=== PATIENT | male | born 1955 | race Caucasian/White ===

== ENCOUNTER → 2019-10-06 10:58 | Outpatient (BNVA) | payer MEDICARE, SELFPAY | PROVIDERS: Family Provider Nurse Practitioner Family; PCP Nurse Practitioner Family; Visit Provider Internal Medicine Cardiovascular Disease | DX: I73.9 Peripheral vascular disease, unspecified (principal); I10 Essential (primary) hypertension; Z98.890 Other specified postprocedural states; E78.5 Hyperlipidemia, unspecified; J44.9 Chronic obstructive pulmonary disease, unspecified; Z72.0 Tobacco use | CPT/HCPCS: 80048; 85025 ==

== ENCOUNTER 2020-04-07 09:22 | Emergency (ER) | payer MEDICARE, SELFPAY ==
[2020-04-07] VITALS (8 sets, daily range): BP systolic 101–136; BP diastolic 64–95; PULSE 67–90; RESP 15–20; TEMP 36.4; O2SAT 94–95; BMI 22.3
--- NOTE | 2020-04-07 09:37 | XRR_ITS ---
PROCEDURE INFORMATION: Exam: XR Chest, 1 View Exam date and time: 04/07/2020 9:38 AM Age: 64 years old Clinical indication: Chest pain; Type not specified TECHNIQUE: Imaging protocol: XR of the chest Views: 1 view. COMPARISON: CR Chest 1 [place] [address] 09/29/2018 1:11 PM FINDINGS: Lungs: COPD and interstitial prominence. Pleural space: Mild costophrenic angle blunting. Heart/Mediastinum: No cardiomegaly. Vasculature: Ectasia of the thoracic aorta. Bones/joints: Degenerative change. Soft tissues: Bilateral nipple shadows. XR/XR chest 1V portable [id number] IMPRESSION: COPD and interstitial prominence.
--- NOTE | 2020-04-07 09:37 | ECG_ITS ---
[facility] Test Date: 2020-04-07 Pat Name: Karthik Gordon Department: Room: Gender: Male Director Search Marketing Strategies: : 1955 Requested By: Garrett Vergara Order Number: [id number] Patti MD: Sarah Meza M.D. Measurements Intervals [place] Rate: 63 P: 71 [place]: 175 QRS: 71 QRSD: 105 T: 76 QT: 405 QTc: 417 Interpretive Statements SINUS RHYTHM Compared to ECG 04/07/2020 11:26:33 Sinus bradycardia no longer present Electronically Signed On 04-08-2020 8:37:28 CDT by Sarah Meza M.D. [id number]
--- NOTE | 2020-04-07 09:45 | W.ED.CHESTPA ---
HPI - Chest Pain General: Chief Complaint: Chest Pain Stated Complaint: CP Time Seen by Provider: 04/07/20 09:24 History of Present Illness: HPI narrative: 64-year-old male comes in complaining of chest pain. Chest pain began yesterday morning and lasted throughout the day he works throughout the day as well. He went to sleep last night woke up he still had the chest pain so he took a single nitro and low back sleep and woke up this morning he was still having the pain. He notes the pain is worse when he takes a deep breath is also worse when he palpates across the left upper anterior chest wall pain does not radiate into his neck or jaw or back. He is not had any syncopal episodes he does state this morning he was diaphoretic little bit due to the pain and it was difficult to take a deep breath. 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) Associated symptoms: Reports no associated symptoms; Deny abdominal pain, dyspnea, fever(s), nausea or vomiting Treatment prior to arrival: nitroglycerin (Did not resolve) Review of Systems Const: Denies: fever(s), chills, body aches, change in appetite, fatigue or malaise ENMT: Denies: throat pain, ear or mastoid pain, nasal discharge or nasal congestion Card: Denies: chest pain, edema, dyspnea on exertion or orthopnea Resp: Denies: dyspnea, productive cough or non-productive cough GI: Denies: abdominal pain, nausea, vomiting, hematemesis, coffee ground emesis, diarrhea, constipation, bloating, hematochezia or melena : Denies: flank pain, dysuria, urinary frequency or urinary urgency Skin/Breast: Denies: rash or pruritus PFS ED PFSH: Medical History COPD (chronic obstructive pulmonary disease) Erectile 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 HTN (hypertension) Hyperlipidemia PAD (peripheral artery disease) S/P angiogram of extremity Tobacco abuse Family History Father Diabetes Brother , AGE 60 CAD (coronary artery disease) Myocardial infarction Mother Diabetes Grandfather Diabetes MATERNAL Grandmother Diabetes MATERNAL Social History Smoking and tobacco status: current every day smoker cigarettes Alcohol intake: current Alcohol intake frequency: holidays/special occasions only Marital status: service: No 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 occupational status: 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 Physical Exam Const: COMMON NORMALS: no acute distress GENERAL APPEARANCE: cooperative and comfortable ORIENTATION/CONSCIOUSNESS: Yes awake, Yes oriented to person, Yes oriented to place and Yes oriented to time HENMT: COMMON NORMALS: normocephalic and atraumatic HEAD & SCALP: normocephalic and atraumatic Eye: COMMON NORMALS: Equal, round and reactive pupils present, EOMs intact bilaterally, conjunctivae normal and no scleral icterus CONJUNCTIVA: Yes conjunctivae normal PUPIL: Yes Equal, round and reactive pupils present Neck/C-Spine: COMMON NORMALS: full ROM, no lymphadenopathy, supple and no JVD Lymph: LYMPHATIC: no lymphadenopathy noted and no lymphedema noted Chest: OTHER: Chest pain reproducible with palpation across the left side of the anterior chest wall as well as with deep inspiration and movement of the arm. Patient endorses that the same pain that brought him in. Resp: COMMON NORMALS: normal respiratory effort, No retractions, No use of accessory muscles and clear to auscultation bilaterally AUSCULTATION: clear to auscultation bilaterally Cardio: COMMON NORMALS: no JVD, regular rate, regular rhythm and No murmurs present (Cardio) RATE: regular rate RHYTHM: regular rhythm GI: COMMON NORMALS: Soft to palpation and No hepatosplenomegaly present AUSCULTATION: Yes normoactive bowel sounds PALPATION: Yes Soft to palpation, No Tenderness to palpation present (GI), No Guarding due to palpation present (GI) and Yes No hepatosplenomegaly present Extremity: COMMON NORMALS: normal to inspection, capillary refill normal, no clubbing, cyanosis or edema, no calf tenderness and no pedal edema Neuro: SENSORIUM/ORIENTATION: Yes oriented to person, Yes oriented to place and Yes oriented to time Skin: COMMON NORMALS: no rashes or lesions noted GENERAL SKIN EXAM: no rashes or lesions noted Course Vital Signs: Vital signs: Vital Signs Temperature 97.6 F 04/07/20 09:24 Pulse Rate 67 04/07/20 15:55 Respiratory Rate 18 04/07/20 15:55 Blood Pressure 136/95 04/07/20 15:55 Pulse Oximetry 95 04/07/20 09:33 MDM - Chest Pain MDM Narrative: Medical decision making narrative: Troponin negative EKG unremarkable. History not suggestive of cardiac pain at this time. Concerning prior as he does have a history of coronary disease he is not having anything related to an aerobic exertion and is completely reproducible with palpation and position and movement of the arm. We will go ahead and discharge her for today continue same medications return if has any problems and we will set him up for an outpatient stress test Lab Data: Labs: Lab Results 04/07/20 04/07/20 04/07/20 Range/Units 14:10 14:10 14:10 WBC 4.8 (4.0-10.0) 10^3/ uL RBC 4.26 (4.1-5.3) 10^6/u L Hgb 12.8 (11.7-16.6) g/dL Hct 39.8 L (42.0-52.0) % MCV 93.4 (80-94) fL MCH 30.0 (28.0-34.0) pg MCHC 32.2 (30.0-36.0) g/dL RDW 12.6 (12.1-15.1) % Plt Count 241 (130-400) 10^3/c mm MPV 9.1 (7.4-10.4) fL Neut % (Auto) 71.8 % Lymph % (Auto) 19.7 % [place] % (Auto) 5.8 % Eos % (Auto) 1.7 % Baso % (Auto) 0.8 % Neut # (Auto) 3.47 (1.8-7.7) 10^3/u L Lymph # (Auto) 1.0 (0.8-4.8) 10^3/u L [place] # (Auto) 0.3 (0.2-0.9) 10^3/u L Eos # (Auto) 0.1 (0.0-0.8) 10^3/u L Baso # (Auto) 0.0 (0.0-0.1) 10^3/u L Nucleated RBC % (a uto) 0 % Nucleated RBCs # 0.0 /100WBC Sodium 138 (136-145) mmol/L Potassium 4.3 (3.5-5.1) mmol/L Chloride 106 (98-107) mmol/L Carbon Dioxide 23 (22-29) mmol/L Anion Gap 13.3 (5-19) BUN 18 (8-23) mg/dL Creatinine 0.9 (0.7-1.2) mg/dL GFR Calculation 84.7 L (90-130) mL/min Glucose 128 H (65-115) mg/dL Calculated Osmolal ity 284 L (285-295) mOsm/k g Calcium 9.3 (8.5-10.5) mg/dL Total Bilirubin 1.0 (0.15-1.2) mg/dL AST 16 (0-40) U/L ALT 14 (0-41) U/L Alkaline Phosphata se 92 (40-130) IU/L Troponin T Baselin e 14 (0-15) ng/L Total Protein 6.2 L (6.6-8.7) g/dL Albumin 4.2 (3.5-5.2) g/dL Globulin 2.0 (1.3-4.6) g/dL Discharge Plan Discharge Patient Disposition: Home Clinical Impression: Anterior chest wall pain Condition: Stable Prescriptions: No Action aspirin [Adult Low Dose Aspirin] 81 mg tablet,delayed release (DR/EC) 81 mg PO DAILY RF: 0 atorvastatin 20 mg tablet 20 mg PO DAILY Qty: 90 RF: 5 cilostazol 100 mg tablet 100 mg PO BID Qty: 180 RF: 5 albuterol sulfate 90 mcg/actuation HFA aerosol inhaler 2 puff INHALATION Q6H PRN (Reason: shortness of breath or wheezing) Qty: 6.7 RF: 2 Symbicort 160-4.5 mcg/actuation HFA aerosol inhaler 2 puff INHALATION BID Qty: 6 RF: 2 clopidogrel 75 mg tablet 75 mg PO DAILY Qty: 90 RF: 3 Referrals: Navjot Barragan MD [Physician] - (Referred for graded exercise stress test) Discharge Diet: Usual diet Discharge Activity: Limit activity as instructed Activity Restrictions/Additional Instructions: Case management will call to set you up with a graded exercise stress test Discharge Date/Time: 04/07/20 15:55 Coding Level of Care Code ED Finisher Polisher for Kvng Fwd Exam Comprehensive
--- NOTE | 2020-04-07 11:37 | ECG_ITS ---
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 Measurements Intervals [place] Rate: 58 P: 71 [place]: 184 QRS: 71 QRSD: 88 T: 79 QT: 441 QTc: 435 Interpretive Statements SINUS BRADYCARDIA Compared to ECG 04/07/2020 09:30:02 Sinus rhythm no longer present Electronically Signed On 04-07-2020 12:44:00 CDT by Sarah Meza M.D. [id number]
[2020-04-07 14:22] LABS: Basophils % 0.8 %; Eosinophils # 0.1 10^3/uL (0.0-0.8); Eosinophils % 1.7 %; Hematocrit 39.8 % (42.0-52.0); Hemoglobin 12.8 g/dL (11.7-16.6); Lymphocytes % 19.7 %; Mean Corpuscular HGB Conc 32.2 g/dL (30.0-36.0); Mean Corpuscular Volume 93.4 fL (80-94); Mean Platelet Volume 9.1 fL (7.4-10.4); Monocytes # 0.3 10^3/uL (0.2-0.9); Monocytes % 5.8 %; Neutrophils # 3.47 10^3/uL (1.8-7.7); Neutrophils % 71.8 %; Nucleated Red Blood Cells % 0 %; Platelet Count 241 10^3/cmm (130-400); Red Blood Count 4.26 10^6/uL (4.1-5.3); Red Cell Distribution Width 12.6 % (12.1-15.1); White Blood Count 4.8 10^3/uL (4.0-10.0)
[2020-04-07 15:03] LABS: Alanine Aminotransferase 14 U/L (0-41); Albumin Level 4.2 g/dL (3.5-5.2); Alkaline Phosphatase 92 IU/L (40-130); Anion Gap 13.3 (5-19); Aspartate Amino Transferase 16 U/L (0-40); Blood Urea Nitrogen 18 mg/dL (8-23); Calcium 9.3 mg/dL (8.5-10.5); Carbon Dioxide 23 mmol/L (22-29); Chloride 106 mmol/L (98-107); Glomerular Filtration Rate 84.7 mL/min (90-130); Glucose 128 mg/dL (65-115); Osmolality Calculated 284 mOsm/kg (285-295); Potassium 4.3 mmol/L (3.5-5.1); Sodium 138 mmol/L (136-145); Total Protein 6.2 g/dL (6.6-8.7)
[2020-04-07 15:05] LABS: Troponin(5th) Baseline 14 ng/L (0-15)
--- NOTE | 2020-04-07 15:37 | ECG_ITS ---
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 Measurements Intervals [place] Rate: 84 P: 75 [place]: 181 QRS: 76 QRSD: 93 T: 75 QT: 390 QTc: 462 Interpretive Statements SINUS RHYTHM POSSIBLE LEFT ATRIAL ENLARGEMENT [-0.1mV P WAVE IN V1/V2] Compared to ECG 09/29/2018 12:30:26 No significant changes Electronically Signed On 04-07-2020 12:44:05 CDT by Sarah Meza M.D. [email or web address] [email or web address].MJH/store/[id number]
--- NOTE | 2020-04-09 14:53 | DCPLANNER ---
architectural manager had message to schedule an outpatient stress test for patient. architectural manager got order signed, faxed order to centralized scheduling. architectural manager got conformation that fax was received by centralized scheduling. architectural manager will call for appointment information.
--- NOTE | 2020-04-13 11:10 | DCPLANNER ---
Patient has an out patient stress test scheduled for Friday, April 24, 2020 at 1:00. Centralized scheduling will call patient with appointment information.
--- NOTE | 2020-05-24 07:50 | DCPLANNER ---
Patient had an outpatient stress test scheduled for 04.24.20 - patient did attend the stress test.
== END 2020-04-07 15:55 | disposition home or self-care (01) ==
PROVIDERS: Emergency Provider Family Medicine; PCP Nurse Practitioner Family
DX: R07.89 Other chest pain (principal); Z79.02 Long term (current) use of antithrombotics/antiplatelets; Z79.82 Long term (current) use of aspirin; J44.9 Chronic obstructive pulmonary disease, unspecified; I10 Essential (primary) hypertension; E78.5 Hyperlipidemia, unspecified; F17.210 Nicotine dependence, cigarettes, uncomplicated
CPT/HCPCS: 12345; 71045; 80053; 84484; 85025; 93005; 99282; 99284

== ENCOUNTER 2020-04-24 12:11 | Outpatient (CLI) | payer MEDICARE, SELFPAY ==
[2020-04-24 13:00] VITALS: BMI 23.0
--- NOTE | 2020-04-24 13:00 | ECG_ITS ---
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 Interpretive Statements NAME OF STUDY: TREADMILL STRESS TEST INDICATION: Chest Pain EXERCISE DATA: The patient was exercised by Travon protocol. Baseline heart rate was 63 beats per minute. Baseline blood pressure was 127/66 millimeters of mercury. Target heart rate was 155 beats per minute. Maximum heart rate achieved was 132, which was 85 % of the target heart rate. Maximum blood pressure was 186/85 millimeters of mercury. Total exercise time was 8 minutes 22. Maximum METs achieved was 10.2, maximum VO2 was 35.7. The reason for ending the test was maximum effort achieved. The patient complained of during the stress test, which then resolved at the end of the test. ELECTROCARDIOGRAM: BASELINE: Sinus rhythm, normal axis, no significant ST-T changes at the baseline noted. EXERCISE: At the peak exercise level, no significant ST-T changes suggestive of ischemia noted. RECOVERY: During the recovery period, heart rate dropped appropriately. No significant ST-T changes in the recovery suggestive of ischemia noted. CONCLUSION: 1. Exercise capacity. 2. Heart rate response was appropriate. 3. Blood pressure response was appropriate. 4. Symptoms not suggestive of ischemia. 5. Electrocardiogram portion of the stress test was not suggestive of ischemia. 6. Nuclear scan will be documented separately. Electronically Signed On 05-02-2020 19:14:47 CDT by Navjot Barragan M.D. [id number]
[2020-04-24 13:14] VITALS: BP 182/78; PULSE 90
== END 2020-04-24 12:12 | disposition home or self-care (01) ==
PROVIDERS: PCP Nurse Practitioner Family; Visit Provider Internal Medicine Cardiovascular Disease
DX: R07.89 Other chest pain (principal); I10 Essential (primary) hypertension; I73.9 Peripheral vascular disease, unspecified
CPT/HCPCS: 93017

== ENCOUNTER 2021-01-03 07:31 | Emergency (ER) | payer MEDICARE, SELFPAY ==
[2021-01-03 07:36] VITALS: BP 134/82; PULSE 100; RESP 18; TEMP 36.4; O2SAT 96; BMI 22.9
--- NOTE | 2021-01-03 07:45 | XR_ITS ---
WS: [id number] Portable AP upright chest, 01/03/2021 Clinical Data: dyspnea/cough Comparison: Portable chest, 04/07/2020. Findings: No nodules, masses or effusions are seen. The heart is normal. The pulmonary vascularity is not increased. No pneumonia or pneumothorax is seen. The diaphragms are flattened. Monitor leads are on the chest wall. XR/XR chest 1V portable [id number] Impression: Hyperinflation.
--- NOTE | 2021-01-03 07:46 | CT_ITS ---
WS: [id number] CT scan of the head, 01/03/2021 Clinical Data: headache x 2 wks Comparison: CT head, 02/18/2016. DLP: 958.[address] scans at [facility] use at least one of these dose optimization techniques: automat ed exposure control; mA and/or kV adjustment per patient size (includes targeted exams where dose is matched to clinical indication); or iterative reconstruction. Findings: The ventricular system is modestly dilated without shift. No recent infarct or hemorrhage is seen. Th ere are no abnormal intracerebral masses. The cerebellum and brainstem are not remarkable. Bony windows of the skull and skull base show no fractures or erosions. The mastoid air cells, international project engineer al auditory canals, sella turcica, intraorbital contents, and paranasal sinuses are unremarkable. CT/CT head wo con* [id number] Impression: Negative CT scan of the head
--- NOTE | 2021-01-03 07:46 | ECG_ITS ---
[facility] Test Date: 2021-01-03 Pat Name: Karthik Gordon Department: Room: Gender: Male Back Tender: : 1955 Requested By: Garrett Vergara Order Number: [id number] Patti MD: Coco Yarbrough M.D. Measurements Intervals [place] Rate: 82 P: 73 WI: 177 QRS: 84 QRSD: 91 T: 77 QT: 389 QTc: 457 Interpretive Statements SINUS RHYTHM Compared to ECG 04/07/2020 15:27:20 No significant changes Electronically Signed On 01-03-2021 20:48:04 CDT by Coco Yarbrough M.D. [email or web address] [facility] hospitalAlien Technologyohio[facility] hospitalShang[facility] e[employer]store/[id number]
--- NOTE | 2021-01-03 07:55 | W.ED.WEAKNES ---
HPI - Weakness General: Chief complaint: Weakness Stated complaint: Consistent Head Pain/Weakness Time Seen by Provider: 01/03/21 07:37 History of Present Illness: HPI Narrative: 65-year-old male presents to the emergency room complaining of just not feeling well. He states he feels weak a shaking and he has headaches that come and go. He has not previously had significant headaches in the past. Headaches are predominantly on the left frontal area. They do not affect his vision has not had any dizziness no photophobia or photophobia has tried some [id number] medications for them. He denies any difficulty with vision speech or swallowing that does not affect his gait or balance. MD Complaint: generalized weakness Onset (ago): week(s) (2) Duration: intermittent Location: generalized Severity: moderate Quality: aching Relieving factors: none Exacerbating factors: none Associated symptoms: Reports headache(s); Denies chest pain, chills, confusion, melena, decreased appetite, diaphoresis, dysuria, easy bruising, fever(s), myalgias, nausea, rash, short of breath, syncope or vomiting Review of Systems Const: Denies: fever(s), chills or diaphoresis ENMT: Denies: throat pain, ear or mastoid pain, nasal discharge or nasal congestion Card: Denies: chest pain or syncope Resp: Denies: dyspnea, productive cough or non-productive cough GI: Denies: nausea, vomiting or melena : Denies: dysuria Skin/Breast: Denies: rash or pruritus Neuro: Reports: headache(s); Denies: confusion Regis/Lymph: Denies: easy bruising PFSH ED PFSH: Medical History CAD (coronary artery disease) COPD (chronic obstructive pulmonary disease) Erectile 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 HTN (hypertension) Hyperlipidemia PAD (peripheral artery disease) S/P angiogram of extremity Tobacco abuse Family History Father Diabetes Brother , AGE 60 CAD (coronary artery disease) Myocardial infarction Mother Diabetes Grandfather Diabetes MATERNAL Grandmother Diabetes MATERNAL Social History Smoking and tobacco status: current every day smoker cigarettes Alcohol intake: current Alcohol intake frequency: holidays/special occasions only Marital status: service: No 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 occupational status: 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 Physical Exam Const: COMMON NORMALS: no acute distress GENERAL APPEARANCE: cooperative and comfortable ORIENTATION/CONSCIOUSNESS: Yes awake, Yes oriented to person, Yes oriented to place and Yes oriented to time HENMT: COMMON NORMALS: normocephalic, atraumatic, hearing grossly normal bilaterally, external ears normal, EAC's normal, TM's normal bilaterally, Normal nasal mucous membranes and turbinates present, moist oral mucous membranes and oropharynx normal HEAD & SCALP: normocephalic and atraumatic NOSE: Normal nasal mucous membranes and turbinates present EXTERNAL EAR: Yes external ears normal EXTERNAL AUDITORY CANAL: EAC's normal TYMPANIC MEMBRANE: TM's normal bilaterally Eye: COMMON NORMALS: Equal, round and reactive pupils present, EOMs intact bilaterally, conjunctivae normal and no scleral icterus CONJUNCTIVA: Yes conjunctivae normal PUPIL: Yes Equal, round and reactive pupils present Neck/C-Spine: COMMON NORMALS: full ROM, no lymphadenopathy, supple and no JVD Lymph: LYMPHATIC: no lymphadenopathy noted and no lymphedema noted Resp: COMMON NORMALS: normal respiratory effort, No retractions, No use of accessory muscles and clear to auscultation bilaterally AUSCULTATION: clear to auscultation bilaterally Cardio: COMMON NORMALS: no JVD, regular rate, regular rhythm and No murmurs present (Cardio) RATE: regular rate RHYTHM: regular rhythm GI: COMMON NORMALS: Soft to palpation and No hepatosplenomegaly present AUSCULTATION: Yes normoactive bowel sounds PALPATION: Yes Soft to palpation, No Tenderness to palpation present (GI), No Guarding due to palpation present (GI) and Yes No hepatosplenomegaly present Extremity: COMMON NORMALS: normal to inspection, capillary refill normal, no clubbing, cyanosis or edema, no calf tenderness and no pedal edema Neuro: SENSORIUM/ORIENTATION: Yes oriented to person, Yes oriented to place and Yes oriented to time Skin: COMMON NORMALS: no rashes or lesions noted GENERAL SKIN EXAM: no rashes or lesions noted Course Vital Signs: Vital signs: Vital Signs Temperature 97.6 F 01/03/21 07:36 Pulse Rate 68 01/03/21 10:10 Respiratory Rate 18 01/03/21 10:10 Blood Pressure 122/74 01/03/21 10:10 Pulse Oximetry 98 01/03/21 10:10 MDM - Weakness MDM Narrative: Medical decision making narrative: We will discharge patient home reviewed findings and recommended that he establish with a primary care physician for further evaluation. His troponins were negative. He is denying any chest pain his biggest problem is headache the rest of his work-up left fine at this time return if he has further problems Case management will help him get set up with a PCP. Lab Data: Labs: Lab Results 01/03/21 01/03/21 01/03/21 Range/Units 07:50 07:50 07:50 WBC 8.2 (4.0-10.0) 10^3/ uL RBC 4.76 (4.1-5.3) 10^6/u L Hgb 14.3 (11.7-16.6) g/dL Hct 44.3 (42.0-52.0) % MCV 93.1 (80-94) fL MCH 30.0 (28.0-34.0) pg MCHC 32.3 (30.0-36.0) g/dL RDW 13.0 (12.1-15.1) % Plt Count 371 (130-400) 10^3/c mm MPV 9.0 (7.4-10.4) fL Neut % (Auto) 71.5 % Lymph % (Auto) 20.7 % [place] % (Auto) 4.9 % Eos % (Auto) 2.0 % Baso % (Auto) 0.7 % Neut # (Auto) 5.83 (1.8-7.7) 10^3/u L Lymph # (Auto) 1.7 (0.8-4.8) 10^3/u L [place] # (Auto) 0.4 (0.2-0.9) 10^3/u L Eos # (Auto) 0.2 (0.0-0.8) 10^3/u L Baso # (Auto) 0.1 (0.0-0.1) 10^3/u L Nucleated RBC % (a uto) 0 % Nucleated RBCs # 0.0 /100WBC Specimen Type Sample Site ABG pH (7.35-7.45) ABG pCO2 (35-45) mmHg ABG pO2 (80.0-100.0) mmH g ABG HCO3 (22-26) mmol/L ABG O2 Saturation ABG Base Excess (-2.0-2.0) mmol/ L Michael Test A-a O2 Gradient (5-10) mmHg Hematocrit (42-52) % Hgb O2 Saturation (95-100) % Carboxyhemoglobin (0.4-20.1) %THgb Methemoglobin (0.4-1.5) % Total Hemoglobin (14-18) g/dL Ionized Calcium (1.1-1.4) mmol/L O2 Delivery Device Transportation Maintenance Supervisor ID Sodium 137 (136-145) mmol/L Potassium 4.2 (3.5-5.1) mmol/L Chloride 100 (98-107) mmol/L Carbon Dioxide 26 (22-29) mmol/L Anion Gap 15.2 (5-19) BUN 23 (8-23) mg/dL Creatinine 1.1 (0.7-1.2) mg/dL GFR Calculation 67.0 L (90-130) mL/min Glucose 128 H (65-115) mg/dL Calculated Osmolal ity 289 (285-295) mOsm/k g Calcium 9.0 (8.5-10.5) mg/dL Magnesium 2.0 (1.7-2.3) mg/dL Total Bilirubin 1.1 (0.15-1.2) mg/dL AST 14 (0-40) U/L ALT 15 (0-41) U/L Alkaline Phosphata se 127 (40-130) IU/L Creatine Kinase 63 (39-308) U/L Troponin T Baselin e 32 H (0-15) ng/L Troponin T 120 Min stella (0-15) ng/L Delta Troponin T (0-10) ABS# Total Protein 6.9 (6.6-8.7) g/dL Albumin 4.4 (3.5-5.2) g/dL Globulin 2.5 (1.3-4.6) g/dL Lipase 20 (13-60) U/L 01/03/21 01/03/21 Range/Units 08:55 09:46 WBC (4.0-10.0) 10^3/ uL RBC (4.1-5.3) 10^6/u L Hgb (11.7-16.6) g/dL Hct (42.0-52.0) % MCV (80-94) fL MCH (28.0-34.0) pg MCHC (30.0-36.0) g/dL RDW (12.1-15.1) % Plt Count (130-400) 10^3/c mm MPV (7.4-10.4) fL Neut % (Auto) % Lymph % (Auto) % [place] % (Auto) % Eos % (Auto) % Baso % (Auto) % Neut # (Auto) (1.8-7.7) 10^3/u L Lymph # (Auto) (0.8-4.8) 10^3/u L [place] # (Auto) (0.2-0.9) 10^3/u L Eos # (Auto) (0.0-0.8) 10^3/u L Baso # (Auto) (0.0-0.1) 10^3/u L Nucleated RBC % (a uto) % Nucleated RBCs # /100WBC Specimen Type Arterial Sample Site Brachial, right ABG pH 7.44 (7.35-7.45) ABG pCO2 37.0 (35-45) mmHg ABG pO2 75.5 L (80.0-100.0) mmH g ABG HCO3 24.9 (22-26) mmol/L ABG O2 Saturation 96.2 ABG Base Excess 0.9 (-2.0-2.0) mmol/ L Michael Test N/a A-a O2 Gradient 3.7 L (5-10) mmHg Hematocrit 41.1 L (42-52) % Hgb O2 Saturation 93.0 L (95-100) % Carboxyhemoglobin 2.4 (0.4-20.1) %THgb Methemoglobin 0.9 (0.4-1.5) % Total Hemoglobin 13.4 L (14-18) g/dL Ionized Calcium 1.2 (1.1-1.4) mmol/L O2 Delivery Device Room air Transportation Maintenance Supervisor ID Gd Sodium 138.0 (136-145) mmol/L Potassium 4.1 (3.5-5.1) mmol/L Chloride (98-107) mmol/L Carbon Dioxide (22-29) mmol/L Anion Gap (5-19) BUN (8-23) mg/dL Creatinine (0.7-1.2) mg/dL GFR Calculation (90-130) mL/min Glucose 100.0 (65-115) mg/dL Calculated Osmolal ity (285-295) mOsm/k g Calcium (8.5-10.5) mg/dL Magnesium (1.7-2.3) mg/dL Total Bilirubin (0.15-1.2) mg/dL AST (0-40) U/L ALT (0-41) U/L Alkaline Phosphata se (40-130) IU/L Creatine Kinase (39-308) U/L Troponin T Baselin e (0-15) ng/L Troponin T 120 Min stella 25.45 H (0-15) ng/L Delta Troponin T -6.55 L (0-10) ABS# Total Protein (6.6-8.7) g/dL Albumin (3.5-5.2) g/dL Globulin (1.3-4.6) g/dL Lipase (13-60) U/L EKG Data^: EKG 1: Attestation: I personally reviewed and interpreted this EKG as follows: EKG interpretation date: 01/03/21 EKG interpretation time: 08:04 Interpretation: Normal sinus rhythm rate of 82 with a normal MT interval no ST segment changes. Nonpathologic Q waves in 2 3 and aVF. EKG is unchanged from EKG 04/07/2020 Discharge Plan Discharge Patient Disposition: Home Clinical Impression: Weakness Condition: Stable Prescriptions: No Action aspirin [Adult Low Dose Aspirin] 81 mg tablet,delayed release (DR/EC) 81 mg PO DAILY RF: 0 isosorbide mononitrate 30 mg tablet extended release 24 hr 15 mg PO BID Qty: 30 RF: 3 atorvastatin 20 mg tablet 20 mg PO DAILY Qty: 90 RF: 5 cilostazol 100 mg tablet 100 mg PO BID Qty: 180 RF: 5 albuterol sulfate 90 mcg/actuation HFA aerosol inhaler 2 puff INHALATION Q6H PRN (Reason: shortness of breath or wheezing) Qty: 6.7 RF: 2 Symbicort 160-4.5 mcg/actuation HFA aerosol inhaler 2 puff INHALATION BID Qty: 6 RF: 2 clopidogrel 75 mg tablet 75 mg PO DAILY Qty: 90 RF: 3 Discharge Orders: Discharge ED (Routine); Ordered 01/03/21 Ordered By: Garrett Warner Discharge Diet: Usual diet Discharge Activity: Increase activity as tolerated Patient Instructions: Opioid Safety Activity Restrictions/Additional Instructions: Case management will contact you to assist in establishing with a primary care doctor for further evaluation Coding Level of Care Code ED Continuous Process Machine Operator for Vinnieg Fwd Exam Comprehensive
[2021-01-03 08:06] LABS: Basophils # 0.1 10^3/uL (0.0-0.1); Basophils % 0.7 %; Eosinophils # 0.2 10^3/uL (0.0-0.8); Hematocrit 44.3 % (42.0-52.0); Hemoglobin 14.3 g/dL (11.7-16.6); Lymphocytes # 1.7 10^3/uL (0.8-4.8); Lymphocytes % 20.7 %; Mean Corpuscular HGB Conc 32.3 g/dL (30.0-36.0); Mean Corpuscular Volume 93.1 fL (80-94); Monocytes # 0.4 10^3/uL (0.2-0.9); Monocytes % 4.9 %; Neutrophils # 5.83 10^3/uL (1.8-7.7); Neutrophils % 71.5 %; Nucleated Red Blood Cells % 0 %; Platelet Count 371 10^3/cmm (130-400); Red Blood Count 4.76 10^6/uL (4.1-5.3); White Blood Count 8.2 10^3/uL (4.0-10.0)
[2021-01-03 08:10] VITALS: BP 118/64; PULSE 99; RESP 18; O2SAT 98
[2021-01-03 08:11] VITALS: PULSE 98
[2021-01-03 08:26] LABS: Alanine Aminotransferase 15 U/L (0-41); Albumin Level 4.4 g/dL (3.5-5.2); Alkaline Phosphatase 127 IU/L (40-130); Anion Gap 15.2 (5-19); Aspartate Amino Transferase 14 U/L (0-40); Blood Urea Nitrogen 23 mg/dL (8-23); Carbon Dioxide 26 mmol/L (22-29); Chloride 100 mmol/L (98-107); Creatine Phosphokinase 63 U/L (39-308); Creatinine Clr Calc Pharmacy 72.1526; Globulin 2.5 g/dL (1.3-4.6); Glucose 128 mg/dL (65-115); Lipase 20 U/L (13-60); Osmolality Calculated 289 mOsm/kg (285-295); Potassium 4.2 mmol/L (3.5-5.1); Sodium 137 mmol/L (136-145); Total Bilirubin 1.1 mg/dL (0.15-1.2); Total Protein 6.9 g/dL (6.6-8.7)
[2021-01-03 08:28] LABS: Troponin(5th) Baseline 32 ng/L (0-15)
--- NOTE | 2021-01-03 08:38 | PC.NURSE ---
Patient refused cath at this time, Dr Warner notified.
[2021-01-03 09:13] LABS: ABG PH Result 7.44 (7.35-7.45); Alveolar-Arterial Oxygen Gradi 3.7 mmHg (5-10); Arterial Blood Gas Hematocrit 41.1 % (42-52); Base Excess ABG 0.9 mmol/L (-2.0-2.0); Blood Gas Operator Identificat GD; Blood Gas Sample Site Brachial, right; Blood Gas Sample Type Arterial; Carboxyhemoglobin 2.4 %THgb (0.4-20.1); HCO3 ABG 24.9 mmol/L (22-26); Ionized Calcium Level - ABG 1.2 mmol/L (1.1-1.4); Methemoglobin 0.9 % (0.4-1.5); Oxygen Device ROOM AIR; Oxygen Saturation ABG 96.2; PO2 ABG 75.5 mmHg (80.0-100.0); Potassium Level - ABG 4.1 mmol/L (3.5-5.0); Total Hemoglobin 13.4 g/dL (14-18)
--- NOTE | 2021-01-03 09:46 | ECG_ITS ---
[facility] Test Date: 2021-01-03 Pat Name: Karthik Gordon Department: Room: Gender: Male Raw Scales Operator: : 1955 Requested By: Garrett Vergara Order Number: [id number] Patti MD: Coco Yarbrough M.D. Measurements Intervals [place] Rate: 76 P: 73 OR: 176 QRS: 83 QRSD: 92 T: 78 QT: 402 QTc: 452 Interpretive Statements SINUS RHYTHM Compared to ECG 01/03/2021 08:04:31 No significant changes Electronically Signed On 01-03-2021 20:52:04 CDT by Coco Yarbrough M.D. [id number]
[2021-01-03 10:10] VITALS: BP 122/74; PULSE 68; RESP 18; O2SAT 98
[2021-01-03 10:13] LABS: Troponin 5 2HR 25.45 ng/L (0-15)
[2021-01-03 10:59] VITALS: BP 122/74; PULSE 68; RESP 18; O2SAT 98
--- NOTE | 2021-01-06 09:27 | PC.NURSE ---
Pt left prescription medications, called regarding his leaving medications, message left to call back.
--- NOTE | 2021-01-09 12:50 | DCPLANNER ---
manager supply chain had message to schedule a follow up appointment for patient with Dr. Rodriguez to establish with for primary care. manager supply chain called the office of Dr. Rodriguez, spoke with Suyapa, gave clinic patients information. A follow up appointment was scheduled for Thursday, January 23, 2021 at 1:[address] Rodriguez. Clinic will call patient with appointment information.
--- NOTE | 2021-03-20 07:41 | DCPLANNER ---
Patient had a follow up appointment scheduled for 01.23.[address] Rodriguez - patient did attend appointment.
== END 2021-01-03 10:59 | disposition home or self-care (01) ==
PROVIDERS: Emergency Provider Family Medicine
DX: R53.1 Weakness (principal); Z79.02 Long term (current) use of antithrombotics/antiplatelets; Z79.82 Long term (current) use of aspirin; I25.10 Atherosclerotic heart disease of native coronary artery without angina pectoris; J44.9 Chronic obstructive pulmonary disease, unspecified; I10 Essential (primary) hypertension; E78.5 Hyperlipidemia, unspecified; F17.210 Nicotine dependence, cigarettes, uncomplicated
CPT/HCPCS: 36415; 36600; 70450; 71045; 80051; 80053; 82330; 82550; 82805; 83690; 83735; 84484; 85025; 93005; 99284

== ENCOUNTER 2021-06-25 07:48 | Outpatient (CLI) | payer MEDICARE, SELFPAY ==
--- NOTE | 2021-06-25 08:00 | MR_ITS ---
WS: [id number] MRI RIGHT SHOULDER HISTORY: Failed conservative management of right shoulder pain COMPARISON: None available. TECHNIQUE: Multiplanar sequences of the shoulder joint are submitted. Moderate to severe AC joint arthritis. Osteophytes and thickening of the joint capsule extends 5 mm t owards the supraspinatus tendon and muscle. Humeral head is also high riding causing significant narr owing of the subacromial space. No os acromion. Biceps tendon is partially subluxed from the bicipita l groove. There is significant atrophy involving the muscles of the rotator cuff. Most significant atrophy invo lves the supraspinatus and infraspinatus muscles with edema. There is fluid along the tendon sheaths. There is a large amount of fluid in the subacromial recess. Complete tear with retraction of the supraspinatus tendon. Tendon is retracted to the medial humeral head. Infraspinatus tendon is also torn and retracted. Subscapularis tendon is intact. No definite la bral tears are identified. There is intrasubstance degeneration within the labrum. MR/MR shoulder RT wo con* [id number] IMPRESSION: 1. Complete tears with retraction to the medial humeral head of the supraspina tus and infraspinatus tendons. 2. Marked atrophy and edema within the supraspinatus and infraspinatus muscles . 3. High riding humeral head with narrowing of the subacromial space. 4. Moderate to severe AC joint arthritis with osteophyte encroachment upon the supraspinatus. 5. Partial subluxation biceps tendon.
== END 2021-06-25 07:49 | disposition home or self-care (01) ==
PROVIDERS: PCP Internal Medicine; Visit Provider Internal Medicine
DX: M75.91 Shoulder lesion, unspecified, right shoulder (principal); M19.011 Primary osteoarthritis, right shoulder; S46.811A Strain of other muscles, fascia and tendons at shoulder and upper arm level, right arm, initial encounter; X58.XXXA Exposure to other specified factors, initial encounter
CPT/HCPCS: 73221

== ENCOUNTER → 2021-07-01 09:04 | Outpatient (BNVA) | payer MEDICARE, SELFPAY | PROVIDERS: PCP Internal Medicine; Visit Provider Internal Medicine | DX: I25.10 Atherosclerotic heart disease of native coronary artery without angina pectoris (principal) | CPT/HCPCS: 80053; 80061; 84443 ==

== ENCOUNTER 2021-08-27 05:13 | Emergency (ER) | payer MEDICARE, SELFPAY ==
[2021-08-27 05:18] VITALS: BP 157/88; PULSE 91; RESP 18; TEMP 36.9; O2SAT 96; BMI 22.3
--- NOTE | 2021-08-27 05:23 | XRR_ITS ---
PROCEDURE INFORMATION: Exam: XR Right Hand Exam date and time: 08/27/2021 5:23 AM Age: 66 years old Clinical indication: Pain; Swelling; Fingers; Right; Finger(s); Additional info: Thumb pain TECHNIQUE: Imaging protocol: XR Right hand. Views: 3 or more views. COMPARISON: No relevant prior studies available. FINDINGS: Bones/joints: No fracture or dislocation. There is mild degenerative changes, involving mainly the DIP joints, manifested by joint space narrowing and periarticular osteophytes. No fracture or dislocation identified. No evidence of focal osteopenia, cortical destruction or periosteal reaction to suggest osteomyelitis. Soft tissues: Swelling of the thumb soft tissues is evident. XR/XR hand RT min 3V* [id number] IMPRESSION: No acute osseous injury.
--- NOTE | 2021-08-27 05:27 | ED_ITS ---
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 He does have swelling to his right thumb that is quite extensive he states it is painful sharp in nature no drainage denies any fevers denies any worsening proving factors. Associated symptoms: Deny chest pain, fever(s) or rash Review of Systems Const: Denies: fever(s), chills, body aches or change in appetite Eyes: Denies: blurry vision or eye discomfort ENMT: Denies: throat pain or dental pain Card: Denies: chest pain Resp: Denies: dyspnea GI: Denies: abdominal pain, nausea, vomiting or diarrhea : Denies: dysuria Musc: Reports: extremity pain and extremity swelling Skin/Breast: Denies: rash Neuro: Denies: headache(s) Psych: Denies: depression Regis/Lymph: Denies: easy bruising All/Imm: Denies: urticaria PFSH ED PFSH: Medical History CAD (coronary artery disease) COPD (chronic obstructive pulmonary disease) Erectile 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 HTN (hypertension) Hyperlipidemia PAD (peripheral artery disease) S/P angiogram of extremity Tobacco abuse Family History Father Diabetes Brother , AGE 60 CAD (coronary artery disease) Myocardial infarction Mother Diabetes Grandfather Diabetes MATERNAL Grandmother Diabetes MATERNAL Social History Alcohol intake: current Alcohol intake frequency: holidays/special occasions on ly Marital status: service: No 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 occupational status: 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 Physical Exam Const: COMMON NORMALS: no acute distress, patient oriented x3 and healthy appearing HENMT: COMMON NORMALS: normocephalic and atraumatic HEAD & SCALP: normocephalic and atraumatic Eye: COMMON NORMALS: Equal, round and reactive pupils present and EOMs intact bilaterally PUPIL: Yes Equal, round and reactive pupils present Neck/C-Spine: COMMON NORMALS: full ROM and supple Chest: COMMONS NORMALS: normal inspection of the chest and normal palpation of entire chest wall Resp: COMMON NORMALS: normal respiratory effort, No retractions, No use of accessory muscles and clear to auscultation bilaterally AUSCULTATION: clear to auscultation bilaterally Cardio: COMMON NORMALS: regular rate, regular rhythm and No murmurs present (Cardio) RATE: regular rate RHYTHM: regular rhythm GI: COMMON NORMALS: Normal to inspection, nondistended, normoactive bowel sounds present, Soft to palpation, non-tender and no masses PALPATION: Yes Soft to palpation Extremity: COMMON NORMALS: full ROM NARRATIVE EXTREMITY EXAM: extensive swelling to the right thumb mainly over the dorsum no tenderness over the flexor Neuro: COMMON NORMALS: patient oriented x3, moves all extremities and no focal motor deficits Psych: COMMON NORMALS: mental status grossly normal, Normal thought process present and cooperative THOUGHT PROCESS: Normal thought process present Skin: COMMON NORMALS: no rashes or lesions noted and no wounds GENERAL SKIN EXAM: no rashes or lesions noted Course Vital Signs: Vital signs: Vital Signs Temperature 98.5 F 08/27/21 05:18 Pulse Rate 93 08/27/21 08:57 Respiratory Rate 16 08/27/21 08:57 Blood Pressure 139/74 08/27/21 08:57 Pulse Oximetry 94 08/27/21 08:57 MDM - Extremity (Nontraumatic) Lab Data: Labs: Lab Results 08/27/21 08/27/21 08/27/21 05:31 05:31 05:31 WBC 4.6 10^3/uL 10^3/ uL (4.0-10.0) RBC 4.35 10^6/uL 10^6 /uL (4.1-5.3) Hgb 12.7 g/dL g/dL (11.7-16.6) Hct 38.8 % L % (42.0-52.0) MCV 89.2 fl fl (80-94) MCH 29.2 pg pg (28.0-34.0) MCHC 32.7 g/dL g/dL (30.0-36.0) RDW 13.1 % % (12.1-15.1) Plt Count 317 10^3/cmm 10^3 /cmm (130-400) MPV 9.4 fL fL (7.4-10.4) Neut % (Auto) 59.8 % % Lymph % (Auto) 27.8 % % [place] % (Auto) 8.8 % % Eos % (Auto) 2.8 % % Baso % (Auto) 0.6 % % Neut # (Auto) 2.77 10^3/uL 10^3 /uL (1.8-7.7) Lymph # (Auto) 1.3 10^3/uL 10^3/ uL (0.8-4.8) [place] # (Auto) 0.4 10^3/uL 10^3/ uL (0.2-0.9) Eos # (Auto) 0.1 10^3/uL 10^3/ uL (0.0-0.8) Baso # (Auto) 0.0 10^3/uL 10^3/ uL (0.0-0.1) Nucleated RBC % (a uto) 0 % % Nucleated RBCs # 0.0 /100WBC /100W BC ESR 30 mm/hr H mm/hr (0-10) Sodium 140 mmol/L mmol/L (136-145) Potassium 4.2 mmol/L mmol/L (3.5-5.1) Chloride 106 mmol/L mmol/L (98-107) Carbon Dioxide 21 mmol/L L mmol/ L (22-29) Anion Gap 17.2 (5-19) BUN 12 mg/dL mg/dL (8-23) Creatinine 0.7 mg/dL mg/dL (0.7-1.2) GFR Calculation 112.5 mL/min mL/m in (90-130) Glucose 113 mg/dL mg/dL (65-115) Calculated Osmolal ity 291 mOsm/kg mOsm/ kg (285-295) Calcium 8.3 mg/dL L mg/dL (8.5-10.5) C-Reactive Protein 08/27/21 05:31 WBC RBC Hgb Hct MCV MCH MCHC RDW Plt Count MPV Neut % (Auto) Lymph % (Auto) [place] % (Auto) Eos % (Auto) Baso % (Auto) Neut # (Auto) Lymph # (Auto) [place] # (Auto) Eos # (Auto) Baso # (Auto) Nucleated RBC % (a uto) Nucleated RBCs # ESR Sodium Potassium Chloride Carbon Dioxide Anion Gap BUN Creatinine GFR Calculation Glucose Calculated Osmolal ity Calcium C-Reactive Protein 47.6 mg/L H mg/L (0.0-4.9) Discharge Plan Discharge Patient Disposition: Home Clinical Impression: Abscess of thumb, right Condition: Stable Prescriptions: New hydrocodone-acetaminophen 5-325 mg tablet 1 tab PO Q6H PRN (Reason: pain) Qty: 15 RF: 0 No Action aspirin [Adult Low Dose Aspirin] 81 mg tablet,delayed release (DR/EC) 81 mg PO DAILY RF: 0 clopidogrel 75 mg tablet 75 mg PO DAILY Qty: 90 RF: 3 Symbicort 160-4.5 mcg/actuation HFA aerosol inhaler 2 puff INHALATION BID Qty: 18 RF: 3 albuterol sulfate 90 mcg/actuation HFA aerosol inhaler 2 puff INHALATION Q6H PRN (Reason: shortness of breath or wheezing) Qty: 6.7 RF: 2 Discharge Orders: Discharge ED (Routine); Ordered 08/27/21 Ordered By: Garrett Warner Referrals: José Rodriguez MD [Primary Care Provider] - Patient Instructions: Opioid Safety Activity Restrictions/Additional Instructions: You be discharged from the ER. We have given you directions and address for Dr. Rodri Yepez. Proceed directly to his office do not eat or drink until you are seen there. They will will do the incision and drainage at his office. Sign Out Sign Out Data: Patient Sign Out occurred on 08/27/21 at 06:19. Patient's care was discussed, and care was transferred from to Garrett Warner DO. Coding Level of Care Code ED Photoengraving Retoucher for Chg Fwd Exam Comprehensive Documented by User: Garrett Warner DO 08/27/21 09:22 HPI - Extremity Problem General: Chief complaint: Extremity Problem,Nontraumatic Stated complaint: R thumb swelling Time Seen by Provider: 08/27/21 05:23 [facility] ED PFSH: Medical History CAD (coronary artery disease) COPD (chronic obstructive pulmonary disease) Erectile 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 HTN (hypertension) Hyperlipidemia PAD (peripheral artery disease) S/P angiogram of extremity Tobacco abuse Family History Father Diabetes Brother , AGE 60 CAD (coronary artery disease) Myocardial infarction Mother Diabetes Grandfather Diabetes MATERNAL Grandmother Diabetes MATERNAL Social History Alcohol intake: current Alcohol intake frequency: holidays/special occasions only Marital status: service: No 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 He has significant sized abscess on his right thumb which is his dominant hand. We will make arrangements for him to be discharged from here and proceed directly to Dr. Liu's office in [facility]. He will do incision and drainage in the office and arrange for care from there. Lab Data: Labs: Lab Results 08/27/21 08/27/21 08/27/21 05:31 05:31 05:31 WBC 4.6 10^3/uL 10^3/ uL (4.0-10.0) RBC 4.35 10^6/uL 10^6 /uL (4.1-5.3) Hgb 12.7 g/dL g/dL (11.7-16.6) Hct 38.8 % L % (42.0-52.0) MCV 89.2 fl fl (80-94) MCH 29.2 pg pg (28.0-34.0) MCHC 32.7 g/dL g/dL (30.0-36.0) RDW 13.1 % % (12.1-15.1) Plt Count 317 10^3/cmm 10^3 /cmm (130-400) MPV 9.4 fL fL (7.4-10.4) Neut % (Auto) 59.8 % % Lymph % (Auto) 27.8 % % [place] % (Auto) 8.8 % % Eos % (Auto) 2.8 % % Baso % (Auto) 0.6 % % Neut # (Auto) 2.77 10^3/uL 10^3 /uL (1.8-7.7) Lymph # (Auto) 1.3 10^3/uL 10^3/ uL (0.8-4.8) [place] # (Auto) 0.4 10^3/uL 10^3/ uL (0.2-0.9) Eos # (Auto) 0.1 10^3/uL 10^3/ uL (0.0-0.8) Baso # (Auto) 0.0 10^3/uL 10^3/ uL (0.0-0.1) Nucleated RBC % (a uto) 0 % % Nucleated RBCs # 0.0 /100WBC /100W BC ESR 30 mm/hr H mm/hr (0-10) Sodium 140 mmol/L mmol/L (136-145) Potassium 4.2 mmol/L mmol/L (3.5-5.1) Chloride 106 mmol/L mmol/L (98-107) Carbon Dioxide 21 mmol/L L mmol/ L (22-29) Anion Gap 17.2 (5-19) BUN 12 mg/dL mg/dL (8-23) Creatinine 0.7 mg/dL mg/dL (0.7-1.2) GFR Calculation 112.5 mL/min mL/m in (90-130) Glucose 113 mg/dL mg/dL (65-115) Calculated Osmolal ity 291 mOsm/kg mOsm/ kg (285-295) Calcium 8.3 mg/dL L mg/dL (8.5-10.5) C-Reactive Protein 08/27/21 05:31 WBC RBC Hgb Hct MCV MCH MCHC RDW Plt Count MPV Neut % (Auto) Lymph % (Auto) [place] % (Auto) Eos % (Auto) Baso % (Auto) Neut # (Auto) Lymph # (Auto) [place] # (Auto) Eos # (Auto) Baso # (Auto) Nucleated RBC % (a uto) Nucleated RBCs # ESR Sodium Potassium Chloride Carbon Dioxide Anion Gap BUN Creatinine GFR Calculation Glucose Calculated Osmolal ity Calcium C-Reactive Protein 47.6 mg/L H mg/L (0.0-4.9) Discharge Plan Discharge Patient Disposition: Home Clinical Impression: Abscess of thumb, right Condition: Stable Prescriptions: New hydrocodone-acetaminophen 5-325 mg tablet 1 tab PO Q6H PRN (Reason: pain) Qty: 15 RF: 0 No Action aspirin [Adult Low Dose Aspirin] 81 mg tablet,delayed release (DR/EC) 81 mg PO DAILY RF: 0 clopidogrel 75 mg tablet 75 mg PO DAILY Qty: 90 RF: 3 Symbicort 160-4.5 mcg/actuation HFA aerosol inhaler 2 puff INHALATION BID Qty: 18 RF: 3 albuterol sulfate 90 mcg/actuation HFA aerosol inhaler 2 puff INHALATION Q6H PRN (Reason: shortness of breath or wheezing) Qty: 6.7 RF: 2 Discharge Orders: Discharge ED (Routine); Ordered 08/27/21 Ordered By: Garrett Warner Referrals: José Rodriguez MD [Primary Care Provider] - Patient Instructions: Opioid Safety Activity Restrictions/Additional Instructions: You be discharged from the ER. We have given you directions and address for Dr. Rodri Yepez. Proceed directly to his office do not eat or drink until you are seen there. They will will do the incision and drainage at his office. Sign Out Sign Out Data: Patient Sign Out occurred on 08/27/21 at 06:19. Patient's care was discussed, and care was transferred from to Garrett Warner DO. Coding Level of Care Code ED Photoengraving Retoucher for Kvng Fwnir Exam Comprehensive
--- NOTE | 2021-08-27 05:41 | CTR_ITS ---
PROCEDURE INFORMATION: Exam: CT Right Upper Extremity With Contrast, Hand Exam date and time: 08/27/2021 5:41 AM Age: 66 years old Clinical indication: Pain; Swelling; Fingers; Right; Finger(s); Additional info: Thumb swelling TECHNIQUE: Imaging protocol: CT of the Right upper extremity with intravenous contrast was performed. Exam focused on the hand. Radiation optimization: All CT scans at this facility use at least one of these dose optimization techniques: automated exposure control; mA and/or kV adjustment per patient size (includes targeted exams where dose is matched to clinical indication); or iterative reconstruction. Contrast material: OMNI 300; Contrast volume: 95 ml; Contrast route: INTRAVENOUS (IV); COMPARISON: CR ([facility], ) 08/27/2021 5:27 AM RADIATION DOSE METRICS: Total DLP (mGy-cm): 194.96 FINDINGS: Bones/joints: No evidence of periosteal reaction, cortical destruction or focal osteopenia to suggest osteomyelitis. No fracture or dislocation. Soft tissues: In the soft tissues along the inner dorsal aspect of the thumb, at the level of the proximal phalanx diaphysis, there is a rim enhancing fluid collection measuring approximately 1.3 x 0.9 x 1.0 cm, in association with diffuse swelling of the surrounding soft tissues. CT/CT hand RT w con [id number] IMPRESSION: 1. Small subcutaneous abscess along the medial dorsal aspect of the thumb at the level of the proximal phalanx diaphysis, in association with swelling of the surrounding soft tissues. 2. No CT evidence of osteomyelitis.
[2021-08-27] MEDS: vancomycin 1,000 MG in sodium chloride 0.9% 250 ML 250 MG IV (05:42)
[2021-08-27 05:59] LABS: Basophils % 0.6 %; Eosinophils # 0.1 10^3/uL (0.0-0.8); Eosinophils % 2.8 %; Hematocrit 38.8 % (42.0-52.0); Hemoglobin 12.7 g/dL (11.7-16.6); Lymphocytes # 1.3 10^3/uL (0.8-4.8); Lymphocytes % 27.8 %; Mean Corpuscular HGB Conc 32.7 g/dL (30.0-36.0); Mean Corpuscular Hemoglobin 29.2 pg (28.0-34.0); Mean Corpuscular Volume 89.2 fl (80-94); Mean Platelet Volume 9.4 fL (7.4-10.4); Monocytes # 0.4 10^3/uL (0.2-0.9); Monocytes % 8.8 %; Neutrophils # 2.77 10^3/uL (1.8-7.7); Neutrophils % 59.8 %; Nucleated Red Blood Cells % 0 %; Platelet Count 317 10^3/cmm (130-400); Red Blood Count 4.35 10^6/uL (4.1-5.3); Red Cell Distribution Width 13.1 % (12.1-15.1); White Blood Count 4.6 10^3/uL (4.0-10.0)
[2021-08-27 06:19] LABS: Anion Gap 17.2 (5-19); Blood Urea Nitrogen 12 mg/dL (8-23); Calcium 8.3 mg/dL (8.5-10.5); Carbon Dioxide 21 mmol/L (22-29); Chloride 106 mmol/L (98-107); Glomerular Filtration Rate 112.5 mL/min (90-130); Glucose 113 mg/dL (65-115); Osmolality Calculated 291 mOsm/kg (285-295); Potassium 4.2 mmol/L (3.5-5.1); Sodium 140 mmol/L (136-145)
[2021-08-27] MEDS: iohexol 300 mg/mL 100 mL Btl IV (06:41)
[2021-08-27 07:00] VITALS: BP 145/81; PULSE 69; RESP 16; O2SAT 95
[2021-08-27 08:13] VITALS: BP 121/84; PULSE 78; RESP 16; O2SAT 94
[2021-08-27 08:57] VITALS: BP 139/74; PULSE 93; RESP 16; O2SAT 94
[2021-08-27 09:15] LABS: C Reactive Protein 47.6 mg/L (0.0-4.9); Erythrocyte Sedimentation Rate 30 mm/hr (0-10)
[2021-08-27 10:25] VITALS: RESP 16
[2021-08-27] MEDS: morphine 4 mg/mL SDV 1 mL 2 MG IVP (10:25)
--- NOTE | 2021-08-27 10:26 | PC.NURSE ---
2mg morphine admin by IVP Vitaly CALDERA
== END 2021-08-27 10:34 | disposition home or self-care (01) ==
PROVIDERS: Emergency Medicine; Emergency Provider Family Medicine; PCP Internal Medicine
DX: L02.512 Cutaneous abscess of left hand (principal); Z79.02 Long term (current) use of antithrombotics/antiplatelets; Z79.82 Long term (current) use of aspirin; I25.10 Atherosclerotic heart disease of native coronary artery without angina pectoris; J44.9 Chronic obstructive pulmonary disease, unspecified; I10 Essential (primary) hypertension; E78.5 Hyperlipidemia, unspecified
CPT/HCPCS: 73130; 73201; 80048; 85025; 85651; 86140; 96365; 96375; 99284; J2270; J3370; J7050; Q9967

== ENCOUNTER → 2021-09-10 00:01 | Outpatient (BNVA) | payer MEDICARE, SELFPAY | PROVIDERS: PCP Internal Medicine; Visit Provider Orthopaedic Surgery | DX: Z20.822 Contact with and (suspected) exposure to COVID-19 (principal); Z01.812 Encounter for preprocedural laboratory examination | CPT/HCPCS: 87635 ==

== ENCOUNTER 2021-09-13 08:43 | Outpatient (CLI) | payer MEDICARE, SELFPAY ==
--- NOTE | 2021-09-13 08:48 | CT_ITS ---
WS: [id number] INDICATION: Right shoulder pain. Rotator cuff. TECHNIQUE: Noncontrast CT right shoulder FINDINGS: Noncontrast CT right shoulder. Moderate degenerative arthritis AC joint with narrowing of t he subacromial space. Distal clavicle is normal. Moderate to advanced degenerative arthritis glenohum eral joint with hypertrophic spurring about the humeral head and glenoid rim. No acute fractures. Again seen is high-grade complete tears of the supraspinatus and infraspinatus with tendon retraction . Atrophy involving the supraspinatus and infraspinatus. Medial subluxation of the biceps tendon. Aor tic calcification. A few tiny noncalcified nodules in the partially visualized right lung. This can b e followed up with chest CT. Largest measures approximately [address]/CT shoulder RT wo con* [id number] IMPRESSION: 1. Moderate degenerative arthritis AC joint with mild downsloping of the acrom ion. High riding humeral head with complete loss of the subacromial space. 2. Again seen is marked atrophy with high-grade complete tears of the supraspi natus and infraspinatus with tendon retraction. 3. Moderate to advanced degenerative arthritis glenohumeral joint with hypertr ophic spurring. 4. A few tiny 2 to 3 mm noncalcified nodules in the right lung partially visua lized. This can be followed up with chest CT.
== END 2021-09-13 08:44 | disposition home or self-care (01) ==
LOC: RAD 08:45
PROVIDERS: PCP Internal Medicine; Visit Provider Orthopaedic Surgery
DX: M75.101 Unspecified rotator cuff tear or rupture of right shoulder, not specified as traumatic (principal); M19.011 Primary osteoarthritis, right shoulder; R91.8 Other nonspecific abnormal finding of lung field
CPT/HCPCS: 73200

== ENCOUNTER 2021-09-16 15:45 | Observation (INO) | payer MEDICARE, SELFPAY ==
[2021-09-13 10:48] VITALS: BMI 23.0
--- NOTE | 2021-09-13 10:54 | ECG_ITS ---
[facility] Test Date: 2021-09-13 Pat Name: Karthik Gordon Department: Room: Gender: Male [employer]: : 1955 Requested By: Leticia Plummer Order Number: [id number] Reading MD: PABLO MADRIGAL Measurements Intervals [place] Rate: 97 P: 74 MI: 179 QRS: 71 QRSD: 96 T: 73 QT: 351 QTc: 446 Interpretive Statements SINUS RHYTHM POSSIBLE LEFT ATRIAL ENLARGEMENT [-0.1mV P-WAVE IN V1/V2] MODERATE T-WAVE ABNORMALITY, CONSIDER ANTERIOR ISCHEMIA [-0.1+ mV T-WAVE IN V3/V4] Compared to ECG 01/03/2021 10:06:21 T-wave abnormality now present Possible ischemia now present Electronically Signed On 09-13-2021 18:18:29 DESIGN TECHNOLOGY PROFESSOR by PABLO MADRIGAL [id number]
--- NOTE | 2021-09-13 11:11 | ANES.PREANE2 ---
Pre-Anesthetic Assessment Pre-Anesthetic Assessment: Height/Weight: Height 1.8 m Weight 74.843 kg Preop Diagnosis: shoulder pain Proposed Procedure: Operation Date: 09/16/21 12:10 Proposed Procedures p Total Reverse Shoulder Arthroplasty 73578/M75.101(Right) - Ramos Llanes MD Familial anesthetic complications: none Social: Social History: Tobacco and No alcohol Comment: former etoh Exam: Pre-Anes Outpt Exam: alert, oriented x 3, clear to auscultation bilaterally and regular rate & rhythm Airway: MP: 2 Dentition: False Pulmonary: Pulmonary: COPD CV/HEM: CV/HEM: Angina (Stable) (no longer has chest pains), HTN and PVD Comments: Able to walk over a mile 2019 CONCLUSION: 1. Exercise capacity. 2. Heart rate response was appropriate. 3. Blood pressure response was appropriate. 4. Symptoms not suggestive of ischemia. 5. Electrocardiogram portion of the stress test was not suggestive of ischemia. 6. Nuclear scan will be documented separately Metabolic: Metabolic: Hyperlipidemia Anesthetic Plan: ASA status: 2 Anesthesia: General and Regional (specify below) (Interscalene) Risk of > 500 ml blood loss (7ml/kg in children): No PFSH Anesthesia PFSH: Medical History CAD (coronary artery disease) COPD (chronic obstructive pulmonary disease) Erectile 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 HTN (hypertension) Hyperlipidemia PAD (peripheral artery disease) S/P angiogram of extremity Tobacco abuse Family History Father Diabetes Brother , AGE 60 CAD (coronary artery disease) Myocardial infarction Mother Diabetes Grandfather Diabetes MATERNAL Grandmother Diabetes MATERNAL Social History Alcohol intake: current Alcohol intake frequency: holidays/special occasions only Marital status: service: No 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
[2021-09-16] VITALS (18 sets, daily range): BP systolic 112–134; BP diastolic 60–86; PULSE 68–101; RESP 12–18; TEMP 36.2–36.9; O2SAT 90–98; BMI 23.0
[2021-09-16] MEDS: oxyCODONE 20 mg ER (12 HR) Tablet PO (11:13)
[2021-09-16] MEDS: acetaminophen 500 mg Tablet 1000 MG PO ×2 (11:13→18:14)
[2021-09-16] MEDS: gabapentin 300 mg Capsule PO ×2 (11:13→21:00)
[2021-09-16] MEDS: CELEcoxib 200 mg Capsule 400 MG PO (11:13)
[2021-09-16] MEDS: enoxaparin 40 mg/0.4 mL Syringe SUBCUT (11:18)
[2021-09-16] MEDS: sodium chloride 0.9% 1,000 ML 30 ML IV (11:20)
[2021-09-16] MEDS: HYDROmorphone 1 mg/mL INJ 1 mL 0.5 MG IVP (11:55)
--- NOTE | 2021-09-16 12:20 | SUR.PREOP ---
11:55 PATIENT ON MONITOR FOR SAT ,HR,AND PULSE. TIME OUT PERFORMED. IV PAIN MED GIVEN. 12:05 PATIENT TOLERATED NERVE BLOCK PROCEDURE WELL.
[2021-09-16] MEDS: tranexamic acid 1,000 mg/10mL SDV 1000 MG IV (13:00)
[2021-09-16] MEDS: tranexamic acid 1,000 mg/10mL SDV 2000 MG IRRIGATION (13:15)
--- NOTE | 2021-09-16 14:04 | ANES.PREANE2 ---
Pre-Anesthetic Assessment Pre-Anesthetic Assessment: Height/Weight: Height 1.8 m Weight 74.843 kg Temp Pulse Resp BP Pulse Ox 97.4 F L 68 16 134/72 96 09/16/21 10:55 09/16/21 12:09 09/16/21 12:09 09/16/21 12:09 09/16/21 12:09 Preop Diagnosis: Right chronic rotator cuff tear Proposed Procedure: Operation Date: 09/16/21 12:05 Proposed Procedures p Total Reverse Shoulder Arthroplasty 22788/M75.101(Right) - Ramos Llanes MD Was Beta Nichelle taken within 24 hours: N/A Was Clonidine taken within 24 hours: N/A Last intake: Intake Last Liquid Date 09/16/21 Last Liquid Time 08:00 Last Solid Date 09/15/21 Last Solid Time 23:45 Social: Social History: Tobacco and No alcohol Exam: Pre-Anes Outpt Exam: alert, oriented x 3 and regular rate & rhythm Airway: Submandibular: WNL Cervical ROM: WNL MP: 2 Dentition: False Pulmonary: Pulmonary: COPD CV/HEM: CV/HEM: HTN and PVD Comments: anticoagulation Metabolic: Metabolic: Hyperlipidemia Anesthetic Plan: ASA status: 3 Anesthesia: General and Regional (specify below) (right interscalene nerve blk) Risk of > 500 ml blood loss (7ml/kg in children): No Medications/Allergies Current Medications: Current Medications Generic Name Dose Route Start Last Admin Trade Name Freq PRN Reason Stop Dose Admin Hydromorphone HCl 0.5 mg 09/16/21 07:12 09/16/21 11:55 Hydromorphone 1 Mg/Ml Inj 1 Ml IVP 09/17/21 07:12 0.5 mg Q10M PRN Administration Pain level 7-10 P ACU Phase I Sodium Chloride 1,000 mls @ 30 ml s/hr 09/16/21 11:00 09/16/21 11:20 Sodium Chloride 0.9% IV 09/17/21 10:59 30 mls/hr .Q24H HOLLIE Administration PFSH Anesthesia PFSH: Medical History CAD (coronary artery disease) COPD (chronic obstructive pulmonary disease) Erectile 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 HTN (hypertension) Hyperlipidemia PAD (peripheral artery disease) S/P angiogram of extremity Tobacco abuse Family History Father Diabetes Brother , AGE 60 CAD (coronary artery disease) Myocardial infarction Mother Diabetes Grandfather Diabetes MATERNAL Grandmother Diabetes MATERNAL Social History Alcohol intake: current Alcohol intake frequency: holidays/special occasions only Marital status: service: No 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
--- NOTE | 2021-09-16 14:05 | ANES.PROC ---
Anesthesia Procedures Procedure/Date: 09/16/21 Nerve Block ^: Nerve Block 1: Main Anesthesia: general anesthesia Time Out Performed: Yes Consent: requested by attending/covering physician, from patient, risks and benefits reviewed and patient agrees to proceed Nerve block location: interscalene (right) Anesthesia monitors applied: pulse oximetry, EKG, BP cuff and oxygen Nerve block position: semi sitting Anesthetic Used: ropivicaine 0.5% Amount of anesthesia used (mL): 30 Ultrasound used to: recognize landmarks Nerve Stimulator Used?: No Interscalene/Femoral BLK: 2 stimuplex 22 g needle used for position and inplane approach and visualize local anesthetic spread Injection: neg aspiration of heme Patient Tolerated Procedure: well Complications: none
--- NOTE | 2021-09-16 14:53 | PM.OP ---
Operative Report Date of procedure: September 16, 2021 Pre-op Diagnosis: Right chronic rotator cuff tear Post-op diagnosis: same Post-op Findings: Same Procedure Done: Right reverse total shoulder Implants: ) Tornier Aequalis Ascend Flex 7B stem 2) Flex Shoulder System reversed tray +0mm 3) Flex Shoulder System 42 mmreversed insert 4) Aequalis PerFORM Reversed 29 standard baseplate 5) Aequalis perForm Reversed 42 mm standard glenosphere 6) Glenoid screws: central 50 mm, superior 38 mm inferior 38 mm, anterior 22 mm, posterior 18 mm Pathology: none sent Surgeon: Ramos Llanes Anesthesia: General and Nerve Block (Interscalene block) Estimated blood loss (mL): 100 Complications: None Findings: The patient had tearing of his supraspinatus and external rotator musculature. Condition: stable Disposition: PACU Procedure: An intrascalene blocks provided the holding area. The patient was taken to the operating room and given a general anesthesia. They were given 2 g of Ancef. A Reyes stand was covered and use to support support the arm A timeout was performed. A 10 cm long incision was made over the deltopectoral groove and dissection carried out with a scalpel blade to the deltopectoral interval. The cephalic vein was identified and retracted laterally. The biceps was secured with 2 Ethibond sutures to the pectoralis muscle and then divided just proximal with electrocautery. Digital dissection was accomplished to free lesions beneath the deltoid and beneath the coracobrachialis musculature. An Bassem medium tissue protector was used to retract the pectoralis major and the deltoid. Utilizing cautery the subscapularis was released using the remaining biceps stump as a guide anteriorly in full-thickness with the capsule and freed distally at the level of the anterior humeral circumflex vessels. The glenohumeral joint include bending externally rotated and dislocated anteriorly. A freehand cut was made with the saw at the level of the articular cartilage with approximately 30 degrees of retroversion. The proximal humerus was then broached and prepared for a 7B Aequalis Ascend Flex humal stem and covered with a protective plate.. Utilizing electrocautery the glenoid was exposed circumferentially. The centering guide was used to place the central guidepin and the glenoid ream down to sclerotic bone. The bit more bone was taken from the anterior glenoid in accordance with our plan. A 29 mm Tornier Aequalis PerFORM REversed glenoid baseplate was then secured in place with a central 50 mm screw, a superior locking 38 mm screw, an inferior locking 38 mm screw, an anterior 22 mm screw and a posterior 18mm screw. A standard 42 mm Aequalis perFORM ReversedGlenosphere was then placed. A trial reduction with the 42 mmreversed insert provided adequate stability. The final size 7B Aequalis Awscend Flex humal stem was press-fit into place with a 0mm reversed tray. The Flex Shoulder system 42 mm insert was placed and the shoulder reduced with a stable reduction. The subscapularis was secured with the 3 locking ultratape sutures through the tendon that were passed through 4 drill holes from the bicipital groove exiting the greater tuberosity. The sutures were then brought through a 4-hole mini frag plate on the tuberosity and secured which tightly viktor the subscapularis over the lesser tuberosity with the arm held in 30 degrees of external rotation. The sutures were then doubled over in a free needle back through the tendon. The wound was irrigated with a solution of 100 cc of saline with 80 mg of gentamicin. The deltopectoral interval was closed with 0 Vicryl. The subcutaneous tissues were closed with 2-0 Stratafix. The skin was closed with a running 4-0 Stratafix. Sterile dressings were applied. The patient was placed in a sling extubated and taken to recovery room in stable condition. 1
--- NOTE | 2021-09-16 15:09 | XR_ITS ---
WS: [id number] Comparison 08/20/2017. A reverse right shoulder prosthesis is noted. Alignment appears to be satisfactory. Postoperative robbin nges in the adjacent soft tissues. XR/XR shoulder RT min 2V* [id number] IMPRESSION: 1. Reverse right shoulder prosthesis in satisfactory position.
--- NOTE | 2021-09-16 15:30 | ANE.PACU2 ---
Inpatient post-anesthesia follow up: Airway intact: Yes Vital signs: Temperature 97.5 F Pulse Rate 76 Respiratory Rate 18 Blood Pressure 114/71 Pulse Oximetry 98 Oxygen Delivery Me thod Room Air Oxygen Flow Rate Fraction of Inspir ed Oxygen Hydration adequate: Yes Nausea and vomiting: No Pain level: 1 Mental status: Baseline
[2021-09-16] MEDS: sodium chloride 0.9% 1,000 ML 100 ML IV (18:18)
[2021-09-16] MEDS: oxyCODONE 5 mg IR Tab/Cap PO (20:59)
[2021-09-16] MEDS: CELEcoxib 200 mg Capsule PO (21:00)
[2021-09-17] VITALS (8 sets, daily range): BP systolic 109–110; BP diastolic 64–72; PULSE 69–97; RESP 16–19; TEMP 36.7; O2SAT 92–96
[2021-09-17] MEDS: oxyCODONE 5 mg IR Tab/Cap PO ×2 (00:56→05:27)
[2021-09-17] MEDS: acetaminophen 500 mg Tablet 1000 MG PO ×2 (03:40→11:40)
[2021-09-17] MEDS: sodium chloride 0.9% 1,000 ML 100 ML IV (05:29)
[2021-09-17 06:02] LABS: Hemoglobin 10.8 g/dL (11.7-16.6)
--- NOTE | 2021-09-17 07:46 | P.DS_ITS ---
Discharge Providers Date of Admission: 09/16/21 15:45 Date of Discharge: September 17, 2021 Attending Provider at Admission: Ramos Llanes MD Attending Provider at Discharge: Ramos Llanes MD Primary Care Provider: José Rodriguez MD Diagnoses at Discharge Discharge Diagnosis (1) Status post replacement of right shoulder joint: Status: Acute (2) Complete tear of right rotator cuff: Status: Acute Reason for Visit Reason for Visit: N75.101 unsp rotator cuff tear or rupture of right Hospital Course Hospital Course The patient tolerated surgery well. They remained hemodynamically stable. They was begun on aspirin and [] for DVT prophylaxis. As the pain was adequately controlled and they were fully mobile they were discharged home. Physical Exam Narrative: EXAM NARRATIVE: On the day of discharge there is minimal swelling in the dressing was clean and dry. He had trace deltoid and biceps firing due to pain but no distal neurovascular deficits were noted. Discharge Data Data Completed and Pending: Completed Studies During Hospitalization Category Date Time Status XR shoulder RT mi n 2V* [id number] Routin e Exams 09/16/21 15:09 Completed Labs from last 24 hours 09/17/21 05:15 Hgb 10.8 L Vitals: Last Vital Signs Temp 98.5 F 09/16/21 20:51 Pulse 87 09/16/21 20:51 Resp 17 09/17/21 05:27 BP 113/68 09/16/21 20:51 Pulse Ox 92 09/17/21 00:56 Discharge Plan Discharge Patient Disposition: Home Condition: Stable Prescriptions: New oxycodone 5 mg Tablet 5 mg PO Q4H PRN (Reason: Moderate Pain) 7 Days Qty: 40 RF: 0 acetaminophen 500 mg Tablet 1,000 mg PO Q8H 14 Days Qty: 84 RF: 0 celecoxib 200 mg Capsule 200 mg PO Q12H 14 Days Qty: 28 RF: 0 gabapentin 300 mg Capsule 300 mg PO BID@0900,2100 7 Days RF: 0 Continued aspirin [Adult Low Dose Aspirin] 81 mg tablet,delayed release (DR/EC) 81 mg PO DAILY RF: 0 clopidogrel 75 mg tablet 75 mg PO DAILY Qty: 90 RF: 3 Symbicort 160-4.5 mcg/actuation HFA aerosol inhaler 2 puff INHALATION BID Qty: 18 RF: 3 albuterol sulfate 90 mcg/actuation HFA aerosol inhaler 2 puff INHALATION Q6H PRN (Reason: shortness of breath or wheezing) Qty: 6.7 RF: 2 Discharge Orders: Discharge Order (Routine); Ordered 09/17/21 Ordered By: Ramos Llanes Referrals: Ramos Llanes MD [Physician] - 09/20/21 9:10 am Discharge Diet: Advance as tolerated Discharge Activity: Limit activity as instructed Patient Instructions: Opioid Safety Activity Restrictions/Additional Instructions: Okay to shower Leave dressing in place Apply FirstIce up to 20 min/hr for pain and swelling Take Celebrex twice a day for the next 15 days for pain , discontinue other anti-inflammatories Take Neurontin twice a day for 7 days. Take Tylenol 500mg (1-2 tabs) as needed 3 times a day for mild pain take oxycodone for breakthrough pain. Exercises per physical therapy. Leave arm in immobilizer. May move elbow wrist and hand Discharge Attestations Time Spent in Discharge Care*: other Quality Metrics Clinical Quality Measures During this hospital stay, did patient experience: None Coding Level of Care Code Acute [facility] note Diagnoses Status post replacement of right shoulder joint Z96.611 Complete tear of right rotator cuff M75.121
[2021-09-17] MEDS: clopidogrel 75 mg Tablet PO (09:49)
[2021-09-17] MEDS: aspirin 81 mg EC Tablet PO (09:49)
[2021-09-17] MEDS: CELEcoxib 200 mg Capsule PO (09:50)
[2021-09-17] MEDS: oxyCODONE 5 mg IR Tab/Cap 10 MG PO ×2 (09:50→14:05)
[2021-09-17] MEDS: gabapentin 300 mg Capsule PO (09:50)
--- NOTE | 2021-09-18 18:06 | W.PM.OPSUD ---
Surgery/Procedure H&P Update DATE OF PROCEDURE: September 16, 2021 DATE H&P PERFORMED: 08/21/21 H&P UPDATE INFORMATION: I have reviewed H&P completed within last 30 days PREOP DIAGNOSIS: Right chronic rotator cuff tear PLANNED PROCEDURE: Operation Date: 09/16/21 12:05 Proposed Procedures p Total Reverse Shoulder Arthroplasty 04195/M75.101(Right) - Ramos Llanes MD
== END 2021-09-17 14:45 | disposition home or self-care (01) ==
LOC: MEDSURG 15:45
PROVIDERS: Admitting Provider Orthopaedic Surgery; PCP Internal Medicine; Visit Provider Orthopaedic Surgery
PROC: (CPT 23472; principal; 2021-09-16 11:45)
DX: M75.121 Complete rotator cuff tear or rupture of right shoulder, not specified as traumatic (principal); J44.9 Chronic obstructive pulmonary disease, unspecified; I10 Essential (primary) hypertension; E78.5 Hyperlipidemia, unspecified; I25.10 Atherosclerotic heart disease of native coronary artery without angina pectoris; F17.210 Nicotine dependence, cigarettes, uncomplicated; Z82.49 Family history of ischemic heart disease and other diseases of the circulatory system; Z83.3 Family history of diabetes mellitus
CPT/HCPCS: 23472; 36415; 64415; 73030; 76942; 85018; 93005; 94640; 96372; 96374; 97166; C1713; C1776; G0378; J0690; J1100; J1170; J1580; J1650; J2405; J2704; J2710; J2795; J3010; J3490; J7030

== ENCOUNTER 2021-09-19 06:00 | Outpatient (RCR) | payer MEDICARE, SELFPAY | END 2021-09-30 23:59 | disposition home or self-care (01) | LOC: SPT 06:00 | PROVIDERS: PCP Internal Medicine; Referring Provider Orthopaedic Surgery; Visit Provider Orthopaedic Surgery | DX: Z47.89 Encounter for other orthopedic aftercare (principal) | CPT/HCPCS: 97161; 97530 ==

== ENCOUNTER 2021-10-01 06:00 | Outpatient (RCR) | payer MEDICARE, SELFPAY | END 2021-10-28 23:59 | disposition home or self-care (01) | LOC: SPT 06:00 | PROVIDERS: PCP Internal Medicine; Referring Provider Orthopaedic Surgery; Visit Provider Orthopaedic Surgery | DX: Z47.89 Encounter for other orthopedic aftercare (principal) | CPT/HCPCS: 97110; 97140 ==

== ENCOUNTER 2021-10-29 06:00 | Outpatient (RCR) | payer MEDICARE, SELFPAY | END 2021-11-28 23:59 | disposition home or self-care (01) | LOC: SPT 06:00 | PROVIDERS: PCP Internal Medicine; Referring Provider Orthopaedic Surgery; Visit Provider Orthopaedic Surgery | DX: Z47.89 Encounter for other orthopedic aftercare (principal) | CPT/HCPCS: 97110 ==

== ENCOUNTER → 2021-11-05 08:57 | Outpatient (BNVA) | payer MEDICARE, SELFPAY | PROVIDERS: PCP Internal Medicine; Visit Provider Orthopaedic Surgery | DX: Z96.611 Presence of right artificial shoulder joint (principal); M75.121 Complete rotator cuff tear or rupture of right shoulder, not specified as traumatic; M75.91 Shoulder lesion, unspecified, right shoulder | CPT/HCPCS: 73030 ==

== ENCOUNTER 2021-11-29 06:00 | Outpatient (RCR) | payer MEDICARE, SELFPAY | END 2021-12-28 23:59 | disposition home or self-care (01) | LOC: SPT 06:00 | PROVIDERS: PCP Internal Medicine; Referring Provider Orthopaedic Surgery; Visit Provider Orthopaedic Surgery | DX: Z47.89 Encounter for other orthopedic aftercare (principal) | CPT/HCPCS: 97110 ==

== ENCOUNTER 2021-12-29 06:00 | Outpatient (RCR) | payer MEDICARE, SELFPAY | END 2022-01-15 23:59 | disposition home or self-care (01) | LOC: SPT 06:00 | PROVIDERS: PCP Internal Medicine; Referring Provider Orthopaedic Surgery; Visit Provider Orthopaedic Surgery | DX: Z47.89 Encounter for other orthopedic aftercare (principal) | CPT/HCPCS: 97110; 97140 ==

== ENCOUNTER → 2022-01-07 08:50 | Outpatient (BNVA) | payer MEDICARE, SELFPAY | PROVIDERS: PCP Internal Medicine; Visit Provider Orthopaedic Surgery | DX: Z96.611 Presence of right artificial shoulder joint (principal); F17.210 Nicotine dependence, cigarettes, uncomplicated | CPT/HCPCS: 99212 ==

== ENCOUNTER 2022-02-06 02:30 | Emergency (ER) | payer MEDICARE, SELFPAY ==
[2022-02-06 02:35] VITALS: BP 153/83; PULSE 96; RESP 18; TEMP 36.6; O2SAT 97; BMI 20.2
--- NOTE | 2022-02-06 02:43 | W.ED.NECK ---
HPI - Neck Pain/Injury General: Chief Complaint: Neck Pain/Injury Stated Complaint: neck pain Time Seen by Provider: 02/06/22 02:43 History of Present Illness: Mr. Angeles is a 66-year-old gentleman with history of CAD, peripheral disease, hypertension, hyperlipidemia, COPD with continued tobacco use, right shoulder rotator cuff tear with history of right shoulder joint replacement who presents to the emergency room due to back pain. Symptom onset gradual approximately 1 week ago without known specific injury. Denies any particular activity or sleeping different than normal. He has aching which radiates from the neck on the right lateral side to his jaw and down to his shoulder. Intensity symptoms is moderate. Quality is end needles. Course has persisted. He has tried home home medications without significant relief. No other specific changes in health, exacerbating, or alleviating factors identified. Onset (ago): week(s) Severity: moderate Quality: other Duration: constant Relieving factors: none Exacerbating factors: movement of neck Review of Systems General: Reports: 10 or more systems reviewed and unremarkable except in HPI and below PFSH ED PFSH: Medical History CAD (coronary artery disease) COPD (chronic obstructive pulmonary disease) Erectile 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 HTN (hypertension) Hyperlipidemia PAD (peripheral artery disease) S/P angiogram of extremity Tobacco abuse Family History Father Diabetes Brother , AGE 60 CAD (coronary artery disease) Myocardial infarction Mother Diabetes Grandfather Diabetes MATERNAL Grandmother Diabetes MATERNAL Social History Smoking and tobacco status: former smoker Quit status (tobacco): has quit using tobacco Year quit tobacco: 01/07/2022 Alcohol intake: current Alcohol intake frequency: holidays/special occasions only Marital status: service: No 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 Resp: COMMON NORMALS: normal respiratory effort and clear to auscultation bilaterally EFFORT & INSPECTION: Yes able to speak in complete sentences AUSCULTATION: clear to auscultation bilaterally Cardio: COMMON NORMALS: regular rate and regular rhythm RATE: regular rate RHYTHM: regular rhythm GI: COMMON NORMALS: Soft to palpation PALPATION: Yes Soft to palpation and No Tenderness to palpation present (GI) PERCUSSION: normal to percussion Extremity: NARRATIVE EXTREMITY EXAM: TTP at right shoulder joint however no limitation of range motion other than baseline. Distal CMS intact. GENERAL: Yes normal exam except as noted and No edema Neuro: COMMON NORMALS: moves all extremities SENSORIUM/ORIENTATION: Yes alert and No Orientation impaired Psych: COMMON NORMALS: mental status grossly normal and Normal thought process present THOUGHT PROCESS: Normal thought process present Course ED course: - Patient was seen and evaluated by me at bedside -Vital signs obtained - Initial evaluation notable for exam as above. No evidence of meningismus. Airway unremarkable. Appears more musculoskeletal in nature on clinical exam. -Symptom treatment ordered - Imaging notable for no bony abnormality to explain symptoms. Initially read was pending at time of discharge however I did speak to the patient as they came back shortly after proceeding with end notified him of incidental finding with need for CT scan. Patient certainly at risk given smoking history. - Upon serial reexamination after treatment the patient was improved - Based on patient history, evaluation, and testing as interpreted the most likely cause of the patient's condition is musculoskeletal neck pain - The results of ED evaluation were discussed with the patient including prescriptions and/or symptomatic cares (if applicable) including appropriate and responsible use, followup plan, and return precautions. The patient verbalized understanding and felt safe for discharge. - Patient discharged in satisfactory condition. Note: Click bubbles or prepopulated fowler in note writing are used for assistance with data collection and billing and are inherently more limited than narrative and other text portions of this note. Please use narrative for additional clinical history and defer to narrative/free test for any case of contradictory information. If information appears in only free text or click bubble it should be considered present or absent as reported. Please contact note telegraphic typewriter installer for clarifications of clinical information or contradictory information. FUENTES is a brief summary, contradictory or erroneous seeming information should be clarified and full note should be reviewed. Vital Signs: Vital signs: Vital Signs Temperature 97.8 F 02/06/22 04:35 Pulse Rate 86 02/06/22 04:35 Respiratory Rate 18 02/06/22 04:35 Blood Pressure 135/72 02/06/22 04:35 Pulse Oximetry 98 02/06/22 04:35 MDM - Neck Pain/Injury Medical Decision Making 66-year-old gentleman presenting due to 1 week history of neck pain. Physical exam and history consistent with musculoskeletal pain. X-rays with degenerative changes. Incidental finding of lung abnormality discussed with patient including need for CT scan. Satisfactory for outpatient management. Medical Records I reviewed the patient's medical records. Lab Data I reviewed the patient's lab results. Radiology Impressions Cervical Spine X-Ray 02/06/22 02:54 IMPRESSION: 1. No acute fracture or malalignment. 2. Moderate degenerative disc disease at C4-C5, C5-C6 and C6-C7. Chest X-Ray 02/06/22 02:54 IMPRESSION: A 2 cm nodular opacity projects over the mid right lung. Recommend nonemergent chest CT for further evaluation. Discharge Plan Discharge Patient Disposition: Home Clinical Impression: Neck pain Condition: Stable Prescriptions: New oxycodone 5 mg tablet 5 mg PO Q4H PRN (Reason: pain) Qty: 10 0RF methocarbamol 750 mg tablet 750 mg PO TID Qty: 12 0RF No Action aspirin [Adult Low Dose Aspirin] 81 mg tablet,delayed release (DR/EC) 81 mg PO DAILY 0RF Symbicort 160-4.5 mcg/actuation HFA aerosol inhaler 2 puff INHALATION BID Qty: 18 3RF albuterol sulfate 90 mcg/actuation HFA aerosol inhaler 2 puff INHALATION Q6H PRN (Reason: shortness of breath or wheezing) Qty: 6.7 2RF clopidogrel 75 mg tablet 75 mg PO DAILY Qty: 90 3RF Discharge Orders: Discharge ED (Routine); Ordered 02/06/22 Ordered By: Sid Hull Referrals: José Rodriguez MD [Primary Care Provider] - Discharge Diet: Usual diet Discharge Activity: Increase activity as tolerated Patient Instructions: Neck Pain (ED), Opioid Safety Activity Restrictions/Additional Instructions: Thank you for visiting the emergency department. You were seen and evaluated for neck pain. The exact cause of your symptoms is unclear though based on description I believe that this is related to muscle strain and spasm. I will prescribe a muscle relaxer, steroids, and opioid pain control. You may continue to use NSAIDs and Tylenol however please do not exceed the daily recommended dosage and please take a [id number] H2 sirisha or PPI while taking daily NSAIDs. Please follow-up with your primary care provider. Please return to the emergency department for worsening symptoms, any new neurologic deficit, fevers, difficulty with breathing or talking, or anything else that you are concerned about and feel needs emergency department evaluation. Coding Level of Care Code ED Extension Agent for Kvng Smith
--- NOTE | 2022-02-06 02:54 | XRR_ITS ---
PROCEDURE INFORMATION: Exam: XR Cervical Spine Exam date and time: 02/06/2022 2:59 AM Age: 66 years old Clinical indication: Prior surgery; Surgery type: RT shoulder; Patient HX: C/O RT sided neck pain that radiates into occipital causing headache. ; Additional info: R lateral neck pain radiating up TECHNIQUE: Imaging protocol: XR of the cervical spine. Views: 2 or 3 views. COMPARISON: CT Cervical Spine wo* [id number] 02/18/2016 4:09 PM FINDINGS: Bones/joints: No acute fracture or malalignment. Moderate degenerative disc disease at C4-C5, C5-C6 and C6-C7. Soft tissues: Unremarkable. XR/XR cervical spine 3V* [id number] IMPRESSION: 1. No acute fracture or malalignment. 2. Moderate degenerative disc disease at C4-C5, C5-C6 and C6-C7.
--- NOTE | 2022-02-06 02:54 | XRR_ITS ---
PROCEDURE INFORMATION: Exam: XR Chest Exam date and time: 02/06/2022 3:10 AM Age: 66 years old Clinical indication: Cough; Prior surgery; Surgery type: RT shoulder TECHNIQUE: Imaging protocol: XR of the chest. Views: 2 views. COMPARISON: CR XR chest 1V portable [id number] 01/03/2021 8:08 AM FINDINGS: Lungs: A 2 cm nodular opacity projects over the mid right lung. Otherwise, no focal airspace consolidation. Pleural spaces: Unremarkable. No pleural effusion. No pneumothorax. Heart/Mediastinum: Unremarkable. No cardiomegaly. Bones/joints: Right shoulder arthroplasty. XR/XR chest 2V* [id number] IMPRESSION: A 2 cm nodular opacity projects over the mid right lung. Recommend nonemergent chest CT for further evaluation.
[2022-02-06] MEDS: acetaminophen 500 mg Tablet 1000 MG PO (03:18)
[2022-02-06 03:19] VITALS: BP 147/79; PULSE 90; RESP 18; TEMP 36.6; O2SAT 97
[2022-02-06] MEDS: ketorolac 30 mg/mL INJ IM (03:19)
[2022-02-06] MEDS: methocarbamol 750 mg Tablet PO (03:19)
[2022-02-06 04:35] VITALS: BP 135/72; PULSE 86; RESP 18; TEMP 36.6; O2SAT 98
== END 2022-02-06 04:37 | disposition home or self-care (01) ==
PROVIDERS: Emergency Provider Emergency Medicine; PCP Internal Medicine
DX: M50.321 Other cervical disc degeneration at C4-C5 level (principal); R91.1 Solitary pulmonary nodule; Z79.82 Long term (current) use of aspirin; Z79.02 Long term (current) use of antithrombotics/antiplatelets; Z87.891 Personal history of nicotine dependence
CPT/HCPCS: 71046; 72040; 99283; J1885

== ENCOUNTER → 2022-02-19 08:42 | Outpatient (BNVA) | payer MEDICARE, SELFPAY | PROVIDERS: PCP Internal Medicine; Visit Provider Orthopaedic Surgery | DX: Z96.611 Presence of right artificial shoulder joint (principal); M47.812 Spondylosis without myelopathy or radiculopathy, cervical region | CPT/HCPCS: 99213; 99214 ==

== ENCOUNTER 2022-03-04 06:00 | Outpatient (RCR) | payer MEDICARE, SELFPAY | END 2022-03-30 23:59 | disposition home or self-care (01) | LOC: SPT 06:00 | PROVIDERS: PCP Internal Medicine; Referring Provider Orthopaedic Surgery; Visit Provider Orthopaedic Surgery | DX: Z47.1 Aftercare following joint replacement surgery (principal); M54.2 Cervicalgia; Z96.611 Presence of right artificial shoulder joint | CPT/HCPCS: 97161 ==

== ENCOUNTER 2022-06-02 07:20 | Outpatient (CLI) | payer MEDICARE, SELFPAY ==
[2022-06-02 08:08] VITALS: BMI 20.9
--- NOTE | 2022-06-02 08:11 | ECG_ITS ---
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 Interpretive Statements NAME OF STUDY: LEXISCAN SESTAMIBI STRESS TEST INDICATION: [htn, ] Procedure: At the baseline, the blood pressure was 162/89 mmHg with a heart rate of 72 bpm. The electrocardiogram showed normal sinus rhythm, normal axis with normal ST and T's. The Lexiscan was infused over a period of 20 seconds. A total of 0.4 mg of Lexiscan was infused. The stress phase was continued for a total of 5 minutes. Heart rate was at the end of stress phase was 72 bpm and a blood pressure of 148/83 mmHg. The EKG at the peak infusion revealed normal sinus rhythm with no significant ST-T wave changes. Sestamibi was injected 20 seconds after the Lexiscan infusion. Blood pressure at the end of recovery phase was 147/87 mmHg with a heart rate of 71 bpm. Conclusion: 1. Normal EKG response to Lexiscan infusion 2. No Lexiscan induced chest pain or cardiac arrhythmia. 3. Normal blood pressure and heart rate response. 4. Sestamibi/sestamibi perfusion scan pending; see separate report. Electronically Signed On 06-07-2022 21:13:59 CDT by Jd Justice M.D. [id number]
--- NOTE | 2022-06-02 08:12 | NMCV_ITS ---
NM dana perf SPECT r/s* [id number] Karthik Gordon Age: 66 Gender: M : 1955 Exam Date: 06/02/2022 09:12 Ordering Phys: José Rodriguez MD Technologist: SERJIO Hughes Exam Location: [facility] Indications: CHRONIC ISCHEMIC HEART DISEASE STRESS TEST [facility] IMAGE PROTOCOL Rest/Stress 1 Lexiscan Day Radiopharmaceutical Dose (mCi) Administration Site Administered by Rest: Tc-99m 11.0 IV SERJIO Vasquez Sestamibi Stress:Tc-99m 32.7 IV SERJIO Vasquez Sestamibi Rest: 02-Jun-2022 60 Discovery 630 Stress: 02-Jun-2022 30 Discovery 630 0.4mg Lexiscan. Images obtained in supine and prone position. SPECT RESULTS Technical Quality: Excellent Raw Data Analysis: Normal Image Corrections: No attenuation or motion correction applied Summed Stress Score: 0 Summed Rest Score: 6 Summed Difference Score: 0 PERFUSION FINDINGS There is reduced radiotracer uptake in apical, apical septal and apical inferior ramos at the rest images that improves with stress. This is consistent with attenuation artifact. No evidence of ischemia. FUNCTIONAL RESULTS (calculated via Gated SPECT) Stress Image LV EF (%): 53 Stress EDV (mL):128 TID: 1.17 Stress ESV (mL):60 FUNCTIONAL FINDINGS: There is normal left ventricular systolic function. IMPRESSIONS 1. Normal myocardial perfusion imaging with no evidence of ischemia. Attenuation artifact is noted. 2. LV systolic function is normal Jd Justice MD (Electronically Signed) Final Date: 03 June 2022 12:39 S
[2022-06-02] MEDS: regadenoson 0.4 Mg/5 ml Syringe IVP (09:48)
[2022-06-02 09:56] VITALS: BP 147/87; PULSE 72
== END 2022-06-02 07:21 | disposition home or self-care (01) ==
LOC: CDL 07:24
PROVIDERS: PCP Internal Medicine; Visit Provider Internal Medicine
DX: I10 Essential (primary) hypertension (principal); R07.2 Precordial pain; I25.10 Atherosclerotic heart disease of native coronary artery without angina pectoris; I25.9 Chronic ischemic heart disease, unspecified; R06.02 Shortness of breath
CPT/HCPCS: 78452; 93017; A9500; J2785

== ENCOUNTER 2022-08-26 04:05 | Emergency (ER) | payer MEDICARE, SELFPAY ==
[2022-08-26] VITALS (7 sets, daily range): BP systolic 139–170; BP diastolic 62–110; PULSE 68–84; RESP 13–21; TEMP 36.3; O2SAT 92–99; BMI 20.9
--- NOTE | 2022-08-26 04:07 | ECG_ITS ---
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 Measurements Intervals [place] Rate: 84 P: 77 WA: 190 QRS: 73 QRSD: 98 T: 75 QT: 364 QTc: 431 Interpretive Statements SINUS RHYTHM VOLTAGE CRITERIA FOR LVH [MEETS CRITERIA IN ONE OF: R(aVL), S(V1), R(V5), R(V5/V6)+S(V1)] Compared to ECG 09/13/2021 11:01:30 Left ventricular hypertrophy now present T-wave abnormality no longer present Possible ischemia no longer present Electronically Signed On 08-26-2022 14:11:52 SAP ANALYST by Jd Justice M.D. [id number]
--- NOTE | 2022-08-26 04:16 | USR_ITS ---
PROCEDURE INFORMATION: Exam: US Abdomen, Limited; Right Upper Quadrant Exam date and time: 08/26/2022 4:33 AM Age: 67 years old Clinical indication: Abdominal pain; Other: Ruq pain x 2 weeks TECHNIQUE: Imaging protocol: Real time ultrasound of the abdomen with image documentation. Limited exam focused on the right upper quadrant. COMPARISON: CT chest abd pel w con* 02/18/2016 4:23 PM FINDINGS: Liver: Normal. No masses. Gallbladder: There is a non mobile 8.5 mm isoechoic gallstone versus gallbladder wall polyp present. There is no evidence for gallbladder wall thickening or pericholecystic fluid to suggest cholecystitis. A negative sonographic Ibanez sign is elicited. Biliary ducts: Normal. No stones. No dilation. Pancreas: Visualized pancreas is unremarkable. Right kidney: Anechoic cystic masses are seen within the right kidney. The largest measures approximately 2 cm in diameter. Portal venous: Normal hepatopetal blood flow is documented within the main portal vein. US/US gall bladder [id number] IMPRESSION: 1. Non mobile 8.5 mm isoechoic gallstone versus gallbladder wall polyp. There are no findings to suggest cholecystitis. 2. Right renal cysts, the largest measuring 2 cm. No further workup needed.
--- NOTE | 2022-08-26 04:16 | W.ED.CHESTPA ---
Documented by User: Micki Redman MD 08/26/22 04:18 HPI - Chest Pain General: Chief Complaint: Chest Pain Stated Complaint: cp Time Seen by Provider: 08/26/22 04:06 Source: patient Mode of arrival: ambulatory Limitations: no limitations History of Present Illness: 67-year-old male states he been having right upper quadrant abdominal pain along with chest pain over the last 2 weeks. He states has been a constant pain he rates a 5 out of 10 he denies any shortness of breath he denies any fever denies any vomiting or diarrhea denies any worsening improving factors. Rates his pain a 5 out of 10 currently. Associated symptoms: Reports abdominal pain; Deny dyspnea or fever(s) Review of Systems Const: Denies: fever(s), chills, body aches or change in appetite Eyes: Denies: blurry vision or eye discomfort ENMT: Denies: throat pain or dental pain Card: Reports: chest pain Resp: Denies: dyspnea GI: Reports: abdominal pain : Denies: dysuria Musc: Denies: neck pain or back pain Skin/Breast: Denies: rash Neuro: Denies: headache(s) Psych: Denies: depression Regis/Lymph: Denies: easy bruising All/Imm: Denies: urticaria PFSH ED PFSH: Medical History CAD (coronary artery disease) COPD (chronic obstructive pulmonary disease) Erectile 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 HTN (hypertension) Hyperlipidemia PAD (peripheral artery disease) S/P angiogram of extremity Tobacco abuse Family History Father Diabetes Brother , AGE 60 CAD (coronary artery disease) Myocardial infarction Mother Diabetes Grandfather Diabetes MATERNAL Grandmother Diabetes MATERNAL Social History Smoking and tobacco status: current every day smoker Quit status (tobacco): has quit using tobacco Year quit tobacco: 01/07/2022 Alcohol intake: current Alcohol intake frequency: holidays/special occasions only Marital status: service: No 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 occupational 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: 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 Physical Exam Const: COMMON NORMALS: no acute distress, patient oriented x3 and healthy appearing HENMT: COMMON NORMALS: normocephalic and atraumatic HEAD & SCALP: normocephalic and atraumatic Eye: COMMON NORMALS: Equal, round and reactive pupils present and EOMs intact bilaterally PUPIL: Yes Equal, round and reactive pupils present Neck/C-Spine: COMMON NORMALS: full ROM and supple Chest: COMMONS NORMALS: normal inspection of the chest and normal palpation of entire chest wall Resp: COMMON NORMALS: normal respiratory effort, No retractions, No use of accessory muscles and clear to auscultation bilaterally AUSCULTATION: clear to auscultation bilaterally Cardio: COMMON NORMALS: regular rate, regular rhythm and No murmurs present (Cardio) RATE: regular rate RHYTHM: regular rhythm GI: COMMON NORMALS: Normal to inspection, nondistended, normoactive bowel sounds present, Soft to palpation and no masses PALPATION: Yes Soft to palpation and Yes Tenderness to palpation present (GI) Details: RUQ Extremity: COMMON NORMALS: normal to inspection and full ROM Neuro: COMMON NORMALS: patient oriented x3, moves all extremities and no focal motor deficits Psych: COMMON NORMALS: mental status grossly normal, Normal thought process present and cooperative THOUGHT PROCESS: Normal thought process present Skin: COMMON NORMALS: no rashes or lesions noted and no wounds GENERAL SKIN EXAM: no rashes or lesions noted Course Vital Signs: Vital signs: Vital Signs Temperature 97.4 F L 08/26/22 04:15 Pulse Rate 74 08/26/22 07:00 Respiratory Rate 16 08/26/22 07:00 Blood Pressure 159/85 08/26/22 07:00 Pulse Oximetry 94 08/26/22 07:00 Oxygen Delivery Me thod 08/26/22 07:00 MDM - Chest Pain Lab Data 08/26/22 04:17 08/26/22 04:17 Radiology Impressions Gallbladder Ultrasound 08/26/22 04:16 IMPRESSION: 1. Non mobile 8.5 mm isoechoic gallstone versus gallbladder wall polyp. There are no findings to suggest cholecystitis. 2. Right renal cysts, the largest measuring 2 cm. No further workup needed. Chest X-Ray 08/26/22 04:50 IMPRESSION: 1. There is subtle increased attenuation seen in the right mid hemithorax that could represent atelectasis or pneumonia. An underlying enlarging pulmonary nodularity cannot be excluded compared with 02/06/2022. As such, follow-up nonemergent CT examination of the chest is suggested. 2. Mild pleural thickening versus pleural fluid seen in the major fissure on the right. 3. Nodular density seen in the left lower hemithorax measuring approximately 13 mm in diameter likely representing a nipple shadow. 4. Blunting of the left costophrenic recess likely secondary to a tiny left pleural effusion. Laboratory Results WBC 3.7 10^3/uL (4.0-10.0) L 08/26/22 04:17 RBC 4.63 10^6/uL (4.1-5.3) 08/26/22 04:17 Hgb 13.6 g/dL (11.7-16.6) 08/26/22 04:17 Hct 42.1 % (42.0-52.0) 08/26/22 04:17 MCV 90.9 fl (80-94) 08/26/22 04:17 MCH 29.4 pg (28.0-34.0) 08/26/22 04:17 MCHC 32.3 g/dL (30.0-36.0) 08/26/22 04:17 RDW 13.1 % (12.1-15.1) 08/26/22 04:17 Plt Count 257 10^3/cmm (130-400) 08/26/22 04:17 MPV 9.2 fL (7.4-10.4) 08/26/22 04:17 Neut % (Auto) 61.4 % 08/26/22 04:17 Lymph % (Auto) 26.5 % 08/26/22 04:17 [place] % (Auto) 7.8 % 08/26/22 04:17 Eos % (Auto) 3.2 % 08/26/22 04:17 Baso % (Auto) 0.8 % 08/26/22 04:17 Neut # (Auto) 2.29 10^3/uL (1.8-7.7) 08/26/22 04:17 Lymph # (Auto) 1.0 10^3/uL (0.8-4.8) 08/26/22 04:17 [place] # (Auto) 0.3 10^3/uL (0.2-0.9) 08/26/22 04:17 Eos # (Auto) 0.1 10^3/uL (0.0-0.8) 08/26/22 04:17 Baso # (Auto) 0.0 10^3/uL (0.0-0.1) 08/26/22 04:17 Nucleated RBC % (auto) 0 % 08/26/22 04:17 Nucleated RBCs # 0.0 /100WBC 08/26/22 04:17 PT 13.30 SECONDS (12.1-14.9) 08/26/22 04:17 INR 0.98 (0.8-1.2) 08/26/22 04:17 Sodium 137 mmol/L (136-145) 08/26/22 04:17 Potassium 4.0 mmol/L (3.5-5.1) 08/26/22 04:17 Chloride 100 mmol/L (98-107) 08/26/22 04:17 Carbon Dioxide 28 mmol/L (22-29) 08/26/22 04:17 Anion Gap 13.0 (5-19) 08/26/22 04:17 BUN 15 mg/dL (8-23) 08/26/22 04:17 Creatinine 1.0 mg/dL (0.7-1.2) 08/26/22 04:17 GFR Calculation 74.3 mL/min (90-130) L 08/26/22 04:17 Glucose 102 mg/dL (65-115) 08/26/22 04:17 Calculated Osmolality 285 mOsm/kg (285-295) 08/26/22 04:17 Calcium 8.9 mg/dL (8.5-10.5) 08/26/22 04:17 Total Bilirubin 0.7 mg/dL (0.15-1.2) 08/26/22 04:17 AST 14 U/L (0-40) 08/26/22 04:17 ALT 11 U/L (0-41) 08/26/22 04:17 Alkaline Phosphatase 120 U/L (40-130) 08/26/22 04:17 Troponin T Baseline 16 ng/L (0-15) H 08/26/22 04:17 Troponin T 120 Minute 16.38 ng/L (0-15) H 08/26/22 06:06 Delta Troponin T 0.38 ABS# (0-10) 08/26/22 06:06 Total Protein 6.6 g/dL (6.6-8.7) 08/26/22 04:17 Albumin 4.1 g/dL (3.5-5.2) 08/26/22 04:17 Globulin 2.5 g/dL (1.3-4.6) 08/26/22 04:17 Lipase 38 U/L (13-60) 08/26/22 04:17 EKG Data EKG 1: I personally reviewed and interpreted this EKG as follows: EKG interpretation date: 08/26/22 EKG interpretation time: 04:10 Interpretation: nsr hr [address] or t wave abnormalities qrs 98 qtc 405 Discharge Plan Discharge Patient Disposition: Home Clinical Impression: Pneumonia, Biliary colic, Cholelithiasis Condition: Stable Prescriptions: New levofloxacin 750 mg tablet 750 mg PO DAILY 7 Days Qty: 7 0RF albuterol sulfate 90 mcg/actuation HFA aerosol inhaler 2 inh INHALATION Q4H PRN (Reason: shortness of breath or wheezing) Qty: 18 0RF No Action aspirin [Adult Low Dose Aspirin] 81 mg tablet,delayed release (DR/EC) 81 mg PO DAILY Symbicort 160-4.5 mcg/actuation HFA aerosol inhaler 2 puff INHALATION BID Qty: 18 3RF naproxen [Naprosyn] 500 mg tablet 500 mg PO BID Qty: 60 0RF clopidogrel 75 mg tablet 75 mg PO DAILY Qty: 90 3RF albuterol sulfate 90 mcg/actuation HFA aerosol inhaler 2 puff INHALATION Q6H PRN (Reason: shortness of breath or wheezing) Qty: 6.7 5RF oxycodone 5 mg tablet 5 mg PO Q4H PRN (Reason: pain) Qty: 10 0RF methocarbamol 750 mg tablet 750 mg PO TID Qty: 12 0RF Discharge Orders: Discharge ED (Routine); Ordered 08/26/22 Ordered By: Garrett Warner Referrals: José Rodriguez MD [Primary Care Provider] - Discharge Diet: Usual diet Discharge Activity: Resume usual activity Patient Instructions: Abdominal Pain (ED), Opioid Safety, Pain Management Activity Restrictions/Additional Instructions: You were seen today for right upper quadrant abdominal pain and cough. He had biliary colic likely related to a stone or polyp in the gallbladder. He does not require emergent take excision but does require follow-up case management make arrangements to follow-up with general surgery. There is a slight abnormality in your chest x-ray which we suspect is due to infection will begin a course of antibiotics which should have a follow-up chest CT 3 primary care provider. Sign Out Sign Out Data: Patient Sign Out occurred on 08/26/22 at 06:40. Patient's care was discussed, and care was transferred from to Garrett Warner DO. Coding Level of Care Code ED Machine Preservative Filler for Chg Fwd Exam Comprehensive Documented by User: Garrett Warner DO 08/26/22 07:43 HPI - Chest Pain General: Chief Complaint: Chest Pain Stated Complaint: cp Time Seen by Provider: 08/26/22 04:06 PFSH ED PFSH: Medical History CAD (coronary artery disease) COPD (chronic obstructive pulmonary disease) Erectile 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 HTN (hypertension) Hyperlipidemia PAD (peripheral artery disease) S/P angiogram of extremity Tobacco abuse Family History Father Diabetes Brother , AGE 60 CAD (coronary artery disease) Myocardial infarction Mother Diabetes Grandfather Diabetes MATERNAL Grandmother Diabetes MATERNAL Social History Smoking and tobacco status: current every day smoker Quit status (tobacco): has quit using tobacco Year quit tobacco: 01/07/2022 Alcohol intake: current Alcohol intake frequency: holidays/special occasions only Marital status: service: No 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 Redman. His several issues going on his troponin was slightly elevated but his negative troponin is a negative delta he recently had a cardiac stress test which was negative. He has a stone or polyp in the gallbladder but is nonobstructing there is no laboratory changes no sign of obstruction and may be contributing some biliary colic but is not emergent needing excision at this time. We will refer him to general surgery for that. Questionable area on the chest x-ray and he has a productive cough I think it is worthwhile to put him on a round of antibiotic and should follow-up with his primary care doctor for repeat imagingSuch as a follow-up nonemergent CT. Medical Records I reviewed the patient's medical records. Lab Data I reviewed the patient's lab results. 08/26/22 04:17 08/26/22 04:17 Radiology Impressions Gallbladder Ultrasound 08/26/22 04:16 IMPRESSION: 1. Non mobile 8.5 mm isoechoic gallstone versus gallbladder wall polyp. There are no findings to suggest cholecystitis. 2. Right renal cysts, the largest measuring 2 cm. No further workup needed. Chest X-Ray 08/26/22 04:50 IMPRESSION: 1. There is subtle increased attenuation seen in the right mid hemithorax that could represent atelectasis or pneumonia. An underlying enlarging pulmonary nodularity cannot be excluded compared with 02/06/2022. As such, follow-up nonemergent CT examination of the chest is suggested. 2. Mild pleural thickening versus pleural fluid seen in the major fissure on the right. 3. Nodular density seen in the left lower hemithorax measuring approximately 13 mm in diameter likely representing a nipple shadow. 4. Blunting of the left costophrenic recess likely secondary to a tiny left pleural effusion. Laboratory Results WBC 3.7 10^3/uL (4.0-10.0) L 08/26/22 04:17 RBC 4.63 10^6/uL (4.1-5.3) 08/26/22 04:17 Hgb 13.6 g/dL (11.7-16.6) 08/26/22 04:17 Hct 42.1 % (42.0-52.0) 08/26/22 04:17 MCV 90.9 fl (80-94) 08/26/22 04:17 MCH 29.4 pg (28.0-34.0) 08/26/22 04:17 MCHC 32.3 g/dL (30.0-36.0) 08/26/22 04:17 RDW 13.1 % (12.1-15.1) 08/26/22 04:17 Plt Count 257 10^3/cmm (130-400) 08/26/22 04:17 MPV 9.2 fL (7.4-10.4) 08/26/22 04:17 Neut % (Auto) 61.4 % 08/26/22 04:17 Lymph % (Auto) 26.5 % 08/26/22 04:17 [place] % (Auto) 7.8 % 08/26/22 04:17 Eos % (Auto) 3.2 % 08/26/22 04:17 Baso % (Auto) 0.8 % 08/26/22 04:17 Neut # (Auto) 2.29 10^3/uL (1.8-7.7) 08/26/22 04:17 Lymph # (Auto) 1.0 10^3/uL (0.8-4.8) 08/26/22 04:17 [place] # (Auto) 0.3 10^3/uL (0.2-0.9) 08/26/22 04:17 Eos # (Auto) 0.1 10^3/uL (0.0-0.8) 08/26/22 04:17 Baso # (Auto) 0.0 10^3/uL (0.0-0.1) 08/26/22 04:17 Nucleated RBC % (auto) 0 % 08/26/22 04:17 Nucleated RBCs # 0.0 /100WBC 08/26/22 04:17 PT 13.30 SECONDS (12.1-14.9) 08/26/22 04:17 INR 0.98 (0.8-1.2) 08/26/22 04:17 Sodium 137 mmol/L (136-145) 08/26/22 04:17 Potassium 4.0 mmol/L (3.5-5.1) 08/26/22 04:17 Chloride 100 mmol/L (98-107) 08/26/22 04:17 Carbon Dioxide 28 mmol/L (22-29) 08/26/22 04:17 Anion Gap 13.0 (5-19) 08/26/22 04:17 BUN 15 mg/dL (8-23) 08/26/22 04:17 Creatinine 1.0 mg/dL (0.7-1.2) 08/26/22 04:17 GFR Calculation 74.3 mL/min (90-130) L 08/26/22 04:17 Glucose 102 mg/dL (65-115) 08/26/22 04:17 Calculated Osmolality 285 mOsm/kg (285-295) 08/26/22 04:17 Calcium 8.9 mg/dL (8.5-10.5) 08/26/22 04:17 Total Bilirubin 0.7 mg/dL (0.15-1.2) 08/26/22 04:17 AST 14 U/L (0-40) 08/26/22 04:17 ALT 11 U/L (0-41) 08/26/22 04:17 Alkaline Phosphatase 120 U/L (40-130) 08/26/22 04:17 Troponin T Baseline 16 ng/L (0-15) H 08/26/22 04:17 Troponin T 120 Minute 16.38 ng/L (0-15) H 08/26/22 06:06 Delta Troponin T 0.38 ABS# (0-10) 08/26/22 06:06 Total Protein 6.6 g/dL (6.6-8.7) 08/26/22 04:17 Albumin 4.1 g/dL (3.5-5.2) 08/26/22 04:17 Globulin 2.5 g/dL (1.3-4.6) 08/26/22 04:17 Lipase 38 U/L (13-60) 08/26/22 04:17 Discharge Plan Discharge Patient Disposition: Home Clinical Impression: Pneumonia, Biliary colic, Cholelithiasis Condition: Stable Prescriptions: New levofloxacin 750 mg tablet 750 mg PO DAILY 7 Days Qty: 7 0RF albuterol sulfate 90 mcg/actuation HFA aerosol inhaler 2 inh INHALATION Q4H PRN (Reason: shortness of breath or wheezing) Qty: 18 0RF No Action aspirin [Adult Low Dose Aspirin] 81 mg tablet,delayed release (DR/EC) 81 mg PO DAILY Symbicort 160-4.5 mcg/actuation HFA aerosol inhaler 2 puff INHALATION BID Qty: 18 3RF naproxen [Naprosyn] 500 mg tablet 500 mg PO BID Qty: 60 0RF clopidogrel 75 mg tablet 75 mg PO DAILY Qty: 90 3RF albuterol sulfate 90 mcg/actuation HFA aerosol inhaler 2 puff INHALATION Q6H PRN (Reason: shortness of breath or wheezing) Qty: 6.7 5RF oxycodone 5 mg tablet 5 mg PO Q4H PRN (Reason: pain) Qty: 10 0RF methocarbamol 750 mg tablet 750 mg PO TID Qty: 12 0RF Discharge Orders: Discharge ED (Routine); Ordered 08/26/22 Ordered By: Garrett Warner Referrals: José Rodriguez MD [Primary Care Provider] - Discharge Diet: Usual diet Discharge Activity: Resume usual activity Patient Instructions: Abdominal Pain (ED), Opioid Safety, Pain Management Activity Restrictions/Additional Instructions: You were seen today for right upper quadrant abdominal pain and cough. He had biliary colic likely related to a stone or polyp in the gallbladder. He does not require emergent take excision but does require follow-up case management make arrangements to follow-up with general surgery. There is a slight abnormality in your chest x-ray which we suspect is due to infection will begin a course of antibiotics which should have a follow-up chest CT 3 primary care provider. Sign Out Sign Out Data: Patient Sign Out occurred on 08/26/22 at 06:40. Patient's care was discussed, and care was transferred from to Garrett Warner DO. Coding Level of Care Code ED Machine Preservative Filler for Chg Fwd Exam Comprehensive
[2022-08-26 04:36] LABS: Basophils % 0.8 %; Eosinophils # 0.1 10^3/uL (0.0-0.8); Eosinophils % 3.2 %; Hematocrit 42.1 % (42.0-52.0); Hemoglobin 13.6 g/dL (11.7-16.6); Lymphocytes % 26.5 %; Mean Corpuscular HGB Conc 32.3 g/dL (30.0-36.0); Mean Corpuscular Hemoglobin 29.4 pg (28.0-34.0); Mean Corpuscular Volume 90.9 fl (80-94); Mean Platelet Volume 9.2 fL (7.4-10.4); Monocytes # 0.3 10^3/uL (0.2-0.9); Monocytes % 7.8 %; Neutrophils # 2.29 10^3/uL (1.8-7.7); Neutrophils % 61.4 %; Nucleated Red Blood Cells % 0 %; Platelet Count 257 10^3/cmm (130-400); Red Blood Count 4.63 10^6/uL (4.1-5.3); Red Cell Distribution Width 13.1 % (12.1-15.1); White Blood Count 3.7 10^3/uL (4.0-10.0)
[2022-08-26 04:50] LABS: INR 0.98 (0.8-1.2)
--- NOTE | 2022-08-26 04:50 | XRR_ITS ---
PROCEDURE INFORMATION: Exam: XR Chest Exam date and time: 08/26/2022 4:52 AM Age: 67 years old Clinical indication: Chest pressure; Prior surgery; Surgery type: RT shoulder; Patient HX: C/O chest pain. History of copd. ; Additional info: Cp TECHNIQUE: Imaging protocol: Radiologic exam of the chest. Views: 1 view. COMPARISON: CR XR chest 2V* [id number] 02/06/2022 3:10 AM FINDINGS: Lungs: There are patchy opacity seen in the mid right hemithorax, findings that could represent infiltrates and pneumonia. Enlarging pulmonary mass cannot be entirely excluded compared with 02/06/2022. As such, follow-up nonemergent CT examination of the chest is suggested. Pleural spaces: There is mild pleural thickening versus pleural fluid seen in the major fissure on the right. There is blunting of the left costophrenic recess likely secondary to a tiny left pleural effusion. Heart/Mediastinum: Unremarkable. No cardiomegaly. Bones/joints: Status post right shoulder replacement. Soft tissues: The nodularity seen in the left lower hemithorax measuring approximately 13 mm in diameter possibly representing a nipple shadow. XR/XR chest 1V portable [id number] IMPRESSION: 1. There is subtle increased attenuation seen in the right mid hemithorax that could represent atelectasis or pneumonia. An underlying enlarging pulmonary nodularity cannot be excluded compared with 02/06/2022. As such, follow-up nonemergent CT examination of the chest is suggested. 2. Mild pleural thickening versus pleural fluid seen in the major fissure on the right. 3. Nodular density seen in the left lower hemithorax measuring approximately 13 mm in diameter likely representing a nipple shadow. 4. Blunting of the left costophrenic recess likely secondary to a tiny left pleural effusion.
[2022-08-26 05:01] LABS: Troponin(5th) Baseline 16 ng/L (0-15)
[2022-08-26] MEDS: ondansetron 2 mg/ML SDV 2 mL 4 MG IVP (05:01)
[2022-08-26 05:02] LABS: Alanine Aminotransferase 11 U/L (0-41); Albumin Level 4.1 g/dL (3.5-5.2); Alkaline Phosphatase 120 U/L (40-130); Aspartate Amino Transferase 14 U/L (0-40); Blood Urea Nitrogen 15 mg/dL (8-23); Calcium 8.9 mg/dL (8.5-10.5); Carbon Dioxide 28 mmol/L (22-29); Chloride 100 mmol/L (98-107); Globulin 2.5 g/dL (1.3-4.6); Glomerular Filtration Rate 74.3 mL/min (90-130); Glucose 102 mg/dL (65-115); Lipase 38 U/L (13-60); Osmolality Calculated 285 mOsm/kg (285-295); Sodium 137 mmol/L (136-145); Total Bilirubin 0.7 mg/dL (0.15-1.2); Total Protein 6.6 g/dL (6.6-8.7)
[2022-08-26] MEDS: morphine 4 mg/mL SDV 1 mL IVP (05:02)
[2022-08-26] MEDS: hyDRALAzine 20 mg/mL INJ 1 mL 10 MG IVP (05:02)
--- NOTE | 2022-08-26 06:07 | ECG_ITS ---
[facility] Test Date: 2022-08-26 Pat Name: Karthik Gordon Department: Room: Gender: Male Word Processing Operator: : 1955 Requested By: Micki Redman Order Number: [id number] Reading MD: Jd Justice M.D. Measurements Intervals [place] Rate: 76 P: 79 WV: 176 QRS: 74 QRSD: 97 T: 76 QT: 396 QTc: 446 Interpretive Statements SINUS RHYTHM Compared to ECG 09/13/2021 11:01:30 T-wave abnormality no longer present Possible ischemia no longer present Electronically Signed On 08-26-2022 14:13:18 ARMORED CAR GUARD AND DRIVER by Jd Justice M.D. [email or web address] [id number]
[2022-08-26 06:28] LABS: Troponin 5 2HR 16.38 ng/L (0-15); Troponin 5 2HR Delta 0.38 ABS# (0-10)
--- NOTE | 2022-08-26 09:20 | DCPLANNER ---
Addendum entered by Olamide Dodge 10/29/22 07:53: Patient had a follow up appointment scheduled with general surgery - patient did attend appointment Addendum entered by Olamide Dodge 09/03/22 15:22: Patient has a follow up appointment scheduled for Friday, September 16, 2022 at 8:[address] Colon at general surgery. Clinic will call patient with appointment information. Addendum entered by Olamide Dodge 08/27/22 12:34: project manager/design manager had message to speak with patient about scheduling an appointment with his primary care physician. project manager/design manager called phone number [phone], unable to speak with patient at this time. project manager/design manager left a voicemail for patient to return therapeutic case manager phone call. Original Note: project manager/design manager had message to schedule a follow up appointment for patient with general surgery. project manager/design manager sent patients information to the front office staff at general surgery. Patients information will be printed and reviewed. Clinic will call patient with appointment information.
== END 2022-08-26 07:55 | disposition home or self-care (01) ==
PROVIDERS: Emergency Medicine; Emergency Provider Family Medicine; PCP Internal Medicine
DX: K80.20 Calculus of gallbladder without cholecystitis without obstruction (principal); J44.0 Chronic obstructive pulmonary disease with (acute) lower respiratory infection; J18.9 Pneumonia, unspecified organism; Z79.82 Long term (current) use of aspirin; I25.10 Atherosclerotic heart disease of native coronary artery without angina pectoris; I10 Essential (primary) hypertension; E78.5 Hyperlipidemia, unspecified; F17.210 Nicotine dependence, cigarettes, uncomplicated
CPT/HCPCS: 71045; 76705; 80053; 83690; 84484; 85025; 85610; 93005; 96374; 96375; 99285; J0360; J2270; J2405

== ENCOUNTER → 2022-10-07 09:44 | Outpatient (BNVA) | payer MEDICARE, SELFPAY | PROVIDERS: PCP Internal Medicine; Visit Provider Surgery | DX: K40.20 Bilateral inguinal hernia, without obstruction or gangrene, not specified as recurrent (principal); K80.20 Calculus of gallbladder without cholecystitis without obstruction; R19.4 Change in bowel habit | CPT/HCPCS: 99204 ==

== ENCOUNTER 2022-10-21 09:48 | Day surgery (SDC) | payer MEDICARE, SELFPAY ==
[2022-10-20 10:51] VITALS: BMI 20.9
[2022-10-21] VITALS (13 sets, daily range): BP systolic 120–144; BP diastolic 67–81; PULSE 64–75; RESP 12–18; TEMP 36–37.1; O2SAT 92–99
--- NOTE | 2022-10-21 10:41 | ANES.PREANE2 ---
Pre-Anesthetic Assessment Height/Weight: Height 1.83 m Weight 70.307 kg Temp Pulse Resp BP Pulse Ox O2 Del Method 97.4 F L 73 16 144/80 96 10/21/22 10:25 10/21/22 10:25 10/21/22 10:25 10/21/22 10:25 10/21/22 10:25 10/21/22 10:25 Preop Diagnosis: Symptomatic cholelithiasis Operation Date: 10/21/22 12:00 Proposed Procedures p lap claudia [id number],K80.20(Not Applicable) - Dung Colon DO Familial anesthetic complications: None Was Beta Nichelle taken within 24 hours: N/A Was Clonidine taken within 24 hours: N/A Last intake: Intake Last Liquid Date 10/21/22 Last Liquid Time 07:00 Last Solid Date 10/20/22 Last Solid Time 21:00 Social Tobacco and No alcohol Exam alert, oriented x 3, clear to auscultation bilaterally and regular rate & rhythm Airway Mallampati: Class III Dentition: false Pulmonary Chronic Obstructive Pulmonary Disease CV/HEM Coronary Artery Disease and Hypertension Metabolic Hyperlipidemia Anesthetic Plan ASA status: 3 Anesthesia: General Risk of > 500 ml blood loss (7ml/kg in children): No Medications/Allergies Home Medications Medication Instructions Recorded Confirmed Last Taken Type aspirin 81 mg tablet,delayed 81 mg PO DAILY 10/04/19 10/20/22 10/20/22 History release (Adult Low Dose Aspirin) budesonide-formoterol HFA 160 2 puff inhalation BID #18 grams 06/04/21 10/20/22 10/20/22 Rx mcg-4.5 mcg/actuation aerosol inhaler (Symbicort) clopidogrel 75 mg tablet 75 mg PO DAILY #90 tabs 09/19/21 10/20/22 10/20/22 Rx albuterol sulfate 90 mcg/actuation 2 puff inhalation Q6H PRN 05/26/22 10/21/22 10/20/22 Rx aerosol inhaler shortness of breath or wheezing #6.7 grams albuterol sulfate 90 mcg/actuation 2 inh inhalation Q4H PRN shortness 08/26/22 10/21/22 10/20/22 22:00 Rx aerosol inhaler of breath or wheezing #18 grams Allergies Allergy/AdvReac Type Severity Reaction Status Date / Time Penicillins Allergy Unknown ALGY-Swell Verified 10/21/22 10:21 Lip/Tongue/Throat PFSH Anesthesia Medical History CAD (coronary artery disease) COPD (chronic obstructive pulmonary disease) Erectile 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 HTN (hypertension) Hyperlipidemia PAD (peripheral artery disease) S/P angiogram of extremity Tobacco abuse Family History Father Diabetes Brother , AGE 60 CAD (coronary artery disease) Myocardial infarction Mother Diabetes Grandfather Diabetes MATERNAL Grandmother Diabetes MATERNAL Social History Smoking and tobacco status: current every day smoker Quit status (tobacco): has quit using tobacco Year quit tobacco: 01/07/2022 Alcohol intake: current Alcohol intake frequency: holidays/special occasions only Marital status: service: No 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
[2022-10-21] MEDS: sodium chloride 0.9% 1,000 ML 30 ML IV (10:42)
[2022-10-21] MEDS: vancomycin 1,500 MG/300 ML PIGGYBACK 200 MG IV (11:49)
--- NOTE | 2022-10-21 12:23 | W.PM.OPSUD ---
Surgery/Procedure H&P Update DATE OF PROCEDURE: October 21, 2022 DATE H&P PERFORMED: 10/07/22 H&P UPDATE INFORMATION: I have reviewed H&P completed within last 30 days, I have examined patient prior to procedure and No changes to prior documentation PREOP DIAGNOSIS: Symptomatic cholelithiasis PLANNED PROCEDURE: Operation Date: 10/21/22 12:00 Proposed Procedures p lap claudia [id number],K80.20(Not Applicable) - Dung Colon DO
[2022-10-21] MEDS: lidocaine-epi 2% 20 mL INJ INJECTION (12:47)
--- NOTE | 2022-10-21 13:09 | P.OP_ITS ---
Operative Report Date of procedure: October 21, 2022 Pre-op diagnosis: Preop Diagnosis Symptomatic cholelithiasis Post-op diagnosis: same Procedure done: Laparoscopic cholecystectomy Specimens removed/disposition: Gallbladder Surgeon: Dr. Dugn Colon DO Anesthesia: General Estimated blood loss (mL): 5 Complications: None apparent Brief History: This very pleasant 67-year-old gentleman came my office with symptomatic cholelithiasis. Laparoscopic cholecystectomy was indicated. The risk and benefits were explained and documented. Procedure: jett was wheeled into the operative room and placed on the OR table in a supine position. Abdomen was inspected prepped and draped in usual sterile fashion. Time-out was performed and all present were in agreement. A 15 blade scalp was used to make a stab incision in the left upper quadrant and intra- abdominal insufflation was achieved using a Veress needle. After localizing the tissue incisions were made and a 5 millimeter trocar was placed into the umbilicus as well as 2 in the right upper quadrant. A 12 millimeter trocar was placed in the epigastrium. Gallbladder was grasped and elevated. The triangle of Calot was carefully dissected using blunt dissection and electrocautery until the triangle of [place] clearly identified. The cystic duct was clipped proximally and double clipped distally. The duct was then ligated proximally. The cystic artery was doubly clipped and ligated. The gallbladder was then removed from the liver bed using electrocautery. The gallbladder was removed from the abdomen using an Endo-Catch bag through the epigastric incision. The liver bed was inspected and no bleeding was seen. The abdomen was irrigated and suctioned. All ports removed. Skin was washed and dried. Incisions were clos ed with 4-0 Monocryl in a subcuticular interrupted fashion. Skin glue was applied. Patient tolerated the procedure well.
--- NOTE | 2022-10-21 13:43 | PC.NURSE ---
Awake. Oral airway removed approximately 1338
[2022-10-21] MEDS: HYDROcodone-acetaminophen 5-325 mg Tablet 1 TAB PO (14:42)
--- NOTE | 2022-10-21 15:26 | ANE.PACU2 ---
Inpatient post-anesthesia follow up: Airway intact: Yes Vital signs: Temperature 96.8 F Pulse Rate 68 Respiratory Rate 16 Blood Pressure 134/81 Pulse Oximetry 97 Oxygen Delivery Me thod Room Air Oxygen Flow Rate 8 Fraction of Inspir ed Oxygen Hydration adequate: Yes Nausea and vomiting: No Pain level: 1 Mental status: Baseline
== END 2022-10-21 15:10 | disposition home or self-care (01) ==
PROVIDERS: PCP Internal Medicine; Visit Provider Surgery
PROC: 0FT44ZZ Resection of Gallbladder, Percutaneous Endoscopic Approach (ICD-10-PCS; CPT 47562; principal; 2022-10-21 12:00)
DX: K80.10 Calculus of gallbladder with chronic cholecystitis without obstruction (principal); K40.20 Bilateral inguinal hernia, without obstruction or gangrene, not specified as recurrent; J44.9 Chronic obstructive pulmonary disease, unspecified; I25.10 Atherosclerotic heart disease of native coronary artery without angina pectoris; I10 Essential (primary) hypertension; E78.5 Hyperlipidemia, unspecified; Z79.82 Long term (current) use of aspirin; F17.200 Nicotine dependence, unspecified, uncomplicated
CPT/HCPCS: 47562; 88304; J1100; J1170; J2405; J2704; J2710; J3010; J3370; J3490; J7030

== ENCOUNTER → 2022-11-04 12:54 | Outpatient (BNVA) | payer MEDICARE, SELFPAY | PROVIDERS: PCP Internal Medicine; Visit Provider Surgery | DX: Z98.890 Other specified postprocedural states (principal); Z90.49 Acquired absence of other specified parts of digestive tract; R07.2 Precordial pain | CPT/HCPCS: 99024 ==

== ENCOUNTER 2022-11-18 08:10 | Outpatient (CLI) | payer MEDICARE, SELFPAY ==
--- NOTE | 2022-11-18 08:20 | CT_ITS ---
WS: [id number] EXAMINATION: CT chest w con* [id number] REASON FOR EXAM: abnormal chest xray COMPARISON: None available. ORDER DATE: 11/18/2022 8:24 AM TECHNIQUE: 1.25 mm post IV contrast utilizing 95 mL of Omnipaque [address] images of the ches t with sagittal and coronal reformations and MIP reformations. DLP: 234.89 mGy.cm FINDINGS: No thoracic aorta aneurysmal dilatation. Thoracic aorta and great vessel moderate right and left coronary artery calcifications noted. Lungs are hyperexpanded with diaphragm flattening. Bilateral posterior lung postural atelectatic changes. Bilateral scattered calcified pulmonary nodules. There is a new pleural-based somewhat irreg ular outline pulmonary mass with central hypodensity and small gas bubble probably due to necrosis me asuring 38.5 x 39 x 42 mm in diameter with pleural thickening. This is crossing the major fissure and is partly in each of the right upper and lower lobes. Medial middle lobe focal centrilobular groundg lass nodules. Medial left upper lobe subpleural 4.6 mm non calcified nodule unchanged from previous. No acute interstitial opacities. Mild biapical interstitial scarring. No pleural effusion or pneumoth orax. No central airway narrowing or intraluminal filling defect. Right tracheoesophageal groove, and left infrahilar calcified lymph nodes. No axillary, hilar, or mediastinal enlarged lymph node or mass. Heart size is unremarkable. No pericardial thickening or effusion. Esophagus and gastroesophageal junction unremarkable. Included thyroid gland not enlarged. Multilevel mid thoracic spine superior endplate compression deformities unchanged. No acute fracture seen. No osteolytic or osteoblastic change. Liver is unremarkable. Splenic calcified granulomas, otherwise the spleen is unremarkable. Previous c holecystectomy Bilateral renal cysts all of which have increased slightly in size compared with previ ous. Pancreas is unremarkable. CT/CT chest w con* [id number] IMPRESSION: 1. Necrotic appearing 38.5 x 39 x 42 mm pleural-based pulmonary mass in the rig ht upper and lower lower lobes is either primary or metastatic lesion 2. Bilateral non specific, non calcified subcentimeter pulmonary nodules in the right middle lobe stable. 3. Chronic emphysema.
[2022-11-18 08:58] LABS: Blood Urea Nitrogen 21 mg/dL (8-23); Glomerular Filtration Rate 66.6 mL/min (90-130)
[2022-11-18] MEDS: iohexol 350 mg/mL 500 mL Btl (per mL) IV (09:22)
== END 2022-11-18 08:11 | disposition home or self-care (01) ==
LOC: RAD 08:13
PROVIDERS: PCP Internal Medicine; Visit Provider Surgery
DX: R91.8 Other nonspecific abnormal finding of lung field (principal); J43.9 Emphysema, unspecified
CPT/HCPCS: 36415; 71260; 82565; 84520; Q9967

== ENCOUNTER → 2022-11-25 08:02 | Outpatient (BNVA) | payer MEDICARE, SELFPAY | PROVIDERS: PCP Internal Medicine; Visit Provider Surgery | DX: R91.8 Other nonspecific abnormal finding of lung field (principal) | CPT/HCPCS: 99213 ==

== ENCOUNTER → 2022-12-02 14:31 | Outpatient (BNVA) | payer MEDICARE, SELFPAY | PROVIDERS: PCP Family Medicine; Visit Provider Family Medicine | DX: R91.8 Other nonspecific abnormal finding of lung field (principal) | CPT/HCPCS: 80053 ==

== ENCOUNTER → 2022-12-09 15:24 | Outpatient (BNVA) | payer MEDICARE, SELFPAY | PROVIDERS: PCP Family Medicine; Visit Provider Internal Medicine Pulmonary Disease | DX: R91.8 Other nonspecific abnormal finding of lung field (principal); J44.9 Chronic obstructive pulmonary disease, unspecified; F17.210 Nicotine dependence, cigarettes, uncomplicated | CPT/HCPCS: 99204 ==

== ENCOUNTER 2022-12-13 11:39 | Inpatient (IN) | payer MEDICARE, SELFPAY ==
[2022-12-13] VITALS (7 sets, daily range): BP systolic 104–132; BP diastolic 72–81; PULSE 88–106; RESP 12–18; TEMP 36.3–36.4; O2SAT 92–97; BMI 20.5; BMI 19.7
--- NOTE | 2022-12-13 11:59 | XRR_ITS ---
PROCEDURE INFORMATION: Exam: XR Abdomen Exam date and time: 12/13/2022 12:14 PM Age: 67 years old Clinical indication: Constipation TECHNIQUE: Imaging protocol: Radiologic exam of the abdomen. Views: Frontal supine view of the abdomen. 1 View. COMPARISON: CT chest abdpel w/*[id number] 02/18/2016 4:23 PM FINDINGS: Gastrointestinal tract: There are air-filled nondilated small bowel loops. Colonic constipation is present. Organs: The gallbladder has been removed. Bones/joints: There are degenerative changes in the visualized spine. XR/XR KUB portable [id number] IMPRESSION: Colonic constipation is present.
--- NOTE | 2022-12-13 12:03 | XRR_ITS ---
PROCEDURE INFORMATION: Exam: XR Chest Exam date and time: 12/13/2022 12:18 PM Age: 67 years old Clinical indication: Shortness of breath; TECHNIQUE: Imaging protocol: Radiologic exam of the chest. Views: 2 views. COMPARISON: CT chest w con* [id number] 11/18/2022 9:12 AM FINDINGS: Lungs: There is ill-defined increased density at the posterior aspect of the right mid lung field. This is more optimally visualized on the prior CT scan. COPD morphology of the chest. Pleural spaces: Unremarkable. No pleural effusion. No pneumothorax. Heart/Mediastinum: Unremarkable. No cardiomegaly. Bones/joints: Right reverse shoulder replacement. There is ossification in the adjacent soft tissues similar to the prior CT scan. Chronic compression deformity of the T5 superior endplate was seen on the prior CT scan as well. XR/XR chest 2V* [id number] IMPRESSION: 1. Ill-defined increased density at the posterior aspect of the right mid lung field. A mass was seen in this location on the prior CT scan. Please see that report. 2. COPD morphology of the chest.
--- NOTE | 2022-12-13 12:05 | ED_ITS ---
HPI - GI Bleed General: Chief complaint: GI Bleed Stated complaint: BLOOD IN STOOL AND URINE Time Seen by Provider: 12/13/22 11:44 History of Present Illness: Patient comes in with right upper quadrant/right lower chest pain. States that he was diagnosed with cancer a week ago but does not know what kind it is. States he has been constipated for a week and last night had a lot of significant pain in his right upper quadrant. States he was pacing around the house all night long. States he finally had a large bowel movement which was dark tarry colored. Denies fever, new cough, or congestion. Denies any vomiting. Associated symptoms: Reports abdominal pain; Denies fever(s), headache(s), nausea, rash or vomiting Review of Systems Const: Denies: fever(s) or body aches Eyes: Denies: change in vision or blurry vision ENMT: Denies: throat pain or odynophagia Card: Reports: chest pain; Denies: palpitations Resp: Reports: dyspnea; Denies: productive cough GI: Reports: abdominal pain, diarrhea and melena; Denies: nausea or vomiting : Denies: flank pain or dysuria Musc: Denies: neck pain or back pain Skin/Breast: Denies: rash or pruritus Neuro: Denies: headache(s) or numbness in extremities Psych: Denies: anxiety or change in appetite Endo: Denies: polyuria or excessive sweating PFSH ED PFSH: Medical History CAD (coronary artery disease) COPD (chronic obstructive pulmonary disease) Erectile 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 HTN (hypertension) Hyperlipidemia PAD (peripheral artery disease) Tobacco abuse Surgical History History of angioplasty of peripheral vessel History of chest tube placement History of laparoscopic cholecystectomy History of right shoulder replacement Status post peripheral artery angioplasty with insertion of stent Family History Father Diabetes Brother , AGE 60 CAD (coronary artery disease) Myocardial infarction Mother Diabetes Grandfather Diabetes MATERNAL Grandmother Diabetes MATERNAL Social History Smoking and tobacco status: current every day smoker cigarettes Quit status (tobacco): quit date established Planned quit date: 12/02/22 Alcohol intake: former Household members: none Marital status: Number of children: 1 service: No 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 kings needs: No Physical Exam Const: COMMON NORMALS: patient oriented x3 and alert OTHER: Patient is cachectic and ill-appearing HENMT: COMMON NORMALS: normocephalic and atraumatic HEAD & SCALP: normocephalic and atraumatic OTHER: Dry mucous membranes Eye: COMMON NORMALS: Equal, round and reactive pupils present and EOMs intact bilaterally PUPIL: Yes Equal, round and reactive pupils present Neck/C-Spine: COMMON NORMALS: full ROM and supple Resp: COMMON NORMALS: normal respiratory effort, No retractions and No use of accessory muscles Cardio: COMMON NORMALS: regular rhythm RHYTHM: regular rhythm OTHER: Tachycardia GI: COMMON NORMALS: Soft to palpation PALPATION: Yes Soft to palpation : OTHER: Right upper quadrant tenderness to palpation Extremity: COMMON NORMALS: normal to inspection and full ROM Neuro: COMMON NORMALS: patient oriented x3 SENSORIUM/ORIENTATION: Yes alert Psych: COMMON NORMALS: mental status grossly normal and cooperative Skin: COMMON NORMALS: no rashes or lesions noted and no wounds GENERAL SKIN EXAM: no rashes or lesions noted Course Vital Signs: Vital signs: Vital Signs Temperature 97.6 F 12/13/22 11:40 Pulse Rate 106 H 12/13/22 11:40 Respiratory Rate 14 12/13/22 17:21 Blood Pressure 104/77 12/13/22 11:40 Pulse Oximetry 96 12/13/22 17:21 Oxygen Delivery Me thod Room Air 12/13/22 11:40 MDM - GI Bleed Medical Decision Making Patient comes in with right upper quadrant/right lower chest pain. States that he was diagnosed with cancer a week ago but does not know what kind it is. States he has been constipated for a week and last night had a lot of sig nificant pain in his right upper quadrant. States he was pacing around the house all night long. States he finally had a large bowel movement which was dark tarry colored. Denies fever, new cough, or congestion. Denies any vomiting. On physical exam he has mild right upper quadrant abdominal te nderness to palpation. Review of the patient's old chart shows he was diagnosed with a mass in his right lower and right upper lung a week ago via CT scan. This mass is concerning for cancer either primary or metastatic. He was referred to oncology and is being scheduled for a biopsy and PET scan. We will check labs, give IV fluids, check x-ray, treat pain with IV Dilaudid, and reassess. On reassessment I talked to the patient about the test results. He had a second bloody bowel movement here in the emergency department. His second hemoglobin was 8.6, where his first was 8.8. Will hold on platelets at this time as his hemoglobin is stable. I discussed the case with the hospitalist and we will check a CT of his abdomen and admit for further work-up and treatment of his GI bleed. Lab Data 12/13/22 17:28 12/13/22 14:33 Radiology Impressions KUB X-Ray 12/13/22 11:59 IMPRESSION: Colonic constipation is present. Chest X-Ray 12/13/22 12:03 IMPRESSION: 1. Ill-defined increased density at the posterior aspect of the right mid lung field. A mass was seen in this location on the prior CT scan. Please see that report. 2. COPD morphology of the chest. Laboratory Results WBC 6.6 10^3/uL (4.0-10.0) 12/13/22 17: RBC 2.97 10^6/uL (4.1-5.3) L 12/13/22: Hgb 8.6 g/dL (11.7-16.6) L 12/13/22: Hct 27.7 % (42.0-52.0) L 12/13/22: MCV 93.3 fl (80-94) 12/13/22 17: MCH 29.0 pg (28.0-34.0) 12/13/22: MCHC 31.0 g/dL (30.0-36.0) 12/13/22: RDW 13.7 % (12.1-15.1) 12/13/22: Plt Count 367 10^3/cmm (130-400) 12/13/22: MPV 9.3 fL (7.4-10.4) 12/13/22: Neut % (Auto) 77.3 % 12/13/22 17: Lymph % (Auto) 16.5 % 12/13/22 17: Swift % (Auto) 5.2 % 12/13/22 17: Eos % (Auto) 0.3 % 12/13/22 17: Baso % (Auto) 0.5 % 12/13/22 17: Neut # (Auto) 5.11 10^3/uL (1.8-7.7) 12/13/22 17: Lymph # (Auto) 1.1 10^3/uL (0.8-4.8) 12/13/22 17: Swift # (Auto) 0.3 10^3/uL (0.2-0.9) 12/13/22: Eos # (Auto) 0.0 10^3/uL (0.0-0.8) 12/13/22: Baso # (Auto) 0.0 10^3/uL (0.0-0.1) 12/13/22 17: Nucleated RBC % (auto) 0 % 12/13/22: Nucleated RBCs # 0.0 /100WBC 12/13/22 17: Sodium 136 mmol/L (136-145) 12/13/22 14:33 Potassium 4.4 mmol/L (3.5-5.1) 12/13/22 14:33 Chloride 108 mmol/L (98-107) H 12/13/22 14:33 Carbon Dioxide 19 mmol/L (22-29) L 12/13/22 14:33 Anion Gap 13.4 (5-19) 12/13/22 14:33 BUN 54 mg/dL (8-23) H 12/13/22 14:33 Creatinine 0.7 mg/dL (0.7-1.2) 12/13/22 14:33 GFR Calculation 112.1 mL/min (90-130) 12/13/22 14:33 Glucose 97 mg/dL (65-115) 12/13/22 14:33 Calculated Osmolality 297 mOsm/kg (285-295) H 12/13/22 14:33 Calcium 7.9 mg/dL (8.5-10.5) L 12/13/22 14:33 Total Bilirubin 0.6 mg/dL (0.15-1.2) 12/13/22 14:33 AST 10 U/L (0-40) 12/13/22 14:33 ALT 9 U/L (0-41) 12/13/22 14:33 Alkaline Phosphatase 80 U/L (40-130) 12/13/22 14:33 Total Protein 5.6 g/dL (6.6-8.7) L 12/13/22 14:33 Albumin 3.3 g/dL (3.5-5.2) L 12/13/22 14:33 Globulin 2.3 g/dL (1.3-4.6) 12/13/22 14:33 Discharge Plan Discharge Patient Disposition: Admitted As Inpatient Clinical Impression: GI (gastrointestinal bleed) Condition: Stable Coding Level of Care Code ED Telecommunication Operator for Kvng Smith
[2022-12-13] MEDS: HYDROmorphone 1 mg/mL INJ 1 mL 0.5 MG IVP ×2 (12:57→17:21)
[2022-12-13] MEDS: sodium chloride 0.9% 1,000 ML 999 ML IV (12:57)
[2022-12-13 14:42] LABS: Basophils % 0.4 %; Eosinophils % 0.1 %; Hematocrit 27.5 % (42.0-52.0); Hemoglobin 8.8 g/dL (11.7-16.6); Lymphocytes # 1.1 10^3/uL (0.8-4.8); Lymphocytes % 15.2 %; Mean Corpuscular Hemoglobin 28.8 pg (28.0-34.0); Mean Corpuscular Volume 89.9 fl (80-94); Mean Platelet Volume 9.1 fL (7.4-10.4); Monocytes # 0.3 10^3/uL (0.2-0.9); Monocytes % 4.8 %; Neutrophils # 5.47 10^3/uL (1.8-7.7); Neutrophils % 79.1 %; Nucleated Red Blood Cells % 0 %; Platelet Count 345 10^3/cmm (130-400); Red Blood Count 3.06 10^6/uL (4.1-5.3); Red Cell Distribution Width 13.5 % (12.1-15.1); White Blood Count 6.9 10^3/uL (4.0-10.0)
[2022-12-13 14:59] LABS: Alanine Aminotransferase 9 U/L (0-41); Albumin Level 3.3 g/dL (3.5-5.2); Alkaline Phosphatase 80 U/L (40-130); Anion Gap 13.4 (5-19); Aspartate Amino Transferase 10 U/L (0-40); Blood Urea Nitrogen 54 mg/dL (8-23); Calcium 7.9 mg/dL (8.5-10.5); Carbon Dioxide 19 mmol/L (22-29); Chloride 108 mmol/L (98-107); Globulin 2.3 g/dL (1.3-4.6); Glomerular Filtration Rate 112.1 mL/min (90-130); Glucose 97 mg/dL (65-115); Osmolality Calculated 297 mOsm/kg (285-295); Potassium 4.4 mmol/L (3.5-5.1); Sodium 136 mmol/L (136-145); Total Bilirubin 0.6 mg/dL (0.15-1.2); Total Protein 5.6 g/dL (6.6-8.7)
--- NOTE | 2022-12-13 16:55 | PC.NURSE ---
MIDLINE placed, ready for use. Primary nurse notified. Dr. Koroma gave order that line can be used for blood draws.
[2022-12-13 17:32] LABS: Basophils % 0.5 %; Eosinophils % 0.3 %; Hematocrit 27.7 % (42.0-52.0); Hemoglobin 8.6 g/dL (11.7-16.6); Lymphocytes # 1.1 10^3/uL (0.8-4.8); Lymphocytes % 16.5 %; Mean Corpuscular Volume 93.3 fl (80-94); Mean Platelet Volume 9.3 fL (7.4-10.4); Monocytes # 0.3 10^3/uL (0.2-0.9); Monocytes % 5.2 %; Neutrophils # 5.11 10^3/uL (1.8-7.7); Neutrophils % 77.3 %; Nucleated Red Blood Cells % 0 %; Platelet Count 367 10^3/cmm (130-400); Red Blood Count 2.97 10^6/uL (4.1-5.3); Red Cell Distribution Width 13.7 % (12.1-15.1); White Blood Count 6.6 10^3/uL (4.0-10.0)
--- NOTE | 2022-12-13 17:49 | CTR_ITS ---
PROCEDURE INFORMATION: Exam: CT Abdomen And Pelvis With Contrast Exam date and time: 12/13/2022 5:59 PM Age: 67 years old Clinical indication: Abdominal pain; Localized; Right upper quadrant (ruq); Additional info: Abd pain TECHNIQUE: Imaging protocol: Computed tomography of the abdomen and pelvis with contrast. Radiation optimization: All CT scans at this facility use at least one of these dose optimization techniques: automated exposure control; mA and/or kV adjustment per patient size (includes targeted exams where dose is matched to clinical indication); or iterative reconstruction. Contrast material: OMNI 350; Contrast volume: 100 ml; Contrast route: INTRAVENOUS (IV); REPORTING DATA: Count of CT and Cardiac NM exams in prior 12 months: This patient has received 2 known CTs and 0 known cardiac nuclear medicine studies in the 12 months prior to the current study. COMPARISON: CR (ABDOMEN, ) 12/13/2022 12:14 PM RADIATION DOSE METRICS: Total DLP (mGy-cm): 381.17 FINDINGS: Liver: Normal. No mass. Gallbladder and bile ducts: The gallbladder has been removed. Pancreas: Normal. No ductal dilation. Spleen: Normal. No splenomegaly. Adrenal glands: Normal. No mass. Kidneys and ureters: There are cysts with benign features in the kidneys larger of which measures 3.9 cm at the upper pole the left kidney. Follow-up is not necessary for these lesions. Stomach and bowel: There are air-fluid levels in multiple dilated mid to distal small bowel loops. Distal ileum is of normal caliber. Air and stool is scattered throughout the colon and present in the rectal vault. Appendix: No evidence of appendicitis. Intraperitoneal space: Unremarkable. No free air. No significant fluid collection. Vasculature: Multi-vessel atherosclerotic disease. Lymph nodes: Unremarkable. No enlarged lymph nodes. Urinary bladder: Unremarkable as visualized. Reproductive: Unremarkable as visualized. Bones/joints: Degenerative changes are present in the visualized spine. There are lower lumbar broad-based disc osteophyte complexes. Soft tissues: Unremarkable. CT/CT abdomen pelvis w con* [id number] IMPRESSION: Findings as stated above are consistent with an early or partial distal small-bowel obstruction.
--- NOTE | 2022-12-13 18:04 | P.HP_ITS ---
Providers/Chief Complaint Primary Care Provider: Liya Huerta MD Chief Complaint: BLOOD IN STOOL AND URINE History of Present Illness Karthik Gordon is a 67 year old male with past medical history of hypertension, PAD (right superficial femoral artery in-stent restenosis status post [employer]), recently diagnosed rising pleural-based lung mass highly suspicious for malignancy, being worked up as outpatient for tissue diagnosis, came in today with chief complaint of right upper quadrant/right lower chest pain, according to the patient he has been constipated for about a week time, last night, he was having significant abdominal discomfort, followed by large bowel movement which was, dark tarry, came to to the ER today for the evaluation of the same, the ER he had another large bowel movement which was, dark and tarry. So far he had 4 dark tarry bowel movements since last night. Has denied any nausea vomiting, fever cough. CT abdomen and pelvis has shown: X-ray chest:?Ill-defined increased density at the posterior aspect of the right mid lung field. Labs WBC 6.6, H&H 8.6 27.7,PLT: 367 , serum sodium 136 serum potassium 4.4, BUN 54, serum creatinine 0.7, Review of Systems General: Reports: 10 or more systems reviewed and unremarkable except in HPI and below Const: Denies: fever(s), chills, body aches, change in appetite or diaphoresis Card: Denies: palpitations, edema, swelling of feet/ankles, dyspnea on exertion, orthopnea or leg pain with exertion Resp: Denies: dyspnea, productive cough, wheezing or pain on inspiration GI: Reports: abdominal pain and constipation; Denies: nausea, vomiting or diarrhea : Denies: flank pain or difficulty urinating Musc: Denies: back pain, extremity pain or extremity swelling Neuro: Denies: headache(s), difficulty walking or confusion Medications/Allergies Home Medications Medication Instructions Recorded Confirmed Last Taken Type aspirin 81 mg tablet,delayed 81 mg PO DAILY 10/04/19 12/13/22 12/12/22 History release (Adult Low Dose Aspirin) budesonide-formoterol HFA 160 2 puff inhalation BID #18 grams 06/04/21 12/13/22 12/12/22 Rx mcg-4.5 mcg/actuation aerosol inhaler (Symbicort) clopidogrel 75 mg tablet 75 mg PO DAILY #90 tabs 09/19/21 12/13/22 12/12/22 Rx albuterol sulfate 90 mcg/actuation 2 puff inhalation Q6H PRN 05/26/22 12/13/22 10/20/22 Rx aerosol inhaler shortness of breath or wheezing #6.7 grams hydrocodone 5 mg-acetaminophen 325 1 tab PO Q6H PRN pain 2 weeks #60 12/02/22 12/13/22 12/12/22 Rx mg tablet tabs Allergies Allergy/AdvReac Type Severity Reaction Status Date / Time Penicillins Allergy Unknown ALGY-Swell Verified 12/09/22 15:42 Lip/Tongue/Throat PFSH Acute PFSH: Medical History CAD (coronary artery disease) COPD (chronic obstructive pulmonary disease) Erectile 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 HTN (hypertension) Hyperlipidemia PAD (peripheral artery disease) Tobacco abuse Surgical History History of angioplasty of peripheral vessel History of chest tube placement History of laparoscopic cholecystectomy History of right shoulder replacement Status post peripheral artery angioplasty with insertion of stent Family History Father Diabetes Brother , AGE 60 CAD (coronary artery disease) Myocardial infarction Mother Diabetes Grandfather Diabetes MATERNAL Grandmother Diabetes MATERNAL Social History Smoking and tobacco status: current every day smoker cigarettes Quit status (tobacco): quit date established Planned quit date: 12/02/22 Alcohol intake: former Household members: none Marital status: Number of children: 1 service: No 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 kings needs: No Vitals/I&O/Wt Last Vital Signs Temp 97.6 F 12/13/22 11:40 Pulse 106 H 12/13/22 11:40 Resp 14 12/13/22 17:21 BP 104/77 12/13/22 11:40 Pulse Ox 96 12/13/22 17:21 O2 Del Method Room Air 12/13/22 11:40 Weight last 48 hrs Weight 68.492 kg Physical Exam Const: COMMON NORMALS: patient oriented x3 HENMT: COMMON NORMALS: normocephalic and atraumatic HEAD & SCALP: normocephalic and atraumatic Resp: COMMON NORMALS: clear to auscultation bilaterally EFFORT & INSPECTI ON: Yes symmetric chest movement AUSCULTATION: clear to auscultation bilaterally Cardio: COMMON NORMALS: regular rate, regular rhythm, S1 normal heart sound present, S2 normal heart sound present, No gallops present (Cardio), No murmurs present (Cardio), No rub (Cardio) and Peripheral pulses 2+ throughout RATE: regular rate RHYTHM: regular rhythm HEART SOUNDS: S1 normal heart sound present and S2 normal heart sound present PERIPHERAL PULSES: Peripheral pulses 2+ throughout GI: COMMON NORMALS: Normal to inspection, nondistended, normoactive bowel sounds present AUSCULTATION: Yes normoactive bowel sounds PALPATION: Yes Soft to palpation and Yes No hepatosplenomegaly present RECTAL EXAM: Yes deferred OTHER: Right upper quadrant and epigastric abdominal tenderness present minimal guarding, No rebound tenderness Extremity: COMMON NORMALS: no clubbing, cyanosis or edema and no pedal edema Neuro: COMMON NORMALS: patient oriented x3 Data 12/13/22 17:28 12/13/22 14:33 A&P Assessment and plan (1) GI (gastrointestinal bleed): (2) Mass of right lung: (3) CAD (coronary artery disease): Qualifiers: Associated angina: without angina Coronary Disease-Associated Arter y/Lesion type: [place] artery [place] vs. transplanted heart: [place] heart Qualified Code(s): I25.10 - Atherosclerotic heart disease of [place] coronary artery without angina pectoris (4) PAD (peripheral artery disease): (5) HTN (hypertension): Qualifiers: Hypertension type: essential hypertension Qualified Code(s): I10 - Essential (primary) hypertension (6) COPD (chronic obstructive pulmonary disease): (7) Tobacco abuse: Plan 67 year old male with past medical history of hypertension, PAD (right superficial femoral artery in-stent restenosis status post [employer]),COPD, recently diagnosed rising pleural-based lung mass highly suspicious for malignancy, being worked up as outpatient for tissue diagnosis, came in today with chief complaint of right upper quadrant/right lower chest pain, according to the patient he has been constipated for about a week time, last night, he was having significant abdominal discomfort, followed by large bowel movement which was, dark tarry, came to to the ER today for the evaluation of the same, the ER he had another large bowel movement which was, dark and tarry. Has denied any nausea vomiting, fever cough. Assessment: GI bleed CT abdomen and pelvis : Monitor H&H Transfuse to maintain hemoglobin greater than 7 Protonix 40 IV twice daily IV hydration N.p.o. Possible surgery consult for endoscopy. History of recently diagnosed right lung mass: Pulmonary follow-up as outpatient History of peripheral artery disease: For now we will hold on aspirin and Plavix History of COPD Continue albuterol inhaler as well as budesonide inhaler Supplemental oxygen as CODE STATUS: Full code DVT prophylaxis on SCDs Attestations Medical Necessity Statement*: Patient is to be in hospital for management of GI bleed. Anticipated length of stay greater 2 midnights Coding Level of Care Code 30693 Diagnoses GI (gastrointestinal bleed) K92.2 Mass of right lung R91.8 CAD (coronary artery disease) I25.10 Associated angina: without angina Coronary Disease-Associated Artery/Lesion type: [place] artery [place] vs. transplanted heart: [place] heart PAD (peripheral artery disease) I73.9 HTN (hypertension) I10 Hypertension type: essential hypertension COPD (chronic obstructive pulmonary disease) J44.9 Tobacco abuse Z72.0
[2022-12-13] MEDS: sodium chloride 0.9% 1,000 ML 75 ML IV (18:45)
[2022-12-13] MEDS: pantoprazole 40 mg SDV IVP (18:45)
[2022-12-13] MEDS: ondansetron 2 mg/ML SDV 2 mL 4 MG IVP (20:33)
[2022-12-13] MEDS: HYDROcodone-acetaminophen 5-325 mg Tablet 1 TAB PO (22:42)
[2022-12-14 00:15] VITALS: RESP 16
[2022-12-14] MEDS: morphine 4 mg/mL SDV 1 mL 2 MG IVP (00:15)
[2022-12-14 01:26] LABS: Hematocrit 24.6 % (42.0-52.0); Hemoglobin 7.9 g/dL (11.7-16.6)
[2022-12-14 03:53] LABS: Add Urine Microscopic? NO; Charge for UA Resulting for Rev
[2022-12-14 03:59] LABS: Bilirubin Urine Neg (Negative); Blood Urine Neg (Negative); Glucose Urine UA Norm (Normal); Ketones Urine Negative (Negative); Leukocyte Esterase Urine Negative (Negative); Nitrate Urine Negative (Negative); Protein Urine Neg (Negative); Urine Appearance Clear (CLEAR); Urine Color Yellow (Yellow); Urobilinogen Urine Norm (Negative); pH Urine 5 (5-7)
[2022-12-14 04:00] VITALS: BP 114/70; PULSE 86; RESP 17; TEMP 36.7; O2SAT 94
[2022-12-14] MEDS: pantoprazole 40 mg SDV IVP (05:37)
[2022-12-14 05:38] LABS: Basophils % 0.7 %; Eosinophils # 0.2 10^3/uL (0.0-0.8); Eosinophils % 2.7 %; Hematocrit 24.9 % (42.0-52.0); Hemoglobin 7.8 g/dL (11.7-16.6); Lymphocytes % 18.3 %; Mean Corpuscular HGB Conc 31.3 g/dL (30.0-36.0); Mean Corpuscular Hemoglobin 29.1 pg (28.0-34.0); Mean Corpuscular Volume 92.9 fl (80-94); Mean Platelet Volume 9.3 fL (7.4-10.4); Monocytes # 0.3 10^3/uL (0.2-0.9); Monocytes % 4.8 %; Nucleated Red Blood Cells % 0 %; Platelet Count 311 10^3/cmm (130-400); Red Blood Count 2.68 10^6/uL (4.1-5.3); Red Cell Distribution Width 13.9 % (12.1-15.1); White Blood Count 5.6 10^3/uL (4.0-10.0)
[2022-12-14] MEDS: HYDROcodone-acetaminophen 5-325 mg Tablet 1 TAB PO ×2 (05:47→09:54)
[2022-12-14 05:55] LABS: INR 1.13 (0.8-1.2)
[2022-12-14 05:56] LABS: Partial Thromboplastin Time 27.8 SECONDS (23.9-36.7)
[2022-12-14 06:01] LABS: Anion Gap 9.9 (5-19); Blood Urea Nitrogen 35 mg/dL (8-23); Calcium 7.9 mg/dL (8.5-10.5); Carbon Dioxide 20 mmol/L (22-29); Chloride 104 mmol/L (98-107); Glomerular Filtration Rate 96.1 mL/min (90-130); Glucose 79 mg/dL (65-115); Osmolality Calculated 277 mOsm/kg (285-295); Potassium 3.9 mmol/L (3.5-5.1); Sodium 130 mmol/L (136-145)
[2022-12-14 08:00] VITALS: BP 112/67; PULSE 80; RESP 18; TEMP 36.3; O2SAT 92
[2022-12-14] MEDS: budesonide 0.5 mg/2 mL Neb INHALATION (08:19)
[2022-12-14] MEDS: albuterol 2.5 mg/3 mL Neb INHALATION (08:19)
[2022-12-14 08:21] VITALS: PULSE 80; RESP 16; O2SAT 96
[2022-12-14] MEDS: sodium chloride 0.9% 1,000 ML 75 ML IV (09:55)
[2022-12-14 11:08] VITALS: PULSE 86; RESP 16; O2SAT 96
[2022-12-14 11:33] VITALS: BP 115/68; PULSE 72; RESP 18; TEMP 36.4; O2SAT 97
--- NOTE | 2022-12-14 12:50 | PM.MISC ---
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 So far he had 4 dark tarry bowel movements since last night.Has denied any nausea vomiting, fever cough. CT abdomen and pelvis has shown:early or partial distal small-bowel obstruction. During the hospital stay patient was being managed for GI bleed as well as possible partial distal small bowel obstruction, H&H was being monitored patient was on Protonix IV, IV fluids, pain control, she is H&H was found downtrending parameters, patient was extremely insistent on getting discharged, told that he cannot be discharged, as his H&H is on downward trend, and he needs to stay in the hospital for monitoring as well as management, patient was educated on the Consequences of leaving the hospital AGAINST MEDICAL ADVICE. But unfortunately he signed himself out AGAINST MEDICAL ADVICE.
== END 2022-12-14 12:46 | disposition left against medical advice (07) | DRG 379 ==
LOC: ER 17:51 → MEDSURG 18:38
PROVIDERS: Admitting Provider Internal Medicine; Emergency Provider Emergency Medicine; PCP Family Medicine; Visit Provider Internal Medicine
DX: K92.1 Melena (principal); R07.89 Other chest pain; I10 Essential (primary) hypertension; I73.9 Peripheral vascular disease, unspecified; Z95.820 Peripheral vascular angioplasty status with implants and grafts; Z53.29 Procedure and treatment not carried out because of patient's decision for other reasons; J44.9 Chronic obstructive pulmonary disease, unspecified; E78.5 Hyperlipidemia, unspecified; Z96.611 Presence of right artificial shoulder joint; F17.210 Nicotine dependence, cigarettes, uncomplicated; R91.8 Other nonspecific abnormal finding of lung field
CPT/HCPCS: 36569; 36592; 71046; 74018; 74177; 80048; 80053; 81003; 85014; 85018; 85025; 85610; 85730; 86850; 86900; 94640; 96361; 96374; 96376; 99285; C1751; C9113; J1170; J2270; J2405; J7030; J7613; J7626; Q9967

== ENCOUNTER 2022-12-25 07:13 | Outpatient (CLI) | payer MEDICARE, SELFPAY ==
[2022-12-25 07:40] VITALS: PULSE 120; RESP 20; O2SAT 97
[2022-12-25] MEDS: albuterol 2.5 mg/3 mL Neb INHALATION (07:40)
[2022-12-25 07:45] VITALS: PULSE 119
== END 2022-12-25 07:14 | disposition home or self-care (01) ==
PROVIDERS: PCP Family Medicine; Visit Provider Internal Medicine Pulmonary Disease
DX: J44.9 Chronic obstructive pulmonary disease, unspecified (principal); R91.8 Other nonspecific abnormal finding of lung field
CPT/HCPCS: 94060; 94726; 94729; J7613

== ENCOUNTER 2022-12-27 05:35 | Outpatient (CLI) | payer MEDICARE, SELFPAY ==
--- NOTE | 2022-12-27 08:00 | PETR_ITS ---
PROCEDURE INFORMATION: Exam: PET/CT Skull Base to Mid-thigh Exam date and time: 12/27/2022 8:39 AM Age: 67 years old Clinical indication: Abnormal findings; RT lung mass noted on recent CT; Additional info: Mass on right lung, schedule Thursday12/06/[address] Mary LABS AND CLINICAL REPORTS: Glucose: 135 mg/dl Treatment strategy for malignancy (PET staging): Initial Staging (PI) TECHNIQUE: Imaging protocol: Following at least four-hour fasting and following the injection of radiopharmaceutical, low dose CT images were obtained. Then, PET images were obtained. Attenuation corrected images were constructed using the CT scan. Fused images of PET and CT were reviewed. The standardized uptake values (SUV) reported below are maximum values within a region of interest, expressed in gm/ml. Exam includes orbital meatal line to mid-thigh. Radiopharmaceutical: 13.55 mCi F-18 FDG (Fluorodeoxyglucose), IV. Time of imaging post radiopharmaceutical administration: 1 hour Injection site: Left antecubital COMPARISON: CT abdomen pelvis w con* [id number] 12/13/2022 5:59 PM FINDINGS: Brain: Visualized brain has normal physiologic uptake. Pharynx: No abnormal uptake. Larynx: No abnormal uptake. Lungs, pleura and trachea: A pleural based cavitary lesion involving portions of both the right upper lobe and right lower lobe is noted containing a fluid level measuring 3.3 x 5.4 cm in the axial plane on series 3, image 68 by approximately 4.2 cm superior to inferior, SUV max 9.5. The morphology and size of this lesion has changed since the prior CT of 11/18/2022 for contained more fluid and less gas and measured up to 4.7 x 4.9 cm in the axial plane by approximately 4.6 cm superior to inferior. A left lower lobe calcified granuloma is present. A right middle lobe calcified granuloma is present. No definite additional nodules with limitations of metallic artifact. Heart: Normal physiologic uptake. Mediastinal space: No abnormal uptake. Liver: No abnormal uptake. Gallbladder and bile ducts: No abnormal uptake. Cholecystectomy clips are present. Pancreas: No abnormal uptake. Spleen: There are calcified granulomas in the spleen. No abnormal uptake. Adrenal glands: No abnormal uptake. Kidneys and ureters: Normal physiologic uptake. There are bilateral non radiotracer avid low-density lesions in the kidneys, the largest of which arises from the left renal superior pole measuring 3.9 cm. Stomach and bowel: No abnormal uptake. Numerous rounded radiodense structures within small bowel loops in the pelvis are noted compatible with ingested material for example on series 3, image 141 which are relatively uniform in size measuring approximately 8 mm in diameter. Moderate stool throughout the colon is noted. Decreased evidence of small bowel distention, with borderline distention of small bowel in the pelvis. Vasculature: No abnormal uptake. There are diffuse atherosclerotic changes. A stent in the left common femoral artery is noted. There appears to be a short relatively collapsed stent in the proximal right superficial femoral artery. Lymph nodes: Mildly prominent, mildly radiotracer avid mediastinal lymph nodes are present. Examples: A pretracheal lymph node with a punctate central calcification measures 1.2 x 0.7 cm on series 3, image 57, SUV max 2.7. An aortopulmonary window lymph node measuring approximately 1 cm on series 3, image 59 demonstrates an SUV max 3.0. A lymph node along the left lateral aspect of the aortopulmonary window measuring approximately 1 cm present, SUV max 3.2. Mild uptake within the left hilar region is noted, SUV max 3.0 likely within a lymph node measuring approximately 7 mm. Uptake in the right hilar region is noted which appears to be within a lymph node measuring approximately 1.1 cm on series 3, image 71, SUV max 5.4. Non radiotracer avid calcified subcarinal and left hilar lymph nodes are noted. Bones/joints: A right glenohumeral joint prosthesis is present. A new mildly displaced fracture of the posterolateral right 7th rib on series 3, image 67 is noted with similar slightly more posteriorly located erosive changes of the cortex for example on series 3, image 68. Mild erosive changes involving the right 8th rib are also noted which appears similar. Evaluation of uptake in the right 7th and 8th ribs in these regions is difficult to determine secondary to the overlying radiotracer avid lung lesion. Healed fractures of the posterior right 8th through 10th ribs are noted. Degenerative changes throughout the spine are present. Soft tissues: No abnormal uptake in the visualized head, neck, chest, abdomen, pelvis, and extremities. METRICS: Mediastinal blood pool: SUV max 1.7 PET/PET skulltothi INITIAL [id number] IMPRESSION: 1. A previously noted pleural based lesion in the right lateral lung has changed in morphology, becoming more ovoid, with increased gas and decreased fluid within the lesion compared with 11/18/2022. This lesion is radiotracer avid (SUV max 9.5) and may represent a necrotic malignancy however an infectious etiology cannot be excluded. 2. New acute to subacute fracture of the lateral right 7th rib adjacent to the right lung lesion compared with 11/18/2022 with similar erosive changes of the right 7th and 8th ribs compared to the prior CT. These erosive changes are deep to the right lung lesion suggesting neoplastic or infectious invasion of the marrow in these locations. 3. Similar appearing small mediastinal and left hilar lymph nodes demonstrate mildly elevated uptake which may be infectious, inflammatory or neoplastic in etiology. 4. Old granulomatous changes. 5. Low-density lesions in both kidneys are similar in appearance and not fully characterized by PET-CT, statistically consistent with benign cysts.
== END 2022-12-27 05:36 | disposition home or self-care (01) ==
LOC: RAD 12-29 05:36
PROVIDERS: PCP Family Medicine; Visit Provider Internal Medicine Pulmonary Disease
DX: R91.8 Other nonspecific abnormal finding of lung field (principal); J44.9 Chronic obstructive pulmonary disease, unspecified; M84.48XA Pathological fracture, other site, initial encounter for fracture
CPT/HCPCS: 78815; A9552

== ENCOUNTER → 2023-01-08 09:11 | Outpatient (BNVA) | payer MEDICARE, SELFPAY | PROVIDERS: PCP Family Medicine; Visit Provider Internal Medicine Pulmonary Disease | DX: R91.8 Other nonspecific abnormal finding of lung field (principal); J44.9 Chronic obstructive pulmonary disease, unspecified; Z72.0 Tobacco use; F17.210 Nicotine dependence, cigarettes, uncomplicated; Z98.62 Peripheral vascular angioplasty status | CPT/HCPCS: 99204 ==

== ENCOUNTER 2023-01-23 10:15 | Outpatient (CLI) | payer MEDICARE, SELFPAY ==
[2023-01-22 09:21] VITALS: BMI 20.6
[2023-01-23] VITALS (17 sets, daily range): BP systolic 98–138; BP diastolic 60–85; PULSE 60–94; RESP 14–23; TEMP 36.3–36.5; O2SAT 94–100
--- NOTE | 2023-01-23 10:43 | US_ITS ---
WS: [id number] ULTRASOUND-GUIDED LUNG/chest wall BIOPSY HISTORY: Complex mass centered in the RIGHT lateral lung seen on prior imaging studies as PET/CT posi tive. Biopsy requested. Procedure, risks, and complications have been explained to the patient. Consent is obtained. The soft tissue mass with extension into the chest wall is localized in the RIGHT lateral chest wall. The central component is mass appears cystic. The margins will be targeted for biopsy. Skin is cleansed with ChloraPrep and then anesthetized with 1% buffered lidocaine. Conscious sedation is used including Fentanyl and Versed. Chest wall mass is localized. Access is achieved with 18-gauge spinal needle and also 20 and 18-gauge Temno needles. Specimen is placed in formalin. Attempted aspirate was also placed within a sterile c up. There is no liquid aspirated from the collection. I did attempt to aspirate some of the solid mat erial for culture and sensitivity. Chest radiograph to follow. Patient will be observed for one hour postprocedure. Will be discharged a fter 1 hour if no complications or concerns. US/US biopsy lung [id number] IMPRESSION: 1. Uncomplicated biopsy RIGHT lung/chest wall mass. The solid component of the mass was targeted for biopsy. Small cores were placed within formalin as reque sted. Additional sample was also sent for culture and sensitivity. 2. Patient tolerated the procedure well. No complications post procedure. No p neumothorax.
[2023-01-23] MEDS: sodium chloride 0.9% 1,000 ML 30 ML IV (11:32)
[2023-01-23 12:14] LABS: INR 0.94 (0.8-1.2)
[2023-01-23] MEDS: midazolam 1 mg/mL INJ 2 mL IVP (12:50)
[2023-01-23] MEDS: fentaNYL 50 mcg/mL INJ 2mL 25 MCG IVP ×3 (12:51→13:26)
--- NOTE | 2023-01-23 13:35 | XR_ITS ---
WS: [id number] PORTABLE CHEST HISTORY: post bx procedure COMPARISON: 12/13/2022 No complications status post RIGHT chest wall/lung biopsy. Hyperexpanded lungs with emphysema. No pleural effusion or pneumothorax. Cardiac size: Normal. Mediastinum/Aorta: Mild atherosclerosis aorta. RIGHT shoulder replacement. XR/XR chest 1V portable [id number] IMPRESSION: No pneumothorax status post RIGHT chest wall/lung biopsy.
[2023-03-02 11:16] LABS: PD-L1 (Clone 22C3) by IHC BBPL See Report
== END 2023-01-23 14:35 | disposition home or self-care (01) ==
PROVIDERS: Radiology Diagnostic Radiology; PCP Family Medicine; Visit Provider Internal Medicine Pulmonary Disease
DX: C34.91 Malignant neoplasm of unspecified part of right bronchus or lung (principal)
CPT/HCPCS: 32408; 36415; 71045; 85610; 87070; 87075; 87205; 88305; 88341; 88342; 96374; 96375; 96376; 99152; 99153; J2250; J3010; J7030

== ENCOUNTER 2023-02-24 10:57 | Oncology outpatient (recurring) (ONCR) | payer MEDICARE, SELFPAY | END 2023-02-27 23:59 | disposition home or self-care (01) | PROVIDERS: PCP Family Medicine; Visit Provider Internal Medicine Medical Oncology | DX: C34.81 Malignant neoplasm of overlapping sites of right bronchus and lung (principal); C79.51 Secondary malignant neoplasm of bone; C77.8 Secondary and unspecified malignant neoplasm of lymph nodes of multiple regions; D64.9 Anemia, unspecified; M79.2 Neuralgia and neuritis, unspecified; Z79.891 Long term (current) use of opiate analgesic; Z79.899 Other long term (current) drug therapy | CPT/HCPCS: 99205 ==

== ENCOUNTER 2023-03-30 15:27 | Oncology outpatient (recurring) (ONCR) | payer MEDICARE, SELFPAY ==
[2023-03-05 12:34] VITALS: BP 120/75; PULSE 102; RESP 18; TEMP 36.3; O2SAT 92
[2023-03-05 12:44] LABS: Basophils % 0.6 %; Eosinophils # 0.1 10^3/uL (0.0-0.8); Eosinophils % 1.7 %; Hematocrit 36.5 % (42.0-52.0); Hemoglobin 11.3 g/dL (11.7-16.6); Lymphocytes # 0.9 10^3/uL (0.8-4.8); Mean Corpuscular Hemoglobin 26.4 pg (28.0-34.0); Mean Corpuscular Volume 85.3 fl (80-94); Mean Platelet Volume 8.8 fL (7.4-10.4); Monocytes # 0.4 10^3/uL (0.2-0.9); Monocytes % 6.1 %; Neutrophils % 77.3 %; Nucleated Red Blood Cells % 0 %; Platelet Count 433 10^3/cmm (130-400); Red Blood Count 4.28 10^6/uL (4.1-5.3); Red Cell Distribution Width 13.5 % (12.1-15.1); White Blood Count 6.6 10^3/uL (4.0-10.0)
[2023-03-05 13:04] LABS: Alanine Aminotransferase 8 U/L (0-41); Albumin Level 3.6 g/dL (3.5-5.2); Alkaline Phosphatase 153 U/L (40-130); Anion Gap 14.1 (5-19); Aspartate Amino Transferase 10 U/L (0-40); Blood Urea Nitrogen 16 mg/dL (8-23); Calcium 9.3 mg/dL (8.5-10.5); Carbon Dioxide 29 mmol/L (22-29); Chloride 99 mmol/L (98-107); Globulin 3.1 g/dL (1.3-4.6); Glomerular Filtration Rate 83.9 mL/min (90-130); Glucose 99 mg/dL (65-115); Osmolality Calculated 287 mOsm/kg (285-295); Potassium 4.1 mmol/L (3.5-5.1); Sodium 138 mmol/L (136-145); Total Bilirubin 0.3 mg/dL (0.15-1.2); Total Protein 6.7 g/dL (6.6-8.7)
--- NOTE | 2023-03-10 10:11 | N.ONRAD NP_ITS ---
Radiation Oncology Consultation Patient Name: Karthik Gordon Date of : 1955 Date of Service: 03/10/2023 Attending Physician: Otto Yang M.D. Karthik Gordon was seen in consultation this morning at the request of Maynor Kirkpatrick M.D. for consideration of thoracic radiotherapy in the management of a recently diagnosed non-small cell lung cancer. He was evaluated at the [facility] Department in July 2022 for abdominal pain. A chest radiograph identified an opacity in the right hemithorax. A thoracic CT scan revealed a pleural-based pulmonary mass measuring 3.9 cm x 3.9 cm x 4.2 cm involving the major fissure, and bilateral scattered calcified pulmonary nodules. A PET scan ordered on December 27, 2022 demonstrated a cavitary lesion in the right-upper and right lower-lobes of the lung measuring 3.3 cm x 5.4 cm x 4.2 cm (SUV 9.5), bilateral hilar lymphadenopathy, mediastinal lymphadenopathy (SUV 2.7), a displaced fracture of the seventh rib, and erosive changes in the seventh and eighth ribs. An ultrasound-guided biopsy of the right lung mass performed on January 23, 2023 diagnosed an invasive moderate-differentiated, keratinizing squamous cell carcinoma. The patient was referred for definitive thoracic radiotherapy. I discussed with Mr. Gordon the [place] [employer] Commission on Cancer Staging for lung cancer and specifically, the patient???s clinical stage IIIC (T3N3) lung cancer corresponding to his disease. I also reviewed The National Comprehensive Cancer Network Guidelines recommending concurrent chemoradiotherapy for the management of locally advanced lung cancer established by the classic study, RTOG 9410, comparing sequential versus concurrent chemoradiotherapy that demonstrated an overall survival advantage for the concurrent chemoradiotherapy regimen. I would endorse a six week course of thoracic radiotherapy. Preceding radiotherapy, a computed tomographic radiotherapy planning scan with contrast in the treatment position will be acquired and co-registered to the patient's staging PET scan to identify the gross tumor volumes. The potential toxicities of thoracic radiotherapy were reviewed. The patient has verbalized understanding would like to proceed as recommended. The patient???s treatment plan was discussed with Maynor Kirkpatrick M.D. Signed by: Dr. Otto Yang 03/10/2023 10:09:47 AM
[2023-03-13 11:46] VITALS: BP 112/70; PULSE 89; RESP 18; TEMP 36.6; O2SAT 95
[2023-03-18] MEDS: iohexol 350 mg/mL 100 mL Btl IV (13:09)
[2023-03-24 07:33] VITALS: BMI 20.6
[2023-03-24 07:34] VITALS: BP 122/73; PULSE 80; RESP 18; TEMP 36.7; O2SAT 98
[2023-03-24 07:56] LABS: Basophils % 0.2 %; Eosinophils # 0.1 10^3/uL (0.0-0.8); Eosinophils % 1.4 %; Hematocrit 35.4 % (42.0-52.0); Lymphocytes # 1.3 10^3/uL (0.8-4.8); Mean Corpuscular HGB Conc 31.1 g/dL (30.0-36.0); Mean Corpuscular Hemoglobin 26.2 pg (28.0-34.0); Mean Corpuscular Volume 84.3 fl (80-94); Mean Platelet Volume 8.7 fL (7.4-10.4); Monocytes # 0.7 10^3/uL (0.2-0.9); Monocytes % 7.6 %; Neutrophils # 6.69 10^3/uL (1.8-7.7); Neutrophils % 75.5 %; Nucleated Red Blood Cells % 0 %; Platelet Count 408 10^3/cmm (130-400); Red Cell Distribution Width 14.6 % (12.1-15.1); White Blood Count 8.9 10^3/uL (4.0-10.0)
[2023-03-24 09:04] LABS: Alanine Aminotransferase 11 U/L (0-41); Albumin Level 3.6 g/dL (3.5-5.2); Alkaline Phosphatase 129 U/L (40-130); Aspartate Amino Transferase 11 U/L (0-40); Blood Urea Nitrogen 19 mg/dL (8-23); Carbon Dioxide 27 mmol/L (22-29); Chloride 99 mmol/L (98-107); Globulin 2.5 g/dL (1.3-4.6); Glomerular Filtration Rate 74.3 mL/min (90-130); Glucose 103 mg/dL (65-115); Osmolality Calculated 287 mOsm/kg (285-295); Sodium 137 mmol/L (136-145); Total Bilirubin 0.2 mg/dL (0.15-1.2); Total Protein 6.1 g/dL (6.6-8.7)
--- NOTE | 2023-03-24 10:27 | ONCRAD TMN_ITS ---
Radiation Oncology Weekly Treatment Management Patient: Heidi Hudson MR#: [id number] : 1955> Attending Physician: Tee Villagran Date of Service: 03/24/2023 Referring Physician(s) : Maynor Kirkpatrick M.D. Diagnosis: C34.10 - Malignant neoplasm of upper lobe, unspecified bronchus or lung, Diagnosed 01/23/2023 (Active) Stage IIIC, T3, N3, M0 Radiotherapy to date: Course: Lung 2022, Treatment Site: RT [id number], Ref. ID: [id number], Energy: 6X, Dose/Fx (cGy): 200, #Fx: , Dose Correction (cGy): 0, Total Dose (cGy): 200, Start Date: 03/24/2023, elapsed Days: 0 Reason for visit: The patient is being seen today as part of their regularly scheduled weekly on treatment visits to assess for acute toxicities from radiotherapy. Review of Systems: No complaints. No change in his breathing. No problems with cough, sputum production, or hemoptysis. He is eating well and is gained 2 pounds. He will be starting chemotherapy today. He has almost quit smoking, down to 2 cigarettes/day. Vital Signs: Per medical oncology. Physical Exam: Alert, oriented, no acute distress. Accompanied by his grandson. No cervical or supraclavicular lymphadenopathy. Lungs on auscultation have a few coarse inspiratory rhonchi. No rales or wheezes. Heart rhythm regular. Imaging: Radiation therapy imaging related to accurate target localization (i.e. KV, MV and CBCT) was reviewed. Appropriate changes, if any, were made to ensure treatment accuracy. Plan: Continue chemotherapy and radiation according to plan. No questions. Complimented on cutting down on his smoking and encouraged to completely quit. Signed by: Tee Villagran 03/24/2023 10:25:47 AM
[2023-03-24] MEDS: acetaminophen 325 mg Tablet 650 MG PO (11:29)
[2023-03-24] MEDS: sodium chloride 0.9% 250 ML 75 ML IV (11:30)
[2023-03-24] MEDS: diphenhydrAMINE 50 mg/mL SDV 1mL 25 MG IVP (11:34)
[2023-03-24] MEDS: famotidine 20 mg/2 mL INJ IVP (11:38)
[2023-03-24] MEDS: palonosetron 0.25 mg/5 mL SDV IVP (11:41)
[2023-03-24] MEDS: dexamethasone 20 MG in sodium chloride 0.9% 50 ML 188 MG IV (12:24)
[2023-03-24] MEDS: PACLitaxeL 90 MG in sodium chloride 0.9%(non-DEHP) 250 ML 265 MG IV (13:07)
[2023-03-24] MEDS: CARBOplatin 180 MG in sodium chloride 0.9% 500 ML 518 MG IV (14:26)
[2023-03-24 16:28] VITALS: BP 125/62; PULSE 77; RESP 18; TEMP 36.2; O2SAT 94
== END 2023-03-30 23:59 | disposition home or self-care (01) ==
PROVIDERS: Internal Medicine Medical Oncology; PCP Family Medicine; Visit Provider Internal Medicine Medical Oncology
DX: Z51.0 Encounter for antineoplastic radiation therapy (principal); C34.81 Malignant neoplasm of overlapping sites of right bronchus and lung; C77.8 Secondary and unspecified malignant neoplasm of lymph nodes of multiple regions; C79.51 Secondary malignant neoplasm of bone; F17.210 Nicotine dependence, cigarettes, uncomplicated
CPT/HCPCS: 36415; 36569; 71045; 77290; 77300; 77301; 77334; 77338; 77386; 80053; 85025; 96367; 96375; 96413; 96415; 96417; 99024; 99205; 99214; 99215; J1100; J1200; J1642; J2469; J3490; J7040; J7050; J9045; J9267; Q9967

== ENCOUNTER 2023-04-04 17:25 | Observation (INO) | payer MEDICARE, SELFPAY ==
[2023-04-04] VITALS (13 sets, daily range): BP systolic 103–126; BP diastolic 63–92; PULSE 87–104; RESP 15–18; TEMP 36.8–37; O2SAT 92–96; BMI 19.0
--- NOTE | 2023-04-04 17:39 | ED_ITS ---
HPI - Chest Pain General: Chief Complaint: Shortness of Breath/Dyspnea Stated Complaint: CHEST PAIN Time Seen by Provider: 04/04/23 17:39 History of Present Illness: Mr. Gordon is a 67-year-old gentleman with complex past medical history including lung cancer on chemotherapy presented to the emergency department for generalized illness. He notes worse pain that is in a different location on the right side of his chest and associated with shortness of breath and generalized malaise. He has had cough. Denies other focal source of infection. Moderate to severe in intensity. Course has persisted. No other specific changes in health, exacerbating, or alleviating factors identified. 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 HTN (hypertension) Hyperlipidemia Non-small cell lung cancer PAD (peripheral artery disease) Tobacco abuse Surgical History History of angioplasty of peripheral vessel History of chest tube placement History of laparoscopic cholecystectomy History of right shoulder replacement Status post peripheral artery angioplasty with insertion of stent Family History Father Diabetes Brother , AGE 60 CAD (coronary artery disease) Myocardial infarction Mother Diabetes Grandfather Diabetes MATERNAL Grandmother Diabetes MATERNAL Social History Smoking and tobacco status: current every day smoker cigarettes Packs smoked per day: 1 Years cigarettes smoked: 51 [ Other cigarette details: Started at age 16] Alcohol intake: former Substance/Drug Use: current Substance/Drug use frequency: few times a week Household members: none Marital status: Number of children: 1 service: No 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 kings needs: No Physical Exam Const: COMMON NORMALS: alert GENERAL APPEARANCE: cooperative and well developed HENMT: COMMON NORMALS: normocephalic and atraumatic HEAD & SCALP: normocephalic and atraumatic THROAT: posterior oropharynx normal Eye: COMMON NORMALS: conjunctivae normal CONJUNCTIVA: Yes conjunctivae normal SCLERA: sclerae normal Neck/C-Spine: COMMON NORMALS: supple GENERAL: Yes trachea midline Resp: COMMON NORMALS: normal respiratory effort EFFORT & INSPECTION: Yes able to speak in complete sentences Cardio: COMMON NORMALS: regular rate and regular rhythm RATE: regular rate RHYTHM: regular rhythm GI: COMMON NORMALS: Soft to palpation PALPATION: Yes Soft to palpation and No Tenderness to palpation present (GI) PERCUSSION: normal to percussion Extremity: GENERAL: Yes normal exam except as noted and No edema Neuro: COMMON NORMALS: moves all extremities SENSORIUM/ORIENTATION: Yes alert and No Orientation impaired Psych: COMMON NORMALS: mental status grossly normal and Normal thought process present THOUGHT PROCESS: Normal thought process present Course Vital Signs: Vital signs: Vital Signs Temperature 98.0 F 04/06/23 12:15 Pulse Rate 91 04/06/23 12:15 Respiratory Rate 16 04/06/23 12:15 Blood Pressure 121/69 04/06/23 12:15 Pulse Oximetry 97 04/06/23 12:15 Oxygen Delivery Me thod Room Air 04/06/23 11:37 MDM - Chest Pain Medical Decision Making 67-year-old gentleman presenting with generalized illness. Uncomfortable appearing with productive cough however nontoxic. EKG demonstrates sinus rhythm with nonspecific ST segment abnormalities, normal axis and intervals, no STEMI. Labs with leukopenia, anemia near baseline. Metabolic panel with likely mild dehydration. Negative range delta troponin. Negative viral panel. Chest x-ray with similar findings to prior however obscures ability to interpret. CTA with no PE, likely pneumonia as well as known cancer. Discussed incidental findings with patient. Patient has pneumonia with recent chemotherapy.. Treated with RT treatment, analgesia, broad-spectrum antibiotics. The results of ED evaluation were discussed with the patient including plan for admission due to requirement for level of care not available if discharged to prevent significant worsening/deterioration. Patient agreeable with plan. Discussed with hospitalist service who was agreeable to admit patient. Medical Records I reviewed the patient's medical records. Lab Data I reviewed the patient's lab results. 04/06/23 03:03 04/06/23 03:03 Radiology Impressions Chest X-Ray 04/04/23 17:51 IMPRESSION: 1. Stable right lower lobe mass with surrounding ground-glass opacity. Pneumonia is not excluded. 2. Possible new nodule in the peripheral right lung. A metastatic lesion is not excluded. Chest CTA 04/04/23 18:53 IMPRESSION: 1. No evidence for pulmonary embolus. 2. 7.8 cm malignant cavitary mass in the superior right lower lobe with direct invasion of the posterior right chest wall and partial destruction of the right 8th and 9th ribs. Highly suspicious nodule(s). Consider non-emergent PET/CT, or tissue sampling.(Reference: Monty) 3. Dependent opacities in the right lower lobe with mild bronchiectasis and fluid in multiple bronchi. Aspiration is not excluded. References: Monty Andrade, et al. Guidelines for Management of Incidental Pulmonary Nodules Detected on CT Images: From the Fleischner Society 2017. Radiology. 2017;284(1):228-243. COMMENTS: 1. Consistent with the [place] [employer]'s Incidental Findings Committee white paper (J Am Jose Antonio Radiol 2018): Any incidental renal lesion less than 1 cm or classified as too small to characterize, or any incidental cystic renal lesion characterized as simple-appearing, is likely benign. No follow-up imaging is recommended for these lesions per consensus recommendations based on imaging criteria. 2. In the absence of a history or active diagnosis of lung cancer, it is recommended that this patient with emphysema be evaluated for enrollment in a low dose CT lung cancer screening program. ADDENDUM: 04/04/232011 THIS REPORT CONTAINS FINDINGS THAT MAY BE CRITICAL TO PATIENT CARE. The findings were verbally communicated via telephone conference with Dr Hull at 8:07 PM CDT on 04/04/2023. The findings were acknowledged and understood. Compared to the report from the CT PET study on 12/27/2022, the right lower lobe mass has increased in size. Those prior images were not available for direct comparison. Laboratory Results WBC 3.0 10^3/uL (4.0-10.0) L 04/04/23 17:40 RBC 4.05 10^6/uL (4.1-5.3) L 04/04/23 17:40 Hgb 10.4 g/dL (11.7-16.6) L 04/04/23 17:40 Hct 33.6 % (42.0-52.0) L 04/04/23 17:40 MCV 83.0 fl (80-94) 04/04/23 17:40 MCH 25.7 pg (28.0-34.0) L 04/04/23 17:40 MCHC 31.0 g/dL (30.0-36.0) 04/04/23 17:40 RDW 15.5 % (12.1-15.1) H 04/04/23 17:40 Plt Count 307 10^3/cmm (130-400) 04/04/23 17:40 MPV 9.4 fL (7.4-10.4) 04/04/23 17:40 Neut % (Auto) 84.5 % 04/04/23 17:40 Lymph % (Auto) 8.4 % 04/04/23 17:40 [place] % (Auto) 3.4 % 04/04/23 17:40 Eos % (Auto) 2.7 % 04/04/23 17:40 Baso % (Auto) 0.3 % 04/04/23 17:40 Neut # (Auto) 2.51 10^3/uL (1.8-7.7) 04/04/23 17:40 Lymph # (Auto) 0.3 10^3/uL (0.8-4.8) L 04/04/23 17:40 [place] # (Auto) 0.1 10^3/uL (0.2-0.9) L 04/04/23 17:40 Eos # (Auto) 0.1 10^3/uL (0.0-0.8) 04/04/23 17:40 Baso # (Auto) 0.0 10^3/uL (0.0-0.1) 04/04/23 17:40 Nucleated RBC % (auto) 0 % 04/04/23 17:40 Nucleated RBCs # 0.0 /100WBC 04/04/23 17:40 Sodium 133 mmol/L (136-145) L 04/04/23 17:40 Potassium 4.3 mmol/L (3.5-5.1) 04/04/23 17:40 Chloride 96 mmol/L (98-107) L 04/04/23 17:40 Carbon Dioxide 24 mmol/L (22-29) 04/04/23 17:40 Anion Gap 17.3 (5-19) 04/04/23 17:40 BUN 25 mg/dL (8-23) H 04/04/23 17:40 Creatinine 0.6 mg/dL (0.7-1.2) L 04/04/23 17:40 GFR Calculation 134.0 mL/min (90-130) H 04/04/23 17:40 Glucose 108 mg/dL (65-115) 04/04/23 17:40 Calculated Osmolality 281 mOsm/kg (285-295) L 04/04/23 17:40 Lactic Acid 1.0 mmol/L (0.5-2.2) 04/04/23 17:40 Calcium 8.7 mg/dL (8.5-10.5) 04/04/23 17:40 Total Bilirubin 1.2 mg/dL (0.15-1.2) 04/04/23 17:40 AST 13 U/L (0-40) 04/04/23 17:40 ALT 12 U/L (0-41) 04/04/23 17:40 Alkaline Phosphatase 97 U/L (40-130) 04/04/23 17:40 Troponin T Baseline 20 ng/L (0-15) H 04/04/23 17:40 Troponin T 120 Minute 17.18 ng/L (0-15) H 04/04/23 20:04 Delta Troponin T -2.82 ABS# (0-10) L 04/04/23 20:04 C-Reactive Protein 24.2 mg/L (0.0-4.9) H 04/04/23 17:40 NT-Pro-B Natriuret Pep 220 pg/mL (0-125) H 04/04/23 17:40 Total Protein 5.7 g/dL (6.6-8.7) L 04/04/23 17:40 Albumin 3.8 g/dL (3.5-5.2) 04/04/23 17:40 Globulin 1.9 g/dL (1.3-4.6) 04/04/23 17:40 Lipase 14 U/L (13-60) 04/04/23 17:40 Procalcitonin 0.12 ng/mL (0-0.5) 04/04/23 17:40 Nasal Influ A H1 2008 PCR Not detected (NOT DETECT) 04/04/23 18:37 Adenovirus (PCR) Not detected (NOT DETECT) 04/04/23 18:37 C. pneumoniae DNA (PCR) Not detected (NOT DETECT) 04/04/23 18:37 Coronavirus 229E (PCR) Not detected (NOT DETECT) 04/04/23 18:37 Human Metapneumovir PCR Not detected (NOT DETECT) 04/04/23 18:37 Influenza A (H1) PCR Not detected (NOT DETECT) 04/04/23 18:37 Influenza A (H3) PCR Not detected (NOT DETECT) 04/04/23 18:37 Influenza Type A (PCR) Not detected (NOT DETECT) 04/04/23 18:37 Influenza Type B (PCR) Not detected (NOT DETECT) 04/04/23 18:37 M. pneumoniae (PCR) Not detected (NOT DETECT) 04/04/23 18:37 Parainfluenza 1 (PCR) Not detected (NOT DETECT) 04/04/23 18:37 Parainfluenza 2 (PCR) Not detected (NOT DETECT) 04/04/23 18:37 Parainfluenza 3 (PCR) Not detected (NOT DETECT) 04/04/23 18:37 Parainfluenza 4 (PCR) Not detected (NOT DETECT) 04/04/23 18:37 RSV Type A (PCR) Not detected (NOT DETECT) 04/04/23 18:37 RSV Type B (PCR) Not detected (NOT DETECT) 04/04/23 18:37 Entero/Rhino (PCR) Not detected (NOT DETECT) 04/04/23 18:37 SARS-CoV-2 (PCR) Not detected (NOT DETECT) 04/04/23 18:37 Discharge Plan Discharge Patient Disposition: Placed in Observation Admit Provider: Troy Santa Clinical Impression: Pneumonia, Immunosuppressed due to chemotherapy, Sepsis Discharge Diet: Regular Discharge Activity: Resume usual activity and Increase activity as tolerated Coding Level of Care Code 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
--- NOTE | 2023-04-04 17:51 | XRR_ITS ---
PROCEDURE INFORMATION: Exam: XR Chest Exam date and time: 04/04/2023 5:55 PM Age: 67 years old Clinical indication: Pain; Chest pressure; Additional info: KEEGAN Sethi TECHNIQUE: Imaging protocol: Radiologic exam of the chest. Views: 1 view. COMPARISON: 1. CR XR chest 1V portable [id number] 03/12/2023 12:[address] chest w con* [id number] 11/18/2022 9:12 AM FINDINGS: Tubes, catheters and devices: Right PICC line with tip in the proximal SVC. Lungs: Right lower lobe mass and surrounding ground-glass opacity is not significantly changed. Densities in the bilateral mid lung regions are most likely nipple shadows. New nodular density in the peripheral right mid lung. Pleural spaces: Unremarkable. No pleural effusion. No pneumothorax. Heart/Mediastinum: Unremarkable. No cardiomegaly. Bones/joints: Right shoulder arthroplasty. XR/XR chest 1V portable [id number] IMPRESSION: 1. Stable right lower lobe mass with surrounding ground-glass opacity. Pneumonia is not excluded. 2. Possible new nodule in the peripheral right lung. A metastatic lesion is not excluded.
--- NOTE | 2023-04-04 18:00 | ECG_ITS ---
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 Measurements Intervals [place] Rate: 92 P: 74 OK: 161 QRS: 74 QRSD: 94 T: 86 QT: 342 QTc: 424 Interpretive Statements SINUS RHYTHM MINIMAL ST DEPRESSION [0.025+ mV ST DEPRESSION] Compared to ECG 08/26/2022 06:05:08 ST (T wave) deviation now present Electronically Signed On 04-05-2023 19:42:33 CDT by Coco Yarbrough M.D. [id number]
[2023-04-04] MEDS: morphine 4 mg/mL SDV 1 mL IVP ×2 (18:04→20:53)
[2023-04-04] MEDS: ipratropium-albuterol 3 mL Neb INHALATION (18:13)
[2023-04-04 18:15] LABS: Basophils % 0.3 %; Eosinophils # 0.1 10^3/uL (0.0-0.8); Eosinophils % 2.7 %; Hematocrit 33.6 % (42.0-52.0); Hemoglobin 10.4 g/dL (11.7-16.6); Lymphocytes # 0.3 10^3/uL (0.8-4.8); Lymphocytes % 8.4 %; Mean Corpuscular Hemoglobin 25.7 pg (28.0-34.0); Mean Platelet Volume 9.4 fL (7.4-10.4); Monocytes # 0.1 10^3/uL (0.2-0.9); Monocytes % 3.4 %; Neutrophils # 2.51 10^3/uL (1.8-7.7); Neutrophils % 84.5 %; Nucleated Red Blood Cells % 0 %; Platelet Count 307 10^3/cmm (130-400); Red Blood Count 4.05 10^6/uL (4.1-5.3); Red Cell Distribution Width 15.5 % (12.1-15.1)
[2023-04-04 18:38] LABS: Troponin(5th) Baseline 20 ng/L (0-15)
[2023-04-04 18:44] LABS: NT Pro B Type Natriuretic Pept 220 pg/mL (0-125); Procalcitonin 0.12 ng/mL (0-0.5)
--- NOTE | 2023-04-04 18:53 | CTR_ITS ---
PROCEDURE INFORMATION: Exam: CTA Chest With Contrast Exam date and time: 04/04/2023 7:05 PM Age: 67 years old Clinical indication: Pain; Chest pressure; Prior surgery; Surgery date: 6+ months; Surgery type: Stent, gb; Additional info: Chest pain, SOB, cancer TECHNIQUE: Imaging protocol: Computed tomographic angiography of the chest with contrast. Exam focused on the arteries. 3D rendering (Not supervised by radiologist): MIP and/or 3D reconstructed images were created by the technologist. Radiation optimization: All CT scans at this facility use at least one of these dose optimization techniques: automated exposure control; mA and/or kV adjustment per patient size (includes targeted exams where dose is matched to clinical indication); or iterative reconstruction. Contrast material: OMNIPAQUE 350; Contrast volume: 67 ml; Contrast route: INTRAVENOUS (IV); REPORTING DATA: Count of CT and Cardiac NM exams in prior 12 months: This patient has received 5 known CTs and 0 known cardiac nuclear medicine studies in the 12 months prior to the current study. COMPARISON: CT angio chest PE protcl [id number] 01/18/2018 11:00 AM RADIATION DOSE METRICS: Total DLP (mGy-cm): 233.88 FINDINGS: Pulmonary arteries: Normal. No pulmonary emboli. Aorta: Unremarkable. No aortic aneurysm. No aortic dissection. Lungs: Emphysema. 4.6 x 7.8 x 6.3 cm cavitary mass in the superior segment of the right lower lobe with surrounding interstitial thickening. Dependent ground-glass opacities in the right lower lobe. Right lower lobe bronchiectasis with fluid in multiple bronchi. Pleural spaces: Posterior right pleural invasion by the right lower lobe mass. Heart: The heart size is normal. Coronary arteries: Coronary artery calcifications. Lymph nodes: Calcified mediastinal and left hilar lymph nodes. Prominent mediastinal and hilar lymph nodes are most likely reactive. Liver: Calcified granulomas in the liver. Gallbladder and bile ducts: Cholecystectomy. Prominence of the bile ducts is consistent with reservoir effect. Spleen: Calcified granulomas in the spleen. Kidneys and ureters: Bilateral renal cysts, Hounsfield units less than 20. No follow-up imaging is recommended. Bones/joints: Partial destruction of the posterior right 8th and 9th ribs due to direct invasion by the right lower lobe mass. Multiple old healed right rib fractures. Chronic T3 and T5 compression fractures. No acute fracture. Soft tissues: Unremarkable. CT/CT angio chest PE protcl [id number] IMPRESSION: 1. No evidence for pulmonary embolus. 2. 7.8 cm malignant cavitary mass in the superior right lower lobe with direct invasion of the posterior right chest wall and partial destruction of the right 8th and 9th ribs. Highly suspicious nodule(s). Consider non-emergent PET/CT, or tissue sampling.(Reference: Monty) 3. Dependent opacities in the right lower lobe with mild bronchiectasis and fluid in multiple bronchi. Aspiration is not excluded. References: Monty Andrade et al. Guidelines for Management of Incidental Pulmonary Nodules Detected on CT Images: From the Fleischner Society 2017. Radiology. 2017;284(1):228-243. COMMENTS: 1. Consistent with the [employer]'s Incidental Findings Committee white paper (J Am Jose Antonio Radiol 2018): Any incidental renal lesion less than 1 cm or classified as too small to characterize, or any incidental cystic renal lesion characterized as simple-appearing, is likely benign. No follow-up imaging is recommended for these lesions per consensus recommendations based on imaging criteria. 2. In the absence of a history or active diagnosis of lung cancer, it is recommended that this patient with emphysema be evaluated for enrollment in a low dose CT lung cancer screening program.
[2023-04-04 18:55] LABS: Alanine Aminotransferase 12 U/L (0-41); Albumin Level 3.8 g/dL (3.5-5.2); Alkaline Phosphatase 97 U/L (40-130); Anion Gap 17.3 (5-19); Aspartate Amino Transferase 13 U/L (0-40); Blood Urea Nitrogen 25 mg/dL (8-23); C Reactive Protein 24.2 mg/L (0.0-4.9); Calcium 8.7 mg/dL (8.5-10.5); Carbon Dioxide 24 mmol/L (22-29); Chloride 96 mmol/L (98-107); Globulin 1.9 g/dL (1.3-4.6); Glucose 108 mg/dL (65-115); Lipase 14 U/L (13-60); Osmolality Calculated 281 mOsm/kg (285-295); Potassium 4.3 mmol/L (3.5-5.1); Sodium 133 mmol/L (136-145); Total Bilirubin 1.2 mg/dL (0.15-1.2); Total Protein 5.7 g/dL (6.6-8.7)
[2023-04-04] MEDS: iohexol 350 mg/mL 500 mL Btl (per mL) IV (19:09)
[2023-04-04 20:24] LABS: Adenovirus Not Detected (NOT DETECT); Chlamydia Pneumoniae Not Detected (NOT DETECT); Coronavirus 229E,HKU1,NL63,OC4 Not Detected (NOT DETECT); Human Metapneumovirus Not Detected (NOT DETECT); Human Rhinovirus/Enterovirus Not Detected (NOT DETECT); Influenza A Not Detected (NOT DETECT); Influenza A H1 Not Detected (NOT DETECT); Influenza A H1-2009 Not Detected (NOT DETECT); Influenza A H3 Not Detected (NOT DETECT); Influenza B Not Detected (NOT DETECT); Mycoplasma Pneumoniae Not Detected (NOT DETECT); Parainfluenza Virus Type 1 Not Detected (NOT DETECT); Parainfluenza Virus Type 2 Not Detected (NOT DETECT); Parainfluenza Virus Type 3 Not Detected (NOT DETECT); Parainfluenza Virus Type 4 Not Detected (NOT DETECT); Respiratory Syncytial Virus A Not Detected (NOT DETECT); Respiratory Syncytial Virus B Not Detected (NOT DETECT); SARS-COV-2 Not Detected (NOT DETECT)
[2023-04-04 20:39] LABS: Troponin 5 2HR 17.18 ng/L (0-15)
[2023-04-04 20:43] LABS: Troponin 5 2HR Delta -2.82 ABS# (0-10)
[2023-04-04] MEDS: levofloxacin-dextrose 5 % 750 MG/150 ML PREMIX 100 MG IV (20:53)
--- NOTE | 2023-04-04 21:13 | P.HP_ITS ---
Providers/Chief Complaint Admitting Physician: Troy Santa MD Primary Care Provider: Liya Huerta MD Chief Complaint: CHEST PAIN History of Present Illness Karthik Gordon is a 67 year old male with past medical history significant for COPD, depression, lung cancer on chemotherapy with Dr. Kirkpatrick and chronic malignancy related pain who presents to the emergency department with right- sided chest pain. Reports symptoms for the past 3 days. Endorses associated shortness of breath, generalized malaise, fatigue, and cough. He reports he thinks he has pneumonia as he had pneumonia at least 3-4 times before and the symptoms were the same. He denies any sick contacts. Denies any recent travels. In the ED, CTA revealed increased size in the right lower lobe mass as well as evidence for pneumonia, suspicious for aspiration. Review of Systems Narrative: A complete review of systems was obtained and is negative except as stated in HPI. Medications/Allergies Home Medications Medication Instructions Recorded Confirmed Last Taken Type aspirin 81 mg tablet,delayed 81 mg PO DAILY 10/04/19 03/31/23 03/12/23 History release (Adult Low Dose Aspirin) budesonide-formoterol HFA 160 2 puff inhalation BID #18 grams 06/04/21 03/31/23 03/12/23 Rx mcg-4.5 mcg/actuation aerosol inhaler (Symbicort) clopidogrel 75 mg tablet 75 mg PO DAILY #90 tabs 09/19/21 03/31/23 03/12/23 Rx albuterol sulfate 90 mcg/actuation 2 puff inhalation Q6H PRN 05/26/22 03/31/23 03/12/23 Rx aerosol inhaler shortness of breath or wheezing #6.7 grams levofloxacin 750 mg tablet 750 mg PO DAILY #10 tabs 01/08/23 03/31/23 03/12/23 Rx gabapentin 300 mg capsule 300 mg PO TID #90 caps 02/24/23 03/31/23 03/12/23 Rx oxycodone 15 mg tablet 15 mg PO QID PRN pain 3 days #120 03/12/23 03/31/23 0 03/12/23 Rx tabs prednisone 10 mg tablet 10 mg PO BID #60 tabs 03/12/23 03/31/23 03/12/23 Rx oxycodone myristate 27 mg capsule 27 mg PO BID 30 days #60 ea 03/20/23 03/31/23 Unknown Rx sprinkle extended release 12hr(DON'T CRUSH) (Xtampza ER) prochlorperazine maleate 10 mg 10 mg PO Q4H PRN Mild Nausea #30 03/23/23 03/31/23 Unknown Rx tablet (Compazine) tabs lorazepam 1 mg tablet 0.5 - 1 mg PO Q6H PRN Severe 03/24/23 03/31/23 Unknown Rx Nausea #30 tabs escitalopram oxalate 10 mg tablet 10 mg PO DAILY #30 tabs 04/02/23 Unknown Rx Allergies Allergy/AdvReac Type Severity Reaction Status Date / Time Penicillins Allergy Unknown ALGY-Swell Verified 03/31/23 11:45 Lip/Tongue/Throat PFSH Acute PFSH: Medical History (Updated 04/04/23 @ 21:25 by Troy Santa MD) Bilateral direct inguinal hernia CAD (coronary artery disease) COPD (chronic obstructive pulmonary disease) Erectile 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 HTN (hypertension) Hyperlipidemia PAD (peripheral artery disease) Tobacco abuse Surgical History History of angioplasty of peripheral vessel History of chest tube placement History of laparoscopic cholecystectomy History of right shoulder replacement Status post peripheral artery angioplasty with insertion of stent Family History Father Diabetes Brother , AGE 60 CAD (coronary artery disease) Myocardial infarction Mother Diabetes Grandfather Diabetes MATERNAL Grandmother Diabetes MATERNAL Social History Smoking and tobacco status: current every day smoker cigarettes Packs smoked per day: 1 Years cigarettes smoked: 51 [ Other cigarette details: Started at age 16] Alcohol intake: former Substance/Drug Use: current Substance/Drug use frequency: few times a week Household members: none Marital status: Number of children: 1 service: No 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 Lying in bed. Appears fatigued. Head: Normocephalic. Atraumatic. EOM intact. Neck: No JVD. Cardiovascular: RRR. No gallops. No murmurs. No peripheral edema. Lungs: Right basilar rhonchi are present, no use of accessory muscles, no crackles or wheezes. Skin: No jaundice. No rashes. Abdomen: Normal bowel sounds, abdomen soft and nontender. Extremities: No cyanosis or clubbing. Musculoskeletal: No swollen or erythematous joints. Neurological: Moves all 4 extremities. No myoclonus. 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 Kirkpatrick (4) COPD (chronic obstructive pulmonary disease): Hold home prednisone Start IV steroids Continue breathing treatments (5) HTN (hypertension): Appears diet controlled Monitor for now Qualifiers: Hypertension type: essential hypertension Qualified Code(s): I10 - Essential (primary) hypertension (6) CAD (coronary artery disease): Continue aspirin Continue Plavix Qualifiers: Coronary Disease-Associated Artery/Lesion type: [place] artery [place] vs. transplanted heart: [place] heart Associated angina: without angina Qualified Code(s): I25.10 - Atherosclerotic heart disease of [place] coronary artery without angina pectoris Plan DVT prophylaxis: Lovenox Attestations Medical Necessity Statement*: Patient presents with symptoms of pneumonia in the setting of immunosuppression with expected hospitalization not to cross 2 midnights Coding Level of Care Code Acute Code for [facility] Diagnoses Pneumonia J18.9 Immunosuppressed due to chemotherapy D84.821; T45.1X5A; Z79.899 Malignant neoplasm of overlapping sites of right lung C34.81 COPD (chronic obstructive pulmonary disease) J44.9 HTN (hypertension) I10 Hypertension type: essential hypertension CAD (coronary artery disease) I25.10 Coronary Disease-Associated Artery/Lesion type: [place] artery [place] vs. transplanted heart: [place] heart Associated angina: without angina
[2023-04-04] MEDS: vancomycin 1,500 MG/300 ML PIGGYBACK 200 MG IV (22:31)
[2023-04-04] MEDS: enoxaparin 40 mg/0.4 mL Syringe SUBCUT (23:37)
[2023-04-04] MEDS: meropenem 1,000 MG in sodium chloride 0.9% (plus) 50 ML 100 MG IV (23:37)
[2023-04-04] MEDS: methylPREDNISolone sod succ 40 MG in water for injection-sterile 1 ML 12 MG IVP (23:37)
[2023-04-04] MEDS: HYDROcodone-acetaminophen 5-325 mg Tablet 1 TAB PO (23:38)
--- NOTE | 2023-04-04 23:52 | ECG_ITS ---
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 Measurements Intervals [place] Rate: 87 P: 75 SD: 171 QRS: 75 QRSD: 99 T: 79 QT: 371 QTc: 448 Interpretive Statements SINUS RHYTHM Compared to ECG 04/04/2023 18:00:41 ST (T wave) deviation no longer present Electronically Signed On 04-05-2023 20:03:27 CDT by Coco Yarbrough M.D. [email or web address] [id number]
[2023-04-05] VITALS (22 sets, daily range): BP systolic 101–141; BP diastolic 52–70; PULSE 76–94; RESP 15–18; TEMP 36.5–36.8; O2SAT 93–98
[2023-04-05] MEDS: ipratropium-albuterol 3 mL Neb INHALATION ×7 (00:07→23:56)
[2023-04-05 01:12] LABS: Troponin 5 6HR 22.42 ng/L (0-15)
[2023-04-05 01:16] LABS: Troponin 5 6HR Delta 2.42 ng/L (0-12)
[2023-04-05] MEDS: methylPREDNISolone sod succ 40 MG in water for injection-sterile 1 ML 12 MG IVP ×3 (06:14→23:26)
[2023-04-05] MEDS: oxyCODONE 5 mg IR Tab/Cap 15 MG PO ×2 (06:15→22:32)
[2023-04-05] MEDS: meropenem 1,000 MG in sodium chloride 0.9% (plus) 50 ML 100 MG IV ×3 (06:16→23:23)
[2023-04-05] MEDS: budesonide 0.5 mg/2 mL Neb INHALATION ×2 (07:15→20:29)
[2023-04-05] MEDS: escitalopram 10 mg Tablet PO (08:19)
[2023-04-05] MEDS: aspirin 81 mg EC Tablet PO (08:19)
[2023-04-05] MEDS: clopidogrel 75 mg Tablet PO (08:19)
[2023-04-05] MEDS: gabapentin 300 mg Capsule PO ×3 (08:19→22:32)
[2023-04-05] MEDS: HYDROcodone-acetaminophen 5-325 mg Tablet 1 TAB PO (08:20)
[2023-04-05] MEDS: vancomycin 1,250 MG/250 ML PIGGYBACK 250 MG IV ×2 (11:02→23:24)
[2023-04-05] MEDS: sodium chloride 3.5% neb 4 mL Neb INHALATION (12:16)
[2023-04-05] MEDS: oxyCODONE ER 10 MG, oxyCODONE ER 20 MG 30 MG PO ×2 (12:18→17:17)
[2023-04-05] MEDS: pantoprazole 40 mg SDV IVP (12:33)
--- NOTE | 2023-04-05 13:27 | PM.PN ---
Subjective Subjective: Admitted overnight. H&P and labs appreciated. Examination patient lying comfortably in bed. States he came to the hospital because he had a sharp pain on the left side of his chest after which he was not able to catch his breath. He was saturating in low 80s at home. Currently on room air saturating over 92%. Currently on chemo and radiation therapy with last dose of chemotherapy last week. Complains of nausea without any vomiting and multiple episodes of diarrhea at home. States pain is well controlled. Takes oxycodone 15 4 times daily as needed along with extended release oxycodone twice daily. States he tries his best not to get constipation. Blood work appreciated for lymphopenia, mild hyponatremia. Vitals/I&O/Wt Last Vital Signs Temp 98.3 F 04/05/23 11:24 Pulse 90 04/05/23 12:18 Resp 16 04/05/23 12:18 BP 110/55 04/05/23 11:24 Pulse Ox 95 04/05/23 12:52 O2 Del Method Room Air 04/05/23 12:52 04/04/23 04/05/23 04/05/23 22:59 06:59 14:59 Intake Total 150 / 150 402 / 552 730 / 730 Balance 150 / 150 402 / 552 730 / 730 Weight last 48 hrs Weight 63.503 kg Physical Exam Narrative: General: Patient is awake and alert. Lying in bed. Appears fatigued. Head: Normocephalic. Atraumatic. EOM intact. Neck: No JVD. Cardiovascular: RRR. No gallops. No murmurs. No peripheral edema. Lungs: Right basilar rhonchi are present, no use of accessory muscles, no crackles or wheezes. Skin: No jaundice. No rashes. Abdomen: Normal bowel sounds, abdomen soft and nontender. Extremities: No cyanosis or clubbing. Musculoskeletal: No swollen or erythematous joints. Neurological: Moves all 4 extremities. No myoclonus. Data 04/04/23 17:40 04/04/23 17:40 Micro: Microbiology 04/05/23 06:20 MRSA Culture - Final Nose 04/04/23 20:19 Blood Culture - Preliminary Blood SPECIMEN COLLECTED 04/04/23 20:10 Blood Culture - Preliminary Blood SPECIMEN COLLECTED A&P Assessment and plan (1) Pneumonia: Right upper lobe cavitary lesion along with possible pneumonia right lower lobe. Neck For now continue with empiric vancomycin and Zosyn. Neck Check MRSA swab. Check urine Legionella, bacterial antigen, galactomannan serum antigen, beta D glucan given cavitary lesion. Incentive spirometry. Keep oxygen saturation over 90%. Check sputum culture. If not able to produce sputum will ask for induction. (2) COPD (chronic obstructive pulmonary disease): On prednisone 10 mg at home. For now continue with DuoNeb every 4 hours, Pulmicort twice daily. Oral home steroids changed to Solu-Medrol 40 mg IV every 8 hourly on admission. For now we will continue. We will try to wean off slowly within next 24 hours. 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 Kirkpatrick (5) HTN (hypertension): Appears diet controlled Monitor for now Qualifiers: Hypertension type: essential hypertension Qualified Code(s): I10 - Essential (primary) hypertension (6) CAD (coronary artery disease): No active chest pain. Continue with home dose of aspirin, statin. Check A1c, lipid panel. Qualifiers: Coronary Disease-Associated Artery/Lesion type: [place] artery [place] vs. transplanted heart: [place] heart Associated angina: without angina Qualified Code(s): I25.10 - Atherosclerotic heart disease of [place] coronary artery without angina pectoris Plan DVT prophylaxis: Lovenox CODE STATUS: Discussed in detail. Full code. Regular diet. Protonix for PUD prophylaxis. Check CBC, CMP, vitamin B12, folate level, iron panel, stool studies. Attestations Medical Necessity Statement*: Switch to inpatient. Requires further hospitalization for management of hypoxia in setting of pneumonia in a patient who is immunocompromised secondary to chemoradiation therapy for lung cancer Diagnoses Pneumonia J18.9 COPD (chronic obstructive pulmonary disease) J44.9 Immunosuppressed due to chemotherapy D84.821; T45.1X5A; Z79.899 Malignant neoplasm of overlapping sites of right lung C34.81 HTN (hypertension) I10 Hypertension type: essential hypertension CAD (coronary artery disease) I25.10 Coronary Disease-Associated Artery/Lesion type: [place] artery [place] vs. transplanted heart: [place] heart Associated angina: without angina
[2023-04-05 13:43] LABS: Basophils % 0.3 %; Hematocrit 29.2 % (42.0-52.0); Hemoglobin 9.2 g/dL (11.7-16.6); Lymphocytes # 0.1 10^3/uL (0.8-4.8); Lymphocytes % 2.3 %; Mean Corpuscular HGB Conc 31.5 g/dL (30.0-36.0); Mean Corpuscular Hemoglobin 25.9 pg (28.0-34.0); Mean Corpuscular Volume 82.3 fl (80-94); Mean Platelet Volume 9.1 fL (7.4-10.4); Monocytes # 0.1 10^3/uL (0.2-0.9); Neutrophils % 94.4 %; Nucleated Red Blood Cells % 0 %; Platelet Count 269 10^3/cmm (130-400); Red Blood Count 3.55 10^6/uL (4.1-5.3); Red Cell Distribution Width 15.6 % (12.1-15.1); White Blood Count 3.1 10^3/uL (4.0-10.0)
[2023-04-05 14:46] LABS: Procalcitonin 0.07 ng/mL (0-0.5); Thyroid Stimulating Hormone 0.19 uIU/mL (0.27-4.20); Vitamin B12 225 pg/mL (232-1245)
[2023-04-05 14:58] LABS: Alanine Aminotransferase 9 U/L (0-41); Albumin Level 3.3 g/dL (3.5-5.2); Alkaline Phosphatase 81 U/L (40-130); Anion Gap 16.6 (5-19); Aspartate Amino Transferase 9 U/L (0-40); Blood Urea Nitrogen 23 mg/dL (8-23); C Reactive Protein 16.8 mg/L (0.0-4.9); Calcium 8.6 mg/dL (8.5-10.5); Carbon Dioxide 22 mmol/L (22-29); Chloride 99 mmol/L (98-107); Globulin 1.9 g/dL (1.3-4.6); Glomerular Filtration Rate 96.1 mL/min (90-130); Glucose 162 mg/dL (65-115); Iron 46 ug/dL (59-158); Osmolality Calculated 283 mOsm/kg (285-295); Percent Saturation 16.8 % (20-50); Potassium 4.6 mmol/L (3.5-5.1); Sodium 133 mmol/L (136-145); Total Bilirubin 0.5 mg/dL (0.15-1.2); Total Iron Binding Capacity 273 mcg/dl; Total Protein 5.2 g/dL (6.6-8.7); Unsaturated Iron Binding 227 ug/dL (112-347)
--- NOTE | 2023-04-05 15:36 | PC.NURSE ---
Patient requested that this nurse bring him the belongings of his that were locked in the Pyxis to be returned to him. This nurse returned patients belongings and patient gave the belongings to visitor at bedside.
[2023-04-05] MEDS: cyanocobalamin 1,000 mcg/mL SDV 1000 MCG IM (16:06)
[2023-04-05 16:08] LABS: T3 Free 1.8 PG/ML (2.0-4.4)
[2023-04-05] MEDS: enoxaparin 40 mg/0.4 mL Syringe SUBCUT (23:23)
[2023-04-06] VITALS (10 sets, daily range): BP systolic 112–122; BP diastolic 55–69; PULSE 74–93; RESP 16–18; TEMP 36.5–36.7; O2SAT 92–97
[2023-04-06] MEDS: ipratropium-albuterol 3 mL Neb INHALATION ×2 (04:08→07:52)
[2023-04-06 05:02] LABS: Basophils % 0.3 %; Hematocrit 28.7 % (42.0-52.0); Hemoglobin 8.9 g/dL (11.7-16.6); Lymphocytes # 0.1 10^3/uL (0.8-4.8); Lymphocytes % 3.4 %; Mean Corpuscular Hemoglobin 26.3 pg (28.0-34.0); Mean Corpuscular Volume 84.9 fl (80-94); Mean Platelet Volume 9.2 fL (7.4-10.4); Monocytes # 0.1 10^3/uL (0.2-0.9); Neutrophils # 2.74 10^3/uL (1.8-7.7); Neutrophils % 92.6 %; Nucleated Red Blood Cells % 0 %; Platelet Count 252 10^3/cmm (130-400); Red Blood Count 3.38 10^6/uL (4.1-5.3); Red Cell Distribution Width 15.9 % (12.1-15.1)
[2023-04-06] MEDS: oxyCODONE 5 mg IR Tab/Cap 15 MG PO (05:09)
[2023-04-06 05:17] LABS: Estmated Average Glucose 134; Hemoglobin A1C 6.3 % (4.0-6.0)
[2023-04-06 05:41] LABS: Alanine Aminotransferase 8 U/L (0-41); Albumin Level 3.4 g/dL (3.5-5.2); Alkaline Phosphatase 79 U/L (40-130); Anion Gap 15.7 (5-19); Aspartate Amino Transferase 8 U/L (0-40); Blood Urea Nitrogen 23 mg/dL (8-23); Calcium 8.7 mg/dL (8.5-10.5); Carbon Dioxide 23 mmol/L (22-29); Chloride 105 mmol/L (98-107); Chol HDL Ratio 2.77 mg/dL (1.0-5.00); Cholesterol 166 mg/dL (0-200); Globulin 1.9 g/dL (1.3-4.6); Glomerular Filtration Rate 96.1 mL/min (90-130); Glucose 153 mg/dL (65-115); HDL Cholesterol 60 mg/dL (60-100); LDL Cholesterol Calculated 94 mg/dL (50-129); LDL HDL Ratio 1.57 RATIO (0.00-3.22); Magnesium 1.9 mg/dL (1.7-2.3); Osmolality Calculated 295 mOsm/kg (285-295); Potassium 4.7 mmol/L (3.5-5.1); Sodium 139 mmol/L (136-145); Total Bilirubin 0.3 mg/dL (0.15-1.2); Total Protein 5.3 g/dL (6.6-8.7); Triglycerides 60 mg/dL (0-150); VLDL Cholestrol Calculation 12 mg/dL (0-30)
[2023-04-06 05:45] LABS: Folate Level 10.7 ng/mL (4.5-32.2)
[2023-04-06 05:58] LABS: Glucose Urine UA 1+ (Normal); Ketones Urine 1+ (Negative); Protein Urine Trace (Negative); Specific Gravity, Urine 1.025 (1.005-1.030); Urine Appearance Clear (CLEAR); Urine Color Yellow (Yellow); pH Urine 5 (5-7)
[2023-04-06 05:59] LABS: Add Urine Microscopic? YES; Bilirubin Urine Neg (Negative); Blood Urine Neg (Negative); Leukocyte Esterase Urine Negative (Negative); Nitrate Urine Negative (Negative); Urobilinogen Urine Norm (Negative)
[2023-04-06 06:00] LABS: Bacteria Urine 1+ /hpf; Mucus Urine 1+ /hpf; RBC Urine 0-4 /hpf (0-2); Squamous Epithelial Cell Urine 0-4 /hpf (0-5); WBC Urine 0-4 /hpf (0-5)
[2023-04-06 06:01] LABS: Add Urine Culture? No
[2023-04-06] MEDS: meropenem 1,000 MG in sodium chloride 0.9% (plus) 50 ML 100 MG IV (06:14)
[2023-04-06] MEDS: LORazepam 1 mg Tablet PO (06:18)
[2023-04-06] MEDS: methylPREDNISolone sod succ 40 MG in water for injection-sterile 1 ML 12 MG IVP (06:24)
--- NOTE | 2023-04-06 07:06 | PC.NURSE ---
removed pt vape and placed in pyxis with pt permission. requested nicotine patch for pt from dr dubon. order received.
[2023-04-06] MEDS: budesonide 0.5 mg/2 mL Neb INHALATION (07:52)
[2023-04-06] MEDS: oxyCODONE ER 10 MG, oxyCODONE ER 20 MG 30 MG PO (08:19)
[2023-04-06] MEDS: gabapentin 300 mg Capsule PO (08:20)
[2023-04-06] MEDS: clopidogrel 75 mg Tablet PO (08:20)
[2023-04-06] MEDS: cyanocobalamin 1,000 mcg/mL SDV 1000 MCG IM (08:20)
[2023-04-06] MEDS: nicotine 21 mg Patch 1 PATCH TRANSDERMA (08:20)
[2023-04-06] MEDS: aspirin 81 mg EC Tablet PO (08:20)
[2023-04-06] MEDS: escitalopram 10 mg Tablet PO (08:20)
--- NOTE | 2023-04-06 09:50 | P.DS_ITS ---
Discharge Providers Date of Admission: 04/04/23 21:24 Date of Discharge: April 06, 2023 Attending Provider at Admission: Troy Santa MD Attending Provider at Discharge: Idris Niño MD Primary Care Provider: Liya Huerta MD Diagnoses at Discharge Discharge Diagnosis (1) Pneumonia: Status: Acute (2) COPD (chronic obstructive pulmonary disease): Status: Chronic (3) Immunosuppressed due to chemotherapy: Status: Acute (4) Malignant neoplasm of overlapping sites of right lung: Status: Acute (5) HTN (hypertension): Status: Chronic Qualifiers: Hypertension type: essential hypertension Qualified Code(s): I10 - Essential (primary) hypertension (6) CAD (coronary artery disease): Status: Chronic Qualifiers: Associated angina: without angina Coronary Disease-Associated Artery/Lesion type: resighini artery [place] vs. transplanted heart: resighini heart Qualified Code(s): I25.10 - Atherosclerotic heart disease of resighini coronary artery without angina pectoris Reason for Visit Reason for Visit: CHEST PAIN Brief History: History as per HPI: Karthik Gordon is a 67 year old male with past medical history significant for COPD, depression, lung cancer on chemotherapy with Dr. Kirkpatrick and chronic malignancy related pain who presents to the emergency department with right- sided chest pain.? Reports symptoms for the past 3 days.? Endorses associated shortness of breath, generalized malaise, fatigue, and cough.? He reports he thinks he has pneumonia as he had pneumonia at least 3-4 times before and the symptoms were the same.? He denies any sick contacts.? Denies any recent travels. In the ED, CTA revealed increased size in the right lower lobe mass as well as evidence for pneumonia, suspicious for aspiration. Hospital Course Hospital Course Patient was admitted to the hospital for further evaluation of shortness of breath. On admission there was a concern for a possible pneumonia. CTA was done which ruled out PE. He was started on broad-spectrum antibiotics. During hospitalization patient did not have leukocytosis, fevers and remained on room air. On CT scan he was found to have a cavitary lesion on right upper lobe for which work-up with galactomannan and beta D glucan to rule out fungal infection was sent out. Patient remained hemodynamically stable and afebrile. He has been discharged in hemodynamically stable condition on oral Levaquin and vitamin B12 supplementation. He is to continue following up with chemoradiation therapy. Galactomannan and beta D glucan levels have to be followed up as an outpatient. Physical Exam Narrative: General: Patient is awake and alert. Lying in bed. Appears fatigued. Head: Normocephalic. Atraumatic. EOM intact. Neck: No JVD. Cardiovascular: RRR. No gallops. No murmurs. No peripheral edema. Lungs: Right basilar rhonchi are present, no use of accessory muscles, no crackles or wheezes. Skin: No jaundice. No rashes. Abdomen: Normal bowel sounds, abdomen soft and nontender. Extremities: No cyanosis or clubbing. Musculoskeletal: No swollen or erythematous joints. Neurological: Moves all 4 extremities. No myoclonus. Discharge Data Studies Completed and Pending Completed Studies During Hospitalization Category Date Time Status CTA chest [CT angio chest PE protcl [id number]] Stat Cat Scan 04/04/23 18:53 Completed XR chest 1V portable [id number] Stat Exams 04/04/23 17:51 Completed Pending at discharge Category Date Time Status 1-3 Beta D Glucan [Fungitell Glucan Assay (Blood)] Lab 04/05/23 13:25 Received Routine Blood Culture Stat Lab 04/04/23 20:19 Results Clostridioides Difficile PCR Routine Lab 04/05/23 11:20 Ordered Enteric Bacterial Panel by PCR Routine Lab 04/05/23 11:20 Ordered Enteric Parasite Panel by PCR Routine Lab 04/05/23 11:20 Ordered GALACTOMANAN [Aspergillus AG,EIA,Serum] Routine Lab 04/05/23 13:25 Received Lactoferrin Routine Lab 04/05/23 11:20 Ordered Sputum Culture and Gram Stain Stat Lab 04/05/23 12:25 Results Vancomycin Trough Timed Lab 04/06/23 10:30 Ordered Radiology Impressions Chest X-Ray 04/04/23 17:51 IMPRESSION: 1. Stable right lower lobe mass with surrounding ground-glass opacity. Pneumonia is not excluded. 2. Possible new nodule in the peripheral right lung. A metastatic lesion is not excluded. Chest CTA 04/04/23 18:53 IMPRESSION: 1. No evidence for pulmonary embolus. 2. 7.8 cm malignant cavitary mass in the superior right lower lobe with direct invasion of the posterior right chest wall and partial destruction of the right 8th and 9th ribs. Highly suspicious nodule(s). Consider non-emergent PET/CT, or tissue sampling.(Reference: Monty) 3. Dependent opacities in the right lower lobe with mild bronchiectasis and fluid in multiple bronchi. Aspiration is not excluded. References: Monty Andrade et al. Guidelines for Management of Incidental Pulmonary Nodules Detected on CT Images: From the Fleischner Society 2017. Radiology. 2017;284(1):228-243. COMMENTS: 1. Consistent with the [place] [employer]'s Incidental Findings Committee white paper (J Am Jose Antonio Radiol 2018): Any incidental renal lesion less than 1 cm or classified as too small to characterize, or any incidental cystic renal lesion characterized as simple-appearing, is likely benign. No follow-up imaging is recommended for these lesions per consensus recommendations based on imaging criteria. 2. In the absence of a history or active diagnosis of lung cancer, it is recommended that this patient with emphysema be evaluated for enrollment in a low dose CT lung cancer screening program. ADDENDUM: 04/04/232011 THIS REPORT CONTAINS FINDINGS THAT MAY BE CRITICAL TO PATIENT CARE. The findings were verbally communicated via telephone conference with Dr Hull at 8:07 PM CDT on 04/04/2023. The findings were acknowledged and understood. Compared to the report from the CT PET study on 12/27/2022, the right lower lobe mass has increased in size. Those prior images were not available for direct comparison. Microbiology 04/05/23 12:25 Sputum - Expectorated Sputum Gram Stain - Final 04/05/23 12:25 Sputum - Expectorated Sputum Sputum Culture - Preliminary 04/05/23 05:20 Urine Kidney Bacterial Antigens - Final 04/06/23 05:20 Unknown Source Legionella Urinary Antigen - Final 04/04/23 20:19 Blood Blood Culture - Preliminary NEGATIVE TO DATE 04/04/23 20:10 Blood Blood Culture - Preliminary NEGATIVE TO DATE 04/05/23 06:20 Nose MRSA Culture - Final Laboratory Results WBC 3.0 10^3/uL (4.0-10.0) L 04/06/23 03:03 RBC 3.38 10^6/uL (4.1-5.3) L 04/06/23 03:03 Hgb 8.9 g/dL (11.7-16.6) L 04/06/23 03:03 Hct 28.7 % (42.0-52.0) L 04/06/23 03:03 MCV 84.9 fl (80-94) 04/06/23 03:03 MCH 26.3 pg (28.0-34.0) L 04/06/23 03:03 MCHC 31.0 g/dL (30.0-36.0) 04/06/23 03:03 RDW 15.9 % (12.1-15.1) H 04/06/23 03:03 Plt Count 252 10^3/cmm (130-400) 04/06/23 03:03 MPV 9.2 fL (7.4-10.4) 04/06/23 03:03 Neut % (Auto) 92.6 % 04/06/23 03:03 Lymph % (Auto) 3.4 % 04/06/23 03:03 Hand % (Auto) 3.0 % 04/06/23 03:03 Eos % (Auto) 0.0 % 04/06/23 03:03 Baso % (Auto) 0.3 % 04/06/23 03:03 Neut # (Auto) 2.74 10^3/uL (1.8-7.7) 04/06/23 03:03 Lymph # (Auto) 0.1 10^3/uL (0.8-4.8) L 04/06/23 03:03 Hand # (Auto) 0.1 10^3/uL (0.2-0.9) L 04/06/23 03:03 Eos # (Auto) 0.0 10^3/uL (0.0-0.8) 04/06/23 03:03 Baso # (Auto) 0.0 10^3/uL (0.0-0.1) 04/06/23 03:03 Nucleated RBC % (auto) 0 % 04/06/23 03:03 Nucleated RBCs # 0.0 /100WBC 04/06/23 03:03 Sodium 139 mmol/L (136-145) 04/06/23 03:03 Potassium 4.7 mmol/L (3.5-5.1) 04/06/23 03:03 Chloride 105 mmol/L (98-107) 04/06/23 03:03 Carbon Dioxide 23 mmol/L (22-29) 04/06/23 03:03 Anion Gap 15.7 (5-19) 04/06/23 03:03 BUN 23 mg/dL (8-23) 04/06/23 03:03 Creatinine 0.8 mg/dL (0.7-1.2) 04/06/23 03:03 GFR Calculation 96.1 mL/min (90-130) 04/06/23 03:03 Glucose 153 mg/dL (65-115) H 04/06/23 03:03 Estimat Average Glucose 134 04/06/23 03:03 Hemoglobin A1c 6.3 % (4.0-6.0) H 04/06/23 03:03 Calculated Osmolality 295 mOsm/kg (285-295) 04/06/23 03:03 Lactic Acid 1.0 mmol/L (0.5-2.2) 04/04/23 17:40 Calcium 8.7 mg/dL (8.5-10.5) 04/06/23 03:03 Phosphorus 3.0 mg/dL (2.5-4.5) 04/06/23 03:03 Magnesium 1.9 mg/dL (1.7-2.3) 04/06/23 03:03 Iron 46 ug/dL (59-158) L 04/05/23 13:25 TIBC 273 mcg/dl 04/05/23 13:25 % Saturation 16.8 % (20-50) L 04/05/23 13:25 Unsat Iron Binding 227 ug/dL (112-347) 04/05/23 13:25 Total Bilirubin 0.3 mg/dL (0.15-1.2) 04/06/23 03:03 AST 8 U/L (0-40) 04/06/23 03:03 ALT 8 U/L (0-41) 04/06/23 03:03 Alkaline Phosphatase 79 U/L (40-130) 04/06/23 03:03 Troponin T Baseline 20 ng/L (0-15) H 04/04/23 17:40 Troponin T 120 Minute 17.18 ng/L (0-15) H 04/04/23 20:04 Delta Troponin T -2.82 ABS# (0-10) L 04/04/23 20:04 Troponin T Hi Sens 6Hr 22.42 ng/L (0-15) H 04/05/23 00:46 Troponin T Hi Sens 6Hr Delta 2.42 ng/L (0-12) 04/05/23 00:46 C-Reactive Protein 16.8 mg/L (0.0-4.9) H 04/05/23 13:25 NT-Pro-B Natriuret Pep 220 pg/mL (0-125) H 04/04/23 17:40 Total Protein 5.3 g/dL (6.6-8.7) L 04/06/23 03:03 Albumin 3.4 g/dL (3.5-5.2) L 04/06/23 03:03 Globulin 1.9 g/dL (1.3-4.6) 04/06/23 03:03 Triglycerides 60 mg/dL (0-150) 04/06/23 03:03 Cholesterol 166 mg/dL (0-200) 04/06/23 03:03 LDL Cholesterol, Calc 94 mg/dL (50-129) 04/06/23 03:03 Total VLDL Cholesterol 12 mg/dL (0-30) 04/06/23 03:03 HDL Cholesterol 60 mg/dL (60-100) 04/06/23 03:03 LDL/HDL Ratio 1.57 RATIO (0.00-3.22) 04/06/23 03:03 Cholesterol/HDL Ratio 2.77 mg/dL (1.0-5.00) 04/06/23 03:03 Lipase 14 U/L (13-60) 04/04/23 17:40 Vitamin B12 225 pg/mL (232-1245) L 04/05/23 13:25 Folate 10.7 ng/mL (4.5-32.2) 04/06/23 03:03 Procalcitonin 0.07 ng/mL (0-0.5) 04/05/23 13:25 TSH 0.19 uIU/mL (0.27-4.20) L 04/05/23 13:25 Free T4 1.40 ng/dL (0.82-1.77) 04/05/23 00:46 Free T3 1.8 PG/ML (2.0-4.4) L 04/05/23 00:46 Urine Color Yellow (Yellow) 04/06/23 05:20 Urine Appearance Clear (CLEAR) 04/06/23 05:20 Urine pH 5 (5-7) 04/06/23 05:20 Ur Specific [place] 1.025 (1.005-1.030) 04/06/23 05:20 Urine Protein Trace (Negative) 04/06/23 05:20 Urine Glucose (UA) 1+ (Normal) H 04/06/23 05:20 Urine Ketones 1+ (Negative) H 04/06/23 05:20 Urine Blood Neg (Negative) 04/06/23 05:20 Urine Nitrate Negative (Negative) 04/06/23 05:20 Urine Bilirubin Neg (Negative) 04/06/23 05:20 Urine Urobilinogen Norm mg/dL (Negative) 04/06/23 05:20 Ur Leukocyte Esterase Negative (Negative) 04/06/23 05:20 Urine RBC 0-4 /hpf (0-2) H 04/06/23 05:20 Urine WBC 0-4 /hpf (0-5) H 04/06/23 05:20 Ur Squamous Epith Cells 0-4 /hpf (0-5) H 04/06/23 05:20 Amorphous Sediment Not Reportable 04/06/23 05:20 Urine Bacteria 1+ /hpf (NONE) H 04/06/23 05:20 Hyaline Casts 5-10 /lpf H 04/06/23 05:20 Urine Mucus 1+ /hpf 04/06/23 05:20 Nasal Influ A H1 2008 PCR Not detected (NOT DETECT) 04/04/23 18:37 Adenovirus (PCR) Not detected (NOT DETECT) 04/04/23 18:37 C. pneumoniae DNA (PCR) Not detected (NOT DETECT) 04/04/23 18:37 Coronavirus 229E (PCR) Not detected (NOT DETECT) 04/04/23 18:37 Human Metapneumovir PCR Not detected (NOT DETECT) 04/04/23 18:37 Influenza A (H1) PCR Not detected (NOT DETECT) 04/04/23 18:37 Influenza A (H3) PCR Not detected (NOT DETECT) 04/04/23 18:37 Influenza Type A (PCR) Not detected (NOT DETECT) 04/04/23 18:37 Influenza Type B (PCR) Not detected (NOT DETECT) 04/04/23 18:37 M. pneumoniae (PCR) Not detected (NOT DETECT) 04/04/23 18:37 Parainfluenza 1 (PCR) Not detected (NOT DETECT) 04/04/23 18:37 Parainfluenza 2 (PCR) Not detected (NOT DETECT) 04/04/23 18:37 Parainfluenza 3 (PCR) Not detected (NOT DETECT) 04/04/23 18:37 Parainfluenza 4 (PCR) Not detected (NOT DETECT) 04/04/23 18:37 RSV Type A (PCR) Not detected (NOT DETECT) 04/04/23 18:37 RSV Type B (PCR) Not detected (NOT DETECT) 04/04/23 18:37 Entero/Rhino (PCR) Not detected (NOT DETECT) 04/04/23 18:37 SARS-CoV-2 (PCR) Not detected (NOT DETECT) 04/04/23 18:37 Vitals Last Vital Signs Temp 98.0 F 04/06/23 07:32 Pulse 84 04/06/23 07:52 Resp 16 04/06/23 07:52 BP 115/55 04/06/23 07:32 Pulse Ox 97 04/06/23 07:52 O2 Del Method Room Air 04/06/23 07:52 Discharge Plan Discharge Patient Disposition: Home Condition: Stable Prescriptions: New Celebrate B-12 Quick-Melt 1,000-200 mcg tablet,disintegrating 1 tab PO DAILY 90 Days Qty: 90 0RF ciprofloxacin HCl 100 mg tablet 500 mg PO Q12H Qty: 14 0RF Continued aspirin [Adult Low Dose Aspirin] 81 mg tablet,delayed release (DR/EC) 81 mg PO DAILY Symbicort 160-4.5 mcg/actuation HFA aerosol inhaler 2 puff INHALATION BID Qty: 18 3RF prednisone 10 mg tablet 10 mg PO BID Qty: 60 1RF oxycodone 15 mg tablet 15 mg PO QID PRN (Reason: pain) 3 Days Qty: 120 0RF gabapentin 300 mg capsule 300 mg PO TID Qty: 90 3RF lorazepam 1 mg tablet 0.5 - 1 mg PO Q6H PRN (Reason: Severe Nausea) Qty: 30 3RF clopidogrel 75 mg tablet 75 mg PO DAILY Qty: 90 3RF Hold Instructions: Resume on 10/24/22. albuterol sulfate 90 mcg/actuation HFA aerosol inhaler 2 puff INHALATION Q6H PRN (Reason: shortness of breath or wheezing) Qty: 6.7 5RF Xtampza ER 27 mg cap,sprinkl,ER12hr(DONT CRUSH) 27 mg PO BID 30 Days Qty: 60 0RF Rx Instructions: must administer with a meal/food escitalopram oxalate 10 mg tablet 10 mg PO DAILY Qty: 30 2RF prochlorperazine maleate [Compazine] 10 mg tablet 10 mg PO Q4H PRN (Reason: Mild Nausea) Qty: 30 3RF Discharge Orders: Discharge Order (Routine); Ordered 04/06/23 Ordered By: Idris Niño Referrals: Liya Huerta MD [Primary Care Provider] - 04/14/23 1:20 pm Discharge Diet: Regular Discharge Activity: Resume usual activity and Increase activity as tolerated Patient Instructions: Ciprofloxacin (By mouth), Viral Pneumonia (DC), Opioid Safety Activity Restrictions/Additional Instructions: Patient cannot read or write. Please print discharge instructions with pictures and explain instructions thoroughly. Discharge Attestations Time Spent in Discharge Care*: greater than 30 min Specific Discharge Activities: educating patient, discussing with pcp/other providers, discussing with disease case manager/social workers/dc planners, documenting/other paperwork and evaluating patient/reviewing data Status at Discharge: Cognitive status at discharge: cognitively intact , Behavioral status at discharge: cooperative , Functional status at discharge: independent ambulation , Overall status at discharge: patient is back to baseline Quality Metrics Clinical Quality Measures [ No reported AMI, CVA or VTE this stay] Coding Level of Care Code 97368 Total time (in minutes) for Discharge: 60 Diagnoses Pneumonia J18.9 COPD (chronic obstructive pulmonary disease) J44.9 Immunosuppressed due to chemotherapy D84.821; T45.1X5A; Z79.899 Malignant neoplasm of overlapping sites of right lung C34.81 HTN (hypertension) I10 Hypertension type: essential hypertension CAD (coronary artery disease) I25.10 Associated angina: without angina Coronary Disease-Associated Artery/Lesion type: resighini artery [place] vs. transplanted heart: resighini heart
[2023-04-10 18:39] LABS: Fungitell 1-3-B Glucan Assay 103 pg/mL; Interpretation POSITIVE
[2023-04-11 18:58] LABS: Aspergillus AG,EIA,Serum NOT DETECTED; Aspergillus Galactomannan Inde <0.50
== END 2023-04-06 13:25 | disposition home or self-care (01) ==
LOC: ER 20:41 → MEDSURG 21:24
PROVIDERS: Admitting Provider Internal Medicine; Emergency Provider Emergency Medicine; PCP Family Medicine; Visit Provider Student in an Organized Health Care Education/Training Program
DX: R07.9 Chest pain, unspecified (principal); I25.10 Atherosclerotic heart disease of native coronary artery without angina pectoris; J44.9 Chronic obstructive pulmonary disease, unspecified; D84.821 Immunodeficiency due to drugs; T45.1X5A Adverse effect of antineoplastic and immunosuppressive drugs, initial encounter; Z79.899 Other long term (current) drug therapy; C34.81 Malignant neoplasm of overlapping sites of right bronchus and lung; I10 Essential (primary) hypertension; E78.5 Hyperlipidemia, unspecified; Z95.820 Peripheral vascular angioplasty status with implants and grafts; F17.210 Nicotine dependence, cigarettes, uncomplicated; G89.4 Chronic pain syndrome; G89.3 Neoplasm related pain (acute) (chronic); Z79.891 Long term (current) use of opiate analgesic; Z79.02 Long term (current) use of antithrombotics/antiplatelets; I73.9 Peripheral vascular disease, unspecified; J98.4 Other disorders of lung
CPT/HCPCS: 36415; 71045; 71275; 80053; 80061; 81001; 82607; 82746; 83036; 83540; 83550; 83605; 83690; 83735; 83880; 84100; 84145; 84439; 84443; 84481; 84484; 85025; 86140; 86403; 87040; 87070; 87205; 87305; 87449; 87486; 87581; 87633; 87641; 93005; 94640; 94664; 96365; 96366; 96367; 96372; 96375; 99285; C9113; G0378; J1650; J1956; J2185; J2270; J2920; J3370; J3420; J7626; Q9967

== ENCOUNTER 2023-04-16 15:15 | Oncology outpatient (recurring) (ONCR) | payer MEDICARE, SELFPAY ==
[2023-03-31 09:33] VITALS: BMI 20.2
[2023-03-31 09:36] VITALS: BP 100/63; PULSE 79; RESP 17; TEMP 36.6; O2SAT 93
[2023-03-31 09:53] LABS: Basophils % 0.3 %; Eosinophils # 0.1 10^3/uL (0.0-0.8); Eosinophils % 0.8 %; Hematocrit 34.3 % (42.0-52.0); Hemoglobin 10.4 g/dL (11.7-16.6); Lymphocytes # 0.5 10^3/uL (0.8-4.8); Lymphocytes % 5.8 %; Mean Corpuscular HGB Conc 30.3 g/dL (30.0-36.0); Mean Corpuscular Hemoglobin 26.3 pg (28.0-34.0); Mean Corpuscular Volume 86.6 fl (80-94); Mean Platelet Volume 8.8 fL (7.4-10.4); Monocytes # 0.2 10^3/uL (0.2-0.9); Monocytes % 2.7 %; Neutrophils # 6.91 10^3/uL (1.8-7.7); Neutrophils % 89.6 %; Nucleated Red Blood Cells % 0 %; Platelet Count 368 10^3/cmm (130-400); Red Blood Count 3.96 10^6/uL (4.1-5.3); Red Cell Distribution Width 14.8 % (12.1-15.1); White Blood Count 7.7 10^3/uL (4.0-10.0)
[2023-03-31 10:23] LABS: Alanine Aminotransferase 10 U/L (0-41); Albumin Level 3.7 g/dL (3.5-5.2); Alkaline Phosphatase 96 U/L (40-130); Anion Gap 11.8 (5-19); Aspartate Amino Transferase 10 U/L (0-40); Blood Urea Nitrogen 18 mg/dL (8-23); Calcium 9.2 mg/dL (8.5-10.5); Carbon Dioxide 31 mmol/L (22-29); Chloride 99 mmol/L (98-107); Globulin 2.5 g/dL (1.3-4.6); Glomerular Filtration Rate 96.1 mL/min (90-130); Glucose 133 mg/dL (65-115); Osmolality Calculated 288 mOsm/kg (285-295); Potassium 4.8 mmol/L (3.5-5.1); Sodium 137 mmol/L (136-145); Total Bilirubin 0.4 mg/dL (0.15-1.2); Total Protein 6.2 g/dL (6.6-8.7)
[2023-03-31] MEDS: sodium chloride 0.9% 250 ML 100 ML IV (13:02)
[2023-03-31] MEDS: acetaminophen 325 mg Tablet 650 MG PO (13:02)
[2023-03-31] MEDS: diphenhydrAMINE 50 mg/mL SDV 1mL 25 MG IVP (13:06)
[2023-03-31] MEDS: palonosetron 0.25 mg/5 mL SDV IVP (13:09)
[2023-03-31] MEDS: famotidine 20 mg/2 mL INJ IVP (13:11)
[2023-03-31] MEDS: dexamethasone 20 MG in sodium chloride 0.9% 50 ML 188 MG IV (13:17)
[2023-03-31] MEDS: PACLitaxeL 90 MG in sodium chloride 0.9%(non-DEHP) 250 ML 265 MG IV (13:44)
[2023-03-31] MEDS: CARBOplatin 210 MG in sodium chloride 0.9% 500 ML 521 MG IV (15:00)
[2023-03-31 16:25] VITALS: BP 108/67; PULSE 77; RESP 16; TEMP 36.1
[2023-04-07 08:43] VITALS: BMI 20.2
[2023-04-07 08:44] VITALS: BP 125/81; PULSE 95; RESP 18; TEMP 35.8; O2SAT 98
[2023-04-07 08:59] LABS: Eosinophils # 0.1 10^3/uL (0.0-0.8); Eosinophils % 2.6 %; Hematocrit 32.1 % (42.0-52.0); Hemoglobin 9.9 g/dL (11.7-16.6); Lymphocytes # 0.5 10^3/uL (0.8-4.8); Lymphocytes % 14.7 %; Mean Corpuscular HGB Conc 30.8 g/dL (30.0-36.0); Mean Corpuscular Hemoglobin 26.5 pg (28.0-34.0); Mean Corpuscular Volume 86.1 fl (80-94); Mean Platelet Volume 8.8 fL (7.4-10.4); Monocytes # 0.2 10^3/uL (0.2-0.9); Monocytes % 5.2 %; Neutrophils # 2.36 10^3/uL (1.8-7.7); Neutrophils % 76.8 %; Nucleated Red Blood Cells % 0 %; Platelet Count 249 10^3/cmm (130-400); Red Blood Count 3.73 10^6/uL (4.1-5.3); Red Cell Distribution Width 15.8 % (12.1-15.1); White Blood Count 3.1 10^3/uL (4.0-10.0)
[2023-04-07 09:26] LABS: Alanine Aminotransferase 12 U/L (0-41); Albumin Level 3.6 g/dL (3.5-5.2); Alkaline Phosphatase 79 U/L (40-130); Aspartate Amino Transferase 14 U/L (0-40); Blood Urea Nitrogen 24 mg/dL (8-23); Calcium 8.8 mg/dL (8.5-10.5); Carbon Dioxide 25 mmol/L (22-29); Chloride 104 mmol/L (98-107); Creatinine Clr Calc Pharmacy 89.3605; Globulin 2.2 g/dL (1.3-4.6); Glomerular Filtration Rate 112.1 mL/min (90-130); Glucose 121 mg/dL (65-115); Osmolality Calculated 291 mOsm/kg (285-295); Sodium 138 mmol/L (136-145); Total Bilirubin 0.5 mg/dL (0.15-1.2); Total Protein 5.8 g/dL (6.6-8.7)
[2023-04-07 09:47] LABS: Anion Gap 12.9 (5-19); Potassium 3.9 mmol/L (3.5-5.1)
[2023-04-07] MEDS: sodium chloride 0.9% 500 ML IV (10:25)
[2023-04-07 10:26] VITALS: RESP 18
[2023-04-07] MEDS: morphine 4 mg/mL SDV 1 mL SUBCUT ×2 (10:26→12:07)
[2023-04-07] MEDS: acetaminophen 325 mg Tablet 650 MG PO (11:11)
[2023-04-07] MEDS: sodium chloride 0.9% 250 ML 75 ML IV (11:11)
[2023-04-07] MEDS: dexamethasone 20 MG in sodium chloride 0.9% 50 ML 188 MG IV (11:13)
[2023-04-07] MEDS: famotidine 20 mg/2 mL INJ IVP (11:14)
[2023-04-07] MEDS: palonosetron 0.25 mg/5 mL SDV IVP (11:15)
[2023-04-07] MEDS: diphenhydrAMINE 50 mg/mL SDV 1mL 25 MG IVP (11:16)
[2023-04-07] MEDS: PACLitaxeL 90 MG in sodium chloride 0.9%(non-DEHP) 250 ML 265 MG IV (11:37)
[2023-04-07 12:07] VITALS: RESP 16; O2SAT 98
[2023-04-07] MEDS: CARBOplatin 240 MG in sodium chloride 0.9% 500 ML 524 MG IV (12:55)
[2023-04-07 14:15] VITALS: BP 124/71; PULSE 72; RESP 17; TEMP 36.8; O2SAT 96
[2023-04-14 08:14] VITALS: BMI 19.9
[2023-04-14 08:15] VITALS: BP 94/57; PULSE 90; RESP 18; TEMP 36; O2SAT 88
[2023-04-14 08:29] LABS: Basophils % 0.8 %; Eosinophils # 0.1 10^3/uL (0.0-0.8); Eosinophils % 3.3 %; Hematocrit 32.1 % (42.0-52.0); Hemoglobin 9.8 g/dL (11.7-16.6); Lymphocytes # 0.4 10^3/uL (0.8-4.8); Lymphocytes % 17.9 %; Mean Corpuscular HGB Conc 30.5 g/dL (30.0-36.0); Mean Corpuscular Hemoglobin 26.3 pg (28.0-34.0); Mean Corpuscular Volume 86.3 fl (80-94); Monocytes # 0.2 10^3/uL (0.2-0.9); Monocytes % 7.1 %; Neutrophils # 1.69 10^3/uL (1.8-7.7); Neutrophils % 70.5 %; Nucleated Red Blood Cells % 0 %; Platelet Count 242 10^3/cmm (130-400); Red Blood Count 3.72 10^6/uL (4.1-5.3); Red Cell Distribution Width 15.9 % (12.1-15.1); White Blood Count 2.4 10^3/uL (4.0-10.0)
[2023-04-14 08:47] LABS: Alanine Aminotransferase 13 U/L (0-41); Albumin Level 3.4 g/dL (3.5-5.2); Alkaline Phosphatase 89 U/L (40-130); Blood Urea Nitrogen 19 mg/dL (8-23); Calcium 8.4 mg/dL (8.5-10.5); Carbon Dioxide 29 mmol/L (22-29); Chloride 102 mmol/L (98-107); Globulin 2.5 g/dL (1.3-4.6); Glucose 135 mg/dL (65-115); Osmolality Calculated 292 mOsm/kg (285-295); Sodium 139 mmol/L (136-145); Total Bilirubin 0.3 mg/dL (0.15-1.2); Total Protein 5.9 g/dL (6.6-8.7)
[2023-04-14 08:48] LABS: Anion Gap 13.5 (5-19); Aspartate Amino Transferase 17 U/L (0-40); Potassium 5.5 mmol/L (3.5-5.1)
[2023-04-14] MEDS: sodium chloride 0.9% 250 ML 75 ML IV (10:03)
[2023-04-14] MEDS: diphenhydrAMINE 50 mg/mL SDV 1mL 25 MG IVP (10:03)
[2023-04-14] MEDS: acetaminophen 325 mg Tablet 650 MG PO (10:04)
[2023-04-14] MEDS: famotidine 20 mg/2 mL INJ IVP (10:04)
[2023-04-14] MEDS: dexamethasone 20 MG in sodium chloride 0.9% 50 ML 188 MG IV (10:05)
[2023-04-14] MEDS: palonosetron 0.25 mg/5 mL SDV IVP (10:05)
[2023-04-14] MEDS: PACLitaxeL 90 MG in sodium chloride 0.9%(non-DEHP) 250 ML 265 MG IV (10:33)
[2023-04-14] MEDS: CARBOplatin 270 MG in sodium chloride 0.9% 500 ML 527 MG IV (11:38)
[2023-04-14 12:50] VITALS: BP 106/61; PULSE 69; RESP 18; TEMP 36.9; O2SAT 92
--- NOTE | 2023-04-14 13:39 | ONCRAD TMN_ITS ---
Radiation Oncology Weekly Treatment Management Patient: Heidi Hudson MR#: [id number] : 1955> Attending Physician: Alexandr Drake Date of Service: 04/14/2023 Referring Physician(s) : Maynor Kirkpatrick M.D. Diagnosis: C34.10 - Malignant neoplasm of upper lobe, unspecified bronchus or lung, Diagnosed 01/23/2023 (Active) Stage IIIC, T3, N3, M0 Radiotherapy to date: Course: Lung 2022, Treatment Site: RT [id number], Ref. ID: [id number], Energy: 6X, Dose/Fx (cGy): 200, #Fx: , Dose Correction (cGy): 0, Total Dose (cGy): 2,600, Start Date: 03/24/2023, Elapsed Days: Reason for visit: The patient is being seen today as part of their regularly scheduled weekly on treatment visits to assess for acute toxicities from radiotherapy. Review of Systems: Doing well. Nosxs. Still smoking 2/day. Lives alone. 37 year old grandson visits him when he gets off of work. Eating and swallowing ok. Vital Signs: Performed on 04/14/2023 1:07 PM BMI - 19.945 kg/m2, Height - 71 in, Weight - 143 lbs, Temperature - 98.4 f, Pulse - 69 /min, Respiration - 18 /min, O2 Sat - 92 % (low), Pain - 0, Fatigue - 0 and BP - 106/ 61 mm(hg)(/low). Physical Exam: Imaging: Radiation therapy imaging related to accurate target localization (i.e. KV, MV and CBCT) was reviewed. Appropriate changes, if any, were made to ensure treatment accuracy. Plan: Good tolerance of treatment. Continue as planned. Discussed need for complete smoking cessation. Signed by: Alexandr Drake 04/14/2023 1:37:12 PM
== END 2023-04-16 23:59 | disposition home or self-care (01) ==
PROVIDERS: Internal Medicine Medical Oncology; Nurse Practitioner Family; PCP Family Medicine; Visit Provider Internal Medicine Medical Oncology
DX: Z51.0 Encounter for antineoplastic radiation therapy (principal); C34.81 Malignant neoplasm of overlapping sites of right bronchus and lung; C78.1 Secondary malignant neoplasm of mediastinum; C77.8 Secondary and unspecified malignant neoplasm of lymph nodes of multiple regions; C79.51 Secondary malignant neoplasm of bone
CPT/HCPCS: 77336; 77386; 80053; 85025; 96361; 96365; 96366; 96367; 96372; 96375; 96413; 96417; 99024; 99214; 99215; J1100; J1200; J1642; J2270; J2469; J3490; J7040; J7050; J9045; J9267

== ENCOUNTER 2023-04-25 09:04 | Inpatient (IN) | payer MEDICARE, SELFPAY ==
[2023-04-25] VITALS (8 sets, daily range): BP systolic 117–134; BP diastolic 62–77; PULSE 79–106; RESP 12–21; TEMP 36.8–37.7; O2SAT 95–98; BMI 20.2
--- NOTE | 2023-04-25 09:06 | ECG_ITS ---
[facility] Test Date: 2023-04-25 Pat Name: Karthik Gordon Department: Room: Gender: Male Security Guard: : 1955 Requested By: Garrett Vergara Order Number: [id number] Patti MD: Jd Justice M.D. Measurements Intervals [place] Rate: 102 P: 57 WA: 152 QRS: 73 QRSD: 83 T: 78 QT: 326 QTc: 425 Interpretive Statements SINUS TACHYCARDIA MINIMAL ST DEPRESSION [0.025+ mV ST DEPRESSION] Compared to ECG 04/05/2023 00:02:09 ST (T wave) deviation now present Sinus rhythm no longer present Electronically Signed On 04-25-2023 14:41:42 CDT by Jd Justice M.D. [id number]
--- NOTE | 2023-04-25 09:11 | XRR_ITS ---
PROCEDURE INFORMATION: Exam: XR Chest Exam date and time: 04/25/2023 10:09 AM Age: 67 years old Clinical indication: Pain; Chest pressure; Additional info: Chest pain.No history of trauma or recent surgery is provided. TECHNIQUE: Imaging protocol: Radiologic exam of the chest. 1image(s) are provided. Views: 1 view. COMPARISON: 1. CR (CHEST, ) 04/04/2023 5:[address] angio chest PE protcl [id number] 04/04/2023 7:05 PM FINDINGS: Tubes, catheters and devices: The right PICC line remains. There is similar right shoulder prosthetic hardware positioning. Lungs: There are chronic granulomatous related changes present. There is some subsegmental atelectasis versus post inflammatory reticulonodular scarring demonstrated. There is history of a cavitary mass with similar overall opacification about the right midlung zone perihilar margin. The density may be subtly increased. No lobar consolidation is appreciated. Pleural spaces: There is skin fold, fissure averaging demonstrated. No significant pleural effusion or interval pneumothorax is appreciated. Heart/Mediastinum: The cardiomediastinal silhouette is upper normal in size.This can be seen with central averaging as well as marc enlargement.No cardiac decompensation is appreciated. Diaphragm: The hemidiaphragms are symmetric. Bones/joints: There are some chronic appearing rib deformities present. Soft tissues: No radiopaque foreign body or subcutaneous emphysema is appreciated. There appears to be some chest wall nipple shadow averaging bilaterally relatively symmetric. Other findings: There is some mild chronic air trapping appearance overall similar. No other significant interval changes are appreciated. XR/XR chest 1V portable [id number] IMPRESSION: There is some similar masslike appearance about the rib midlung zone. Overall no interval lobar type consolidation or cardiac decompensation is appreciated.
[2023-04-25] MEDS: aspirin 81 mg Chew Tablet 324 MG PO (09:25)
--- NOTE | 2023-04-25 09:35 | ED_ITS ---
HPI - Chest Pain General: Chief Complaint: Chest Pain Stated Complaint: chest pain Time Seen by Provider: 04/25/23 09:11 Source: patient Mode of arrival: ambulatory History of Present Illness: 59-year-old male presents emergency room complaining of chest pain and increasing cough. Patient was recently diagnosed with a pleural-based right upper lobe posterior lung cancer eroding into the eighth and ninth ribs she has had 3 rounds of chemotherapy. He denies any fever sweats or chills. No vomiting no diarrhea. Denies hemoptysis or productive cough. MD complaint: chest pain Onset (ago): hour(s) Onset: during rest Pain radiation: none Relieving factors: nothing Exacerbating factors: nothing Associated symptoms: Reports dyspnea; Deny abdominal pain, diaphoresis, fever(s), leg edema, nausea, palpitations, sense of impending doom, syncope or vomiting Review of Systems Const: Denies: fever(s) or diaphoresis Card: Reports: chest pain; Denies: palpitations, irregular heart rhythm, edema, swelling of feet/ankles or syncope Resp: Reports: dyspnea, non-productive cough and wheezing GI: Denies: abdominal pain, nausea or vomiting : Denies: flank pain, dysuria, urinary frequency or urinary urgency Skin/Breast: Denies: rash or pruritus PFSH ED PFSH: Medical History (Updated 04/26/23 @ 07:53 by Garrett Warner DO) Bilateral direct inguinal hernia CAD (coronary artery disease) Cavitary lesion of lung COPD (chronic obstructive pulmonary disease) Erectile 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 HTN (hypertension) Hyperlipidemia Non-small cell lung cancer PAD (peripheral artery disease) Tobacco abuse Surgical History History of angioplasty of peripheral vessel History of chest tube placement History of laparoscopic cholecystectomy History of right shoulder replacement Status post peripheral artery angioplasty with insertion of stent Family History Father Diabetes Brother , AGE 60 CAD (coronary artery disease) Myocardial infarction Mother Diabetes Grandfather Diabetes MATERNAL Grandmother Diabetes MATERNAL Social History Smoking and tobacco status: current every day smoker cigarettes Packs smoked per day: 1 Years cigarettes smoked: 51 [ Other cigarette details: Started at age 16] Alcohol intake: former Substance/Drug Use: current Substance/Drug use frequency: few times a week Household members: none Marital status: Number of children: 1 service: No 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 kings needs: No Physical Exam Const: GENERAL APPEARANCE: cooperative and comfortable ORIENTATION/CONSCIOUSNESS: Yes awake, Yes oriented to person, Yes oriented to place and Yes oriented to time HENMT: COMMON NORMALS: normocephalic, atraumatic and hearing grossly normal bilaterally HEAD & SCALP: normocephalic and atraumatic Resp: COMMON NORMALS: normal respiratory effort, No retractions and No use of accessory muscles AUSCULTATION: rhonchi Cardio: COMMON NORMALS: regular rate, regular rhythm and No murmurs present (Cardio) RATE: regular rate RHYTHM: regular rhythm GI: COMMON NORMALS: Soft to palpation and No hepatosplenomegaly present AUSCULTATION: Yes normoactive bowel sounds PALPATION: Yes Soft to palpation, No Tenderness to palpation present (GI), No Guarding due to palpation present (GI) and Yes No hepatosplenomegaly present Extremity: COMMON NORMALS: normal to inspection, capillary refill normal, no clubbing, cyanosis or edema, no calf tenderness and no pedal edema Neuro: SENSORIUM/ORIENTATION: Yes oriented to person, Yes oriented to place and Yes oriented to time Skin: COMMON NORMALS: no rashes or lesions noted GENERAL SKIN EXAM: no rashes or lesions noted Course Vital Signs: Vital signs: Vital Signs Temperature 99.4 F 04/26/23 03:38 Pulse Rate 77 04/26/23 06:00 Respiratory Rate 18 04/26/23 04:10 Blood Pressure 115/71 04/26/23 03:38 Pulse Oximetry 94 04/26/23 04:10 Oxygen Delivery Me thod Room Air 04/25/23 17:08 MDM - Chest Pain Medical Decision Making Patient presents with complaints of fever while in the course of chemotherapy w orsening pleuritic chest pain likely from the tumor and with spread to the bone. He is neutropenic as well. Was complaining of some abdominal pain CT shows significant amount of retained stool. Will admit cultures done patient has been started on Fortaz, discussed with hospitalist orders written. Medical Records I reviewed the patient's medical records. Lab Data I reviewed the patient's lab results. 04/26/23 05:24 04/26/23 05:24 Radiology Impressions Chest X-Ray 04/25/23 09:11 IMPRESSION: There is some similar masslike appearance about the rib midlung zone. Overall no interval lobar type consolidation or cardiac decompensation is appreciated. Abdomen/Pelvis CT 04/25/23 11:25 IMPRESSION: The bowel gas pattern appears nonobstructive overall as there is colonic gas present. There is however a significant amount of stool present indicative of constipation and possible impaction. There appears to be some corresponding distal small bowel dilatation for example of the distal ileal level with some small bowel feces suggestive of overall slow flow and decreased transit. Laboratory Results WBC 1.40 10^3/uL (3.29-11.43) L 04/25/23 09:36 RBC 3.15 10^6/uL (3.85-5.65) L 04/25/23 09:36 Hgb 8.50 g/dL (11.27-16.99) L 04/25/23 09:36 Hct 28.0 % (37-53) L 04/25/23 09:36 MCV 88.9 fl (82-101) 04/25/23 09:36 MCH 27.0 pg (27-33) 04/25/23 09:36 MCHC 30.4 g/dL (30-55) 04/25/23 09:36 RDW 19.6 % (12.1-15.1) H 04/25/23 09:36 Plt Count 188 10^3/cmm (157-399) 04/25/23 09:36 MPV 9.0 fL (7.4-10.4) 04/25/23 09:36 Neut % (Auto) 67.9 % 04/25/23 09:36 Lymph % (Auto) 12.9 % 04/25/23 09:36 [place] % (Auto) 16.4 % 04/25/23 09:36 Eos % (Auto) 1.4 % 04/25/23 09:36 Baso % (Auto) 0.7 % 04/25/23 09:36 Neut # (Auto) 0.95 10^3/uL (1.8-7.7) L* 04/25/23 09:36 Lymph # (Auto) 0.2 10^3/uL (0.8-4.8) L 04/25/23 09:36 [place] # (Auto) 0.2 10^3/uL (0.2-0.9) 04/25/23 09:36 Eos # (Auto) 0.0 10^3/uL (0.0-0.8) 04/25/23 09:36 Baso # (Auto) 0.0 10^3/uL (0.0-0.1) 04/25/23 09:36 Nucleated RBC % (auto) 0 % 04/25/23 09:36 Nucleated RBCs # 0.0 /100WBC 04/25/23 09:36 Sodium 136 mmol/L (136-145) 04/25/23 09:36 Potassium 4.1 mmol/L (3.5-5.1) 04/25/23 09:36 Chloride 101 mmol/L (98-107) 04/25/23 09:36 Carbon Dioxide 25 mmol/L (22-29) 04/25/23 09:36 Anion Gap 14.1 (5-19) 04/25/23 09:36 BUN 19 mg/dL (8-23) 04/25/23 09:36 Creatinine 0.6 mg/dL (0.7-1.2) L 04/25/23 09:36 GFR Calculation 134.0 mL/min (90-130) H 04/25/23 09:36 Glucose 93 mg/dL (65-115) 04/25/23 09:36 Calculated Osmolality 284 mOsm/kg (285-295) L 04/25/23 09:36 Lactic Acid 1.6 mmol/L (0.5-2.2) 04/25/23 09:36 Calcium 8.6 mg/dL (8.5-10.5) 04/25/23 09:36 Total Bilirubin 0.6 mg/dL (0.15-1.2) 04/25/23 09:36 AST 9 U/L (0-40) 04/25/23 09:36 ALT 9 U/L (0-41) 04/25/23 09:36 Alkaline Phosphatase 102 U/L (40-130) 04/25/23 09:36 Troponin T Baseline 17 ng/L (0-15) H 04/25/23 09:36 Troponin T 120 Minute 18.41 ng/L (0-15) H 04/25/23 11:43 Delta Troponin T 1.41 ABS# (0-10) 04/25/23 11:43 Total Protein 5.7 g/dL (6.6-8.7) L 04/25/23 09:36 Albumin 3.7 g/dL (3.5-5.2) 04/25/23 09:36 Globulin 2.0 g/dL (1.3-4.6) 04/25/23 09:36 Discharge Plan Discharge Patient Disposition: Admitted As Inpatient Admit Provider: Idris Niño Clinical Impression: Lung cancer metastatic to bone, Immunosuppressed due to chemotherapy, Cancer related pain, Neutropenia, Fever, Constipation Condition: Stable Coding Level of Care Code ED Insulation Power Unit Tender for Kvng Smith
[2023-04-25 09:44] LABS: Basophils % 0.7 %; Eosinophils % 1.4 %; Lymphocytes # 0.2 10^3/uL (0.8-4.8); Lymphocytes % 12.9 %; Mean Corpuscular HGB Conc 30.4 g/dL (30-55); Mean Corpuscular Volume 88.9 fl (82-101); Monocytes # 0.2 10^3/uL (0.2-0.9); Monocytes % 16.4 %; Neutrophils % 67.9 %; Nucleated Red Blood Cells % 0 %; Platelet Count 188 10^3/cmm (157-399); Red Blood Count 3.15 10^6/uL (3.85-5.65); Red Cell Distribution Width 19.6 % (12.1-15.1)
[2023-04-25 09:50] LABS: Neutrophils # 0.95 10^3/uL (1.8-7.7)
[2023-04-25] MEDS: ondansetron 2 mg/ML SDV 2 mL 4 MG IVP (09:52)
[2023-04-25] MEDS: morphine 4 mg/mL SDV 1 mL IVP ×2 (09:52→14:05)
[2023-04-25 10:02] LABS: Troponin(5th) Baseline 17 ng/L (0-15)
[2023-04-25 10:04] LABS: Alanine Aminotransferase 9 U/L (0-41); Albumin Level 3.7 g/dL (3.5-5.2); Alkaline Phosphatase 102 U/L (40-130); Anion Gap 14.1 (5-19); Aspartate Amino Transferase 9 U/L (0-40); Blood Urea Nitrogen 19 mg/dL (8-23); Calcium 8.6 mg/dL (8.5-10.5); Carbon Dioxide 25 mmol/L (22-29); Chloride 101 mmol/L (98-107); Creatinine Clr Calc Pharmacy 89.3605; Glucose 93 mg/dL (65-115); Lactic Sepsis W/Reflex 1.6 mmol/L (0.5-2.2); Osmolality Calculated 284 mOsm/kg (285-295); Potassium 4.1 mmol/L (3.5-5.1); Sodium 136 mmol/L (136-145); Total Bilirubin 0.6 mg/dL (0.15-1.2); Total Protein 5.7 g/dL (6.6-8.7)
--- NOTE | 2023-04-25 11:25 | CTR_ITS ---
PROCEDURE INFORMATION: Exam: CT Abdomen And Pelvis With Contrast Exam date and time: 04/25/2023 12:01 PM Age: 67 years old Clinical indication: Abdominal pain; Prior surgery; Surgery date: 6+ months; Surgery type: Chest tube gb stents RT shoulder; Additional info: Abd pain.No history of trauma or recent surgery is provided. TECHNIQUE: Imaging protocol: Computed tomography of the abdomen and pelvis with contrast. 214image(s) are provided. Radiation optimization: All CT scans at this facility use at least one of these dose optimization techniques: automated exposure control; mA and/or kV adjustment per patient size (includes targeted exams where dose is matched to clinical indication); or iterative reconstruction. Contrast material: OMNI 350; Contrast volume: 100 ml; Contrast route: INTRAVENOUS (IV); Other technique: Axial images are available with sagittal and coronal reconstruction views. Automated dose exposure control is utilized. The DLP is 392.76. REPORTING DATA: Count of CT and Cardiac NM exams in prior 12 months: This patient has received 6 known CTs and 0 known cardiac nuclear medicine studies in the 12 months prior to the current study. COMPARISON: 1. CT abdomen pelvis w con* [id number] 12/13/2022 5:[address] angio chest PE protcl [id number] 04/04/2023 7:05 PM. PET-CT report of 12/27/2022. RADIATION DOSE METRICS: Total DLP (mGy-cm): 392.76 FINDINGS: Tubes, catheters and devices: There is some vascular stent type material present of the legs similar. Lungs: No lobar consolidation is appreciated. There are chronic lung base granulomatous related changes including on the left similar overall. There is some subsegmental atelectasis versus post inflammatory scarring demonstrated. Liver: There appears to be some mild hepatic steatosis. There are some hepatic granulomatous calcifications present. Gallbladder and bile ducts: Cholecystectomy clips are present. Pancreas: No pancreatic ductal dilatation or calculus is currently appreciated. Spleen: There are multiple splenic granulomatous calcification similar overall. Adrenal glands: Unremarkable. Kidneys and ureters: There is homogeneous renal parenchymal enhancement with no interval radiopaque obstructive calculus or hydronephrosis appreciated. There are similar multifocal nephrogenic fluid dense cystic related changes similar overall in orientation and distribution. Stomach and bowel: Some aspects of the colon are undistended. This may also be peristaltic related.There is abundant stool present limiting mucosal detail evaluation.The bowel gas pattern appears nonobstructive. There is a small sliding-type hiatal hernia demonstrated with slight gastroesophageal fold thickening. There are some prominent small bowel loops overall including at the C-loop as well as the distal ileum. This latter area appears somewhat dilated for example at approximately 6 cm. No definite obstructive changes of the ileocecal junction are currently appreciated. There is some sigmoid redundancy demonstrated overall similar. Appendix: There is an unremarkable overall appearance of the appendix demonstrated. Intraperitoneal space: No free air or free fluid collections are appreciated. Vasculature: There are atherosclerotic aortic calcifications with no interval aortic saccular aneurysmal dilatation or intimal irregularity appreciated. Aortic branch vessel enhancement appears overall demonstrated. There are chronic atherosclerotic changes also with some narrowing of the external iliac arteries left more so than right albeit similar overall. Lymph nodes: There are subcentimeter predominant para-aortic and mesenteric lymph nodes overall present. Urinary bladder: The bladder contours appear unremarkable overall in the interval. Reproductive: There appears to be some slight prostate hypertrophy and calcification. Bones/joints: Osseous alignment is maintained.No interval displaced fracture or dislocation is appreciated. There is some chronic degeneration of the lumbar spine disc spaces similar overall. There are some chronic appearing rib deformities present. Soft tissues: No radiopaque foreign body or subcutaneous emphysema is appreciated. Other findings: There is some motion artifact present. CT/CT abdomen pelvis w con* [id number] IMPRESSION: The bowel gas pattern appears nonobstructive overall as there is colonic gas present. There is however a significant amount of stool present indicative of constipation and possible impaction. There appears to be some corresponding distal small bowel dilatation for example of the distal ileal level with some small bowel feces suggestive of overall slow flow and decreased transit.
[2023-04-25 12:05] LABS: Troponin 5 2HR 18.41 ng/L (0-15)
[2023-04-25] MEDS: iohexol 350 mg/mL 500 mL Btl (per mL) IV (12:05)
[2023-04-25 12:34] LABS: Troponin 5 2HR Delta 1.41 ABS# (0-10)
--- NOTE | 2023-04-25 12:40 | ECG_ITS ---
[facility] Test Date: 2023-04-25 Pat Name: Karthik Gordon Department: Room: Gender: Male Adjustment Examiner: : 1955 Requested By: Garrett Vergara Order Number: [id number] Patti MD: Jd Justice M.D. Measurements Intervals [place] Rate: 80 P: 75 TN: 174 QRS: 78 QRSD: 86 T: 79 QT: 362 QTc: 420 Interpretive Statements SINUS RHYTHM Compared to ECG 04/25/2023 09:06:59 Sinus tachycardia no longer present ST (T wave) deviation no longer present Electronically Signed On 04-25-2023 14:44:48 CDT by Jd Justice M.D. [id number]
[2023-04-25] MEDS: cefepime 1,000 MG in sodium chloride 0.9% (plus) 50 ML 100 MG IV ×2 (13:01→22:02)
[2023-04-25] MEDS: sodium chloride 0.9% 1,000 ML 999 ML IV (14:05)
[2023-04-25] MEDS: D5-NS 0.45% + KCL 20 mEq 20 MEQ/1,000 ML BAG 100 MEQ IV (16:09)
--- NOTE | 2023-04-25 17:11 | P.HP_ITS ---
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 Patient states he has been feeling weak and sick for last 1 week. Chemotherapy was not done last week because of pancytopenia. He denies getting any shocks to increase or improve his numbers. Denies any nausea, vomiting, headache. States last bowel movement was yesterday. Pain getting worse when taking a deep breath. Has subjective feeling of fever though has not checked himself. Denies any increased cough or expectoration. Denies any bleeding. In the ER he was found to be pancytopenic along with neutropenia hence blood cultures were taken and started on IV cefepime and hospitalist service was requested for further evaluation and management. Review of Systems General: Reports: 10 or more systems reviewed and unremarkable except in HPI and below Const: Denies: fever(s), chills, body aches, change in appetite, change in weight, malaise, night sweats, diaphoresis, change in sleep pattern, daytime sleepiness or snoring Eyes: Denies: change in vision, blurry vision, photophobia, eye discomfort or eye discharge ENMT: Denies: throat pain, enlarged tonsils, hoarseness, mouth pain, oral sores, dry mouth, tinnitus, nasal congestion or post nasal drip Card: Denies: chest pain, palpitations, irregular heart rhythm, edema, swelling of feet/ankles, lightheadedness, syncope, pre-syncope, dyspnea on exertion, orthopnea, leg pain with exertion or acrocyanosis Resp: Denies: dyspnea, productive cough, non-productive cough, wheezing, stridor, pain on inspiration, change in phlegm color, hemoptysis or chest congestion GI: Denies: abdominal pain, nausea, vomiting, hematemesis, coffee ground emesis, dysphagia, heartburn, diarrhea, constipation, bloating, GI cramping, change in bowel habits, pain on defecation, hematochezia or melena : Denies: flank pain, difficulty urinating, dysuria, urinary frequency, urinary urgency, urinary hesitancy, urinary dribbling, difficulty starting urina tion, change in urine stream, nocturia or hematuria Musc: Denies: neck pain, back pain, extremity pain, joint pain, joint swelling, joint redness, joint stiffness or limited range of motion Neuro: Denies: headache(s), numbness in extremities, weakness in extremities, sensory changes, lack of coordination, difficulty walking, frequent falls, dizziness, vertigo, confusion, Slurred speech present, difficulty communicating thoughts or seizure-like activity Psych: Denies: anxiety, depression, mood swings, panic attacks, hopelessness or irritability Endo: Denies: polyuria, polydipsia, tired all the time, cold intolerance, excessive sweating, flushing or heat intolerance Regis/Lymph: Denies: easy bruising or easy bleeding All/Imm: Denies: tongue swelling, facial swelling or acute wheezing Medications/Allergies Home Medications Medication Instructions Recorded Confirmed Last Taken Type aspirin 81 mg tablet,delayed 81 mg PO DAILY 10/04/19 04/25/23 04/04/23 08:00 History release (Adult Low Dose Aspirin) budesonide-formoterol HFA 160 2 puff inhalation BID #18 grams 06/04/21 04/25/23 03/12/23 Rx mcg-4.5 mcg/actuation aerosol inhaler (Symbicort) clopidogrel 75 mg tablet 75 mg PO DAILY #90 tabs 09/19/21 04/25/23 04/04/23 08:0 0 Rx albuterol sulfate 90 mcg/actuation 2 puff inhalation Q6H PRN 05/26/22 04/25/23 03/12/23 Rx aerosol inhaler shortness of breath or wheezing #6.7 grams lorazepam 1 mg tablet 0.5 - 1 mg PO Q6H PRN Severe 03/24/23 04/25/23 04/04/23 08:00 Rx Nausea #30 tabs escitalopram oxalate 10 mg tablet 10 mg PO DAILY #30 tabs 04/02/23 04/25/23 04/04/23 08:00 Rx morphine 30 mg tablet,extended 30 mg PO Q12H 30 days #60 tabs 04/07/23 04/25/23 Unknown Rx release pantoprazole 40 mg tablet,delayed 40 mg PO DAILY #90 tabs 04/14/23 04/25/23 Unknown Rx release morphine 15 mg immediate release 15 mg PO Q6H PRN pain 14 days #60 04/23/23 04/25/23 Unknown Rx tablet tabs Allergies Allergy/AdvReac Type Severity Reaction Status Date / Time Penicillins Allergy Unknown ALGY-Swell Verified 04/23/23 14:11 Lip/Tongue/Throat PFSH Acute PFSH: Medical History (Updated 04/25/23 @ 17:22 by Idris Niño MD) Bilateral direct inguinal hernia CAD (coronary artery disease) Cavitary lesion of lung COPD (chronic obstructive pulmonary disease) Erectile 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 HTN (hypertension) Hyperlipidemia Non-small cell lung cancer PAD (peripheral artery disease) Tobacco abuse Surgical History History of angioplasty of peripheral vessel History of chest tube placement History of laparoscopic cholecystectomy History of right shoulder replacement Status post peripheral artery angioplasty with insertion of stent Family History Father Diabetes Brother , AGE 60 CAD (coronary artery disease) Myocardial infarction Mother Diabetes Grandfather Diabetes MATERNAL Grandmother Diabetes MATERNAL Social History Smoking and tobacco status: current every day smoker cigarettes Packs smoked per day: 1 Years cigarettes smoked: 51 [ Other cigarette details: Started at age 16] Alcohol intake: former Substance/Drug Use: current Substance/Drug use frequency: few times a week Household members: none Marital status: Number of children: 1 service: No 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 kings needs: No Vitals/I&O/Wt Last Vital Signs Temp 98.4 F 04/25/23 09:07 Pulse 79 04/25/23 14:56 Resp 18 04/25/23 14:56 BP 117/69 04/25/23 14:56 Pulse Ox 97 04/25/23 14:56 O2 Del Method Room Air 04/25/23 15:26 Weight last 48 hrs Weight 65.771 kg Physical Exam Narrative: General: No acute distress, AO x3 dehydrated, chronically sick appearing HEENT: PERRLA, pupils bilaterally equal and reactive Chest: Bronchial breath sounds all over lung fowler, decreased air entry on the right side, tenderness on right chest wall CVS: S1-S2 regular, no murmurs, no tachycardia, no gallops, no rubs Abdomen: Soft, nontender, no organomegaly, bowel sounds present sluggish Neuro: No focal deficits, no facial deformity, AO x3, power 5/5 in all limbs Data 04/25/23 09:36 04/25/23 09:36 Micro: Microbiology 04/25/23 09:46 Blood Culture - Preliminary Blood SPECIMEN COLLECTED 04/25/23 09:45 Blood Culture - Preliminary Blood SPECIMEN COLLECTED A&P Assessment and plan (1) Malignant neoplasm of overlapping sites of right lung: (2) Immunosuppressed due to chemotherapy: (3) Cancer related pain: (4) Neutropenia: (5) Constipation: (6) Cavitary lesion of lung: Plan 67-year-old gentleman with past medical history of lung cancer on chemoradiation therapy presents to the ER because of right-sided chest pain getting worse overnight, generalized myalgias found to be neutropenic. Neutropenia: Has right-sided chest pain which is most likely cancer related. Ca nnot rule out underlying pneumonia. Appreciate chest x-ray. CT abdomen pelvis results appreciated for constipation. Blood cultures taken in the ER. On previous admission was found to have galactogram and serum antigen positive. He does have lung cavity. No concerns for fungal infection for now. Check procalcitonin, MRSA swab negative earlier this month, urinalysis, sputum culture, respiratory viral panel, Urine Legionella, bacterial antigen. For now empirically start patient on IV cefepime 1 g every 12 hourly, Levaquin 750 mg oral daily for double gram-negative. Neutropenic precautions. Cancer-related pain: For now continue with home dose of morphine extended release 30 mg every 12 hourly, immediate release 15 mg every 6 hours as needed. Lidocaine patch. Constipation: IV hydration with normal saline at 75 cc/h. Aggressive bowel regimen with milk of magnesia daily, senna Colace twice daily along with Fleet enema. If does not improve will most likely have to do manual disimpaction. Full code Regular diet Heparin 5000 every 12 hourly for DVT prophylaxis Protonix for PUD prophylaxis. Attestations Medical Necessity Statement*: Admission for more than 2 midnights for management of neutropenic fever in a patient on chemotherapy for lung cancer, cancer-related pain, constipation Diagnoses Malignant neoplasm of overlapping sites of right lung C34.81 Immunosuppressed due to chemotherapy D84.821; T45.1X5A; Z79.899 Cancer related pain G89.3 Neutropenia D70.9 Constipation K59.00 Cavitary lesion of lung J98.4
[2023-04-25] MEDS: morphine ER (12 HR) 30 mg tablet PO (17:18)
[2023-04-25 17:30] LABS: Troponin 5 6HR 15.42 ng/L (0-15)
[2023-04-25 17:32] LABS: Troponin 5 6HR Delta -1.58 ng/L (0-12)
[2023-04-25] MEDS: magnesium hydroxide 30 mL UDC PO (18:12)
[2023-04-25] MEDS: heparin 5,000 unit/mL INJ 1 mL 5000 UNIT SUBCUT (18:13)
[2023-04-25] MEDS: docusate sodium 100 mg Capsule PO (18:13)
[2023-04-25] MEDS: levoFLOXacin 750 mg Tablet PO (18:13)
[2023-04-25] MEDS: sodium chloride 0.9% 1,000 ML 75 ML IV (18:13)
[2023-04-25 18:24] LABS: Procalcitonin 0.06 ng/mL (0-0.5)
[2023-04-25] MEDS: morphine IR 15 mg Tablet PO (21:56)
[2023-04-26] VITALS (9 sets, daily range): BP systolic 100–115; BP diastolic 55–73; PULSE 70–89; RESP 16–18; TEMP 36.5–37.4; O2SAT 91–95
[2023-04-26] MEDS: morphine IR 15 mg Tablet PO ×4 (04:10→22:38)
[2023-04-26 05:46] LABS: Eosinophils % 1.5 %; Hematocrit 24.1 % (37-53); Lymphocytes # 0.2 10^3/uL (0.8-4.8); Lymphocytes % 14.2 %; Mean Corpuscular HGB Conc 31.5 g/dL (30-55); Mean Corpuscular Hemoglobin 27.2 pg (27-33); Mean Corpuscular Volume 86.4 fl (82-101); Mean Platelet Volume 8.8 fL (7.4-10.4); Monocytes # 0.2 10^3/uL (0.2-0.9); Monocytes % 14.2 %; Neutrophils % 70.1 %; Nucleated Red Blood Cells % 0 %; Platelet Count 192 10^3/cmm (157-399); Red Blood Count 2.79 10^6/uL (3.85-5.65); Red Cell Distribution Width 19.9 % (12.1-15.1); White Blood Count 1.34 10^3/uL (3.29-11.43)
[2023-04-26 06:07] LABS: Alanine Aminotransferase 9 U/L (0-41); Albumin Level 3.2 g/dL (3.5-5.2); Alkaline Phosphatase 86 U/L (40-130); Anion Gap 13.6 (5-19); Aspartate Amino Transferase 8 U/L (0-40); Blood Urea Nitrogen 15 mg/dL (8-23); Calcium 8.3 mg/dL (8.5-10.5); Carbon Dioxide 24 mmol/L (22-29); Chloride 105 mmol/L (98-107); Globulin 2.2 g/dL (1.3-4.6); Glomerular Filtration Rate 165.4 mL/min (90-130); Glucose 93 mg/dL (65-115); Magnesium 1.8 mg/dL (1.7-2.3); Osmolality Calculated 287 mOsm/kg (285-295); Phosphorus 2.7 mg/dL (2.5-4.5); Potassium 4.6 mmol/L (3.5-5.1); Sodium 138 mmol/L (136-145); Total Bilirubin 0.3 mg/dL (0.15-1.2); Total Protein 5.4 g/dL (6.6-8.7)
[2023-04-26 06:09] LABS: Creatinine Clr Calc Pharmacy 89.3605
[2023-04-26] MEDS: heparin 5,000 unit/mL INJ 1 mL 5000 UNIT SUBCUT ×2 (06:14→16:17)
[2023-04-26] MEDS: morphine ER (12 HR) 30 mg tablet PO ×2 (06:14→16:16)
[2023-04-26] MEDS: levoFLOXacin 750 mg Tablet PO (06:14)
[2023-04-26] MEDS: sodium chloride 0.9% 1,000 ML 75 ML IV ×2 (06:15→22:36)
[2023-04-26 06:17] LABS: Add RBC Morph Yes; Slide Review Slide Review Perform
[2023-04-26 06:18] LABS: Neutrophils # 0.94 10^3/uL (1.8-7.7)
[2023-04-26 06:19] LABS: Acanthocytes Trace; Anisocytosis 2+; Hypochromasia 2+; Ovalocytes 1+; Poikilocytosis 1+; RBC Morph Comp No
[2023-04-26] MEDS: pantoprazole DR 40 mg Tablet PO (10:45)
[2023-04-26] MEDS: docusate sodium 100 mg Capsule PO ×2 (10:45→16:16)
[2023-04-26] MEDS: aspirin 81 mg EC Tablet PO (10:45)
[2023-04-26] MEDS: escitalopram 10 mg Tablet PO (10:45)
[2023-04-26] MEDS: magnesium hydroxide 30 mL UDC PO (10:46)
[2023-04-26] MEDS: clopidogrel 75 mg Tablet PO (10:46)
[2023-04-26] MEDS: cefepime 1,000 MG in sodium chloride 0.9% (plus) 50 ML 100 MG IV ×2 (10:46→22:38)
[2023-04-26] MEDS: lidocaine 5% Patch 1 PATCH TOPICAL ×2 (10:49→22:37)
[2023-04-26] MEDS: filgrastim-sndz 480 mcg/0.8 mL Syringe SUBCUT (11:15)
[2023-04-26 14:27] LABS: Add Urine Microscopic? NO; Charge for UA Resulting for Rev
[2023-04-26 14:35] LABS: Specific Gravity, Urine 1.005 (1.005-1.030); Urine Appearance Clear (CLEAR); Urine Color Yellow (Yellow); pH Urine 7 (5-7)
--- NOTE | 2023-04-26 14:35 | P.PN_ITS ---
Subjective Subjective: No acute events overnight. Patient states he is feeling slightly better. Denies any nausea, vomiting, headache. Has remained hemodynamically stable and afebrile. On examination laying comfortably in bed. We did discuss that on admission patient was slightly dehydrated which is also making him feel worse. He verbalized understanding and states he will probably try to do better at home after discharge. Blood work today shows white count of 1.34, stable neutropenia of 0.94, stable platelet of 192 with anemia of 7.6, CMP showing stable creatinine. UA negative for UTI, respiratory viral panel pending. Vitals/I&O/Wt Last Vital Signs Temp 97.7 F 04/26/23 12:00 Pulse 70 04/26/23 12:00 Resp 16 04/26/23 12:00 BP 115/62 04/26/23 12:00 Pulse Ox 92 04/26/23 12:00 O2 Del Method Room Air 04/25/23 17:08 04/25/23 04/26/23 04/26/23 22:59 06:59 14:59 Intake Total 1984 952.5 / 2937.5 480 / 480 Balance 1984 952.5 / 2937.5 480 / 480 Weight last 48 hrs Weight 65.771 kg Physical Exam Narrative: General: No acute distress, AO x3, chronically sick appearing HEENT: PERRLA, pupils bilaterally equal and reactive Chest: Bronchial breath sounds all over lung fowler, decreased air entry on the right side, tenderness on right chest wall CVS: S1-S2 regular, no murmurs, no tachycardia, no gallops, no rubs Abdomen: Soft, nontender, no organomegaly, bowel sounds present sluggish Neuro: No focal deficits, no facial deformity, AO x3, power 5/5 in all limbs Data 04/26/23 05:24 04/26/23 05:24 Micro: Microbiology 04/25/23 09:46 Blood Culture - Preliminary Blood NEGATIVE TO DATE 04/25/23 09:45 Blood Culture - Preliminary Blood NEGATIVE TO DATE A&P Assessment and plan (1) Malignant neoplasm of overlapping sites of right lung: (2) Immunosuppressed due to chemotherapy: (3) Cancer related pain: (4) Neutropenia: (5) Constipation: (6) Cavitary lesion of lung: Plan 67-year-old gentleman with past medical history of lung cancer on chemoradiation therapy presents to the ER because of right-sided chest pain getting worse overnight, generalized myalgias found to be neutropenic. Neutropenia: Has right-sided chest pain which is most likely cancer related. Cannot rule out underlying pneumonia. Appreciate chest x-ray, negative urinalysis. CT abdomen pelvis results appreciated for constipation. Follow-up blood culture. On previous admission was found to have galactogram and serum antigen positive. He does have lung cavity. No concerns for fungal infection for now. Respiratory viral panel negative. For now empirically start patient on IV cefepime 1 g every 12 hourly, Levaquin 750 mg oral daily for double gram-negative. Can most likely DC antibiotics once blood cultures negative for 72 hours. Neutropenic precautions. Received 1 dose of filgrastim on 04/25 Cancer-related pain: For now continue with home dose of morphine extended release 30 mg every 12 hourly, immediate release 15 mg every 6 hours as needed. Lidocaine patch. Constipation: Continue with IV hydration with normal saline at 75 cc/h. Aggressive bowel regimen with milk of magnesia daily, senna Colace twice daily along with Fleet enema. Plan for repeat enema. If no bowel movement will go ahead with manual disimpaction. Full code Regular diet Heparin 5000 every 12 hourly for DVT prophylaxis Protonix for PUD prophylaxis. Attestations Medical Necessity Statement*: Requires further hospitalization for management of neutropenia with fever in setting of recent chemo and radiation therapy, cancer related pain and constipat ion Diagnoses Malignant neoplasm of overlapping sites of right lung C34.81 Immunosuppressed due to chemotherapy D84.821; T45.1X5A; Z79.899 Cancer related pain G89.3 Neutropenia D70.9 Constipation K59.00 Cavitary lesion of lung J98.4
[2023-04-26 14:36] LABS: Bilirubin Urine Neg (Negative); Blood Urine Neg (Negative); Glucose Urine UA Norm (Normal); Ketones Urine Negative (Negative); Leukocyte Esterase Urine Negative (Negative); Nitrate Urine Negative (Negative); Protein Urine Neg (Negative); Urobilinogen Urine Norm (Negative)
[2023-04-26 14:54] LABS: Adenovirus Not Detected (NOT DETECT); Chlamydia Pneumoniae Not Detected (NOT DETECT); Coronavirus 229E,HKU1,NL63,OC4 Not Detected (NOT DETECT); Human Metapneumovirus Not Detected (NOT DETECT); Human Rhinovirus/Enterovirus Not Detected (NOT DETECT); Influenza A Not Detected (NOT DETECT); Influenza A H1 Not Detected (NOT DETECT); Influenza A H1-2009 Not Detected (NOT DETECT); Influenza A H3 Not Detected (NOT DETECT); Influenza B Not Detected (NOT DETECT); Mycoplasma Pneumoniae Not Detected (NOT DETECT); Parainfluenza Virus Type 1 Not Detected (NOT DETECT); Parainfluenza Virus Type 2 Not Detected (NOT DETECT); Parainfluenza Virus Type 3 Not Detected (NOT DETECT); Parainfluenza Virus Type 4 Not Detected (NOT DETECT); Respiratory Syncytial Virus A Not Detected (NOT DETECT); Respiratory Syncytial Virus B Not Detected (NOT DETECT); SARS-COV-2 Not Detected (NOT DETECT)
[2023-04-26] MEDS: lactulose oral liq 20 gm/30 mL UDC 10 GM PO (15:00)
[2023-04-26] MEDS: bisacodyl 5 mg Tablet 10 MG PO (15:00)
[2023-04-26] MEDS: Fleet Enema 133 mL Enema PR (16:17)
[2023-04-27] VITALS (14 sets, daily range): BP systolic 89–119; BP diastolic 46–64; PULSE 68–76; RESP 15–20; TEMP 36.9–37.1; O2SAT 88–93; BMI 20.2
[2023-04-27] MEDS: levoFLOXacin 750 mg Tablet PO (05:14)
[2023-04-27] MEDS: morphine ER (12 HR) 30 mg tablet PO ×2 (05:14→17:57)
[2023-04-27] MEDS: heparin 5,000 unit/mL INJ 1 mL 5000 UNIT SUBCUT ×2 (05:15→17:57)
[2023-04-27] MEDS: docusate sodium 100 mg Capsule PO ×2 (08:46→17:57)
[2023-04-27] MEDS: pantoprazole DR 40 mg Tablet PO (08:46)
[2023-04-27] MEDS: clopidogrel 75 mg Tablet PO (08:46)
[2023-04-27] MEDS: morphine IR 15 mg Tablet PO ×3 (08:46→20:50)
[2023-04-27] MEDS: aspirin 81 mg EC Tablet PO (08:46)
[2023-04-27] MEDS: magnesium hydroxide 30 mL UDC PO (08:46)
[2023-04-27] MEDS: escitalopram 10 mg Tablet PO (08:46)
[2023-04-27] MEDS: lidocaine 5% Patch 1 PATCH TOPICAL ×2 (08:47→20:53)
--- NOTE | 2023-04-27 10:44 | PC.CHAP ---
Pastoral Care Encounter/Spiritual Assessment Type of Contact [] Declined launch check out visit [] Patient/Family/Request visit [] Outpatient visit [] Follow-up visit [] Physician referral [] Code/Alert [x] Routine visit [] Staff referral [] Actively dying [] Patient sleeping [] Family support [] [] Out of room [] Palliative care [] [] Receiving care in room [] Pre-surgical visit [] Trauma [] Long length of stay [] ICU visit [] Other: Relational/Emotional Strength [] Patient feels connected with others/family/visitors/staff [] Distress [] Loneliness/isolation [] Abandonment Spirituality of Patient [x] Person of Candace [] Attends Jehovah'S Witness of their Candace [x] Believes in Prayer [] Reads Bible or Jain materials [] There are Spiritual issues to be addressed 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 x[] Prayer x] Active listening [] Non-anxious presence [] Spiritual/emotional support [] Crisis/trauma care [] Spiritual counseling [] Bereavement support [] Provided bereavement packet [] Provided Bible/devotional materials [] Provided toy/stuffed animal, coloring book to patient or family member [] Provided Communion [] Anointing/[place]nebrog [] Salvation [x] Completed spiritual assessment [] Other: Impact on Illness or Injury [] Angry [] Fearful [] Anxious [] Often cries [] Exhaustion [] Unable to work [] Unable to attend restorationism [] Unable to walk/stand [] Unable to read [] Unable to drive [] Unable to eat/drink [] Unable to sleep [] Unable to be with family [] Patient intubated [] Other: Summary Time spent with patient 5 min
[2023-04-27] MEDS: filgrastim-sndz 480 mcg/0.8 mL Syringe SUBCUT (11:22)
[2023-04-27] MEDS: cefepime 1,000 MG in sodium chloride 0.9% (plus) 50 ML 100 MG IV ×2 (11:23→22:56)
[2023-04-27] MEDS: sodium chloride 0.9% 1,000 ML 75 ML IV (11:23)
[2023-04-27] MEDS: morphine 4 mg/mL SDV 1 mL IVP ×3 (14:23→19:12)
--- NOTE | 2023-04-27 15:23 | P.PN_ITS ---
Subjective Subjective: Patient reports he feels terrible. Endorses severe pleurisy. Reports pain is uncontrolled despite getting morphine. States he did not sleep well. Endorses cough, generalized malaise and fatigue. Reports poor appetite. Medications: Reviewed: Yes Vitals/I&O/Wt Last Vital Signs Temp 98.4 F 04/27/23 12:00 Pulse 76 04/27/23 12:00 Resp 16 04/27/23 14:23 BP 101/54 04/27/23 12:00 Pulse Ox 91 04/27/23 12:00 O2 Del Method Nasal Cannula 04/27/23 04:00 O2 Flow Rate 2 04/27/23 08:45 04/27/23 04/27/23 04/27/23 06:59 14:59 22:59 Intake Total 2059 1248.75 / 1248.75 Balance 2059 1248.75 / 1248.75 Weight last 48 hrs Weight 65.771 kg Physical Exam Narrative: General: Patient is awake. Frail and cachectic appearing. Acutely ill- appearing. Head: Normocephalic. Atraumatic. EOM intact. Neck: No JVD. Cardiovascular: RRR. No gallops. No murmurs. Lungs: Bilateral rhonchi., no use of accessory muscles, no crackles or wheezes. Skin: No jaundice. No rashes. Abdomen: Normal bowel sounds, abdomen soft and nontender. Extremities: No cyanosis or clubbing. Musculoskeletal: No swollen or erythematous joints. Neurological: Moves all 4 extremities. No myoclonus. 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 Coding Level of Care Code Acute Code for Chg Fwd Diagnoses Fever R50.9 Neutropenia D70.9 Cancer related pain G89.3 Immunosuppressed due to chemotherapy D84.821; T45.1X5A; Z79.899 Constipation K59.00 Cavitary lesion of lung J98.4
[2023-04-28] VITALS (12 sets, daily range): BP systolic 88–103; BP diastolic 50–63; PULSE 72–97; RESP 16–20; TEMP 36.4–37; O2SAT 91–96; BMI 20.2
[2023-04-28] MEDS: sodium chloride 0.9% 1,000 ML 75 ML IV (00:08)
[2023-04-28] MEDS: morphine IR 15 mg Tablet PO ×4 (00:49→21:25)
[2023-04-28] MEDS: levoFLOXacin 750 mg Tablet PO (05:00)
[2023-04-28] MEDS: heparin 5,000 unit/mL INJ 1 mL 5000 UNIT SUBCUT ×2 (05:00→17:28)
[2023-04-28] MEDS: morphine ER (12 HR) 30 mg tablet PO ×2 (05:01→17:29)
[2023-04-28 05:37] LABS: Hematocrit 25.2 % (37-53); Mean Corpuscular HGB Conc 30.6 g/dL (30-55); Mean Corpuscular Hemoglobin 27.3 pg (27-33); Mean Corpuscular Volume 89.4 fl (82-101); Mean Platelet Volume 8.9 fL (7.4-10.4); Platelet Count 304 10^3/cmm (157-399); Red Blood Count 2.82 10^6/uL (3.85-5.65); Red Cell Distribution Width 20.4 % (12.1-15.1); White Blood Count 3.79 10^3/uL (3.29-11.43)
[2023-04-28 05:54] LABS: Anion Gap 10.4 (5-19); Blood Urea Nitrogen 16 mg/dL (8-23); Carbon Dioxide 25 mmol/L (22-29); Chloride 103 mmol/L (98-107); Glucose 99 mg/dL (65-115); Magnesium 1.8 mg/dL (1.7-2.3); Phosphorus 3.1 mg/dL (2.5-4.5); Potassium 4.4 mmol/L (3.5-5.1); Sodium 134 mmol/L (136-145)
[2023-04-28 06:02] LABS: Absolute Eosinophils 0.1 10^3/cmm (0.0-0.7); Band Neutrophils Absolute 0.2 10^3/cmm (0.0-1.2); Eosinophils 2 %; Lymphocytes 6 %; Monocytes Absolute 0.1 10^3/cmm (0.1-0.6); Segmented Neutrophils 78 %; Slide Review Slide Review Perform; Total Cells Counted 100 (0-100)
[2023-04-28 06:03] LABS: Absolute Neutrophil 3.1 10^3/cmm (1.4-6.5); Creatinine Clr Calc Pharmacy 89.3605; Platelet Estimate Normal (Normal)
[2023-04-28] MEDS: magnesium hydroxide 30 mL UDC PO (08:18)
[2023-04-28] MEDS: docusate sodium 100 mg Capsule PO ×2 (08:18→17:28)
[2023-04-28] MEDS: pantoprazole DR 40 mg Tablet PO (08:19)
[2023-04-28] MEDS: clopidogrel 75 mg Tablet PO (08:19)
[2023-04-28] MEDS: escitalopram 10 mg Tablet PO (08:19)
[2023-04-28] MEDS: filgrastim-sndz 480 mcg/0.8 mL Syringe SUBCUT (08:21)
[2023-04-28] MEDS: lidocaine 5% Patch 1 PATCH TOPICAL ×2 (08:22→21:25)
[2023-04-28] MEDS: aspirin 81 mg EC Tablet PO (08:22)
[2023-04-28] MEDS: cefepime 1,000 MG in sodium chloride 0.9% (plus) 50 ML 100 MG IV (11:01)
[2023-04-28] MEDS: benzonatate 100 mg Capsule PO ×2 (11:06→18:34)
--- NOTE | 2023-04-28 11:43 | P.PN_ITS ---
Subjective Subjective: Patient reports he feels terrible. He states he actually feels worse today than when he came in. Endorses worse pleurisy. Fever has improved. Reports overall, feels ill. Reports intake has been ok. Reports diffuse weakness, malaise and fatigue. Medications: Reviewed: Yes Vitals/I&O/Wt Last Vital Signs Temp 98.2 F 04/28/23 08:00 Pulse 91 04/28/23 08:00 Resp 16 04/28/23 08:19 BP 92/50 04/28/23 08:00 Pulse Ox 94 04/28/23 08:00 O2 Del Method Room Air 04/28/23 08:00 O2 Flow Rate 2 04/27/23 20:00 04/27/23 04/28/23 04/28/23 22:59 06:59 14:59 Intake Total 1965.5.00 480 / 480 Balance 3214. 480 / 480 Weight last 48 hrs Weight 65.771 kg Weight 65.771 kg Physical Exam Narrative: General: Patient is awake. Frail and cachectic appearing. Acutely ill-appe aring. In bed. Head: Normocephalic. Atraumatic. EOM intact. Neck: No JVD. Cardiovascular: No heaves. No gallops. No murmurs. Lungs: Bilateral rhonchi, no use of accessory muscles, no crackles or wheezes. Skin: No jaundice. No rashes. Abdomen: Normal bowel sounds, abdomen soft and nontender. Extremities: No cyanosis or clubbing. Musculoskeletal: No swollen or erythematous joints. Neurological: Moves all 4 extremities. No myoclonus. 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
[2023-04-29] VITALS: BP 98/55; PULSE 76; RESP 18; TEMP 36.4; O2SAT 94
[2023-04-29] MEDS: cefepime 1,000 MG in sodium chloride 0.9% (plus) 50 ML 100 MG IV (00:10)
[2023-04-29] MEDS: benzonatate 100 mg Capsule PO (02:38)
[2023-04-29 02:39] VITALS: RESP 18; O2SAT 94
[2023-04-29] MEDS: morphine IR 15 mg Tablet PO ×2 (02:39→09:25)
[2023-04-29 05:00] VITALS: BP 100/60; PULSE 73; RESP 18; TEMP 36.4; O2SAT 94
[2023-04-29] MEDS: heparin 5,000 unit/mL INJ 1 mL 5000 UNIT SUBCUT (05:10)
[2023-04-29] MEDS: morphine ER (12 HR) 30 mg tablet PO (05:10)
[2023-04-29] MEDS: levoFLOXacin 750 mg Tablet PO (05:10)
[2023-04-29 05:36] LABS: Basophils % 0.9 %; Eosinophils # 0.1 10^3/uL (0.0-0.8); Eosinophils % 1.1 %; Hematocrit 24.6 % (37-53); Lymphocytes # 0.3 10^3/uL (0.8-4.8); Lymphocytes % 6.8 %; Mean Corpuscular HGB Conc 30.9 g/dL (30-55); Mean Corpuscular Hemoglobin 27.6 pg (27-33); Mean Corpuscular Volume 89.5 fl (82-101); Mean Platelet Volume 8.9 fL (7.4-10.4); Monocytes # 0.4 10^3/uL (0.2-0.9); Monocytes % 8.8 %; Neutrophils % 81.5 %; Nucleated Red Blood Cells % 0 %; Platelet Count 279 10^3/cmm (157-399); Red Blood Count 2.75 10^6/uL (3.85-5.65); Red Cell Distribution Width 21.1 % (12.1-15.1); White Blood Count 4.42 10^3/uL (3.29-11.43)
[2023-04-29 05:53] LABS: Anion Gap 10.4 (5-19); Blood Urea Nitrogen 18 mg/dL (8-23); Calcium 8.3 mg/dL (8.5-10.5); Carbon Dioxide 27 mmol/L (22-29); Chloride 105 mmol/L (98-107); Glucose 105 mg/dL (65-115); Magnesium 1.8 mg/dL (1.7-2.3); Phosphorus 2.9 mg/dL (2.5-4.5); Potassium 4.4 mmol/L (3.5-5.1); Sodium 138 mmol/L (136-145)
[2023-04-29 05:54] LABS: Creatinine Clr Calc Pharmacy 89.3605
[2023-04-29 05:59] LABS: Slide Review Slide Review Perform
[2023-04-29 08:00] VITALS: BP 97/61; PULSE 70; RESP 22; TEMP 36.6; O2SAT 95
--- NOTE | 2023-04-29 09:21 | P.DS_ITS ---
Discharge Providers Date of Admission: 04/25/23 15:25 Date of Discharge: April 29, 2023 Attending Provider at Admission: Idris Niño MD Attending Provider at Discharge: Troy Santa MD Primary Care Provider: Liya Huerta MD Diagnoses at Discharge Discharge Diagnosis (1) Fever: Status: Acute (2) Neutropenia: Status: Acute (3) Cancer related pain: Status: Acute (4) Immunosuppressed due to chemotherapy: Status: Acute (5) Constipation: Status: Acute (6) Cavitary lesion of lung: Status: Acute Reason for Visit Reason for Visit: chest pain Hospital Course Hospital Course Karthik Gordon is a 67 year old male with a past medical history significant for COPD, depression, 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 He was treated with broad-spectrum antibiotics with cefepime and levofloxacin. He was pancultured which remain negative. Neutropenia improved with Zarxio and treatment. He was rotated to oral antibiotics with levofloxacin to complete an additional five days of treatment at discharge. Hospital course was complicated by uncontrolled pain. Patient reports pain was poorly controlled prior to admission as well. He is on short and long-acting opiates prior to admission. His short acting morphine was increased at discharge to try to obtain better analgesic control. Patient discharged home in stable condition. He is to follow-up with his primary care provider as well as oncology provider as outpatient. Physical Exam Narrative: General: Patient is awake.? Frail and cachectic appearing.? No acute distress. Head:? Normocephalic. Atraumatic. EOM intact. Neck: No JVD. Cardiovascular: No heaves. No gallops. No murmurs. Lungs: Breath sounds are coarse in right lung i, no use of accessory muscles, no crackles or wheezes. On room air. Skin: No jaundice. No rashes. Abdomen: Normal bowel sounds, abdomen soft and nontender. Extremities: No cyanosis or clubbing. Musculoskeletal: No swollen or erythematous joints. Neurological: Moves all 4 extremities. No myoclonus. Discharge Data Studies Completed and Pending Completed Studies During Hospitalization Category Date Time Status CT abdomen pelvis w con* [id number] Stat Cat Scan 04/25/23 11:25 Completed XR chest 1V portable [id number] Stat Exams 04/25/23 09:11 Completed Pending at discharge Category Date Time Status Blood Culture Stat Lab 04/25/23 09:46 Results Sputum Culture and Gram Stain Routine Lab 04/27/23 05:25 Results Radiology Impressions Chest X-Ray 04/25/23 09:11 IMPRESSION: There is some similar masslike appearance about the rib midlung zone. Overall no interval lobar type consolidation or cardiac decompensation is appreciated. Abdomen/Pelvis CT 04/25/23 11:25 IMPRESSION: The bowel gas pattern appears nonobstructive overall as there is colonic gas present. There is however a significant amount of stool present indicative of constipation and possible impaction. There appears to be some corresponding distal small bowel dilatation for example of the distal ileal level with some small bowel feces suggestive of overall slow flow and decreased transit. Laboratory Results WBC 4.42 10^3/uL (3.29-11.43) 04/29/23 05:02 RBC 2.75 10^6/uL (3.85-5.65) L 04/29/23 05:02 Hgb 7.60 g/dL (11.27-16.99) L 04/29/23 05:02 Hct 24.6 % (37-53) L 04/29/23 05:02 MCV 89.5 fl (82-101) 04/29/23 05:02 MCH 27.6 pg (27-33) 04/29/23 05:02 MCHC 30.9 g/dL (30-55) 04/29/23 05:02 RDW 21.1 % (12.1-15.1) H 04/29/23 05:02 Plt Count 279 10^3/cmm (157-399) 04/29/23 05:02 MPV 8.9 fL (7.4-10.4) 04/29/23 05:02 Neut % (Auto) 81.5 % 04/29/23 05:02 Lymph % (Auto) 6.8 % 04/29/23 05:02 [place] % (Auto) 8.8 % 04/29/23 05:02 Eos % (Auto) 1.1 % 04/29/23 05:02 Baso % (Auto) 0.9 % 04/29/23 05:02 Neut # (Auto) 3.60 10^3/uL (1.8-7.7) 04/29/23 05:02 Lymph # (Auto) 0.3 10^3/uL (0.8-4.8) L 04/29/23 05:02 [place] # (Auto) 0.4 10^3/uL (0.2-0.9) 04/29/23 05:02 Eos # (Auto) 0.1 10^3/uL (0.0-0.8) 04/29/23 05:02 Baso # (Auto) 0.0 10^3/uL (0.0-0.1) 04/29/23 05:02 Nucleated RBC % (auto) 0 % 04/29/23 05:02 Total Counted 100 (0-100) 04/28/23 05:09 Atypical Lymphs % Not Reportable 04/28/23 05:09 Absolute Neutrophils 3.1 10^3/cmm (1.4-6.5) 04/28/23 05:09 Segmented Neutrophils 78 % 04/28/23 05:09 Abs Segm Neuts (Man) 3.0 10/cmm (1.6-7.1) 04/28/23 05:09 Band Neutrophils 5.0 % 04/28/23 05:09 Abs Band Neuts (Man) 0.2 10^3/cmm (0.0-1.2) 04/28/23 05:09 Lymphocytes (Manual) 6 % 04/28/23 05:09 Monocytes (Manual) 3.0 % 04/28/23 05:09 Absolute Monocytes 0.1 10^3/cmm (0.1-0.6) 04/28/23 05:09 Eosinophils (Manual) 2 % 04/28/23 05:09 Absolute Eosinophils 0.1 10^3/cmm (0.0-0.7) 04/28/23 05:09 Basophils (Manual) 0.0 % 04/28/23 05:09 Absolute Basophils 0.0 10^3/cmm (0.0-0.2) 04/28/23 05:09 Myelocytes 6.0 % 04/28/23 05:09 Nucleated RBCs # 0.0 /100WBC 04/29/23 05:02 Platelet Estimate Normal (Normal) 04/28/23 05:09 Hypochromasia 2+ H 04/26/23 05:24 Poikilocytosis 1+ H 04/26/23 05:24 Anisocytosis 2+ H 04/26/23 05:24 Ovalocytes 1+ H 04/26/23 05:24 Acanthocytes (Spur) Trace 04/26/23 05:24 Sodium 138 mmol/L (136-145) 04/29/23 05:02 Potassium 4.4 mmol/L (3.5-5.1) 04/29/23 05:02 Chloride 105 mmol/L (98-107) 04/29/23 05:02 Carbon Dioxide 27 mmol/L (22-29) 04/29/23 05:02 Anion Gap 10.4 (5-19) 04/29/23 05:02 BUN 18 mg/dL (-23) 04/29/23 05:02 Creatinine 0.6 mg/dL (0.7-1.2) L 04/29/23 05:02 GFR Calculation 134.0 mL/min (90-130) H 04/29/23 05:02 Glucose 105 mg/dL (65-115) 04/29/23 05:02 Calculated Osmolality 287 mOsm/kg (285-295) 04/26/23 05:24 Lactic Acid 1.6 mmol/L (0.5-2.2) 04/25/23 09:36 Calcium 8.3 mg/dL (8.5-10.5) L 04/29/23 05:02 Phosphorus 2.9 mg/dL (2.5-4.5) 04/29/23 05:02 Magnesium 1.8 mg/dL (1.7-2.3) 04/29/23 05:02 Total Bilirubin 0.3 mg/dL (0.15-1.2) 04/26/23 05:24 AST 8 U/L (0-40) 04/26/23 05:24 ALT 9 U/L (0-41) 04/26/23 05:24 Alkaline Phosphatase 86 U/L (40-130) 04/26/23 05:24 Troponin T Baseline 17 ng/L (0-15) H 04/25/23 09:36 Troponin T 120 Minute 18.41 ng/L (0-15) H 04/25/23 11:43 Delta Troponin T 1.41 ABS# (0-10) 04/25/23 11:43 Troponin T Hi Sens 6Hr 15.42 ng/L (0-15) H 04/25/23 15:42 Troponin T Hi Sens 6Hr Delta -1.58 ng/L (0-12) L 04/25/23 15:42 Total Protein 5.4 g/dL (6.6-8.7) L 04/26/23 05:24 Albumin 3.0 g/dL (3.5-5.2) L 04/29/23 05:02 Globulin 2.2 g/dL (1.3-4.6) 04/26/23 05:24 Procalcitonin 0.06 ng/mL (0-0.5) 04/25/23 15:42 Urine Color Yellow (Yellow) 04/26/23 14:00 Urine Appearance Clear (CLEAR) 04/26/23 14:00 Urine pH 7 (5-7) 04/26/23 14:00 Ur Specific [place] 1.005 (1.005-1.030) 04/26/23 14:00 Urine Protein Neg (Negative) 04/26/23 14:00 Urine Glucose (UA) Norm (Normal) 04/26/23 14:00 Urine Ketones Negative (Negative) 04/26/23 14:00 Urine Blood Neg (Negative) 04/26/23 14:00 Urine Nitrate Negative (Negative) 04/26/23 14:00 Urine Bilirubin Neg (Negative) 04/26/23 14:00 Urine Urobilinogen Norm mg/dL (Negative) 04/26/23 14:00 Ur Leukocyte Esterase Negative (Negative) 04/26/23 14:00 Nasal Influ A H1 2008 PCR Not detected (NOT DETECT) 04/26/23 12:37 Adenovirus (PCR) Not detected (NOT DETECT) 04/26/23 12:37 C. pneumoniae DNA (PCR) Not detected (NOT DETECT) 04/26/23 12:37 Coronavirus 229E (PCR) Not detected (NOT DETECT) 04/26/23 12:37 Human Metapneumovir PCR Not detected (NOT DETECT) 04/26/23 12:37 Influenza A (H1) PCR Not detected (NOT DETECT) 04/26/23 12:37 Influenza A (H3) PCR Not detected (NOT DETECT) 04/26/23 12:37 Influenza Type A (PCR) Not detected (NOT DETECT) 04/26/23 12:37 Influenza Type B (PCR) Not detected (NOT DETECT) 04/26/23 12:37 M. pneumoniae (PCR) Not detected (NOT DETECT) 04/26/23 12:37 Parainfluenza 1 (PCR) Not detected (NOT DETECT) 04/26/23 12:37 Parainfluenza 2 (PCR) Not detected (NOT DETECT) 04/26/23 12:37 Parainfluenza 3 (PCR) Not detected (NOT DETECT) 04/26/23 12:37 Parainfluenza 4 (PCR) Not detected (NOT DETECT) 04/26/23 12:37 RSV Type A (PCR) Not detected (NOT DETECT) 04/26/23 12:37 RSV Type B (PCR) Not detected (NOT DETECT) 04/26/23 12:37 Entero/Rhino (PCR) Not detected (NOT DETECT) 04/26/23 12:37 SARS-CoV-2 (PCR) Not detected (NOT DETECT) 04/26/23 12:37 Vitals Last Vital Signs Temp 97.8 F 04/29/23 08:00 Pulse 70 04/29/23 08:00 Resp 22 H 04/29/23 08:00 BP 97/61 04/29/23 08:00 Pulse Ox 95 04/29/23 08:00 O2 Del Method Room Air 04/29/23 08:00 O2 Flow Rate 2 04/27/23 20:00 Discharge Plan Discharge Patient Disposition: Home Condition: Stable Prescriptions: New levofloxacin 750 mg Tablet 750 mg PO DAILY@0600 5 Days Qty: 5 0RF morphine 30 mg tablet 30 mg PO Q6H PRN (Reason: pain) 30 Days Qty: 120 0RF Rx Instructions: Cancer patient. Discontinue other Morphine MSIR prescriptions please. Continued aspirin [Adult Low Dose Aspirin] 81 mg tablet,delayed release (DR/EC) 81 mg PO DAILY Symbicort 160-4.5 mcg/actuation HFA aerosol inhaler 2 puff INHALATION BID Qty: 18 3RF lorazepam 1 mg tablet 0.5 - 1 mg PO Q6H PRN (Reason: Severe Nausea) Qty: 30 3RF morphine 30 mg tablet extended release 30 mg PO Q12H 30 Days Qty: 60 0RF pantoprazole 40 mg tablet,delayed release (DR/EC) 40 mg PO DAILY Qty: 90 0RF clopidogrel 75 mg tablet 75 mg PO DAILY Qty: 90 3RF Hold Instructions: Resume on 10/24/22. albuterol sulfate 90 mcg/actuation HFA aerosol inhaler 2 puff INHALATION Q6H PRN (Reason: shortness of breath or wheezing) Qty: 6.7 5RF escitalopram oxalate 10 mg tablet 10 mg PO DAILY Qty: 30 2RF Discontinued morphine 15 mg tablet 15 mg PO Q6H PRN (Reason: pain) 14 Days Qty: 60 0RF Discharge Orders: Discharge Order (Routine); Ordered 04/29/23 Ordered By: Troy Santa Referrals: Liya Huerta MD [Primary Care Provider] - 1-3 days (We have notified your physician's clinic of the need for a follow-up appointment to be scheduled. If you have not heard from them within the next 2 business days, please call them directly. You may also reach out to our airborne weapons technical manager at [phone] and she can assist you.) Discharge Diet: Advance as tolerated and Usual diet Discharge Activity: Resume usual activity and Increase activity as tolerated Patient Instructions: Levofloxacin (By mouth), Morphine, Slow Release (By mouth), Neutropenia (ED), Neutropenic Diet, Opioid Safety Activity Restrictions/Additional Instructions: 1. Take medications as prescribed. 2. Follow up with PCP and oncology. 3. Do not operate heavy machinery or drive while under the influence of opiates. Discharge Attestations Time Spent in Discharge Care*: greater than 30 min Status at Discharge: Cognitive status at discharge: cognitively intact , Behavioral status at discharge: cooperative , Quality Metrics Clinical Quality Measures [ No reported AMI, CVA or VTE this stay] Coding Level of Care Code Acute Code for Chg Fwd Diagnoses Fever R50.9 Neutropenia D70.9 Cancer related pain G89.3 Immunosuppressed due to chemotherapy D84.821; T45.1X5A; Z79.899 Constipation K59.00 Cavitary lesion of lung J98.4
[2023-04-29] MEDS: pantoprazole DR 40 mg Tablet PO (09:25)
[2023-04-29] MEDS: docusate sodium 100 mg Capsule PO (09:26)
[2023-04-29] MEDS: lidocaine 5% Patch 1 PATCH TOPICAL (09:26)
[2023-04-29] MEDS: clopidogrel 75 mg Tablet PO (09:26)
[2023-04-29] MEDS: escitalopram 10 mg Tablet PO (09:26)
[2023-04-29] MEDS: aspirin 81 mg EC Tablet PO (09:26)
[2023-04-29 10:00] VITALS: BMI 20.2
--- NOTE | 2023-04-29 10:31 | PC.NURSE ---
assessment of PICC line dressing showed that it needed to be changed today, spoke with the patient and he would like Oncology to change dressing when he goes to radiation after discharge.
[2023-04-29 10:45] VITALS: BP 97/61; PULSE 70; RESP 22; TEMP 36.6; O2SAT 95
== END 2023-04-29 10:15 | disposition home or self-care (01) | DRG 808 ==
LOC: ER 09:36 → MEDSURG 15:03
PROVIDERS: Admitting Provider Student in an Organized Health Care Education/Training Program; Emergency Provider Family Medicine; PCP Family Medicine; Visit Provider Internal Medicine
DX: D70.1 Agranulocytosis secondary to cancer chemotherapy (principal); J18.9 Pneumonia, unspecified organism; C34.81 Malignant neoplasm of overlapping sites of right bronchus and lung; C79.89 Secondary malignant neoplasm of other specified sites; D84.821 Immunodeficiency due to drugs; J44.0 Chronic obstructive pulmonary disease with (acute) lower respiratory infection; T45.1X5A Adverse effect of antineoplastic and immunosuppressive drugs, initial encounter; G89.3 Neoplasm related pain (acute) (chronic); K59.00 Constipation, unspecified; F32.A Depression, unspecified; Z79.899 Other long term (current) drug therapy; Z79.82 Long term (current) use of aspirin; Z79.891 Long term (current) use of opiate analgesic; Z79.51 Long term (current) use of inhaled steroids; I25.10 Atherosclerotic heart disease of native coronary artery without angina pectoris; I10 Essential (primary) hypertension; E78.5 Hyperlipidemia, unspecified; I73.9 Peripheral vascular disease, unspecified; Z95.820 Peripheral vascular angioplasty status with implants and grafts; F17.210 Nicotine dependence, cigarettes, uncomplicated; Z96.611 Presence of right artificial shoulder joint; J98.4 Other disorders of lung
CPT/HCPCS: 36415; 71045; 74177; 80053; 80069; 81003; 83605; 83735; 84100; 84145; 84484; 85007; 85025; 86403; 87040; 87070; 87205; 87449; 87486; 87581; 87633; 93005; 96365; 96372; 96375; 96376; 99285; J0692; J1644; J2270; J2405; J7030; Q5101; Q9967

== ENCOUNTER 2023-04-30 09:00 | Oncology outpatient (recurring) (ONCR) | payer MEDICARE, SELFPAY ==
--- NOTE | 2023-04-21 08:33 | ONCRAD TMN_ITS ---
Radiation Oncology Weekly Treatment Management Patient: Heidi Angeles> MR#: [id number] : 1955> Attending Physician: Alexandr Drake Date of Service: 04/21/2023 Referring Physician(s) : Maynor Kirkpatrick M.D. Diagnosis: C34.10 - Malignant neoplasm of upper lobe, unspecified bronchus or lung, Diagnosed 01/23/2023 (Active) Stage IIIC, T3, N3, M0 Radiotherapy to date: Course: Lung 2022, Treatment Site: RT [id number], Ref. ID: [id number], Energy: 6X, Dose/Fx (cGy): 200, #Fx: 16 / 30, Dose Correction (cGy): 0, Total Dose (cGy): 3,200, Start Date: 03/24/2023, Elapsed Days: 28 Reason for visit: The patient is being seen today as part of their regularly scheduled weekly on treatment visits to assess for acute toxicities from radiotherapy. Review of Systems: He is doing well with no significant sxs. Eating ok. No sore throat. Activity level ok. Quit smoking. Chemo to follow treatment today if labs are ok. Vital Signs: Performed on 04/21/2023 8:21 AM BMI - 20.642 kg/m2, Height - 71 in, Weight - 148 lbs, Temperature - 96.7 f, Pulse - 58 /min (low), Respiration - 16 /min, O2 Sat - 99 %, Pain - 7, Fatigue - 7 and BP - 99/ 67 mm(hg). Physical Exam: Imaging: Radiation therapy imaging related to accurate target localization (i.e. KV, MV and CBCT) was reviewed. Appropriate changes, if any, were made to ensure treatment accuracy. Plan: Continue treatment as planned. No interval changes are needed. Telemedicine Consent Patient seen today via Telemedicine by agreement and consent of patient. Telemedicine technology used during the visit include audio and, as available, review of images. This patient encounter is appropriate and reasonable under the circumstances given the patient???s particular presentation at this time. The patient has been advised of the potential risks and limitations of this mode of treatment (including but not limited to the absence of in-person examination) and has agreed to be treated in a remote fashion in spite of them. Any and all of the patient???s/patient???s family???s questions on this issue have been answered and I have made no promises or guarantees to the patient. The patient has also been advised to contact this office for worsening conditions or problems, and seek emergency medical treatment and/or call 911 if the patient deems either necessary. Signed by: Alexandr Drake 04/21/2023 8:32:04 AM
[2023-04-21 08:35] VITALS: BP 103/66; PULSE 88; RESP 18; TEMP 36.8; O2SAT 92; BMI 18.7
[2023-04-21 08:58] LABS: Basophils % 0.6 %; Eosinophils # 0.1 10^3/uL (0.0-0.8); Eosinophils % 3.8 %; Hematocrit 26.9 % (42.0-52.0); Hemoglobin 8.4 g/dL (11.7-16.6); Lymphocytes # 0.3 10^3/uL (0.8-4.8); Lymphocytes % 15.8 %; Mean Corpuscular HGB Conc 31.2 g/dL (30.0-36.0); Mean Corpuscular Hemoglobin 26.8 pg (28.0-34.0); Mean Corpuscular Volume 85.7 fl (80-94); Mean Platelet Volume 9.5 fL (7.4-10.4); Monocytes # 0.1 10^3/uL (0.2-0.9); Monocytes % 6.3 %; Neutrophils # 1.15 10^3/uL (1.8-7.7); Neutrophils % 72.9 %; Nucleated Red Blood Cells % 0 %; Platelet Count 159 10^3/cmm (130-400); Red Blood Count 3.14 10^6/uL (4.1-5.3); Red Cell Distribution Width 16.6 % (12.1-15.1); White Blood Count 1.6 10^3/uL (4.0-10.0)
[2023-04-21 09:28] LABS: Alanine Aminotransferase 11 U/L (0-41); Albumin Level 3.6 g/dL (3.5-5.2); Alkaline Phosphatase 84 U/L (40-130); Blood Urea Nitrogen 18 mg/dL (8-23); Calcium 8.5 mg/dL (8.5-10.5); Carbon Dioxide 31 mmol/L (22-29); Chloride 101 mmol/L (98-107); Globulin 2.1 g/dL (1.3-4.6); Glomerular Filtration Rate 165.4 mL/min (90-130); Glucose 99 mg/dL (65-115); Osmolality Calculated 288 mOsm/kg (285-295); Sodium 138 mmol/L (136-145); Total Bilirubin 0.4 mg/dL (0.15-1.2); Total Protein 5.7 g/dL (6.6-8.7)
[2023-04-21 09:30] LABS: Anion Gap 10.6 (5-19); Aspartate Amino Transferase 16 U/L (0-40); Potassium 4.6 mmol/L (3.5-5.1)
[2023-04-29 11:22] LABS: Hematocrit 24.1 % (37-53); Mean Corpuscular HGB Conc 31.1 g/dL (30-55); Mean Corpuscular Hemoglobin 27.8 pg (27-33); Mean Corpuscular Volume 89.3 fl (82-101); Mean Platelet Volume 8.7 fL (7.4-10.4); Platelet Count 291 10^3/cmm (157-399); Red Cell Distribution Width 20.9 % (12.1-15.1)
[2023-04-29 11:27] LABS: Slide Review Slide Review Perform
[2023-04-29 11:50] LABS: Alanine Aminotransferase 9 U/L (0-41); Albumin Level 3.1 g/dL (3.5-5.2); Alkaline Phosphatase 105 U/L (40-130); Anion Gap 12.4 (5-19); Aspartate Amino Transferase 8 U/L (0-40); Blood Urea Nitrogen 17 mg/dL (8-23); Calcium 8.3 mg/dL (8.5-10.5); Carbon Dioxide 25 mmol/L (22-29); Chloride 103 mmol/L (98-107); Globulin 2.6 g/dL (1.3-4.6); Glucose 71 mg/dL (65-115); Osmolality Calculated 282 mOsm/kg (285-295); Potassium 4.4 mmol/L (3.5-5.1); Sodium 136 mmol/L (136-145); Total Bilirubin 0.4 mg/dL (0.15-1.2); Total Protein 5.7 g/dL (6.6-8.7)
[2023-04-29 12:04] LABS: Band Neutrophils Absolute 0.4 10^3/cmm (0.0-1.2); Eosinophils 1 %; Lymphocytes 13 %; Lymphocytes Absolute 0.4 10^3/cmm (1.2-3.4); Monocytes Absolute 0.4 10^3/cmm (0.1-0.6); Segmented Neutrophils 59 %; Total Cells Counted 100 (0-100)
[2023-04-29 12:05] LABS: Absolute Neutrophil 2.4 10^3/cmm (1.4-6.5); Dohle Bodies 2+; Ovalocytes 2+; Platelet Estimate Normal (Normal); Toxic Granulation 3+
[2023-04-30] VITALS (8 sets, daily range): BP systolic 97–124; BP diastolic 55–66; PULSE 55–77; RESP 17–18; TEMP 36–36.3; O2SAT 93–98; BMI 19.9
[2023-04-30] MEDS: acetaminophen 325 mg Tablet 650 MG PO ×2 (10:05→10:06)
[2023-04-30] MEDS: diphenhydrAMINE 25 mg Capsule PO (10:06)
[2023-04-30] MEDS: sodium chloride 0.9% 250 mL Bag IV (10:16)
--- NOTE | 2023-04-30 14:33 | ONCRAD TMN_ITS ---
Radiation Oncology Weekly Treatment Management Patient: Karthik Gordon> MR#: [id number] : 1955> Attending Physician: Alexandr Drake Date of Service: 04/30/2023 Referring Physician(s) : Maynor Kirkpatrick M.D. Diagnosis: C34.10 - Malignant neoplasm of upper lobe, unspecified bronchus or lung, Diagnosed 01/23/2023 (Active) Stage IIIC, T3, N3, M0 Radiotherapy to date: Course: Lung 2022, Treatment Site: [facility] [id number], Ref. ID: [id number], Energy: 6X, Dose/Fx (cGy): 200, #Fx: , Dose Correction (cGy): 0, Total Dose (cGy): 3,800, Start Date: 03/24/2023, Elapsed Days: 37 Reason for visit: The patient is being seen today as part of their regularly scheduled weekly on treatment visits to assess for acute toxicities from radiotherapy. Review of Systems: He just had a 2 unit transfusion> Now feeling much better. Energy level much improved. Breathing ok. Appetite is ok. Swallowing is ok. Vital Signs: Performed on 04/30/2023 2:03 PM BMI - 20.307 kg/m2, Height - 71 in, Weight - 145.6 lbs, Temperature - 97.1 f, Pulse - 77 /min, Respiration - 18 /min, O2 Sat - 98 %, Pain - 0, Fatigue - 0 and BP - 117/ 58 mm(hg)(/low). Physical Exam: Imaging: Radiation therapy imaging related to accurate target localization (i.e. KV, MV and CBCT) was reviewed. Appropriate changes, if any, were made to ensure treatment accuracy. Plan: Improved energy level after transfusion. Good tolerance of treatment. Continue treatment as planned. Signed by: Alexandr Drake 04/30/2023 4:23:56 PM Telemedicine Consent Patient seen today via Telemedicine by agreement and consent of patient. Telemedicine technology used during the visit include audio and, as available, review of images. This patient encounter is appropriate and reasonable under the circumstances given the patient???s particular presentation at this time. The patient has been advised of the potential risks and limitations of this mode of treatment (including but not limited to the absence of in-person examination) and has agreed to be treated in a remote fashion in spite of them. Any and all of the patient???s/patient???s family???s questions on this issue have been answered and I have made no promises or guarantees to the patient. The patient has also been advised to contact this office for worsening conditions or problems, and seek emergency medical treatment and/or call 911 if the patient deems either necessary.
== END 2023-04-30 23:59 | disposition home or self-care (01) ==
PROVIDERS: Internal Medicine Medical Oncology; Nurse Practitioner Family; Absent Provider Radiology Radiation Oncology; PCP Family Medicine; Visit Provider Radiology Radiation Oncology
DX: C34.81 Malignant neoplasm of overlapping sites of right bronchus and lung
CPT/HCPCS: 36430; 77386; 80053; 85007; 85025; 86850; 86900; 86920; 99024; 99213; 99214; J1642; J7050; P9016

== ENCOUNTER 2023-05-14 15:17 | Oncology outpatient (recurring) (ONCR) | payer MEDICARE, SELFPAY ==
[2023-05-06 08:35] LABS: Basophils % 0.6 %; Eosinophils # 0.1 10^3/uL (0.0-0.8); Eosinophils % 1.4 %; Hematocrit 32.6 % (37-53); Lymphocytes # 0.4 10^3/uL (0.8-4.8); Lymphocytes % 11.5 %; Mean Corpuscular HGB Conc 31.6 g/dL (30-55); Mean Corpuscular Hemoglobin 28.4 pg (27-33); Mean Corpuscular Volume 89.8 fl (82-101); Mean Platelet Volume 8.6 fL (7.4-10.4); Monocytes # 0.3 10^3/uL (0.2-0.9); Monocytes % 8.7 %; Neutrophils # 2.68 10^3/uL (1.8-7.7); Neutrophils % 75.5 %; Nucleated Red Blood Cells % 0 %; Platelet Count 358 10^3/cmm (157-399); Red Blood Count 3.63 10^6/uL (3.85-5.65); White Blood Count 3.55 10^3/uL (3.29-11.43)
[2023-05-06 08:52] LABS: Alanine Aminotransferase 9 U/L (0-41); Albumin Level 3.4 g/dL (3.5-5.2); Alkaline Phosphatase 137 U/L (40-130); Anion Gap 13.9 (5-19); Aspartate Amino Transferase 13 U/L (0-40); Blood Urea Nitrogen 16 mg/dL (8-23); Calcium 8.6 mg/dL (8.5-10.5); Carbon Dioxide 25 mmol/L (22-29); Chloride 104 mmol/L (98-107); Globulin 2.5 g/dL (1.3-4.6); Glucose 94 mg/dL (65-115); Osmolality Calculated 289 mOsm/kg (285-295); Potassium 3.9 mmol/L (3.5-5.1); Sodium 139 mmol/L (136-145); Total Bilirubin 0.2 mg/dL (0.15-1.2); Total Protein 5.9 g/dL (6.6-8.7)
[2023-05-06] MEDS: sodium chloride 0.9% 250 ML 75 ML IV (10:04)
[2023-05-06] MEDS: famotidine 20 mg/2 mL INJ IVP (10:06)
[2023-05-06] MEDS: acetaminophen 325 mg Tablet 650 MG PO (10:07)
[2023-05-06] MEDS: diphenhydrAMINE 50 mg/mL SDV 1mL 25 MG IVP (10:07)
[2023-05-06] MEDS: dexamethasone 20 MG in sodium chloride 0.9% 50 ML 188 MG IV (10:11)
[2023-05-06] MEDS: palonosetron 0.25 mg/5 mL SDV IVP (10:11)
[2023-05-06] MEDS: PACLitaxeL 90 MG in sodium chloride 0.9%(non-DEHP) 250 ML 265 MG IV (10:49)
[2023-05-06] MEDS: CARBOplatin 280 MG in sodium chloride 0.9% 500 ML 528 MG IV (12:03)
[2023-05-06 13:15] VITALS: BP 121/68; PULSE 82; RESP 16; TEMP 36.2; O2SAT 94
--- NOTE | 2023-05-06 14:36 | ONCRAD TMN_ITS ---
Radiation Oncology Weekly Treatment Management Patient: Heidi Angeles MR#: [id number] : 1955 Attending Physician: Tee Villagran Date of Service: 05/06/2023 Referring Physician(s) : Maynor Kirkpatrick M.D. Diagnosis: C34.10 - Malignant neoplasm of upper lobe, unspecified bronchus or lung, Diagnosed 01/23/2023 (Active) Stage IIIC, T3, N3, M0 Radiotherapy to date: Course: Lung 2022, Treatment Site: RT [id number], Ref. ID: [id number], Energy: 6X, Dose/Fx (cGy): 200, #Fx: , Dose Correction (cGy): 0, Total Dose (cGy): 4,200, Start Date: 03/24/2023, Elapsed Days: 43 Reason for visit: The patient is being seen today as part of his regularly scheduled weekly on treatment visits to assess for acute toxicities from radiotherapy. Review of Systems: No complaints. He has no difficulty with breathing. He has a mild cough with small amounts of phlegm production, occasionally greenish color. He has no unusual pain. The pain in the right lower quadrant area persists. It is stable. He has occasional mild dysphagia for solids unassociated with pain. Vital Signs: Performed on 05/06/2023 8:31 AM BMI - 20.447 kg/m2, Height - 71 in, Weight - 146.6 lbs, Temperature - 97.3 f, Pulse - 89 /min, Respiration - 16 /min, O2 Sat - 91 % (low), Pain - 0, Fatigue - 5 and BP - 121/ 68 mm(hg). Physical Exam: Lungs clear without rales, rhonchi, or wheezes. Heart rhythm regular. No murmur or gallop. Tenderness over the lower anterior chest is unchanged. No bone tenderness elsewhere. He is ambulatory without assistance. Imaging: Radiation therapy imaging related to accurate target localization (i.e. KV, MV and CBCT) was reviewed. Appropriate changes, if any, were made to ensure treatment accuracy. Plan: Continue treatment per plan. Signed by: Tee Villagran 05/06/2023 2:35:35 PM
[2023-05-13 07:45] VITALS: BP 108/70; PULSE 105; RESP 18; TEMP 35.7; O2SAT 95; BMI 20.2
[2023-05-13 08:03] LABS: Basophils % 0.6 %; Eosinophils % 0.3 %; Hematocrit 32.2 % (37-53); Lymphocytes # 0.1 10^3/uL (0.8-4.8); Lymphocytes % 3.6 %; Mean Corpuscular Hemoglobin 28.4 pg (27-33); Mean Corpuscular Volume 88.7 fl (82-101); Mean Platelet Volume 8.8 fL (7.4-10.4); Monocytes # 0.2 10^3/uL (0.2-0.9); Neutrophils # 3.02 10^3/uL (1.8-7.7); Neutrophils % 89.6 %; Nucleated Red Blood Cells % 0 %; Platelet Count 401 10^3/cmm (157-399); Red Blood Count 3.63 10^6/uL (3.85-5.65); Red Cell Distribution Width 19.3 % (12.1-15.1); White Blood Count 3.37 10^3/uL (3.29-11.43)
[2023-05-13 08:18] LABS: Alanine Aminotransferase 12 U/L (0-41); Albumin Level 3.7 g/dL (3.5-5.2); Alkaline Phosphatase 130 U/L (40-130); Blood Urea Nitrogen 15 mg/dL (8-23); Calcium 8.6 mg/dL (8.5-10.5); Carbon Dioxide 24 mmol/L (22-29); Chloride 100 mmol/L (98-107); Globulin 2.3 g/dL (1.3-4.6); Glucose 231 mg/dL (65-115); Osmolality Calculated 288 mOsm/kg (285-295); Sodium 135 mmol/L (136-145); Total Bilirubin 0.3 mg/dL (0.15-1.2)
[2023-05-13 08:20] LABS: Anion Gap 16.2 (5-19); Aspartate Amino Transferase 17 U/L (0-40); Potassium 5.2 mmol/L (3.5-5.1)
[2023-05-13] MEDS: sodium chloride 0.9% 250 ML 75 ML IV (10:56)
[2023-05-13] MEDS: acetaminophen 325 mg Tablet 650 MG PO (10:57)
[2023-05-13] MEDS: palonosetron 0.25 mg/5 mL SDV IVP (10:59)
[2023-05-13] MEDS: famotidine 20 mg/2 mL INJ IVP (11:00)
[2023-05-13] MEDS: diphenhydrAMINE 50 mg/mL SDV 1mL 25 MG IVP (11:01)
[2023-05-13] MEDS: dexamethasone 20 MG in sodium chloride 0.9% 50 ML 188 MG IV (11:44)
[2023-05-13] MEDS: PACLitaxeL 90 MG in sodium chloride 0.9%(non-DEHP) 250 ML 265 MG IV (12:02)
--- NOTE | 2023-05-13 13:08 | ONCRAD TMN_ITS ---
Radiation Oncology Weekly Treatment Management Patient: Heidi Angeles MR#: [id number] : 1955 Attending Physician: Sanchez Hernandez Date of Service: 05/13/2023 Referring Physician(s) : Maynor Kirkpatrick M.D. Diagnosis: C34.10 - Malignant neoplasm of upper lobe, unspecified bronchus or lung, Diagnosed 01/23/2023 (Active) Stage IIIC, T3, N3, M0 Radiotherapy to date: Course: Lung 2022, Treatment Site: RT [id number], Ref. ID: [id number], Energy: 6X, Dose/Fx (cGy): 200, #Fx: , Dose Correction (cGy): 0, Total Dose (cGy): 4,800, Start Date: 03/24/2023, Elapsed Days: 50 Reason for visit: The patient is being seen today as part of their regularly scheduled weekly on treatment visits to assess for acute toxicities from radiotherapy. Review of Systems: Patient denies any shortness of breath, productive cough, hemoptysis, or sputum. He denies fever or chills. He reports that overall he is swallowing well. Vital Signs: Performed on 05/13/2023 9:42 AM BMI - 20.208 kg/m2, Height - 72 in, Weight - 149 lbs, Temperature - 96.3 f, Pulse - 105 /min (high), Respiration - 18 /min, O2 Sat - 95 % (low), Pain - 6, Fatigue - 0 and BP - 108/ 70 mm(hg). Physical Exam: Alert and oriented male appearing his stated age. Lungs clear to auscultation bilaterally. Cardiovascular exam reveals regular rhythm. Patient ambulatory without assistance. Imaging: Radiation therapy imaging related to accurate target localization (i.e. KV, MV and CBCT) was reviewed. Appropriate changes, if any, were made to ensure treatment accuracy. Plan: Continue prescribed treatment. Patient receiving chemotherapy today also. Signed by: Sanchez Hernandez 05/13/2023 1:08:11 PM
[2023-05-13] MEDS: CARBOplatin 280 MG in sodium chloride 0.9% 500 ML 528 MG IV (13:12)
[2023-05-13 14:30] VITALS: BP 128/80; PULSE 87; RESP 16; TEMP 36.1; O2SAT 95
--- NOTE | 2023-05-13 14:52 | PC.NURSE ---
PICC Line Removal PICC line was removed at 1430 on 05/13/[address] Kirkpatrick. Catheter tip was intact and measured at 40 cm. Pt tolerated well. Site was dressed with gauze and transparent dressing.
== END 2023-05-30 23:59 | disposition home or self-care (01) ==
PROVIDERS: Internal Medicine Medical Oncology; Nurse Practitioner Family; Absent Provider Radiology Radiation Oncology; PCP Family Medicine; Visit Provider Radiology Radiation Oncology
DX: C34.81 Malignant neoplasm of overlapping sites of right bronchus and lung; Z51.0 Encounter for antineoplastic radiation therapy
CPT/HCPCS: 77014; 77336; 77386; 77427; 80053; 85025; 96367; 96375; 96413; 96417; 99024; J1100; J1200; J2469; J3490; J7040; J7050; J9045; J9267

== ENCOUNTER 2023-05-20 07:59 | Outpatient (CLI) | payer MEDICARE, SELFPAY ==
--- NOTE | 2023-05-20 08:30 | USCV_ITS ---
Karthik Gordon Age: 67 Gender: M : 1955 Exam Date: 05/20/2023 08:16 Ordering Phys: Maynor Kirkpatrick MD Technologist: MARIE Exam Location: [facility] – [place] Indication: LE EDEMA HISTORY: Lower extremity edema. PROCEDURES: Venous duplex imaging was performed in bilateral lower extremities. The following venous structures were evaluated: common femoral vein, profunda vein, proximal portion of the greater saphenous vein, superficial femoral vein, and the popliteal vein. In addition, the posterior tibial and peroneal trunk were evaluated. Serial compression, augmentation maneuvers, and spectral Doppler flow evaluation were performed. FINDINGS: No evidence of DVT seen in any vessel visualized at this time. CONCLUSIONS No evidence of right lower extremity DVT. No evidence of left lower extremity DVT. Mika Wagoner MD (Electronically Signed) Final Date: 20 May 2023 11:25 S
--- NOTE | 2023-05-20 11:15 | MR_ITS ---
WS: [id number] MRI BRAIN WITH AND WITHOUT CONTRAST HISTORY: right arm numbness, bilateral leg swelling COMPARISON: None available. TECHNIQUE: Multiplanar imaging performed through the brain with MultiHance 13 ml's IV. No acute infarcts are seen. Grant-white matter differentiation is well preserved. Mild atrophy and vol ume loss is symmetric bilaterally. Moderate bilateral small vessel ischemic disease in the supratentorial white matter. Slightly greater is small vessel ischemic disease on the RIGHT. Additional mild ischemic disease in the riya. No prio r hemorrhage. Ventricles and extra-axial spaces are normal. Clivus and pituitary gland are normal. Visualized posterior fossa and brainstem are also normal. Postcontrast images are negative for masses or vascular malformations. Very mild dural enhancement bu t no nodularity. No meningeal enhancement. There is also corresponding mild dural increased signal on the diffusion imaging. There is no pachymeningeal enhancement. No nodularity in the basal cisterns. No metastatic disease to the brain Dural venous sinuses are normal. Paranasal sinuses: Well aerated with no significant disease. Mastoid air cells: Normal. Calvarium and scalp: Normal. IMPRESSION: 1. No metastatic nodules or masses within the brain. 2. No acute infarct or hemorrhage. 3. Very mild smooth dural thickening and enhancement. This is very nonspecific. Can be seen with int racranial hypotension, posttreatment related to chemotherapy and inflammatory/infectious etiologies. 4. Notified Maynor Kirkpatrick MD at 05/20/2023 1:38 PM.
[2023-05-20] MEDS: gadobenate dimeglumine 20 mL vial IV (11:47)
== END 2023-05-20 08:00 | disposition home or self-care (01) ==
PROVIDERS: PCP Family Medicine; Visit Provider Internal Medicine Medical Oncology
DX: R20.0 Anesthesia of skin (principal); C34.81 Malignant neoplasm of overlapping sites of right bronchus and lung; R60.0 Localized edema
CPT/HCPCS: 70553; 93970; A9577

== ENCOUNTER 2023-06-05 10:53 | Oncology outpatient (recurring) (ONCR) | payer MEDICARE, SELFPAY ==
--- NOTE | 2023-06-01 16:25 | ONCRAD TMN_ITS ---
Radiation Oncology Weekly Treatment Management Patient: Heidi Angeles#: [id number] : 1955 Attending Physician: Alexandr Drake Date of Service: 06/01/2023 Referring Physician(s) : Maynor Kirkpatrick M.D. Diagnosis: C34.10 - Malignant neoplasm of upper lobe, unspecified bronchus or lung, Diagnosed 01/23/2023 (Active) Stage IIIC, T3, N3, M0 Radiotherapy to date: Course: Lung 2022, Treatment Site: RT [id number], Ref. ID: [id number], Energy: 6X, Dose/Fx (cGy): 200, #Fx: , Dose Correction (cGy): 0, Total Dose (cGy): 5,200, Start Date: 03/24/2023, Elapsed Days: 69 Reason for visit: The patient is being seen today as part of their regularly scheduled weekly on treatment visits to assess for acute toxicities from radiotherapy. Review of Systems: Eating ok. Drinking a lot of fluids. No N or V. Not on diuretic or BP meds. Not dizzy on standing. Not really active due to heat. No sore throat. Not smoking. Vital Signs: BP 96/55 P 128 Physical Exam: Imaging: Radiation therapy imaging related to accurate target localization (i.e. KV, MV and CBCT) was reviewed. Appropriate changes, if any, were made to ensure treatment accuracy. Plan: Good tolerance of treatment. BP low pulse high suggests dehydration. Encouraged increasing fluid intake, salt and caffeine. Check BP at home and recheck here again this week. Signed by: Alexandr Drake 06/01/2023 4:24:41 PM
[2023-06-03 10:26] VITALS: BP 106/70; PULSE 97; RESP 16; TEMP 36.6; O2SAT 97
[2023-06-03 10:37] VITALS: BP 106/70; PULSE 97; RESP 16; TEMP 36.6; O2SAT 97
[2023-06-03 10:48] LABS: Basophils % 0.5 %; Eosinophils # 0.1 10^3/uL (0.0-0.8); Eosinophils % 4.7 %; Hematocrit 31.8 % (37-53); Lymphocytes # 0.3 10^3/uL (0.8-4.8); Lymphocytes % 14.1 %; Mean Corpuscular HGB Conc 32.4 g/dL (30-55); Mean Corpuscular Hemoglobin 29.5 pg (27-33); Mean Corpuscular Volume 91.1 fl (82-101); Mean Platelet Volume 8.4 fL (7.4-10.4); Monocytes # 0.2 10^3/uL (0.2-0.9); Monocytes % 8.5 %; Neutrophils # 1.53 10^3/uL (1.8-7.7); Neutrophils % 71.7 %; Nucleated Red Blood Cells % 0 %; Platelet Count 185 10^3/cmm (157-399); Red Blood Count 3.49 10^6/uL (3.85-5.65); Red Cell Distribution Width 20.9 % (12.1-15.1); White Blood Count 2.13 10^3/uL (3.29-11.43)
[2023-06-03 11:24] LABS: Alanine Aminotransferase 22 U/L (0-41); Albumin Level 3.9 g/dL (3.5-5.2); Alkaline Phosphatase 142 U/L (40-130); Aspartate Amino Transferase 19 U/L (0-40); Blood Urea Nitrogen 22 mg/dL (8-23); Calcium 9.6 mg/dL (8.5-10.5); Carbon Dioxide 28 mmol/L (22-29); Chloride 99 mmol/L (98-107); Globulin 2.7 g/dL (1.3-4.6); Glomerular Filtration Rate 96.1 mL/min (90-130); Glucose 90 mg/dL (65-115); Osmolality Calculated 287 mOsm/kg (285-295); Sodium 137 mmol/L (136-145); Total Bilirubin 0.5 mg/dL (0.15-1.2); Total Protein 6.6 g/dL (6.6-8.7)
[2023-06-03 11:25] LABS: Thyroid Stimulating Hormone 1.05 uIU/mL (0.27-4.20)
[2023-06-03 11:39] LABS: Anion Gap 14.8 (5-19); Potassium 4.8 mmol/L (3.5-5.1)
--- NOTE | 2023-06-08 21:33 | N.ONRD TS_ITS ---
Radiation Oncology Treatment Summary Patient: Heidi>Becca MR#: [id number] : 1955> Age: 67> Sex: Male Dictated by: Alexandr Drake Date of Service: 06/05/2023 Referring Physician(s) : Myanor Kirkpatrick M.D. Diagnosis: C34.10 - Malignant neoplasm of upper lobe, unspecified bronchus or lung, Diagnosed 01/23/2023 (Active) Stage IIIC, T3, N3, M0 Radiotherapy to Date: Course: Lung 2022, Treatment Site: RT [id number], Ref. ID: [id number], Energy: 6X, Dose/Fx (cGy): 200, #Fx: 30 / 30, Dose Correction (cGy): 0, Total Dose (cGy): 6,000, Start Date: 03/24/2023, End Date: 06/05/2023Elapsed Days: 73 Clinical Summary: He developed a neutropenic fever from chemotherapy and was hospitalized from 04/25 to 04/29/2023. He then spent time off treatment at home and did complete treatment after a significant break overall. He had asymptomatic hypotension treated with fluids. He had no sore at the end of treatment. He did stop smoking. He was inactive at home at the end of treatment Plan: End of treatment today. Returned patient to chemo with immunotherapy. Signed by: Alexandr Drake>06/08/2023 9:31:55 PM <<Signature on F
== END 2023-06-30 23:59 | disposition home or self-care (01) ==
PROVIDERS: Internal Medicine Medical Oncology; PCP Family Medicine; Visit Provider Radiology Radiation Oncology
DX: Z51.0 Encounter for antineoplastic radiation therapy (principal); C34.81 Malignant neoplasm of overlapping sites of right bronchus and lung; Z79.899 Other long term (current) drug therapy; Z87.891 Personal history of nicotine dependence
CPT/HCPCS: 36415; 77336; 77386; 80053; 84443; 85025; 99024

== ENCOUNTER 2023-06-22 07:36 | Outpatient (CLI) | payer MEDICARE, SELFPAY ==
--- NOTE | 2023-06-22 08:00 | CT_ITS ---
WS: [email or web address] CT chest w con* [id number] HISTORY: lung cancer TECHNIQUE: Axial imaging performed through the thorax. Coronal and sagittal reformats are submitted. All CT scans at [facility] use at least one of these dose optimization techniques: automated exposure control; mA and/or kV adjustment per patient size (includes targeted exams where dose is mat ched to clinical indication); or iterative reconstruction. CONTRAST: Omnipaque 350; 100 mL IV. DLP: 326.79 mGy.cm COMPARISON: 04/04/2023 Lungs and central airway: Reidentified is the cavitary pleural-based mass superior segment RIGHT lowe r lobe. This mass invades directly into the chest wall and intercostal muscles and also through the f issure. Mass extends over a length of 6.4 cm x 6.3 x 4.4 cm. There is direct invasion and destruction of what is probably the seventh and eighth ribs and possibly the ninth rib. There is been a slight i mprovement in the soft tissue in the cavitary component since the prior examination. Chronic emphysem a. No additional masses or nodules. Pleura: No effusion. Heart and pericardium: Normal size heart with no pericardial effusion. Mediastinum and volodymyr: Mediastinal and hilar lymphadenopathy is moderately improved since the prior ex amination. Bilateral hilar lymph nodes. The largest at 13 mm on the LEFT. RIGHT paratracheal lymph no berta have also decreased in size. Vessels: Moderate atherosclerosis aorta. Calcification extends into the great vessels. Normal sized p ulmonary artery. New pulmonary emboli are noted in the RIGHT lower lobe segmental branches. I suspect there is also a smaller segmental branch emboli in the LEFT lower lobe. Mixed density in the SVC may be mixing of blood and contrast small amount of thrombus cannot be excluded. Chest wall and lower neck: No soft tissue masses. Upper abdomen: Prior cholecystectomy. Bilateral upper pole incompletely visualized low-attenuation ma sses within each kidney. Extensive vascular calcifications. Common bile duct is prominent but stable. Mixed attenuation in the portal vein is probably mixing of venous and nonopacified blood. Osseous structures: No new osseous lesions are identified. Mild stable anterior wedging of T5. Remote healed rib fractures in several of the posterior RIGHT ribs. IMPRESSION: 1. Mild improvement in the cavitary neoplastic mass in the RIGHT chest wall which has been previously described. Mass measures 6.4 x 6.3 x 4.4 cm. 2. Moderate improvement in the mediastinal and hilar lymphadenopathy since 04/04/2023. 3. Direct invasion with destruction of the RIGHT lateral seventh and eighth ribs. No interval change. 4. Bilateral renal low-attenuation masses. No increase in size. 5. New segmental RIGHT lower lobe pulmonary emboli. Smaller emboli suspected in the LEFT lower lobe. Notified Cheryl at Dr. Kirkpatrick's office at 06/22/2023 1:18 PM.
[2023-06-22] MEDS: iohexol 350 mg/mL 500 mL Btl (per mL) IV (08:01)
== END 2023-06-22 07:37 | disposition home or self-care (01) ==
LOC: RAD 07:37
PROVIDERS: PCP Family Medicine; Visit Provider Internal Medicine Medical Oncology
DX: C34.81 Malignant neoplasm of overlapping sites of right bronchus and lung (principal); I26.99 Other pulmonary embolism without acute cor pulmonale; N28.89 Other specified disorders of kidney and ureter; M89.9 Disorder of bone, unspecified
CPT/HCPCS: 71260; Q9967

== ENCOUNTER 2023-07-01 08:19 | Oncology outpatient (recurring) (ONCR) | payer MEDICARE, SELFPAY ==
[2023-07-01 08:13] VITALS: BP 101/63; PULSE 86; RESP 16; TEMP 36.2
[2023-07-01 08:41] VITALS: BP 106/70; PULSE 56; RESP 16; TEMP 36.6; O2SAT 98
[2023-07-01 08:48] LABS: Basophils % 0.9 %; Eosinophils # 0.1 10^3/uL (0.0-0.8); Eosinophils % 2.7 %; Hematocrit 36.6 % (37-53); Lymphocytes # 0.4 10^3/uL (0.8-4.8); Lymphocytes % 9.4 %; Mean Corpuscular HGB Conc 33.3 g/dL (30-55); Mean Corpuscular Hemoglobin 31.9 pg (27-33); Mean Corpuscular Volume 95.8 fl (82-101); Mean Platelet Volume 8.6 fL (7.4-10.4); Monocytes # 0.5 10^3/uL (0.2-0.9); Monocytes % 11.5 %; Neutrophils # 3.34 10^3/uL (1.8-7.7); Neutrophils % 75.1 %; Nucleated Red Blood Cells % 0 %; Platelet Count 315 10^3/cmm (157-399); Red Blood Count 3.82 10^6/uL (3.85-5.65); Red Cell Distribution Width 17.2 % (12.1-15.1); White Blood Count 4.45 10^3/uL (3.29-11.43)
[2023-07-01 09:15] LABS: Alanine Aminotransferase 19 U/L (0-41); Albumin Level 4.3 g/dL (3.5-5.2); Alkaline Phosphatase 137 U/L (40-130); Anion Gap 14.4 (5-19); Aspartate Amino Transferase 15 U/L (0-40); Blood Urea Nitrogen 20 mg/dL (8-23); Calcium 9.3 mg/dL (8.5-10.5); Carbon Dioxide 26 mmol/L (22-29); Chloride 99 mmol/L (98-107); Globulin 2.5 g/dL (1.3-4.6); Glomerular Filtration Rate 111.8 mL/min (90-130); Glucose 116 mg/dL (65-115); Osmolality Calculated 284 mOsm/kg (285-295); Potassium 4.4 mmol/L (3.5-5.1); Sodium 135 mmol/L (136-145); Thyroid Stimulating Hormone 3.03 uIU/mL (0.27-4.20); Total Bilirubin 0.6 mg/dL (0.15-1.2); Total Protein 6.8 g/dL (6.6-8.7)
[2023-07-01] MEDS: sodium chloride 0.9% 250 ML 75 ML IV (10:51)
[2023-07-01] MEDS: durvalumab 1,500 MG in sodium chloride 0.9% 250 ML 280 MG IV (10:51)
[2023-07-01 12:33] VITALS: BP 91/50; PULSE 67; RESP 18; TEMP 36.6; O2SAT 93
== END 2023-07-01 23:59 | disposition home or self-care (01) ==
PROVIDERS: Internal Medicine Medical Oncology; PCP Family Medicine; Visit Provider Radiology Radiation Oncology
DX: C34.81 Malignant neoplasm of overlapping sites of right bronchus and lung; Z79.899 Other long term (current) drug therapy; Z87.891 Personal history of nicotine dependence; T45.1X5A Adverse effect of antineoplastic and immunosuppressive drugs, initial encounter; D64.81 Anemia due to antineoplastic chemotherapy; Z51.11 Encounter for antineoplastic chemotherapy
CPT/HCPCS: 80053; 84443; 85025; 96413; 96415; 99214; J7050; J9173

== ENCOUNTER 2023-07-29 08:45 | Oncology outpatient (recurring) (ONCR) | payer MEDICARE, SELFPAY ==
[2023-07-29 08:38] VITALS: BP 145/85; PULSE 109; RESP 16; TEMP 36.6; O2SAT 98
[2023-07-29 09:12] LABS: Eosinophils # 0.2 10^3/uL (0.0-0.8); Eosinophils % 5.3 %; Hematocrit 34.8 % (37-53); Lymphocytes # 0.4 10^3/uL (0.8-4.8); Mean Corpuscular HGB Conc 32.2 g/dL (30-55); Mean Corpuscular Hemoglobin 31.5 pg (27-33); Mean Platelet Volume 8.8 fL (7.4-10.4); Monocytes # 0.4 10^3/uL (0.2-0.9); Neutrophils # 2.07 10^3/uL (1.8-7.7); Neutrophils % 68.7 %; Nucleated Red Blood Cells % 0 %; Platelet Count 284 10^3/cmm (157-399); Red Blood Count 3.55 10^6/uL (3.85-5.65); Red Cell Distribution Width 12.9 % (12.1-15.1); White Blood Count 3.01 10^3/uL (3.29-11.43)
[2023-07-29 09:38] LABS: Alanine Aminotransferase 11 U/L (0-41); Albumin Level 4.2 g/dL (3.5-5.2); Alkaline Phosphatase 144 U/L (40-130); Anion Gap 16.2 (5-19); Aspartate Amino Transferase 15 U/L (0-40); Blood Urea Nitrogen 19 mg/dL (8-23); Calcium 9.3 mg/dL (8.5-10.5); Carbon Dioxide 25 mmol/L (22-29); Chloride 104 mmol/L (98-107); Globulin 2.6 g/dL (1.3-4.6); Glomerular Filtration Rate 74.1 mL/min (90-130); Glucose 101 mg/dL (65-115); Osmolality Calculated 294 mOsm/kg (285-295); Potassium 4.2 mmol/L (3.5-5.1); Sodium 141 mmol/L (136-145); Total Bilirubin 0.5 mg/dL (0.15-1.2); Total Protein 6.8 g/dL (6.6-8.7)
[2023-07-29] MEDS: durvalumab 1,500 MG in sodium chloride 0.9% 250 ML 280 MG IV (12:35)
[2023-07-29] MEDS: sodium chloride 0.9% 250 ML 100 ML IV (12:35)
[2023-07-29 13:54] VITALS: BP 128/73; PULSE 99; O2SAT 94
== END 2023-07-29 23:59 | disposition home or self-care (01) ==
PROVIDERS: Nurse Practitioner Family; PCP Family Medicine; Visit Provider Radiology Radiation Oncology
DX: Z51.0 Encounter for antineoplastic radiation therapy (principal); C34.81 Malignant neoplasm of overlapping sites of right bronchus and lung; Z79.899 Other long term (current) drug therapy; Z87.891 Personal history of nicotine dependence; T45.1X5A Adverse effect of antineoplastic and immunosuppressive drugs, initial encounter; D64.81 Anemia due to antineoplastic chemotherapy; Z51.11 Encounter for antineoplastic chemotherapy
CPT/HCPCS: 80053; 84443; 85025; 96413; 99214; J7050; J9173

== ENCOUNTER 2023-08-26 08:34 | Oncology outpatient (recurring) (ONCR) | payer MEDICARE, SELFPAY ==
[2023-08-26 08:38] VITALS: BP 122/67; PULSE 103; RESP 20; TEMP 36.3
[2023-08-26 09:02] LABS: Eosinophils # 0.2 10^3/uL (0.0-0.8); Eosinophils % 4.1 %; Hematocrit 38.3 % (37-53); Lymphocytes # 0.5 10^3/uL (0.8-4.8); Lymphocytes % 11.5 %; Mean Corpuscular HGB Conc 32.4 g/dL (30-55); Mean Corpuscular Hemoglobin 30.4 pg (27-33); Mean Corpuscular Volume 93.9 fl (82-101); Mean Platelet Volume 9.2 fL (7.4-10.4); Monocytes # 0.4 10^3/uL (0.2-0.9); Monocytes % 9.7 %; Neutrophils # 2.86 10^3/uL (1.8-7.7); Neutrophils % 73.4 %; Nucleated Red Blood Cells % 0 %; Platelet Count 319 10^3/cmm (157-399); Red Blood Count 4.08 10^6/uL (3.85-5.65); Red Cell Distribution Width 12.2 % (12.1-15.1)
[2023-08-26 09:25] LABS: Alanine Aminotransferase 9 U/L (0-41); Alkaline Phosphatase 168 U/L (40-130); Anion Gap 13.9 (5-19); Aspartate Amino Transferase 12 U/L (0-40); Blood Urea Nitrogen 15 mg/dL (8-23); Calcium 9.2 mg/dL (8.5-10.5); Carbon Dioxide 26 mmol/L (22-29); Chloride 103 mmol/L (98-107); Globulin 2.6 g/dL (1.3-4.6); Glomerular Filtration Rate 95.8 mL/min (90-130); Glucose 80 mg/dL (65-115); Osmolality Calculated 288 mOsm/kg (285-295); Potassium 3.9 mmol/L (3.5-5.1); Sodium 139 mmol/L (136-145); Thyroid Stimulating Hormone 2.22 uIU/mL (0.27-4.20); Total Bilirubin 0.2 mg/dL (0.15-1.2); Total Protein 6.6 g/dL (6.6-8.7)
[2023-08-26] MEDS: durvalumab 1,500 MG in sodium chloride 0.9% 250 ML 280 MG IV (11:28)
[2023-08-26 12:51] VITALS: BP 151/92; PULSE 92; RESP 18; TEMP 36.6; O2SAT 97
== END 2023-08-26 23:59 | disposition home or self-care (01) ==
PROVIDERS: Internal Medicine Medical Oncology; PCP Family Medicine; Visit Provider Radiology Radiation Oncology
DX: Z51.0 Encounter for antineoplastic radiation therapy (principal); C34.81 Malignant neoplasm of overlapping sites of right bronchus and lung; Z79.899 Other long term (current) drug therapy; Z87.891 Personal history of nicotine dependence; T45.1X5A Adverse effect of antineoplastic and immunosuppressive drugs, initial encounter; D64.81 Anemia due to antineoplastic chemotherapy; Z53.9 Procedure and treatment not carried out, unspecified reason; Z51.11 Encounter for antineoplastic chemotherapy
CPT/HCPCS: 80053; 84443; 85025; 96413; 99214; J7050; J9173

== ENCOUNTER 2023-09-16 12:57 | Outpatient (CLI) | payer MEDICARE, SELFPAY ==
--- NOTE | 2023-09-16 13:00 | CT_ITS ---
WS: [email or web address] CT CHEST TECHNIQUE: Contrast enhanced CT of the chest with coronal and sagittal reformatted images. CLINICAL INFORMATION: lung cancer; fatigue COMPARISON: CT 06/22/2023 DLP: 319.[address] scans at [facility] use at least one of these dose optimization techniques: automated e xposure control; mA and/or kV adjustment per patient size (includes targeted exams where dose is matc hed to clinical indication); or iterative reconstruction. FINDINGS: Previously described cavitary neoplasm in the superior segment RIGHT lower lobe involving the RIGHT p osterior chest wall previously described measuring 5.5 x 2.9 x 6.0 cm today. This measures a few mill imeters smaller in some dimensions compared to previous with air-fluid level. Increased pleural thick ening with increased surrounding patchy infiltrate progressed compared to previous may be due to radi ation changes. Stable destructive changes involving the associated adjacent RIGHT lateral seventh, ei ghth, and ninth ribs. New 6 mm opacity in the RIGHT middle lobe laterally near the fissure. This is n onspecific and may be inflammatory but new from previous Normal caliber thoracic aorta. No new or progressed mediastinal or hilar lymphadenopathy. No subcarin al lymphadenopathy. Coronary calcification. No axillary lymphadenopathy. Partially visualized bilateral renal cysts. Splenic granulomas. Air-fluid level in the stomach. Meg cystectomy. Normal portal vein and splenic vein. Adrenal glands are normal. Compression fracture supe r endplate T7 with mild compression of the superior endplate. Associated sclerosis. No retropulsion. Loss of approximately 30% vertebral body height. This is new compared to 06/22/2023 IMPRESSION: 1. Previously described cavitary pleural-based mass in the superior segment RIGHT lower lobe posteri tyler is not significantly changed. Associated involvement of the chest wall with destructive changes RIGHT seventh, eighth, and ninth ribs similar to previous. 2. Progressed fibrotic appearing infiltrates about the cavitary mass most likely due to to radiation changes. Recommend correlation for pneumonia. 3. New 6 mm opacity in the RIGHT upper lobe laterally near the fissure. This is nonspecific and may be inflammatory but new from previous. Recommend 6-month follow-up. 4. No new or progressed mediastinal or hilar lymphadenopathy. 5. New compression fracture superior plate T7 with a loss of approximate 30% vertebral body height. No retropulsion. This is new since 06/22/2023. 6. No other interval changes.
[2023-09-16] MEDS: iohexol 350 mg/mL 500 mL Btl (per mL) IV (13:35)
== END 2023-09-16 12:58 | disposition home or self-care (01) ==
PROVIDERS: PCP Family Medicine; Visit Provider Internal Medicine Medical Oncology
DX: C34.81 Malignant neoplasm of overlapping sites of right bronchus and lung (principal); R53.83 Other fatigue; R91.8 Other nonspecific abnormal finding of lung field; M89.8X8 Other specified disorders of bone, other site; M48.54XA Collapsed vertebra, not elsewhere classified, thoracic region, initial encounter for fracture
CPT/HCPCS: 71260; Q9967

== ENCOUNTER 2023-09-23 09:18 | Oncology outpatient (recurring) (ONCR) | payer MEDICARE, SELFPAY ==
[2023-09-23 10:10] VITALS: BP 133/71; PULSE 105; RESP 16; TEMP 36.3; O2SAT 95
[2023-09-23 10:24] LABS: Basophils % 0.8 %; Eosinophils # 0.2 10^3/uL (0.0-0.8); Eosinophils % 4.3 %; Hematocrit 40.9 % (37-53); Lymphocytes # 0.5 10^3/uL (0.8-4.8); Lymphocytes % 13.4 %; Mean Corpuscular HGB Conc 32.3 g/dL (30-55); Mean Corpuscular Hemoglobin 29.7 pg (27-33); Mean Corpuscular Volume 91.9 fl (82-101); Mean Platelet Volume 8.5 fL (7.4-10.4); Monocytes # 0.3 10^3/uL (0.2-0.9); Monocytes % 8.6 %; Neutrophils # 2.89 10^3/uL (1.8-7.7); Neutrophils % 72.6 %; Nucleated Red Blood Cells % 0 %; Platelet Count 275 10^3/cmm (157-399); Red Blood Count 4.45 10^6/uL (3.85-5.65); Red Cell Distribution Width 12.5 % (12.1-15.1); White Blood Count 3.97 10^3/uL (3.29-11.43)
[2023-09-23 10:51] LABS: Alanine Aminotransferase 14 U/L (0-41); Alkaline Phosphatase 147 U/L (40-130); Anion Gap 13.6 (5-19); Aspartate Amino Transferase 16 U/L (0-40); Blood Urea Nitrogen 20 mg/dL (8-23); Calcium 9.1 mg/dL (8.5-10.5); Carbon Dioxide 28 mmol/L (22-29); Chloride 102 mmol/L (98-107); Creatinine Clr Calc Pharmacy 93.6224; Globulin 3.1 g/dL (1.3-4.6); Glomerular Filtration Rate 95.8 mL/min (90-130); Glucose 97 mg/dL (65-115); Osmolality Calculated 291 mOsm/kg (285-295); Potassium 4.6 mmol/L (3.5-5.1); Sodium 139 mmol/L (136-145); Thyroid Stimulating Hormone 3.93 uIU/mL (0.27-4.20); Total Bilirubin 0.3 mg/dL (0.15-1.2); Total Protein 7.1 g/dL (6.6-8.7)
[2023-09-23] MEDS: durvalumab 1,500 MG in sodium chloride 0.9% 250 ML 280 MG IV (12:48)
[2023-09-23 13:00] LABS: Free T4 Free Thyroxine 0.96 ng/dL (0.82-1.77)
[2023-09-23 14:12] VITALS: BP 100/66; PULSE 94; TEMP 36.3; O2SAT 97
== END 2023-09-23 23:59 | disposition home or self-care (01) ==
PROVIDERS: Internal Medicine; Internal Medicine Medical Oncology; PCP Family Medicine; Visit Provider Radiology Radiation Oncology
DX: Z51.0 Encounter for antineoplastic radiation therapy (principal); C34.81 Malignant neoplasm of overlapping sites of right bronchus and lung; Z79.899 Other long term (current) drug therapy; Z87.891 Personal history of nicotine dependence; T45.1X5A Adverse effect of antineoplastic and immunosuppressive drugs, initial encounter; D64.81 Anemia due to antineoplastic chemotherapy; Z53.9 Procedure and treatment not carried out, unspecified reason
CPT/HCPCS: 99214; 80053; 84439; 84443; 85025; 96413; J7050; J9173

== ENCOUNTER 2023-10-12 07:48 | Outpatient (CLI) | payer MEDICARE, SELFPAY ==
--- NOTE | 2023-10-12 08:30 | CT_ITS ---
WS: [id number] CT ABDOMEN AND PELVIS WITH CONTRAST HISTORY: abdominal pain, RIGHT upper quadrant pain for 1 year. History of lung cancer. TECHNIQUE: Imaging performed of the abdomen and pelvis with IV contrast. Single phase imaging of the abdomen. Coronal and sagittal reformats are submitted. All CT scans at [facility] use at tray st one of these dose optimization techniques: automated exposure control; mA and/or kV adjustment per patient size (includes targeted exams where dose is matched to clinical indication); or iterative re construction. IV CONTRAST: Omnipaque 350; 100 mL IV. Oral contrast: Yes. DLP: 303.60 mGy.cm COMPARISON: 04/25/2023, 12/13/2022, chest CT 09/16/2023 Lower thorax: There is mild interstitial thickening and reticulation at the RIGHT lung base. Previous ly described cavitary lesion is not included on this CT of the abdomen. Heart is normal size. Small h iatal hernia. Liver/biliary system: Normal size with no intrahepatic dilatation. Gallbladder: Prior cholecystectomy. The common bile duct is dilated to 9.5 mm which is similar to darin or studies. Normal tapering to the pancreatic head. Pancreas: Normal size pancreas and pancreatic duct. No adjacent inflammation. Spleen: Normal spleen with numerous granulomata. Adrenal glands: Normal. Right kidney: Normal size kidney with numerous cysts. The largest cyst from the mid kidney measures 1 .8 x 2.7 cm. Several of the cysts have slightly increased Hounsfield units but similar to prior studi es. No renal obstruction. Left kidney: Nonobstructing calcification in the central renal pelvis. Numerous cysts are identified. Largest cyst from the upper pole measures 4.0 x 4.0 cm. No solid mass or obstruction. Some of the cy stic masses are too small to characterize. Aorta: Atherosclerotic plaque. Mild ectasia. Mild atherosclerosis of the mesenteric arteries. Lymphadenopathy: None. Free fluid: None. GI tract: Nondistended stomach. No small bowel obstruction. Tortuous distended colon with mild diffus e constipation. Normal appendix. Abdominal wall: Unremarkable abdominal wall. No hernia. Pelvis: No free fluid. LEFT femoral arterial stent. Negative bladder. Bones: Unremarkable. IMPRESSION: 1. Normal liver. 2. Prior cholecystectomy. 3. Bilateral renal cysts are stable since 12/13/2022. 4. No ascites or adenopathy. 5. Constipation. 6. Moderate atherosclerosis aorta.
[2023-10-12] MEDS: iohexol 350 mg/mL 500 mL Btl (per mL) PO (08:47)
[2023-10-12] MEDS: iohexol 350 mg/mL 500 mL Btl (per mL) IV (09:16)
== END 2023-10-12 07:49 | disposition home or self-care (01) ==
LOC: RAD 07:49
PROVIDERS: PCP Family Medicine; Visit Provider Internal Medicine
DX: C34.81 Malignant neoplasm of overlapping sites of right bronchus and lung (principal)
CPT/HCPCS: 74177; Q9967

== ENCOUNTER 2023-10-13 07:50 | Outpatient (CLI) | payer MEDICARE, SELFPAY ==
--- NOTE | 2023-10-13 08:00 | MR_ITS ---
WS: [email or web address] MRI THORACIC SPINE WITHOUT CONTRAST TECHNIQUE: Sagittal T1, T2 and STIR imaging. Axial T2 imaging. Noncontrast imaging obtained. CLINICAL INFORMATION: compresssion fracture COMPARISON: None. FINDINGS: Mild thoracic curve. Acute compression superior end plate T7 vertebral body with loss of approximate 20 to 30% vertebral body height with associated edema. No significant retropulsion. No high-grade siddhartha tral canal stenosis. Cord signal is normal. No other acute compression fractures. Few tiny shallow di sc protrusions in the upper and mid thoracic spine without significant central canal stenosis. Modera te facet arthropathy lower thoracic spine. Pleural thickening and fluid in the RIGHT lower lobe as seen on the recent chest CT. Mild central canal stenosis in the cervical spine on the [employer] imaging worse at C3-C4 with slight ind entation cervical cord. This could be further evaluated with cervical spine MRI. IMPRESSION: 1. Acute compression superior endplate T7 with loss of approximately 20 to 30% vertebral body height and edema. No significant retropulsion. 2. No other acute compression fractures. 3. Mild to moderate central canal stenosis in the cervical spine on the [employer] imaging worse at C3-C4 . Recommend cervical spine MRI for further evaluation.
== END 2023-10-13 07:51 | disposition home or self-care (01) ==
LOC: RAD 07:51
PROVIDERS: PCP Family Medicine; Visit Provider Internal Medicine
DX: C34.81 Malignant neoplasm of overlapping sites of right bronchus and lung (principal); M48.54XA Collapsed vertebra, not elsewhere classified, thoracic region, initial encounter for fracture; M48.02 Spinal stenosis, cervical region
CPT/HCPCS: 72146

== ENCOUNTER 2023-10-21 11:07 | Oncology outpatient (recurring) (ONCR) | payer MEDICARE, SELFPAY ==
[2023-10-21 11:25] LABS: Basophils % 0.8 %; Eosinophils # 0.1 10^3/uL (0.0-0.8); Eosinophils % 1.2 %; Hematocrit 40.1 % (37-53); Lymphocytes # 0.5 10^3/uL (0.8-4.8); Lymphocytes % 10.9 %; Mean Corpuscular HGB Conc 32.4 g/dL (30-55); Mean Corpuscular Hemoglobin 28.8 pg (27-33); Mean Corpuscular Volume 88.7 fl (82-101); Mean Platelet Volume 8.4 fL (7.4-10.4); Monocytes # 0.5 10^3/uL (0.2-0.9); Monocytes % 9.9 %; Neutrophils # 3.75 10^3/uL (1.8-7.7); Nucleated Red Blood Cells % 0 %; Platelet Count 359 10^3/cmm (157-399); Red Blood Count 4.52 10^6/uL (3.85-5.65); White Blood Count 4.87 10^3/uL (3.29-11.43)
[2023-10-21 11:52] LABS: Alanine Aminotransferase 8 U/L (0-41); Alkaline Phosphatase 170 U/L (40-130); Anion Gap 16.6 (5-19); Aspartate Amino Transferase 11 U/L (0-40); Blood Urea Nitrogen 22 mg/dL (8-23); Calcium 9.1 mg/dL (8.5-10.5); Carbon Dioxide 26 mmol/L (22-29); Chloride 101 mmol/L (98-107); Globulin 3.2 g/dL (1.3-4.6); Glomerular Filtration Rate 66.4 mL/min (90-130); Glucose 97 mg/dL (65-115); Osmolality Calculated 291 mOsm/kg (285-295); Potassium 4.6 mmol/L (3.5-5.1); Sodium 139 mmol/L (136-145); Thyroid Stimulating Hormone 6.09 uIU/mL (0.27-4.20); Total Bilirubin 0.4 mg/dL (0.15-1.2); Total Protein 7.2 g/dL (6.6-8.7)
[2023-10-21] MEDS: durvalumab 1,500 MG in sodium chloride 0.9% 250 ML 280 MG IV (13:59)
[2023-10-21 15:16] VITALS: BP 110/68; PULSE 90; TEMP 36.4; O2SAT 92
== END 2023-10-21 23:59 | disposition home or self-care (01) ==
PROVIDERS: Internal Medicine; PCP Family Medicine; Visit Provider Radiology Radiation Oncology
DX: C34.81 Malignant neoplasm of overlapping sites of right bronchus and lung; Z51.12 Encounter for antineoplastic immunotherapy; Z72.0 Tobacco use; M48.02 Spinal stenosis, cervical region; Z79.891 Long term (current) use of opiate analgesic; Z79.01 Long term (current) use of anticoagulants; F41.9 Anxiety disorder, unspecified; F32.A Depression, unspecified; M48.54XA Collapsed vertebra, not elsewhere classified, thoracic region, initial encounter for fracture; Z92.21 Personal history of antineoplastic chemotherapy; Z92.3 Personal history of irradiation; C79.51 Secondary malignant neoplasm of bone
CPT/HCPCS: 80053; 84443; 85025; 96413; 99214; J7050; J9173

== ENCOUNTER → 2023-10-30 08:38 | Outpatient (BNVA) | payer MEDICARE, SELFPAY | PROVIDERS: PCP Family Medicine; Referring Provider Family Medicine; Visit Provider Orthopaedic Surgery | DX: S22.060A Wedge compression fracture of T7-T8 vertebra, initial encounter for closed fracture (principal); T14.8XXA Other injury of unspecified body region, initial encounter; X58.XXXA Exposure to other specified factors, initial encounter | CPT/HCPCS: 36415; 72072; 80053; 85025; 99204 ==

== ENCOUNTER 2023-11-13 08:38 | Outpatient (CLI) | payer MEDICARE, SELFPAY ==
--- NOTE | 2023-11-13 08:45 | MR_ITS ---
WS: [email or web address] MRI CERVICAL SPINE NONCONTRAST TECHNIQUE: Sagittal T1, T2 and STIR imaging. Axial T2, gradient, and fiesta imaging. CLINICAL INFORMATION: abnormal imaging COMPARISON: MRI thoracic 10/13/2023 FINDINGS: Straightening of the normal cervical lordosis. Mild disc bulging worse at C3-C4 C4-C5 and C5-C6. Cord signal appears normal. C2-C3: Mild disc bulging with osteophytic ridging. Advanced RIGHT facet arthropathy with periarticula r edema. Mild central canal stenosis. Moderate RIGHT and mild LEFT bony foraminal narrowing. C3-C4: Disc osteophyte complex with central protrusion. Indentation on the cervical cord with moderat e central canal stenosis. Advanced facet arthropathy. Moderate bilateral bony foraminal narrowing. C4-C5: Mild disc bulging with osteophytic ridging. Mild central canal stenosis with slight contact of the cervical cord. Uncovertebral joint hypertrophy. Severe bilateral bony foraminal narrowing RIGHT greater than LEFT. C5-C6: Slight retrolisthesis. Disc osteophyte complex with moderate central canal stenosis and slight indentation cervical cord. Advanced facet arthropathy. Severe bilateral bony foraminal narrowing. C6-C7: Slight retrolisthesis. Disc osteophyte complex with mild central canal stenosis. Uncovertebral joint hypertrophy. Moderate facet arthropathy. Severe RIGHT and moderate LEFT bony foraminal narrowi ng. C7-T1: Mild bilateral bony foraminal narrowing. Spinal canal is patent. Small vessel changes in the riya. Shallow central protrusions in the upper thoracic spine at T1-T3.. IMPRESSION: 1. Straightening of the normal cervical lordosis with moderate spondylitic changes. 2. Moderate central canal stenosis C3-C4 and C5-C6 with slight indentation on the cervical cord. Cor d signal remains normal. 3. Mild central canal stenosis C2-3 C4-C5 and C6-C7. 4. Multilevel moderate to severe bony foraminal narrowing worse at RIGHT C2-3, bilateral C3-4, bilat eral C4-5, bilateral C5-6 and RIGHT C6-7 5. Small amount of RIGHT facet synovitis at C2-3 with periarticular edema. 6. Moderate to advanced facet arthropathy C2-3, C3-4, C4-5, and C5-6.
== END 2023-11-13 08:39 | disposition home or self-care (01) ==
LOC: RAD 08:38
PROVIDERS: PCP Family Medicine; Visit Provider Nurse Practitioner Family
DX: M48.02 Spinal stenosis, cervical region (principal); M47.812 Spondylosis without myelopathy or radiculopathy, cervical region; M65.88 Other synovitis and tenosynovitis, other site
CPT/HCPCS: 72141

== ENCOUNTER 2023-11-18 09:30 | Oncology outpatient (recurring) (ONCR) | payer MEDICARE, SELFPAY ==
[2023-11-18 10:12] LABS: Basophils # 0.1 10^3/uL (0.0-0.1); Basophils % 1.2 %; Eosinophils # 0.1 10^3/uL (0.0-0.8); Eosinophils % 2.8 %; Hematocrit 39.2 % (37-53); Lymphocytes # 0.6 10^3/uL (0.8-4.8); Lymphocytes % 14.7 %; Mean Corpuscular HGB Conc 31.9 g/dL (30-55); Mean Corpuscular Hemoglobin 28.9 pg (27-33); Mean Corpuscular Volume 90.5 fl (82-101); Mean Platelet Volume 8.8 fL (7.4-10.4); Monocytes # 0.4 10^3/uL (0.2-0.9); Monocytes % 10.4 %; Neutrophils # 2.99 10^3/uL (1.8-7.7); Neutrophils % 70.7 %; Nucleated Red Blood Cells % 0 %; Platelet Count 327 10^3/cmm (157-399); Red Blood Count 4.33 10^6/uL (3.85-5.65); Red Cell Distribution Width 14.3 % (12.1-15.1); White Blood Count 4.23 10^3/uL (3.29-11.43)
[2023-11-18 11:32] LABS: Aspartate Amino Transferase 18 U/L (0-40); Chloride 105 mmol/L (98-107); Sodium 141 mmol/L (136-145)
[2023-11-18 12:03] LABS: Alanine Aminotransferase 13 U/L (0-41); Albumin Level 3.8 g/dL (3.5-5.2); Alkaline Phosphatase 150 U/L (40-130); Blood Urea Nitrogen 21 mg/dL (8-23); Calcium 9.2 mg/dL (8.5-10.5); Carbon Dioxide 26 mmol/L (22-29); Globulin 2.6 g/dL (1.3-4.6); Glomerular Filtration Rate 95.8 mL/min (90-130); Glucose 87 mg/dL (65-115); Osmolality Calculated 292 mOsm/kg (285-295); Thyroid Stimulating Hormone 1.22 uIU/mL (0.27-4.20); Total Bilirubin 0.4 mg/dL (0.15-1.2); Total Protein 6.4 g/dL (6.6-8.7)
== END 2023-11-29 23:59 | disposition home or self-care (01) ==
LOC: ONCMED 09:30
PROVIDERS: Nurse Practitioner Family; PCP Family Medicine; Visit Provider Radiology Radiation Oncology
DX: Z51.0 Encounter for antineoplastic radiation therapy (principal); C34.81 Malignant neoplasm of overlapping sites of right bronchus and lung; Z79.899 Other long term (current) drug therapy; Z87.891 Personal history of nicotine dependence; T45.1X5A Adverse effect of antineoplastic and immunosuppressive drugs, initial encounter; D64.81 Anemia due to antineoplastic chemotherapy; Z53.9 Procedure and treatment not carried out, unspecified reason; R53.83 Other fatigue
CPT/HCPCS: 36415; 80053; 84443; 85025; 99214

== ENCOUNTER 2023-11-24 15:40 | Outpatient (CLI) | payer MEDICARE, SELFPAY ==
--- NOTE | 2023-11-24 15:30 | XR_ITS ---
WS: [email or web address] DEXA (DUAL ENERGY X-RAY ABSORPTIOMETRY) Bone mineral density was performed using a [employer] machine. HISTORY: vertebral compression fracture COMPARISON: None available. Lumbar spine BMD (L1-L4): 1.178 g/cm2 T score: -0.4 Z score: 0.4 Total hip BMD: Left: 0.843 g/cm2. T score: -1.8 Z score: -0.9 Right: 0.797 g/cm2. T score: -2.1 Z score: -1.3 10 year probability of a major osteoporotic fracture is 14.6%. IMPRESSION: OSTEOPENIA.
== END 2023-11-24 15:41 | disposition home or self-care (01) ==
LOC: RAD 15:41
PROVIDERS: PCP Family Medicine; Visit Provider Internal Medicine Medical Oncology
DX: S22.060A Wedge compression fracture of T7-T8 vertebra, initial encounter for closed fracture (principal); X58.XXXA Exposure to other specified factors, initial encounter; M85.80 Other specified disorders of bone density and structure, unspecified site
CPT/HCPCS: 77080

== ENCOUNTER 2023-11-25 05:52 | Day surgery (SDC) | payer MEDICARE, SELFPAY ==
[2023-11-25] VITALS (10 sets, daily range): BP systolic 123–152; BP diastolic 80–92; PULSE 73–87; RESP 16–20; TEMP 36.6–37.1; O2SAT 95–100; BMI 23.0
--- NOTE | 2023-11-25 05:57 | SC_ITS ---
WS: [email or web address] INTRAOPERATIVE TECHNIQUE: 6 Spot fluoroscopic images for intraoperative purposes. FLUOROSCOPY TIME: 118.6 seconds CLINICAL INFORMATION: Surgery COMPARISON: None. FINDINGS: Intraoperative fluoroscopy used for kyphoplasty thoracic spine. Functioning cells IMPRESSION: Images obtained for intraoperative purposes.
[2023-11-25] MEDS: sodium chloride 0.9% 1,000 ML 30 ML IV (06:23)
[2023-11-25] MEDS: clindamycin 600 MG/50 ML PREMIX 100 MG IV (07:04)
--- NOTE | 2023-11-25 07:04 | ANES.PREANE2 ---
Pre-Anesthetic Assessment Height/Weight: Height 1.8 m Weight 74.843 kg Temp Pulse Resp BP Pulse Ox O2 Del Method 98.8 F 80 20 H 123/83 97 Room Air 11/25/23 06:13 11/25/23 06:13 11/25/23 06:13 11/25/23 06:13 11/25/23 06:13 11/25/23 06:17 Preop Diagnosis: Pathologic T7 compression fracture Operation Date: 11/25/23 07:00 Proposed Procedures p Kyphoplasty(Not Applicable) - Raul Herrera DO Familial anesthetic complications: None Was Beta Nichelle taken within 24 hours: N/A Was Clonidine taken within 24 hours: N/A Last intake: Intake Last Liquid Date 11/24/23 Last Liquid Time 23:59 Last Solid Date 11/24/23 Last Solid Time 23:59 Social Tobacco and No alcohol Airway Mallampati: Class I Dentition: false Pulmonary lung cancer CV/HEM hx PE Anesthetic Plan ASA status: 4 Anesthesia: General Risk of > 500 ml blood loss (7ml/kg in children): No Medications/Allergies Home Medications Medication Instructions Recorded Confirmed Last Taken Type albuterol sulfate 90 mcg/actuation 2 puff inhalation Q6H PRN 05/26/22 11/24/23 03/12/23 Rx aerosol inhaler shortness of breath or wheezing #6.7 grams lorazepam 1 mg tablet 0.5 - 1 mg (0.5 - 1 x 1 mg) PO Q6H 03/24/23 11/24/23 04/04/23 08:00 Rx PRN Severe Nausea #30 tabs aspirin 81 mg tablet,delayed 81 mg PO DAILY 04/29/23 11/24/23 11/19/23 History release (Adult Low Dose Aspirin) budesonide-formoterol HFA 160 2 puff inhalation BID #18 grams 06/26/23 11/24/23 Unknown Rx mcg-4.5 mcg/actuation aerosol inhaler (Symbicort) clopidogrel 75 mg tablet 75 mg PO DAILY #90 tabs 08/13/23 11/24/23 11/22/23 Rx ondansetron HCl 4 mg tablet 4 mg PO Q8H #30 tabs 08/26/23 11/24/23 Unknown Rx escitalopram oxalate 10 mg tablet 10 mg PO DAILY #30 tabs 10/21/23 11/24/23 Unknown Rx apixaban 5 mg tablet (Eliquis) 5 mg PO BID 11/24/23 11/24/23 11/22/23 History morphine 30 mg tablet,extended 30 mg PO Q12H PRN Pain, Moderate 11/25/23 11/24/23 History release Allergies Allergy/AdvReac Type Severity Reaction Status Date / Time Penicillins Allergy Unknown ALGY-Swell Verified 11/24/23 15:14 Lip/Tongue/Throat Current Medications Generic Name Dose Route Start Last Admin Trade Name Freq PRN Reason Stop Dose Admin Sodium Chloride 1,000 mls @ 30 mls/hr 11/25/23 06:00 11/25/23 06:23 Sodium Chloride 0.9% IV 11/26/23 05:59 30 mls/hr .Q24H HOLLIE Administration PFSH Anesthesia Medical History (Updated 11/18/23 @ 11:28 by Maynor Kirkpatrick MD) Compression fracture of T7 vertebra Cavitary lesion of lung Constipation Cancer related pain Non-small cell lung cancer Immunosuppressed due to chemotherapy Drug or medicinal substance causing adverse effect in therapeutic use Antineoplastic chemotherapy induced anemia Chemotherapy-induced vomiting Secondary malignant neoplasm of mediastinum Chemotherapy management, encounter for Malignant neoplasm of overlapping sites of right lung Lung cancer metastatic to bone GI (gastrointestinal bleed) Mass of right lung Bilateral direct inguinal hernia CAD (coronary artery disease) Tobacco abuse PAD (peripheral artery disease) Erectile 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 COPD (chronic obstructive pulmonary disease) Hyperlipidemia Surgical History Status post peripheral artery angioplasty with insertion of stent History of angioplasty of peripheral vessel History of right shoulder replacement History of chest tube placement History of laparoscopic cholecystectomy Family History Father Diabetes Brother , AGE 60 CAD (coronary artery disease) Myocardial infarction Mother Diabetes Grandfather Diabetes MATERNAL Grandmother Diabetes MATERNAL Social History Smoking and tobacco/nicotine status: tobacco/nicotine user, details unknown e-cigarettes E-Cigarette Details: vaporizer device E-cig/vape details: does not use regularly Quit status (tobacco/nicotine): has quit using Year quit tobacco: 2022 Former quit date comment: has had no cigarette tobacco for 10 days/smoked for 50 years Alcohol intake: former Substance/Drug Use: current Substance/Drug use frequency: few times a week Household members: none Marital status: Number of children: 1 service: No 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
[2023-11-25] MEDS: lidocaine-epi 2% PF 1:200,000 20 mL SDV XX (07:43)
[2023-11-25] MEDS: iohexol 300 mg/mL 50 mL Btl IV (07:45)
--- NOTE | 2023-11-25 08:25 | PM.OP ---
Operative Report Date of procedure: November 25, 2023 Pre-op diagnosis: T7 pathologic osteoporotic traumatic compression fracture Post-op diagnosis: same Procedure done: 1. T7 kyphoplasty 2. T7 radiofrequency ablation of the tumor. 3. T7 biopsy Surgeon: Raul Herrera DO Estimated blood loss (mL): 5 Procedure: 1. T7 kyphoplasty 2. T7 radiofrequency ablation of the tumor. 3. T7 biopsy Patient is brought to the procedure after undergoing anesthesia was placed in the prone position. All his impingement well-padded patient's prepped draped normal sterile fashion. C-arm biplanar was brought in to confirm level. The most levels identified. The patient's prepped draped normal sterile fashion. Skin was made over the T7 pedicles bilaterally. Awl was inserted. Followed by the biopsy probe. A cone bone was taken for biopsy from T7 and sent for to pathology. Extension was brought to placing the probes for the radiofrequency ablation. This was done by using the drill in both the right and left pedicles. The radiofrequency ablation probes were then inserted. The radiofrequency ablation was set for 8 minutes these probes were confirmed to be in the correct position under C-arm.. Next attention was brought to performing the kyphoplasty. This was done by placing the balloons in and then inflating the balloons inflated balloons then cement was in injected. AP lateral fluoroscopy images showed that the cement was in good position. Pins removed wounds irrigated closed with nylon suture sterile dressings applied patient transferred to PACU in stable addition.
--- NOTE | 2023-11-25 09:20 | ANE.PACU2 ---
Inpatient post-anesthesia follow up: Airway intact: Yes Vital signs: Temperature 97.8 F Pulse Rate 77 Respiratory Rate 18 Blood Pressure 137/84 Pulse Oximetry 99 Oxygen Delivery Me thod Room Air Oxygen Flow Rate 6 Fraction of Inspir ed Oxygen Hydration adequate: Yes Nausea and vomiting: No Pain level: 1 Mental status: Baseline
== END 2023-11-25 09:20 | disposition home or self-care (01) ==
PROVIDERS: PCP Family Medicine; Visit Provider Orthopaedic Surgery
PROC: (CPT 20982; principal; 2023-11-25 07:00)
DX: M84.48XA Pathological fracture, other site, initial encounter for fracture (principal); Z85.118 Personal history of other malignant neoplasm of bronchus and lung; I25.10 Atherosclerotic heart disease of native coronary artery without angina pectoris; J44.9 Chronic obstructive pulmonary disease, unspecified; E78.5 Hyperlipidemia, unspecified; F17.200 Nicotine dependence, unspecified, uncomplicated
CPT/HCPCS: 20982; 22513; 76000; 88307; 88311; 88342; J0330; J1100; J1885; J2405; J2704; J3010; J3490; J7030; Q9967

== ENCOUNTER 2023-12-07 08:30 | Oncology outpatient (recurring) (ONCR) | payer MEDICARE, SELFPAY ==
[2023-12-07] MEDS: cosyntropin 0.25 mg SDV IVP (09:46)
[2023-12-07 10:23] LABS: Cosyntropin Baseline 9.73 mcg/dL
[2023-12-07 11:01] LABS: Cosyntropin 30 Minute 22.09 mcg/dL
[2023-12-07 11:33] LABS: Cosyntropin 1 Hour 25.34 mcg/dL
== END 2023-12-29 23:59 | disposition home or self-care (01) ==
PROVIDERS: Internal Medicine Medical Oncology; PCP Family Medicine; Visit Provider Radiology Radiation Oncology
DX: I95.9 Hypotension, unspecified (principal)
CPT/HCPCS: 36415; 82533; J0834

== ENCOUNTER 2023-12-22 08:54 | Outpatient (CLI) | payer MEDICARE, SELFPAY ==
--- NOTE | 2023-12-22 09:30 | PETR_ITS ---
PROCEDURE INFORMATION: Exam: PET/CT Skull Base to Mid-thigh Exam date and time: 12/22/2023 9:29 AM Age: 68 years old Clinical indication: Condition or disease; Primary cancer: RT lung cancer; Prior surgery; Surgery date: 6+ months; Surgery type: Gb LABS AND CLINICAL REPORTS: Glucose: 106 mg/dl Treatment strategy for malignancy (PET staging): Restaging (PS) TECHNIQUE: Imaging protocol: Following at least four-hour fasting and following the injection of radiopharmaceutical, low dose CT images were obtained. Then, PET images were obtained. Attenuation corrected images were constructed using the CT scan. Fused images of PET and CT were reviewed. The standardized uptake values (SUV) reported below are maximum values within a region of interest, expressed in gm/ml. Exam includes orbital meatal line to mid-thigh. Radiopharmaceutical: 12.78 mCi F-18 FDG (Fluorodeoxyglucose), IV. Time of imaging post radiopharmaceutical administration: 1 hour Injection site: Left antecubital COMPARISON: [facility] [id number] 12/27/2022 8:39 AM FINDINGS: Brain: Visualized brain has normal physiologic uptake. Pharynx: No abnormal uptake. Larynx: No abnormal uptake. Lungs, pleura and trachea: Rounded consolidations noted in the right lower lung with scarring and interlobular septal thickening in this region. There is a small pocket of air within the pleural space in this region at the location of the previously described cavitary pleural mass without FDG uptake. The rounded areas of consolidation have a max SUV measuring 5.1 and 5.0 respectively. Heart: Normal physiologic uptake. Mediastinal space: No abnormal uptake. Liver: No abnormal uptake. Gallbladder and bile ducts: No abnormal uptake. Pancreas: No abnormal uptake. Spleen: No abnormal uptake. Adrenal glands: No abnormal uptake. Kidneys and ureters: Normal physiologic uptake. Stomach and bowel: No abnormal uptake. Vasculature: No abnormal uptake. Lymph nodes: There is a mildly enlarged paratracheal lymph node measuring 0.8 cm in short axis. Lymph node demonstrates moderate FDG uptake with a max SUV of 3.4. Bones/joints: No abnormal uptake in the visualized axial and appendicular skeleton. Redemonstrated right posterolateral 7th and 8th rib fractures. Soft tissues: No abnormal uptake in the visualized head, neck, chest, abdomen, pelvis, and extremities. [facility] [id number] IMPRESSION: 1. FDG avid rounded consolidations in the right lower lung with surrounding scarring and inflammatory changes, as well as a small pocket of air in the pleural space corresponding to the cavitary pleural lesion seen on prior studies. The majority of these findings likely reflect post treatment change, it is unclear if the rounded areas of consolidation simply reflect additional areas of inflammation or possible viable tumor. Attention on any follow-up examinations. 2. Indeterminate mildly enlarged paratracheal lymph node with moderate FDG uptake reactive vs metastatic adenopathy.
== END 2023-12-22 08:55 | disposition home or self-care (01) ==
LOC: RAD 08:54
PROVIDERS: PCP Family Medicine; Visit Provider Internal Medicine Medical Oncology
DX: C34.81 Malignant neoplasm of overlapping sites of right bronchus and lung (principal)
CPT/HCPCS: 78815; A9552

== ENCOUNTER 2023-12-31 13:30 | Oncology outpatient (recurring) (ONCR) | payer MEDICARE, SELFPAY ==
[2023-12-30 14:40] LABS: Basophils % 0.7 %; Eosinophils # 0.1 10^3/uL (0.0-0.8); Eosinophils % 2.5 %; Hematocrit 38.8 % (37-53); Lymphocytes # 0.5 10^3/uL (0.8-4.8); Lymphocytes % 12.2 %; Mean Corpuscular Hemoglobin 29.8 pg (27-33); Mean Corpuscular Volume 90.2 fl (82-101); Mean Platelet Volume 8.6 fL (7.4-10.4); Monocytes # 0.5 10^3/uL (0.2-0.9); Monocytes % 10.7 %; Neutrophils # 3.25 10^3/uL (1.8-7.7); Neutrophils % 73.7 %; Nucleated Red Blood Cells % 0 %; Platelet Count 236 10^3/cmm (157-399); Red Cell Distribution Width 14.9 % (12.1-15.1); White Blood Count 4.41 10^3/uL (3.29-11.43)
[2023-12-30 15:08] LABS: Alanine Aminotransferase 13 U/L (0-41); Albumin Level 4.1 g/dL (3.5-5.2); Alkaline Phosphatase 135 U/L (40-130); Anion Gap 12.8 (5-19); Aspartate Amino Transferase 16 U/L (0-40); Blood Urea Nitrogen 14 mg/dL (8-23); Calcium 8.7 mg/dL (8.5-10.5); Carbon Dioxide 28 mmol/L (22-29); Chloride 101 mmol/L (98-107); Globulin 2.7 g/dL (1.3-4.6); Glomerular Filtration Rate 95.8 mL/min (90-130); Glucose 105 mg/dL (65-115); Osmolality Calculated 287 mOsm/kg (285-295); Potassium 3.8 mmol/L (3.5-5.1); Sodium 138 mmol/L (136-145); Thyroid Stimulating Hormone 0.96 uIU/mL (0.27-4.20); Total Bilirubin 0.6 mg/dL (0.15-1.2); Total Protein 6.8 g/dL (6.6-8.7)
--- NOTE | 2023-12-30 16:26 | ECG_ITS ---
[facility] Test Date: 2023-12-30 Pat Name: Karthik Gordon Department: Room: Gender: Male Vp Outcomes: : 1955 Requested By: Sharath Stout Order Number: [id number] Patti MD: Jd Justice M.D. Measurements Intervals [place] Rate: 103 P: 74 IN: 148 QRS: 74 QRSD: 94 T: 71 QT: 334 QTc: 438 Interpretive Statements SINUS TACHYCARDIA Compared to ECG 04/25/2023 12:40:26 Sinus rhythm no longer present Electronically Signed On 12-30-2023 16:52:53 CDT by Jd Justice M.D. [id number]
[2023-12-31] MEDS: durvalumab 1,500 MG in sodium chloride 0.9% 250 ML 280 MG IV (14:25)
[2023-12-31 15:30] VITALS: BP 115/70; PULSE 81; TEMP 36.2; O2SAT 90
== END 2023-12-31 23:59 | disposition home or self-care (01) ==
PROVIDERS: Internal Medicine Hematology & Oncology; PCP Family Medicine; Visit Provider Radiology Radiation Oncology
DX: C34.81 Malignant neoplasm of overlapping sites of right bronchus and lung; Z51.12 Encounter for antineoplastic immunotherapy; R53.83 Other fatigue; Z53.9 Procedure and treatment not carried out, unspecified reason
CPT/HCPCS: 36415; 80053; 84443; 85025; 93005; 96413; 99214; A4222; J7050; J9173

== ENCOUNTER 2024-01-28 09:32 | Oncology outpatient (recurring) (ONCR) | payer MEDICARE, SELFPAY ==
[2024-01-28 10:45] LABS: Basophils # 0.1 10^3/uL (0.0-0.1); Basophils % 1.3 %; Eosinophils # 0.2 10^3/uL (0.0-0.8); Eosinophils % 4.8 %; Hematocrit 42.4 % (37-53); Lymphocytes # 0.6 10^3/uL (0.8-4.8); Lymphocytes % 14.5 %; Mean Corpuscular HGB Conc 31.8 g/dL (30-55); Mean Corpuscular Volume 91.2 fl (82-101); Mean Platelet Volume 8.9 fL (7.4-10.4); Monocytes # 0.4 10^3/uL (0.2-0.9); Monocytes % 9.9 %; Neutrophils # 2.71 10^3/uL (1.8-7.7); Neutrophils % 69.2 %; Nucleated Red Blood Cells % 0 %; Platelet Count 256 10^3/cmm (157-399); Red Blood Count 4.65 10^6/uL (3.85-5.65); Red Cell Distribution Width 13.9 % (12.1-15.1); White Blood Count 3.92 10^3/uL (3.29-11.43)
[2024-01-28 11:05] LABS: Alanine Aminotransferase 16 U/L (0-41); Albumin Level 4.1 g/dL (3.5-5.2); Alkaline Phosphatase 151 U/L (40-130); Anion Gap 15.2 (5-19); Aspartate Amino Transferase 17 U/L (0-40); Blood Urea Nitrogen 25 mg/dL (8-23); Carbon Dioxide 26 mmol/L (22-29); Chloride 105 mmol/L (98-107); Creatinine Clr Calc Pharmacy 79.0028; Globulin 3.1 g/dL (1.3-4.6); Glomerular Filtration Rate 83.7 mL/min (90-130); Glucose 116 mg/dL (65-115); Osmolality Calculated 297 mOsm/kg (285-295); Potassium 5.2 mmol/L (3.5-5.1); Sodium 141 mmol/L (136-145); Thyroid Stimulating Hormone 1.78 uIU/mL (0.27-4.20); Total Bilirubin 0.3 mg/dL (0.15-1.2); Total Protein 7.2 g/dL (6.6-8.7)
[2024-01-28] MEDS: durvalumab 1,500 MG in sodium chloride 0.9% 250 ML 280 MG IV (11:57)
[2024-01-28 12:57] VITALS: BP 124/78; PULSE 78; RESP 18; TEMP 36.6; O2SAT 98
== END 2024-01-28 23:59 | disposition home or self-care (01) ==
PROVIDERS: Internal Medicine Hematology & Oncology; PCP Family Medicine; Visit Provider Radiology Radiation Oncology
DX: C34.81 Malignant neoplasm of overlapping sites of right bronchus and lung; Z79.899 Other long term (current) drug therapy; Z87.891 Personal history of nicotine dependence; Z51.12 Encounter for antineoplastic immunotherapy; J44.9 Chronic obstructive pulmonary disease, unspecified; Z92.3 Personal history of irradiation; Z92.21 Personal history of antineoplastic chemotherapy
CPT/HCPCS: 80053; 84443; 85025; 96413; 99214; A4222; J7050; J9173

== ENCOUNTER 2024-02-25 08:50 | Oncology outpatient (recurring) (ONCR) | payer MEDICARE, SELFPAY ==
[2024-02-25 09:18] LABS: Basophils # 0.1 10^3/uL (0.0-0.1); Basophils % 1.5 %; Eosinophils # 0.2 10^3/uL (0.0-0.8); Eosinophils % 4.4 %; Hematocrit 33.8 % (37-53); Lymphocytes # 0.5 10^3/uL (0.8-4.8); Lymphocytes % 11.9 %; Mean Corpuscular HGB Conc 33.4 g/dL (30-55); Mean Corpuscular Hemoglobin 29.4 pg (27-33); Mean Platelet Volume 8.9 fL (7.4-10.4); Monocytes # 0.4 10^3/uL (0.2-0.9); Monocytes % 10.7 %; Neutrophils # 2.93 10^3/uL (1.8-7.7); Neutrophils % 71.3 %; Nucleated Red Blood Cells % 0 %; Platelet Count 252 10^3/cmm (157-399); Red Blood Count 3.84 10^6/uL (3.85-5.65); Red Cell Distribution Width 13.7 % (12.1-15.1); White Blood Count 4.11 10^3/uL (3.29-11.43)
[2024-02-25 09:45] LABS: Alanine Aminotransferase 14 U/L (0-41); Alkaline Phosphatase 116 U/L (40-130); Anion Gap 15.9 (5-19); Aspartate Amino Transferase 23 U/L (0-40); Blood Urea Nitrogen 38 mg/dL (8-23); Calcium 8.6 mg/dL (8.5-10.5); Carbon Dioxide 21 mmol/L (22-29); Chloride 102 mmol/L (98-107); Globulin 2.6 g/dL (1.3-4.6); Glomerular Filtration Rate 46.4 mL/min (90-130); Glucose 84 mg/dL (65-115); Osmolality Calculated 288 mOsm/kg (285-295); Potassium 3.9 mmol/L (3.5-5.1); Sodium 135 mmol/L (136-145); Thyroid Stimulating Hormone 1.84 uIU/mL (0.27-4.20); Total Bilirubin 0.6 mg/dL (0.15-1.2); Total Protein 6.6 g/dL (6.6-8.7)
[2024-02-25] MEDS: sodium chloride 0.9% 500 ML 999 ML IV (11:19)
[2024-02-25] MEDS: durvalumab 1,500 MG in sodium chloride 0.9% 250 ML 280 MG IV (11:22)
== END 2024-02-25 23:59 | disposition home or self-care (01) ==
PROVIDERS: Nurse Practitioner Family; PCP Family Medicine; Visit Provider Radiology Radiation Oncology
DX: C34.81 Malignant neoplasm of overlapping sites of right bronchus and lung; Z79.899 Other long term (current) drug therapy; Z87.891 Personal history of nicotine dependence; Z51.12 Encounter for antineoplastic immunotherapy; M54.9 Dorsalgia, unspecified
CPT/HCPCS: 80053; 84443; 85025; 96413; 99214; A4222; J7040; J7050; J9173

== ENCOUNTER 2024-03-08 13:40 | Outpatient (CLI) | payer MEDICARE, SELFPAY ==
--- NOTE | 2024-03-08 13:43 | XR_ITS ---
WS: [id number] Thoracic spine, 3 views, 03/08/2024 Clinical Data: acute back pain, hx t7 compression frx, lung cancer Comparison: Thoracic spine, 10/30/2023 Findings: There is vertebroplasty cement in the T7 vertebral body. The percentage of compression remains the sa me for T7. There is a right hilar opacity unchanged. There is mild osteoarthritic change of the thora cic vertebral bodies. The disc heights are normal. XR/XR thoracic spine 3V* [id number] Impression: T7 compression fracture treated with vertebroplasty.
== END 2024-03-08 13:41 | disposition home or self-care (01) ==
LOC: RAD 13:43
PROVIDERS: PCP Family Medicine; Visit Provider Family Medicine
DX: S22.060A Wedge compression fracture of T7-T8 vertebra, initial encounter for closed fracture (principal); M54.9 Dorsalgia, unspecified
CPT/HCPCS: 72072

== ENCOUNTER 2024-03-31 07:24 | Oncology outpatient (recurring) (ONCR) | payer MEDICARE, SELFPAY ==
[2024-03-31 08:08] LABS: Basophils # 0.1 10^3/uL (0.0-0.1); Basophils % 1.5 %; Eosinophils # 0.3 10^3/uL (0.0-0.8); Eosinophils % 7.8 %; Hematocrit 45.1 % (37-53); Lymphocytes # 0.5 10^3/uL (0.8-4.8); Lymphocytes % 16.2 %; Mean Corpuscular HGB Conc 32.8 g/dL (30-55); Mean Corpuscular Hemoglobin 30.5 pg (27-33); Mean Corpuscular Volume 92.8 fl (82-101); Mean Platelet Volume 9.2 fL (7.4-10.4); Monocytes # 0.3 10^3/uL (0.2-0.9); Neutrophils # 2.17 10^3/uL (1.8-7.7); Neutrophils % 65.2 %; Nucleated Red Blood Cells % 0 %; Platelet Count 298 10^3/cmm (157-399); Red Blood Count 4.86 10^6/uL (3.85-5.65); White Blood Count 3.33 10^3/uL (3.29-11.43)
[2024-03-31 08:24] LABS: Alanine Aminotransferase 15 U/L (0-41); Albumin Level 4.2 g/dL (3.5-5.2); Alkaline Phosphatase 144 U/L (40-130); Anion Gap 17.4 (5-19); Aspartate Amino Transferase 16 U/L (0-40); Blood Urea Nitrogen 18 mg/dL (8-23); Calcium 9.3 mg/dL (8.5-10.5); Carbon Dioxide 26 mmol/L (22-29); Chloride 99 mmol/L (98-107); Glomerular Filtration Rate 66.4 mL/min (90-130); Glucose 158 mg/dL (65-115); Osmolality Calculated 291 mOsm/kg (285-295); Potassium 4.4 mmol/L (3.5-5.1); Sodium 138 mmol/L (136-145); Thyroid Stimulating Hormone 2.48 uIU/mL (0.27-4.20); Total Bilirubin 0.7 mg/dL (0.15-1.2); Total Protein 7.2 g/dL (6.6-8.7)
[2024-03-31] MEDS: durvalumab 1,500 MG in sodium chloride 0.9% 250 ML 280 MG IV (09:12)
[2024-03-31 09:17] VITALS: BP 114/72; PULSE 90; RESP 16; TEMP 36.4; O2SAT 92
[2024-03-31 10:26] VITALS: BP 105/43; PULSE 87; RESP 16; O2SAT 90
== END 2024-03-31 23:59 | disposition home or self-care (01) ==
PROVIDERS: Nurse Practitioner Family; PCP Family Medicine; Visit Provider Radiology Radiation Oncology
DX: Z51.12 Encounter for antineoplastic immunotherapy (principal); C34.81 Malignant neoplasm of overlapping sites of right bronchus and lung; Z79.899 Other long term (current) drug therapy; Z79.891 Long term (current) use of opiate analgesic; Z92.3 Personal history of irradiation; Z87.891 Personal history of nicotine dependence
CPT/HCPCS: 80053; 84443; 85025; 96413; 99214; A4222; J7050; J9173

== ENCOUNTER → 2024-04-25 13:55 | Outpatient (BNVA) | payer MEDICARE, SELFPAY | PROVIDERS: PCP Family Medicine; Referring Provider Internal Medicine Medical Oncology; Visit Provider Internal Medicine | DX: R07.9 Chest pain, unspecified (principal); R06.02 Shortness of breath; I26.99 Other pulmonary embolism without acute cor pulmonale; R00.0 Tachycardia, unspecified; I95.9 Hypotension, unspecified | CPT/HCPCS: 93005; 99204 ==

== ENCOUNTER 2024-04-28 09:15 | Oncology outpatient (recurring) (ONCR) | payer MEDICARE, SELFPAY ==
[2024-04-28 09:42] LABS: Basophils # 0.1 10^3/uL (0.0-0.1); Basophils % 1.7 %; Eosinophils # 0.2 10^3/uL (0.0-0.8); Eosinophils % 4.6 %; Hematocrit 39.5 % (37-53); Lymphocytes # 0.6 10^3/uL (0.8-4.8); Lymphocytes % 15.9 %; Mean Corpuscular HGB Conc 32.7 g/dL (30-55); Mean Corpuscular Hemoglobin 29.8 pg (27-33); Mean Corpuscular Volume 91.2 fl (82-101); Mean Platelet Volume 9.1 fL (7.4-10.4); Monocytes # 0.4 10^3/uL (0.2-0.9); Monocytes % 11.9 %; Neutrophils # 2.26 10^3/uL (1.8-7.7); Neutrophils % 65.6 %; Nucleated Red Blood Cells % 0 %; Platelet Count 271 10^3/cmm (157-399); Red Blood Count 4.33 10^6/uL (3.85-5.65); Red Cell Distribution Width 13.7 % (12.1-15.1); White Blood Count 3.45 10^3/uL (3.29-11.43)
[2024-04-28 10:03] LABS: Alanine Aminotransferase 11 U/L (0-41); Albumin Level 4.1 g/dL (3.5-5.2); Alkaline Phosphatase 131 U/L (40-130); Anion Gap 17.9 (5-19); Aspartate Amino Transferase 15 U/L (0-40); Blood Urea Nitrogen 19 mg/dL (8-23); Calcium 9.2 mg/dL (8.5-10.5); Carbon Dioxide 24 mmol/L (22-29); Chloride 101 mmol/L (98-107); Globulin 2.7 g/dL (1.3-4.6); Glomerular Filtration Rate 95.8 mL/min (90-130); Glucose 133 mg/dL (65-115); Osmolality Calculated 292 mOsm/kg (285-295); Potassium 3.9 mmol/L (3.5-5.1); Sodium 139 mmol/L (136-145); Thyroid Stimulating Hormone 1.32 uIU/mL (0.27-4.20); Total Bilirubin 0.9 mg/dL (0.15-1.2); Total Protein 6.8 g/dL (6.6-8.7)
[2024-04-28] MEDS: durvalumab 1,500 MG in sodium chloride 0.9% 250 ML 280 MG IV (11:44)
[2024-04-28 12:52] VITALS: BP 107/68; PULSE 80; RESP 16; TEMP 36.4; O2SAT 93
== END 2024-04-28 23:59 | disposition home or self-care (01) ==
PROVIDERS: Nurse Practitioner Family; PCP Family Medicine; Visit Provider Radiology Radiation Oncology
DX: C34.81 Malignant neoplasm of overlapping sites of right bronchus and lung; Z79.899 Other long term (current) drug therapy; Z87.891 Personal history of nicotine dependence; D64.81 Anemia due to antineoplastic chemotherapy; R53.83 Other fatigue; Z51.12 Encounter for antineoplastic immunotherapy
CPT/HCPCS: 80053; 84443; 85025; 96413; 99214; A4222; J7050; J9173

== ENCOUNTER 2024-05-26 09:07 | Oncology outpatient (recurring) (ONCR) | payer MEDICARE, SELFPAY ==
[2024-05-26 09:23] LABS: Basophils # 0.1 10^3/uL (0.0-0.1); Basophils % 1.7 %; Eosinophils # 0.2 10^3/uL (0.0-0.8); Eosinophils % 4.9 %; Hematocrit 40.9 % (37-53); Lymphocytes # 0.7 10^3/uL (0.8-4.8); Lymphocytes % 19.8 %; Mean Corpuscular Hemoglobin 30.3 pg (27-33); Mean Corpuscular Volume 94.5 fl (82-101); Mean Platelet Volume 8.6 fL (7.4-10.4); Monocytes # 0.4 10^3/uL (0.2-0.9); Monocytes % 12.3 %; Neutrophils # 2.13 10^3/uL (1.8-7.7); Nucleated Red Blood Cells % 0 %; Platelet Count 269 10^3/cmm (157-399); Red Blood Count 4.33 10^6/uL (3.85-5.65); Red Cell Distribution Width 13.8 % (12.1-15.1); White Blood Count 3.49 10^3/uL (3.29-11.43)
[2024-05-26 09:49] LABS: Alanine Aminotransferase 20 U/L (0-41); Albumin Level 4.1 g/dL (3.5-5.2); Alkaline Phosphatase 130 U/L (40-130); Anion Gap 16.1 (5-19); Aspartate Amino Transferase 18 U/L (0-40); Blood Urea Nitrogen 20 mg/dL (8-23); Calcium 9.2 mg/dL (8.5-10.5); Carbon Dioxide 28 mmol/L (22-29); Chloride 100 mmol/L (98-107); Globulin 2.9 g/dL (1.3-4.6); Glomerular Filtration Rate 95.8 mL/min (90-130); Glucose 97 mg/dL (65-115); Osmolality Calculated 291 mOsm/kg (285-295); Potassium 5.1 mmol/L (3.5-5.1); Sodium 139 mmol/L (136-145); Thyroid Stimulating Hormone 2.14 uIU/mL (0.27-4.20); Total Bilirubin 0.7 mg/dL (0.15-1.2)
[2024-05-26] MEDS: durvalumab 1,500 MG in sodium chloride 0.9% 250 ML 280 MG IV (11:14)
[2024-05-26 12:25] VITALS: BP 121/69; PULSE 88; RESP 17; TEMP 36.2; O2SAT 98
== END 2024-05-26 23:59 | disposition home or self-care (01) ==
PROVIDERS: Nurse Practitioner Family; PCP Family Medicine; Visit Provider Radiology Radiation Oncology
DX: C34.81 Malignant neoplasm of overlapping sites of right bronchus and lung; Z79.899 Other long term (current) drug therapy; Z87.891 Personal history of nicotine dependence; T45.1X5A Adverse effect of antineoplastic and immunosuppressive drugs, initial encounter; D64.81 Anemia due to antineoplastic chemotherapy; X58.XXXA Exposure to other specified factors, initial encounter; R53.83 Other fatigue; Z51.12 Encounter for antineoplastic immunotherapy
CPT/HCPCS: 80053; 84443; 85025; 96413; 99214; A4222; J7050; J9173

== ENCOUNTER 2024-06-23 09:48 | Oncology outpatient (recurring) (ONCR) | payer MEDICARE, SELFPAY ==
--- NOTE | 2024-06-14 11:00 | CTR_ITS ---
PROCEDURE INFORMATION: Exam: CT Chest With Contrast; Diagnostic Exam date and time: 06/14/2024 11:22 AM Age: 68 years old Clinical indication: Other: RT lower rib pain; Chest wall pain; Patient HX: HX of lung cancer; Additional info: C/O right lower rib area pain; TECHNIQUE: Imaging protocol: Diagnostic computed tomography of the chest with contrast. Radiation optimization: All CT scans at this facility use at least one of these dose optimization techniques: automated exposure control; mA and/or kV adjustment per patient size (includes targeted exams where dose is matched to clinical indication); or iterative reconstruction. Contrast material: OMNI 350; Contrast volume: 100 ml; Contrast route: INTRAVENOUS (IV); COMPARISON: PT PET skull to thigh SUBS [id number] 12/22/2023 9:29 AM RADIATION DOSE METRICS: Total DLP (mGy-cm): 612.93 FINDINGS: Lungs: Left lung calcified granuloma is benign. Increasing size of right lower lobe pleuroparenchymal consolidation (currently 4.9 x 2.5 cm, previously 3.1 x 2.2 cm). Stable parenchymal interstitial scarring and pleural-parenchymal cavitation in the posterior right lower lobe. Bilateral bronchial wall thickening. Cylindrical bronchiectasis. No other concerning lung nodules or consolidations. Pleural spaces: No pleural effusion or pneumothorax. Heart: Calcifications of the aortic valve annulus. Subtle 8 mm filling defect in the left atrial appendage. There is calcification of the mitral valve annulus. Coronary arteries: There is moderate atherosclerotic calcification of the coronary arteries. Lymph nodes: Stable 1.1 cm pretracheal lymph node. No other concerning adenopathy. Vasculature: Mild diffuse calcific atherosclerosis of the aorta. Bones/joints: Partially seen right shoulder arthroplasty. Bone demineralization. Focal areas of sclerosis and irregularity with healed nonunited fractures in the posterior segments of the right 7th, 8th, 9th, and 10th ribs. There are healed left rib fractures. Stable kyphoplasty changes at T7. No acutely displaced fractures. No new aggressive osseous lesions. Soft tissues: No acute body wall soft tissue findings. COMMENTS: Please review abdomen and pelvic CT performed on the same date for other findings. PROCEDURE INFORMATION: Exam: CT Abdomen And Pelvis With Contrast Exam date and time: 06/14/2024 11:22 AM Age: 68 years old Clinical indication: Other: RT lower rib pain; Chest wall pain; Patient HX: HX of lung cancer; Additional info: C/O right lower rib area pain; TECHNIQUE: Imaging protocol: Computed tomography of the abdomen and pelvis with contrast. Radiation optimization: All CT scans at this facility use at least one of these dose optimization techniques: automated exposure control; mA and/or kV adjustment per patient size (includes targeted exams where dose is matched to clinical indication); or iterative reconstruction. Contrast material: OMNI 350; Contrast volume: 100 ml; Contrast route: INTRAVENOUS (IV); COMPARISON: PT PET skull to thigh SUBS [id number] 12/22/2023 9:29 AM RADIATION DOSE METRICS: Total DLP (mGy-cm): 612.93 FINDINGS: Liver: Liver is enlarged measuring 17 cm. Gallbladder and biliary ducts: Cholecystectomy. Mild intra-and extrahepatic biliary ductal dilation is most likely the sequela of prior cholecystectomy in the absence of clinical symptomatology. If warranted, consider correlation with biliary levels. Pancreas: Normal. No ductal dilation. Spleen: The spleen demonstrates punctate calcifications, consistent with remote granulomatous organism exposure. Adrenal glands: Normal. No mass. Kidneys and ureters: Stable bilateral renal cysts. There is no evidence of hydronephrosis. There is no perinephric stranding or fluid. Stable 7 mm nonobstructive left renal stone. No hydroureter. Stomach and bowel: Severe constipation. No bowel obstruction or significant bowel wall thickening. Appendix: A normal appendix is identified. Intraperitoneal space: There is no evidence of free intraperitoneal or pelvic fluid. No intraperitoneal fluid collections. There is no free intraperitoneal air. Vasculature: Left common femoral artery stent is patent. Stable noncalcified plaque in the proximal left external iliac artery, causing up to 70% luminal stenosis. Severe atherosclerotic calcification of the arterial vasculature. Presumably there is a stable collapsed stent within the right common femoral artery. No aortic aneurysms. Portal venous system is patent. Lymph nodes: There is no evidence of lymphadenopathy. Urinary bladder: Bladder is decompressed and difficult to evaluate. Reproductive: Unremarkable as visualized. Bones/joints: Bone demineralization. Moderate multilevel degenerative changes of the spine. No acutely displaced fractures. No aggressive osseous lesions. Possible left pars interarticularis defect at L5-S1. Soft tissues: No acute soft tissue findings. CT/CT chest abdpel w/*[id number] IMPRESSION: 1. Stable 1.1 cm pretracheal lymph node. 2. Subtle 8 mm filling defect in the left atrial appendage. Questionable for a small thrombus. Follow-up echocardiography recommended. 3. Focal areas of sclerosis and irregularity with healed nonunited fractures in the posterior segments of the right 7th, 8th, 9th, and 10th ribs. Stable compared with prior. 4. Increasing size of right lower lobe pleuroparenchymal consolidation (currently 4.9 x 2.5 cm, previously 3.1 x 2.2 cm). Differential diagnosis would include progressive scarring/atelectasis/post treatment changes versus disease recurrence. Follow-up PET-CT is recommended. 5. Acute bronchitis/reactive airways disease. IMPRESSION: 1. No evidence for abdominopelvic neoplasia or metastasis. 2. Incidental findings as above.
[2024-06-14] MEDS: iohexol 350 mg/mL 500 mL Btl (per mL) IV (11:30)
[2024-06-14] MEDS: iohexol 350 mg/mL 500 mL Btl (per mL) PO (11:45)
[2024-06-23 10:06] LABS: Basophils # 0.1 10^3/uL (0.0-0.1); Basophils % 1.3 %; Eosinophils # 0.2 10^3/uL (0.0-0.8); Eosinophils % 4.1 %; Lymphocytes # 0.5 10^3/uL (0.8-4.8); Mean Corpuscular Volume 93.9 fl (82-101); Mean Platelet Volume 8.6 fL (7.4-10.4); Monocytes # 0.4 10^3/uL (0.2-0.9); Monocytes % 10.1 %; Neutrophils # 2.75 10^3/uL (1.8-7.7); Neutrophils % 71.2 %; Nucleated Red Blood Cells % 0 %; Platelet Count 232 10^3/cmm (157-399); Red Blood Count 4.26 10^6/uL (3.85-5.65); White Blood Count 3.86 10^3/uL (3.29-11.43)
[2024-06-23 10:33] LABS: Alanine Aminotransferase 8 U/L (0-41); Albumin Level 4.2 g/dL (3.5-5.2); Alkaline Phosphatase 141 U/L (40-130); Anion Gap 14.6 (5-19); Aspartate Amino Transferase 13 U/L (0-40); Blood Urea Nitrogen 15 mg/dL (8-23); Carbon Dioxide 28 mmol/L (22-29); Chloride 101 mmol/L (98-107); Creatinine Clr Calc Pharmacy 89.5242; Globulin 2.3 g/dL (1.3-4.6); Glomerular Filtration Rate 95.6 mL/min (90-130); Glucose 148 mg/dL (65-115); Osmolality Calculated 292 mOsm/kg (285-295); Potassium 4.6 mmol/L (3.5-5.1); Sodium 139 mmol/L (136-145); Thyroid Stimulating Hormone 5.79 uIU/mL (0.27-4.20); Total Bilirubin 0.6 mg/dL (0.15-1.2); Total Protein 6.5 g/dL (6.6-8.7)
[2024-06-23] MEDS: durvalumab 1,500 MG in sodium chloride 0.9% 250 ML 280 MG IV (12:56)
[2024-06-23 13:52] VITALS: BP 147/71; PULSE 88; TEMP 36.5; O2SAT 95
== END 2024-06-23 23:59 | disposition home or self-care (01) ==
PROVIDERS: PCP Family Medicine; Visit Provider Nurse Practitioner Family
DX: Z53.9 Procedure and treatment not carried out, unspecified reason; C34.81 Malignant neoplasm of overlapping sites of right bronchus and lung; Z92.3 Personal history of irradiation; Z51.12 Encounter for antineoplastic immunotherapy; Z86.711 Personal history of pulmonary embolism; Z79.899 Other long term (current) drug therapy
CPT/HCPCS: 71260; 74177; 80053; 84443; 85025; 96413; 99214; A4222; J7050; J9173

== ENCOUNTER → 2024-06-30 12:59 | Outpatient (BNVA) | payer MEDICARE, SELFPAY | PROVIDERS: PCP Family Medicine; Referring Provider Internal Medicine Hematology & Oncology; Visit Provider Student in an Organized Health Care Education/Training Program | DX: Z95.828 Presence of other vascular implants and grafts (principal); C34.81 Malignant neoplasm of overlapping sites of right bronchus and lung | CPT/HCPCS: 99204; 99214 ==

== ENCOUNTER 2024-07-06 07:44 | Day surgery (SDC) | payer MEDICARE, SELFPAY ==
[2024-07-06] VITALS (8 sets, daily range): BP systolic 124–153; BP diastolic 67–81; PULSE 71–86; RESP 16–18; TEMP 36.2–36.8; O2SAT 95–100; BMI 23.6
[2024-07-06] MEDS: sodium chloride 0.9% 1,000 ML 30 ML IV (08:32)
[2024-07-06] MEDS: VANCOMYCIN ADD-Vantage 1,000 MG in 0.9% NaCl ADD-Vantage 250 ML 250 MG IV (08:59)
--- NOTE | 2024-07-06 09:18 | W.PM.OPSUD ---
Surgery/Procedure H&P Update DATE OF PROCEDURE: July 06, 2024 DATE H&P PERFORMED: 06/30/24 H&P UPDATE INFORMATION: I have reviewed H&P completed within last 30 days, I have examined patient prior to procedure and No changes to prior documentation PLANNED PROCEDURE: Operation Date: 07/06/24 09:10 Proposed Procedures p Portacath Placement 61081, Z95.828, C34.81(Not Applicable) - Gearld Reid MD
--- NOTE | 2024-07-06 09:25 | ANES.PREANE2 ---
Pre-Anesthetic Assessment Height/Weight: Height 1.8 m Weight 76.657 kg Temp Pulse Resp BP Pulse Ox O2 Del Method 97.7 F 86 18 128/78 95 Room Air 07/06/24 07:53 07/06/24 07:53 07/06/24 07:53 07/06/24 07:53 07/06/24 07:53 07/06/24 07:53 Operation Date: 07/06/24 09:10 Proposed Procedures p Portacath Placement 22230, Z95.828, C34.81(Not Applicable) - Gerald Reid MD Familial anesthetic complications: none Was Beta Nichelle taken within 24 hours: N/A Was Clonidine taken within 24 hours: N/A Last intake: Intake Last Liquid Date 07/05/24 Last Liquid Time 23:59 Last Solid Date 07/05/24 Last Solid Time 23:59 Social No alcohol and No tobacco Exam alert, oriented x 3, clear to auscultation bilaterally and regular rate & rhythm Airway Mallampati: Class II Dentition: full Pulmonary R lung CA PE CV/HEM Hypertension ? atrial thrumbus Anesthetic Plan ASA status: 4 Anesthesia: MAC Risk of > 500 ml blood loss (7ml/kg in children): No Medications/Allergies Home Medications Medication Instructions Recorded Confirmed Last Taken Type aspirin 81 mg tablet,delayed 81 mg PO DAILY 04/29/23 07/06/24 11/19/23 History release (Adult Low Dose Aspirin) clopidogrel 75 mg tablet 75 mg PO DAILY #90 tabs 08/13/23 07/06/24 07/02/24 Rx metoprolol tartrate 25 mg tablet 12.5 mg (1/2 x 25 mg) PO BID #30 12/30/23 07/06/24 07/04/24 Rx tabs albuterol sulfate 90 mcg/actuation 2 puff inhalation Q6H PRN 01/28/24 07/06/24 07/05/24 Rx aerosol inhaler shortness of breath or wheezing #6.7 grams budesonide-formoterol HFA 160 2 puff inhalation BID #18 grams 01/28/24 07/06/24 06/01/24 Rx mcg-4.5 mcg/actuation aerosol inhaler (Symbicort) escitalopram oxalate 10 mg tablet 10 mg PO DAILY #30 tabs 01/28/24 07/06/24 06/29/24 Rx ondansetron HCl 4 mg tablet 4 mg PO Q8H #30 tabs 01/28/24 07/06/24 07/05/24 Rx apixaban 5 mg tablet (Eliquis) 5 mg PO BID #60 tabs 03/23/24 07/06/24 07/03/24 Rx tizanidine 4 mg tablet 4 mg PO Q8H PRN muscle spasticity 05/16/24 07/06/24 Unknown Rx #30 tabs morphine 30 mg tablet,extended 30 mg PO Q12H PRN Pain, Moderate 06/22/24 07/06/24 07/06/24 Rx release 30 days #60 tabs lorazepam 1 mg tablet 0.5 - 1 mg (0.5 - 1 x 1 mg) PO Q6H 06/24/24 07/06/24 06/21/24 Rx PRN Severe Nausea #30 tabs Allergies Allergy/AdvReac Type Severity Reaction Status Date / Time Penicillins Allergy Unknown ALGY-Swell Verified 07/06/24 07:57 Lip/Tongue/Throat Current Medications Generic Name Dose Route Start Last Admin Trade Name Freq PRN Reason Stop Dose Admin Sodium Chloride 1,000 mls @ 30 mls/hr 07/06/24 08:00 07/06/24 08:32 Sodium Chloride 0.9% IV 07/07/24 07:59 30 mls/hr .Q24H HOLLIE Administration PFSH Anesthesia Medical History (Updated 06/30/24 @ 13:08 by ROBERT Meyers) Compression fracture of T7 vertebra Cavitary lesion of lung Constipation Cancer related pain Non-small cell lung cancer Immunosuppressed due to chemotherapy Drug or medicinal substance causing adverse effect in therapeutic use Antineoplastic chemotherapy induced anemia Chemotherapy-induced vomiting Secondary malignant neoplasm of mediastinum Chemotherapy management, encounter for Malignant neoplasm of overlapping sites of right lung Lung cancer metastatic to bone GI (gastrointestinal bleed) Mass of right lung Bilateral direct inguinal hernia CAD (coronary artery disease) Tobacco abuse PAD (peripheral artery disease) Erectile 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 COPD (chronic obstructive pulmonary disease) Hyperlipidemia Surgical History Status post peripheral artery angioplasty with insertion of stent History of angioplasty of peripheral vessel History of right shoulder replacement History of chest tube placement History of laparoscopic cholecystectomy Family History Father Diabetes Brother , AGE 60 CAD (coronary artery disease) Myocardial infarction Mother Diabetes Grandfather Diabetes MATERNAL Grandmother Diabetes MATERNAL Social History Smoking and tobacco/nicotine status: former use of tobacco/nicotine Quit status (tobacco/nicotine): has quit using Year quit tobacco: 2022 Former quit date comment: has had no cigarette tobacco for 10 days/smoked for 50 years Alcohol intake: former Substance/Drug Use: current Substance/Drug use frequency: few times a week Household members: none Marital status: Number of children: 1 service: No 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
--- NOTE | 2024-07-06 09:33 | SC_ITS ---
WS: [id number] C-arm FL for CVA [id number] REASON FOR EXAM: port placement FINDINGS: Right chest chemotherapy infusion port with right internal jugular infusion catheter. Tip of the cath eter is at the cavoatrial junction. SC/C-arm FL for CVA [id number] IMPRESSION: Properly positioned right chemotherapy infusion port and catheter as above.
[2024-07-06] MEDS: lidocaine-epi 1% 20 mL INJ INJECTION (10:10)
[2024-07-06] MEDS: BUPivacaine 0.25% INJ 10 mL INJECTION (10:10)
--- NOTE | 2024-07-06 10:20 | W.PM.BPONFUL ---
Date of Procedure: 07/06/2024 Surgeon: Dr. Reid Client Experience Administrator(s): N/A Procedure(s) performed: Port placement right IJ. Intraoperative fluoroscopy interpretation. Findings of the procedure(s): Port placed on right chest. Access right internal jugular vein using ultrasound and fluoroscopy. Adequate positioning of catheter confirmed using intraoperative fluoroscopy. Estimated blood loss: 10 cc Specimen(s) removed: None Post-operative diagnosis: Lung cancer Pathology: N/A Implant(s): Port-A-Cath Anesthesia: MAC Complications: N/A Brief history/preop diagnosis: 69-year-old male with a history of lung cancer who needed a port for chemotherapy. Discussed risk and benefits and patient agreed to proceed. Full operative report: Patient was brought into the operating room and a timeout was carried out. Procedure was done under MAC. Patient was placed supine with the arms tucked and in Trendelenburg. Patient was prepped and draped in the usual sterile fashion. Using ultrasound guidance the right internal jugular vein was accessed. A guidewire was then placed down to the atriocaval junction using fluoroscopy. The finder needle was removed and the guidewire was secured. I then turned my attention to creating a pocket over the right chest. Make sure to locally infiltrated using plain lidocaine and bupivacaine at the site of the pocket and throughout the tunnel site. I confirmed adequate hemostasis at the pocket. I then proceeded to place the port that was already preassembled and flushed with heparinized saline and the chest pocket. I tunneled the catheter from the chest to the neck at the site where I accessed the internal jugular vein. I measured and adjusted the length of the catheter so it would reach the atrial caval junction. At this point, I used a dilator to dilate the tract into the internal jugular vein using fluoroscopy. I removed the guidewire and proceeded to thread the central venous catheter through the introducer. In the process, I removed the sheath as a completely pushed the catheter into the internal jugular vein. I then confirmed adequate placement of the catheter by performing intraoperative interpretation of fluoroscopy. The tip of the catheter was confirmed to be placed in the atriocaval junction. There were no kinks noted throughout the trajectory of the catheter. I then proceeded to test the port and was satisfied with its functionality. I proceeded to flushed the catheter without any issues. I then hep-locked the port. Skin was closed using deep dermal 3-0 Vicryl, subcuticular 4-0 Monocryl, and Dermabond. Patient was then transferred to PACU without any complications. Condition: Stable Dispostion: Home
[2024-07-06] MEDS: heparin, porcine 1,000 unit/mL INJ 10 mL 10000 UNIT IRRIGATION (10:22)
--- NOTE | 2024-07-06 12:00 | ANE.PACU2 ---
Inpatient post-anesthesia follow up: Airway intact: Yes Vital signs: Temperature 97.9 F Pulse Rate 77 Respiratory Rate 18 Blood Pressure 124/71 Pulse Oximetry 98 Oxygen Delivery Me thod Room Air Oxygen Flow Rate 6 Fraction of Inspir ed Oxygen Hydration adequate: Yes Nausea and vomiting: No Pain level: 1 Mental status: Baseline
== END 2024-07-06 12:00 | disposition home or self-care (01) ==
PROVIDERS: PCP Family Medicine; Visit Provider Student in an Organized Health Care Education/Training Program
PROC: (CPT 36561; principal; 2024-07-06 09:00)
DX: C34.81 Malignant neoplasm of overlapping sites of right bronchus and lung (principal); I10 Essential (primary) hypertension; Z79.82 Long term (current) use of aspirin; E78.5 Hyperlipidemia, unspecified; Z87.891 Personal history of nicotine dependence; I25.10 Atherosclerotic heart disease of native coronary artery without angina pectoris; J44.9 Chronic obstructive pulmonary disease, unspecified
CPT/HCPCS: 36561; 76000; 77001; C1788; J1644; J2704; J3010; J3370; J3490; J7030; J7050

== ENCOUNTER 2024-07-15 09:13 | Emergency (ER) | payer MEDICARE, SELFPAY ==
[2024-07-15 09:15] VITALS: BP 92/66; PULSE 108; RESP 15; TEMP 36.4; O2SAT 98; BMI 22.3
--- NOTE | 2024-07-15 09:25 | CT_ITS ---
WS: [id number] CTA CHEST WITH CT ABDOMEN AND PELVIS. HISTORY: Hypertension, abdominal pain and weakness. History of lung cancer. TECHNIQUE: CT angiogram is performed through the chest. Additional imaging is performed through the a bdomen and pelvis with IV contrast. Sagittal and coronal reformats have been submitted. MIP imaging also reviewed. All CT scans at [facility] use at least one of these dose optimization techniqu es: automated exposure control; mA and/or kV adjustment per patient size (includes targeted exams whe re dose is matched to clinical indication); or iterative reconstruction. Contrast: Omnipaque 350; 95 cc IV. DLP: 693.24 mGy.cm COMPARISON: 06/14/2024 Chest CTA: Pleural-based irregular consolidation is reidentified extending over a length of 7.4 cm. T ransversely by 6.3 cm and anterior posterior 2.7 cm. Consolidation begins in the posterior segment o f the RIGHT upper lobe and extends inferiorly into the lower lobe. Irregular consolidation has been p reviously described and consistent with neoplasm. There is been no improvement in the consolidation. Extension of the consolidation into the chest wall involving the intercostal muscles. Chronic appeari ng rib deformities are probably related to prior treatment. Progression of RIGHT hilar lymph nodes and bronchial wall thickening extending into the RIGHT lower l obe. Smaller paratracheal lymph nodes. Good opacification of the pulmonary arteries. There are no filling defects or pulmonary emboli. Decre ased filling in the very distal RIGHT lower lobe pulmonary artery. This may be due to poor opacificat ion or very tiny peripheral emboli. No defect in the RIGHT atrial appendage. Normal size aorta. Heart size is normal with no RIGHT heart strain. There is progressive bronchial wall thickening and RIGHT hilar adenopathy since 06/14/2024. Abdomen CT: Small hiatal hernia. Normal liver and spleen. Splenic granulomata. Prior cholecystectomy. Mild pancreatic atrophy. Normal adrenal glands. Bilateral renal cysts. No renal obstruction. Moderat e atherosclerotic plaque aorta. Good opacification of the mesenteric arteries. Normal appearance of the stomach. No small bowel obstruction. Diffuse constipation. Normal appendix. No colitis. Pelvic CT: Well-distended urinary bladder. No free fluid or adenopathy. Heavily calcified plaque in t he iliac arteries. LEFT femoral artery stent. CT/CT angio chest w abd pel w con IMPRESSION: 1. No central pulmonary embolism. Decreased enhancement of the very peripheral RIGHT lower lobe pulmonary artery branch. This may be due to poor contrast clarisa us enhancement or small emboli. 2. Increase in size of the pleural parenchymal consolidation in the RIGHT lung . Consolidation is contiguous from the RIGHT upper lobe into the RIGHT lower lo be. Increase in size may be response to therapy or progression of neoplastic di sease. 3. Increasing RIGHT hilar lymphadenopathy and RIGHT lower lobe peribronchial t hickening. Suspicious for progression of adenopathy. 4. No ascites or adenopathy. 5. Prior cholecystectomy. 6. Bilateral renal cysts with no obstruction. 7. No ascites.
--- NOTE | 2024-07-15 09:25 | XR_ITS ---
WS: [id number] Portable AP upright chest, 07/15/2024 Clinical Data: Possible Sepsis Comparison: Portable chest, 04/25/2023 Findings: There is an increase in the density of the right hilum. There is peripheral patchy opacity which represents a pleural-based density in the right posterior thorax. No effusions are seen. The h eart is normal. The pulmonary vascularity is not increased. No pneumothorax is seen. The aortic arch shows tortuosity. There is an infusion catheter entering the right internal jugular vein and ending in the superior vena cava. The left lung is clear. The patient had a reverse right shoulder arthropla sty. There are multiple right rib deformities from old fractures. XR/XR chest 1V portable [id number] Impression: 1. Increase in density of right hilum which could represent pneumonia. 2. Peripheral right midlung opacity unchanged.
--- NOTE | 2024-07-15 09:26 | ED_ITS ---
HPI - Weakness 2 General: Chief complaint: Weakness Stated complaint: hypotensive Time Seen by Provider: 07/15/24 09:19 Source: patient and EMS Mode of arrival: EMS Limitations: no limitations History of Present Illness: 69-year-old male has a history of lung c ancer he states he started new chemo treatment on Thursday he states that he has been having increasing weakness and fatigue states he is also been having some shortness of breath along with abdominal cramping pain. He states he felt extremely fatigued today has been hypotensive with EMS he denies any fever denies any vomiting Associated symptoms: Denies chest pain, chills, dysuria, fever(s), headache(s), nausea or vomiting Review of Systems 2 Const: Reports: fatigue and malaise; Denies: fever(s), chills, body aches or change in appetite ENMT: Denies: throat pain or dental pain Card: Denies: chest pain Resp: Reports: dyspnea GI: Reports: abdominal pain; Denies: nausea, vomiting or diarrhea : Denies: dysuria Musc: Denies: neck pain or back pain Skin/Breast: Denies: rash Neuro: Denies: headache(s) PFSH ED 2 PFSH: Medical History Compression fracture of T7 vertebra Cavitary lesion of lung Constipation Cancer related pain Non-small cell lung cancer Immunosuppressed due to chemotherapy Drug or medicinal substance causing adverse effect in therapeutic use Antineoplastic chemotherapy induced anemia Chemotherapy-induced vomiting Secondary malignant neoplasm of mediastinum Chemotherapy management, encounter for Malignant neoplasm of overlapping sites of right lung Lung cancer metastatic to bone GI (gastrointestinal bleed) Mass of right lung Bilateral direct inguinal hernia CAD (coronary artery disease) Tobacco abuse PAD (peripheral artery disease) Erectile 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 COPD (chronic obstructive pulmonary disease) Hyperlipidemia Surgical History Status post peripheral artery angioplasty with insertion of stent History of angioplasty of peripheral vessel History of right shoulder replacement History of chest tube placement History of laparoscopic cholecystectomy Family History Father Diabetes Brother , AGE 60 CAD (coronary artery disease) Myocardial infarction Mother Diabetes Grandfather Diabetes MATERNAL Grandmother Diabetes MATERNAL Social History Smoking and tobacco/nicotine status: former use of tobacco/nicotine Quit status (tobacco/nicotine): has quit using Year quit tobacco: 2022 Former quit date comment: has had no cigarette tobacco for 10 days/smoked for 50 years Alcohol intake: former Substance/Drug Use: current Substance/Drug use frequency: few times a week Household members: none Marital status: Number of children: 1 service: No 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 kings needs: No Physical Exam 2 Const: COMMON NORMALS: patient oriented x3 GENERAL APPEARANCE: ill appearing HENMT: COMMON NORMALS: normocephalic and atraumatic HEAD & SCALP: n ormocephalic and atraumatic Neck/C-Spine: COMMON NORMALS: full ROM and supple Chest: COMMONS NORMALS: normal inspection of the chest Resp: COMMON NORMALS: normal respiratory effort, No retractions, No use of accessory muscles and clear to auscultation bilaterally AUSCULTATION: clear to auscultation bilaterally Cardio: COMMON NORMALS: regular rate, regular rhythm and No murmurs present (Cardio) RATE: regular rate RHYTHM: regular rhythm GI: COMMON NORMALS: Normal to inspection, nondistended, normoactive bowel sounds present, Soft to palpation, non-tender and no masses PALPATION: Yes Soft to palpation Extremity: COMMON NORMALS: normal to inspection and full ROM Neuro: COMMON NORMALS: patient oriented x3, moves all extremities and no focal motor deficits Psych: COMMON NORMALS: mental status grossly normal, Normal thought process present and cooperative THOUGHT PROCESS: Normal thought process present Skin: COMMON NORMALS: no rashes or lesions noted and no wounds GENERAL SKIN EXAM: no rashes or lesions noted Course 2 Vital Signs: Vital signs: Vital Signs Temperature 97.5 F L 07/15/24 09:15 Pulse Rate 94 07/15/24 12:22 Respiratory Rate 18 07/15/24 12:22 Blood Pressure 126/66 07/15/24 12:22 Pulse Oximetry 95 07/15/24 12:22 Oxygen Delivery Me thod Room Air 07/15/24 12:22 MDM - Weakness Medical Decision Making Patient presents here with generalized weakness likely due to his chemo he has no signs of infection no signs of PE he feels much improved here after IV fluids he had been able to ambulate the halls without any difficulty he is stable for discharge follow-up with PCP return if worsening. Medical Records I reviewed the patient's medical records. Lab Data I reviewed the patient's lab results. 07/15/24 09:00 07/15/24 09:00 Radiology Impressions Chest X-Ray 07/15/24:25 Impression: 1. Increase in density of right hilum which could represent pneumonia. 2. Peripheral right midlung opacity unchanged. Chest/Abdomen/Pelvis CT 07/15/2425 IMPRESSION: 1. No central pulmonary embolism. Decreased enhancement of the very peripheral RIGHT lower lobe pulmonary artery branch. This may be due to poor contrast bolus enhancement or small emboli. 2. Increase in size of the pleural parenchymal consolidation in the RIGHT lung. Consolidation is contiguous from the RIGHT upper lobe into the RIGHT lower lobe. Increase in size may be response to therapy or progression of neoplastic disease. 3. Increasing RIGHT hilar lymphadenopathy and RIGHT lower lobe peribronchial thickening. Suspicious for progression of adenopathy. 4. No ascites or adenopathy. 5. Prior cholecystectomy. 6. Bilateral renal cysts with no obstruction. 7. No ascites. Laboratory Results WBC 3.52 10^3/uL (3.29-11.43) 07/15/24 09:00 RBC 4.79 10^6/uL (3.85-5.65) 07/15/24 09:00 Hgb 14.30 g/dL (11.27-16.99) 07/15/24 09:00 Hct 44.2 % (37-53) 07/15/24 09:00 MCV 92.3 fl (82-101) 07/15/24 09:00 MCH 29.9 pg (27-33) 07/15/24 09: MCHC 32.4 g/dL (30-55) 07/15/24 09: RDW 12.7 % (12.1-15.1) 07/15/24 09:00 Plt Count 209 10^3/cmm (157-399) 07/15/24 09: MPV 10.0 fL (7.4-10.4) 07/15/24 09:00 Neut % (Auto) 83.4 % 07/15/24 09:00 Lymph % (Auto) 12.5 % 07/15/24 09:00 [place] % (Auto) 0.6 % 07/15/24 09:00 Eos % (Auto) 2.6 % 07/15/24 09:00 Baso % (Auto) 0.3 % 07/15/24 09:00 Neut # (Auto) 2.94 10^3/uL (1.8-7.7) 07/15/24 09:00 Lymph # (Auto) 0.4 10^3/uL (0.8-4.8) L 07/15/24 09:00 [place] # (Auto) 0.0 10^3/uL (0.2-0.9) L 07/15/24 09:00 Eos # (Auto) 0.1 10^3/uL (0.0-0.8) 07/15/24 09:00 Baso # (Auto) 0.0 10^3/uL (0.0-0.1) 07/15/24 09:00 Nucleated RBC % (auto) 0 % 07/15/24 09:00 Nucleated RBCs # 0.0 /100WBC 07/15/24 09:00 PT 12.70 SECONDS (12.1-14.9) 07/15/24 09:00 INR 0.93 (0.8-1.2) 07/15/24 09:00 Sodium 140 mmol/L (136-145) 07/15/24 09:00 Potassium 4.2 mmol/L (3.5-5.1) 07/15/24 09:00 Chloride 103 mmol/L (98-107) 07/15/24 09:00 Carbon Dioxide 28 mmol/L (22-29) 07/15/24 09:00 Anion Gap 13.2 (5-19) 07/15/24 09:00 BUN 24 mg/dL (8-23) H 07/15/24 09:00 Creatinine 0.7 mg/dL (0.7-1.2) 07/15/24 09:00 GFR Calculation 111.5 mL/min (90-130) 07/15/24 09:00 Glucose 190 mg/dL (65-115) H 07/15/24 09:00 Calculated Osmolality 299 mOsm/kg (285-295) H 07/15/24 09:00 Lactic Acid 0.8 mmol/L (0.5-2.2) 07/15/24 10:39 Calcium 8.2 mg/dL (8.5-10.5) L 07/15/24 09:00 Magnesium 2.1 mg/dL (1.7-2.3) 07/15/24 09:00 Total Bilirubin 1.4 mg/dL (0.15-1.2) H 07/15/24 09:00 AST 17 U/L (0-40) 07/15/24 09:00 ALT 22 U/L (0-41) 07/15/24 09:00 Alkaline Phosphatase 134 U/L (40-130) H 07/15/24 09:00 Total Protein 6.1 g/dL (6.6-8.7) L 07/15/24 09:00 Albumin 3.7 g/dL (3.5-5.2) 07/15/24 09:00 Globulin 2.4 g/dL (1.3-4.6) 07/15/24 09:00 Urine Color Dark yellow (Yellow) A 07/15/24 11:15 Urine Appearance Clear (CLEAR) 07/15/24 11:15 Urine pH 5.5 (5-7) 07/15/24 11:15 Ur Specific [place] 1.035 (1.005-1.030) H 07/15/24 11:15 Urine Protein Negative (Negative) 07/15/24 11:15 Urine Glucose (UA) Trace (Normal) H 07/15/24 11:15 Urine Ketones Negative (Negative) 07/15/24 11:15 Urine Blood Negative (Negative) 07/15/24 11:15 Urine Nitrate Negative (Negative) 07/15/24 11:15 Urine Bilirubin Negative (Negative) 07/15/24 11:15 Urine Urobilinogen 1.0 mg/dL (Negative) 07/15/24 11:15 Ur Leukocyte Esterase Negative (Negative) 07/15/24 11:15 Urine RBC 0-2 /hpf (0-2) 07/15/24 11:15 Urine WBC 0-5 /hpf (0-5) 07/15/24 11:15 Ur Squamous Epith Cells 0-5 /hpf (0-5) 07/15/24 11:15 Amorphous Sediment Trace /hpf 07/15/24 11:15 Urine Bacteria None seen /hpf (NONE) 07/15/24 11:15 Hyaline Casts 1.21 /lpf 07/15/24 11:15 Urine Sperm 1+ /hpf 07/15/24 11:15 All radiology interpretation(s) finalized by discharge EKG Data EKG 1: I personally reviewed and interpreted this EKG as follows: EKG interpretation date: 07/15/24 EKG interpretation time: 09:46 Interpretation: nsr hr [address] elevation qrs 95 qtc 399 Discharge Plan Discharge Patient Disposition: Home Clinical Impression: Generalized weakness Condition: Stable Prescriptions: No Action aspirin [Adult Low Dose Aspirin] 81 mg tablet,delayed release (DR/EC) 81 mg PO DAILY Patient Comments: patient stated in addition to Plavix metoprolol tartrate 25 mg tablet 12.5 mg PO BID Qty: 30 0RF escitalopram oxalate 10 mg tablet 10 mg PO DAILY Qty: 30 2RF ondansetron HCl 4 mg tablet 4 mg PO Q8H Qty: 30 1RF Symbicort 160-4.5 mcg/actuation HFA aerosol inhaler 2 puff INHALATION BID Qty: 18 1RF albuterol sulfate 90 mcg/actuation HFA aerosol inhaler 2 puff INHALATION Q6H PRN (Reason: shortness of breath or wheezing) Qty: 6.7 1RF clopidogrel 75 mg tablet 75 mg PO DAILY Qty: 90 3RF Hold Instructions: Resume on 10/24/22. Eliquis 5 mg tablet 5 mg PO BID Qty: 60 0RF Hold Instructions: Resume on 07/07/24. Rx Instructions: TAKE 1 TABLET BY MOUTH TWICE DAILY tizanidine 4 mg tablet 4 mg PO Q8H PRN (Reason: muscle spasticity) Qty: 30 0RF morphine 30 mg tablet extended release 30 mg PO Q12H PRN (Reason: Pain, Moderate) 30 Days Qty: 60 0RF lorazepam 1 mg tablet 0.5 - 1 mg PO Q6H PRN (Reason: Severe Nausea) Qty: 30 3RF lidocaine-prilocaine 2.5-2.5 % cream 1 applic topical .COMPLEX Qty: 30 0RF Rx Instructions: 30 minutes prior to port access, apply quarter size amount and rub in; cover with saran wrap Discharge Orders: Discharge ED (Routine); Ordered 07/15/24 Ordered By: Micki Redman Referrals: Liya Huerta MD [Primary Care Provider] - 4-7 days Discharge Diet: Advance as tolerated Discharge Activity: Resume usual activity Patient Instructions: Weakness (Generalized) Coding Level of Care Code ED Referral Coordinator for Chg Fwd Related Data Home Medications Medication Instructions Recorded Confirmed aspirin 81 mg tablet,delayed 81 mg PO DAILY 04/29/23 07/07/24 release (Adult Low Dose Aspirin) Previous Rx's Medication Instructions Recorded clopidogrel 75 mg tablet 75 mg PO DAILY #90 tabs 08/13/23 metoprolol tartrate 25 mg tablet 12.5 mg (1/2 x 25 mg) PO BID #30 12/30/23 tabs albuterol sulfate 90 mcg/actuation 2 puff inhalation Q6H PRN 01/28/24 aerosol inhaler shortness of breath or wheezing #6.7 grams budesonide-formoterol HFA 160 2 puff inhalation BID #18 grams 01/28/24 mcg-4.5 mcg/actuation aerosol inhaler (Symbicort) escitalopram oxalate 10 mg tablet 10 mg PO DAILY #30 tabs 01/28/24 ondansetron HCl 4 mg tablet 4 mg PO Q8H #30 tabs 01/28/24 apixaban 5 mg tablet (Eliquis) 5 mg PO BID #60 tabs 03/23/24 tizanidine 4 mg tablet 4 mg PO Q8H PRN muscle spasticity 05/16/24 #30 tabs morphine 30 mg tablet,extended 30 mg PO Q12H PRN Pain, Moderate 06/22/24 release 30 days #60 tabs lorazepam 1 mg tablet 0.5 - 1 mg (0.5 - 1 x 1 mg) PO Q6H 06/24/24 PRN Severe Nausea #30 tabs lidocaine-prilocaine 2.5 %-2.5 % 1 applic topical .COMPLEX port 07/09/24 topical cream pain #30 grams Allergies Allergy/AdvReac Type Severity Reaction Status Date / Time Penicillins Allergy Unknown ALGY-Swell Verified 07/07/24 09:08 Lip/Tongue/Throat
--- NOTE | 2024-07-15 09:30 | ECG_ITS ---
[facility] Test Date: 2024-07-15 Pat Name: Karthik Gordon Department: Room: Gender: Male Box Bender: : 1955 Requested By: Micki Redman Order Number: [id number] Patti MD: Coco Yarbrough M.D. Measurements Intervals [place] Rate: 96 P: 66 NV: 173 QRS: 74 QRSD: 95 T: 74 QT: 345 QTc: 437 Interpretive Statements SINUS RHYTHM WITH OCCASIONAL VENTRICULAR PREMATURE COMPLEXES Compared to ECG 04/25/2024 14:01:41 Ventricular premature complex(es) now present Electronically Signed On 07-17-2024 20:56:18 TURN DOWN MAN by Coco Yarbrough M.D. [email or web address]
[2024-07-15 09:34] LABS: Basophils % 0.3 %; Eosinophils # 0.1 10^3/uL (0.0-0.8); Eosinophils % 2.6 %; Hematocrit 44.2 % (37-53); Lymphocytes # 0.4 10^3/uL (0.8-4.8); Lymphocytes % 12.5 %; Mean Corpuscular HGB Conc 32.4 g/dL (30-55); Mean Corpuscular Hemoglobin 29.9 pg (27-33); Mean Corpuscular Volume 92.3 fl (82-101); Monocytes % 0.6 %; Neutrophils # 2.94 10^3/uL (1.8-7.7); Neutrophils % 83.4 %; Nucleated Red Blood Cells % 0 %; Platelet Count 209 10^3/cmm (157-399); Red Blood Count 4.79 10^6/uL (3.85-5.65); Red Cell Distribution Width 12.7 % (12.1-15.1); White Blood Count 3.52 10^3/uL (3.29-11.43)
[2024-07-15 09:41] LABS: INR 0.93 (0.8-1.2)
[2024-07-15 09:47] LABS: Alanine Aminotransferase 22 U/L (0-41); Albumin Level 3.7 g/dL (3.5-5.2); Alkaline Phosphatase 134 U/L (40-130); Anion Gap 13.2 (5-19); Aspartate Amino Transferase 17 U/L (0-40); Blood Urea Nitrogen 24 mg/dL (8-23); Calcium 8.2 mg/dL (8.5-10.5); Carbon Dioxide 28 mmol/L (22-29); Chloride 103 mmol/L (98-107); Creatinine Clr Calc Pharmacy 90.1858; Globulin 2.4 g/dL (1.3-4.6); Glomerular Filtration Rate 111.5 mL/min (90-130); Glucose 190 mg/dL (65-115); Magnesium 2.1 mg/dL (1.7-2.3); Osmolality Calculated 299 mOsm/kg (285-295); Potassium 4.2 mmol/L (3.5-5.1); Sodium 140 mmol/L (136-145); Total Bilirubin 1.4 mg/dL (0.15-1.2); Total Protein 6.1 g/dL (6.6-8.7)
[2024-07-15] MEDS: sodium chloride 0.9% 2,177.25 ML 2177.25 ML IV (09:49)
[2024-07-15] MEDS: iohexol 350 mg/mL 500 mL Btl (per mL) IV (10:14)
[2024-07-15] MEDS: AZITHROMYCIN ADD-Vantage 500 MG in 0.9% NaCl ADD-Vantage 250 ML 250 MG IV (10:37)
[2024-07-15] MEDS: cefTRIAXone 1,000 mg SDV 1000 MG IVP (10:38)
[2024-07-15 10:41] VITALS: BP 136/69; PULSE 95; RESP 21; O2SAT 97
[2024-07-15 10:59] LABS: Lactic Sepsis W/Reflex 0.8 mmol/L (0.5-2.2)
[2024-07-15] MEDS: HYDROcodone-acetaminophen 7.5-325 mg Tablet 1 TAB PO (11:20)
[2024-07-15 11:26] LABS: Bilirubin Urine Negative (Negative); Blood Urine Negative (Negative); Glucose Urine UA Trace (Normal); Ketones Urine Negative (Negative); Leukocyte Esterase Urine Negative (Negative); Nitrate Urine Negative (Negative); Protein Urine Negative (Negative); Urine Appearance Clear (CLEAR); Urine Color Dark Yellow (Yellow); pH Urine 5.5 (5-7)
[2024-07-15 11:31] LABS: Add Urine Microscopic? YES; Bacteria Urine None Seen /hpf; Hyaline Casts Urine 1.21 /lpf; RBC Urine 0-2 /hpf (0-2); Squamous Epithelial Cell Urine 0-5 /hpf (0-5); WBC Urine 0-5 /hpf (0-5)
[2024-07-15 11:45] LABS: Amorphous Sediment Urine TRACE /hpf; Specific Gravity, Urine 1.035 (1.005-1.030); UA Slide Review UA Slide Review Perf
[2024-07-15 11:46] LABS: Sperm Urine 1+ /hpf
[2024-07-15 12:22] VITALS: BP 126/66; PULSE 94; RESP 18; O2SAT 95
[2024-07-15 12:32] VITALS: BP 104/72; PULSE 99; O2SAT 95
== END 2024-07-15 12:33 | disposition home or self-care (01) ==
PROVIDERS: Emergency Provider Emergency Medicine; PCP Family Medicine
DX: R53.1 Weakness (principal); Z79.82 Long term (current) use of aspirin; Z79.01 Long term (current) use of anticoagulants; Z87.891 Personal history of nicotine dependence; Z92.21 Personal history of antineoplastic chemotherapy; C34.81 Malignant neoplasm of overlapping sites of right bronchus and lung; C79.51 Secondary malignant neoplasm of bone; I25.10 Atherosclerotic heart disease of native coronary artery without angina pectoris; J44.9 Chronic obstructive pulmonary disease, unspecified; E78.5 Hyperlipidemia, unspecified
CPT/HCPCS: 71045; 71275; 74177; 80053; 81001; 83605; 83735; 85025; 85610; 87040; 93005; 96365; 96366; 96375; 99285; J0456; J0696; J7030; J7050

== ENCOUNTER 2024-07-21 13:16 | Outpatient (CLI) | payer MEDICARE, SELFPAY ==
--- NOTE | 2024-07-21 13:21 | XR_ITS ---
WS: [id number] Exam: XR chest 1V [id number] Date/Time of Exam: 07/21/2024 1:25 PM Reason For Exam: s/p port a cath removal Comparison 07/15/2024. A right-sided central line has been removed. The lungs remain fully inflated. There is slight increas e in RIGHT perihilar infiltrate. Enlarged right pulmonary hilum. Heart size is normal. The mediastinu m is normal in contour. Hyperinflation. Vertebroplasty involving a single midthoracic vertebra. Parti ally visualized RIGHT reverse shoulder prosthesis. IMPRESSION1. Increasing RIGHT perihilar infiltrate since previous exam. RIGHT hilar enlargement as pr eviously noted. 2. Pulmonary hyperinflation. 3. Previously noted right-sided central line has been removed.
== END 2024-07-21 13:17 | disposition home or self-care (01) ==
LOC: RAD 13:17
PROVIDERS: PCP Family Medicine; Visit Provider Student in an Organized Health Care Education/Training Program
DX: Z98.890 Other specified postprocedural states (principal); R91.8 Other nonspecific abnormal finding of lung field
CPT/HCPCS: 71045

== ENCOUNTER 2024-07-25 10:52 | Oncology outpatient (recurring) (ONCR) | payer MEDICARE, SELFPAY ==
[2024-07-07 10:01] LABS: Eosinophils # 0.2 10^3/uL (0.0-0.8); Eosinophils % 4.1 %; Hematocrit 35.3 % (37-53); Lymphocytes # 0.5 10^3/uL (0.8-4.8); Lymphocytes % 9.8 %; Mean Corpuscular HGB Conc 32.3 g/dL (30-55); Mean Corpuscular Hemoglobin 30.1 pg (27-33); Mean Corpuscular Volume 93.1 fl (82-101); Mean Platelet Volume 9.2 fL (7.4-10.4); Monocytes # 0.6 10^3/uL (0.2-0.9); Monocytes % 10.4 %; Neutrophils # 3.99 10^3/uL (1.8-7.7); Neutrophils % 75.1 %; Nucleated Red Blood Cells % 0 %; Platelet Count 195 10^3/cmm (157-399); Red Blood Count 3.79 10^6/uL (3.85-5.65); Red Cell Distribution Width 13.2 % (12.1-15.1); White Blood Count 5.31 10^3/uL (3.29-11.43)
[2024-07-07 10:33] LABS: Carcinoembryonic Antigen 3.1 ng/mL (0.0-4.7); Thyroid Stimulating Hormone 1.63 uIU/mL (0.27-4.20)
[2024-07-07 10:44] LABS: Alanine Aminotransferase 18 U/L (0-41); Albumin Level 3.5 g/dL (3.5-5.2); Alkaline Phosphatase 115 U/L (40-130); Anion Gap 14.3 (5-19); Aspartate Amino Transferase 12 U/L (0-40); Blood Urea Nitrogen 14 mg/dL (8-23); Calcium 8.2 mg/dL (8.5-10.5); Carbon Dioxide 26 mmol/L (22-29); Chloride 101 mmol/L (98-107); Creatinine Clr Calc Pharmacy 89.9651; Globulin 2.2 g/dL (1.3-4.6); Glomerular Filtration Rate 164.4 mL/min (90-130); Glucose 97 mg/dL (65-115); Lactate Dehydrogenase 147 U/L (135-225); Magnesium 1.7 mg/dL (1.7-2.3); Osmolality Calculated 284 mOsm/kg (285-295); Potassium 4.3 mmol/L (3.5-5.1); Sodium 137 mmol/L (136-145); Total Bilirubin 0.6 mg/dL (0.15-1.2); Total Protein 5.7 g/dL (6.6-8.7)
[2024-07-11 08:20] LABS: Basophils % 0.2 %; Hematocrit 37.6 % (37-53); Lymphocytes # 0.4 10^3/uL (0.8-4.8); Lymphocytes % 3.7 %; Mean Corpuscular HGB Conc 31.4 g/dL (30-55); Mean Corpuscular Hemoglobin 29.4 pg (27-33); Mean Corpuscular Volume 93.5 fl (82-101); Mean Platelet Volume 9.1 fL (7.4-10.4); Monocytes # 0.4 10^3/uL (0.2-0.9); Monocytes % 4.4 %; Neutrophils # 8.85 10^3/uL (1.8-7.7); Neutrophils % 90.8 %; Nucleated Red Blood Cells % 0 %; Platelet Count 247 10^3/cmm (157-399); Red Blood Count 4.02 10^6/uL (3.85-5.65); Red Cell Distribution Width 13.1 % (12.1-15.1); White Blood Count 9.75 10^3/uL (3.29-11.43)
[2024-07-11 08:42] LABS: Alanine Aminotransferase 37 U/L (0-41); Albumin Level 3.8 g/dL (3.5-5.2); Alkaline Phosphatase 128 U/L (40-130); Aspartate Amino Transferase 20 U/L (0-40); Blood Urea Nitrogen 18 mg/dL (8-23); Calcium 8.6 mg/dL (8.5-10.5); Carbon Dioxide 25 mmol/L (22-29); Chloride 107 mmol/L (98-107); Creatinine Clr Calc Pharmacy 89.9651; Globulin 1.8 g/dL (1.3-4.6); Glomerular Filtration Rate 133.2 mL/min (90-130); Glucose 127 mg/dL (65-115); Osmolality Calculated 295 mOsm/kg (285-295); Sodium 141 mmol/L (136-145); Total Bilirubin 0.3 mg/dL (0.15-1.2); Total Protein 5.6 g/dL (6.6-8.7)
[2024-07-11 08:45] LABS: Anion Gap 13.5 (5-19); Potassium 4.5 mmol/L (3.5-5.1)
[2024-07-11] MEDS: sodium chloride 0.9% 250 ML 75 ML IV (09:48)
[2024-07-11] MEDS: dexamethasone 4 mg/mL INJ 5 mL 12 MG IVP (09:49)
[2024-07-11] MEDS: palonosetron 0.25 mg/5 mL SDV IVP (09:53)
[2024-07-11] MEDS: famotidine 20 mg/2 mL INJ IVP (09:56)
[2024-07-11] MEDS: diphenhydrAMINE 50 mg/mL SDV 1mL 25 MG IVP (10:03)
[2024-07-11] MEDS: DOCEtaxeL 140 MG in sodium chloride 0.9%(non-DEHP) 250 ML 264 MG IV (10:49)
[2024-07-11 12:01] VITALS: BP 139/81; PULSE 68; TEMP 36.5; O2SAT 95
[2024-07-18 09:25] LABS: Eosinophils % 6.1 %; Hematocrit 34.5 % (37-53); Lymphocytes # 0.2 10^3/uL (0.8-4.8); Lymphocytes % 72.7 %; Mean Corpuscular HGB Conc 33.6 g/dL (30-55); Mean Corpuscular Hemoglobin 30.2 pg (27-33); Mean Corpuscular Volume 89.8 fl (82-101); Mean Platelet Volume 9.2 fL (7.4-10.4); Monocytes % 12.1 %; Neutrophils % 9.1 %; Nucleated Red Blood Cells % 0 %; Platelet Count 212 10^3/cmm (157-399); Red Blood Count 3.84 10^6/uL (3.85-5.65); Red Cell Distribution Width 12.5 % (12.1-15.1)
[2024-07-18 10:17] LABS: Alanine Aminotransferase 16 U/L (0-41); Albumin Level 3.5 g/dL (3.5-5.2); Alkaline Phosphatase 109 U/L (40-130); Anion Gap 14.2 (5-19); Aspartate Amino Transferase 13 U/L (0-40); Blood Urea Nitrogen 12 mg/dL (8-23); Calcium 8.7 mg/dL (8.5-10.5); Carbon Dioxide 25 mmol/L (22-29); Chloride 100 mmol/L (98-107); Creatinine Clr Calc Pharmacy 90.1858; Globulin 2.5 g/dL (1.3-4.6); Glomerular Filtration Rate 133.2 mL/min (90-130); Glucose 105 mg/dL (65-115); Osmolality Calculated 280 mOsm/kg (285-295); Potassium 4.2 mmol/L (3.5-5.1); Sodium 135 mmol/L (136-145)
[2024-07-18 10:28] LABS: Neutrophils # 0.03 10^3/uL (1.8-7.7); White Blood Count 0.33 10^3/uL (3.29-11.43)
[2024-07-19 13:36] VITALS: BP 104/75; PULSE 99; RESP 19; TEMP 36.5; O2SAT 95
[2024-07-19] MEDS: sodium chloride 0.9% 1,000 ML 999 ML IV (13:54)
[2024-07-19] MEDS: ipratropium-albuterol 3 mL Neb INHALATION (14:35)
[2024-07-19] MEDS: cefepime 1,000 mg SDV 1000 MG IV (15:21)
[2024-07-19 15:26] VITALS: RESP 18
[2024-07-19] MEDS: morphine 4 mg/mL SDV 1 mL 2 MG IVP (15:26)
[2024-07-19] MEDS: famotidine 20 mg/2 mL INJ IVP (15:39)
[2024-07-21 12:57] VITALS: BP 103/67; PULSE 102; TEMP 36.5; O2SAT 95
[2024-07-21] MEDS: filgrastim-sndz 480 mcg/0.8 mL Syringe SUBCUT (12:59)
[2024-07-25 11:16] LABS: Basophils # 0.1 10^3/uL (0.0-0.1); Basophils % 1.1 %; Eosinophils % 0.5 %; Hematocrit 31.1 % (37-53); Lymphocytes # 0.7 10^3/uL (0.8-4.8); Lymphocytes % 10.9 %; Mean Corpuscular HGB Conc 32.8 g/dL (30-55); Mean Corpuscular Hemoglobin 29.7 pg (27-33); Mean Corpuscular Volume 90.4 fl (82-101); Mean Platelet Volume 9.1 fL (7.4-10.4); Monocytes # 0.6 10^3/uL (0.2-0.9); Monocytes % 10.5 %; Neutrophils # 4.43 10^3/uL (1.8-7.7); Neutrophils % 72.4 %; Nucleated Red Blood Cells % 0 %; Platelet Count 343 10^3/cmm (157-399); Red Blood Count 3.44 10^6/uL (3.85-5.65); Red Cell Distribution Width 13.2 % (12.1-15.1); White Blood Count 6.12 10^3/uL (3.29-11.43)
[2024-07-25 11:34] LABS: Alanine Aminotransferase 14 U/L (0-41); Albumin Level 3.6 g/dL (3.5-5.2); Alkaline Phosphatase 140 U/L (40-130); Anion Gap 18.9 (5-19); Aspartate Amino Transferase 16 U/L (0-40); Blood Urea Nitrogen 21 mg/dL (8-23); Calcium 8.5 mg/dL (8.5-10.5); Carbon Dioxide 20 mmol/L (22-29); Chloride 106 mmol/L (98-107); Creatinine Clr Calc Pharmacy 65.5896; Globulin 2.5 g/dL (1.3-4.6); Glomerular Filtration Rate 66.2 mL/min (90-130); Glucose 92 mg/dL (65-115); Osmolality Calculated 295 mOsm/kg (285-295); Potassium 3.9 mmol/L (3.5-5.1); Sodium 141 mmol/L (136-145); Total Bilirubin 0.3 mg/dL (0.15-1.2); Total Protein 6.1 g/dL (6.6-8.7)
== END 2024-07-30 23:59 | disposition home or self-care (01) ==
PROVIDERS: Internal Medicine Hematology & Oncology; Nurse Practitioner Family; PCP Family Medicine; Visit Provider Nurse Practitioner Family
DX: Z53.9 Procedure and treatment not carried out, unspecified reason (principal); C34.81 Malignant neoplasm of overlapping sites of right bronchus and lung
CPT/HCPCS: 36415; 36591; 80053; 82378; 83615; 83735; 84443; 85025; 87040; 96360; 96372; 96375; 96413; 99213; 99214; 99215; J0692; J1100; J1200; J2270; J2469; J3490; J7030; J7050; J9171; Q5101

== ENCOUNTER → 2024-07-26 14:21 | Outpatient (BNVA) | payer MEDICARE, SELFPAY | PROVIDERS: PCP Family Medicine; Visit Provider Internal Medicine | DX: R00.0 Tachycardia, unspecified (principal); I95.9 Hypotension, unspecified; Z86.711 Personal history of pulmonary embolism; Z79.01 Long term (current) use of anticoagulants | CPT/HCPCS: 99213 ==

== ENCOUNTER → 2024-08-01 12:14 | Day surgery (SDC) | payer MEDICARE, SELFPAY ==
--- NOTE | 2024-08-01 12:23 | XR_ITS ---
WS: [id number] PORTABLE CHEST HISTORY: Post PICC insertion COMPARISON: 07/21/2024 Left-sided PICC line in good position with tip terminating at the caval atrial junction. Increasing consolidation and spiculation at the RIGHT hilum extending along the fissure of the RIGHT lung. Increased pleural parenchymal consolidation centered over the RIGHT hilum since 07/21/2024. No pleural effusion or pneumothorax. Cardiac size: Normal. Mediastinum/Aorta: Ectatic atherosclerotic aorta. Mediastinal prominence has progressed since the darin or study which could be positional. Prior RIGHT humeral head replacement. XR/XR chest 1V portable [id number] IMPRESSION: 1. Satisfactory position LEFT PICC line. 2. Increasing consolidation and spiculation centered over the RIGHT hilum. Rec ently described by chest CT on 07/15/2024.
[2024-08-01 12:25] VITALS: BP 150/87; PULSE 90; RESP 18; TEMP 36.7; O2SAT 95
--- NOTE | 2024-08-01 13:34 | PICC.NOTE ---
Double lumen PICC placed to left brachial vein. Referred to vascular access nurse for PICC placement due to need for chemotherapy. Risks and benefits discussed and informed consent obtained from pt. Left arm assessed with left brachial vein measuring 4.2 mm, straight, and apparent best choice for placement. Using sterile technique and MST, left brachial vein accessed x 1 stick. Mid-arm circumference measured 10 cm from left AC 25 cm. Trimmed cath 51 cm with 0 cm external length noted. CXR shows tip in distal SVC, in good position for use per radiologist. Line secured with stat-lock. Insertion site covered with Biopatch and TSM. Pt has appointment in the morning at [facility] 08/02/24 at 0730 for labs and dressing change.
== END ==
LOC: GILAB 12:14
PROVIDERS: PCP Family Medicine; Visit Provider Internal Medicine
DX: Z45.2 Encounter for adjustment and management of vascular access device (principal)
CPT/HCPCS: 36573; 71045

== ENCOUNTER 2024-08-22 09:00 | Oncology outpatient (recurring) (ONCR) | payer MEDICARE, SELFPAY ==
[2024-08-02 07:52] LABS: Hematocrit 29.5 % (37-53); Lymphocytes # 0.2 10^3/uL (0.8-4.8); Lymphocytes % 5.2 %; Mean Corpuscular HGB Conc 32.2 g/dL (30-55); Mean Corpuscular Volume 93.1 fl (82-101); Mean Platelet Volume 8.6 fL (7.4-10.4); Monocytes # 0.2 10^3/uL (0.2-0.9); Monocytes % 3.7 %; Neutrophils # 3.68 10^3/uL (1.8-7.7); Neutrophils % 90.9 %; Nucleated Red Blood Cells % 0 %; Platelet Count 290 10^3/cmm (157-399); Red Blood Count 3.17 10^6/uL (3.85-5.65); Red Cell Distribution Width 13.9 % (12.1-15.1); White Blood Count 4.05 10^3/uL (3.29-11.43)
[2024-08-02 08:10] LABS: Alanine Aminotransferase 13 U/L (0-41); Albumin Level 3.6 g/dL (3.5-5.2); Alkaline Phosphatase 122 U/L (40-130); Aspartate Amino Transferase 18 U/L (0-40); Blood Urea Nitrogen 15 mg/dL (8-23); Calcium 8.3 mg/dL (8.5-10.5); Carbon Dioxide 23 mmol/L (22-29); Chloride 101 mmol/L (98-107); Creatinine Clr Calc Pharmacy 93.1856; Glomerular Filtration Rate 133.2 mL/min (90-130); Glucose 116 mg/dL (65-115); Osmolality Calculated 282 mOsm/kg (285-295); Sodium 135 mmol/L (136-145); Total Bilirubin 0.3 mg/dL (0.15-1.2); Total Protein 5.6 g/dL (6.6-8.7)
[2024-08-02] MEDS: sodium chloride 0.9% 250 ML 75 ML IV (09:27)
[2024-08-02] MEDS: famotidine 20 mg/2 mL INJ IVP (09:29)
[2024-08-02] MEDS: diphenhydrAMINE 50 mg/mL SDV 1mL 25 MG IVP (09:31)
[2024-08-02] MEDS: palonosetron 0.25 mg/5 mL SDV IVP (09:34)
[2024-08-02] MEDS: dexamethasone 4 mg/mL INJ 5 mL 12 MG IVP (09:38)
[2024-08-02] MEDS: DOCEtaxeL 140 MG in sodium chloride 0.9%(non-DEHP) 250 ML 264 MG IV (10:22)
[2024-08-02] MEDS: pegfilgrastim 6 mg/0.6 mL Kit (onpro) SUBCUT (11:40)
[2024-08-02 11:48] VITALS: BP 146/81; PULSE 78; TEMP 36.2; O2SAT 91
[2024-08-10 12:38] LABS: Hematocrit 35.7 % (37-53); Mean Corpuscular HGB Conc 32.2 g/dL (30-55); Mean Corpuscular Hemoglobin 29.8 pg (27-33); Mean Corpuscular Volume 92.5 fl (82-101); Mean Platelet Volume 10.7 fL (7.4-10.4); Platelet Count 193 10^3/cmm (157-399); Red Blood Count 3.86 10^6/uL (3.85-5.65); Red Cell Distribution Width 14.5 % (12.1-15.1); White Blood Count 15.07 10^3/uL (3.29-11.43)
[2024-08-10] MEDS: sodium chloride 0.9% 1,000 ML 999 ML IV (12:55)
[2024-08-10] MEDS: dexamethasone 10 mg/mL INJ 6 MG IVP (12:56)
[2024-08-10] MEDS: famotidine 20 mg Tablet 40 MG PO (12:56)
[2024-08-10 13:00] LABS: Alanine Aminotransferase 9 U/L (0-41); Albumin Level 3.7 g/dL (3.5-5.2); Alkaline Phosphatase 141 U/L (40-130); Anion Gap 15.1 (5-19); Aspartate Amino Transferase 13 U/L (0-40); Blood Urea Nitrogen 21 mg/dL (8-23); Calcium 9.3 mg/dL (8.5-10.5); Carbon Dioxide 29 mmol/L (22-29); Chloride 98 mmol/L (98-107); Creatinine Clr Calc Pharmacy 89.0653; Globulin 2.5 g/dL (1.3-4.6); Glomerular Filtration Rate 111.5 mL/min (90-130); Glucose 114 mg/dL (65-115); Osmolality Calculated 290 mOsm/kg (285-295); Potassium 4.1 mmol/L (3.5-5.1); Sodium 138 mmol/L (136-145); Total Bilirubin 0.4 mg/dL (0.15-1.2); Total Protein 6.2 g/dL (6.6-8.7)
[2024-08-10] MEDS: ipratropium-albuterol 3 mL Neb INHALATION (13:01)
[2024-08-10 13:05] LABS: Slide Review Slide Review Perform
[2024-08-10 13:06] LABS: Absolute Segmented Neutrophil 11.2 10/cmm (1.6-7.1); Band Neutrophils Absolute 1.1 10^3/cmm (0.0-1.2); Eosinophils 0 %; Lymphocytes 7 %; Lymphocytes Absolute 1.4 10^3/cmm (1.2-3.4); Monocytes Absolute 0.9 10^3/cmm (0.1-0.6); Segmented Neutrophils 74 %; Total Cells Counted 100 (0-100)
[2024-08-10 13:07] LABS: Absolute Neutrophil 12.2 10^3/cmm (1.4-6.5); Platelet Estimate Normal (Normal); Polychromasia 1+
[2024-08-10 14:08] VITALS: BP 118/73; TEMP 36.4
[2024-08-12] MEDS: sodium chloride 0.9% 1,000 ML 999 ML IV (08:18)
[2024-08-12 09:32] VITALS: BP 141/71; PULSE 57; RESP 18; TEMP 36.3; O2SAT 95
[2024-08-16 10:21] LABS: Basophils % 0.6 %; Eosinophils % 0.4 %; Lymphocytes # 0.7 10^3/uL (0.8-4.8); Lymphocytes % 9.9 %; Mean Corpuscular HGB Conc 31.4 g/dL (30-55); Mean Corpuscular Hemoglobin 29.7 pg (27-33); Mean Corpuscular Volume 94.6 fl (82-101); Mean Platelet Volume 9.8 fL (7.4-10.4); Monocytes # 0.4 10^3/uL (0.2-0.9); Neutrophils # 5.75 10^3/uL (1.8-7.7); Neutrophils % 82.5 %; Nucleated Red Blood Cells % 0 %; Platelet Count 240 10^3/cmm (157-399); Red Cell Distribution Width 15.5 % (12.1-15.1); White Blood Count 6.97 10^3/uL (3.29-11.43)
[2024-08-16 11:37] LABS: Alanine Aminotransferase 8 U/L (0-41); Albumin Level 3.3 g/dL (3.5-5.2); Alkaline Phosphatase 160 U/L (40-130); Anion Gap 13.9 (5-19); Aspartate Amino Transferase 12 U/L (0-40); Blood Urea Nitrogen 13 mg/dL (8-23); Calcium 8.5 mg/dL (8.5-10.5); Carbon Dioxide 25 mmol/L (22-29); Chloride 104 mmol/L (98-107); Creatinine Clr Calc Pharmacy 89.0653; Globulin 2.2 g/dL (1.3-4.6); Glomerular Filtration Rate 111.5 mL/min (90-130); Glucose 102 mg/dL (65-115); Osmolality Calculated 288 mOsm/kg (285-295); Potassium 3.9 mmol/L (3.5-5.1); Sodium 139 mmol/L (136-145); Total Bilirubin 0.4 mg/dL (0.15-1.2); Total Protein 5.5 g/dL (6.6-8.7)
[2024-08-22 09:05] LABS: Basophils # 0.1 10^3/uL (0.0-0.1); Basophils % 0.6 %; Eosinophils % 0.1 %; Hematocrit 33.8 % (37-53); Lymphocytes % 11.7 %; Mean Corpuscular HGB Conc 31.7 g/dL (30-55); Mean Corpuscular Hemoglobin 30.1 pg (27-33); Mean Corpuscular Volume 94.9 fl (82-101); Monocytes # 0.7 10^3/uL (0.2-0.9); Monocytes % 8.3 %; Neutrophils # 6.39 10^3/uL (1.8-7.7); Neutrophils % 78.9 %; Nucleated Red Blood Cells % 0 %; Platelet Count 373 10^3/cmm (157-399); Red Blood Count 3.56 10^6/uL (3.85-5.65); Red Cell Distribution Width 15.6 % (12.1-15.1)
[2024-08-22 09:22] LABS: Alanine Aminotransferase 10 U/L (0-41); Albumin Level 3.5 g/dL (3.5-5.2); Alkaline Phosphatase 119 U/L (40-130); Blood Urea Nitrogen 15 mg/dL (8-23); Carbon Dioxide 28 mmol/L (22-29); Chloride 104 mmol/L (98-107); Creatinine Clr Calc Pharmacy 90.3194; Globulin 2.1 g/dL (1.3-4.6); Glomerular Filtration Rate 111.5 mL/min (90-130); Glucose 77 mg/dL (65-115); Osmolality Calculated 288 mOsm/kg (285-295); Sodium 139 mmol/L (136-145); Total Bilirubin 0.4 mg/dL (0.15-1.2); Total Protein 5.6 g/dL (6.6-8.7)
[2024-08-22 09:38] LABS: Anion Gap 12.1 (5-19); Potassium 5.1 mmol/L (3.5-5.1)
[2024-08-22 09:39] LABS: Aspartate Amino Transferase 16 U/L (0-40)
[2024-08-22] MEDS: sodium chloride 0.9% 250 ML 50 ML IV (10:24)
[2024-08-22] MEDS: diphenhydrAMINE 50 mg/mL SDV 1mL 25 MG IVP (10:24)
[2024-08-22] MEDS: famotidine 20 mg/2 mL INJ IVP (10:31)
[2024-08-22] MEDS: palonosetron 0.25 mg/5 mL SDV IVP (10:33)
[2024-08-22] MEDS: dexamethasone 4 mg/mL INJ 5 mL 12 MG IVP (10:35)
[2024-08-22] MEDS: DOCEtaxeL 140 MG in sodium chloride 0.9%(non-DEHP) 250 ML 264 MG IV (11:08)
[2024-08-22 12:16] VITALS: BP 139/81; PULSE 64; RESP 16; TEMP 36; O2SAT 94
[2024-08-22] MEDS: pegfilgrastim 6 mg/0.6 mL Kit (onpro) SUBCUT (12:20)
== END 2024-08-22 23:59 | disposition home or self-care (01) ==
PROVIDERS: Nurse Practitioner Family; PCP Family Medicine; Visit Provider Nurse Practitioner Family
DX: Z51.11 Encounter for antineoplastic chemotherapy; C34.81 Malignant neoplasm of overlapping sites of right bronchus and lung; Z79.899 Other long term (current) drug therapy; Z87.891 Personal history of nicotine dependence; Z92.3 Personal history of irradiation; Z53.9 Procedure and treatment not carried out, unspecified reason; R53.0 Neoplastic (malignant) related fatigue; G89.3 Neoplasm related pain (acute) (chronic); D70.1 Agranulocytosis secondary to cancer chemotherapy; D64.81 Anemia due to antineoplastic chemotherapy; Z79.891 Long term (current) use of opiate analgesic; Z79.52 Long term (current) use of systemic steroids
CPT/HCPCS: 80053; 85007; 85025; 96360; 96375; 96377; 96413; 99214; J1100; J1200; J2469; J2506; J3490; J7030; J7050; J9171

== ENCOUNTER 2024-09-29 13:00 | Oncology outpatient (recurring) (ONCR) | payer MEDICARE, SELFPAY ==
[2024-09-12 09:07] LABS: Basophils % 0.1 %; Hematocrit 32.2 % (37-53); Lymphocytes # 0.3 10^3/uL (0.8-4.8); Lymphocytes % 2.3 %; Mean Corpuscular HGB Conc 32.3 g/dL (30-55); Mean Corpuscular Hemoglobin 31.6 pg (27-33); Mean Corpuscular Volume 97.9 fl (82-101); Mean Platelet Volume 8.8 fL (7.4-10.4); Monocytes # 0.4 10^3/uL (0.2-0.9); Monocytes % 3.1 %; Neutrophils # 10.44 10^3/uL (1.8-7.7); Neutrophils % 93.9 %; Nucleated Red Blood Cells % 0 %; Platelet Count 332 10^3/cmm (157-399); Red Blood Count 3.29 10^6/uL (3.85-5.65); Red Cell Distribution Width 15.9 % (12.1-15.1); White Blood Count 11.13 10^3/uL (3.29-11.43)
[2024-09-12 09:26] LABS: Alanine Aminotransferase 13 U/L (0-41); Albumin Level 3.5 g/dL (3.5-5.2); Alkaline Phosphatase 155 U/L (40-130); Aspartate Amino Transferase 11 U/L (0-40); Blood Urea Nitrogen 24 mg/dL (8-23); Calcium 8.6 mg/dL (8.5-10.5); Carbon Dioxide 22 mmol/L (22-29); Chloride 99 mmol/L (98-107); Globulin 2.3 g/dL (1.3-4.6); Glomerular Filtration Rate 95.6 mL/min (90-130); Glucose 142 mg/dL (65-115); Osmolality Calculated 282 mOsm/kg (285-295); Sodium 133 mmol/L (136-145); Total Bilirubin 0.2 mg/dL (0.15-1.2); Total Protein 5.8 g/dL (6.6-8.7)
[2024-09-12 09:27] LABS: Anion Gap 17.6 (5-19); Potassium 5.6 mmol/L (3.5-5.1)
[2024-09-12] MEDS: sodium chloride 0.9% 1,000 ML 999 ML IV (10:45)
[2024-09-12] MEDS: famotidine 20 mg/2 mL INJ IVP (10:59)
[2024-09-12] MEDS: dexamethasone 4 mg/mL INJ 5 mL 12 MG IVP (11:05)
[2024-09-12] MEDS: palonosetron 0.25 mg/5 mL SDV IVP (11:05)
[2024-09-12] MEDS: diphenhydrAMINE 50 mg/mL SDV 1mL 25 MG IVP (11:08)
[2024-09-12] MEDS: DOCEtaxeL 140 MG in sodium chloride 0.9%(non-DEHP) 250 ML 264 MG IV (11:43)
[2024-09-12 12:59] VITALS: BP 130/75; PULSE 84; RESP 18; TEMP 36.7; O2SAT 94
[2024-09-12] MEDS: pegfilgrastim 6 mg/0.6 mL Kit (onpro) SUBCUT (12:59)
[2024-09-19 15:09] VITALS: BP 150/88; PULSE 110; RESP 18; TEMP 36.6; O2SAT 96
[2024-09-19] MEDS: sodium chloride 0.9% 1,000 ML 999 ML IV (15:39)
[2024-09-19 15:53] LABS: Basophils % 0.1 %; Eosinophils % 0.1 %; Hematocrit 33.6 % (37-53); Lymphocytes # 0.7 10^3/uL (0.8-4.8); Lymphocytes % 3.9 %; Mean Corpuscular HGB Conc 32.7 g/dL (30-55); Mean Corpuscular Hemoglobin 31.2 pg (27-33); Mean Corpuscular Volume 95.2 fl (82-101); Mean Platelet Volume 10.1 fL (7.4-10.4); Monocytes # 1.8 10^3/uL (0.2-0.9); Monocytes % 10.8 %; Neutrophils % 80.5 %; Nucleated Red Blood Cells % 0 %; Platelet Count 291 10^3/cmm (157-399); Red Blood Count 3.53 10^6/uL (3.85-5.65); Red Cell Distribution Width 15.5 % (12.1-15.1); White Blood Count 16.63 10^3/uL (3.29-11.43)
[2024-09-19 16:08] LABS: Alanine Aminotransferase 24 U/L (0-41); Albumin Level 3.7 g/dL (3.5-5.2); Alkaline Phosphatase 158 U/L (40-130); Aspartate Amino Transferase 13 U/L (0-40); Blood Urea Nitrogen 21 mg/dL (8-23); Carbon Dioxide 25 mmol/L (22-29); Chloride 98 mmol/L (98-107); Creatinine Clr Calc Pharmacy 90.5397; Globulin 2.3 g/dL (1.3-4.6); Glomerular Filtration Rate 133.2 mL/min (90-130); Glucose 112 mg/dL (65-115); Osmolality Calculated 282 mOsm/kg (285-295); Sodium 134 mmol/L (136-145); Total Bilirubin 0.4 mg/dL (0.15-1.2)
[2024-09-19 16:15] LABS: Anion Gap 15.5 (5-19); Potassium 4.5 mmol/L (3.5-5.1)
[2024-09-19 16:40] LABS: Slide Review Slide Review Perform
--- NOTE | 2024-09-23 10:30 | CTR_ITS ---
PROCEDURE INFORMATION: Exam: CT Chest With Contrast; Diagnostic Exam date and time: 09/23/2024 10:30 AM Age: 69 years old Clinical indication: Condition or disease; Other: Lung cancer; Lung condition and disease; Cancer of the lung; Bilateral; Unspecified; Additional info: Compare to previous; Lung cancer TECHNIQUE: Imaging protocol: Diagnostic computed tomography of the chest with contrast. Radiation optimization: All CT scans at this facility use at least one of these dose optimization techniques: automated exposure control; mA and/or kV adjustment per patient size (includes targeted exams where dose is matched to clinical indication); or iterative reconstruction. Contrast material: OMNI 350; Contrast volume: 100 ml; Contrast route: INTRAVENOUS (IV); COMPARISON: CT angio chest w abd pel w con 07/15/2024 10:01 AM RADIATION DOSE METRICS: Total DLP (mGy-cm): 572.55 FINDINGS: Tubes, catheters and devices: Suspected left upper extremity PICC with the distal tip in the SVC. Lungs: The left lung appears hyperexpanded. There is an old calcified granuloma in the left lower lobe. The left lung is otherwise clear. Pleural spaces: The spiculated pleural-based mass spanning the inferolateral segment of the right upper lobe and superolateral segment of the right lower lobe is again noted and has increased in size along the inferior margin. It is possible that the increased soft tissue along the inferior margin of the mass is due to atelectasis, but the two areas are contiguous and difficult to differentiate. Overall the mass measures about 9 x 4 cm in transverse dimension and about 8 cm in craniocaudal dimension. The central area of cavitation within the mass is subtly more prominent on the current study. Heart: The heart size is stable. Calcified coronary artery disease. Lymph nodes: There are old calcified left hilar lymph nodes. Stable tethering of the right hilar structures towards the mass and stable small mediastinal and right hilar lymph nodes. Vasculature: Unremarkable. No aortic aneurysm. Bones/joints: Stable old right rib deformities posteriorly. Status post right shoulder arthroplasty. Stable kyphoplasty/vertebroplasty at T7. Soft tissues: Unremarkable. PROCEDURE INFORMATION: Exam: CT Abdomen And Pelvis With Contrast Exam date and time: 09/23/2024 10:30 AM Age: 69 years old Clinical indication: Condition or disease; Other: Lung cancer; Lung condition and disease; Cancer of the lung; Bilateral; Unspecified; Additional info: Compare to previous; Lung cancer TECHNIQUE: Imaging protocol: Computed tomography of the abdomen and pelvis with contrast. Radiation optimization: All CT scans at this facility use at least one of these dose optimization techniques: automated exposure control; mA and/or kV adjustment per patient size (includes targeted exams where dose is matched to clinical indication); or iterative reconstruction. Contrast material: OMNI 350; Contrast volume: 100 ml; Contrast route: INTRAVENOUS (IV); COMPARISON: CT angio chest w abd pel w con 07/15/2024 10:01 AM RADIATION DOSE METRICS: Total DLP (mGy-cm): 572.55 FINDINGS: Liver: The liver is normal in appearance. No focal liver mass or intrahepatic biliary dilatation. Gallbladder and biliary ducts: Status post cholecystectomy. Pancreas: The pancreas is normal in appearance. No evidence of pancreatic ductal dilatation. Spleen: Stable old calcified granulomas in the spleen. Adrenal glands: The adrenal glands are normal in appearance.. Kidneys and ureters: Stable simple appearing bilateral renal cortical cysts. No evidence of hydronephrosis or nephroureteral calculi. Stomach and bowel: The small bowel loops are not thickened and are nondilated. The colon is unremarkable. Appendix: No evidence of appendicitis. Intraperitoneal space: Unremarkable. No free air. No significant fluid collection. Vasculature: Patent vascular stent in the proximal left SFA. The abdominal aorta is nonaneurysmal. Lymph nodes: Unremarkable. No enlarged lymph nodes. Urinary bladder: The urinary bladder is normal in appearance. Reproductive: Unremarkable as visualized. Bones/joints: Stable multilevel chronic degenerative changes in the lower lumbar spine. No suspicious osseous lesion. Soft tissues: Unremarkable. CT/CT chest abdpel w/*[id number] IMPRESSION: 1. Progressive enlargement of the pleural-based mass in the right lower lung as described above. 2. Stable old calcified left hilar lymph nodes and stable tethering of the right hilar structures towards the right lung mass. There are stable small mediastinal and right hilar lymph nodes. 3. Calcified coronary artery disease. IMPRESSION: 1. No CT evidence of acute intra-abdominal pathology. 2. No evidence of metastatic disease in the abdomen or pelvis.
[2024-09-23] MEDS: iohexol 350 mg/mL 500 mL Btl (per mL) IV (10:50)
--- NOTE | 2024-09-29 13:41 | ONCRAD EPV_ITS ---
Radiation Oncology Established Patient Visit Patient: Karthik Gordon [id number] : 1955 Age: 69 Sex: Male Dictated by: Dr. Ruth Abbasi Date of Service: 09/29/2024 Referring Physician(s) : Eben. Diagnosis: C34.10 - Malignant neoplasm of upper lobe, unspecified bronchus or lung, Diagnosed 01/23/2023 (Active) Stage IIIC, T3, N3, M0 Radiotherapy to Date: Course: Lung 2022, Treatment Site: RT [id number], Ref. ID: [id number], Energy: 6X, Dose/Fx (cGy): 200, #Fx: , Dose Correction (cGy): 0, Total Dose Delivered (cGy): 6,000, Start Date: 03/24/2023, End Date: 06/05/2023, Elapsed Days: 73 Current History: Patient is a 67-year-old gentleman who was diagnosed in December 2022 with his lung cancer. At that time he underwent radiation and chemotherapy completing his treatments in May 2023. He received 60 Grant with concurrent chemotherapy. He subsequently developed recurrence and has under been going paclitaxel until most recently when his scans show progression of his disease. He is having increasing pain as the cancer passes through the pleural spaces and into the adjacent ribs. His pain medicine has been adjusted several times. He is no longer taking any chemotherapy. He is here today to discuss palliative radiation to try and get her pain under control. Current Medications: Allergies: Current Complaints / Review of Systems: . Vital Signs: Performed on 09/29/2024 1:17 PM BMI - 21.2 kg/m2, Height - 71 in, Weight - 152.0 lbs, Temperature - 97.6 f, Pulse - 90 /min, Respiration - 18 /min, O2 Sat - 91 % (low), Pain - 7, Fatigue - 0 and BP - 93/ 67 mm(hg). Physical Exam: General: Alert and oriented x 3. No acute distress. HEENT: Normocephalic atraumatic. Pupils are equal, sclera clear, extraocular muscles intact. LUNGS: Respiratory rate is regular nonlabored. HEART regular rate and rhythm. ABDOMEN: Mildly protuberant android pattern EXTREMITIES: No peripheral edema is identified. NEUROLOGIC: Alert and orient x 3. Gait and speech within normal limits. Performance Status: 80 Lab: None pending. Pathology: Primary, c34.10 - malignant neoplasm of upper lobe, unspecified bronchus or lung, Diagnosed 01/23/2023 (active) stage iiic, t3, n3, m0. Imaging: See HPI Impression: Recurrent non-small cell carcinoma of the lung Plan: I reviewed his current situation quite frankly. We talked about how his chemotherapy is no longer working. We talked about using the radiation to try and give him some pain relief. He understands that there is really nothing we can do that we will get rid of his cancer but he is interested in proceeding with treatment to try and help with his pain control. He says right now he actually feels like he can feel it growing inside of him. We talked about the simulation process. We reviewed the risks and side effects in detail both acute and long-term. This point he has a good understanding of these and is agreed to proceed. He will undergo simulation today and begin his treatment shortly thereafter Signed by: 09/29/2024 1:39:10 PM <<Signature on File>> Time spent with patient:30 CPT Code: CPT Code:
== END 2024-09-30 23:59 | disposition home or self-care (01) ==
PROVIDERS: PCP Family Medicine; Visit Provider Internal Medicine Medical Oncology
DX: Z51.0 Encounter for antineoplastic radiation therapy (principal); C34.81 Malignant neoplasm of overlapping sites of right bronchus and lung; Z92.21 Personal history of antineoplastic chemotherapy
CPT/HCPCS: 71260; 74177; 77263; 77334; 77470; 80053; 85025; 96360; 96372; 96375; 96377; 96413; 99214; 99215; J1100; J1200; J2469; J2506; J3490; J7030; J7050; J9171

== ENCOUNTER 2024-10-01 18:32 | Emergency (ER) | payer MEDICARE, SELFPAY ==
[2024-10-01] VITALS (7 sets, daily range): BP systolic 86–125; BP diastolic 55–88; PULSE 91–120; RESP 16–20; TEMP 36.6; O2SAT 86–96; BMI 21.1
--- NOTE | 2024-10-01 18:35 | ECG_ITS ---
[facility] [place] [facility] Date: 2024-10-01 Pat Name: Karthik Gordon Department: Room: Gender: Male [place]: : 1955 Requested By: Juliette Vergara Order Number: [id number] Reading MD: Measurements Intervals Thompson Rate: 120 P: 74 IN: 174 QRS: 77 QRSD: 86 T: 79 QT: 326 QTc: 461 Interpretive Statements SINUS TACHYCARDIA ABNORMAL RHYTHM ECG [id number]
--- NOTE | 2024-10-01 19:13 | XRR_ITS ---
PROCEDURE INFORMATION: Exam: XR Chest Exam date and time: 10/01/2024 7:30 PM Age: 69 years old Clinical indication: Shortness of breath; Prior surgery; Surgery date: 6+ months; Surgery type: Port placement; Additional info: SOB; Lung CA. TECHNIQUE: Imaging protocol: Radiologic exam of the chest. Views: 1 view. COMPARISON: CT chest abdpel w/*[id number] 09/23/2024 10:30 AM FINDINGS: Tubes, catheters and devices: Left-sided PICC with its distal tip at the superior atriocaval junction. Lungs: Similar right perihilar masslike opacity extending to the pleural surface. Pleural spaces: Unremarkable. No pleural effusion. No pneumothorax. Heart/Mediastinum: No cardiomegaly. Bones/joints: Unremarkable. XR/XR chest 1V portable [id number] IMPRESSION: As above.
--- NOTE | 2024-10-01 19:16 | ED_ITS ---
HPI - SOB/Dyspnea 2 General: Chief Complaint: Shortness of Breath/Dyspnea Stated Complaint: dizzy n/ Sob Time Seen by Provider: 10/01/24 18:51 History of Present Illness: HPI Narrative: 69-year-old male with a history of metas tatic squamous cell lung cancer. He presents with shortness of breath, cough, some sputum production, and increasing weakness over the last 2 days. No fever. No swelling. He is 2 weeks out from his last chemotherapy treatment, and due for another induction on Thursday 2 days from now. Related Data Home Medications Medication Instructions Recorded Confirmed aspirin 81 mg tablet,delayed 81 mg PO DAILY 04/29/23 09/26/24 release (Adult Low Dose Aspirin) Previous Rx's Medication Instructions Recorded metoprolol tartrate 25 mg tablet 12.5 mg (1/2 x 25 mg) PO BID #30 12/30/23 tabs budesonide-formoterol HFA 160 2 puff inhalation BID #18 grams 01/28/24 mcg-4.5 mcg/actuation aerosol inhaler (Symbicort) ondansetron HCl 4 mg tablet 4 mg PO Q8H #30 tabs 01/28/24 tizanidine 4 mg tablet 4 mg PO Q8H PRN muscle spasticity 05/16/24 #30 tabs lorazepam 1 mg tablet 0.5 - 1 mg (0.5 - 1 x 1 mg) PO Q6H 06/24/24 PRN Severe Nausea #30 tabs lidocaine-prilocaine 2.5 %-2.5 % 1 applic topical .COMPLEX port 07/09/24 topical cream pain #30 grams albuterol sulfate 90 mcg/actuation 2 puff inhalation Q6H PRN 08/09/24 aerosol inhaler shortness of breath or wheezing #6.7 grams famotidine 20 mg tablet 20 mg PO BID #60 tabs 08/10/24 dexamethasone 4 mg tablet 8 mg (2 x 4 mg) PO .COMPLEX #60 08/22/24 tabs levofloxacin 750 mg tablet 750 mg PO DAILY 7 days #7 tabs 09/19/24 polyethylene glycol 3350 17 17 g PO DAILY #119 grams 09/19/24 gram/dose oral powder (Miralax) oxycodone-acetaminophen 10 mg-325 1 tab PO Q8H PRN pain 30 days #60 09/21/24 mg tablet (Percocet) tabs apixaban 5 mg tablet (Eliquis) 5 mg PO BID #60 tabs 09/26/24 clopidogrel 75 mg tablet 75 mg PO DAILY #90 tabs 09/26/24 escitalopram oxalate 10 mg tablet 10 mg PO DAILY #30 tabs 09/26/24 morphine 60 mg tablet,extended 60 mg PO Q12H 30 days #60 tabs 09/26/24 release Allergies Allergy/AdvReac Type Severity Reaction Status Date / Time Penicillins Allergy Unknown ALGY-Swell Verified 09/26/24 09:07 Lip/Tongue/Throat PFS ED 2 PFSH: Medical History Spinal stenosis Port-A-Cath in place but then had removed Compression fracture of T7 vertebra Cavitary lesion of lung Constipation Cancer related pain Non-small cell lung cancer Immunosuppressed due to chemotherapy Drug or medicinal substance causing adverse effect in therapeutic use Antineoplastic chemotherapy induced anemia Chemotherapy-induced vomiting Secondary malignant neoplasm of mediastinum Chemotherapy management, encounter for Malignant neoplasm of overlapping sites of right lung Lung cancer metastatic to bone GI (gastrointestinal bleed) Mass of right lung Bilateral direct inguinal hernia CAD (coronary artery disease) Tobacco abuse PAD (peripheral artery disease) Erectile 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 COPD (chronic obstructive pulmonary disease) Hyperlipidemia Surgical History Status post peripheral artery angioplasty with insertion of stent History of angioplasty of peripheral vessel History of right shoulder replacement History of chest tube placement History of laparoscopic cholecystectomy Family History Father Diabetes Brother , AGE 60 CAD (coronary artery disease) Myocardial infarction Mother Diabetes Grandfather Diabetes MATERNAL Grandmother Diabetes MATERNAL Social History Smoking and tobacco/nicotine status: former use of tobacco/nicotine Quit status (tobacco/nicotine): has quit using Year quit tobacco: 2022 Former quit date comment: has had no cigarette tobacco for 10 days/smoked for 50 years Alcohol intake: former Substance/Drug Use: current Substance/Drug use frequency: few times a week Household members: none Marital status: Number of children: 1 service: No 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 kings needs: No Physical Exam 2 Const: GENERAL APPEARANCE: cooperative and ill appearing (Mildly) N UTRITIONAL APPEARANCE: thin HENMT: COMMON NORMALS: normocephalic, atraumatic and Normal external nose present HEAD & SCALP: normocephalic and atraumatic FACE & SINUS: normal facial exam and face symmetric NOSE: Normal external nose present Eye: COMMON NORMALS: Equal, round and reactive pupils present and EOMs intact bilaterally PUPIL: Yes Equal, round and reactive pupils present Neck/C-Spine: GENERAL: Yes trachea midline Chest: CHEST: Yes Symmetrical chest wall rise Resp: COMMON NORMALS: clear to auscultation bilaterally EFFORT & INSPECTION: Yes tachypneic AUSCULTATION: clear to auscultation bilaterally and diminished lung sounds Cardio: COMMON NORMALS: regular rate and regular rhythm RATE: regular rate RHYTHM: regular rhythm GI: COMMON NORMALS: Normal to inspection, nondistended, normoactive bowel sounds present Extremity: COMMON NORMALS: no pedal edema Neuro: SHAUN COMA SCALE: document GCS findings Shaun coma scale eye opening: Spontaneous Shaun coma scale verbal response: Orientated Shaun coma scale motor response: Obey commands Shaun coma scale total score: 15 S ENSORY EXAM: Yes extremities (intact) Psych: COMMON NORMALS: speech normal SPEECH: Yes normal speech Skin: COMMON NORMALS: no rashes or lesions noted GENERAL SKIN EXAM: no rashes or lesions noted Course 2 Vital Signs: Vital signs: Vital Signs Temperature 97.9 F 10/01/24 18:35 Pulse Rate 100 10/01/24 20:51 Respiratory Rate 20 H 10/01/24 20:51 Blood Pressure 125/74 10/01/24 20:50 Pulse Oximetry 94 10/01/24 20:51 Oxygen Delivery Me thod Nasal Cannula 10/01/24 20:51 Oxygen Flow Rate 2 10/01/24 20:51 MDM - SOB/Dyspnea Medical Decision Making 69-year-old man with a history of lung cancer. He presents significantly short of breath. He is on 2 L currently, does not use oxygen at home. Saturations are 94%. He still tachypneic. His blood pressure has been low, 85/65 on arrival. 99/33 currently. He is receiving IV fluid. His white blood cell count is 10.6. His chest x-ray shows a dense right lung mass, with potential infiltrate surrounding. He is on anticoagulation, so CTA has not been ordered at this point. He is oxygen dependent which is new, so he will have to be admitted. His swabs for flu and COVID's and RSV are negative. Because of this, antibiotic coverage has been ordered after blood cultures. Hospitalist is aware of admission. Lab Data 10/01/24 19:38 10/01/24 19:38 Labs/Radiology: Radiology Impressions Chest X-Ray 10/01/24 19:13 IMPRESSION: As above. Laboratory Results WBC 11.46 10^3/uL (3.29-11.43) H 10/01/24 19:38 RBC 3.47 10^6/uL (3.85-5.65) L 10/01/24 19:38 Hgb 10.60 g/dL (11.27-16.99) L 10/01/24 19:38 Hct 34.0 % (37-53) L 10/01/24 19:38 MCV 98.0 fl (82-101) 10/01/24 19:38 MCH 30.5 pg (27-33) 10/01/24 19:38 MCHC 31.2 g/dL (30-55) 10/01/24 19:38 RDW 15.5 % (12.1-15.1) H 10/01/24 19:38 Plt Count 377 10^3/cmm (157-399) 10/01/24 19:38 MPV 8.6 fL (7.4-10.4) 10/01/24 19:38 Neut % (Auto) 87.2 % 10/01/24 19:38 Lymph % (Auto) 3.5 % 10/01/24 19:38 [place] % (Auto) 8.5 % 10/01/24 19:38 Eos % (Auto) 0.1 % 10/01/24 19:38 Baso % (Auto) 0.3 % 10/01/24 19:38 Neut # (Auto) 9.99 10^3/uL (1.8-7.7) H 10/01/24 19:38 Lymph # (Auto) 0.4 10^3/uL (0.8-4.8) L 10/01/24 19:38 [place] # (Auto) 1.0 10^3/uL (0.2-0.9) H 10/01/24 19:38 Eos # (Auto) 0.0 10^3/uL (0.0-0.8) 10/01/24 19:38 Baso # (Auto) 0.0 10^3/uL (0.0-0.1) 10/01/24 19:38 Nucleated RBC % (auto) 0 % 10/01/24 19:38 Nucleated RBCs # 0.0 /100WBC 10/01/24 19:38 Sodium 137 mmol/L (136-145) 10/01/24 19:38 Potassium 4.2 mmol/L (3.5-5.1) 10/01/24 19:38 Chloride 98 mmol/L (98-107) 10/01/24 19:38 Carbon Dioxide 26 mmol/L (22-29) 10/01/24 19:38 Anion Gap 17.2 (5-19) 10/01/24 19:38 BUN 14 mg/dL (8-23) 10/01/24 19:38 Creatinine 0.9 mg/dL (0.7-1.2) 10/01/24 19:38 GFR Calculation 83.4 mL/min (90-130) L 10/01/24 19:38 Glucose 107 mg/dL (65-115) 10/01/24 19:38 Calculated Osmolality 285 mOsm/kg (285-295) 10/01/24 19:38 Lactic Acid 1.7 mmol/L (0.5-2.2) 10/01/24 19:38 Calcium 8.7 mg/dL (8.5-10.5) 10/01/24 19:38 Total Bilirubin 0.8 mg/dL (0.15-1.2) 10/01/24 19:38 AST 13 U/L (0-40) 10/01/24 19:38 ALT 11 U/L (0-41) 10/01/24 19:38 Alkaline Phosphatase 167 U/L (40-130) H 10/01/24 19:38 NT-Pro-B Natriuret Pep 190 pg/mL (0-125) H 10/01/24 19:38 Total Protein 5.9 g/dL (6.6-8.7) L 10/01/24 19:38 Albumin 3.3 g/dL (3.5-5.2) L 10/01/24 19:38 Globulin 2.6 g/dL (1.3-4.6) 10/01/24 19:38 Coronavirus (PCR) Negative (Negative) 10/01/24 18:45 Influenza A (PCR) Negative (Negative) 10/01/24 18:45 Influenza Type B (PCR) Negative (Negative) 10/01/24 18:45 RSV (PCR) Negative (Negative) 10/01/24 18:45 All radiology interpretation(s) finalized by discharge Discharge Plan Discharge Patient Disposition: Admitted As Inpatient Clinical Impression: Acute hypoxemic respiratory failure, Pneumonia Condition: Stable Prescriptions: No Action aspirin [Adult Low Dose Aspirin] 81 mg tablet,delayed release (DR/EC) 81 mg PO DAILY Patient Comments: patient stated in addition to Plavix dexamethasone 4 mg tablet 8 mg PO .COMPLEX Qty: 60 3RF Rx Instructions: 2 tabs BID day before and day after taxotere metoprolol tartrate 25 mg tablet 12.5 mg PO BID Qty: 30 0RF ondansetron HCl 4 mg tablet 4 mg PO Q8H Qty: 30 1RF Symbicort 160-4.5 mcg/actuation HFA aerosol inhaler 2 puff INHALATION BID Qty: 18 1RF famotidine 20 mg tablet 20 mg PO BID Qty: 60 0RF morphine 60 mg tablet extended release 60 mg PO Q12H 30 Days Qty: 60 0RF escitalopram oxalate 10 mg tablet 10 mg PO DAILY Qty: 30 2RF Rx Instructions: Take 1/2 tablet in evening daily for 2 weeks and then increase to 1 tablet. clopidogrel 75 mg tablet 75 mg PO DAILY Qty: 90 3RF Hold Instructions: Resume on 10/24/22. Eliquis 5 mg tablet 5 mg PO BID Qty: 60 0RF Hold Instructions: Resume on 07/07/24. Rx Instructions: TAKE 1 TABLET BY MOUTH TWICE DAILY tizanidine 4 mg tablet 4 mg PO Q8H PRN (Reason: muscle spasticity) Qty: 30 0RF lorazepam 1 mg tablet 0.5 - 1 mg PO Q6H PRN (Reason: Severe Nausea) Qty: 30 3RF lidocaine-prilocaine 2.5-2.5 % cream 1 applic topical .COMPLEX Qty: 30 0RF Rx Instructions: 30 minutes prior to port access, apply quarter size amount and rub in; cover with saran wrap albuterol sulfate 90 mcg/actuation HFA aerosol inhaler 2 puff INHALATION Q6H PRN (Reason: shortness of breath or wheezing) Qty: 6.7 1RF polyethylene glycol 3350 [Miralax] 17 gram/dose powder 17 g PO DAILY Qty: 119 2RF Rx Instructions: Mix well into any liquid but water levofloxacin 750 mg tablet 750 mg PO DAILY 7 Days Qty: 7 0RF oxycodone-acetaminophen [Percocet] 10-325 mg tablet 1 tab PO Q8H PRN (Reason: pain) 30 Days Qty: 60 0RF Referrals: Liya Huerta MD [Primary Care Provider] - Coding Level of Care Code ED [facility] for [facility]
[2024-10-01] MEDS: sodium chloride 0.9% 1,000 ML 999 ML IV (19:19)
[2024-10-01 19:34] LABS: Covid PCR NEGATIVE (Negative); Influenza A NEGATIVE (Negative); Influenza B NEGATIVE (Negative); Respiratory Syncytial Virus Ce NEGATIVE (Negative)
[2024-10-01 19:47] LABS: Basophils % 0.3 %; Eosinophils % 0.1 %; Lymphocytes # 0.4 10^3/uL (0.8-4.8); Lymphocytes % 3.5 %; Mean Corpuscular HGB Conc 31.2 g/dL (30-55); Mean Corpuscular Hemoglobin 30.5 pg (27-33); Mean Platelet Volume 8.6 fL (7.4-10.4); Monocytes % 8.5 %; Neutrophils # 9.99 10^3/uL (1.8-7.7); Neutrophils % 87.2 %; Nucleated Red Blood Cells % 0 %; Platelet Count 377 10^3/cmm (157-399); Red Blood Count 3.47 10^6/uL (3.85-5.65); Red Cell Distribution Width 15.5 % (12.1-15.1); White Blood Count 11.46 10^3/uL (3.29-11.43)
[2024-10-01 20:08] LABS: Lactic Sepsis W/Reflex 1.7 mmol/L (0.5-2.2)
[2024-10-01 20:19] LABS: Alanine Aminotransferase 11 U/L (0-41); Albumin Level 3.3 g/dL (3.5-5.2); Alkaline Phosphatase 167 U/L (40-130); Aspartate Amino Transferase 13 U/L (0-40); Blood Urea Nitrogen 14 mg/dL (8-23); Calcium 8.7 mg/dL (8.5-10.5); Carbon Dioxide 26 mmol/L (22-29); Chloride 98 mmol/L (98-107); Creatinine Clr Calc Pharmacy 80.8716; Globulin 2.6 g/dL (1.3-4.6); Glomerular Filtration Rate 83.4 mL/min (90-130); Glucose 107 mg/dL (65-115); NT Pro B Type Natriuretic Pept 190 pg/mL (0-125); Osmolality Calculated 285 mOsm/kg (285-295); Sodium 137 mmol/L (136-145); Total Bilirubin 0.8 mg/dL (0.15-1.2); Total Protein 5.9 g/dL (6.6-8.7)
[2024-10-01 20:27] LABS: Anion Gap 17.2 (5-19); Potassium 4.2 mmol/L (3.5-5.1)
[2024-10-01] MEDS: ipratropium-albuterol 3 mL Neb INHALATION (20:50)
[2024-10-01] MEDS: methylPREDNISolone sod succ 125 mg/2 mL INJ IVP (21:57)
[2024-10-01] MEDS: levofloxacin-dextrose 5 % 750 MG/150 ML PREMIX 100 MG IV (21:57)
--- NOTE | 2024-10-01 22:09 | P.HP_ITS ---
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 Concurrent chemoradiation with CarboTaxol May 07, 202001/20 to 06/05/2023 Imfinzi July 01, 2023 to October 2023. Disease progression July 2024. Currently on Taxotere Presenting to the hospital worsening of shortness of breath. Patient is stating that he has not noticed any fever, nausea, vomiting but endorsing diarrhea. His last chemotherapy session was 2 weeks ago. Patient is stating that on Thursday he is about to start his full session of radiotherapy secondary to progression of his cancer right lower lung no evidence of intra-abdominal pathology, no evidence of metastatic disease in abdomen or pelvis. Has been experiencing right-sided rib pain secondary to progression of cancer. Currently lives with his friend, not on oxygen dependent, quit smoking 2022, no active new chest pain on left side stating that he he gets right-sided pain which is old. Workup in the ER revealed mild leukocytosis patient has been on steroids, he is afebrile, requiring 2 L of oxygen, he will need oxygen evaluation before discharge, X-ray consistent with underlying lung cancer now, I am requesting procalcitonin, respiratory panel is negative Review of Systems 2 Const: Denies: fever(s) Eyes: Denies: change in vision ENMT: Denies: throat pain Card: Reports: chest pain Resp: Reports: dyspnea GI: Reports: GI cramping Medications/Allergies Home Medications Medication Instructions Recorded Confirmed Last Taken Type aspirin 81 mg tablet,delayed 81 mg PO DAILY 04/29/23 09/26/24 07/31/24 History release (Adult Low Dose Aspirin) metoprolol tartrate 25 mg tablet 12.5 mg (1/2 x 25 mg) PO BID #30 12/30/23 09/26/24 07/31/24 Rx tabs budesonide-formoterol HFA 160 2 puff inhalation BID #18 grams 01/28/24 09/26/24 07/31/24 Rx mcg-4.5 mcg/actuation aerosol inhaler (Symbicort) ondansetron HCl 4 mg tablet 4 mg PO Q8H #30 tabs 01/28/24 09/26/24 07/31/24 Rx tizanidine 4 mg tablet 4 mg PO Q8H PRN muscle spasticity 05/16/24 09/26/24 07/31/24 Rx #30 tabs lorazepam 1 mg tablet 0.5 - 1 mg (0.5 - 1 x 1 mg) PO Q6H 06/24/24 09/26/24 07/31/24 Rx PRN Severe Nausea #30 tabs lidocaine-prilocaine 2.5 %-2.5 % 1 applic topical .COMPLEX port 07/09/24 09/26/24 07/31/24 Rx topical cream pain #30 grams albuterol sulfate 90 mcg/actuation 2 puff inhalation Q6H PRN 08/09/24 09/26/24 Unknown Rx aerosol inhaler shortness of breath or wheezing #6.7 grams famotidine 20 mg tablet 20 mg PO BID #60 tabs 08/10/24 09/26/24 Unknown Rx dexamethasone 4 mg tablet 8 mg (2 x 4 mg) PO .COMPLEX #60 08/22/24 09/26/24 Unknown Rx tabs levofloxacin 750 mg tablet 750 mg PO DAILY 7 days #7 tabs 09/19/24 09/26/24 Unknown Rx polyethylene glycol 3350 17 17 g PO DAILY #119 grams 09/19/24 09/26/24 Unknown Rx gram/dose oral powder (Miralax) oxycodone-acetaminophen 10 mg-325 1 tab PO Q8H PRN pain 30 days #60 09/21/24 09/26/24 Unknown Rx mg tablet (Percocet) tabs apixaban 5 mg tablet (Eliquis) 5 mg PO BID #60 tabs 09/26/24 09/26/24 Unknown Rx clopidogrel 75 mg tablet 75 mg PO DAILY #90 tabs 09/26/24 09/26/24 Unknown Rx escitalopram oxalate 10 mg tablet 10 mg PO DAILY #30 tabs 09/26/24 09/26/24 Unknown Rx morphine 60 mg tablet,extended 60 mg PO Q12H 30 days #60 tabs 09/26/24 09/26/24 Unknown Rx release Allergies Allergy/AdvReac Type Severity Reaction Status Date / Time Penicillins Allergy Unknown ALGY-Swell Verified 09/26/24 09:07 Lip/Tongue/Throat PFSH Acute 2 PFSH: Medical History (Updated 10/01/24 @ 22:49 by Navjot Turcios MD) Opioid-induced constipation Pulmonary embolism Spinal stenosis Port-A-Cath in place but then had removed Compression fracture of T7 vertebra Cavitary lesion of lung Constipation Cancer related pain Non-small cell lung cancer Immunosuppressed due to chemotherapy Drug or medicinal substance causing adverse effect in therapeutic use Antineoplastic chemotherapy induced anemia Chemotherapy-induced vomiting Secondary malignant neoplasm of mediastinum Chemotherapy management, encounter for Malignant neoplasm of overlapping sites of right lung Lung cancer metastatic to bone GI (gastrointestinal bleed) Mass of right lung Bilateral direct inguinal hernia CAD (coronary artery disease) Tobacco abuse PAD (peripheral artery disease) Erectile 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 COPD (chronic obstructive pulmonary disease) Hyperlipidemia Surgical History Status post peripheral artery angioplasty with insertion of stent History of angioplasty of peripheral vessel History of right shoulder replacement History of chest tube placement History of laparoscopic cholecystectomy Family History Father Diabetes Brother , AGE 60 CAD (coronary artery disease) Myocardial infarction Mother Diabetes Grandfather Diabetes MATERNAL Grandmother Diabetes MATERNAL Social History Smoking and tobacco/nicotine status: former use of tobacco/nicotine Quit status (tobacco/nicotine): has quit using Year quit tobacco: 2022 Former quit date comment: has had no cigarette tobacco for 10 days/smoked for 50 years Alcohol intake: former Substance/Drug Use: current Substance/Drug use frequency: few times a week Household members: none Marital status: Number of children: 1 service: No 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 kings needs: No Vitals/I&O/Wt Last Vital Signs Temp 97.9 F 10/01/24 18:35 Pulse 100 10/01/24 20:51 Resp 20 H 10/01/24 20:51 BP 125/74 10/01/24 20:50 Pulse Ox 94 10/01/24 20:51 O2 Del Method Nasal Cannula 10/01/24 20:51 O2 Flow Rate 2 10/01/24 20:51 10/01/24 10/01/24 10/01/24 06:59 14:59 22:59 Intake Total 0 / 0 Balance 0 / 0 Weight last 48 hrs Weight 70.76 kg Physical Exam 2 Narrative: Pleasant cooperative male Currently on 2 L nasal cannula Mild rhonchi No active wheezing No active respiratory distress Pleuritic right-sided pain S1, S2 Euvolemic Abdomen soft GCS 15 EOMI, PERRLA Abdomen soft Lower extremity no edema Data 10/01/24 19:38 10/01/24 19:38 Micro: Microbiology 10/01/24 19:23 Blood Culture - Preliminary Blood SPECIMEN COLLECTED 10/01/24 19:38 Blood Culture - Preliminary Blood SPECIMEN COLLECTED A&P Assessment and plan (1) Compression fracture of T7 vertebra: (2) Acute hypoxemic respiratory failure: (3) Hypotension: (4) Sinus tachycardia: Plan Moderately differentiated squamous cell carcinoma Chemotherapy 2 weeks ago About to start/on radiotherapy secondary to progression of cancer Acute hypoxia likely related underlying cancer Patient is already on Eliquis I would not do thromboembolic screening study Patient currently requiring 2 L No active respiratory distress Respiratory panel negative I will continue Levaquin Check procalcitonin mild leukocytosis could be due to the use of steroids Budesonide and DuoNeb treatment for now Opioid-induced constipation: Continue bowel regimen Full code History of peripheral arterial disease and coronary disease continue Plavix along Eliquis No active complaints Right-sided pleuritic pain related to underlying cancer progression, Cardiac diet Chronic anemia: Stable Patient lives with his friend Quit smoking Request home oxygen evaluation in the morning and likely then patient could be discharged home Attestations 2 Medical Necessity Statement*: Likely will be discharged in next 24 to 48 hours Diagnoses Compression fracture of T7 vertebra S22.060A Acute hypoxemic respiratory failure J96.01 Hypotension I95.9 Sinus tachycardia R00.0
[2024-10-02] VITALS (36 sets, daily range): BP systolic 94–125; BP diastolic 35–76; PULSE 70–115; RESP 12–24; O2SAT 85–94
[2024-10-02] MEDS: morphine ER (12 HR) 30 mg tablet 60 MG PO (00:16)
[2024-10-02 05:31] LABS: Basophils % 0.1 %; Lymphocytes # 0.2 10^3/uL (0.8-4.8); Lymphocytes % 1.7 %; Mean Corpuscular HGB Conc 29.7 g/dL (30-55); Mean Corpuscular Hemoglobin 30.3 pg (27-33); Mean Corpuscular Volume 102.1 fl (82-101); Mean Platelet Volume 8.8 fL (7.4-10.4); Monocytes # 0.1 10^3/uL (0.2-0.9); Monocytes % 0.5 %; Neutrophils # 9.13 10^3/uL (1.8-7.7); Neutrophils % 97.3 %; Nucleated Red Blood Cells % 0 %; Platelet Count 347 10^3/cmm (157-399); Red Blood Count 3.33 10^6/uL (3.85-5.65); Red Cell Distribution Width 15.3 % (12.1-15.1); White Blood Count 9.39 10^3/uL (3.29-11.43)
[2024-10-02 05:59] LABS: Anion Gap 16.1 (5-19); Blood Urea Nitrogen 14 mg/dL (8-23); Calcium 8.4 mg/dL (8.5-10.5); Carbon Dioxide 23 mmol/L (22-29); Chloride 100 mmol/L (98-107); Creatinine Clr Calc Pharmacy 90.9806; Glomerular Filtration Rate 111.5 mL/min (90-130); Glucose 128 mg/dL (65-115); Osmolality Calculated 280 mOsm/kg (285-295); Phosphorus 3.8 mg/dL (2.5-4.5); Potassium 5.1 mmol/L (3.5-5.1); Sodium 134 mmol/L (136-145)
[2024-10-02] MEDS: budesonide 0.5 mg/2 mL Neb INHALATION (08:34)
[2024-10-02] MEDS: ipratropium-albuterol 3 mL Neb INHALATION (08:34)
[2024-10-02] MEDS: metoprolol tartrate 25 mg Tablet 12.5 MG PO (09:28)
[2024-10-02] MEDS: clopidogrel 75 mg Tablet PO (09:28)
[2024-10-02] MEDS: apixaban 5 mg Tablet PO (09:28)
[2024-10-02] MEDS: sennosides-docusate Tablet 1 TAB PO (09:28)
--- NOTE | 2024-10-02 09:56 | PM.DCS ---
Discharge Providers Date of Admission: 10/01/24 22:41 Date of Discharge: October 02, 2024 Attending Provider at Admission: Navjot Turcios MD Attending Provider at Discharge: Troy Santa MD Primary Care Provider: Liya Huerta MD Diagnoses at Discharge Discharge Diagnosis (1) Compression fracture of T7 vertebra: Status: Acute (2) Acute hypoxemic respiratory failure: Status: Acute (3) Hypotension: Status: Acute (4) Sinus tachycardia: Status: Acute Reason for Visit Reason for Visit: dizzy n/ Sob Hospital Course Hospital Course Karthik Gordon is a 69 year old male with history of coronary disease, chronic anticoagulation with Eliquis, COPD, not oxygen dependent, peripheral arterial disease, invasive moderately differentiated squamous cell carcinoma with recent disease progression on Taxotere who presented with shortness of breath. He was initially found to be hypoxic and with soft blood pressure. He was treated with IV fluids. Blood pressure improved. He had transient hypoxia which resolved. He completed a 6-minute walk test which did not reveal need for oxygen. He was discharged home in stable condition. He is to follow-up with his outpatient providers within 1 week. Physical Exam Narrative: General: Patient is awake and alert. No acute distress. Head: Normocephalic. Atraumatic. EOM intact. Neck: No JVD. Cardiovascular: RRR. No gallops. No murmurs. Lungs: Clear to auscultation, no use of accessory muscles, no crackles or wheezes. Skin: No jaundice. No rashes. Abdomen: Normal bowel sounds, abdomen soft and nontender. Genito Urinary: Genital exam not performed since complaints not related. Rectal: Rectal exam not performed since no symptoms indicated blood loss. Extremities: No cyanosis or clubbing. Musculoskeletal: No swollen or erythematous joints. Neurological: Moves all 4 extremities. No myoclonus. Discharge Data Studies Completed and Pending Completed Studies During Hospitalization Category Date Time Status XR chest 1V portable [id number] Stat Exams 10/01/24 19:13 Completed Pending at discharge Category Date Time Status Blood Culture Stat Lab 10/01/24 19:23 Results Sputum Culture and Gram Stain Stat Lab 10/01/24 19:13 Uncollected Radiology Impressions Chest X-Ray 10/01/24 19:13 IMPRESSION: As above. Laboratory Results WBC 9.39 10^3/uL (3.29-11.43) 10/02/24 04:30 RBC 3.33 10^6/uL (3.85-5.65) L 10/02/24 04:30 Hgb 10.10 g/dL (11.27-16.99) L 10/02/24 04:30 Hct 34.0 % (37-53) L 10/02/24 04:30 MCV 102.1 fl (82-101) H 10/02/24 04:30 MCH 30.3 pg (27-33) 10/02/24 04:30 MCHC 29.7 g/dL (30-55) L 10/02/24 04:30 RDW 15.3 % (12.1-15.1) H 10/02/24 04:30 Plt Count 347 10^3/cmm (157-399) 10/02/24 04:30 MPV 8.8 fL (7.4-10.4) 10/02/24 04:30 Neut % (Auto) 97.3 % 10/02/24 04:30 Lymph % (Auto) 1.7 % 10/02/24 04:30 [place] % (Auto) 0.5 % 10/02/24 04:30 Eos % (Auto) 0.0 % 10/02/24 04:30 Baso % (Auto) 0.1 % 10/02/24 04:30 Neut # (Auto) 9.13 10^3/uL (1.8-7.7) H 10/02/24 04:30 Lymph # (Auto) 0.2 10^3/uL (0.8-4.8) L 10/02/24 04:30 [place] # (Auto) 0.1 10^3/uL (0.2-0.9) L 10/02/24 04:30 Eos # (Auto) 0.0 10^3/uL (0.0-0.8) 10/02/24 04:30 Baso # (Auto) 0.0 10^3/uL (0.0-0.1) 10/02/24 04:30 Nucleated RBC % (auto) 0 % 10/02/24 04:30 Nucleated RBCs # 0.0 /100WBC 10/02/24 04:30 Sodium 134 mmol/L (136-145) L 10/02/24 04:30 Potassium 5.1 mmol/L (3.5-5.1) 10/02/24 04:30 Chloride 100 mmol/L (98-107) 10/02/24 04:30 Carbon Dioxide 23 mmol/L (22-29) 10/02/24 04:30 Anion Gap 16.1 (5-19) 10/02/24 04:30 BUN 14 mg/dL (8-23) 10/02/24 04:30 Creatinine 0.7 mg/dL (0.7-1.2) 10/02/24 04:30 GFR Calculation 111.5 mL/min (90-130) 10/02/24 04:30 Glucose 128 mg/dL (65-115) H 10/02/24 04:30 Calculated Osmolality 280 mOsm/kg (285-295) L 10/02/24 04:30 Lactic Acid 1.7 mmol/L (0.5-2.2) 10/01/24 19:38 Calcium 8.4 mg/dL (8.5-10.5) L 10/02/24 04:30 Phosphorus 3.8 mg/dL (2.5-4.5) 10/02/24 04:30 Magnesium 2.0 mg/dL (1.7-2.3) 10/02/24 04:30 Total Bilirubin 0.8 mg/dL (0.15-1.2) 10/01/24 19:38 AST 13 U/L (0-40) 10/01/24 19:38 ALT 11 U/L (0-41) 10/01/24 19:38 Alkaline Phosphatase 167 U/L (40-130) H 10/01/24 19:38 C-Reactive Protein 48.0 mg/L (0.0-4.9) H 10/02/24 04:30 NT-Pro-B Natriuret Pep 190 pg/mL (0-125) H 10/01/24 19:38 Total Protein 5.9 g/dL (6.6-8.7) L 10/01/24 19:38 Albumin 3.3 g/dL (3.5-5.2) L 10/01/24 19:38 Globulin 2.6 g/dL (1.3-4.6) 10/01/24 19:38 Procalcitonin 0.10 ng/mL (0-0.5) 10/01/24 19:38 Coronavirus (PCR) Negative (Negative) 10/01/24 18:45 Influenza A (PCR) Negative (Negative) 10/01/24 18:45 Influenza Type B (PCR) Negative (Negative) 10/01/24 18:45 RSV (PCR) Negative (Negative) 10/01/24 18:45 Vitals Last Vital Signs Temp 97.9 F 10/01/24 18:35 Pulse 89 10/02/24 08:48 Resp 20 H 10/02/24 08:41 BP 108/59 10/02/24 08:00 Pulse Ox 94 10/02/24 08:42 O2 Del Method Room Air 10/02/24 08:41 O2 Flow Rate 3 10/02/24 00:44 Discharge Plan Discharge Patient Disposition: Home Condition: Stable Prescriptions: Continued aspirin [Adult Low Dose Aspirin] 81 mg tablet,delayed release (DR/EC) 81 mg PO DAILY Patient Comments: patient stated in addition to Plavix dexamethasone 4 mg tablet 8 mg PO .COMPLEX Qty: 60 3RF Rx Instructions: 2 tabs BID day before and day after taxotere metoprolol tartrate 25 mg tablet 12.5 mg PO BID Qty: 30 0RF ondansetron HCl 4 mg tablet 4 mg PO Q8H Qty: 30 1RF Symbicort 160-4.5 mcg/actuation HFA aerosol inhaler 2 puff INHALATION BID Qty: 18 1RF famotidine 20 mg tablet 20 mg PO BID Qty: 60 0RF morphine 60 mg tablet extended release 60 mg PO Q12H 30 Days Qty: 60 0RF escitalopram oxalate 10 mg tablet 10 mg PO DAILY Qty: 30 2RF Rx Instructions: Take 1/2 tablet in evening daily for 2 weeks and then increase to 1 tablet. clopidogrel 75 mg tablet 75 mg PO DAILY Qty: 90 3RF Hold Instructions: Resume on 10/24/22. Eliquis 5 mg tablet 5 mg PO BID Qty: 60 0RF Hold Instructions: Resume on 07/07/24. Rx Instructions: TAKE 1 TABLET BY MOUTH TWICE DAILY tizanidine 4 mg tablet 4 mg PO Q8H PRN (Reason: muscle spasticity) Qty: 30 0RF lorazepam 1 mg tablet 0.5 - 1 mg PO Q6H PRN (Reason: Severe Nausea) Qty: 30 3RF lidocaine-prilocaine 2.5-2.5 % cream 1 applic topical .COMPLEX Qty: 30 0RF Rx Instructions: 30 minutes prior to port access, apply quarter size amount and rub in; cover with saran wrap albuterol sulfate 90 mcg/actuation HFA aerosol inhaler 2 puff INHALATION Q6H PRN (Reason: shortness of breath or wheezing) Qty: 6.7 1RF polyethylene glycol 3350 [Miralax] 17 gram/dose powder 17 g PO DAILY Qty: 119 2RF Rx Instructions: Mix well into any liquid but water levofloxacin 750 mg tablet 750 mg PO DAILY 7 Days Qty: 7 0RF oxycodone-acetaminophen [Percocet] 10-325 mg tablet 1 tab PO Q8H PRN (Reason: pain) 30 Days Qty: 60 0RF Discharge Orders: Discharge Order (Routine); Ordered 10/02/24 Ordered By: Troy Santa Referrals: Liya Huetra MD [Primary Care Provider] - 1-3 days Discharge Diet: Advance as tolerated and Usual diet Discharge Activity: Resume usual activity and Increase activity as tolerated Activity Restrictions/Additional Instructions: 1. Take medications as prescribed. 2. Recommend home pulse ox monitor. 3. Follow-up with providers within 1 week. 4. Return precautions discussed. Discharge Attestations Time Spent in Discharge Care*: greater than 30 min Status at Discharge: Cognitive status at discharge: cognitively intact, Behavioral status at discharge: cooperative, Quality Metrics Clinical Quality Measures [ No reported AMI, CVA or VTE this stay] Coding Level of Care Code Acute Code for Chg Fwd Diagnoses Compression fracture of T7 vertebra S22.060A Acute hypoxemic respiratory failure J96.01 Hypotension I95.9 Sinus tachycardia R00.0
== END 2024-10-02 11:14 | disposition admitted as inpatient to this hospital (09) ==
LOC: ER 22:24 → ER IP 10-02 00:40
PROVIDERS: Emergency Medicine; Internal Medicine; Emergency Provider Emergency Medicine; PCP Family Medicine
DX: J96.01 Acute respiratory failure with hypoxia (principal); J18.9 Pneumonia, unspecified organism; Z11.52 Encounter for screening for COVID-19; Z79.82 Long term (current) use of aspirin; Z79.01 Long term (current) use of anticoagulants; Z87.891 Personal history of nicotine dependence; Z85.118 Personal history of other malignant neoplasm of bronchus and lung; I25.10 Atherosclerotic heart disease of native coronary artery without angina pectoris; J44.9 Chronic obstructive pulmonary disease, unspecified; E78.5 Hyperlipidemia, unspecified
CPT/HCPCS: 36415; 71045; 80048; 80053; 83605; 83735; 83880; 84100; 84145; 85025; 86140; 87040; 87637; 93005; 94640; 94760; 96361; 96365; 96366; 96375; 99285; J1956; J2919; J7030; J7626

== ENCOUNTER 2024-10-24 09:45 | Oncology outpatient (recurring) (ONCR) | payer MEDICARE, SELFPAY ==
[2024-10-03 09:01] LABS: Basophils % 0.1 %; Hematocrit 29.1 % (37-53); Lymphocytes # 0.3 10^3/uL (0.8-4.8); Lymphocytes % 4.2 %; Mean Corpuscular HGB Conc 31.6 g/dL (30-55); Mean Corpuscular Hemoglobin 30.5 pg (27-33); Mean Corpuscular Volume 96.4 fl (82-101); Mean Platelet Volume 8.7 fL (7.4-10.4); Monocytes # 0.6 10^3/uL (0.2-0.9); Monocytes % 7.6 %; Neutrophils % 87.7 %; Nucleated Red Blood Cells % 0 %; Platelet Count 386 10^3/cmm (157-399); Red Blood Count 3.02 10^6/uL (3.85-5.65); Red Cell Distribution Width 15.4 % (12.1-15.1); White Blood Count 7.19 10^3/uL (3.29-11.43)
[2024-10-03 09:19] LABS: Alanine Aminotransferase 10 U/L (0-41); Albumin Level 3.5 g/dL (3.5-5.2); Alkaline Phosphatase 131 U/L (40-130); Aspartate Amino Transferase 10 U/L (0-40); Blood Urea Nitrogen 28 mg/dL (8-23); Calcium 9.1 mg/dL (8.5-10.5); Carbon Dioxide 25 mmol/L (22-29); Chloride 98 mmol/L (98-107); Creatinine Clr Calc Pharmacy 89.4372; Globulin 2.5 g/dL (1.3-4.6); Glomerular Filtration Rate 95.6 mL/min (90-130); Glucose 124 mg/dL (65-115); Osmolality Calculated 285 mOsm/kg (285-295); Sodium 134 mmol/L (136-145); Total Bilirubin 0.3 mg/dL (0.15-1.2)
[2024-10-03 09:21] LABS: Anion Gap 15.3 (5-19); Potassium 4.3 mmol/L (3.5-5.1)
[2024-10-10 10:55] LABS: Basophils % 0.3 %; Eosinophils # 0.2 10^3/uL (0.0-0.8); Eosinophils % 2.3 %; Hematocrit 33.2 % (37-53); Lymphocytes # 0.4 10^3/uL (0.8-4.8); Lymphocytes % 5.2 %; Mean Corpuscular Hemoglobin 30.1 pg (27-33); Mean Corpuscular Volume 97.1 fl (82-101); Mean Platelet Volume 8.7 fL (7.4-10.4); Monocytes # 0.7 10^3/uL (0.2-0.9); Monocytes % 8.3 %; Neutrophils # 6.54 10^3/uL (1.8-7.7); Neutrophils % 83.5 %; Nucleated Red Blood Cells % 0 %; Platelet Count 282 10^3/cmm (157-399); Red Blood Count 3.42 10^6/uL (3.85-5.65); Red Cell Distribution Width 14.7 % (12.1-15.1); White Blood Count 7.83 10^3/uL (3.29-11.43)
[2024-10-10 11:14] LABS: Alanine Aminotransferase 9 U/L (0-41); Albumin Level 3.3 g/dL (3.5-5.2); Alkaline Phosphatase 159 U/L (40-130); Blood Urea Nitrogen 12 mg/dL (8-23); Calcium 8.8 mg/dL (8.5-10.5); Carbon Dioxide 29 mmol/L (22-29); Chloride 95 mmol/L (98-107); Creatinine Clr Calc Pharmacy 89.4372; Globulin 2.7 g/dL (1.3-4.6); Glomerular Filtration Rate 133.2 mL/min (90-130); Glucose 123 mg/dL (65-115); Osmolality Calculated 277 mOsm/kg (285-295); Sodium 133 mmol/L (136-145); Total Bilirubin 0.5 mg/dL (0.15-1.2)
[2024-10-10 11:15] LABS: Anion Gap 13.8 (5-19); Aspartate Amino Transferase 15 U/L (0-40); Potassium 4.8 mmol/L (3.5-5.1)
[2024-10-11] MEDS: sodium chloride 0.9% 500 ML IV (09:56)
--- NOTE | 2024-10-11 10:29 | ONCRAD TMN_ITS ---
Radiation Oncology Weekly Treatment Management Patient: Karthik Gordon MR#: [id number] : 1955 Attending Physician: Dr. Ruth Abbasi Date of Service: 10/11/2024 Fractions: 2 out of 10 Referring Physician(s) : Maynor Kirkpatrick M.D. Diagnosis: C34.10 - Malignant neoplasm of upper lobe, unspecified bronchus or lung, Diagnosed 01/23/2023 (Active) Stage IIIC, T3, N3, M0 Radiotherapy to date: Course: Re Tx Lung 2024, Treatment Site: RT Lung 30Gy, Ref. ID: [id number], Energy: 6X, Dose/Fx (cGy): 300, #Fx: , Dose Correction (cGy): 0, Total Dose Delivered (cGy): 600, Start Date: 10/10/2024, Elapsed Days: 1 Reason for visit: The patient is being seen today as part of their regularly scheduled weekly on treatment visits to assess for acute toxicities from radiotherapy. Review of Systems: Patient's blood pressure was low today at 89/60 while his pulse was at 123. His pulse ox was down to 92%. He says he feels poorly when he noticed his blood pressures dropped. He thought that he was placed on Lasix but there is questions either whether he has been taking Lasix or not. He has had some lower extremity edema from his malnourishment. Vital Signs: Performed on 10/11/2024 9:25 AM BMI - 21.228 kg/m2, Height - 71 in, Weight - 152.2 lbs, Temperature - 97.3 f, Pulse - 124 /min (high), Respiration - 18 /min, O2 Sat - 92 % (low), Pain - 6, Fatigue - 0 and BP - 89/ 60 mm(hg)(low). Physical Exam: On exam today he is pale. His skin is warm and dry. Imaging: Radiation therapy imaging related to accurate target localization (i.e. KV, MV and CBCT) was reviewed. Appropriate changes, if any, were made to ensure treatment accuracy. Plan: Will go ahead and give him some IV fluids today. He will be calling back to give us a list of the medications he is currently taking. We did talk about how he does have the lower extremity swelling but that when you take a diuretic it just causes dehydration to try and pull that fluid out of the tissues into your system. We talked about how his lower extremity swelling is most likely due to his malnourishment since he has not been able to eat or drink very well. This point we will give him a little bit of fluid today and see if he does not feel little better. He will call back with his medication list. Signed by: Dr. Ruth Abbasi 10/11/2024 10:27:36 AM
[2024-10-11 11:10] VITALS: BP 124/74; PULSE 112; RESP 20; TEMP 36.3; O2SAT 94
--- NOTE | 2024-10-18 09:56 | ONCRAD TMN_ITS ---
Radiation Oncology Weekly Treatment Management Patient: Heidi Hudson MR#: [id number] : 1955> Attending Physician: Dr. Ruth Abbasi Date of Service: 10/18/2024 Fractions: 7 out of 10 Referring Physician(s) : Maynor Kirkpatrick M.D. Diagnosis: C34.10 - Malignant neoplasm of upper lobe, unspecified bronchus or lung, Diagnosed 01/23/2023 (Active) Stage IIIC, T3, N3, M0 Radiotherapy to date: Course: Re Tx Lung 2024, Treatment Site: RT Lung 30Gy, Ref. ID: [id number], Energy: 6X, Dose/Fx (cGy): 300, #Fx: 7 / 10, Dose Correction (cGy): 0, Total Dose Delivered (cGy): 2,100, Start Date: 10/10/2024, Elapsed Days: 8 Reason for visit: The patient is being seen today as part of their regularly scheduled weekly on treatment visits to assess for acute toxicities from radiotherapy. Review of Systems: Patient feeling substantially better today. Vital Signs: Performed on 10/18/2024 9:25 AM BMI - 20.502 kg/m2, Height - 71 in, Weight - 147 lbs, Temperature - 98.7 f, Pulse - 99 /min, Respiration - 17 /min, O2 Sat - 95 % (low), Pain - 0, Fatigue - 0 and BP - 150/ 85 mm(hg)(high/). Physical Exam: No changes on exam Imaging: Radiation therapy imaging related to accurate target localization (i.e. KV, MV and CBCT) was reviewed. Appropriate changes, if any, were made to ensure treatment accuracy. Plan: Will continue with his treatments as planned Signed by: Dr. Ruth Abbasi 10/18/2024 9:55:25 AM
[2024-10-24 10:09] LABS: Basophils % 0.3 %; Eosinophils # 0.1 10^3/uL (0.0-0.8); Eosinophils % 3.6 %; Lymphocytes # 0.4 10^3/uL (0.8-4.8); Lymphocytes % 10.7 %; Mean Corpuscular HGB Conc 30.3 g/dL (30-55); Mean Corpuscular Hemoglobin 29.5 pg (27-33); Mean Corpuscular Volume 97.4 fl (82-101); Mean Platelet Volume 8.5 fL (7.4-10.4); Monocytes # 0.3 10^3/uL (0.2-0.9); Monocytes % 8.2 %; Neutrophils # 2.82 10^3/uL (1.8-7.7); Neutrophils % 76.9 %; Nucleated Red Blood Cells % 0 %; Platelet Count 294 10^3/cmm (157-399); Red Blood Count 3.49 10^6/uL (3.85-5.65); Red Cell Distribution Width 13.8 % (12.1-15.1); White Blood Count 3.66 10^3/uL (3.29-11.43)
[2024-10-24 10:25] LABS: Alanine Aminotransferase 7 U/L (0-41); Albumin Level 3.3 g/dL (3.5-5.2); Alkaline Phosphatase 132 U/L (40-130); Anion Gap 10.8 (5-19); Aspartate Amino Transferase 11 U/L (0-40); Blood Urea Nitrogen 12 mg/dL (8-23); Calcium 8.3 mg/dL (8.5-10.5); Carbon Dioxide 27 mmol/L (22-29); Chloride 106 mmol/L (98-107); Creatinine Clr Calc Pharmacy 89.4372; Globulin 2.3 g/dL (1.3-4.6); Glomerular Filtration Rate 133.2 mL/min (90-130); Glucose 126 mg/dL (65-115); Osmolality Calculated 291 mOsm/kg (285-295); Potassium 3.8 mmol/L (3.5-5.1); Sodium 140 mmol/L (136-145); Total Bilirubin 0.3 mg/dL (0.15-1.2); Total Protein 5.6 g/dL (6.6-8.7)
== END 2024-10-24 15:12 | disposition home or self-care (01) ==
PROVIDERS: Internal Medicine Medical Oncology; PCP Family Medicine; Visit Provider Radiology Radiation Oncology
DX: Z53.9 Procedure and treatment not carried out, unspecified reason; Z51.0 Encounter for antineoplastic radiation therapy; C34.81 Malignant neoplasm of overlapping sites of right bronchus and lung
CPT/HCPCS: 36592; 77300; 77301; 77336; 77338; 77386; 80053; 85025; 96360; 99024; 99214; J7040

== ENCOUNTER 2024-10-27 09:34 | Inpatient (IN) | payer MEDICARE, SELFPAY ==
[2024-10-27] VITALS (16 sets, daily range): BP systolic 90–126; BP diastolic 42–92; PULSE 73–168; RESP 18–29; TEMP 36.6–36.8; O2SAT 90–98; BMI 23.7; BMI 19.3
--- NOTE | 2024-10-27 09:37 | XR_ITS ---
WS: [id number] Portable AP upright chest, 10/27/2024 Clinical Data: dyspnea/cough Comparison: Portable chest, 10/01/2024 Findings: The right hilar mass remains the same. There is peripheral stranding extending to the right middle and right lower lobe pleural surfaces. The left lung is clear. No effusions are seen. There is no pneumothorax but there is subcutaneous emphysema of the left chest wall. The pulmonary vascularity is not increased. The aortic arch is tortuous. The diaphragms are flattened. There is a right shoulder arthroplasty. Monitor leads are on the chest wall. XR/XR chest 1V portable [id number] Impression: 1. No change in right hilar mass with probable stranding extending to right ple ural surface. 2. Small amount of left subcutaneous emphysema. 3. Atherosclerosis and hyperinflation.
--- NOTE | 2024-10-27 09:37 | ECG_ITS ---
[facility]: 2024[facility]27 Pat Name: Karthik Gordon Department: Room: Gender: Male Solderer [place]: : 1955 Requested By: Garrett Vergara Order Number: [id number] Patti MD: Jd Justice M.D. Measurements Intervals [place] Rate: 163 P: 0 ME: 0 QRS: 84 QRSD: 91 T: 104 QT: 268 QTc: 441 Interpretive Statements ATRIAL FIBRILLATION WITH RAPID VENTRICULAR RESPONSE NONSPECIFIC ST & T-WAVE ABNORMALITY Compared to ECG 10/27/2024 09:42:23 No significant changes Electronically Signed On 10-29-2024 07:53:57 PLATE DRILLER by Jd Justice M.D. [email or web address]
--- NOTE | 2024-10-27 09:46 | W.ED.ARRPALP ---
HPI - Arrhythmia/Palpitations General: Chief Complaint: COVID symptoms Stated Complaint: flu like symptoms Time Seen by Provider: 10/27/24 09:37 History of Present Illness: 69-year-old male presents to the emergency room with complaints of abdominal discomfort General Flulike symptoms muscle aches and pain. He is also noticing palpitations much worsening weakening over the last few days. Patient has a history of coronary artery disease previous PE lungs CTA moderately deficits differentiated squamous cell. He denies any hemoptysis no vomiting, has had diarrhea also has been very nauseous. Denies any hemoptysis. Related Data Home Medications ?Medication ?Instructions ?Recorded ?Confirmed polyethylene glycol 3350 17 17 g PO DAILY PRN Constipation 10/27/24 10/27/24 gram/dose oral powder (Miralax) Previous Rx's ?Medication ?Instructions ?Recorded albuterol sulfate 90 mcg/actuation 2 puff inhalation Q6H PRN 08/09/24 aerosol inhaler shortness of breath or wheezing #6.7 grams famotidine 20 mg tablet 20 mg PO BID #60 tabs 08/10/24 apixaban 5 mg tablet (Eliquis) 5 mg PO BID #60 tabs 09/26/24 clopidogrel 75 mg tablet 75 mg PO DAILY #90 tabs 09/26/24 escitalopram oxalate 10 mg tablet 10 mg PO DAILY #30 tabs 09/26/24 morphine 60 mg tablet,extended 60 mg PO Q12H 30 days #60 tabs 09/26/24 release lorazepam 1 mg tablet 0.5 - 1 mg (0.5 - 1 x 1 mg) PO Q6H 10/03/24 PRN severe nausea #30 tabs ondansetron HCl 4 mg tablet 4 mg PO Q6H PRN nausea and 10/03/24 vomiting #30 tabs prochlorperazine maleate 10 mg 10 mg PO Q4H PRN mild nausea #30 10/03/24 tablet (Compazine) tabs furosemide 20 mg tablet 20 mg PO BID #60 tabs 10/10/24 Portable oxygen concentrator and #1 ea 10/13/24 supplies oxycodone-acetaminophen 10 mg-325 1 tab PO Q8H PRN pain 30 days #60 10/20/24 mg tablet (Percocet) tabs Allergies Allergy/AdvReac Type Severity Reaction Status Date / Time Penicillins Allergy Unknown ALGY-Swell Verified 10/27/24 10:02 Lip/Tongue/Throat Review of Systems Const: Denies: fever(s) or chills Card: Denies: chest pain Resp: Reports: dyspnea, non-productive cough, wheezing and chest congestion GI: Denies: abdominal pain : Denies: dysuria, urinary frequency or urinary urgency Musc: Denies: neck pain or back pain Skin/Breast: Denies: rash PFSH ED PFSH: Medical History Osteoporosis Pneumonia Opioid-induced constipation Pulmonary embolism Spinal stenosis Port-A-Cath in place but then had removed Compression fracture of T7 vertebra Cavitary lesion of lung Constipation Cancer related pain Non-small cell lung cancer Immunosuppressed due to chemotherapy Drug or medicinal substance causing adverse effect in therapeutic use Antineoplastic chemotherapy induced anemia Chemotherapy-induced vomiting Secondary malignant neoplasm of mediastinum Chemotherapy management, encounter for Malignant neoplasm of overlapping sites of right lung Lung cancer metastatic to bone GI (gastrointestinal bleed) Mass of right lung Bilateral direct inguinal hernia CAD (coronary artery disease) Tobacco abuse PAD (peripheral artery disease) Erectile 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 COPD (chronic obstructive pulmonary disease) Hyperlipidemia Surgical History History of back surgery Status post peripheral artery angioplasty with insertion of stent History of angioplasty of peripheral vessel History of right shoulder replacement History of chest tube placement History of laparoscopic cholecystectomy Family History Father Diabetes Brother , AGE 60 CAD (coronary artery disease) Myocardial infarction Mother Diabetes Grandfather Diabetes MATERNAL Grandmother Diabetes MATERNAL Social History Smoking and tobacco/nicotine status: former use of tobacco/nicotine Quit status (tobacco/nicotine): has quit using Year quit tobacco: 2022 Former quit date comment: has had no cigarette tobacco for 10 days/smoked for 50 years Alcohol intake: former Substance/Drug Use: current Substance/Drug use frequency: few times a week Household members: none Marital status: Number of children: 1 service: No 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 kings needs: No Physical Exam Const: GENERAL APPEARANCE: cooperative ORIENTATION/CONSCIOUSNESS: Yes awake, Yes oriented to person, Yes oriented to place and Yes oriented to time HENMT: COMMON NORMALS: normocephalic, atraumatic and hearing grossly normal bilaterally HEAD & SCALP: normocephalic and atraumatic Resp: COMMON NORMALS: normal respiratory effort, No retractions, No use of accessory muscles and clear to auscultation bilaterally AUSCULTATION: clear to auscultation bilaterally Cardio: COMMON NORMALS: No murmurs present (Cardio) RATE: tachycardic RHYTHM: abnormal rhythm irregularly irregular GI: COMMON NORMALS: Soft to palpation and No hepatosplenomegaly present AUSCULTATION: Yes normoactive bowel sounds PALPATION: Yes Soft to palpation, No Tenderness to palpation present (GI), No Guarding due to palpation present (GI) and Yes No hepatosplenomegaly present Extremity: COMMON NORMALS: normal to inspection, capillary refill normal, no clubbing, cyanosis or edema, no calf tenderness and no pedal edema Neuro: SENSORIUM/ORIENTATION: Yes oriented to person, Yes oriented to place and Yes oriented to time Skin: COMMON NORMALS: no rashes or lesions noted GENERAL SKIN EXAM: no rashes or lesions noted Course Vital Signs: Vital signs: Vital Signs Temperature 98.3 F 10/27/24 09:38 Pulse Rate 112 H 10/27/24 13:46 Respiratory Rate 23 H 10/27/24 13:46 Blood Pressure 103/60 10/27/24 13:46 Pulse Oximetry 93 10/27/24 13:46 Oxygen Delivery Me thod Room Air 10/27/24 13:46 MDM - Arrhythmia/Palpitations Medical Decision Making New onset A-fib with RVR, influenza, possible early small bowel obstruction versus gastroenteritis. Rate is controlled at 5 mg on the Cardizem drip. Will admit to hospitalist. Medical Records I reviewed the patient's medical records. Lab Data I reviewed the patient's lab results. 10/27/24 10:15 10/27/24 10:15 Radiology Impressions Chest X-Ray 10/27/24 09:37 Impression: 1. No change in right hilar mass with probable stranding extending to right pleural surface. 2. Small amount of left subcutaneous emphysema. 3. Atherosclerosis and hyperinflation. Abdomen/Pelvis CT 10/27/24 09:51 IMPRESSION: 1. Mild submucosal enhancement of the small bowel with fluid distended small bowel loops suspicious for small bowel enteritis. No evidence of high-grade obstruction. 2. Air and fluid distention of the transverse colon unchanged since 09/23/2024. Decompressed LEFT colon and sigmoid colon. 3. Prior cholecystectomy. 4. Gastritis and duodenitis. 5. Few small nodular opacities in the lung bases may be infectious or inflammatory new from previous. Metastatic disease not excluded considering history Laboratory Results WBC 11.06 10^3/uL (3.29-11.43) 10/27/24 10:15 RBC 4.70 10^6/uL (3.85-5.65) 10/27/24 10:15 Hgb 13.80 g/dL (11.27-16.99) 10/27/24 10:15 Hct 43.5 % (37-53) 10/27/24 10:15 MCV 92.6 fl (82-101) 10/27/24 10:15 MCH 29.4 pg (27-33) 10/27/24 10:15 MCHC 31.7 g/dL (30-55) 10/27/24 10:15 RDW 13.9 % (12.1-15.1) 10/27/24 10:15 Plt Count 336 10^3/cmm (157-399) 10/27/24 10:15 MPV 9.2 fL (7.4-10.4) 10/27/24 10:15 Neut % (Auto) 90.7 % 10/27/24 10:15 Lymph % (Auto) 3.4 % 10/27/24 10:15 Tama % (Auto) 5.2 % 10/27/24 10:15 Eos % (Auto) 0.0 % 10/27/24 10:15 Baso % (Auto) 0.2 % 10/27/24 10:15 Neut # (Auto) 10.04 10^3/uL (1.8-7.7) H 10/27/24 10:15 Lymph # (Auto) 0.4 10^3/uL (0.8-4.8) L 10/27/24 10:15 [place]ama # (Auto) 0.6 10^3/uL (0.2-0.9) 10/27/24 10:15 Eos # (Auto) 0.0 10^3/uL (0.0-0.8) 10/27/24 10:15 Baso # (Auto) 0.0 10^3/uL (0.0-0.1) 10/27/24 10:15 Nucleated RBC % (auto) 0 % 10/27/24 10:15 Nucleated RBCs # 0.0 /100WBC 10/27/24 10:15 Sodium 132 mmol/L (136-145) L 10/27/24 10:15 Potassium 3.5 mmol/L (3.5-5.1) 10/27/24 10:15 Chloride 93 mmol/L (98-107) L 10/27/24 10:15 Carbon Dioxide 23 mmol/L (22-29) 10/27/24 10:15 Anion Gap 19.5 (5-19) H 10/27/24 10:15 BUN 30 mg/dL (8-23) H 10/27/24 10:15 Creatinine 0.9 mg/dL (0.7-1.2) 10/27/24 10:15 GFR Calculation 83.4 mL/min (90-130) L 10/27/24 10:15 Glucose 120 mg/dL (65-115) H 10/27/24 10:15 Calculated Osmolality 281 mOsm/kg (285-295) L 10/27/24 10:15 Calcium 8.6 mg/dL (8.5-10.5) 10/27/24 10:15 Total Bilirubin 0.5 mg/dL (0.15-1.2) 10/27/24 10:15 AST 27 U/L (0-40) 10/27/24 10:15 ALT 11 U/L (0-41) 10/27/24 10:15 Alkaline Phosphatase 138 U/L (40-130) H 10/27/24 10:15 Total Protein 6.7 g/dL (6.6-8.7) 10/27/24 10:15 Albumin 3.3 g/dL (3.5-5.2) L 10/27/24 10:15 Globulin 3.4 g/dL (1.3-4.6) 10/27/24 10:15 TSH 0.83 uIU/mL (0.27-4.20) 10/27/24 10:15 Influenza A (PCR) Positive (Negative) 10/27/24 10:15 Influenza Type B (PCR) Negative (Negative) 10/27/24 10:15 RSV (PCR) Negative (Negative) 10/27/24 10:15 SARS-CoV-2 (PCR) Negative (Negative) 10/27/24 10:15 All radiology interpretation(s) finalized by discharge Discharge Plan Discharge Patient Disposition: Placed in Observation Admit Provider: Larry Armendariz Clinical Impression: Atrial fibrillation with RVR, Malignant neoplasm of overlapping sites of right lung, Influenza Condition: Stable Coding Level of Care Code 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
--- NOTE | 2024-10-27 09:51 | CT_ITS ---
WS: [id number] CT ABDOMEN PELVIS TECHNIQUE: Contrast-enhanced CT of the abdomen and pelvis with coronal and sagittal reformatted images. CLINICAL INFORMATION: abd pain COMPARISON: 09/23/2024 DLP: 342.[address] scans at [facility] use at least one of these dose optimization techniques: automated exposure control; mA and/or kV adjustment per patient size (includes targeted exams where dose is matched to clinical indication); or iterative reconstruction. FINDINGS: A few small patchy nodular opacities in the RIGHT greater than LEFT lower lobes. Diffuse fatty infiltration of the liver. Cholecystectomy clips. Normal portal vein and splenic vein. Fatty atrophy of the pancreas. Splenic artery calcifications. Splenic granulomas. Gastric mucosal enhancement compatible with gastritis and duodenitis. Normal caliber abdominal aorta. Dense vascular calcification. Adrenal glands are normal. Bilateral renal cysts. No hydronephrosis. Small bladder cystocele. Colon is decompressed. Sigmoid colon and LEFT colon are decompressed. Gaseous distention of the transverse colon with a small amount of fluid. Enhancing small bowel loops in the LEFT upper quadrant pelvis and RIGHT upper quadrant can be seen with small bowel enteritis. Mild fluid distention of small bowel loops. CT/CT abdomen pelvis w con* [id number] IMPRESSION: 1. Mild submucosal enhancement of the small bowel with fluid distended small b owel loops suspicious for small bowel enteritis. No evidence of high-grade obst ruction. 2. Air and fluid distention of the transverse colon unchanged since 09/23/2024. Decompressed LEFT colon and sigmoid colon. 3. Prior cholecystectomy. 4. Gastritis and duodenitis. 5. Few small nodular opacities in the lung bases may be infectious or inflamma tory new from previous. Metastatic disease not excluded considering history
[2024-10-27] MEDS: dilTIAZem 100 MG in sodium chloride 0.9% (add-van) 100 ML IV (10:11)
[2024-10-27] MEDS: dilTIAZem 5 mg/mL SDV 5 mL 10 MG IVP (10:11)
[2024-10-27 10:28] LABS: Basophils % 0.2 %; Hematocrit 43.5 % (37-53); Lymphocytes # 0.4 10^3/uL (0.8-4.8); Lymphocytes % 3.4 %; Mean Corpuscular HGB Conc 31.7 g/dL (30-55); Mean Corpuscular Hemoglobin 29.4 pg (27-33); Mean Corpuscular Volume 92.6 fl (82-101); Mean Platelet Volume 9.2 fL (7.4-10.4); Monocytes # 0.6 10^3/uL (0.2-0.9); Monocytes % 5.2 %; Neutrophils # 10.04 10^3/uL (1.8-7.7); Neutrophils % 90.7 %; Nucleated Red Blood Cells % 0 %; Platelet Count 336 10^3/cmm (157-399); Red Cell Distribution Width 13.9 % (12.1-15.1); White Blood Count 11.06 10^3/uL (3.29-11.43)
[2024-10-27 10:43] LABS: Alanine Aminotransferase 11 U/L (0-41); Albumin Level 3.3 g/dL (3.5-5.2); Alkaline Phosphatase 138 U/L (40-130); Anion Gap 19.5 (5-19); Aspartate Amino Transferase 27 U/L (0-40); Blood Urea Nitrogen 30 mg/dL (8-23); Calcium 8.6 mg/dL (8.5-10.5); Carbon Dioxide 23 mmol/L (22-29); Chloride 93 mmol/L (98-107); Creatinine Clr Calc Pharmacy 82.1251; Globulin 3.4 g/dL (1.3-4.6); Glomerular Filtration Rate 83.4 mL/min (90-130); Glucose 120 mg/dL (65-115); Osmolality Calculated 281 mOsm/kg (285-295); Potassium 3.5 mmol/L (3.5-5.1); Sodium 132 mmol/L (136-145); Total Bilirubin 0.5 mg/dL (0.15-1.2); Total Protein 6.7 g/dL (6.6-8.7)
[2024-10-27] MEDS: HYDROMORPHONE HCL 0.5 MG/0.5 ML INJ IVP (10:55)
[2024-10-27 11:01] LABS: Thyroid Stimulating Hormone 0.83 uIU/mL (0.27-4.20)
[2024-10-27] MEDS: iohexol 350 mg/mL 500 mL Btl (per mL) IV (11:08)
[2024-10-27 11:12] LABS: Influenza A POSITIVE (Negative); Influenza B NEGATIVE (Negative); Respiratory Syncytial Virus Ce NEGATIVE (Negative); SARS-CoV-2 PCR NEGATIVE (Negative)
--- NOTE | 2024-10-27 11:37 | PC.PHAR ---
Pt states his friend at home takes care of his medications. He also states several of his medications have changed in the last 2 weeks. Specifically Eliquis increased to 10mg bid. He said the best bet would be to talk to the pharmacy. Phoned [facility]AVE[facility] Moncada, who verified meds and faxed a copy of current medications. Eliquis is 5mg bid.
[2024-10-27] MEDS: sodium chloride 0.9% 1,000 ML 999 ML IV (12:27)
--- NOTE | 2024-10-27 12:29 | ECG_ITS ---
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 Measurements Intervals [place] Rate: 98 P: 79 WI: 173 QRS: 78 QRSD: 92 T: 85 QT: 362 QTc: 464 Interpretive Statements SINUS RHYTHM WITH OCCASIONAL VENTRICULAR PREMATURE COMPLEXES RIGHT ATRIAL ENLARGEMENT [0.3mV P-WAVE] NONSPECIFIC T-WAVE ABNORMALITY Compared to ECG 10/27/2024 09:57:34 Ventricular premature complex(es) now present Atrial abnormality now present Atrial fibrillation no longer present T-wave abnormality still present Electronically Signed On 10-29-2024 07:52:16 EGG PASTEURIZER by Jd Justice M.D. [email or web address] [id number]
--- NOTE | 2024-10-27 14:28 | PM.HP ---
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 Currently patient is alert oriented x 3, following all commands, he is complaint was is that he has been having diarrhea for the last 24 hours, also lower abdominal pain, no nausea, no vomiting does have decreased appetite, no fevers, no chills his last treatment for radiation was on Thursday. Denies any bloody or black stools, no hematemesis, in the emergency room was found to have A-fib RVR denies a history of atrial fibrillation, he also reports fatigue, malaise Review of Systems Const: Reports: chills, fatigue and malaise; Denies: fever(s) Card: Denies: chest pain GI: Reports: abdominal pain and diarrhea : Denies: flank pain or difficulty urinating Neuro: Denies: headache(s) Medications/Allergies Home Medications ?Medication ?Instructions ?Recorded ?Confirmed ?Last Taken ?Type albuterol sulfate 90 mcg/actuation 2 puff inhalation Q6H PRN 08/09/24 10/27/24 Unknown Rx aerosol inhaler shortness of breath or wheezing #6.7 grams famotidine 20 mg tablet 20 mg PO BID #60 tabs 08/10/24 10/27/24 10/25/24 Rx apixaban 5 mg tablet (Eliquis) 5 mg PO BID #60 tabs 09/26/24 10/27/24 10/25/24 Rx clopidogrel 75 mg tablet 75 mg PO DAILY #90 tabs 09/26/24 10/27/24 10/25/24 Rx escitalopram oxalate 10 mg tablet 10 mg PO DAILY #30 tabs 09/26/24 10/27/24 10/25/24 Rx morphine 60 mg tablet,extended 60 mg PO Q12H 30 days #60 tabs 09/26/24 10/27/24 10/25/24 Rx release lorazepam 1 mg tablet 0.5 - 1 mg (0.5 - 1 x 1 mg) PO Q6H 10/03/24 10/27/24 Unknown Rx PRN severe nausea #30 tabs ondansetron HCl 4 mg tablet 4 mg PO Q6H PRN nausea and 10/03/24 10/27/24 Unknown Rx vomiting #30 tabs prochlorperazine maleate 10 mg 10 mg PO Q4H PRN mild nausea #30 10/03/24 10/27/24 Unknown Rx tablet (Compazine) tabs furosemide 20 mg tablet 20 mg PO BID #60 tabs 10/10/24 10/27/24 10/25/24 Rx Portable oxygen concentrator and #1 ea 10/13/24 10/27/24 Unknown Rx supplies oxycodone-acetaminophen 10 mg-325 1 tab PO Q8H PRN pain 30 days #60 10/20/24 10/27/24 10/25/24 Rx mg tablet (Percocet) tabs polyethylene glycol 3350 17 17 g PO DAILY PRN Constipation 10/27/24 10/27/24 10/25/24 History gram/dose oral powder (Miralax) Allergies Allergy/AdvReac Type Severity Reaction Status Date / Time Penicillins Allergy Unknown ALGY-Swell Verified 10/27/24 10:02 Lip/Tongue/Throat PFSH Acute PFSH: Medical History Osteoporosis Pneumonia Opioid-induced constipation Pulmonary embolism Spinal stenosis Port-A-Cath in place but then had removed Compression fracture of T7 vertebra Cavitary lesion of lung Constipation Cancer related pain Non-small cell lung cancer Immunosuppressed due to chemotherapy Drug or medicinal substance causing adverse effect in therapeutic use Antineoplastic chemotherapy induced anemia Chemotherapy-induced vomiting Secondary malignant neoplasm of mediastinum Chemotherapy management, encounter for Malignant neoplasm of overlapping sites of right lung Lung cancer metastatic to bone GI (gastrointestinal bleed) Mass of right lung Bilateral direct inguinal hernia CAD (coronary artery disease) Tobacco abuse PAD (peripheral artery disease) Erectile 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 COPD (chronic obstructive pulmonary disease) Hyperlipidemia Surgical History History of back surgery Status post peripheral artery angioplasty with insertion of stent History of angioplasty of peripheral vessel History of right shoulder replacement History of chest tube placement History of laparoscopic cholecystectomy Family History Father Diabetes Brother , AGE 60 CAD (coronary artery disease) Myocardial infarction Mother Diabetes Grandfather Diabetes MATERNAL Grandmother Diabetes MATERNAL Social History Smoking and tobacco/nicotine status: former use of tobacco/nicotine Quit status (tobacco/nicotine): has quit using Year quit tobacco: 2022 Former quit date comment: has had no cigarette tobacco for 10 days/smoked for 50 years Alcohol intake: former Substance/Drug Use: current Substance/Drug use frequency: few times a week Household members: none Marital status: Number of children: 1 service: No 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 kings needs: No Vitals/I&O/Wt Last Vital Signs Temp 98.3 F 10/27/24 09:38 Pulse 112 H 10/27/24 13:46 Resp 23 H 10/27/24 13:46 BP 103/60 10/27/24 13:46 Pulse Ox 93 10/27/24 13:46 O2 Del Method Room Air 10/27/24 13:46 10/26/24 10/27/24 10/27/24 22:59 06:59 14:59 Intake Total 9.792 / 9.792 Balance 9.792 / 9.792 Weight last 48 hrs Weight 77.111 kg Physical Exam Const: COMMON NORMALS: no acute distress and patient oriented x3 HENMT: COMMON NORMALS: normocephalic HEAD & SCALP: normocephalic Eye: COMMON NORMALS: Equal, round and reactive pupils present Neck/C-Spine: COMMON NORMALS: no JVD Resp: COMMON NORMALS: normal respiratory effort, No retractions, No use of accessory muscles and clear to auscultation bilaterally AUSCULTATION: clear to auscultation bilaterally Cardio: COMMON NORMALS: no JVD, S1 normal heart sound present and S2 normal heart sound present RATE: tachycardic RHYTHM: abnormal rhythm irregularly irregular HEART SOUNDS: S1 normal heart sound present and S2 normal heart sound present GI: OTHER: Abdomen soft, distended, no guarding, no rebound, rigidity, good bowel sounds Extremity: COMMON NORMALS: no calf tenderness and no pedal edema Neuro: COMMON NORMALS: patient oriented x3, CN's II-XII intact bilaterally and moves all extremities Psych: COMMON NORMALS: mental status grossly normal Data 10/27/24 10:15 10/27/24 10:15 A&P Assessment and plan (1) Atrial fibrillation with RVR: (2) Malignant neoplasm of overlapping sites of right lung: (3) Influenza: (4) Diarrhea: (5) Enteritis: Plan A-fib with RVR -Cardizem drip -Continue Eliquis Enteritis -Stool studies -CMV studies -ESR, CRP, Pro-Jitendra, blood cultures -Cipro, Flagyl -Possibly viral -Possible radiation enteritis, will consider steroids based on clinical progress Influenza, start Tamiflu Dehydration, IV fluids Lung cancer History of pulmonary embolism continue Eliquis Chronic pain, continue oxycodone, morphine Full code Eliquis for DVT prophylaxis PDMP PDMP Reviewed: Last Reviewed 10/27/24 14:21 by Larry Armendariz MD Attestations Medical Necessity Statement*: Patient requires hospitalization for A-fib with RVR, enteritis, diarrhea, inpatient, greater than 2 midnights Coding Level of Care Code 40749 Diagnoses Atrial fibrillation with RVR I48.91 Malignant neoplasm of overlapping sites of right lung C34.81 Influenza J11.1 Diarrhea R19.7 Enteritis K52.9
--- NOTE | 2024-10-27 15:13 | PC.NURSE ---
per Dr. Armendariz to hold oxycodone tab order, this nurse attempted to return to [facility] with Tracy Faria, RN, upon return and double nurse fingerprint, [facility] drawer did not open, attempted to return again and placed tab in correct return bin.
[2024-10-27 15:30] LABS: Erythrocyte Sedimentation Rate 56 mm/hr (0-10)
[2024-10-27 15:38] LABS: C Reactive Protein 193.3 mg/L (0.0-4.9)
[2024-10-27] MEDS: morphine ER (12 HR) 30 mg tablet 60 MG PO ×2 (15:43→22:41)
[2024-10-27] MEDS: dilTIAZem 30 mg Tablet PO ×2 (15:43→21:01)
[2024-10-27 15:45] LABS: Procalcitonin 5.29 ng/mL (0-0.5)
[2024-10-27] MEDS: pantoprazole 40 mg SDV IVP (15:48)
[2024-10-27] MEDS: ciprofloxacin 400 MG/200 ML PREMIX 200 MG IV (15:48)
[2024-10-27 15:57] LABS: Troponin(5th) Baseline 29 ng/L (0-15)
[2024-10-27 15:59] LABS: Lactic Sepsis W/Reflex 1.7 mmol/L (0.5-2.2)
[2024-10-27] MEDS: metroNIDAZOLE IV 500 MG/100 ML PREMIX 100 MG IV ×2 (16:45→22:11)
[2024-10-27] MEDS: sodium chloride 0.9% 1,000 ML 75 ML IV (16:45)
--- NOTE | 2024-10-27 17:14 | ECG_ITS ---
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 Measurements Intervals [place] Rate: 82 P: 77 DC: 181 QRS: 81 QRSD: 101 T: 88 QT: 426 QTc: 498 Interpretive Statements SINUS RHYTHM WITH OCCASIONAL SUPRAVENTRICULAR PREMATURE COMPLEXES NONSPECIFIC T-WAVE ABNORMALITY PROLONGED QT INTERVAL Compared to ECG 10/27/2024 12:29:08 Prolonged QT interval now present Ventricular premature complex(es) no longer present Atrial abnormality no longer present T-wave abnormality still present Electronically Signed On 10-29-2024 08:19:56 APPLIED BEHAVIOR SPECIALIST by Jd Justice M.D. [email or web address] [id number]
[2024-10-27] MEDS: apixaban 5 mg Tablet PO (17:57)
--- NOTE | 2024-10-27 22:54 | ECG_ITS ---
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 Measurements Intervals [place] Rate: 70 P: 95 MA: 184 QRS: 80 QRSD: 101 T: 72 QT: 413 QTc: 446 Interpretive Statements SINUS RHYTHM MODERATE T-WAVE ABNORMALITY, CONSIDER INFERIOR ISCHEMIA [-0.1+ mV T-WAVE IN II/aVF] Compared to ECG 10/27/2024 17:14:14 Possible ischemia now present Prolonged QT interval no longer present T-wave abnormality still present Electronically Signed On 10-29-2024 08:19:45 SOCIAL WORK PROFESSOR by Jd Justice M.D. [email or web address] [id number]
[2024-10-27] MEDS: ondansetron 2 mg/ML SDV 2 mL 4 MG IVP (23:07)
[2024-10-28] VITALS (32 sets, daily range): BP systolic 77–133; BP diastolic 49–69; PULSE 69–99; RESP 14–25; TEMP 36.5–36.9; O2SAT 83–95
[2024-10-28 01:52] LABS: Bilirubin Urine Negative (Negative); Blood Urine Negative (Negative); Glucose Urine UA Negative (Normal); Ketones Urine Negative (Negative); Leukocyte Esterase Urine Negative (Negative); Nitrate Urine Negative (Negative); Protein Urine 1+ (Negative); Urine Appearance Clear (CLEAR); Urine Color Yellow (Yellow); pH Urine 5.5 (5-7)
[2024-10-28 02:12] LABS: Add Urine Microscopic? YES; Specific Gravity, Urine 1.063 (1.005-1.030)
[2024-10-28] MEDS: ciprofloxacin 400 MG/200 ML PREMIX 200 MG IV ×2 (04:16→14:45)
[2024-10-28] MEDS: dilTIAZem 30 mg Tablet PO ×2 (04:19→09:07)
[2024-10-28 05:23] LABS: Hematocrit 32.6 % (37-53); Lymphocytes # 0.2 10^3/uL (0.8-4.8); Lymphocytes % 2.9 %; Mean Corpuscular HGB Conc 31.6 g/dL (30-55); Mean Corpuscular Hemoglobin 29.9 pg (27-33); Mean Corpuscular Volume 94.8 fl (82-101); Mean Platelet Volume 9.2 fL (7.4-10.4); Monocytes # 0.4 10^3/uL (0.2-0.9); Monocytes % 4.9 %; Neutrophils # 6.61 10^3/uL (1.8-7.7); Neutrophils % 91.6 %; Nucleated Red Blood Cells % 0 %; Platelet Count 209 10^3/cmm (157-399); Red Blood Count 3.44 10^6/uL (3.85-5.65); Red Cell Distribution Width 14.2 % (12.1-15.1); White Blood Count 7.21 10^3/uL (3.29-11.43)
[2024-10-28 05:39] LABS: INR 1.08 (0.8-1.2)
[2024-10-28 05:48] LABS: Estmated Average Glucose 100; Hemoglobin A1C 5.1 % (4.0-6.0)
[2024-10-28 05:54] LABS: Chol HDL Ratio 3.64 mg/dL (1.0-5.00); Cholesterol 120 mg/dL (0-200); HDL Cholesterol 33 mg/dL (60-100); LDL Cholesterol Calculated 66 mg/dL (50-129); NT Pro B Type Natriuretic Pept 609 pg/mL (0-125); Triglycerides 107 mg/dL (0-150)
[2024-10-28 06:06] LABS: Alanine Aminotransferase 7 U/L (0-41); Albumin Level 2.7 g/dL (3.5-5.2); Alkaline Phosphatase 96 U/L (40-130); Anion Gap 13.4 (5-19); Aspartate Amino Transferase 17 U/L (0-40); Blood Urea Nitrogen 25 mg/dL (8-23); Calcium 7.9 mg/dL (8.5-10.5); Carbon Dioxide 24 mmol/L (22-29); Chloride 98 mmol/L (98-107); Creatinine Clr Calc Pharmacy 86.0402; Globulin 2.7 g/dL (1.3-4.6); Glomerular Filtration Rate 95.6 mL/min (90-130); Glucose 100 mg/dL (65-115); Osmolality Calculated 278 mOsm/kg (285-295); Phosphorus 2.5 mg/dL (2.5-4.5); Potassium 3.4 mmol/L (3.5-5.1); Sodium 132 mmol/L (136-145); Thyroid Stimulating Hormone 1.26 uIU/mL (0.27-4.20); Total Bilirubin 0.3 mg/dL (0.15-1.2); Total Protein 5.4 g/dL (6.6-8.7)
--- NOTE | 2024-10-28 07:49 | PC.NURSE ---
2216- Patient requesting his 2200 dose of morphine. morphine is not scheduled to start till 10/[address] Turcios if morphine can be given tonight. Recieved orders to give morphine tonight.
[2024-10-28] MEDS: metroNIDAZOLE IV 500 MG/100 ML PREMIX 100 MG IV ×2 (09:07→14:45)
[2024-10-28] MEDS: apixaban 5 mg Tablet PO ×2 (09:07→17:17)
[2024-10-28] MEDS: clopidogrel 75 mg Tablet PO (09:07)
[2024-10-28] MEDS: escitalopram 10 mg Tablet PO (09:07)
[2024-10-28] MEDS: morphine ER (12 HR) 30 mg tablet 60 MG PO ×2 (10:58→21:23)
[2024-10-28] MEDS: sodium chloride 0.9% 1,000 ML 75 ML IV ×2 (10:58→17:16)
--- NOTE | 2024-10-28 12:22 | PC.NURSE ---
dr brink notified of low bp's...77/52-90/50.pt is asymptomatic.pt received pain medicine at 1100.dr brink ordered 500 cc ns bolus.
[2024-10-28] MEDS: sodium chloride 0.9% 500 ML IV ×3 (12:30→17:00)
--- NOTE | 2024-10-28 13:43 | PC.SOCIAL ---
IMM Updated Updated pt on IMM. No questions voiced. Provided pt a copy. Initialed, dated, & timed a copy & placed in chart.
--- NOTE | 2024-10-28 13:49 | P.PN_ITS ---
Subjective 2 Subjective: Patient was seen this morning, denies any fevers, no chills, no nausea, no vomiting, does report fatigue, malaise, diarrhea has resolved Vitals/I&O/Wt Last Vital Signs Temp 97.9 F 10/28/24 12:27 Pulse 75 10/28/24 12:27 Resp 21 H 10/28/24 12:27 BP 86/50 10/28/24 12:27 Pulse Ox 92 10/28/24 12:27 O2 Del Method Nasal Cannula 10/28/24 12:27 O2 Flow Rate 2 10/28/24 09:16 10/27/24 10/28/24 10/28/24 22:59 06:59 14:59 Intake Total 1597.25 / 1607.042 100 / 1707.042 951.25 / 951.25 Output Total 0 / 0 300 / 300 Balance 1597.25 / 1607.042 -200 / 1407.042 951.25 / 951.25 Weight last 48 hrs Weight 64.047 kg Weight 62.766 kg Weight 77.111 kg Physical Exam 2 Const: COMMON NORMALS: no acute distress Resp: COMMON NORMALS: normal respiratory effort, No retractions, No use of accessory muscles and clear to auscultation bilaterally AUSCULTATION: clear to auscultation bilaterally Cardio: COMMON NORMALS: regular rate, regular rhythm, S1 normal heart sound present and S2 normal heart sound present RATE: regular rate RHYTHM: r egular rhythm HEART SOUNDS: S1 normal heart sound present and S2 normal heart sound present GI: COMMON NORMALS: Normal to inspection, nondistended, normoactive bowel sounds present and non-tender Extremity: COMMON NORMALS: no pedal edema Psych: COMMON NORMALS: mental status grossly normal Data 10/28/24 04:42 10/28/24 04:42 Micro: Microbiology 10/27/24 15:29 Blood Culture - Preliminary Blood SPECIMEN COLLECTED 10/27/24 15:07 Blood Culture - Preliminary Blood SPECIMEN COLLECTED A&P Assessment and plan (1) Atrial fibrillation with RVR: (2) Malignant neoplasm of overlapping sites of right lung: (3) Influenza: (4) Diarrhea: (5) Enteritis: Plan A-fib with RVR -Cardizem drip, transition to p.o. Cardizem -Continue Eliquis Enteritis CT/CT abdomen pelvis w con* [id number] IMPRESSION: 1. Mild submucosal enhancement of the small bowel with fluid distended small bowel loops suspicious for small bowel enteritis. No evidence of high-grade obstruction. 2. Air and fluid distention of the transverse colon unchanged since 09/23/2024. Decompressed LEFT colon and sigmoid colon. 3. Prior cholecystectomy. 4. Gastritis and duodenitis. 5. Few small nodular opacities in the lung bases may be infectious or inflammatory new from previous. Metastatic disease not excluded considering history -Stool studies -CMV studies -ESR 56, CRP 193, Pro-Jitendra 5.29, blood cultures pending -Cipro, Flagyl -Possibly viral -Possible radiation enteritis, will consider steroids based on clinical progress Influenza, Tamiflu Dehydration, IV fluids Lung cancer History of pulmonary embolism continue Eliquis Chronic pain, continue oxycodone, morphine Full code Eliquis for DVT prophylaxis PDMP PDMP Reviewed: Last Reviewed 10/27/24 14:21 by Larry Armendariz MD Attestations 2 Medical Necessity Statement*: Patient requires hospitalization for A-fib, enteritis, requiring IV antibiotics, influenza Diagnoses Atrial fibrillation with RVR I48.91 Malignant neoplasm of overlapping sites of right lung C34.81 Influenza J11.1 Diarrhea R19.7 Enteritis K52.9
[2024-10-28] MEDS: pantoprazole 40 mg SDV IVP (14:45)
--- NOTE | 2024-10-28 14:59 | XR_ITS ---
WS: [id number] Portable AP upright chest, 10/28/2024 Clinical Data: sob Comparison: Portable chest, 10/27/2024 Findings: There is a patchy opacity extending from the right hilum inferiorly probably into the right lower lobe. This is occurred in the last day. The left lung is clear. The heart appears larger because of the poor inspiratory effort. The right hilar mass remains the same. The aortic arch is tortuous. The diaphragms are flattened. There is a reverse right shoulder arthroplasty. Monitor leads are on the chest wall. Vertebroplasty cement is in a thoracic vertebral body. XR/XR chest 1V portable [id number] Impression: 1. Patchy opacity extending from right hilum inferiorly into the right lower lo be which could represent acute pneumonia. 2. The right hilar density and peripheral stranding into the right middle lobe remains the same. 2. Increase in heart size probably secondary to poor inspiratory effort.
[2024-10-28] MEDS: midodrine 5 mg TABLET 10 MG PO (15:58)
--- NOTE | 2024-10-28 16:11 | PC.NURSE ---
pt's bp improved slightly...but still low.2nd bolus of 500 cc ns instituted as ordered.also midodrine given po as ordered. dr brink also ordered pcxr.pt has yet to void this shift..bladder scanned..350 cc volume noted and reported to dr brink
[2024-10-28 16:37] LABS: Lactic Sepsis W/Reflex 0.9 mmol/L (0.5-2.2)
[2024-10-28 17:10] LABS: Cytomegalovirus Antibody (IGG) <0.60 U/mL; Cytomegalovirus Antibody (IGM) <30.00 AU/mL
--- NOTE | 2024-10-28 19:49 | PC.NURSE ---
Addendum entered by Deborah Salmeron RN 10/29/24 07:15: Orthostatic BP -Laying BP 98/49 Sitting- patient did not want to stand unable to get standing at this time. Original Note: Laying BP 98/49 Sitting-/55
[2024-10-28] MEDS: potassium chloride ER 20 mEq Tablet 40 MEQ PO (21:22)
[2024-10-28] MEDS: budesonide 0.5 mg/2 mL Neb INHALATION (23:13)
[2024-10-29] VITALS (80 sets, daily range): BP systolic 82–118; BP diastolic 41–73; PULSE 81–159; RESP 14–39; TEMP 36.5–37.1; O2SAT 70–95
[2024-10-29] MEDS: midodrine 5 mg TABLET 10 MG PO ×4 (00:17→23:25)
[2024-10-29] MEDS: metroNIDAZOLE IV 500 MG/100 ML PREMIX 100 MG IV ×4 (00:17→23:26)
[2024-10-29] MEDS: ipratropium-albuterol 3 mL Neb INHALATION ×2 (00:44→08:09)
[2024-10-29] MEDS: ciprofloxacin 400 MG/200 ML PREMIX 200 MG IV (03:36)
[2024-10-29 03:55] LABS: Hematocrit 29.9 % (37-53); Lymphocytes # 0.2 10^3/uL (0.8-4.8); Lymphocytes % 4.1 %; Mean Corpuscular HGB Conc 29.8 g/dL (30-55); Mean Corpuscular Hemoglobin 30.1 pg (27-33); Mean Platelet Volume 9.6 fL (7.4-10.4); Monocytes # 0.2 10^3/uL (0.2-0.9); Monocytes % 4.9 %; Neutrophils # 4.43 10^3/uL (1.8-7.7); Neutrophils % 90.4 %; Nucleated Red Blood Cells % 0 %; Platelet Count 185 10^3/cmm (157-399); Red Blood Count 2.96 10^6/uL (3.85-5.65); Red Cell Distribution Width 14.3 % (12.1-15.1)
[2024-10-29 04:10] LABS: INR 1.49 (0.8-1.2)
[2024-10-29 04:19] LABS: Alanine Aminotransferase 7 U/L (0-41); Albumin Level 2.5 g/dL (3.5-5.2); Alkaline Phosphatase 93 U/L (40-130); Anion Gap 11.9 (5-19); Aspartate Amino Transferase 20 U/L (0-40); Blood Urea Nitrogen 20 mg/dL (8-23); Calcium 7.7 mg/dL (8.5-10.5); Carbon Dioxide 23 mmol/L (22-29); Chloride 102 mmol/L (98-107); Creatinine Clr Calc Pharmacy 76.4802; Globulin 2.3 g/dL (1.3-4.6); Glomerular Filtration Rate 83.4 mL/min (90-130); Glucose 80 mg/dL (65-115); Osmolality Calculated 278 mOsm/kg (285-295); Potassium 3.9 mmol/L (3.5-5.1); Sodium 133 mmol/L (136-145); Total Bilirubin 0.3 mg/dL (0.15-1.2); Total Protein 4.8 g/dL (6.6-8.7)
--- NOTE | 2024-10-29 07:11 | PC.NURSE ---
2019- called for no voids since 399 last bladder scan of 300 requesting straight ccath orders. Also notifying MD that potassium is 3.4, BP are low with systolics in low 100-90 with diltizem schedule, and RUQ pain. Recieved orders for straight cath for greater than 200, 40 meq of potassium PO, hold diltizem, and since pt has no gallbladder just medicate with pain medications for pain.
[2024-10-29] MEDS: budesonide 0.5 mg/2 mL Neb INHALATION ×2 (08:09→20:14)
[2024-10-29] MEDS: apixaban 5 mg Tablet PO ×2 (09:14→17:43)
[2024-10-29] MEDS: escitalopram 10 mg Tablet PO (09:14)
[2024-10-29] MEDS: clopidogrel 75 mg Tablet PO (09:14)
[2024-10-29] MEDS: vancomycin 2,000 MG/400 ML PIGGYBACK 200 MG IV (09:21)
--- NOTE | 2024-10-29 09:33 | CTR_ITS ---
PROCEDURE INFORMATION: Exam: CT Chest Without Contrast; Diagnostic Exam date and time: 10/29/2024 11:02 AM Age: 69 years old Clinical indication: Shortness of breath; Additional info: SOB . History of lung cancer. TECHNIQUE: Imaging protocol: Diagnostic computed tomography of the chest without contrast. Radiation optimization: All CT scans at this facility use at least one of these dose optimization techniques: automated exposure control; mA and/or kV adjustment per patient size (includes targeted exams where dose is matched to clinical indication); or iterative reconstruction. COMPARISON: CT chest abdpel w/*[id number] 09/23/2024 10:30 AM RADIATION DOSE METRICS: Total DLP (mGy-cm): 324.52 FINDINGS: Thyroid: Thyroid gland normal. Lungs: Masslike consolidation with air bronchograms in the posterior right upper lobe/superior portion of the right lower lobe has moderately worsened compared to 09/23/2024. Difficult to measuring entirety. New/more prominent focal patchy ground-glass opacity in the peripheral left upper lobe on image 22 series 4. New/more prominent platelike opacities in the left lung base may represent subsegmental atelectasis versus infiltrate. Pleural spaces: No pneumothorax. Small right pleural effusion. No distinct left-sided effusion. Heart: Normal heart size. No pericardial fluid. Moderate coronary vessel atherosclerosis. Lymph nodes: Several mildly prominent mediastinal lymph nodes are present. Calcified subcarinal and left hilar lymph nodes from prior granulomatous infection. Vasculature: See Heart finding. Spleen: Benign-appearing cyst left superior pole. Multiple calcified granulomas in the spleen. Status post cholecystectomy. Bones/joints: Prior vertebroplasty at C7. Remote compression fracture C5. Subjective osteopenia. Total right shoulder arthroplasty . Remote, healed fractures of the left posterior 7th-10th ribs. No distinct worrisome lytic or blastic osseous lesion. Soft tissues: Mild anasarca. Mild bilateral gynecomastia. CT/CT chest wo con [id number] IMPRESSION: 1. Masslike consolidation with air bronchograms in the posterior right upper lobe/superior portion of the right lower lobe has moderately worsened compared to 09/23/2024. Difficult to measure in its entirety. Cystic component posteriorly measuring 2.7 cm craniocaudal is unchanged. May represent reported history of lung cancer. Superimposed infectious/inflammatory etiology not excluded. 2. New/more prominent focal patchy ground-glass opacity in the peripheral left upper lobe. May represent metastatic disease, infectious or inflammatory etiology. 3. Small right pleural effusion.
--- NOTE | 2024-10-29 09:44 | ECG_ITS ---
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 Measurements Intervals [place] Rate: 126 P: 0 [place]: 0 QRS: 61 QRSD: 98 T: 52 QT: 319 QTc: 463 Interpretive Statements ATRIAL FIBRILLATION WITH RAPID VENTRICULAR RESPONSE NONSPECIFIC ST & T-WAVE ABNORMALITY ABNORMAL RHYTHM ECG Compared to ECG 10/27/2024 22:54:28 Sinus rhythm no longer present Possible ischemia no longer present T-wave abnormality still present Electronically Signed On 10-30-2024 12:37:33 VENETIAN BLIND MECHANIC by Corinna Canela M.D. [id number]
--- NOTE | 2024-10-29 09:45 | ECG_ITS ---
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 Measurements Intervals [place] Rate: 124 P: 0 [place]: 0 QRS: 79 QRSD: 98 T: 75 QT: 317 QTc: 457 Interpretive Statements ATRIAL FIBRILLATION WITH RAPID VENTRICULAR RESPONSE NONSPECIFIC ST & T-WAVE ABNORMALITY ABNORMAL RHYTHM ECG Compared to ECG 10/29/2024 09:44:18 No significant changes Electronically Signed On 10-30-2024 12:45:34 TANKAGE SUPERVISOR by Corinna Canela M.D. [email or web address] [id number]
--- NOTE | 2024-10-29 10:05 | PHA.VACGOAL ---
Vancomycin Goal - Goal Vancomycin Goal:: 15-20 mg/L Vancomycin Indication:: Pneumonia - Therapy Day of therpy:: Day []of [] . Actual body weight (kg): 148 lb 2 oz - Data Labs: WBC 4.90 10^3/uL (3.29-11.43) 10/29/24 03:21 RBC 2.96 10^6/uL (3.85-5.65) L 10/29/24 03:21 Hgb 8.90 g/dL (11.27-16.99) L 10/29/24 03:21 Hct 29.9 % (37-53) L 10/29/24 03:21 MCV 101.0 fl (82-101) D 10/29/24 03:21 MCH 30.1 pg (27-33) 10/29/24 03:21 MCHC 29.8 g/dL (30-55) L D 10/29/24 03:21 RDW 14.3 % (12.1-15.1) 10/29/24 03:21 Sodium 133 mmol/L (136-145) L 10/29/24 03:21 Potassium 3.9 mmol/L (3.5-5.1) 10/29/24 03:21 Chloride 102 mmol/L (98-107) 10/29/24 03:21 Carbon Dioxide 23 mmol/L (22-29) 10/29/24 03:21 Anion Gap 11.9 (5-19) 10/29/24 03:21 BUN 20 mg/dL (8-23) 10/29/24 03:21 Creatinine 0.9 mg/dL (0.7-1.2) 10/29/24 03:21 GFR Calculation 83.4 mL/min (90-130) L 10/29/24 03:21 Treatment plan:: new consult Regimen:: 2000 mg loading dose 1000 MG Q12H AFTER
[2024-10-29 10:37] LABS: Troponin(5th) Baseline 32 ng/L (0-15)
[2024-10-29 11:21] LABS: NT Pro B Type Natriuretic Pept 2459 pg/mL (0-125)
--- NOTE | 2024-10-29 11:22 | PC.NURSE ---
pt had reverted to atrial fibrillation at approx 0100 this morning.hr 100-150's depending on activity.bp remains marginal.pt not as alert and oriented as yesterday.knows he is in hospital in [place]...but does not know year .dr brink evaluated pt and ordered amiodarone drip (no bolus) ct of chest,and transfer to icu.report phoned to karyna brito.pt transported to ct scan and then to icu 11 at 11:00.daughter in [place] updated to pt's status.
[2024-10-29 12:21] LABS: Troponin 5 2HR 30.68 ng/L (0-15)
[2024-10-29 12:24] LABS: Troponin 5 2HR Delta -1.32 ABS# (0-10)
--- NOTE | 2024-10-29 13:00 | PC.NURSE ---
with frequent attempt to void standing noted blood pressure from 98/60 to standing 70/40 only very small amt approx 10cc with frequent attempt about every 15 min .. talked with pt at length and [place] 14 fr inserted return 200cc urine remains on amio gtt and continues afib rvr
--- NOTE | 2024-10-29 13:39 | PC.NURSE ---
doctor aware ms contin not given prior related to blood pressures
--- NOTE | 2024-10-29 15:05 | P.PN_ITS ---
Subjective 2 Subjective: Patient was examined this morning, in cardiac stepdown unit, he complains of shortness of breath, complains of wheezing and crackles he got up to use the bathroom and since then his blood pressures have come down, he feels short of breath, blood pressures MAP is hovering around 65, currently in A-fib with RVR, heart rates in the 120s, he is alert oriented x 3, following all commands denies any chest pain Vitals/I&O/Wt Last Vital Signs Temp 98.8 F 10/29/24 07:26 Pulse 112 H 10/29/24 12:53 Resp 25 H 10/29/24 10:45 BP 104/56 10/29/24 12:45 Pulse Ox 78 L 10/29/24 12:45 O2 Del Method Nasal Cannula 10/29/24 08:00 O2 Flow Rate 4 10/29/24 08:00 10/29/24 10/29/24 10/29/24 06:59 14:59 22:59 Intake Total 750 / 4513.75 1260.708 / 1260.708 Output Total 100 / 100 Balance 750 / 4463.75 1160.708 / 1160.708 Weight last 48 hrs Weight 67.188 kg Weight 64.047 kg Weight 62.766 kg Physical Exam 2 Const: COMMON NORMALS: no acute distress and patient oriented x3 Resp: COMMON NORMALS: normal respiratory effort, No retractions and No use of accessory muscles AUSCULTATION: crackles and wheezes Cardio: COMMON NORMALS: S1 normal heart sound present and S2 normal heart sound present RATE: tachycardic RHYTHM: abnormal rhythm HEART SOUNDS: S 1 normal heart sound present and S2 normal heart sound present GI: COMMON NORMALS: Normal to inspection, nondistended, normoactive bowel sounds present and non-tender Extremity: COMMON NORMALS: no pedal edema Neuro: COMMON NORMALS: patient oriented x3 Psych: COMMON NORMALS: mental status grossly normal Data 10/29/24 03:21 10/29/24 03:21 Micro: Microbiology 10/27/24 15:29 Blood Culture - Preliminary Blood NEGATIVE TO DATE 10/27/24 15:07 Blood Culture - Preliminary Blood NEGATIVE TO DATE A&P Assessment and plan (1) Atrial fibrillation with RVR: (2) Malignant neoplasm of overlapping sites of right lung: (3) Influenza: (4) Diarrhea: (5) Enteritis: (6) Acute on chronic hypoxic respiratory failure: Plan A-fib with RVR -Moved to ICU, amiodarone drip -Continue Eliquis Acute hypoxic respiratory failure -Concerns for pneumonia versus fluid overload -CT chest -Aspiration precautions, dysphagia level 6 diet -Monitor in ICU -Lasix with albumin Enteritis CT/CT abdomen pelvis w con* [id number] IMPRESSION: 1. Mild submucosal enhancement of the small bowel with fluid distended small bowel loops suspicious for small bowel enteritis. No evidence of high-grade obstruction. 2. Air and fluid distention of the transverse colon unchanged since 09/23/2024. Decompressed LEFT colon and sigmoid colon. 3. Prior cholecystectomy. 4. Gastritis and duodenitis. 5. Few small nodular opacities in the lung bases may be infectious or inflammatory new from previous. Metastatic disease not excluded considering history -Stool studies -CMV studies -ESR 56, CRP 193, Pro-Jitendra 5.29, blood cultures pending -Continue Flagyl, -Add aztreonam -Possibly viral -Possible radiation enteritis, will consider steroids based on clinical progress Influenza, Tamiflu Dehydration, IV fluids Lung cancer History of pulmonary embolism continue Eliquis Chronic pain, continue oxycodone, morphine Full code Eliquis for DVT prophylaxis PDMP PDMP Reviewed: Last Reviewed 10/27/24 14:21 by Larry Armendariz MD Attestations 2 Medical Necessity Statement*: Patient requires hospitalization for acute hypoxic respiratory failure, A-fib with RVR, enteritis, influenza Diagnoses Atrial fibrillation with RVR I48.91 Malignant neoplasm of overlapping sites of right lung C34.81 Influenza J11.1 Diarrhea R19.7 Enteritis K52.9 Acute on chronic hypoxic respiratory failure J96.21
[2024-10-29] MEDS: pantoprazole 40 mg SDV IVP (15:17)
[2024-10-29] MEDS: FUROsemide 10 mg/mL SDV 4mL 40 MG IVP (15:18)
[2024-10-29] MEDS: albumin 25 G/100 ML BAG 60 G IV (15:18)
--- NOTE | 2024-10-29 15:26 | ECG_ITS ---
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 Measurements Intervals [place] Rate: 102 P: 0 [place]: 0 QRS: 75 QRSD: 101 T: 64 QT: 351 QTc: 458 Interpretive Statements ATRIAL FIBRILLATION WITH RAPID VENTRICULAR RESPONSE ABNORMAL RHYTHM ECG Compared to ECG 10/29/2024 09:45:37 T-wave abnormality no longer present Electronically Signed On 10-30-2024 12:45:12 SURGICAL NURSE PRACTITIONER by Corinna Caneal M.D. [id number] [id number]
[2024-10-29] MEDS: aztreonam 1,000 MG in sodium chloride 0.9% (plus) 50 ML 100 MG IV (16:05)
[2024-10-29 17:02] LABS: Troponin 5 6HR 25.86 ng/L (0-15)
[2024-10-29 17:03] LABS: Troponin 5 6HR Delta -6.14 ng/L (0-12)
[2024-10-29] MEDS: oseltamivir phosphate 75 mg Capsule PO (17:43)
[2024-10-29] MEDS: VANCOMYCIN ADD-Vantage 1,000 MG in 0.9% NaCl ADD-Vantage 250 ML 250 MG IV (20:14)
[2024-10-29] MEDS: morphine ER (12 HR) 30 mg tablet 60 MG PO (21:23)
[2024-10-30] VITALS (80 sets, daily range): BP systolic 83–124; BP diastolic 51–86; PULSE 60–141; RESP 14–24; TEMP 36.4–36.8; O2SAT 74–98
[2024-10-30] MEDS: aztreonam 1,000 MG in sodium chloride 0.9% (plus) 50 ML 100 MG IV ×2 (04:01→16:30)
[2024-10-30 04:45] LABS: Basophils % 0.4 %; Hematocrit 31.7 % (37-53); Lymphocytes # 0.2 10^3/uL (0.8-4.8); Lymphocytes % 7.6 %; Mean Corpuscular HGB Conc 31.2 g/dL (30-55); Mean Corpuscular Hemoglobin 29.1 pg (27-33); Mean Corpuscular Volume 93.2 fl (82-101); Mean Platelet Volume 9.4 fL (7.4-10.4); Monocytes # 0.3 10^3/uL (0.2-0.9); Monocytes % 10.5 %; Neutrophils # 2.24 10^3/uL (1.8-7.7); Neutrophils % 81.1 %; Nucleated Red Blood Cells % 0 %; Platelet Count 159 10^3/cmm (157-399); Red Cell Distribution Width 13.9 % (12.1-15.1); White Blood Count 2.76 10^3/uL (3.29-11.43)
[2024-10-30 04:47] LABS: INR 1.32 (0.8-1.2)
[2024-10-30 04:57] LABS: Alanine Aminotransferase 10 U/L (0-41); Albumin Level 2.7 g/dL (3.5-5.2); Alkaline Phosphatase 86 U/L (40-130); Anion Gap 13.4 (5-19); Aspartate Amino Transferase 38 U/L (0-40); Blood Urea Nitrogen 13 mg/dL (8-23); Calcium 7.9 mg/dL (8.5-10.5); Carbon Dioxide 26 mmol/L (22-29); Chloride 99 mmol/L (98-107); Creatinine Clr Calc Pharmacy 87.5671; Globulin 2.5 g/dL (1.3-4.6); Glomerular Filtration Rate 111.5 mL/min (90-130); Glucose 93 mg/dL (65-115); Magnesium 1.7 mg/dL (1.7-2.3); Osmolality Calculated 280 mOsm/kg (285-295); Phosphorus 2.6 mg/dL (2.5-4.5); Potassium 3.4 mmol/L (3.5-5.1); Sodium 135 mmol/L (136-145); Total Bilirubin 0.3 mg/dL (0.15-1.2); Total Protein 5.2 g/dL (6.6-8.7)
[2024-10-30] MEDS: budesonide 0.5 mg/2 mL Neb INHALATION ×2 (08:33→20:40)
[2024-10-30] MEDS: ipratropium-albuterol 3 mL Neb INHALATION ×2 (08:33→20:40)
[2024-10-30] MEDS: apixaban 5 mg Tablet PO ×2 (08:55→17:12)
[2024-10-30] MEDS: morphine ER (12 HR) 30 mg tablet 60 MG PO ×2 (08:55→21:33)
[2024-10-30] MEDS: metroNIDAZOLE IV 500 MG/100 ML PREMIX 100 MG IV ×2 (08:55→17:12)
[2024-10-30] MEDS: oseltamivir phosphate 75 mg Capsule PO ×2 (08:55→17:12)
[2024-10-30] MEDS: amiodarone 200 mg Tablet 400 MG PO ×2 (08:55→17:12)
[2024-10-30] MEDS: midodrine 5 mg TABLET 10 MG PO ×2 (08:56→16:29)
[2024-10-30] MEDS: clopidogrel 75 mg Tablet PO (08:56)
[2024-10-30] MEDS: escitalopram 10 mg Tablet PO (08:56)
[2024-10-30] MEDS: VANCOMYCIN ADD-Vantage 1,000 MG in 0.9% NaCl ADD-Vantage 250 ML 250 MG IV ×2 (09:29→20:06)
[2024-10-30] MEDS: potassium chloride ER 20 mEq Tablet 40 MEQ PO (10:45)
[2024-10-30] MEDS: albumin 25 G/100 ML BAG 60 G IV (10:45)
[2024-10-30] MEDS: FUROsemide 10 mg/mL SDV 4mL 40 MG IVP (10:46)
--- NOTE | 2024-10-30 12:42 | P.PN_ITS ---
Vitals/I&O/Wt Last Vital Signs Temp 97.5 F L 10/30/24 04:00 Pulse 79 10/30/24 12:30 Resp 24 H 10/30/24 12:00 BP 108/62 10/30/24 12:30 Pulse Ox 95 10/30/24 12:30 O2 Del Method Nasal Cannula 10/30/24 08:00 O2 Flow Rate 3 10/30/24 08:00 10/29/24 10/30/24 10/30/24 22:59 06:59 14:59 Intake Total 942.203 / 2202.911 346.15 / 2549.061 920.858 / 920.858 Output Total 3700 / 3800 750 / 4550 Balance -2757.797 / -1597.089 -403.85 / -2000.939 920.858 / 920.858 Weight last 48 hrs Weight 66.542 kg Weight 67.188 kg Physical Exam 2 Const: COMMON NORMALS: no acute distress and patient oriented x3 Resp: COMMON NORMALS: normal respiratory effort, No retractions, No use of accessory muscles and clear to auscultation bilaterally AUSCULTATION: clear to auscultation bilaterally Cardio: COMMON NORMALS: regular rate, regular rhythm, S1 normal heart sound present and S2 normal heart sound present RATE: regular rate RHYTHM: r egular rhythm HEART SOUNDS: S1 normal heart sound present and S2 normal heart sound present GI: COMMON NORMALS: Normal to inspection, nondistended, normoactive bowel sounds present and non-tender Extremity: COMMON NORMALS: no pedal edema Neuro: COMMON NORMALS: patient oriented x3 Psych: COMMON NORMALS: mental status grossly normal Data 10/30/24 04:23 10/30/24 04:23 A&P Assessment and plan (1) Atrial fibrillation with RVR: (2) Malignant neoplasm of overlapping sites of right lung: (3) Influenza: (4) Diarrhea: (5) Enteritis: (6) Acute on chronic hypoxic respiratory failure: Plan A-fib with RVR -Moved to ICU, amiodarone drip, transition to po amiodarone -Continue Eliquis Acute hypoxic respiratory failure -Concerns for pneumonia versus fluid overload -CT chest CT/CT chest wo con [id number] IMPRESSION: 1. Masslike consolidation with air bronchograms in the posterior right upper lobe/superior portion of the right lower lobe has moderately worsened compared to 09/23/2024. Difficult to measure in its entirety. Cystic component posteriorly measuring 2.7 cm craniocaudal is unchanged. May represent reported history of lung cancer. Superimposed infectious/inflammatory etiology not excluded. 2. New/more prominent focal patchy ground-glass opacity in the peripheral left upper lobe. May represent metastatic disease, infectious or inflammatory etiology. 3. Small right pleural effusion. -Aspiration precautions, dysphagia level 6 diet -Monitor in ICU -Lasix with albumin Enteritis CT/CT abdomen pelvis w con* [id number] IMPRESSION: 1. Mild submucosal enhancement of the small bowel with fluid distended small bowel loops suspicious for small bowel enteritis. No evidence of high-grade obstruction. 2. Air and fluid distention of the transverse colon unchanged since 09/23/2024. Decompressed LEFT colon and sigmoid colon. 3. Prior cholecystectomy. 4. Gastritis and duodenitis. 5. Few small nodular opacities in the lung bases may be infectious or inflammatory new from previous. Metastatic disease not excluded considering history -Stool studies -CMV studies -ESR 56, CRP 193, Pro-Jitendra 5.29, blood cultures pending -Continue Flagyl, -Add aztreonam -Possibly viral -Possible radiation enteritis, will consider steroids based on clinical progress Influenza, Tamiflu Dehydration, off fluids Lung cancer History of pulmonary embolism continue Eliquis Chronic pain, continue oxycodone, morphine Full code Eliquis for DVT prophylaxis Plan for today, wean off amiodarone drip, IV antibiotics, IV diuresis PDMP PDMP Reviewed: Last Reviewed 10/27/24 14:21 by Larry Armendariz MD Attestations 2 Medical Necessity Statement*: Patient requires hospital to A-fib, respiratory failure, fluid overload influenza, enteritis Diagnoses Atrial fibrillation with RVR I48.91 Malignant neoplasm of overlapping sites of right lung C34.81 Influenza J11.1 Diarrhea R19.7 Enteritis K52.9 Acute on chronic hypoxic respiratory failure J96.21
[2024-10-30] MEDS: pantoprazole 40 mg SDV IVP (16:30)
--- NOTE | 2024-10-30 21:52 | PC.NURSE ---
[place] catheter Order received to remove [place] catheter. Patient urine output 850 thus far this shift and patient stated he would like the catheter to remain since he received lasix earlier today. Dr. Turcios contacted and order received to allow [place] catheter to remain until in the morning for accurate output measurements while on lasix.
[2024-10-31] VITALS (41 sets, daily range): BP systolic 89–128; BP diastolic 53–72; PULSE 56–76; RESP 17–20; TEMP 36.6–37.1; O2SAT 91–98
[2024-10-31] MEDS: midodrine 5 mg TABLET 10 MG PO ×3 (00:42→16:06)
[2024-10-31] MEDS: metroNIDAZOLE IV 500 MG/100 ML PREMIX 100 MG IV ×3 (00:43→16:06)
[2024-10-31] MEDS: aztreonam 1,000 MG in sodium chloride 0.9% (plus) 50 ML 100 MG IV ×2 (04:07→16:06)
[2024-10-31 05:32] LABS: Basophils % 0.5 %; Hematocrit 30.6 % (37-53); Lymphocytes # 0.3 10^3/uL (0.8-4.8); Mean Corpuscular Hemoglobin 29.4 pg (27-33); Mean Corpuscular Volume 94.7 fl (82-101); Mean Platelet Volume 9.5 fL (7.4-10.4); Monocytes # 0.3 10^3/uL (0.2-0.9); Monocytes % 16.1 %; Neutrophils # 1.31 10^3/uL (1.8-7.7); Neutrophils % 67.9 %; Nucleated Red Blood Cells % 0 %; Platelet Count 192 10^3/cmm (157-399); Red Blood Count 3.23 10^6/uL (3.85-5.65); Red Cell Distribution Width 13.8 % (12.1-15.1); White Blood Count 1.93 10^3/uL (3.29-11.43)
[2024-10-31 06:07] LABS: Add RBC Morph Yes; Slide Review Slide Review Perform
[2024-10-31 06:08] LABS: Hypochromasia 2+; RBC Morph Comp No
[2024-10-31 06:09] LABS: Anisocytosis 1+; Ovalocytes 1+; Poikilocytosis 1+
[2024-10-31 06:11] LABS: NT Pro B Type Natriuretic Pept 2204 pg/mL (0-125); Procalcitonin 0.45 ng/mL (0-0.5)
[2024-10-31 06:22] LABS: Alanine Aminotransferase 9 U/L (0-41); Albumin Level 2.7 g/dL (3.5-5.2); Alkaline Phosphatase 77 U/L (40-130); Anion Gap 13.5 (5-19); Aspartate Amino Transferase 31 U/L (0-40); Blood Urea Nitrogen 12 mg/dL (8-23); C Reactive Protein 58.2 mg/L (0.0-4.9); Calcium 8.3 mg/dL (8.5-10.5); Carbon Dioxide 27 mmol/L (22-29); Chloride 100 mmol/L (98-107); Creatinine Clr Calc Pharmacy 87.2531; Globulin 2.5 g/dL (1.3-4.6); Glomerular Filtration Rate 133.2 mL/min (90-130); Glucose 93 mg/dL (65-115); Magnesium 1.7 mg/dL (1.7-2.3); Osmolality Calculated 283 mOsm/kg (285-295); Phosphorus 2.3 mg/dL (2.5-4.5); Potassium 3.5 mmol/L (3.5-5.1); Sodium 137 mmol/L (136-145); Total Bilirubin 0.3 mg/dL (0.15-1.2); Total Protein 5.2 g/dL (6.6-8.7)
--- NOTE | 2024-10-31 07:00 | XR_ITS ---
WS: [id number] XR chest 1V portable [id number] REASON FOR EXAM: sob FINDINGS: Complex hilar perihilar and superimposed superior right lower lobe opacity with air bronchograms. Volume loss of the right lower lung. CT scan without contrast 10/29/2024, highly suggestive of hilar mass and postobstructive pneumonitis. This abnormality has progressed since 10/27/2024 but is stable compared to the most recent examination of 10/28/2024. XR/XR chest 1V portable [id number] IMPRESSION: Complex abnormality in the right lung which highly likely represents neoplastic involvement of the right hilum and postobstructive pneumonitis with increasing atelectasis and consolidation in the superior right lower lung.
[2024-10-31] MEDS: escitalopram 10 mg Tablet PO (08:11)
[2024-10-31] MEDS: oseltamivir phosphate 75 mg Capsule PO ×2 (08:11→17:14)
[2024-10-31] MEDS: apixaban 5 mg Tablet PO ×2 (08:11→17:14)
[2024-10-31] MEDS: clopidogrel 75 mg Tablet PO (08:11)
[2024-10-31] MEDS: amiodarone 200 mg Tablet 400 MG PO ×2 (08:11→17:14)
[2024-10-31] MEDS: VANCOMYCIN ADD-Vantage 1,000 MG in 0.9% NaCl ADD-Vantage 250 ML 250 MG IV ×2 (08:12→21:14)
[2024-10-31] MEDS: ipratropium-albuterol 3 mL Neb INHALATION ×2 (08:46→21:01)
[2024-10-31] MEDS: budesonide 0.5 mg/2 mL Neb INHALATION ×2 (08:46→21:01)
--- NOTE | 2024-10-31 09:17 | PC.NURSE ---
Doctor Marcello ordered to hold the lasix, albumin and oral potassium for now.
[2024-10-31] MEDS: morphine ER (12 HR) 30 mg tablet 60 MG PO ×2 (09:19→21:18)
[2024-10-31] MEDS: oxyCODONE-APAP 10-325 mg Tablet 1 TAB PO (13:12)
[2024-10-31] MEDS: pantoprazole 40 mg SDV IVP (14:20)
--- NOTE | 2024-10-31 14:21 | P.PN_ITS ---
Subjective 2 Subjective: Patient was seen this morning, he is alert oriented x 3, following all commands, patient's daughters at bedside, he is normotensive, heart rates in the 60s, rhythm is atrial fibrillation, denies any nausea, no vomiting, no chest pain, no palpitations, does report feeling weak and fatigued, not had a detailed discussion with patient's daughter at bedside, discussed to his hospitalization, patient's daughter tells me that Karthik does not really talk to her about his ongoing cancer, discussed with her patient's cancer status, Vitals/I&O/Wt Last Vital Signs Temp 98.7 F 10/31/24 08:00 Pulse 62 10/31/24 14:00 Resp 18 10/31/24 13:12 BP 104/63 10/31/24 14:00 Pulse Ox 97 10/31/24 14:00 O2 Del Method Nasal Cannula 10/31/24 14:00 O2 Flow Rate 2 10/31/24 14:00 10/30/24 10/31/24 10/31/24 22:59 06:59 14:59 Intake Total 700 / 1970.858 100 / 2070.858 1120 / 1120 Output Total 1875 / 1875 35 / 1910 200 / 200 Balance -1175 / 95.858 65 / 160.858 920 / 920 Weight last 48 hrs Weight 64.274 kg Weight 66.542 kg Physical Exam 2 Const: COMMON NORMALS: no acute distress and patient oriented x3 OTHER: Ill-appearing, Evidence of protein calorie malnutrition, bilateral temporal muscle wasting, fat pad thinning under bilateral clavicles, ribs, muscle loss bilateral thighs, arms Resp: COMMON NORMALS: normal respiratory effort, No retractions and No use of accessory muscles AUSCULTATION: crackles and rhonchi Cardio: COMMON NORMALS: regular rate, S1 normal heart sound present and S2 normal heart sound present RATE: regular rate RHYTHM: abnormal rhythm irregularly irregular HEART SOUNDS: S1 normal heart sound present and S2 normal heart sound present GI: COMMON NORMALS: Normal to inspection, nondistended, normoactive bowel sounds present and non-tender Extremity: COMMON NORMALS: no pedal edema Neuro: COMMON NORMALS: patient oriented x3 Psych: COMMON NORMALS: mental status grossly normal Urinary Catheter Management: Wise: Cath Placed During This Visit: no Reason for Continuing Indwelling Catheter: Accurate Measurement of Urinary Output in Critically Ill Patients Data 10/31/24 05:13 10/31/24 05:13 A&P Assessment and plan (1) Atrial fibrillation with RVR: (2) Malignant neoplasm of overlapping sites of right lung: (3) Influenza: (4) Diarrhea: (5) Enteritis: (6) Acute on chronic hypoxic respiratory failure: (7) Cancer cachexia: (8) Physical deconditioning: (9) Protein calorie malnutrition: Plan A-fib with RVR -Currently heart rates are well-controlled, on p.o. amiodarone -Continue Eliquis Acute hypoxic respiratory failure -Concerns for pneumonia versus fluid overload -influenza -CT chest CT/CT chest wo con [id number] IMPRESSION: 1. Masslike consolidation with air bronchograms in the posterior right upper lobe/superior portion of the right lower lobe has moderately worsened compared to 09/23/2024. Difficult to measure in its entirety. Cystic component posteriorly measuring 2.7 cm craniocaudal is unchanged. May represent reported history of lung cancer. Superimposed infectious/inflammatory etiology not excluded. 2. New/more prominent focal patchy ground-glass opacity in the peripheral left upper lobe. May represent metastatic disease, infectious or inflammatory etiology. 3. Small right pleural effusion. -Aspiration precautions, dysphagia level 6 diet -on IV abx -vancomycin -aztreonam -tamiflu -Lasix with albumin on hold Enteritis CT/CT abdomen pelvis w con* [id number] IMPRESSION: 1. Mild submucosal enhancement of the small bowel with fluid distended small bowel loops suspicious for small bowel enteritis. No evidence of high-grade obstruction. 2. Air and fluid distention of the transverse colon unchanged since 09/23/2024. Decompressed LEFT colon and sigmoid colon. 3. Prior cholecystectomy. 4. Gastritis and duodenitis. 5. Few small nodular opacities in the lung bases may be infectious or inflammatory new from previous. Metastatic disease not excluded considering history -Stool studies -CMV studies -ESR 56, CRP 193, Pro-Jitendra 5.29, blood cultures pending -Continue Flagyl, -aztreonam -Possibly viral -Possible radiation enteritis, will consider steroids based on clinical progress Influenza, Tamiflu Dehydration, off fluids Lung cancer History of pulmonary embolism continue Eliquis Chronic pain, continue oxycodone, morphine Physical deconditioning, protein calorie malnutrition, cancer cachexia -Consult dietary - Full code Eliquis for DVT prophylaxis Plan for today moved to medical floors, continue IV antibiotics, will hold off on diuresis, as patient appears euvolemic, PT OT, will try to get him up into a chair he does have a risk of orthostatic hypotension, and has had this in the past, will monitor monitored closely monitor heart rates, follow cultures, continue Tamiflu PDMP PDMP Reviewed: Last Reviewed 10/27/24 14:21 by Larry Armendariz MD Attestations 2 Medical Necessity Statement*: Patient requires hospitalization for acute hypoxic respiratory failure, pneumonia, influenza, fluid overload, enteritis, A-fib, deconditioning Diagnoses Atrial fibrillation with RVR I48.91 Malignant neoplasm of overlapping sites of right lung C34.81 Influenza J11.1 Diarrhea R19.7 Enteritis K52.9 Acute on chronic hypoxic respiratory failure J96.21 Cancer cachexia R64 Physical deconditioning R53.81 Protein calorie malnutrition E46
--- NOTE | 2024-10-31 14:39 | PC.SOCIAL ---
IMM Update: pg 2 of IMM updated and reviewed w/ patient. Copy provided and copy dated, initialed and placed in chart.
[2024-10-31] MEDS: ondansetron 2 mg/ML SDV 2 mL 4 MG IVP (17:49)
[2024-10-31 20:50] LABS: Vancomycin Trough 17.2 ug/mL (10-15)
--- NOTE | 2024-10-31 22:32 | PC.NURSE ---
Transfer Patient transferred to [facility] via wheelchair. All vital signs stable and all belongings with patient upon move. Receiving nurse at bedside.
--- NOTE | 2024-10-31 22:33 | PC.NURSE ---
Insert orlando catheter Patient attempting to urinate with no success. No urine output documented since removal of the orlando catheter. Bladder scan revealed 130 ml urine retaining in the bladder. Dr. Turcios notified; order received to insert orlando catheter again. Patient request to insert the orlando after administration of his scheduled morphine. Receiving nurse aware of insertion order.
[2024-11-01] VITALS (12 sets, daily range): BP systolic 97–132; BP diastolic 48–68; PULSE 60–119; RESP 17–20; TEMP 36.4–36.8; O2SAT 88–96; BMI 19.8
[2024-11-01] MEDS: metroNIDAZOLE IV 500 MG/100 ML PREMIX 100 MG IV ×3 (01:14→17:35)
[2024-11-01] MEDS: midodrine 5 mg TABLET 10 MG PO ×3 (01:15→17:34)
[2024-11-01] MEDS: aztreonam 1,000 MG in sodium chloride 0.9% (plus) 50 ML 100 MG IV ×2 (04:34→18:38)
[2024-11-01 05:14] LABS: Basophils % 0.5 %; Eosinophils % 1.6 %; Hematocrit 31.8 % (37-53); Lymphocytes # 0.3 10^3/uL (0.8-4.8); Lymphocytes % 15.9 %; Mean Corpuscular HGB Conc 29.9 g/dL (30-55); Mean Corpuscular Hemoglobin 28.8 pg (27-33); Mean Corpuscular Volume 96.4 fl (82-101); Mean Platelet Volume 9.3 fL (7.4-10.4); Monocytes # 0.3 10^3/uL (0.2-0.9); Monocytes % 14.3 %; Neutrophils # 1.22 10^3/uL (1.8-7.7); Neutrophils % 67.2 %; Nucleated Red Blood Cells % 0 %; Platelet Count 221 10^3/cmm (157-399); White Blood Count 1.82 10^3/uL (3.29-11.43)
[2024-11-01 05:38] LABS: Alanine Aminotransferase 9 U/L (0-41); Albumin Level 2.8 g/dL (3.5-5.2); Alkaline Phosphatase 78 U/L (40-130); Anion Gap 11.5 (5-19); Aspartate Amino Transferase 28 U/L (0-40); Blood Urea Nitrogen 12 mg/dL (8-23); C Reactive Protein 33.2 mg/L (0.0-4.9); Calcium 8.1 mg/dL (8.5-10.5); Carbon Dioxide 29 mmol/L (22-29); Chloride 104 mmol/L (98-107); Creatinine Clr Calc Pharmacy 86.1506; Globulin 2.5 g/dL (1.3-4.6); Glomerular Filtration Rate 111.5 mL/min (90-130); Glucose 90 mg/dL (65-115); Magnesium 1.7 mg/dL (1.7-2.3); Osmolality Calculated 291 mOsm/kg (285-295); Phosphorus 2.9 mg/dL (2.5-4.5); Potassium 3.5 mmol/L (3.5-5.1); Sodium 141 mmol/L (136-145); Total Bilirubin 0.2 mg/dL (0.15-1.2); Total Protein 5.3 g/dL (6.6-8.7)
[2024-11-01 05:41] LABS: Slide Review Slide Review Perform
[2024-11-01 05:51] LABS: NT Pro B Type Natriuretic Pept 1323 pg/mL (0-125); Procalcitonin 0.27 ng/mL (0-0.5)
[2024-11-01] MEDS: budesonide 0.5 mg/2 mL Neb INHALATION ×2 (07:37→20:21)
[2024-11-01] MEDS: ipratropium-albuterol 3 mL Neb INHALATION (07:37)
[2024-11-01] MEDS: apixaban 5 mg Tablet PO ×2 (08:00→17:34)
[2024-11-01] MEDS: clopidogrel 75 mg Tablet PO (08:00)
[2024-11-01] MEDS: escitalopram 10 mg Tablet PO (08:01)
[2024-11-01] MEDS: amiodarone 200 mg Tablet 400 MG PO ×2 (08:01→17:34)
[2024-11-01] MEDS: VANCOMYCIN ADD-Vantage 1,000 MG in 0.9% NaCl ADD-Vantage 250 ML 250 MG IV ×2 (08:01→20:29)
[2024-11-01] MEDS: oseltamivir phosphate 75 mg Capsule PO ×2 (08:01→17:34)
[2024-11-01] MEDS: morphine ER (12 HR) 30 mg tablet 60 MG PO ×2 (11:13→21:32)
--- NOTE | 2024-11-01 11:50 | PC.NURSE ---
This RN comes onto shift. Pt oxygen saturation noted to be 83% on 2L/NC. Increased to 4L/NC to maintain at 88%. Pt hr noted to be elevated into 120s. Placed onto telemetry where pt is 120-150 a-fib rvr. Notified Dr. Armendariz. Amiodarone bolus and drip ordered - PO put on hold. Pt converts back into a-fib with rate of 80-[address] within [address] Armendariz. Amiodarone drip on hold for now.
[2024-11-01] MEDS: pantoprazole 40 mg SDV IVP (14:08)
--- NOTE | 2024-11-01 15:54 | P.PN_ITS ---
Subjective 2 Subjective: Patient was seen this morning, family numbers at bedside, his daughters is returning to [place], no acute events overnight, this morning he did develop A-fib with RVR, with exertion, currently converted back to normal sinus rhythm, denies any chest pain, palpitations, no fevers, no chills, no nausea, vomiting Vitals/I&O/Wt Last Vital Signs Temp 98.2 F 11/01/24 10:52 Pulse 79 11/01/24 10:52 Resp 17 11/01/24 10:52 BP 107/48 11/01/24 10:52 Pulse Ox 94 11/01/24 10:52 O2 Del Method Nasal Cannula 11/01/24 10:52 O2 Flow Rate 4 11/01/24 07:37 11/01/24 11/01/24 11/01/24 06:59 14:59 22:59 Intake Total 550 / 1670 1310.000 / 1310.000 Output Total 200 / 200 Balance 550 / 987 1110.000 / 1110.000 Weight last 48 hrs Weight 64.41 kg Weight 64.274 kg Physical Exam 2 Const: COMMON NORMALS: no acute distress and patient oriented x3 Neck/C-Spine: COMMON NORMALS: no JVD Resp: COMMON NORMALS: normal respiratory effort, No retractions and No use of accessory muscles AUSCULTATION: crackles and wheezes Cardio: COMMON NORMALS: no JVD, regular rate, regular rhythm, S1 normal heart sound present and S2 normal heart sound present RATE: regular rate RHYTHM: regular rhythm HEART SOUNDS: S1 normal heart sound present and S2 normal heart sound present GI: COMMON NORMALS: Normal to inspection, nondistended, normoactive bowel sounds present and non-tender Extremity: COMMON NORMALS: no pedal edema Neuro: COMMON NORMALS: patient oriented x3 Psych: COMMON NORMALS: mental status grossly normal Urinary Catheter Management: Wise: Cath Placed During This Visit: yes Reason for Continuing Indwelling Catheter: Accurate Measurement of Urinary Output in Critically Ill Patients Urinary Catheter Date of Insertion: 10/31/24 Urinary Catheter Time of Insertion: 23:11 Data 11/01/24 04:57 11/01/24 04:57 Micro: Microbiology 10/27/24 15:07 Blood Culture - Final Blood NO GROWTH AFTER 5 DAYS 10/27/24 15:29 Blood Culture - Final Blood NO GROWTH AFTER 5 DAYS A&P Assessment and plan (1) Atrial fibrillation with RVR: (2) Malignant neoplasm of overlapping sites of right lung: (3) Influenza: (4) Diarrhea: (5) Enteritis: (6) Acute on chronic hypoxic respiratory failure: (7) Cancer cachexia: (8) Physical deconditioning: (9) Protein calorie malnutrition: Plan A-fib with RVR -Developed A-fib with RVR, converted back to normal sinus rhythm continue amiodarone 4 oh twice daily -Continue Eliquis Acute hypoxic respiratory failure -Concerns for pneumonia versus fluid overload -influenza -CT chest CT/CT chest wo con [id number] IMPRESSION: 1. Masslike consolidation with air bronchograms in the posterior right upper lobe/superior portion of the right lower lobe has moderately worsened compared to 09/23/2024. Difficult to measure in its entirety. Cystic component posteriorly measuring 2.7 cm craniocaudal is unchanged. May represent reported history of lung cancer. Superimposed infectious/inflammatory etiology not excluded. 2. New/more prominent focal patchy ground-glass opacity in the peripheral left upper lobe. May represent metastatic disease, infectious or inflammatory etiology. 3. Small right pleural effusion. -Aspiration precautions, dysphagia level 6 diet -on IV abx -vancomycin -aztreonam -tamiflu Enteritis CT/CT abdomen pelvis w con* [id number] IMPRESSION: 1. Mild submucosal enhancement of the small bowel with fluid distended small bowel loops suspicious for small bowel enteritis. No evidence of high-grade obstruction. 2. Air and fluid distention of the transverse colon unchanged since 09/23/2024. Decompressed LEFT colon and sigmoid colon. 3. Prior cholecystectomy. 4. Gastritis and duodenitis. 5. Few small nodular opacities in the lung bases may be infectious or inflammatory new from previous. Metastatic disease not excluded considering history -Stool studies -CMV studies -ESR 56, CRP 193, Pro-Jitendra 5.29, blood cultures pending -Continue Flagyl, -aztreonam -Possibly viral -Possible radiation enteritis, will consider steroids based on clinical progress Influenza, Tamiflu Dehydration, off fluids Lung cancer History of pulmonary embolism continue Eliquis Chronic pain, continue oxycodone, morphine Physical deconditioning, protein calorie malnutrition, cancer cachexia -Consult dietary DNR/DNI Eliquis for DVT prophylaxis Plan for today moved to medical floors, continue IV antibiotics, she appears euvolemic, hold off on further doses of Lasix, PDMP PDMP Reviewed: Last Reviewed 10/27/24 14:21 by Larry Armendariz MD Attestations 2 Medical Necessity Statement*: Patient requires hospitalization for acute respiratory failure, enteritis, A- fib, influenza Diagnoses Atrial fibrillation with RVR I48.91 Malignant neoplasm of overlapping sites of right lung C34.81 Influenza J11.1 Diarrhea R19.7 Enteritis K52.9 Acute on chronic hypoxic respiratory failure J96.21 Cancer cachexia R64 Physical deconditioning R53.81 Protein calorie malnutrition E46
[2024-11-01 17:20] LABS: Blood Urea Nitrogen 14 mg/dL (8-23); Calcium 8.3 mg/dL (8.5-10.5); Carbon Dioxide 30 mmol/L (22-29); Chloride 106 mmol/L (98-107); Creatinine Clr Calc Pharmacy 86.2167; Glomerular Filtration Rate 95.6 mL/min (90-130); Glucose 122 mg/dL (65-115); Osmolality Calculated 298 mOsm/kg (285-295); Sodium 143 mmol/L (136-145)
[2024-11-02] VITALS (9 sets, daily range): BP systolic 101–113; BP diastolic 58–69; PULSE 64–102; RESP 16–18; TEMP 36.4–37.1; O2SAT 90–99; BMI 26.9
[2024-11-02] MEDS: metroNIDAZOLE IV 500 MG/100 ML PREMIX 100 MG IV ×3 (00:15→16:06)
[2024-11-02] MEDS: midodrine 5 mg TABLET 10 MG PO ×3 (00:15→16:01)
[2024-11-02] MEDS: aztreonam 1,000 MG in sodium chloride 0.9% (plus) 50 ML 100 MG IV ×2 (04:18→15:57)
[2024-11-02 05:35] LABS: Basophils % 0.4 %; Eosinophils # 0.1 10^3/uL (0.0-0.8); Eosinophils % 2.4 %; Hematocrit 29.4 % (37-53); Lymphocytes # 0.4 10^3/uL (0.8-4.8); Lymphocytes % 13.9 %; Mean Corpuscular Hemoglobin 30.1 pg (27-33); Mean Corpuscular Volume 97.4 fl (82-101); Mean Platelet Volume 9.4 fL (7.4-10.4); Monocytes # 0.4 10^3/uL (0.2-0.9); Monocytes % 13.9 %; Neutrophils # 1.73 10^3/uL (1.8-7.7); Nucleated Red Blood Cells % 0 %; Platelet Count 252 10^3/cmm (157-399); Red Blood Count 3.02 10^6/uL (3.85-5.65); Red Cell Distribution Width 14.2 % (12.1-15.1); White Blood Count 2.51 10^3/uL (3.29-11.43)
[2024-11-02 06:03] LABS: Alanine Aminotransferase 7 U/L (0-41); Albumin Level 2.6 g/dL (3.5-5.2); Alkaline Phosphatase 68 U/L (40-130); Anion Gap 11.5 (5-19); Aspartate Amino Transferase 17 U/L (0-40); Blood Urea Nitrogen 12 mg/dL (8-23); C Reactive Protein 20.2 mg/L (0.0-4.9); Carbon Dioxide 28 mmol/L (22-29); Chloride 106 mmol/L (98-107); Creatinine Clr Calc Pharmacy 69.5119; Globulin 2.4 g/dL (1.3-4.6); Glomerular Filtration Rate 95.6 mL/min (90-130); Glucose 97 mg/dL (65-115); Magnesium 1.6 mg/dL (1.7-2.3); Osmolality Calculated 294 mOsm/kg (285-295); Phosphorus 3.3 mg/dL (2.5-4.5); Potassium 3.5 mmol/L (3.5-5.1); Sodium 142 mmol/L (136-145); Total Bilirubin 0.2 mg/dL (0.15-1.2)
[2024-11-02 06:07] LABS: NT Pro B Type Natriuretic Pept 1710 pg/mL (0-125); Procalcitonin 0.22 ng/mL (0-0.5)
[2024-11-02] MEDS: budesonide 0.5 mg/2 mL Neb INHALATION ×2 (08:29→19:27)
[2024-11-02] MEDS: ipratropium-albuterol 3 mL Neb INHALATION ×2 (08:29→19:18)
[2024-11-02] MEDS: oseltamivir phosphate 75 mg Capsule PO ×2 (09:50→16:47)
[2024-11-02] MEDS: morphine ER (12 HR) 30 mg tablet 60 MG PO ×2 (09:50→22:28)
[2024-11-02] MEDS: amiodarone 200 mg Tablet 400 MG PO ×2 (09:51→16:47)
[2024-11-02] MEDS: escitalopram 10 mg Tablet PO (09:51)
[2024-11-02] MEDS: apixaban 5 mg Tablet PO ×2 (09:51→16:47)
[2024-11-02] MEDS: clopidogrel 75 mg Tablet PO (09:51)
--- NOTE | 2024-11-02 14:24 | P.PN_ITS ---
Subjective 2 Subjective: Patient was seen this morning, he is alert awake, following all commands, denies any fevers, no chills, no cough, he did work with physical therapy yesterday plans on working with physical therapy today, does report generalized weakness Vitals/I&O/Wt Last Vital Signs Temp 98.1 F 11/02/24 11:00 Pulse 102 H 11/02/24 11:00 Resp 16 11/02/24 11:00 BP 106/69 11/02/24 11:00 Pulse Ox 91 11/02/24 11:00 O2 Del Method Nasal Cannula 11/02/24 11:00 O2 Flow Rate 4 11/02/24 08:31 11/01/24 11/02/24 11/02/24 22:59 06:59 14:59 Intake Total 640 / 1950.000 150 / 2100.000 290 / 290 Output Total 100 / 300 200 / 500 Balance 540 / 1650.000 -50 / 1600.000 290 / 290 Weight last 48 hrs Weight 64.546 kg Weight 64.41 kg Physical Exam 2 Const: COMMON NORMALS: no acute distress and patient oriented x3 Resp: COMMON NORMALS: normal respiratory effort, No retractions, No use of accessory muscles and clear to auscultation bilaterally AUSCULTATION: clear to auscultation bilaterally Cardio: COMMON NORMALS: regular rate, S1 normal heart sound present and S2 normal heart sound present RATE: regular rate RHYTHM: abnormal rhythm H EART SOUNDS: S1 normal heart sound present and S2 normal heart sound present GI: COMMON NORMALS: Normal to inspection, nondistended, normoactive bowel sounds present and non-tender Extremity: COMMON NORMALS: no pedal edema Neuro: COMMON NORMALS: patient oriented x3 Psych: COMMON NORMALS: mental status grossly normal Urinary Catheter Management: Wise: Cath Placed During This Visit: yes, but has since been removed by the nurse Reason for Continuing Indwelling Catheter: Decision to DC Catheter Urinary Catheter Date of Insertion: 10/31/24 Urinary Catheter Time of Insertion: 23:11 Date Urinary Catheter Removed: 11/02/24 Time Urinary Catheter Discontinued: 09:33 Data 11/02/24 04:57 11/02/24 04:57 Micro: Microbiology 10/27/24 15:07 Blood Culture - Final Blood NO GROWTH AFTER 5 DAYS 10/27/24 15:29 Blood Culture - Final Blood NO GROWTH AFTER 5 DAYS A&P Assessment and plan (1) Atrial fibrillation with RVR: (2) Malignant neoplasm of overlapping sites of right lung: (3) Influenza: (4) Diarrhea: (5) Enteritis: (6) Acute on chronic hypoxic respiratory failure: (7) Cancer cachexia: (8) Physical deconditioning: (9) Protein calorie malnutrition: Plan A-fib with RVR -Developed A-fib with RVR, converted back to normal sinus rhythm continue amiodarone 400mg twice daily -Continue Eliquis Acute hypoxic respiratory failure -Concerns for pneumonia versus fluid overload -influenza -CT chest CT/CT chest wo con [id number] IMPRESSION: 1. Masslike consolidation with air bronchograms in the posterior right upper lobe/superior portion of the right lower lobe has moderately worsened compared to 09/23/2024. Difficult to measure in its entirety. Cystic component posteriorly measuring 2.7 cm craniocaudal is unchanged. May represent reported history of lung cancer. Superimposed infectious/inflammatory etiology not excluded. 2. New/more prominent focal patchy ground-glass opacity in the peripheral left upper lobe. May represent metastatic disease, infectious or inflammatory etiology. 3. Small right pleural effusion. -Aspiration precautions, dysphagia level 6 diet -on IV abx -vancomycin stopped -aztreonam -tamiflu Enteritis CT/CT abdomen pelvis w con* [id number] IMPRESSION: 1. Mild submucosal enhancement of the small bowel with fluid distended small bowel loops suspicious for small bowel enteritis. No evidence of high-grade obstruction. 2. Air and fluid distention of the transverse colon unchanged since 09/23/2024. Decompressed LEFT colon and sigmoid colon. 3. Prior cholecystectomy. 4. Gastritis and duodenitis. 5. Few small nodular opacities in the lung bases may be infectious or inflammatory new from previous. Metastatic disease not excluded considering history -Stool studies -CMV studies -ESR 56, CRP 193, Pro-Jitendra 5.29, blood cultures pending -Continue Flagyl, -aztreonam -Possibly viral -Possible radiation enteritis, will consider steroids based on clinical progress Influenza, Tamiflu Dehydration, off fluids Lung cancer History of pulmonary embolism continue Eliquis Chronic pain, continue oxycodone, morphine Physical deconditioning, protein calorie malnutrition, cancer cachexia -Consult dietary DNR/DNI Eliquis for DVT prophylaxis Plan for today moved to medical floors, , hold off Lasix today monitor urine output monitor creatinine remove Wise catheter continue IV antibiotics PT OT plan discharge in the next 24 to 48 hours PDMP PDMP Reviewed: Last Reviewed 10/27/24 14:21 by Larry Armendariz MD Attestations 2 Medical Necessity Statement*: Patient requires hospitalization for acute hypoxic respiratory failure, atrial fibrillation, enteritis, influenza Diagnoses Atrial fibrillation with RVR I48.91 Malignant neoplasm of overlapping sites of right lung C34.81 Influenza J11.1 Diarrhea R19.7 Enteritis K52.9 Acute on chronic hypoxic respiratory failure J96.21 Cancer cachexia R64 Physical deconditioning R53.81 Protein calorie malnutrition E46
--- NOTE | 2024-11-02 14:40 | PC.SOCIAL ---
IMM UPDATED IMM dated and initialed, copy placed in chart and copy given to patient
[2024-11-02] MEDS: pantoprazole 40 mg SDV IVP (16:00)
[2024-11-03] VITALS (13 sets, daily range): BP systolic 109–146; BP diastolic 64–77; PULSE 62–75; RESP 15–22; TEMP 36.5–36.8; O2SAT 90–94
[2024-11-03] MEDS: midodrine 5 mg TABLET 10 MG PO ×3 (00:21→15:19)
[2024-11-03] MEDS: metroNIDAZOLE IV 500 MG/100 ML PREMIX 100 MG IV ×2 (00:22→09:08)
[2024-11-03] MEDS: aztreonam 1,000 MG in sodium chloride 0.9% (plus) 50 ML 100 MG IV ×2 (04:15→15:18)
[2024-11-03 05:38] LABS: Basophils % 0.3 %; Eosinophils % 0.9 %; Hematocrit 29.8 % (37-53); Lymphocytes # 0.3 10^3/uL (0.8-4.8); Lymphocytes % 9.4 %; Mean Corpuscular HGB Conc 30.9 g/dL (30-55); Mean Corpuscular Volume 97.1 fl (82-101); Mean Platelet Volume 9.1 fL (7.4-10.4); Monocytes # 0.3 10^3/uL (0.2-0.9); Monocytes % 9.7 %; Neutrophils # 2.63 10^3/uL (1.8-7.7); Neutrophils % 79.4 %; Nucleated Red Blood Cells % 0 %; Platelet Count 276 10^3/cmm (157-399); Red Blood Count 3.07 10^6/uL (3.85-5.65); Red Cell Distribution Width 14.1 % (12.1-15.1); White Blood Count 3.31 10^3/uL (3.29-11.43)
[2024-11-03 06:02] LABS: Anion Gap 11.8 (5-19); Blood Urea Nitrogen 12 mg/dL (8-23); C Reactive Protein 17.4 mg/L (0.0-4.9); Calcium 8.1 mg/dL (8.5-10.5); Carbon Dioxide 28 mmol/L (22-29); Chloride 104 mmol/L (98-107); Glomerular Filtration Rate 111.5 mL/min (90-130); Glucose 98 mg/dL (65-115); Osmolality Calculated 290 mOsm/kg (285-295); Potassium 3.8 mmol/L (3.5-5.1); Sodium 140 mmol/L (136-145)
[2024-11-03 06:18] LABS: NT Pro B Type Natriuretic Pept 1990 pg/mL (0-125)
[2024-11-03] MEDS: budesonide 0.5 mg/2 mL Neb INHALATION ×2 (08:52→21:10)
[2024-11-03] MEDS: ipratropium-albuterol 3 mL Neb INHALATION (08:52)
[2024-11-03] MEDS: morphine ER (12 HR) 30 mg tablet 60 MG PO ×2 (09:04→22:22)
[2024-11-03] MEDS: apixaban 5 mg Tablet PO ×2 (09:04→17:45)
[2024-11-03] MEDS: clopidogrel 75 mg Tablet PO (09:05)
[2024-11-03] MEDS: oseltamivir phosphate 75 mg Capsule PO (09:05)
[2024-11-03] MEDS: escitalopram 10 mg Tablet PO (09:05)
[2024-11-03] MEDS: amiodarone 200 mg Tablet 400 MG PO ×2 (09:05→17:45)
[2024-11-03] MEDS: oxyCODONE-APAP 10-325 mg Tablet 1 TAB PO (11:06)
--- NOTE | 2024-11-03 11:24 | PC.NURSE ---
pt educated on risk of not wearing scd's, verbalized understanding.
[2024-11-03] MEDS: pantoprazole 40 mg SDV IVP (15:18)
--- NOTE | 2024-11-03 15:46 | P.PN_ITS ---
Subjective 2 Subjective: Patient was seen this morning, he complains of weakness, fatigue, no lightheadedness, dizziness, no nausea, vomiting does report persistent shortness of breath and cough Vitals/I&O/Wt Last Vital Signs Temp 97.7 F 11/03/24 15:27 Pulse 66 11/03/24 15:27 Resp 16 11/03/24 15:27 BP 126/68 11/03/24 15:27 Pulse Ox 93 11/03/24 15:27 O2 Del Method Nasal Cannula 11/03/24 15:27 O2 Flow Rate 3 11/03/24 11:03 11/03/24 11/03/24 11/03/24 06:59 14:59 22:59 Intake Total 450 / 1590 390 / 390 Output Total 200 / 400 Balance 250 / 1190 390 / 390 Weight last 48 hrs Weight 67.245 kg Weight 64.546 kg Physical Exam 2 Const: COMMON NORMALS: no acute distress and patient oriented x3 Resp: COMMON NORMALS: normal respiratory effort, No retractions and No use of accessory muscles AUSCULTATION: wheezes Cardio: COMMON NORMALS: regular rate, regular rhythm, S1 normal heart sound present and S2 normal heart sound present RATE: regular rate RHYTHM: r egular rhythm HEART SOUNDS: S1 normal heart sound present and S2 normal heart sound present GI: COMMON NORMALS: Normal to inspection, nondistended, normoactive bowel sounds present and non-tender Extremity: COMMON NORMALS: no pedal edema Neuro: COMMON NORMALS: patient oriented x3 Psych: COMMON NORMALS: mental status grossly normal Urinary Catheter Management: Wise: Cath Placed During This Visit: yes, but has since been removed by the nurse Reason for Continuing Indwelling Catheter: Decision to DC Catheter Urinary Catheter Date of Insertion: 10/31/24 Urinary Catheter Time of Insertion: 23:11 Date Urinary Catheter Removed: 11/02/24 Time Urinary Catheter Discontinued: 09:33 Data 11/03/24 05:19 11/03/24 05:19 A&P Assessment and plan (1) Atrial fibrillation with RVR: (2) Malignant neoplasm of overlapping sites of right lung: (3) Influenza: (4) Diarrhea: (5) Enteritis: (6) Acute on chronic hypoxic respiratory failure: (7) Cancer cachexia: (8) Physical deconditioning: (9) Protein calorie malnutrition: Plan A-fib with RVR -Developed A-fib with RVR, converted back to normal sinus rhythm continue amiodarone 400mg twice daily -Continue Eliquis Acute hypoxic respiratory failure -Concerns for pneumonia versus fluid overload -influenza -CT chest CT/CT chest wo con [id number] IMPRESSION: 1. Masslike consolidation with air bronchograms in the posterior right upper lobe/superior portion of the right lower lobe has moderately worsened compared to 09/23/2024. Difficult to measure in its entirety. Cystic component posteriorly measuring 2.7 cm craniocaudal is unchanged. May represent reported history of lung cancer. Superimposed infectious/inflammatory etiology not excluded. 2. New/more prominent focal patchy ground-glass opacity in the peripheral left upper lobe. May represent metastatic disease, infectious or inflammatory etiology. 3. Small right pleural effusion. Plan -Aspiration precautions, dysphagia level 6 diet -on IV abx -vancomycin stopped -aztreonam -tamiflu -Hold Lasix for today Enteritis CT/CT abdomen pelvis w con* [id number] IMPRESSION: 1. Mild submucosal enhancement of the small bowel with fluid distended small bowel loops suspicious for small bowel enteritis. No evidence of high-grade obstruction. 2. Air and fluid distention of the transverse colon unchanged since 09/23/2024. Decompressed LEFT colon and sigmoid colon. 3. Prior cholecystectomy. 4. Gastritis and duodenitis. 5. Few small nodular opacities in the lung bases may be infectious or inflammatory new from previous. Metastatic disease not excluded considering history -Stool studies -CMV studies -ESR 56, CRP 193, Pro-Jitendra 5.29, blood cultures pending -Continue Flagyl, -aztreonam -Possibly viral -Possible radiation enteritis, will consider steroids based on clinical progress Influenza, Tamiflu Dehydration, off fluids Lung cancer History of pulmonary embolism continue Eliquis Chronic pain, continue oxycodone, morphine Physical deconditioning, protein calorie malnutrition, cancer cachexia -Consult dietary DNR/DNI Eliquis for DVT prophylaxis Plan for today continue IV antibiotics, continue Tamiflu, continue amiodarone, continue Eliquis PDMP PDMP Reviewed: Last Reviewed 10/27/24 14:21 by Larry Armendariz MD Attestations 2 Medical Necessity Statement*: Patient requires hospitalization for A-fib, acute respiratory failure, influenza Diagnoses Atrial fibrillation with RVR I48.91 Malignant neoplasm of overlapping sites of right lung C34.81 Influenza J11.1 Diarrhea R19.7 Enteritis K52.9 Acute on chronic hypoxic respiratory failure J96.21 Cancer cachexia R64 Physical deconditioning R53.81 Protein calorie malnutrition E46
[2024-11-03] MEDS: midodrine 5 mg TABLET PO (22:22)
[2024-11-04] VITALS (9 sets, daily range): BP systolic 138–154; BP diastolic 75–82; PULSE 61–79; RESP 15–18; TEMP 36.3–37.2; O2SAT 84–97; BMI 29.5
[2024-11-04] MEDS: levoFLOXacin 750 mg Tablet PO (05:27)
[2024-11-04 06:47] LABS: Basophils % 0.3 %; Eosinophils % 0.9 %; Hematocrit 28.7 % (37-53); Lymphocytes # 0.3 10^3/uL (0.8-4.8); Lymphocytes % 8.5 %; Mean Corpuscular HGB Conc 31.7 g/dL (30-55); Mean Corpuscular Hemoglobin 30.3 pg (27-33); Mean Corpuscular Volume 95.7 fl (82-101); Mean Platelet Volume 9.2 fL (7.4-10.4); Monocytes # 0.3 10^3/uL (0.2-0.9); Monocytes % 8.2 %; Neutrophils # 2.58 10^3/uL (1.8-7.7); Neutrophils % 81.8 %; Nucleated Red Blood Cells % 0 %; Platelet Count 279 10^3/cmm (157-399); Red Cell Distribution Width 14.3 % (12.1-15.1); White Blood Count 3.16 10^3/uL (3.29-11.43)
[2024-11-04 07:11] LABS: Blood Urea Nitrogen 11 mg/dL (8-23); C Reactive Protein 14.5 mg/L (0.0-4.9); Calcium 8.2 mg/dL (8.5-10.5); Carbon Dioxide 29 mmol/L (22-29); Chloride 102 mmol/L (98-107); Creatinine Clr Calc Pharmacy 72.5326; Glomerular Filtration Rate 133.2 mL/min (90-130); Glucose 80 mg/dL (65-115); Osmolality Calculated 286 mOsm/kg (285-295); Sodium 139 mmol/L (136-145)
[2024-11-04 07:14] LABS: NT Pro B Type Natriuretic Pept 3150 pg/mL (0-125)
[2024-11-04 07:16] LABS: Anion Gap 11.9 (5-19); Potassium 3.9 mmol/L (3.5-5.1)
[2024-11-04] MEDS: budesonide 0.5 mg/2 mL Neb INHALATION (08:55)
[2024-11-04] MEDS: ipratropium-albuterol 3 mL Neb INHALATION (08:55)
[2024-11-04] MEDS: clopidogrel 75 mg Tablet PO (09:15)
[2024-11-04] MEDS: apixaban 5 mg Tablet PO (09:15)
[2024-11-04] MEDS: escitalopram 10 mg Tablet PO (09:15)
[2024-11-04] MEDS: midodrine 5 mg TABLET PO (09:15)
[2024-11-04] MEDS: amiodarone 200 mg Tablet 400 MG PO (09:15)
--- NOTE | 2024-11-04 10:53 | PM.DCS ---
Discharge Providers Date of Admission: 10/27/24 12:56 Date of Discharge: November 04, 2024 Attending Provider at Admission: Larry Armendariz MD Attending Provider at Discharge: Larry Armendariz MD Primary Care Provider: Liya Huerta MD Diagnoses at Discharge Discharge Diagnosis (1) Atrial fibrillation with RVR: Status: Acute (2) Malignant neoplasm of overlapping sites of right lung: Status: Acute (3) Influenza: Status: Acute (4) Diarrhea: Status: Acute (5) Enteritis: Status: Acute (6) Acute on chronic hypoxic respiratory failure: Status: Acute (7) Cancer cachexia: Status: Acute (8) Physical deconditioning: Status: Acute (9) Protein calorie malnutrition: Status: Acute Reason for Visit Reason for Visit: flu like symptoms Hospital Course Hospital Course Karthik Gordon is a 69 year old male with a past medical history of 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 Currently patient is alert oriented x 3, following all commands, he is complaint was is that he has been having diarrhea for the last 24 hours, also lower abdominal pain, no nausea, no vomiting does have decreased appetite, no fevers, no chills his last treatment for radiation was on Thursday. Denies any bloody or black stools, no hematemesis, in the emergency room was found to have A-fib RVR denies a history of atrial fibrillation, he also reports fatigue, malaise Patient was admitted to [facility] for A-fib with RVR, received amiodarone drip, transition to p.o. amiodarone, will be discharged on p.o. amiodarone, Eliquis Patient was admitted for acute hypoxic respiratory failure secondary to pneumonia, fluid overload, influenza, received Tamiflu, broad-spectrum antibiotic therapy, diuresis overall clinically improved. Will be discharged on 5 remaining days of Levaquin, albuterol, resume home Lasix with a close follow-up with primary care provider as outpatient For his enteritis, received IV antibiotics, overall clinically proved, no diarrhea on discharge For his physical deconditioning, physical deconditioning cancer cachexia received inpatient physical therapy Patient is to follow-up with oncology as outpatient Physical Exam Const: COMMON NORMALS: no acute distress and patient oriented x3 Resp: COMMON NORMALS: normal respiratory effort, No retractions, No use of accessory muscles and clear to auscultation bilaterally AUSCULTATION: clear to auscultation bilaterally Cardio: COMMON NORMALS: regular rate, regular rhythm, S1 normal heart sound present and S2 normal heart sound present RATE: regular rate RHYTHM: regular rhythm HEART SOUNDS: S1 normal heart sound present and S2 normal heart sound present GI: COMMON NORMALS: Normal to inspection, nondistended, normoactive bowel sounds present and non-tender Extremity: COMMON NORMALS: no pedal edema Neuro: COMMON NORMALS: patient oriented x3 Psych: COMMON NORMALS: mental status grossly normal Urinary Catheter Management: Wise: Cath Placed During This Visit: yes, but has since been removed by the nurse Reason for Continuing Indwelling Catheter: Decision to DC Catheter Urinary Catheter Date of Insertion: 10/31/24 Urinary Catheter Time of Insertion: 23:11 Date Urinary Catheter Removed: 11/02/24 Time Urinary Catheter Discontinued: 09:33 Discharge Data Studies Completed and Pending Completed Studies During Hospitalization Category Date Time Status CT abdomen pelvis w con* [id number] Stat Cat Scan 10/27/24 09:[address] chest wo con [id number] Routine Cat Scan 10/29/24 09:33 Completed XR chest 1V portable [id number] Routine Exams 10/28/24 14:59 Completed XR chest 1V portable [id number] Routine Exams 10/31/24 07:00 Completed XR chest 1V portable [id number] Stat Exams 10/27/24 09:37 Completed Pending at discharge Category Date Time Status Basic Metabolic Panel AM LABS Lab 11/05/24 04:00 Ordered C Reactive Protein AM LABS Lab 11/05/24 04:00 Ordered Complete Blood Count w/Auto AM LABS Lab 11/05/24 04:00 Ordered NT Pro B Type Natriuretic Pept QAM Lab 11/05/24 06:00 Ordered Salmonella / Shigella / Campy Routine Lab 10/27/24 14:44 Ordered Sputum Culture and Gram Stain Stat Lab 10/29/24 08:11 Uncollected Radiology Impressions Abdomen/Pelvis CT 10/27/24 09:51 IMPRESSION: 1. Mild submucosal enhancement of the small bowel with fluid distended small bowel loops suspicious for small bowel enteritis. No evidence of high-grade obstruction. 2. Air and fluid distention of the transverse colon unchanged since 09/23/2024. Decompressed LEFT colon and sigmoid colon. 3. Prior cholecystectomy. 4. Gastritis and duodenitis. 5. Few small nodular opacities in the lung bases may be infectious or inflammatory new from previous. Metastatic disease not excluded considering history Chest CT 10/29/24 09:33 IMPRESSION: 1. Masslike consolidation with air bronchograms in the posterior right upper lobe/superior portion of the right lower lobe has moderately worsened compared to 09/23/2024. Difficult to measure in its entirety. Cystic component posteriorly measuring 2.7 cm craniocaudal is unchanged. May represent reported history of lung cancer. Superimposed infectious/inflammatory etiology not excluded. 2. New/more prominent focal patchy ground-glass opacity in the peripheral left upper lobe. May represent metastatic disease, infectious or inflammatory etiology. 3. Small right pleural effusion. Chest X-Ray 10/31/24 07:00 IMPRESSION: Complex abnormality in the right lung which highly likely represents neoplastic involvement of the right hilum and postobstructive pneumonitis with increasing atelectasis and consolidation in the superior right lower lung. Laboratory Results WBC 3.16 10^3/uL (3.29-11.43) L 11/04/24 06:26 RBC 3.00 10^6/uL (3.85-5.65) L 11/04/24 06:26 Hgb 9.10 g/dL (11.27-16.99) L 11/04/24 06:26 Hct 28.7 % (37-53) L 11/04/24 06:26 MCV 95.7 fl (82-101) 11/04/24 06:26 MCH 30.3 pg (27-33) 11/04/24 06:26 MCHC 31.7 g/dL (30-55) 11/04/24 06:26 RDW 14.3 % (12.1-15.1) 11/04/24 06:26 Plt Count 279 10^3/cmm (157-399) 11/04/24 06:26 MPV 9.2 fL (7.4-10.4) 11/04/24 06:26 Neut % (Auto) 81.8 % 11/04/24 06:26 Lymph % (Auto) 8.5 % 11/04/24 06:26 [place] % (Auto) 8.2 % 11/04/24 06:26 Eos % (Auto) 0.9 % 11/04/24 06:26 Baso % (Auto) 0.3 % 11/04/24 06:26 Neut # (Auto) 2.58 10^3/uL (1.8-7.7) 11/04/24 06:26 Lymph # (Auto) 0.3 10^3/uL (0.8-4.8) L 11/04/24 06:26 Curry # (Auto) 0.3 10^3/uL (0.2-0.9) 11/04/24 06:26 Eos # (Auto) 0.0 10^3/uL (0.0-0.8) 11/04/24 06: Baso # (Auto) 0.0 10^3/uL (0.0-0.1) 11/04/24 06:26 Nucleated RBC % (auto) 0 % 11/04/24 06: Nucleated RBCs # 0.0 /100WBC 11/04/24 06:26 Hypochromasia 2+ H 10/31/24 05:13 Poikilocytosis 1+ H 10/31/24 05:13 Anisocytosis 1+ H 10/31/24 05:13 Ovalocytes 1+ H 10/31/24 05:13 ESR 56 mm/hr (0-10) H 10/27/24 10:15 PT 17.20 SECONDS (12.1-14.9) H 10/30/24 04:23 INR 1.32 (0.8-1.2) H 10/30/24 04:23 Sodium 139 mmol/L (136-145) 11/04/24 06:26 Potassium 3.9 mmol/L (3.5-5.1) 11/04/24 06:26 Chloride 102 mmol/L (98-107) 11/04/24 06:26 Carbon Dioxide 29 mmol/L (22-29) 11/04/24 06:26 Anion Gap 11.9 (5-19) 11/04/24 06:26 BUN 11 mg/dL (8-23) 11/04/24 06:26 Creatinine 0.6 mg/dL (0.7-1.2) L 11/04/24 06:26 GFR Calculation 133.2 mL/min (90-130) H 11/04/24 06:26 Glucose 80 mg/dL (65-115) 11/04/24 06:26 Estimat Average Glucose 100 10/28/24 04:42 Hemoglobin A1c 5.1 % (4.0-6.0) 10/28/24 04:42 Calculated Osmolality 286 mOsm/kg (285-295) 11/04/24 06:26 Lactic Acid 0.9 mmol/L (0.5-2.2) 10/28/24 16:10 Calcium 8.2 mg/dL (8.5-10.5) L 11/04/24 06:26 Phosphorus 3.3 mg/dL (2.5-4.5) 11/02/24 04:57 Magnesium 1.6 mg/dL (1.7-2.3) L 11/02/24 04:57 Total Bilirubin 0.2 mg/dL (0.15-1.2) 11/02/24 04:57 AST 17 U/L (0-40) 11/02/24 04:57 ALT 7 U/L (0-41) 11/02/24 04:57 Alkaline Phosphatase 68 U/L (40-130) 11/02/24 04:57 Troponin T Baseline 32 ng/L (0-15) H 10/29/24 10:09 Troponin T 120 Minute 30.68 ng/L (0-15) H 10/29/24 11:53 Delta Troponin T -1.32 ABS# (0-10) L 10/29/24 11:53 Troponin T Hi Sens 6Hr 25.86 ng/L (0-15) H 10/29/24 16:19 Troponin T Hi Sens 6Hr Delta -6.14 ng/L (0-12) L 10/29/24 16:19 C-Reactive Protein 14.5 mg/L (0.0-4.9) H 11/04/24 06:26 NT-Pro-B Natriuret Pep 3150 pg/mL (0-125) H 11/04/24 06:26 Total Protein 5.0 g/dL (6.6-8.7) L 11/02/24 04:57 Albumin 2.6 g/dL (3.5-5.2) L 11/02/24 04:57 Globulin 2.4 g/dL (1.3-4.6) 11/02/24 04:57 Triglycerides 107 mg/dL (0-150) 10/28/24 04:42 Cholesterol 120 mg/dL (0-200) 10/28/24 04:42 LDL Cholesterol, Calc 66 mg/dL (50-129) 10/28/24 04:42 HDL Cholesterol 33 mg/dL (60-100) L 10/28/24 04:42 LDL/HDL Ratio 2.00 RATIO (0.00-3.22) 10/28/24 04:42 Cholesterol/HDL Ratio 3.64 mg/dL (1.0-5.00) 10/28/24 04:42 Procalcitonin 0.22 ng/mL (0-0.5) 11/02/24 04:57 TSH 1.26 uIU/mL (0.27-4.20) 10/28/24 04:42 Urine Color Yellow (Yellow) 10/28/24 01:40 Urine Appearance Clear (CLEAR) 10/28/24 01:40 Urine pH 5.5 (5-7) 10/28/24 01:40 Ur Specific [place] 1.063 (1.005-1.030) H 10/28/24 01:40 Urine Protein 1+ (Negative) A 10/28/24 01:40 Urine Glucose (UA) Negative (Normal) 10/28/24 01:40 Urine Ketones Negative (Negative) 10/28/24 01:40 Urine Blood Negative (Negative) 10/28/24 01:40 Urine Nitrate Negative (Negative) 10/28/24 01:40 Urine Bilirubin Negative (Negative) 10/28/24 01:40 Urine Urobilinogen 1.0 mg/dL (Negative) 10/28/24 01:40 Ur Leukocyte Esterase Negative (Negative) 10/28/24 01:40 Urine RBC None /hpf (0-2) 10/28/24 01:40 Urine WBC None /hpf (0-5) 10/28/24 01:40 Ur Squamous Epith Cells None /hpf (0-5) 10/28/24 01:40 Amorphous Sediment Not Reportable 10/28/24 01:40 Urine Bacteria None /hpf (NONE) 10/28/24 01:40 Vancomycin Trough 17.2 ug/mL (10-15) H 10/31/24 20:12 CMV IgG Ab <0.60 U/mL 10/27/24 15:07 CMV IgM Ab <30.00 AU/mL 10/27/24 15:07 Influenza A (PCR) Positive (Negative) 10/27/24 10:15 Influenza Type B (PCR) Negative (Negative) 10/27/24 10:15 RSV (PCR) Negative (Negative) 10/27/24 10:15 SARS-CoV-2 (PCR) Negative (Negative) 10/27/24 10:15 Vitals Last Vital Signs Temp 98.1 F 11/04/24 08:00 Pulse 68 11/04/24 09:05 Resp 18 11/04/24 08:00 BP 154/81 11/04/24 08:00 Pulse Ox 84 L 11/04/24 10:47 O2 Del Method Nasal Cannula 11/04/24 08:00 O2 Flow Rate 3 11/04/24 10:47 Discharge Plan Discharge Patient Disposition: Home Condition: Stable Prescriptions: New amiodarone 200 mg tablet See Rx Instructions .ROUTE .COMPLEX Qty: 60 0RF Rx Instructions: 1 tab twice daily for 7 days, then 1 tab daily levofloxacin 750 mg Tablet 750 mg PO DAILY@0600 5 Days Qty: 5 0RF Continued famotidine 20 mg tablet 20 mg PO BID Qty: 60 0RF morphine 60 mg tablet extended release 60 mg PO Q12H 30 Days Qty: 60 0RF escitalopram oxalate 10 mg tablet 10 mg PO DAILY Qty: 30 2RF Rx Instructions: Take 1/2 tablet in evening daily for 2 weeks and then increase to 1 tablet. clopidogrel 75 mg tablet 75 mg PO DAILY Qty: 90 3RF Eliquis 5 mg tablet 5 mg PO BID Qty: 60 0RF albuterol sulfate 90 mcg/actuation HFA aerosol inhaler 2 puff INHALATION Q6H PRN (Reason: shortness of breath or wheezing) Qty: 6.7 1RF ondansetron HCl 4 mg tablet 4 mg PO Q6H PRN (Reason: nausea and vomiting) Qty: 30 3RF prochlorperazine maleate [Compazine] 10 mg tablet 10 mg PO Q4H PRN (Reason: mild nausea) Qty: 30 3RF lorazepam 1 mg tablet 0.5 - 1 mg PO Q6H PRN (Reason: severe nausea) Qty: 30 3RF furosemide 20 mg tablet 20 mg PO BID Qty: 60 0RF (DME) Portable oxygen concentrator and supplies See Rx Instructions .Route .MEDSUPPLY Qty: 1 0RF Rx Instructions: As directed oxycodone-acetaminophen [Percocet] 10-325 mg tablet 1 tab PO Q8H PRN (Reason: pain) 30 Days Qty: 60 0RF polyethylene glycol 3350 [Miralax] 17 gram/dose powder 17 g PO DAILY PRN (Reason: Constipation) Rx Instructions: Mix well into any liquid but water Discharge Orders: Discharge Order (Routine); Ordered 11/04/24 Ordered By: Larry Armendariz Other Ambulatory Orders: DME: Walker (Order) Location: None Selected Ordered By: Larry Armendariz Referrals: Blake Treadwell MD [Hospitalist] - 2 weeks Liya Huerta MD [Primary Care Provider] - 11/16/24 1:40 pm Discharge Diet: Cardiac Discharge Activity: Resume usual activity Patient Instructions: Opioid Safety Activity Restrictions/Additional Instructions: - If any shortness of breath please go to the emergency room Discharge Attestations Time Spent in Discharge Care*: greater than 30 min Status at Discharge: Cognitive status at discharge: cognitively intact, Behavioral status at discharge: cooperative, Quality Metrics Clinical Quality Measures [ No reported AMI, CVA or VTE this stay] Coding Level of Care Code 72223 Total time (in minutes) for Discharge: 45 Diagnoses Atrial fibrillation with RVR I48.91 Malignant neoplasm of overlapping sites of right lung C34.81 Influenza J11.1 Diarrhea R19.7 Enteritis K52.9 Acute on chronic hypoxic respiratory failure J96.21 Cancer cachexia R64 Physical deconditioning R53.81 Protein calorie malnutrition E46
[2024-11-04] MEDS: morphine ER (12 HR) 30 mg tablet 60 MG PO (11:40)
--- NOTE | 2024-11-04 15:42 | PC.SOCIAL ---
IMM updated IMM dated and initialed, copy given to patient and copy placed in chart
--- NOTE | 2024-11-04 16:21 | PC.NURSE ---
Discussed discharge medications, follow up appointments and answered all questions for patient. Oxygen brought to room before discharge. Medications from in house pharmacy.
== END 2024-11-04 14:40 | disposition home health service (06) | DRG 193 ==
LOC: ER 10:59 → ER IP 12:57 → CSU 17:32 → ICU 10-29 10:53 → MEDSURG 10-31 22:05
PROVIDERS: Admitting Provider Family Medicine; Emergency Provider Family Medicine; PCP Family Medicine; Visit Provider Family Medicine
DX: J10.1 Influenza due to other identified influenza virus with other respiratory manifestations (principal); J96.21 Acute and chronic respiratory failure with hypoxia; C34.81 Malignant neoplasm of overlapping sites of right bronchus and lung; C78.1 Secondary malignant neoplasm of mediastinum; C79.51 Secondary malignant neoplasm of bone; E46 Unspecified protein-calorie malnutrition; Z68.1 Body mass index [BMI] 19.9 or less, adult; J44.0 Chronic obstructive pulmonary disease with (acute) lower respiratory infection; I48.91 Unspecified atrial fibrillation; K52.9 Noninfective gastroenteritis and colitis, unspecified; Z92.3 Personal history of irradiation; Z86.711 Personal history of pulmonary embolism; I25.10 Atherosclerotic heart disease of native coronary artery without angina pectoris; I73.9 Peripheral vascular disease, unspecified; Z95.820 Peripheral vascular angioplasty status with implants and grafts; J18.9 Pneumonia, unspecified organism; E78.5 Hyperlipidemia, unspecified; Z79.02 Long term (current) use of antithrombotics/antiplatelets; Z79.01 Long term (current) use of anticoagulants; Z79.891 Long term (current) use of opiate analgesic; Z66 Do not resuscitate; G89.29 Other chronic pain; Z87.891 Personal history of nicotine dependence; Z90.49 Acquired absence of other specified parts of digestive tract; Z96.611 Presence of right artificial shoulder joint; N52.9 Male erectile dysfunction, unspecified; K59.03 Drug induced constipation; Z87.01 Personal history of pneumonia (recurrent); M81.0 Age-related osteoporosis without current pathological fracture
CPT/HCPCS: 36415; 36592; 51702; 51798; 71045; 71250; 74177; 77336; 77386; 80048; 80053; 80061; 80202; 81001; 83036; 83605; 83735; 83880; 84100; 84145; 84443; 84484; 85025; 85610; 85651; 86140; 87040; 87637; 92523; 92526; 92610; 93005; 94640; 94664; 94760; 96365; 96367; 96374; 96375; 96376; 97116; 97162; 97165; 97530; 99285; A9270; J0283; J0744; J1171; J1940; J2405; J2470; J3370; J3372; J3490; J7030; J7040; J7050; J7626; P9046

== ENCOUNTER 2024-11-18 08:19 | Emergency (ER) | payer MEDICARE, SELFPAY ==
[2024-11-18] VITALS (7 sets, daily range): BP systolic 138–181; BP diastolic 79–98; PULSE 77–110; RESP 13–21; TEMP 36.3; O2SAT 90–98; BMI 23.3
--- NOTE | 2024-11-18 08:57 | ED_ITS ---
HPI - Abdominal Pain 2 General: Chief Complaint: Abdominal Pain Stated Complaint: abd pain Time Seen by Provider: 11/18/24 08:21 History of Present Illness: 69-year-old male presents emergency room planing nausea vomiting epigastric and lower substernal chest pain. Patient has a known history of squamous cell CA lung. He has been treated with chemo and radiation in the past just recently finished radiation and they are anticipating starting another round of chemo. He has had some nausea and vomiting is unable to take his pain medications increased pain. This pain that he has is chronic now uncontrolled because of missed doses of pain medication. He is chronically on oxygen at 2 L/min and satting well at this time. He denies any recent fever sweats chills or productive cough Associated Symptoms: Reports diarrhea and nausea; Denies chills, dysuria and fever(s) Related Data Home Medications ?Medication ?Instructions ?Recorded ?Confirmed polyethylene glycol 3350 17 17 g PO DAILY PRN Constipa tion 10/27/24 11/18/24 gram/dose oral powder (Miralax) Previous Rx's ?Medication ?Instructions ?Recorded albuterol sulfate 90 mcg/actuation 2 puff inhalation Q 6H PRN 08/09/24 aerosol inhaler shortness of breath or wheez ing #6.7 grams apixaban 5 mg tablet (Eliquis) 5 mg PO BID #60 tabs clopidogrel 75 mg tablet 75 mg PO DAILY #90 tabs 09/01 03/24 escitalopram oxalate 10 mg tablet 10 mg PO DAILY #30 t abs 09/26/24 lorazepam 1 mg tablet 0.5 - 1 mg (0.5 - 1 x 1 mg) PO Q6H 10/03/24 PRN severe nausea #30 tabs ondansetron HCl 4 mg tablet 4 mg PO Q6H PRN nausea and 10/03/24 vomiting #30 tabs prochlorperazine maleate 10 mg 10 mg PO Q4H PRN mild n ausea #30 10/03/24 tablet (Compazine) tabs furosemide 20 mg tablet 20 mg PO BID #60 tabs Portable oxygen concentrator and #1 ea 10/13/24 supplies oxycodone-acetaminophen 10 mg-325 1 tab PO Q8H PRN minna n 30 days #60 10/20/24 mg tablet (Percocet) tabs amiodarone 200 mg tablet See Rx Instructions .Route 0 11/04/24 .COMPLEX #60 tabs morphine 60 mg tablet,extended 60 mg PO Q12H 30 days # 60 tabs 11/07/24 release famotidine 20 mg tablet 20 mg PO BID #60 tabs Allergies Allergy/AdvReac Type Severity Reaction Status Date / Time Penicillins Allergy Unknown ALGY-Swell Verified 11/14/24 15:03 Lip/Tongue/Throat Review of Systems 2 Const: Denies: fever(s) or chills Card: Reports: chest pain Resp: Denies: dyspnea GI: Reports: abdominal pain, nausea and diarrhea : Denies: dysuria, urinary frequency or urinary urgency Musc: Denies: neck pain or back pain Skin/Breast: Denies: rash PFSH ED 2 PFSH: Medical History Osteoporosis Pneumonia Opioid-induced constipation Pulmonary embolism Spinal stenosis Port-A-Cath in place but then had removed Compression fracture of T7 vertebra Cavitary lesion of lung Constipation Cancer related pain Non-small cell lung cancer Immunosuppressed due to chemotherapy Drug or medicinal substance causing adverse effect in therapeutic use Antineoplastic chemotherapy induced anemia Chemotherapy-induced vomiting Secondary malignant neoplasm of mediastinum Chemotherapy management, encounter for Malignant neoplasm of overlapping sites of right lung Lung cancer metastatic to bone GI (gastrointestinal bleed) Mass of right lung Bilateral direct inguinal hernia CAD (coronary artery disease) Tobacco abuse PAD (peripheral artery disease) Erectile 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 COPD (chronic obstructive pulmonary disease) Hyperlipidemia Surgical History History of back surgery Status post peripheral artery angioplasty with insertion of stent History of angioplasty of peripheral vessel History of right shoulder replacement History of chest tube placement History of laparoscopic cholecystectomy Family History Father Diabetes Brother , AGE 60 CAD (coronary artery disease) Myocardial infarction Mother Diabetes Grandfather Diabetes MATERNAL Grandmother Diabetes MATERNAL Social History Smoking and tobacco/nicotine status: former use of tobacco/nicotine Quit status (tobacco/nicotine): has quit using Year quit tobacco: 2022 Former quit date comment: has had no cigarette tobacco for 10 days/smoked for 50 years Alcohol intake: former Substance/Drug Use: current Substance/Drug use frequency: few times a week Household members: none Marital status: Number of children: 1 service: No 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 kings needs: No Physical Exam 2 Const: COMMON NORMALS: no acute distress GENERAL APPEARANCE: cooperative and comfortable ORIENTATION/CONSCIOUSNESS: Yes awake, Yes oriented to person, Yes oriented to place and Yes oriented to time HENMT: COMMON NORMALS: normocephalic, atraumatic and hearing grossly normal bilaterally HEAD & SCALP: normocephalic and atraumatic Resp: COMMON NORMALS: normal respiratory effort, No retractions, No use of accessory muscles and clear to auscultation bilaterally AUSCULTATION: clear to auscultation bilaterally Cardio: COMMON NORMALS: regular rate, regular rhythm and No murmurs present (Cardio) RATE: regular rate RHYTHM: regular rhythm GI: COMMON NORMALS: Soft to palpation and No hepatosplenomegaly present A USCULTATION: Yes normoactive bowel sounds PALPATION: Yes Soft to palpation, No Tenderness to palpation present (GI), No Guarding due to palpation present (GI) and Yes No hepatosplenomegaly present Extremity: COMMON NORMALS: normal to inspection, capillary refill normal, no clubbing, cyanosis or edema, no calf tenderness and no pedal edema Neuro: SENSORIUM/ORIENTATION: Yes oriented to person, Yes oriented to place and Yes oriented to time Skin: COMMON NORMALS: no rashes or lesions noted GENERAL SKIN EXAM: no rashes or lesions noted Course 2 Vital Signs: Vital signs: Vital Signs Temperature 97.4 F L 11/18/24 08:22 Pulse Rate 78 11/18/24 13:10 Respiratory Rate 19 H 11/18/24 12:00 Blood Pressure 145/81 11/18/24 13:10 Pulse Oximetry 95 11/18/24 13:10 Oxygen Delivery Me thod Nasal Cannula 11/18/24 08:22 Oxygen Flow Rate 2 11/18/24 08:22 MDM - Abdominal Pain Medical Decision Making Labs and imaging reviewed. Liver functions are increased. Patient is otherwise stabilized his pain is much better at this time. There is some small bowel distention of fluid but is unchanged from previous he has a moderate amount of stool in the colon. The opacities in the right lower lung are also partially visualized. Patient previously has had cholecystectomy no identifiable lesions in the liver at this time. Nose leukocytosis. Patient states he is feeling better will discharge home with pain medications have him follow-up with oncology. He is scheduled to see them soon and have a PET scan. Discussed the liver function findings with the patient and encouraged him to make sure he follows up that this is a new change and is significant will need further evaluation. Medical Records I reviewed the patient's medical records. Lab Data I reviewed the patient's lab results. 11/18/24 08:55 11/18/24 08:55 Labs/Radiology: Radiology Impressions Abdomen/Pelvis CT 11/18/24 09:07 Impression: 1. Small bowel fluid distention unchanged from earlier examination. 2. Moderate amount of fecal material in the colon. 3. Cholecystectomy. 4. Right lower lobe pleural opacities which could represent inflammatory disease, chronic fibrosis or less likely metastatic disease. Laboratory Results WBC 4.96 10^3/uL (3.29-11.43) 11/18/24 08:55 RBC 4.00 10^6/uL (3.85-5.65) 11/18/24 08:55 Hgb 11.80 g/dL (11.27-16.99) 11/18/24 08:55 Hct 37.2 % (37-53) 11/18/24 08:55 MCV 93.0 fl (82-101) 11/18/24 08:55 MCH 29.5 pg (27-33) 11/18/24 08:55 MCHC 31.7 g/dL (30-55) 11/18/24 08:55 RDW 14.6 % (12.1-15.1) 11/18/24 08:55 Plt Count 278 10^3/cmm (157-399) 11/18/24 08:55 MPV 9.5 fL (7.4-10.4) 11/18/24 08:55 Neut % (Auto) 90.0 % 11/18/24 08:55 Lymph % (Auto) 4.6 % 11/18/24 08:55 [place] % (Auto) 5.0 % 11/18/24 08:55 Eos % (Auto) 0.0 % 11/18/24 08:55 Baso % (Auto) 0.2 % 11/18/24 08:55 Neut # (Auto) 4.46 10^3/uL (1.8-7.7) 11/18/24 08:55 Lymph # (Auto) 0.2 10^3/uL (0.8-4.8) L 11/18/24 08:55 [place] # (Auto) 0.3 10^3/uL (0.2-0.9) 11/18/24 08:55 Eos # (Auto) 0.0 10^3/uL (0.0-0.8) 11/18/24 08:55 Baso # (Auto) 0.0 10^3/uL (0.0-0.1) 11/18/24 08:55 Nucleated RBC % (auto) 0 % 11/18/24 08:55 Nucleated RBCs # 0.0 /100WBC 11/18/24 08:55 Sodium 135 mmol/L (136-145) L 11/18/24 08:55 Potassium 3.3 mmol/L (3.5-5.1) L 11/18/24 08:55 Chloride 93 mmol/L (98-107) L 11/18/24 08:55 Carbon Dioxide 30 mmol/L (22-29) H 11/18/24 08:55 Anion Gap 15.3 (5-19) 11/18/24 08:55 BUN 21 mg/dL (8-23) 11/18/24 08:55 Creatinine 1.1 mg/dL (0.7-1.2) 11/18/24 08:55 GFR Calculation 66.2 mL/min (90-130) L 11/18/24 08:55 Glucose 82 mg/dL (65-115) 11/18/24 08:55 Calculated Osmolality 282 mOsm/kg (285-295) L 11/18/24 08:55 Calcium 8.4 mg/dL (8.5-10.5) L 11/18/24 08:55 Total Bilirubin 1.2 mg/dL (0.15-1.2) 11/18/24 08:55 AST 448 U/L (0-40) H 11/18/24 08:55 ALT 466 U/L (0-41) H 11/18/24 08:55 Alkaline Phosphatase 139 U/L (40-130) H 11/18/24 08:55 Total Protein 6.6 g/dL (6.6-8.7) 11/18/24 08:55 Albumin 3.4 g/dL (3.5-5.2) L 11/18/24 08:55 Globulin 3.2 g/dL (1.3-4.6) 11/18/24 08:55 Lipase 24 U/L (13-60) 11/18/24 08:55 Urine Color Yellow (Yellow) 11/18/24 11:33 Urine Appearance Clear (CLEAR) 11/18/24 11:33 Urine pH 7.5 (5-7) 11/18/24 11:33 Ur Specific Bivalve 1.034 (1.005-1.030) H 11/18/24 11:33 Urine Protein Negative (Negative) 11/18/24 11:33 Urine Glucose (UA) Negative (Normal) 11/18/24 11:33 Urine Ketones 1+ (Negative) H 11/18/24 11:33 Urine Blood Negative (Negative) 11/18/24 11:33 Urine Nitrate Negative (Negative) 11/18/24 11:33 Urine Bilirubin Negative (Negative) 11/18/24 11:33 Urine Urobilinogen 2.0 mg/dL (Negative) H 11/18/24 11:33 Ur Leukocyte Esterase Negative (Negative) 11/18/24 11:33 Urine RBC 0-2 /hpf (0-2) 11/18/24 11:33 Urine WBC 0-5 /hpf (0-5) 11/18/24 11:33 Ur Squamous Epith Cells 0-5 /hpf (0-5) 11/18/24 11:33 Amorphous Sediment Not Reportable 11/18/24 11:33 Urine Bacteria None seen /hpf (NONE) 11/18/24 11:33 Hyaline Casts 0.40 /lpf 11/18/24 11:33 All radiology interpretation(s) finalized by discharge Discharge Plan Discharge Patient Disposition: Home Clinical Impression: Malignant neoplasm of overlapping sites of right lung, Elevated liver enzymes Condition: Stable Prescriptions: No Action famotidine 20 mg tablet 20 mg PO BID Qty: 60 0RF escitalopram oxalate 10 mg tablet 10 mg PO DAILY Qty: 30 2RF clopidogrel 75 mg tablet 75 mg PO DAILY Qty: 90 3RF Eliquis 5 mg tablet 5 mg PO BID Qty: 60 0RF albuterol sulfate 90 mcg/actuation HFA aerosol inhaler 2 puff INHALATION Q6H PRN (Reason: shortness of breath or wheezing) Qty: 6.7 1RF ondansetron HCl 4 mg tablet 4 mg PO Q6H PRN (Reason: nausea and vomiting) Qty: 30 3RF prochlorperazine maleate [Compazine] 10 mg tablet 10 mg PO Q4H PRN (Reason: mild nausea) Qty: 30 3RF lorazepam 1 mg tablet 0.5 - 1 mg PO Q6H PRN (Reason: severe nausea) Qty: 30 3RF furosemide 20 mg tablet 20 mg PO BID Qty: 60 0RF (DME) Portable oxygen concentrator and supplies See Rx Instructions .Route .MEDSUPPLY Qty: 1 0RF Rx Instructions: As directed oxycodone-acetaminophen [Percocet] 10-325 mg tablet 1 tab PO Q8H PRN (Reason: pain) 30 Days Qty: 60 0RF morphine 60 mg tablet extended release 60 mg PO Q12H 30 Days Qty: 60 0RF polyethylene glycol 3350 [Miralax] 17 gram/dose powder 17 g PO DAILY PRN (Reason: Constipation) Rx Instructions: Mix well into any liquid but water amiodarone 200 mg tablet See Rx Instructions .ROUTE .COMPLEX Qty: 60 0RF Rx Instructions: 1 tab twice daily for 7 days, then 1 tab daily Discharge Orders: Discharge ED (Routine); Ordered 11/18/24 Ordered By: Garrett Warner Referrals: Liya Huerta MD [Primary Care Provider] - Discharge Diet: Usual diet Discharge Activity: Resume usual activity Patient Instructions: Opioid Safety, Pain Management Activity Restrictions/Additional Instructions: Thank you for choosing [facility] for your healthcare needs today. It is very important that you follow up as instructed or that you return to the Emergency Department should you have concerns or if your condition changes or worsens in any way. You are seen in the emergency room for pain in chest and abdomen. Laboratory tests show significant elevation of your liver enzymes. The remainder of your tests are typical for what we would expect given your underlying diagnosis. Recommend you follow-up with oncology as planned. Print Language: Vietnamese Coding Level of Care Code ED [employer] for [employer]
--- NOTE | 2024-11-18 09:07 | CT_ITS ---
WS: [id number] CT scan of the abdomen and pelvis with IV contrast. Additional two-dimensional coronal and sagittal reconstruction was performed. 11/18/2024 Clinical Data: abd pain Comparison: CT abdomen pelvis, 10/27/2024 DLP: 342.[address] scans at [facility] use at least one of these dose optimization techniques: automated exposure control; mA and/or kV adjustment per patient size (includes targeted exams where dose is matched to clinical indication); or iterative reconstruction. Findings: The lower lungs show no nodules, masses or effusions. There is a patchy opacity in the posterior aspect of the right lower lobe unchanged. The liver, spleen, adrenal glands and pancreas show no change from earlier examination. The portal vein is normal. There are cholecystectomy clips in the gallbladder fossa. The kidneys show equal bilateral contrast excretion with cysts but no masses, hydronephrosis or renal calculi. The abdominal aorta is normal in size with calcification in the wall. No appendicitis or diverticulitis is seen. There is fluid in the small bowel unchanged from earlier examination. The colon has fecal material within. No abscess, obstruction, ascites or adenopathy is seen. The bladder is unremarkable. No inguinal hernia is seen. The lumbar spine shows osteoarthritis with disc narrowing.. CT/CT abdomen pelvis w con* [id number] Impression: 1. Small bowel fluid distention unchanged from earlier examination. 2. Moderate amount of fecal material in the colon. 3. Cholecystectomy. 4. Right lower lobe pleural opacities which could represent inflammatory diseas e, chronic fibrosis or less likely metastatic disease.
[2024-11-18 09:08] LABS: Basophils % 0.2 %; Hematocrit 37.2 % (37-53); Lymphocytes # 0.2 10^3/uL (0.8-4.8); Lymphocytes % 4.6 %; Mean Corpuscular HGB Conc 31.7 g/dL (30-55); Mean Corpuscular Hemoglobin 29.5 pg (27-33); Mean Platelet Volume 9.5 fL (7.4-10.4); Monocytes # 0.3 10^3/uL (0.2-0.9); Neutrophils # 4.46 10^3/uL (1.8-7.7); Nucleated Red Blood Cells % 0 %; Platelet Count 278 10^3/cmm (157-399); Red Cell Distribution Width 14.6 % (12.1-15.1); White Blood Count 4.96 10^3/uL (3.29-11.43)
[2024-11-18 09:27] LABS: Alanine Aminotransferase 466 U/L (0-41); Albumin Level 3.4 g/dL (3.5-5.2); Alkaline Phosphatase 139 U/L (40-130); Anion Gap 15.3 (5-19); Aspartate Amino Transferase 448 U/L (0-40); Blood Urea Nitrogen 21 mg/dL (8-23); Calcium 8.4 mg/dL (8.5-10.5); Carbon Dioxide 30 mmol/L (22-29); Chloride 93 mmol/L (98-107); Creatinine Clr Calc Pharmacy 57.0857; Globulin 3.2 g/dL (1.3-4.6); Glomerular Filtration Rate 66.2 mL/min (90-130); Glucose 82 mg/dL (65-115); Lipase 24 U/L (13-60); Osmolality Calculated 282 mOsm/kg (285-295); Potassium 3.3 mmol/L (3.5-5.1); Sodium 135 mmol/L (136-145); Total Bilirubin 1.2 mg/dL (0.15-1.2); Total Protein 6.6 g/dL (6.6-8.7)
[2024-11-18] MEDS: ondansetron 2 mg/ML SDV 2 mL 4 MG IVP (10:12)
[2024-11-18] MEDS: HYDROmorphone 0.5 MG/0.5 ML INJ IVP ×2 (10:13→13:04)
[2024-11-18] MEDS: iohexol 350 mg/mL 500 mL Btl (per mL) IV (10:27)
[2024-11-18 11:59] LABS: Bilirubin Urine Negative (Negative); Blood Urine Negative (Negative); Glucose Urine UA Negative (Normal); Ketones Urine 1+ (Negative); Leukocyte Esterase Urine Negative (Negative); Nitrate Urine Negative (Negative); Protein Urine Negative (Negative); Urine Appearance Clear (CLEAR); Urine Color Yellow (Yellow); pH Urine 7.5 (5-7)
[2024-11-18 12:04] LABS: Add Urine Microscopic? YES; Bacteria Urine None Seen /hpf; RBC Urine 0-2 /hpf (0-2); Squamous Epithelial Cell Urine 0-5 /hpf (0-5); WBC Urine 0-5 /hpf (0-5)
[2024-11-18 12:18] LABS: Specific Gravity, Urine 1.034 (1.005-1.030)
== END 2024-11-18 13:10 | disposition home or self-care (01) ==
PROVIDERS: Emergency Provider Family Medicine; PCP Family Medicine
DX: C34.81 Malignant neoplasm of overlapping sites of right bronchus and lung (principal); R74.01 Elevation of levels of liver transaminase levels; Z79.02 Long term (current) use of antithrombotics/antiplatelets; Z79.01 Long term (current) use of anticoagulants; Z87.891 Personal history of nicotine dependence; J44.9 Chronic obstructive pulmonary disease, unspecified; E78.5 Hyperlipidemia, unspecified
CPT/HCPCS: 36415; 74177; 80053; 81001; 83690; 85025; 96374; 96375; 96376; 99285; J1171; J2405

== ENCOUNTER 2024-12-15 19:29 | Inpatient (IN) | payer MEDICARE, SELFPAY ==
[2024-12-15] VITALS (13 sets, daily range): BP systolic 94–130; BP diastolic 62–82; PULSE 73–100; RESP 16–26; TEMP 36.5–37.1; O2SAT 91–95; BMI 27.3; BMI 21.4
--- NOTE | 2024-12-15 19:35 | XRR_ITS ---
PROCEDURE INFORMATION: Exam: XR Chest Exam date and time: 12/15/2024 7:49 PM Age: 69 years old Clinical indication: Shortness of breath TECHNIQUE: Imaging protocol: Radiologic exam of the chest. Views: 1 view. COMPARISON: CR XR chest 1V portable [id number] 10/31/2024 7:14 AM FINDINGS: Lungs: New reticular opacity is demonstrated at the left lung base. Heterogeneous density at the right hilus is persistent but slightly improved when compared to prior. Pleural spaces: No pleural effusion. No pneumothorax. Heart/Mediastinum: Cardiac silhouette is normal in size for technique. Bones/joints: Subjective bony demineralization. Vertebroplasty cement noted in a midthoracic vertebral body. Reverse right shoulder prosthesis. Advanced arthropathy left shoulder. No visible acute fracture. XR/XR chest 1V portable [id number] IMPRESSION: 1. New reticular opacity at the left lung base could represent developing pneumonia, atelectasis, or changes of aspiration. 2. Improving but not resolved heterogeneous masslike opacity at the right hilus.
--- NOTE | 2024-12-15 19:47 | ECG_ITS ---
[facility] Test Date: 2024-12-15 Pat Name: Karthik Gordon Department: Room: Gender: Male Range Examiner: : 1955 Requested By: Juliette Vergara Order Number: [id number] Patti MD: Coco Yarbrough M.D. Measurements Intervals [place] Rate: 96 P: 169 DE: 185 QRS: 111 QRSD: 106 T: 110 QT: 365 QTc: 463 Interpretive Statements SINUS RHYTHM ARM LEADS REVERSED [INVERTED P AND QRS IN I] Compared to ECG 10/29/2024 15:26:08 Atrial fibrillation no longer present Electronically Signed On 12-16-2024 08:41:50 CDT by Coco Yarbrough M.D. [email or web address]
[2024-12-15 19:57] LABS: ABG PCO2 54.7 mmHg (35-45); ABG PH Result 7.34 (7.35-7.45); Alveolar-Arterial Oxygen Gradi 2.2 mmHg (5-10); Arterial Blood Gas Hematocrit 27.3 % (42-52); Base Excess ABG 3.3 mmol/L (-2.0-2.0); Blood Gas Allen Test Pos; Blood Gas Operator Identificat gerca; Blood Gas Sample Site Radial, left; Blood Gas Sample Type Arterial; Carboxyhemoglobin 3.1 %THgb (0.4-20.1); HCO3 ABG 29.7 mmol/L (22-26); HGB O2 Sat 87.9 % (95-100); Ionized Calcium Level - ABG 1.2 mmol/L (1.1-1.4); Oxygen Device NC; Oxygen Saturation ABG 91.6; PO2 ABG 64.9 mmHg (80.0-100.0); Potassium Level - ABG 3.6 mmol/L (3.5-5.0); Total Hemoglobin 8.9 g/dL (14-18)
--- NOTE | 2024-12-15 20:04 | W.ED.WEAKNES ---
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 He had been having some nausea and vomiting but has not had any more today. No focal abdominal pain on exam. He has increased oxygen requirements. On presentation he is on 6 L and O2 sats are ranging between the upper 70s when he is talking to the upper 80s when he is at rest. He is slightly tachypneic. He arrived on a 15 L nonrebreather. No chest pain. No altered mental status. No focal motor deficits. He says he thinks he is had some fevers at home. Temp is 97.7 on presentation here. Review of Systems Narrative: Constitutional symptoms: Negative except as documented in HPI. Skin symptoms: Negative except as documented in HPI. Eye symptoms: Negative except as documented in HPI. ENMT symptoms: Negative except as documented in HPI. Respiratory symptoms: Negative except as documented in HPI. Cardiovascular symptoms: Negative except as documented in HPI. Gastrointestinal symptoms: Negative except as documented in HPI. Genitourinary symptoms: Negative except as documented in HPI. Musculoskeletal symptoms: Negative except as documented in HPI. Neurologic symptoms: Negative except as documented in HPI. Psychiatric symptoms: Negative except as documented in HPI. Endocrine symptoms: Negative except as documented in HPI. PFS ED PFSH: Medical History Osteoporosis Pneumonia Opioid-induced constipation Pulmonary embolism Spinal stenosis Port-A-Cath in place but then had removed Compression fracture of T7 vertebra Cavitary lesion of lung Constipation Cancer related pain Non-small cell lung cancer Immunosuppressed due to chemotherapy Drug or medicinal substance causing adverse effect in therapeutic use Antineoplastic chemotherapy induced anemia Chemotherapy-induced vomiting Secondary malignant neoplasm of mediastinum Chemotherapy management, encounter for Malignant neoplasm of overlapping sites of right lung Lung cancer metastatic to bone GI (gastrointestinal bleed) Mass of right lung Bilateral direct inguinal hernia CAD (coronary artery disease) Tobacco abuse PAD (peripheral artery disease) Erectile 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 COPD (chronic obstructive pulmonary disease) Hyperlipidemia Surgical History History of back surgery Status post peripheral artery angioplasty with insertion of stent History of angioplasty of peripheral vessel History of right shoulder replacement History of chest tube placement History of laparoscopic cholecystectomy Family History Father Diabetes Brother , AGE 60 CAD (coronary artery disease) Myocardial infarction Mother Diabetes Grandfather Diabetes MATERNAL Grandmother Diabetes MATERNAL Social History Smoking and tobacco/nicotine status: former use of tobacco/nicotine Quit status (tobacco/nicotine): has quit using Year quit tobacco: 2022 Former quit date comment: has had no cigarette tobacco for 10 days/smoked for 50 years Alcohol intake: former Substance/Drug Use: current Substance/Drug use frequency: few times a week Household members: none Marital status: Number of children: 1 service: No 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 Skin: Warm, dry. Head: Normocephalic, atraumatic. Neck: Supple, trachea midline. Eye: Extraocular movements are intact. Ears, nose, mouth and throat: mucosa moist. Cardiovascular: Regular, Normal peripheral perfusion. Respiratory: Lungs are clear to auscultation, respirations are non-labored, breath sounds are equal, Symmetrical chest wall expansion. Gastrointestinal: Soft, Nontender, Non distended Musculoskeletal: Normal ROM, no deformity. Neurological: Alert and oriented, No focal neurological deficit observed. Psychiatric: Cooperative, appropriate mood & affect. Course Vital Signs: Vital signs: Vital Signs Temperature 97.7 F 12/15/24 19:45 Pulse Rate 89 12/15/24 21:02 Respiratory Rate 20 H 12/15/24 20:27 Blood Pressure 94/62 12/15/24 21:02 Pulse Oximetry 95 12/15/24 21:02 Oxygen Delivery Me thod High Flow Nasal C annula 12/15/24 21:02 Oxygen Flow Rate 10 12/15/24 21:02 MDM - Weakness Medical Decision Making Differential diagnosis for patient with shortness of breath includes but is not limited to and based on the above HPI, review of systems and physical exam: Pneumonia. Bronchitis. Asthma or COPD with acute exacerbation. Acute coronary syndrome / [place]. Pulmonary embolism. Anxiety. Congestive heart failure. Viral infections including influenza and Covid-19. Atrial fibrillation. Anxiety. Pleural effusion. Pneumothorax. Orders placed to evaluate differential diagnosis based on the above differential, HPI and physical exam EKG: Time 1946. Rate 96. Normal sinus rhythm, No ST-T changes, no ectopy, normal [place] & QRS intervals, This was reviewed and interpreted by myself the ER physician at 1950. AB.3 with an O2 sat of 88% on 6 L nasal cannula. Chest x-ray: Right sided mass that appears that appears to be improving. New left lower lobe opacity that may be an infiltrate/pneumonia. This was reviewed and interpreted by myself the emergency room physician. I also reviewed the radiology report. Lab Review: Laboratory results were reviewed and interpreted by myself the emergency room physician. Lactate is 4. Mean and creatinine are stable at 19 and 0.9. No leukocytosis. No anemia. I reviewed the patient's medical record. 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 Oxygen saturations have improved. His work of breathing seems a bit better. Consultation: I spoke with Dr. Armendariz is on-call for the hospital service who agrees to admission. Assessment and plan: Sepsis Pneumonia Acute on chronic hypoxemic respiratory failure Pneumonia COPD with acute exacerbation -2 L normal saline bolus. With history of heart failure holding on further fluids at this time. -Broad-spectrum antibiotics were administered. Zyvox and meropenem -Sepsis quality measures. -Lactic acid with a reflex was ordered. -Blood cultures were ordered. ?IV Solu-Medrol, multiple breathing treatments. ?Currently requiring 10 L high flow nasal cannula. -I discussed the patient with the hospitalist on-call who is admitting the patient. - Discussed findings and plan with patient. Answered any questions. - All laboratory values were reviewed and interpreted personally by myself, the ER physician - All imaging was reviewed and interpreted personally by myself, the ER physician. - Evaluation and treatment of this problem were appropriate in the emergency setting Critical care -I spent a total of >35 minutes of critical care time managing the patient, independent of any other practitioner. -The time involved in the performance of separately reportable procedures was not counted towards critical care time. Lab Data 12/15/24 19:40 12/15/24 19:40 Radiology Impressions Chest X-Ray 12/15/24 19:35 IMPRESSION: 1. New reticular opacity at the left lung base could represent developing pneumonia, atelectasis, or changes of aspiration. 2. Improving but not resolved heterogeneous masslike opacity at the right hilus. Laboratory Results WBC 4.23 10^3/uL (3.29-11.43) 12/15/24 19:40 RBC 3.55 10^6/uL (3.85-5.65) L 12/15/24 19:40 Hgb 10.10 g/dL (11.27-16.99) L 12/15/24 19:40 Hct 32.5 % (37-53) L 12/15/24 19:40 MCV 91.5 fl (82-101) 12/15/24 19:40 MCH 28.5 pg (27-33) 12/15/24 19:40 MCHC 31.1 g/dL (30-55) 12/15/24 19:40 RDW 14.0 % (12.1-15.1) 12/15/24 19:40 Plt Count 135 10^3/cmm (157-399) L 12/15/24 19:40 MPV 11.1 fL (7.4-10.4) H 12/15/24 19:40 Neut % (Auto) 79.5 % 12/15/24 19:40 Lymph % (Auto) 5.7 % 12/15/24 19:40 [place] % (Auto) 13.9 % 12/15/24 19:40 Eos % (Auto) 0.0 % 12/15/24 19:40 Baso % (Auto) 0.2 % 12/15/24 19:40 Neut # (Auto) 3.36 10^3/uL (1.8-7.7) 12/15/24 19:40 Lymph # (Auto) 0.2 10^3/uL (0.8-4.8) L 12/15/24 19:40 [place] # (Auto) 0.6 10^3/uL (0.2-0.9) 12/15/24 19:40 Eos # (Auto) 0.0 10^3/uL (0.0-0.8) 12/15/24 19:40 Baso # (Auto) 0.0 10^3/uL (0.0-0.1) 12/15/24 19:40 Nucleated RBC % (auto) 0 % 12/15/24 19:40 Nucleated RBCs # 0.0 /100WBC 12/15/24 19:40 Specimen Type Arterial 12/15/24 19:45 Sample Site Radial, left 12/15/24 19:45 ABG pH 7.34 (7.35-7.45) L 12/15/24 19:45 ABG pCO2 54.7 mmHg (35-45) H 12/15/24 19:45 ABG pO2 64.9 mmHg (80.0-100.0) L 12/15/24 19:45 ABG HCO3 29.7 mmol/L (22-26) H 12/15/24 19:45 ABG O2 Saturation 91.6 12/15/24 19:45 ABG Base Excess 3.3 mmol/L (-2.0-2.0) H 12/15/24 19:45 Michael Test Pos 12/15/24 19:45 A-a O2 Gradient 2.2 mmHg (5-10) L 12/15/24 19:45 Hematocrit 27.3 % (42-52) L 12/15/24 19:45 Hgb O2 Saturation 87.9 % (95-100) L 12/15/24 19:45 Carboxyhemoglobin 3.1 %THgb (0.4-20.1) 12/15/24 19:45 Methemoglobin 1.0 % (0.4-1.5) 12/15/24 19:45 Total Hemoglobin 8.9 g/dL (14-18) L 12/15/24 19:45 Sodium 134.0 mmol/L (131-143) 12/15/24 19:45 Potassium 3.6 mmol/L (3.5-5.0) 12/15/24 19:45 Glucose 103.0 mg/dL (70-115) 12/15/24 19:45 Ionized Calcium 1.2 mmol/L (1.1-1.4) 12/15/24 19:45 O2 Delivery Device Nc 12/15/24 19:45 O2 Liters/Min 6.0 % 12/15/24 19:45 Mold Tooling Technician ID gerca 12/15/24 19:45 Sodium 135 mmol/L (136-145) L 12/15/24 19:40 Potassium 4.3 mmol/L (3.5-5.1) 12/15/24 19:40 Chloride 93 mmol/L (98-107) L 12/15/24 19:40 Carbon Dioxide 26 mmol/L (22-29) 12/15/24 19:40 Anion Gap 20.3 (5-19) H 12/15/24 19:40 BUN 19 mg/dL (8-23) 12/15/24 19:40 Creatinine 0.9 mg/dL (0.7-1.2) 12/15/24 19:40 GFR Calculation 83.4 mL/min (90-130) L 12/15/24 19:40 Glucose 101 mg/dL (65-115) 12/15/24 19:40 Calculated Osmolality 282 mOsm/kg (285-295) L 12/15/24 19:40 Lactic Acid 4.0 mmol/L (0.5-2.2) H 12/15/24 19:40 Calcium 8.6 mg/dL (8.5-10.5) 12/15/24 19:40 Total Bilirubin 1.0 mg/dL (0.15-1.2) 12/15/24 19:40 AST 37 U/L (0-40) 12/15/24 19:40 ALT 38 U/L (0-41) 12/15/24 19:40 Alkaline Phosphatase 243 U/L (40-130) H 12/15/24 19:40 Troponin T Baseline 45 ng/L (0-15) H 12/15/24 19:40 NT-Pro-B Natriuret Pep 1763 pg/mL (0-125) H 12/15/24 19:40 Total Protein 6.6 g/dL (6.6-8.7) 12/15/24 19:40 Albumin 3.5 g/dL (3.5-5.2) 12/15/24 19:40 Globulin 3.1 g/dL (1.3-4.6) 12/15/24 19:40 Lipase 16 U/L (13-60) 12/15/24 19:40 All radiology interpretation(s) finalized by discharge Discharge Plan Discharge Patient Disposition: Admitted As Inpatient Clinical Impression: Acute on chronic hypoxic respiratory failure, Sepsis, COPD with acute exacerbation, Pneumonia Condition: Stable Coding Level of Care Code ED Biazzi Nitrator Operator for Chg Fwd Related Data Home Medications ?Medication ?Instructions ?Recorded ?Confirmed polyethylene glycol 3350 17 17 g PO DAILY PRN Constipation 10/27/24 12/14/24 gram/dose oral powder (Miralax) Previous Rx's ?Medication ?Instructions ?Recorded albuterol sulfate 90 mcg/actuation 2 puff inhalation Q6H PRN 08/09/24 aerosol inhaler shortness of breath or wheezing #6.7 grams apixaban 5 mg tablet (Eliquis) 5 mg PO BID #60 tabs 09/26/24 clopidogrel 75 mg tablet 75 mg PO DAILY #90 tabs 09/26/24 escitalopram oxalate 10 mg tablet 10 mg PO DAILY #30 tabs 09/26/24 lorazepam 1 mg tablet 0.5 - 1 mg (0.5 - 1 x 1 mg) PO Q6H 10/03/24 PRN severe nausea #30 tabs ondansetron HCl 4 mg tablet 4 mg PO Q6H PRN nausea and 10/03/24 vomiting #30 tabs prochlorperazine maleate 10 mg 10 mg PO Q4H PRN mild nausea #30 10/03/24 tablet (Compazine) tabs furosemide 20 mg tablet 20 mg PO BID #60 tabs 10/10/24 Portable oxygen concentrator and #1 ea 10/13/24 supplies amiodarone 200 mg tablet See Rx Instructions .Route 11/04/24 .COMPLEX #60 tabs famotidine 20 mg tablet 20 mg PO BID #60 tabs 11/14/24 morphine 60 mg tablet,extended 60 mg PO Q12H 30 days #60 tabs 11/29/24 release oxycodone-acetaminophen 10 mg-325 1 tab PO Q8H PRN pain 30 days #60 11/29/24 mg tablet (Percocet) tabs Allergies Allergy/AdvReac Type Severity Reaction Status Date / Time Penicillins Allergy Unknown Zully Verified 12/14/24 08:28 Lip/Tongue/Throat
[2024-12-15] MEDS: ipratropium-albuterol 3 mL Neb INHALATION (20:14)
[2024-12-15] MEDS: albuterol 2.5 mg/3 mL Neb INHALATION (20:14)
[2024-12-15 20:16] LABS: Basophils % 0.2 %; Hematocrit 32.5 % (37-53); Lymphocytes # 0.2 10^3/uL (0.8-4.8); Lymphocytes % 5.7 %; Mean Corpuscular HGB Conc 31.1 g/dL (30-55); Mean Corpuscular Hemoglobin 28.5 pg (27-33); Mean Corpuscular Volume 91.5 fl (82-101); Mean Platelet Volume 11.1 fL (7.4-10.4); Monocytes # 0.6 10^3/uL (0.2-0.9); Monocytes % 13.9 %; Neutrophils # 3.36 10^3/uL (1.8-7.7); Neutrophils % 79.5 %; Nucleated Red Blood Cells % 0 %; Platelet Count 135 10^3/cmm (157-399); Red Blood Count 3.55 10^6/uL (3.85-5.65); White Blood Count 4.23 10^3/uL (3.29-11.43)
[2024-12-15 20:36] LABS: Troponin(5th) Baseline 45 ng/L (0-15)
[2024-12-15 20:50] LABS: Alanine Aminotransferase 38 U/L (0-41); Albumin Level 3.5 g/dL (3.5-5.2); Alkaline Phosphatase 243 U/L (40-130); Aspartate Amino Transferase 37 U/L (0-40); Blood Urea Nitrogen 19 mg/dL (8-23); Calcium 8.6 mg/dL (8.5-10.5); Carbon Dioxide 26 mmol/L (22-29); Chloride 93 mmol/L (98-107); Creatinine Clr Calc Pharmacy 77.1422; Globulin 3.1 g/dL (1.3-4.6); Glomerular Filtration Rate 83.4 mL/min (90-130); Glucose 101 mg/dL (65-115); Lipase 16 U/L (13-60); NT Pro B Type Natriuretic Pept 1763 pg/mL (0-125); Osmolality Calculated 282 mOsm/kg (285-295); Sodium 135 mmol/L (136-145); Total Protein 6.6 g/dL (6.6-8.7)
[2024-12-15 20:53] LABS: Anion Gap 20.3 (5-19); Potassium 4.3 mmol/L (3.5-5.1)
[2024-12-15] MEDS: meropenem 500 mg SDV IVP (20:58)
[2024-12-15] MEDS: methylPREDNISolone sod succ 125 mg/2 mL INJ IVP (20:58)
[2024-12-15] MEDS: linezolid premix 600 MG/300 ML PREMIX 300 MG IV (20:59)
[2024-12-15] MEDS: sodium chloride 0.9% 1,000 ML 999 ML IV (21:07)
[2024-12-15 21:08] LABS: Slide Review Slide Review Perform
[2024-12-15] MEDS: sodium chloride 0.9% 500 ML 999 ML IV (21:20)
[2024-12-15 21:27] LABS: Influenza A NEGATIVE (Negative); Influenza B NEGATIVE (Negative); Respiratory Syncytial Virus Ce NEGATIVE (Negative); SARS-CoV-2 PCR NEGATIVE (Negative)
--- NOTE | 2024-12-15 21:37 | ECG_ITS ---
[facility] Test Date: 2024-12-15 Pat Name: Karthik Gordon Department: Room: Gender: Male Clerical Associate: : 1955 Requested By: Juliette Vergara Order Number: [id number] Patti MD: Coco Yarbrough M.D. Measurements Intervals [place] Rate: 84 P: 162 NE: 190 QRS: 117 QRSD: 104 T: 132 QT: 398 QTc: 472 Interpretive Statements SINUS RHYTHM ARM LEADS REVERSED [INVERTED P AND QRS IN I] Compared to ECG 12/15/2024 19:47:57 No significant changes Electronically Signed On 12-16-2024 08:55:45 CDT by Coco Yarbrough M.D. [email or web address]
--- NOTE | 2024-12-15 21:53 | PC.NURSE ---
pt refusing to provide a urine sample. when told we would need to do a quick catheter, pt states you're a bitch and you will not put a catheter in me .
[2024-12-15 21:57] LABS: Reflex Lactate Order REFLEX LACTIC ORDERD
--- NOTE | 2024-12-15 21:59 | PM.HP ---
Providers/Chief Complaint Primary Care Provider: Liya Huerta MD Chief Complaint: weakness History of Present Illness Karthik Gordon is a 69 year old male with a past medical history of 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, clinical stage IIIa, on concurrent radiation therapy, weekly gemcitabine, last round of chemotherapy was over 2 weeks ago, history of atrial fibrillation on Eliquis, history of pulmonary embolism on Eliquis, cancer cachexia, cancer pain, CAD, COPD, hyperlipidemia who presents [facility] due to weakness, fatigue, shortness of breath, cough. Patient was seen, blood pressure 94/62, heart rates in the 90s, on 10 L nasal cannula, O2 sats in the low 90s, he is alert oriented x 3, following commands, does have moderate respiratory distress nasal flaring, intercostal retractions suprasternal retractions, tachypnea, currently in septic shock, receiving a sepsis bolus. According to patient, he has been increasingly short of breath, weakness, fatigue, no nausea, no vomiting, no lightheadedness or dizziness, no fevers, no chills, no diarrhea, he uses 2 L nasal cannula at home, on arrival he was placed on 6 L O2 sats in the 70s, turned up to 15 L nonrebreather, now on 10 L high flow nasal cannula. Medications/Allergies Home Medications ?Medication ?Instructions ?Recorded ?Confirmed ?Last Taken ?Type albuterol sulfate 90 mcg/actuation 2 puff inhalation Q6H PRN 08/09/24 12/14/24 Unknown Rx aerosol inhaler shortness of breath or wheezing #6.7 grams apixaban 5 mg tablet (Eliquis) 5 mg PO BID #60 tabs 09/26/24 12/14/24 11/17/24 Rx clopidogrel 75 mg tablet 75 mg PO DAILY #90 tabs 09/26/24 12/14/24 11/17/24 Rx escitalopram oxalate 10 mg tablet 10 mg PO DAILY #30 tabs 09/26/24 12/14/24 11/17/24 Rx lorazepam 1 mg tablet 0.5 - 1 mg (0.5 - 1 x 1 mg) PO Q6H 10/03/24 12/14/24 Unknown Rx PRN severe nausea #30 tabs ondansetron HCl 4 mg tablet 4 mg PO Q6H PRN nausea and 10/03/24 12/14/24 Unknown Rx vomiting #30 tabs prochlorperazine maleate 10 mg 10 mg PO Q4H PRN mild nausea #30 10/03/24 12/14/24 Unknown Rx tablet (Compazine) tabs furosemide 20 mg tablet 20 mg PO BID #60 tabs 10/10/24 12/14/24 11/17/24 Rx Portable oxygen concentrator and #1 ea 10/13/24 12/14/24 Unknown Rx supplies polyethylene glycol 3350 17 17 g PO DAILY PRN Constipation 10/27/24 12/14/24 10/25/24 History gram/dose oral powder (Miralax) amiodarone 200 mg tablet See Rx Instructions .Route 11/04/24 12/14/24 11/17/24 Rx .COMPLEX #60 tabs famotidine 20 mg tablet 20 mg PO BID #60 tabs 11/14/24 12/14/24 11/17/24 Rx morphine 60 mg tablet,extended 60 mg PO Q12H 30 days #60 tabs 11/29/24 12/14/24 Unknown Rx release oxycodone-acetaminophen 10 mg-325 1 tab PO Q8H PRN pain 30 days #60 11/29/24 12/14/24 Unknown Rx mg tablet (Percocet) tabs Allergies Allergy/AdvReac Type Severity Reaction Status Date / Time Penicillins Allergy Unknown ALGY-Swell Verified 12/14/24 08:28 Lip/Tongue/Throat PFSH Acute PFSH: Medical History Osteoporosis Pneumonia Opioid-induced constipation Pulmonary embolism Spinal stenosis Port-A-Cath in place but then had removed Compression fracture of T7 vertebra Cavitary lesion of lung Constipation Cancer related pain Non-small cell lung cancer Immunosuppressed due to chemotherapy Drug or medicinal substance causing adverse effect in therapeutic use Antineoplastic chemotherapy induced anemia Chemotherapy-induced vomiting Secondary malignant neoplasm of mediastinum Chemotherapy management, encounter for Malignant neoplasm of overlapping sites of right lung Lung cancer metastatic to bone GI (gastrointestinal bleed) Mass of right lung Bilateral direct inguinal hernia CAD (coronary artery disease) Tobacco abuse PAD (peripheral artery disease) Erectile 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 COPD (chronic obstructive pulmonary disease) Hyperlipidemia Surgical History History of back surgery Status post peripheral artery angioplasty with insertion of stent History of angioplasty of peripheral vessel History of right shoulder replacement History of chest tube placement History of laparoscopic cholecystectomy Family History Father Diabetes Brother , AGE 60 CAD (coronary artery disease) Myocardial infarction Mother Diabetes Grandfather Diabetes MATERNAL Grandmother Diabetes MATERNAL Social History Smoking and tobacco/nicotine status: former use of tobacco/nicotine Quit status (tobacco/nicotine): has quit using Year quit tobacco: 2022 Former quit date comment: has had no cigarette tobacco for 10 days/smoked for 50 years Alcohol intake: former Substance/Drug Use: current Substance/Drug use frequency: few times a week Household members: none Marital status: Number of children: 1 service: No 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 kings 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: No Vitals/I&O/Wt Last Vital Signs Temp 97.7 F 12/15/24 19:45 Pulse 90 12/15/24 21:30 Resp 16 12/15/24 21:30 BP 114/66 12/15/24 21:30 Pulse Ox 92 12/15/24 21:30 O2 Del Method High Flow Nasal Cannula 12/15/24 21:15 O2 Flow Rate 10 12/15/24 21:02 12/15/24 12/15/24 12/15/24 06:59 14:59 22:59 Intake Total 500 / 500 Balance 500 / 500 Weight last 48 hrs Weight 79.379 kg Physical Exam Const: GENERAL APPEARANCE: in distress, ill appearing and frail appearing NUTRITIONAL APPEARANCE: cachectic ORIENTATION/CONSCIOUSNESS: Yes awake, Yes oriented to person, Yes oriented to place and Yes oriented to time HENMT: COMMON NORMALS: normocephalic HEAD & SCALP: normocephalic Eye: COMMON NORMALS: Equal, round and reactive pupils present Neck/C-Spine: COMMON NORMALS: no JVD Lymph: LYMPHATIC: no lymphadenopathy noted Resp: EFFORT & INSPECTION: Yes abnormal respiratory pattern, Yes tachypneic, Yes respiratory distress, Yes Actively coughing, Yes retractions and Yes uses accessory muscles AUSCULTATION: crackles and wheezes Cardio: COMMON NORMALS: regular rate, regular rhythm, S1 normal heart sound present and S2 normal heart sound present RATE: regular rate RHYTHM: regular rhythm HEART SOUNDS: S1 normal heart sound present and S2 normal heart sound present GI: COMMON NORMALS: Normal to inspection, nondistended, normoactive bowel sounds present, Soft to palpation and non-tender : COMMON NORMALS: Yes no CVA tenderness Neuro: COMMON NORMALS: CN's II-XII intact bilaterally and moves all extremities Sepsis: Is patient septic: Yes Focused sepsis exam performed: Yes Focused sepsis exam: DP PT pulses palpable, cap refill greater than 2 seconds, no mottling Date exam was performed: 12/15/24 Time exam was performed: 21:30 Data 12/15/24 19:40 12/15/24 19:40 Micro: Microbiology 12/15/24 19:58 Blood Culture - Preliminary Blood SPECIMEN COLLECTED 12/15/24 19:58 Blood Culture - Preliminary Blood SPECIMEN COLLECTED A&P Assessment and plan (1) Septic shock: (2) Acute hypoxic respiratory failure: (3) Pneumonia: (4) Acute respiratory distress: Plan Acute hypoxic respiratory failure - With acute respiratory distress - With immunocompromise state - With history of lung cancer on chemoradiation - With underlying pneumonia Plan - Admit to ICU - Monitor respiratory status closely - Will consider BiPAP based on clinical progress - DuoNeb - Budesonide - Sputum culture - Blood cultures - Meropenem - Vancomycin -Continue Solu-Medrol - Monitor respiratory status closely - Discussed patient's CODE STATUS in detail, patient is a DNR, DNI, discussed with patient multiple times, we discussed if his respiratory status worsens, and if all other medical interventions have failed, would he want us to intubate him to save his life if that was the only option, he declined, he would rather pass away comfortably Eliquis for DVT prophylaxis Protonix for GI prophylaxis Septic shock - Secondary to pneumonia - Working on a sepsis bolus - Midodrine 10 every 6 hours - Consider Levophed to maintain MAP greater than 65 - Albumin therapy Chronic pain, cancer pain, continue home oxycodone, morphine Atrial fibrillation, continue Eliquis, amiodarone PDMP PDMP Reviewed: Last Reviewed 12/15/24 21:52 by Larry Armendariz MD Attestations Medical Necessity Statement*: Patient requires hospitalization, inpatient, greater than 2 minutes, for septic shock, acute respiratory failure, pneumonia Diagnoses Septic shock A41.9; R65.21 Acute hypoxic respiratory failure J96.01 Pneumonia J18.9 Acute respiratory distress R06.03
--- NOTE | 2024-12-15 22:00 | PHA.VACGOAL ---
Vancomycin Goal - Goal Vancomycin Goal:: 15-20 mg/L Vancomycin Indication:: Pneumonia - Therapy Day of therpy:: Day []of [] . Actual body weight (kg): 175 lb - Data Labs: WBC 4.23 10^3/uL (3.29-11.43) 12/15/24 19:40 RBC 3.55 10^6/uL (3.85-5.65) L 12/15/24 19:40 Hgb 10.10 g/dL (11.27-16.99) L 12/15/24 19:40 Hct 32.5 % (37-53) L 12/15/24 19:40 MCV 91.5 fl (82-101) 12/15/24 19:40 MCH 28.5 pg (27-33) 12/15/24 19:40 MCHC 31.1 g/dL (30-55) 12/15/24 19:40 RDW 14.0 % (12.1-15.1) 12/15/24 19:40 Sodium 135 mmol/L (136-145) L 12/15/24 19:40 Potassium 4.3 mmol/L (3.5-5.1) 12/15/24 19:40 Chloride 93 mmol/L (98-107) L 12/15/24 19:40 Carbon Dioxide 26 mmol/L (22-29) 12/15/24 19:40 Anion Gap 20.3 (5-19) H 12/15/24 19:40 BUN 19 mg/dL (8-23) 12/15/24 19:40 Creatinine 0.9 mg/dL (0.7-1.2) 12/15/24 19:40 GFR Calculation 83.4 mL/min (90-130) L 12/15/24 19:40 Treatment plan:: new consult Regimen:: 2000 MG LOAD 1000 MG Q12H MAINT
[2024-12-15 22:34] LABS: Troponin 5 2HR 36.19 ng/L (0-15)
[2024-12-15 22:36] LABS: Troponin 5 2HR Delta -8.81 ABS# (0-10)
[2024-12-15 23:14] LABS: Lactic Acid level (Lactate) 1.3 mmol/L (0.5-2.2)
[2024-12-15 23:22] LABS: Thyroid Stimulating Hormone 1.88 uIU/mL (0.27-4.20)
[2024-12-15] MEDS: pantoprazole 40 mg SDV IVP (23:31)
[2024-12-15] MEDS: vancomycin 2,000 MG/400 ML PIGGYBACK 200 MG IV (23:31)
[2024-12-15] MEDS: morphine ER (12 HR) 30 mg tablet 60 MG PO (23:32)
[2024-12-15] MEDS: apixaban 5 mg Tablet PO (23:32)
[2024-12-16] VITALS (63 sets, daily range): BP systolic 111–149; BP diastolic 62–91; PULSE 60–89; RESP 8–25; TEMP 36.1–37.1; O2SAT 84–99
[2024-12-16 01:33] LABS: Basophils % 0.3 %; Hematocrit 25.1 % (37-53); Lymphocytes # 0.1 10^3/uL (0.8-4.8); Lymphocytes % 2.7 %; Mean Corpuscular HGB Conc 31.1 g/dL (30-55); Mean Corpuscular Hemoglobin 28.3 pg (27-33); Mean Corpuscular Volume 90.9 fl (82-101); Mean Platelet Volume 10.9 fL (7.4-10.4); Monocytes # 0.4 10^3/uL (0.2-0.9); Monocytes % 11.2 %; Neutrophils % 85.3 %; Nucleated Red Blood Cells % 0 %; Platelet Count 101 10^3/cmm (157-399); Red Blood Count 2.76 10^6/uL (3.85-5.65); Red Cell Distribution Width 14.2 % (12.1-15.1); White Blood Count 3.75 10^3/uL (3.29-11.43)
--- NOTE | 2024-12-16 01:36 | ECG_ITS ---
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 Measurements Intervals [place] Rate: 76 P: 79 LA: 209 QRS: 82 QRSD: 100 T: 86 QT: 410 QTc: 463 Interpretive Statements SINUS RHYTHM NONSPECIFIC T-WAVE ABNORMALITY Compared to ECG 12/15/2024 21:37:57 T-wave abnormality now present Electronically Signed On 12-16-2024 08:55:35 CDT by Coco Yarbrough M.D. [email or web address] [id number]
[2024-12-16] MEDS: albumin 25 G/100 ML BAG 60 G IV ×3 (01:55→17:20)
[2024-12-16 01:57] LABS: Troponin 5 6HR 33.75 ng/L (0-15)
[2024-12-16 02:02] LABS: Alanine Aminotransferase 27 U/L (0-41); Alkaline Phosphatase 195 U/L (40-130); Anion Gap 15.1 (5-19); Aspartate Amino Transferase 28 U/L (0-40); Blood Urea Nitrogen 18 mg/dL (8-23); C Reactive Protein 132.6 mg/L (0.0-4.9); Calcium 7.7 mg/dL (8.5-10.5); Carbon Dioxide 26 mmol/L (22-29); Chloride 99 mmol/L (98-107); Creatinine Clr Calc Pharmacy 86.7849; Globulin 2.4 g/dL (1.3-4.6); Glomerular Filtration Rate 95.6 mL/min (90-130); Glucose 133 mg/dL (65-115); Osmolality Calculated 286 mOsm/kg (285-295); Potassium 4.1 mmol/L (3.5-5.1); Sodium 136 mmol/L (136-145); Total Bilirubin 0.8 mg/dL (0.15-1.2); Total Protein 5.4 g/dL (6.6-8.7)
[2024-12-16 02:03] LABS: Troponin 5 6HR Delta -11.25 ng/L (0-12)
[2024-12-16 02:06] LABS: Procalcitonin 0.49 ng/mL (0-0.5)
[2024-12-16 02:07] LABS: Slide Review Slide Review Perform
--- NOTE | 2024-12-16 03:03 | PC.NURSE ---
Report given to WERNER Bailon in ICU 0245. Patient and belongings transported to ICU at 0300.
[2024-12-16] MEDS: meropenem 500 mg SDV IVP ×3 (05:00→19:28)
[2024-12-16] MEDS: methylPREDNISolone sod succ 40 mg/mL INJ IVP ×3 (05:53→21:42)
[2024-12-16] MEDS: midodrine 5 mg TABLET 10 MG PO ×2 (05:53→23:00)
[2024-12-16 06:24] LABS: ABG PCO2 55.6 mmHg (35-45); ABG PH Result 7.35 (7.35-7.45); Arterial Blood Gas Hematocrit 27.9 % (42-52); Blood Gas Allen Test Pos; Blood Gas Operator Identificat SAM; Blood Gas Sample Site Radial, right; Blood Gas Sample Type Arterial; HCO3 ABG 30.4 mmol/L (22-26); Oxygen Device NC; PO2 ABG 84.6 mmHg (80.0-100.0)
[2024-12-16] MEDS: amiodarone 200 mg Tablet PO (08:23)
[2024-12-16] MEDS: apixaban 5 mg Tablet PO ×2 (08:23→17:20)
[2024-12-16] MEDS: calcium gluconate 0.9% NaCL 1 GM/50 ML PREMIX IV (08:23)
[2024-12-16] MEDS: escitalopram 10 mg Tablet PO (08:23)
[2024-12-16] MEDS: clopidogrel 75 mg Tablet PO (08:23)
[2024-12-16] MEDS: VANCOMYCIN ADD-Vantage 1,000 MG in 0.9% NaCl ADD-Vantage 250 ML 250 MG IV ×2 (10:12→21:43)
[2024-12-16] MEDS: oxyCODONE-APAP 10-325 mg Tablet 1 TAB PO ×2 (10:14→21:43)
--- NOTE | 2024-12-16 12:17 | P.PN_ITS ---
Subjective 2 Subjective: Seen him at bedside this morning. He feels better as compared to arrival to the hospital. No acute overnight events noted Medications: Reviewed: Yes Vitals/I&O/Wt Last Vital Signs Temp 97.8 F 12/16/24 11:00 Pulse 63 12/16/24 11:00 Resp 15 12/16/24 11:00 BP 145/82 12/16/24 11:00 Pulse Ox 94 12/16/24 11:00 O2 Del Method High Flow Nasal Cannula 12/16/24 11:00 O2 Flow Rate 15 12/16/24 11:00 FiO2 60 12/16/24 01:41 12/15/24 12/16/24 12/16/24 22:59 06:59 14:59 Intake Total 2300 / 2300 1340 / 3640 350 / 350 Output Total 600 / 600 200 / 200 Balance 2300 / 2300 740 / 3040 150 / 150 Weight last 48 hrs Weight 63 kg Weight 79.379 kg Weight 62.142 kg Weight 79.379 kg Physical Exam 2 Narrative: He is alert awake oriented x 3, not in acute distress Chest air entry equal on both sides, coarse rhonchi present diffusely, no wheezing Cardiovascular normal heart sounds no murmurs Abdomen soft nontender nondistended normal bowel sounds Extremities no edema noted bilateral lower extremity Data 12/16/24 01:27 12/16/24 01:27 Micro: Microbiology 12/15/24 19:58 Blood Culture - Preliminary Blood SPECIMEN COLLECTED 12/15/24 19:58 Blood Culture - Preliminary Blood SPECIMEN COLLECTED A&P Assessment and plan (1) Septic shock: (2) Acute hypoxic respiratory failure: (3) Pneumonia: (4) Acute respiratory distress: Plan Karthik Gordon is a 69 year old male with a past medical history of 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, clinical stage IIIa, on concurrent radiation therapy, weekly gemcitabine, last round of chemotherapy was over 2 weeks ago, history of atrial fibrillation on Eliquis, history of pulmonary embolism on Eliquis, cancer cachexia, cancer pain, CAD, COPD, hyperlipidemia who presents [facility] due to weakness, fatigue, shortness of breath, found to be hypotensive, hypoxic, in moderate respiratory distress likely secondary to septic shock #Acute hypoxic respiratory failure - With acute respiratory distress - With immunocompromise state - With history of lung cancer on chemoradiation - With underlying pneumonia Plan - Admit to ICU - Monitor respiratory status closely - Will consider BiPAP based on clinical progress - DuoNeb q6h - Budesonide bid - Sputum culture - Blood cultures - Meropenem - Vancomycin -Continue Solu-Medrol 40mg q8h - Monitor respiratory status closely - Discussed patient's CODE STATUS in detail, patient is a DNR, DNI, discussed with patient multiple times, we discussed if his respiratory status worsens, and if all other medical interventions have failed, would he want us to intubate him to save his life if that was the only option, he declined, he would rather pass away comfortably Eliquis for DVT prophylaxis Protonix for GI prophylaxis #Septic shock - Secondary to pneumonia - Working on a sepsis bolus - Midodrine 10 every 6 hours - Consider Levophed to maintain MAP greater than 65 - Albumin therapy #Chronic pain, cancer pain, continue home oxycodone, morphine #Atrial fibrillation, rate controlled continue Eliquis, amiodarone 12/16/24 As per the patient he received last radiation treatment 2 weeks ago for total of 15 treatments. Since then has been on IV chemotherapy once every 3 weeks. Last scheduled dose of chemo was yesterday 12/15. He reports has been independent with ADLs. Saturating well on 15 L nasal cannula, not in acute distress. WBCs 3.7, hemoglobin 7.8, platelets 101 Troponins 45, 36, 33, trending down. Likely secondary to sepsis. Will continue current management Continue to monitor in ICU PDMP PDMP Reviewed: Not Reviewed Attestations 2 Medical Necessity Statement*: Patient requires hospitalization, inpatient, greater than 2 midnights, for septic shock, acute respiratory failure, pneumonia Time Spent in Patient Care: 25minutes Coding Level of Care Code Acute Code for Chg Fwd Diagnoses Septic shock A41.9; R65.21 Acute hypoxic respiratory failure J96.01 Pneumonia J18.9 Acute respiratory distress R06.03 Time Spent (min) 25
--- NOTE | 2024-12-16 12:31 | PC.SOCIAL ---
IMM UPDATED IMM dated and initialed, copy given to patient and copy placed in chart.
--- NOTE | 2024-12-16 13:28 | PC.NURSE ---
Patient's blood pressure is 143/91 and is scheduled to get a dose of midodrine. Dr. Kendall was contacted and she ordered to hold the dose.
[2024-12-16] MEDS: ipratropium-albuterol 3 mL Neb INHALATION ×2 (13:45→16:49)
[2024-12-16 16:48] LABS: Bacteria Urine None Seen /hpf; RBC Urine 0-2 /hpf (0-2); Squamous Epithelial Cell Urine 0-5 /hpf (0-5); WBC Urine 0-5 /hpf (0-5)
[2024-12-16 16:52] LABS: Bilirubin Urine Negative (Negative); Blood Urine Negative (Negative); Glucose Urine UA Negative (Normal); Ketones Urine Trace (Negative); Leukocyte Esterase Urine Negative (Negative); Nitrate Urine Negative (Negative); Protein Urine Trace (Negative); Specific Gravity, Urine 1.023 (1.005-1.030); Urine Appearance Clear (CLEAR); Urine Color Dark Yellow (Yellow); pH Urine 5.5 (5-7)
[2024-12-16] MEDS: morphine ER (12 HR) 30 mg tablet 60 MG PO (19:28)
[2024-12-16] MEDS: ondansetron 2 mg/ML SDV 2 mL 4 MG IVP (20:48)
[2024-12-16] MEDS: pantoprazole 40 mg SDV IVP (22:53)
[2024-12-16] MEDS: HYDROmorphone 0.5 MG/0.5 ML INJ 1 MG IVP (23:29)
[2024-12-17] VITALS (39 sets, daily range): BP systolic 118–161; BP diastolic 63–91; PULSE 62–85; RESP 13–24; TEMP 36.6–36.7; O2SAT 82–98
[2024-12-17] MEDS: albumin 25 G/100 ML BAG 60 G IV ×2 (01:58→08:52)
[2024-12-17] MEDS: meropenem 500 mg SDV IVP ×3 (04:02→19:24)
[2024-12-17] MEDS: HYDROmorphone 0.5 MG/0.5 ML INJ 1 MG IVP (04:04)
[2024-12-17 04:12] LABS: Hematocrit 23.8 % (37-53); Lymphocytes # 0.1 10^3/uL (0.8-4.8); Lymphocytes % 2.7 %; Mean Corpuscular HGB Conc 31.1 g/dL (30-55); Mean Corpuscular Hemoglobin 28.2 pg (27-33); Mean Corpuscular Volume 90.8 fl (82-101); Mean Platelet Volume 10.8 fL (7.4-10.4); Monocytes # 0.3 10^3/uL (0.2-0.9); Monocytes % 10.2 %; Neutrophils # 2.88 10^3/uL (1.8-7.7); Neutrophils % 86.5 %; Nucleated Red Blood Cells % 0 %; Platelet Count 159 10^3/cmm (157-399); Red Blood Count 2.62 10^6/uL (3.85-5.65); Red Cell Distribution Width 13.9 % (12.1-15.1); White Blood Count 3.33 10^3/uL (3.29-11.43)
[2024-12-17 04:35] LABS: Anion Gap 14.1 (5-19); Blood Urea Nitrogen 20 mg/dL (8-23); Calcium 8.5 mg/dL (8.5-10.5); Carbon Dioxide 27 mmol/L (22-29); Chloride 99 mmol/L (98-107); Creatinine Clr Calc Pharmacy 78.8229; Glomerular Filtration Rate 164.4 mL/min (90-130); Glucose 123 mg/dL (65-115); Osmolality Calculated 286 mOsm/kg (285-295); Potassium 4.1 mmol/L (3.5-5.1); Sodium 136 mmol/L (136-145)
--- NOTE | 2024-12-17 05:26 | PC.NURSE ---
Pt c/o pain throughout shift. Pt given oral pain medicines he takes at home (see MAR). Dr. Armendariz contacted two times during shift for additional one time orders (See MAR). Pt continuing to c/o pain. Pt educated on medications given.
[2024-12-17] MEDS: methylPREDNISolone sod succ 40 mg/mL INJ IVP ×3 (05:45→21:12)
[2024-12-17] MEDS: oxyCODONE-APAP 10-325 mg Tablet 1 TAB PO ×2 (05:45→14:31)
[2024-12-17] MEDS: midodrine 5 mg TABLET 10 MG PO (06:32)
[2024-12-17] MEDS: morphine ER (12 HR) 30 mg tablet 60 MG PO ×2 (08:00→20:44)
[2024-12-17] MEDS: budesonide 0.5 mg/2 mL Neb INHALATION ×2 (08:07→20:19)
[2024-12-17] MEDS: ipratropium-albuterol 3 mL Neb INHALATION ×4 (08:07→20:19)
[2024-12-17] MEDS: apixaban 5 mg Tablet PO ×2 (08:37→17:29)
[2024-12-17] MEDS: escitalopram 10 mg Tablet PO (08:37)
[2024-12-17] MEDS: amiodarone 200 mg Tablet PO (08:37)
[2024-12-17] MEDS: clopidogrel 75 mg Tablet PO (08:37)
[2024-12-17] MEDS: VANCOMYCIN ADD-Vantage 1,000 MG in 0.9% NaCl ADD-Vantage 250 ML 250 MG IV ×2 (10:27→21:54)
[2024-12-17] MEDS: water for injection-sterile 10 ML 1000 ML (11:51)
--- NOTE | 2024-12-17 12:39 | P.PN_ITS ---
Subjective 2 Medications: Reviewed: Yes Vitals/I&O/Wt Last Vital Signs Temp 98 F 12/17/24 02:30 Pulse 69 12/17/24 11:33 Resp 16 12/17/24 11:33 BP 135/88 12/17/24 08:00 Pulse Ox 96 12/17/24 11:33 O2 Del Method High Flow Nasal Cannula 12/17/24 11:33 O2 Flow Rate 5 12/17/24 11:33 FiO2 60 12/16/24 01:41 12/16/24 12/17/24 12/17/24 22:59 06:59 14:59 Intake Total 150 / 500 350 / 850 660 / 660 Balance 150 / 300 350 / 650 660 / 660 Weight last 48 hrs Weight 66.5 kg Weight 63 kg Weight 79.379 kg Weight 62.142 kg Weight 79.379 kg Physical Exam 2 Narrative: He is alert awake oriented x 3, not in acute distress, pleasant Chest air entry equal on both sides, coarse rhonchi present diffusely, no wheezing Cardiovascular normal heart sounds no murmurs Abdomen soft nontender nondistended normal bowel sounds Extremities no edema noted bilateral lower extremity Data 12/17/24 04:04 12/17/24 04:04 Micro: Microbiology 12/15/24 19:58 Blood Culture - Preliminary Blood NEGATIVE TO DATE 12/15/24 19:58 Blood Culture - Preliminary Blood NEGATIVE TO DATE A&P Assessment and plan (1) Septic shock: (2) Acute hypoxic respiratory failure: (3) Pneumonia: (4) Acute respiratory distress: Plan Karthik Gordon is a 69 year old male with a past medical history of 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, clinical stage IIIa, on concurrent radiation therapy, weekly gemcitabine, last round of chemotherapy was over 2 weeks ago, history of atrial fibrillation on Eliquis, history of pulmonary embolism on Eliquis, cancer cachexia, cancer pain, CAD, COPD, hyperlipidemia who presents [facility] due to weakness, fatigue, shortness of breath, found to be hypotensive, hypoxic, in moderate respiratory distress likely secondary to septic shock #Acute hypoxic respiratory failure - With acute respiratory distress - With immunocompromise state - With history of lung cancer on chemoradiation - With underlying pneumonia Plan - Admit to ICU - Monitor respiratory status closely - Will consider BiPAP based on clinical progress - DuoNeb q6h - Budesonide bid - Sputum culture - Blood cultures - Meropenem - Vancomycin -Continue Solu-Medrol 40mg q8h - Monitor respiratory status closely - Discussed patient's CODE STATUS in detail, patient is a DNR, DNI, discussed with patient multiple times, we discussed if his respiratory status worsens, and if all other medical interventions have failed, would he want us to intubate him to save his life if that was the only option, he declined, he would rather pass away comfortably Eliquis for DVT prophylaxis Protonix for GI prophylaxis #Septic shock - Secondary to pneumonia - Working on a sepsis bolus - Midodrine 10 every 6 hours - Consider Levophed to maintain MAP greater than 65 - Albumin therapy #Chronic pain, cancer pain, continue home oxycodone, morphine #Atrial fibrillation, rate controlled continue Eliquis, amiodarone 12/16/24 As per the patient he received last radiation treatment 2 weeks ago for total of 15 treatments. Since then has been on IV chemotherapy once every 3 weeks. Last scheduled dose of chemo was yesterday 12/15. He reports has been independent with ADLs. Saturating well on 15 L nasal cannula, not in acute distress. WBCs 3.7, hemoglobin 7.8, platelets 101 Troponins 45, 36, 33, trending down. Likely secondary to sepsis. Will continue current management Continue to monitor in ICU 12/17/24 Acute hypoxic respiratory failure improving, improved from 15L to 5L per min. he sarabia been ambulating well without assistance. Hb 7.4, baseline is 9, will monitor for now. Blood pressure has been in 130s. Will hold midodrine and IV albumin, continue to monitor blood pressure. Continue to monitor in ICU. Anticipating discharge once oxygen requirement goes down to baseline at 2 L/min PDMP PDMP Reviewed: Not Reviewed Attestations 2 Medical Necessity Statement*: Patient requires hospitalization, inpatient, greater than 2 midnights, for septic shock, acute respiratory failure, pneumonia with IV antibiotics, supplemental oxygen and supportive care Time Spent in Patient Care: 15minutes Coding Level of Care Code Acute Code for Chg Fwd Diagnoses Septic shock A41.9; R65.21 Acute hypoxic respiratory failure J96.01 Pneumonia J18.9 Acute respiratory distress R06.03 Time Spent (min) 15
[2024-12-17] MEDS: MELATONIN 3 MG TABLET PO (20:45)
[2024-12-17 21:34] LABS: Vancomycin Trough 17.3 ug/mL (10-15)
[2024-12-17] MEDS: pantoprazole 40 mg SDV IVP (21:54)
[2024-12-18] VITALS (15 sets, daily range): BP systolic 128–172; BP diastolic 56–89; PULSE 68–83; RESP 14–28; TEMP 36.3–36.6; O2SAT 92–98
[2024-12-18] MEDS: meropenem 500 mg SDV IVP (03:29)
[2024-12-18] MEDS: oxyCODONE-APAP 10-325 mg Tablet 1 TAB PO (03:47)
[2024-12-18 04:42] LABS: Lymphocytes # 0.1 10^3/uL (0.8-4.8); Lymphocytes % 3.2 %; Mean Corpuscular HGB Conc 30.8 g/dL (30-55); Mean Corpuscular Hemoglobin 28.9 pg (27-33); Mean Corpuscular Volume 93.9 fl (82-101); Mean Platelet Volume 10.8 fL (7.4-10.4); Monocytes # 0.4 10^3/uL (0.2-0.9); Monocytes % 14.2 %; Neutrophils # 2.48 10^3/uL (1.8-7.7); Neutrophils % 80.3 %; Nucleated Red Blood Cells % 0.6 %; Platelet Count 217 10^3/cmm (157-399); Red Blood Count 2.77 10^6/uL (3.85-5.65); Red Cell Distribution Width 14.6 % (12.1-15.1); White Blood Count 3.09 10^3/uL (3.29-11.43)
[2024-12-18] MEDS: methylPREDNISolone sod succ 40 mg/mL INJ IVP (05:19)
--- NOTE | 2024-12-18 06:00 | XRR_ITS ---
PROCEDURE INFORMATION: Exam: XR Chest Exam date and time: 12/18/2024 7:47 AM Age: 69 years old Clinical indication: Condition or disease; Lung condition and disease; Pneumonia; Prior surgery; Surgery date: 6+ months; Surgery type: Heart; Additional info: Pneumonia follow up. History of lung cancer TECHNIQUE: Imaging protocol: Radiologic exam of the chest. Views: 1 view. COMPARISON: CR (CHEST, ) 12/15/2024 7:49 PM FINDINGS: Lungs: There is redemonstration of irregular masslike prominence right hilum presumed to represent site of patient's known bronchogenic malignancy. There is some adjacent indistinct peribronchial opacities more laterally in the right mid lung zone progressed from previous examination with additional indistinct peribronchial opacities left lower lung zone that have also developed likely infectious in nature representing combination of airways disease and patchy bronchopneumonia. Pleural spaces: Unremarkable. No pleural effusion. No pneumothorax. Heart/Mediastinum: Cardiac silhouette is borderline enlarged, unchanged. Bones/joints: There is evidence of previous vertebroplasty midthoracic spine and right shoulder replacement. XR/XR chest 1V portable [id number] IMPRESSION: 1. Stable masslike prominence right hilum presumably representing site of known bronchogenic malignancy. 2. Progressive peribronchial opacities right mid lung zone and left lower lobe likely infectious in nature.
[2024-12-18] MEDS: budesonide 0.5 mg/2 mL Neb INHALATION (07:53)
[2024-12-18] MEDS: ipratropium-albuterol 3 mL Neb INHALATION (07:53)
[2024-12-18] MEDS: apixaban 5 mg Tablet PO (09:33)
[2024-12-18] MEDS: escitalopram 10 mg Tablet PO (09:33)
[2024-12-18] MEDS: amiodarone 200 mg Tablet PO (09:33)
[2024-12-18] MEDS: clopidogrel 75 mg Tablet PO (09:34)
[2024-12-18] MEDS: morphine ER (12 HR) 30 mg tablet 60 MG PO (09:34)
--- NOTE | 2024-12-18 10:29 | P.DS_ITS ---
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 Patient was seen, blood pressure 94/62, heart rates in the 90s, on 10 L nasal cannula, O2 sats in the low 90s, he is alert oriented x 3, following commands, does have moderate respiratory distress nasal flaring, intercostal retractions suprasternal retractions, tachypnea, currently in septic shock, receiving a sepsis bolus. According to patient, he has been increasingly short of breath, weakness, fatigue, no nausea, no vomiting, no lightheadedness or dizziness, no fevers, no chills, no diarrhea, he uses 2 L nasal cannula at home, on arrival he was placed on 6 L O2 sats in the 70s, turned up to 15 L nonrebreather, now on 10 L high flow nasal cannula. 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, clinical stage IIIa, on concurrent radiation therapy, weekly gemcitabine, last round of chemotherapy was over 2 weeks ago, history of atrial fibrillation on Eliquis, history of pulmonary embolism on Eliquis, cancer cachexia, cancer pain, CAD, COPD, hyperlipidemia who presents [facility] due to weakness, fatigue, shortness of breath, found to be hypotensive, hypoxic, in moderate respiratory distress likely secondary to septic shock #Acute hypoxic respiratory failure - With acute respiratory distress - With immunocompromise state - With history of lung cancer on chemoradiation - With underlying pneumonia Plan - Admit to ICU - Monitor respiratory status closely - Will consider BiPAP based on clinical progress - DuoNeb q6h - Budesonide bid - Sputum culture - Blood cultures - Meropenem - Vancomycin -Continue Solu-Medrol 40mg q8h - Monitor respiratory status closely - Discussed patient's CODE STATUS in detail, patient is a DNR, DNI, discussed with patient multiple times, we discussed if his respiratory status worsens, and if all other medical interventions have failed, would he want us to intubate him to save his life if that was the only option, he declined, he would rather pass away comfortably Eliquis for DVT prophylaxis Protonix for GI prophylaxis #Septic shock - Secondary to pneumonia - Working on a sepsis bolus - Midodrine 10 every 6 hours - Consider Levophed to maintain MAP greater than 65 - Albumin therapy #Chronic pain, cancer pain, continue home oxycodone, morphine #Atrial fibrillation, rate controlled continue Eliquis, amiodarone 12/16/24 As per the patient he received last radiation treatment 2 weeks ago for total of 15 treatments. Since then has been on IV chemotherapy once every 3 weeks. Last scheduled dose of chemo was yesterday 12/15. He reports has been independent with ADLs. Saturating well on 15 L nasal cannula, not in acute distress. WBCs 3.7, hemoglobin 7.8, platelets 101 Troponins 45, 36, 33, trending down. Likely secondary to sepsis. Will continue current management Continue to monitor in ICU 12/17/24 Acute hypoxic respiratory failure improving, improved from 15L to 5L per min. he sarabia been ambulating well without assistance. Hb 7.4, baseline is 9, will monitor for now. Blood pressure has been in 130s. Will hold midodrine and IV albumin, continue to monitor blood pressure. Continue to monitor in ICU. Anticipating discharge once oxygen requirement goes down to baseline at 2 L/min 12/18/24 He is doing better clinically, hemodynamically stable. Oxygen requirement has improved and now at baseline 2LNC. Chest x ray reviewed personally, looks unchanged, but clinically better. hence will discharge with oral antibiotics for 2 weeks and follow up with oncology and PCP as outpatient. Physical Exam Narrative: He is alert awake oriented x 3, not in acute distress, pleasant Chest air entry equal on both sides, coarse rhonchi present diffusely, no wheezing Cardiovascular normal heart sounds no murmurs Abdomen soft nontender nondistended normal bowel sounds Extremities no edema noted bilateral lower extremity Discharge Data Studies Completed and Pending Completed Studies During Hospitalization Category Date Time Status XR chest 1V portable [id number] Routine Exams 12/18/24 06:00 Completed XR chest 1V portable [id number] Stat Exams 12/15/24 19:35 Completed Pending at discharge Category Date Time Status Blood Culture Stat Lab 12/15/24 19:58 Results Covid / Flu / RSV PCR Stat Lab 12/15/24 21:48 Uncollected Sputum Culture and Gram Stain Stat Lab 12/15/24 21:48 Uncollected Radiology Impressions Chest X-Ray 12/18/24 06:00 IMPRESSION: 1. Stable masslike prominence right hilum presumably representing site of known bronchogenic malignancy. 2. Progressive peribronchial opacities right mid lung zone and left lower lobe likely infectious in nature. Laboratory Results WBC 3.09 10^3/uL (3.29-11.43) L 12/18/24 04:33 RBC 2.77 10^6/uL (3.85-5.65) L 12/18/24 04:33 Hgb 8.00 g/dL (11.27-16.99) L 12/18/24 04:33 Hct 26.0 % (37-53) L 12/18/24 04:33 MCV 93.9 fl (82-101) 12/18/24 04:33 MCH 28.9 pg (27-33) 12/18/24 04:33 MCHC 30.8 g/dL (30-55) 12/18/24 04:33 RDW 14.6 % (12.1-15.1) 12/18/24 04:33 Plt Count 217 10^3/cmm (157-399) D 12/18/24 04:33 MPV 10.8 fL (7.4-10.4) H 12/18/24 04:33 Neut % (Auto) 80.3 % 12/18/24 04:33 Lymph % (Auto) 3.2 % 12/18/24 04:33 [place] % (Auto) 14.2 % 12/18/24 04:33 Eos % (Auto) 0.0 % 12/18/24 04:33 Baso % (Auto) 0.0 % 12/18/24 04:33 Neut # (Auto) 2.48 10^3/uL (1.8-7.7) 12/18/24 04:33 Lymph # (Auto) 0.1 10^3/uL (0.8-4.8) L 12/18/24 04:33 [place] # (Auto) 0.4 10^3/uL (0.2-0.9) 12/18/24 04:33 Eos # (Auto) 0.0 10^3/uL (0.0-0.8) 12/18/24 04:33 Baso # (Auto) 0.0 10^3/uL (0.0-0.1) 12/18/24 04:33 Nucleated RBC % (auto) 0.6 % 12/18/24 04:33 Nucleated RBCs # 0.0 /100WBC 12/18/24 04:33 Specimen Type Arterial 12/16/24 06:12 Sample Site Radial, right 12/16/24 06:12 ABG pH 7.35 (7.35-7.45) 12/16/24 06:12 ABG pCO2 55.6 mmHg (35-45) H 12/16/24 06:12 ABG pO2 84.6 mmHg (80.0-100.0) 12/16/24 06:12 ABG HCO3 30.4 mmol/L (22-26) H 12/16/24 06:12 ABG O2 Saturation 91.6 12/15/24 19:45 ABG Base Excess 4.0 mmol/L (-2.0-2.0) H 12/16/24 06:12 Michael Test Pos 12/16/24 06:12 A-a O2 Gradient 2.2 mmHg (5-10) L 12/15/24 19:45 Hematocrit 27.9 % (42-52) L 12/16/24 06:12 Hgb O2 Saturation 87.9 % (95-100) L 12/15/24 19:45 Carboxyhemoglobin 3.1 %THgb (0.4-20.1) 12/15/24 19:45 Methemoglobin 1.0 % (0.4-1.5) 12/15/24 19:45 Total Hemoglobin 8.9 g/dL (14-18) L 12/15/24 19:45 Sodium 134.0 mmol/L (131-143) 12/15/24 19:45 Potassium 3.6 mmol/L (3.5-5.0) 12/15/24 19:45 Glucose 103.0 mg/dL (70-115) 12/15/24 19:45 Ionized Calcium 1.2 mmol/L (1.1-1.4) 12/15/24 19:45 O2 Delivery Device Nc 12/16/24 06:12 O2 Liters/Min 15.0 % 12/16/24 06:12 Eight Arm Operator ID Ramy 12/16/24 06:12 Sodium 136 mmol/L (136-145) 12/17/24 04:04 Potassium 4.1 mmol/L (3.5-5.1) 12/17/24 04:04 Chloride 99 mmol/L (98-107) 12/17/24 04:04 Carbon Dioxide 27 mmol/L (22-29) 12/17/24 04:04 Anion Gap 14.1 (5-19) 12/17/24 04:04 BUN 20 mg/dL (8-23) 12/17/24 04:04 Creatinine 0.5 mg/dL (0.7-1.2) L 12/17/24 04:04 GFR Calculation 164.4 mL/min (90-130) H 12/17/24 04:04 Glucose 123 mg/dL (65-115) H 12/17/24 04:04 Calculated Osmolality 286 mOsm/kg (285-295) 12/17/24 04:04 Lactic Acid 4.0 mmol/L (0.5-2.2) H 12/15/24 19:40 Lactic Acid (Sepsis) 1.3 mmol/L (0.5-2.2) 12/15/24 22:50 Calcium 8.5 mg/dL (8.5-10.5) 12/17/24 04:04 Total Bilirubin 0.8 mg/dL (0.15-1.2) 12/16/24 01:27 AST 28 U/L (0-40) 12/16/24 01:27 ALT 27 U/L (0-41) 12/16/24 01:27 Alkaline Phosphatase 195 U/L (40-130) H 12/16/24 01:27 Troponin T Baseline 45 ng/L (0-15) H 12/15/24 19:40 Troponin T 120 Minute 36.19 ng/L (0-15) H 12/15/24 21:53 Delta Troponin T -8.81 ABS# (0-10) L 12/15/24 21:53 Troponin T Hi Sens 6Hr 33.75 ng/L (0-15) H 12/16/24 01:27 Troponin T Hi Sens 6Hr Delta -11.25 ng/L (0-12) L 12/16/24 01:27 C-Reactive Protein 132.6 mg/L (0.0-4.9) H 12/16/24 01:27 NT-Pro-B Natriuret Pep 1763 pg/mL (0-125) H 12/15/24 19:40 Total Protein 5.4 g/dL (6.6-8.7) L 12/16/24 01:27 Albumin 3.0 g/dL (3.5-5.2) L 12/16/24 01:27 Globulin 2.4 g/dL (1.3-4.6) 12/16/24 01: Lipase 16 U/L (13-60) 12/15/24 19:40 Procalcitonin 0.49 ng/mL (0-0.5) 12/16/24 01:27 TSH 1.88 uIU/mL (0.27-4.20) 12/15/24 19:40 Urine Color Dark yellow (Yellow) A 12/16/24 15:25 Urine Appearance Clear (CLEAR) 12/16/24 15:25 Urine pH 5.5 (5-7) 12/16/24 15:25 Ur Specific [place] 1.023 (1.005-1.030) 12/16/24 15:25 Urine Protein Trace (Negative) A 12/16/24 15:25 Urine Glucose (UA) Negative (Normal) 12/16/24 15:25 Urine Ketones Trace (Negative) 12/16/24 15:25 Urine Blood Negative (Negative) 12/16/24 15:25 Urine Nitrate Negative (Negative) 12/16/24 15:25 Urine Bilirubin Negative (Negative) 12/16/24 15:25 Urine Urobilinogen 2.0 mg/dL (Negative) H 12/16/24 15:25 Ur Leukocyte Esterase Negative (Negative) 12/16/24 15:25 Urine RBC 0-2 /hpf (0-2) 12/16/24 15:25 Urine WBC 0-5 /hpf (0-5) 12/16/24 15:25 Ur Squamous Epith Cells 0-5 /hpf (0-5) 12/16/24 15:25 Amorphous Sediment Not Reportable 12/16/24 15:25 Urine Bacteria None seen /hpf (NONE) 12/16/24 15:25 Hyaline Casts 3.30 /lpf 12/16/24 15:25 Vancomycin Trough 17.3 ug/mL (10-15) H 12/17/24 20:56 Influenza A (PCR) Negative (Negative) 12/15/24 20:00 Influenza Type B (PCR) Negative (Negative) 12/15/24 20:00 RSV (PCR) Negative (Negative) 12/15/24 20:00 SARS-CoV-2 (PCR) Negative (Negative) 12/15/24 20:00 Vitals Last Vital Signs Temp 97.3 F L 12/18/24 03:00 Pulse 83 12/18/24 09:00 Resp 18 12/18/24 09:34 BP 161/86 12/18/24 07:00 Pulse Ox 94 12/18/24 09:34 O2 Del Method Nasal Cannula 12/18/24 07:55 O2 Flow Rate 2 12/18/24 07:55 FiO2 60 12/16/24 01:41 Discharge Plan Discharge Patient Disposition: Home Condition: Stable Prescriptions: New melatonin 3 mg Tablet 3 mg PO BEDTIME PRN (Reason: Sleep) 15 Days Qty: 15 0RF levofloxacin 750 mg tablet 750 mg PO DAILY 14 Days Qty: 14 0RF ipratropium-albuterol 0.5 mg-3 mg(2.5 mg base)/3 mL solution for nebulization 3 ml inhalation Q6H PRN (Reason: shortness of breath or wheezing) Qty: 90 0RF prednisone 10 mg tablet 10 mg PO DIRECTED Qty: 60 0RF Rx Instructions: see taper instructions 60mg for 2 days, 50mg for 2 days, 40mg for 2 days, 30mg for 2 days, 20mg for 2 days and 10mg for 2 days Continued famotidine 20 mg tablet 20 mg PO BID Qty: 60 0RF morphine 60 mg tablet extended release 60 mg PO Q12H 30 Days Qty: 60 0RF oxycodone-acetaminophen [Percocet] 10-325 mg tablet 1 tab PO Q8H PRN (Reason: pain) 30 Days Qty: 60 0RF escitalopram oxalate 10 mg tablet 10 mg PO DAILY Qty: 30 2RF clopidogrel 75 mg tablet 75 mg PO DAILY Qty: 90 3RF Eliquis 5 mg tablet 5 mg PO BID Qty: 60 0RF albuterol sulfate 90 mcg/actuation HFA aerosol inhaler 2 puff INHALATION Q6H PRN (Reason: shortness of breath or wheezing) Qty: 6.7 1RF ondansetron HCl 4 mg tablet 4 mg PO Q6H PRN (Reason: nausea and vomiting) Qty: 30 3RF prochlorperazine maleate [Compazine] 10 mg tablet 10 mg PO Q4H PRN (Reason: mild nausea) Qty: 30 3RF lorazepam 1 mg tablet 0.5 - 1 mg PO Q6H PRN (Reason: severe nausea) Qty: 30 3RF furosemide 20 mg tablet 20 mg PO BID Qty: 60 0RF (DME) Portable oxygen concentrator and supplies See Rx Instructions .Route .MEDSUPPLY Qty: 1 0RF Rx Instructions: As directed polyethylene glycol 3350 [Miralax] 17 gram/dose powder 17 g PO DAILY PRN (Reason: Constipation) Rx Instructions: Mix well into any liquid but water amiodarone 200 mg tablet See Rx Instructions .ROUTE .COMPLEX Qty: 60 0RF Rx Instructions: 1 tab twice daily for 7 days, then 1 tab daily Discharge Orders: Discharge Order (Routine); Ordered 12/18/24 Ordered By: Elise Kendall Referrals: Blake Treadwell MD [Hospitalist] - 12/26/24 Liya Huerta MD [Primary Care Provider] - 12/27/24 Discharge Diet: Cardiac Discharge Activity: Increase activity as tolerated Patient Instructions: Viral Pneumonia (DC), Sepsis (GEN), Hypoxia (GEN), Acute Respiratory Failure (GEN), Opioid Safety Discharge Attestations Time Spent in Discharge Care*: less than 30 min Status at Discharge: Cognitive status at discharge: cognitively intact , Behavioral status at discharge: cooperative , Quality Metrics Clinical Quality Measures [ No reported AMI, CVA or VTE this stay] Coding Level of Care Code Acute Code for Chg Fwd Diagnoses Septic shock A41.9; R65.21 Acute hypoxic respiratory failure J96.01 Pneumonia J18.9 Acute respiratory distress R06.03 Time Spent (min) 25
== END 2024-12-18 11:50 | disposition home or self-care (01) | DRG 871 ==
LOC: ER 21:12 → MEDSURG 22:19 → ICU 12-16 03:13
PROVIDERS: Admitting Provider Family Medicine; Emergency Provider Emergency Medicine; PCP Family Medicine; Visit Provider Internal Medicine
DX: A41.9 Sepsis, unspecified organism (principal); J18.9 Pneumonia, unspecified organism; J96.21 Acute and chronic respiratory failure with hypoxia; R65.21 Severe sepsis with septic shock; J96.11 Chronic respiratory failure with hypoxia; J44.0 Chronic obstructive pulmonary disease with (acute) lower respiratory infection; J44.1 Chronic obstructive pulmonary disease with (acute) exacerbation; C34.11 Malignant neoplasm of upper lobe, right bronchus or lung; R64 Cachexia; G89.4 Chronic pain syndrome; Z86.711 Personal history of pulmonary embolism; Z79.01 Long term (current) use of anticoagulants; I25.10 Atherosclerotic heart disease of native coronary artery without angina pectoris; Z99.81 Dependence on supplemental oxygen; Z87.891 Personal history of nicotine dependence; Z79.899 Other long term (current) drug therapy; Z66 Do not resuscitate; Z79.891 Long term (current) use of opiate analgesic; I48.91 Unspecified atrial fibrillation
CPT/HCPCS: 36415; 36600; 71045; 80048; 80051; 80053; 80202; 81001; 82330; 82803; 82805; 83605; 83690; 83880; 84145; 84443; 84484; 85025; 86140; 87040; 87637; 93005; 94640; 96365; 96367; 96374; 96375; 96376; 99285; 99291; J0612; J1171; J2020; J2185; J2405; J2470; J2919; J3370; J3372; J7030; J7040; J7050; J7613; J7626; J9999; P9046

== ENCOUNTER 2024-12-27 07:30 | Oncology outpatient (recurring) (ONCR) | payer MEDICARE, SELFPAY ==
[2024-11-29 08:59] LABS: Basophils % 0.9 %; Eosinophils % 1.1 %; Lymphocytes # 0.5 10^3/uL (0.8-4.8); Lymphocytes % 13.5 %; Mean Corpuscular HGB Conc 30.5 g/dL (30-55); Mean Corpuscular Volume 95.2 fl (82-101); Mean Platelet Volume 9.4 fL (7.4-10.4); Monocytes # 0.3 10^3/uL (0.2-0.9); Monocytes % 9.7 %; Neutrophils % 74.5 %; Nucleated Red Blood Cells % 0 %; Platelet Count 291 10^3/cmm (157-399); Red Cell Distribution Width 14.6 % (12.1-15.1); White Blood Count 3.49 10^3/uL (3.29-11.43)
[2024-11-29 09:14] LABS: Alanine Aminotransferase 27 U/L (0-41); Albumin Level 3.4 g/dL (3.5-5.2); Alkaline Phosphatase 111 U/L (40-130); Anion Gap 14.4 (5-19); Aspartate Amino Transferase 15 U/L (0-40); Blood Urea Nitrogen 13 mg/dL (8-23); Calcium 8.6 mg/dL (8.5-10.5); Carbon Dioxide 28 mmol/L (22-29); Chloride 99 mmol/L (98-107); Glomerular Filtration Rate 111.5 mL/min (90-130); Glucose 69 mg/dL (65-115); Osmolality Calculated 284 mOsm/kg (285-295); Potassium 3.4 mmol/L (3.5-5.1); Sodium 138 mmol/L (136-145); Total Bilirubin 0.6 mg/dL (0.15-1.2); Total Protein 6.4 g/dL (6.6-8.7)
[2024-11-29] MEDS: sodium chloride 0.9% 1,000 ML 999 ML IV (09:16)
[2024-11-29 09:17] VITALS: RESP 17
[2024-11-29] MEDS: morphine 4 mg/mL SDV 1 mL 2 MG IVP (09:17)
[2024-11-29] MEDS: sodium chloride 0.9% 250 ML 75 ML IV (11:27)
[2024-11-29] MEDS: ondansetron 2 mg/ML SDV 2 mL 8 MG IVP (11:28)
[2024-11-29] MEDS: gemcitabine 1,800 MG in sodium chloride 0.9% (100 ml) 100 ML 294.68 MG IV (11:56)
[2024-11-29 13:03] VITALS: BP 157/87; PULSE 74; RESP 18; TEMP 36.4; O2SAT 92
[2024-12-07 08:02] LABS: Basophils % 0.5 %; Eosinophils % 1.1 %; Hematocrit 39.7 % (37-53); Lymphocytes # 0.3 10^3/uL (0.8-4.8); Lymphocytes % 18.7 %; Mean Corpuscular Hemoglobin 28.5 pg (27-33); Mean Corpuscular Volume 91.9 fl (82-101); Mean Platelet Volume 9.2 fL (7.4-10.4); Monocytes # 0.1 10^3/uL (0.2-0.9); Monocytes % 5.5 %; Neutrophils # 1.34 10^3/uL (1.8-7.7); Neutrophils % 73.7 %; Nucleated Red Blood Cells % 0 %; Platelet Count 131 10^3/cmm (157-399); Red Blood Count 4.32 10^6/uL (3.85-5.65); Red Cell Distribution Width 13.9 % (12.1-15.1); White Blood Count 1.82 10^3/uL (3.29-11.43)
[2024-12-07 08:19] LABS: Alanine Aminotransferase 65 U/L (0-41); Albumin Level 3.7 g/dL (3.5-5.2); Alkaline Phosphatase 186 U/L (40-130); Aspartate Amino Transferase 66 U/L (0-40); Blood Urea Nitrogen 9 mg/dL (8-23); Carbon Dioxide 27 mmol/L (22-29); Chloride 99 mmol/L (98-107); Glomerular Filtration Rate 133.2 mL/min (90-130); Glucose 83 mg/dL (65-115); Osmolality Calculated 284 mOsm/kg (285-295); Sodium 138 mmol/L (136-145); Total Bilirubin 0.6 mg/dL (0.15-1.2); Total Protein 7.7 g/dL (6.6-8.7)
[2024-12-07 08:21] LABS: Anion Gap 16.4 (5-19); Potassium 4.4 mmol/L (3.5-5.1)
[2024-12-07] MEDS: sodium chloride 0.9% 250 ML 75 ML IV (09:37)
[2024-12-07] MEDS: ondansetron 2 mg/ML SDV 2 mL 8 MG IVP (09:38)
[2024-12-07] MEDS: gemcitabine 1,800 MG in sodium chloride 0.9% (100 ml) 100 ML 294.68 MG IV (10:08)
[2024-12-14 08:30] LABS: Hematocrit 33.5 % (37-53); Mean Corpuscular HGB Conc 31.6 g/dL (30-55); Mean Corpuscular Hemoglobin 28.3 pg (27-33); Mean Corpuscular Volume 89.3 fl (82-101); Mean Platelet Volume 10.1 fL (7.4-10.4); Platelet Count 93 10^3/cmm (157-399); Red Blood Count 3.75 10^6/uL (3.85-5.65); Red Cell Distribution Width 13.9 % (12.1-15.1); White Blood Count 1.74 10^3/uL (3.29-11.43)
[2024-12-14 08:48] LABS: Alanine Aminotransferase 37 U/L (0-41); Albumin Level 3.4 g/dL (3.5-5.2); Alkaline Phosphatase 231 U/L (40-130); Anion Gap 18.7 (5-19); Aspartate Amino Transferase 42 U/L (0-40); Blood Urea Nitrogen 13 mg/dL (8-23); Calcium 8.9 mg/dL (8.5-10.5); Carbon Dioxide 26 mmol/L (22-29); Chloride 95 mmol/L (98-107); Creatinine Clr Calc Pharmacy 72.7635; Globulin 3.9 g/dL (1.3-4.6); Glomerular Filtration Rate 95.6 mL/min (90-130); Glucose 111 mg/dL (65-115); Osmolality Calculated 283 mOsm/kg (285-295); Potassium 3.7 mmol/L (3.5-5.1); Sodium 136 mmol/L (136-145); Total Bilirubin 1.3 mg/dL (0.15-1.2); Total Protein 7.3 g/dL (6.6-8.7)
[2024-12-14 09:05] LABS: Slide Review Slide Review Perform; Total Cells Counted 100 (0-100)
[2024-12-14 09:06] LABS: Absolute Neutrophil 1.4 10^3/cmm (1.4-6.5); Absolute Segmented Neutrophil 1.1 10/cmm (1.6-7.1); Band Neutrophils Absolute 0.3 10^3/cmm (0.0-1.2); Eosinophils 0 %; Lymphocytes 11 %; Lymphocytes Absolute 0.2 10^3/cmm (1.2-3.4); Macrocytosis Trace; Platelet Estimate Decreased (Normal); Polychromasia Trace; Segmented Neutrophils 64 %
== END 2024-12-28 23:59 | disposition home or self-care (01) ==
PROVIDERS: Nurse Practitioner Family; PCP Family Medicine; Visit Provider Internal Medicine Medical Oncology
DX: Z53.9 Procedure and treatment not carried out, unspecified reason (principal)
CPT/HCPCS: 36415; 80053; 85007; 85025; 96360; 96375; 96413; 99214; J2270; J2405; J7030; J7050; J9201

== ENCOUNTER 2025-01-16 09:10 | Oncology outpatient (recurring) (ONCR) | payer MEDICARE, SELFPAY ==
[2025-01-16 10:32] LABS: Basophils % 0.3 %; Eosinophils # 0.1 10^3/uL (0.0-0.8); Eosinophils % 0.9 %; Hematocrit 37.1 % (37-53); Lymphocytes # 0.3 10^3/uL (0.8-4.8); Lymphocytes % 3.9 %; Mean Corpuscular HGB Conc 30.7 g/dL (30-55); Mean Corpuscular Hemoglobin 29.2 pg (27-33); Mean Corpuscular Volume 94.9 fl (82-101); Mean Platelet Volume 9.3 fL (7.4-10.4); Monocytes # 0.5 10^3/uL (0.2-0.9); Monocytes % 6.2 %; Neutrophils # 7.75 10^3/uL (1.8-7.7); Neutrophils % 88.4 %; Nucleated Red Blood Cells % 0 %; Platelet Count 266 10^3/cmm (157-399); Red Blood Count 3.91 10^6/uL (3.85-5.65); Red Cell Distribution Width 17.5 % (12.1-15.1); White Blood Count 8.77 10^3/uL (3.29-11.43)
[2025-01-16 10:50] LABS: Alanine Aminotransferase 6 U/L (0-41); Albumin Level 3.6 g/dL (3.5-5.2); Alkaline Phosphatase 160 U/L (40-130); Anion Gap 11.2 (5-19); Aspartate Amino Transferase 15 U/L (0-40); Blood Urea Nitrogen 15 mg/dL (8-23); Calcium 8.8 mg/dL (8.5-10.5); Carbon Dioxide 33 mmol/L (22-29); Chloride 99 mmol/L (98-107); Globulin 3.1 g/dL (1.3-4.6); Glomerular Filtration Rate 111.5 mL/min (90-130); Glucose 86 mg/dL (65-115); Osmolality Calculated 288 mOsm/kg (285-295); Potassium 4.2 mmol/L (3.5-5.1); Sodium 139 mmol/L (136-145); Total Protein 6.7 g/dL (6.6-8.7)
== END 2025-01-28 23:59 | disposition home or self-care (01) ==
PROVIDERS: PCP Family Medicine; Visit Provider Internal Medicine Medical Oncology
DX: Z53.9 Procedure and treatment not carried out, unspecified reason (principal); C34.81 Malignant neoplasm of overlapping sites of right bronchus and lung; G89.3 Neoplasm related pain (acute) (chronic); Z92.3 Personal history of irradiation; F17.290 Nicotine dependence, other tobacco product, uncomplicated
CPT/HCPCS: 36415; 80053; 85025; 99214

== ENCOUNTER 2025-01-24 12:43 | Inpatient (IN) | payer MEDICARE, SELFPAY ==
[2025-01-24] VITALS (18 sets, daily range): BP systolic 84–128; BP diastolic 59–78; PULSE 74–93; RESP 13–26; TEMP 36.6–37.1; O2SAT 85–100; BMI 26.9; BMI 18.6
--- NOTE | 2025-01-24 12:48 | XRR_ITS ---
PROCEDURE INFORMATION: Exam: XR Chest Exam date and time: 01/24/2025 1:06 PM Age: 69 years old Clinical indication: Cough and dyspnea and shortness of breath; Prior surgery; Surgery date: 6+ months; Surgery type: Shoulder; HX of lung cancer; Additional info: Dyspnea/cough TECHNIQUE: Imaging protocol: Radiologic exam of the chest. Views: 1 view. COMPARISON: CR (CHEST, ) 12/18/2024 7:47 AM FINDINGS: Lungs: There is re-demonstration of an indistinct right hilar mass along with some adjacent linear opacities likely representing posttreatment changes of patient's known bronchogenic malignancy. There is also some adjacent indistinct peribronchial opacities within the right mid lung zone mildly improved from previous exam the may represent unresolved pneumonia. There is some volume loss right hemithorax unchanged. There is a linear interface projecting over the right upper lung zone probably representing a skin fold but should be confirmed on repeat exam to exclude pneumothorax. Remaining lung fowler are aerated and clear. There is some chronic granulomatous calcifications left hilum unchanged. Pleural spaces: No pleural effusions. Heart/Mediastinum: Unremarkable. No cardiomegaly. Bones/joints: Prior right shoulder replacement. Evidence of vertebroplasty midthoracic spine. No acute bony abnormalities detected. XR/XR chest 1V portable [id number] IMPRESSION: 1. Redemonstration of posttreatment changes of right hilar mass presumed to represent patient's known bronchogenic malignancy. 2. Persistent right perihilar opacities mildly improved from previous exam likely representing unresolved or recurrent pneumonia. 3. Simulated pneumothorax right upper lung zone believe secondary to skin fold for which repeat chest x-ray recommended for confirmation.
--- NOTE | 2025-01-24 12:50 | ECG_ITS ---
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
--- NOTE | 2025-01-24 12:56 | W.ED.SOB ---
HPI - SOB/Dyspnea General: Chief Complaint: Shortness of Breath/Dyspnea Stated Complaint: SOB Time Seen by Provider: 01/24/25 12:48 History of Present Illness: HPI Narrative: 69-year-old male presents emergency room via EMS complaints of shortness of breath and hypotension. Patient has a known squamous cell CA of the lung has recently made a recurrence he tells me they have stopped his chemotherapy recently he did get palliative radiation therapy for a time. He denies any hemoptysis denies any productive cough. He has not had any chemo for the last 3 weeks. No chest pain. 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 Associated symptoms: Deny abdominal pain, chest pain or fever(s) Related Data Previous Rx's ?Medication ?Instructions ?Recorded lorazepam 1 mg tablet 0.5 - 1 mg (0.5 - 1 x 1 mg) PO Q6H 10/03/24 PRN severe nausea #30 tabs Portable oxygen concentrator and #1 ea 10/13/24 supplies albuterol sulfate 90 mcg/actuation 2 puff inhalation Q6H PRN 01/04/25 aerosol inhaler shortness of breath or wheezing #6.7 grams amiodarone 200 mg tablet 200 mg PO DAILY #30 tabs 01/04/25 apixaban 5 mg tablet (Eliquis) 5 mg PO BID #60 tabs 01/04/25 clopidogrel 75 mg tablet 75 mg PO DAILY #30 tabs 01/04/25 escitalopram oxalate 10 mg tablet 10 mg PO DAILY #30 tabs 01/04/25 famotidine 20 mg tablet 20 mg PO BID #60 tabs 01/04/25 furosemide 20 mg tablet 20 mg PO BID #60 tabs 01/04/25 ipratropium 0.5 mg-albuterol 3 mg 3 ml inhalation Q6H PRN shortness 01/04/25 (2.5 mg base)/3 mL nebulization of breath or wheezing #90 mL soln morphine 60 mg tablet,extended 60 mg PO Q12H 30 days #60 tabs 01/04/25 release ondansetron HCl 4 mg tablet 4 mg PO Q6H PRN nausea and 01/04/25 vomiting #30 tabs oxycodone-acetaminophen 10 mg-325 1 tab PO Q8H PRN pain 30 days #60 05/07/25 mg tablet (Percocet) tabs Allergies Allergy/AdvReac Type Severity Reaction Status Date / Time Penicillins Allergy Unknown ALGY-Swell Verified 01/16/25 10:29 Lip/Tongue/Throat Review of Systems Const: Denies: fever(s) or chills Card: Denies: chest pain Resp: Denies: dyspnea GI: Denies: abdominal pain : Denies: dysuria, urinary frequency or urinary urgency Musc: Denies: neck pain or back pain Skin/Breast: Denies: rash PFSH ED PFSH: Medical History (Updated 01/25/25 @ 14:15 by Garrett Warner DO) COPD (chronic obstructive pulmonary disease) CAD (coronary artery disease) Atrial fibrillation Chronic anticoagulation Chronic pulmonary embolism Osteoporosis Pneumonia Opioid-induced constipation Pulmonary embolism Spinal stenosis Port-A-Cath in place but then had removed Compression fracture of T7 vertebra Cavitary lesion of lung Constipation Cancer related pain Non-small cell lung cancer Immunosuppressed due to chemotherapy Drug or medicinal substance causing adverse effect in therapeutic use Antineoplastic chemotherapy induced anemia Chemotherapy-induced vomiting Secondary malignant neoplasm of mediastinum Chemotherapy management, encounter for Malignant neoplasm of overlapping sites of right lung Lung cancer metastatic to bone GI (gastrointestinal bleed) Mass of right lung Bilateral direct inguinal hernia Tobacco abuse PAD (peripheral artery disease) Erectile 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 Hyperlipidemia Surgical History History of back surgery Status post peripheral artery angioplasty with insertion of stent History of angioplasty of peripheral vessel History of right shoulder replacement History of chest tube placement History of laparoscopic cholecystectomy Family History Father Diabetes Brother , AGE 60 CAD (coronary artery disease) Myocardial infarction Mother Diabetes Grandfather Diabetes MATERNAL Grandmother Diabetes MATERNAL Social History Smoking and tobacco/nicotine status: former use of tobacco/nicotine Quit status (tobacco/nicotine): has quit using Year quit tobacco: 2022 Former quit date comment: has had no cigarette tobacco for 10 days/smoked for 50 years Alcohol intake: former Substance/Drug Use: current Substance/Drug use frequency: few times a week Household members: none Marital status: Number of children: 1 service: No 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 kings needs: No Physical Exam Const: COMMON NORMALS: no acute distress GENERAL APPEARANCE: cooperative and comfortable ORIENTATION/CONSCIOUSNESS: Yes awake, Yes oriented to person, Yes oriented to place and Yes oriented to time HENMT: COMMON NORMALS: normocephalic, atraumatic and hearing grossly normal bilaterally HEAD & SCALP: normocephalic and atraumatic Resp: EFFORT & INSPECTION: Yes tachypneic, Yes labored and Yes uses accessory muscles AUSCULTATION: rhonchi and wheezes Cardio: COMMON NORMALS: regular rate, regular rhythm and No murmurs present (Cardio) RATE: regular rate RHYTHM: regular rhythm GI: COMMON NORMALS: Soft to palpation and No hepatosplenomegaly present AUSCULTATION: Yes normoactive bowel sounds PALPATION: Yes Soft to palpation, No Tenderness to palpation present (GI), No Guarding due to palpation present (GI) and Yes No hepatosplenomegaly present Extremity: COMMON NORMALS: normal to inspection, capillary refill normal, no clubbing, cyanosis or edema, no calf tenderness and no pedal edema Neuro: SENSORIUM/ORIENTATION: Yes oriented to person, Yes oriented to place and Yes oriented to time Skin: COMMON NORMALS: no rashes or lesions noted GENERAL SKIN EXAM: no rashes or lesions noted Course Vital Signs: Vital signs: Vital Signs Temperature 97.4 F L 01/25/25 08:15 Pulse Rate 83 01/25/25 13:10 Respiratory Rate 18 01/25/25 13:00 Blood Pressure 103/55 01/25/25 11:45 Pulse Oximetry 93 01/25/25 13:00 Oxygen Delivery Me thod High Flow Nasal C annula 01/25/25 13:00 Oxygen Flow Rate 7 01/25/25 13:00 MDM - SOB/Dyspnea Medical Decision Making Recurrent pneumonia on CTA. If no acute PE. Patient has leukocytosis with some hypoxia and hypotension initially hypotension responded to IV fluids. Started IV antibiotics cultures done. Discussed with hospitalist will admit Medical Records I reviewed the patient's medical records. Lab Data I reviewed the patient's lab results. 01/25/25 03:10 01/25/25 03:10 Labs/Radiology: Radiology Impressions Chest X-Ray 01/24/25 12:48 IMPRESSION: 1. Redemonstration of posttreatment changes of right hilar mass presumed to represent patient's known bronchogenic malignancy. 2. Persistent right perihilar opacities mildly improved from previous exam likely representing unresolved or recurrent pneumonia. 3. Simulated pneumothorax right upper lung zone believe secondary to skin fold for which repeat chest x-ray recommended for confirmation. Chest CTA 01/24/25 14:28 IMPRESSION: 1. Findings consistent with chronic pulmonary embolism limited 2 1st order segmental branch right lower lobe unchanged from earlier examination. No evidence of acute pulmonary embolism. 2. Spiculated lung mass right mid lung increasing size with soft tissue thickening extending to the right hilum that has developed likely representing progressive disease in this patient with known bronchogenic malignancy. 3. Interval development of bilateral lower lobe airway disease with accompanying bilateral subsegmental atelectasis along the paravertebral gutters. 4. Scattered focal ground-glass/interstitial infiltrates within the mid lung zones developed from previous exam presumed infectious in nature. 5. Additional chronic findings as above. Laboratory Results WBC 12.30 10^3/uL (3.29-11.43) H 01/24/25 12: RBC 3.46 10^6/uL (3.85-5.65) L 01/24/25 12:27 Hgb 10.20 g/dL (11.27-16.99) L 01/24/25 12: Hct 33.1 % (37-53) L 01/24/25 12: MCV 95.7 fl (82-101) 01/24/25 12: MCH 29.5 pg (27-33) 01/24/25 12: MCHC 30.8 g/dL (30-55) 01/24/25 12: RDW 17.7 % (12.1-15.1) H 01/24/25 12: Plt Count 245 10^3/cmm (157-399) 01/24/25 12: MPV 9.2 fL (7.4-10.4) 01/24/25 12: Neut % (Auto) 91.4 % 01/24/25 12: Lymph % (Auto) 1.4 % 01/24/25 12: [place] % (Auto) 6.4 % 01/24/25 12: Eos % (Auto) 0.0 % 01/24/25 12: Baso % (Auto) 0.2 % 01/24/25 12: Neut # (Auto) 11.25 10^3/uL (1.8-7.7) H 01/24/25 12:27 Lymph # (Auto) 0.2 10^3/uL (0.8-4.8) L 01/24/25 12:27 [place] # (Auto) 0.8 10^3/uL (0.2-0.9) 01/24/25 12: Eos # (Auto) 0.0 10^3/uL (0.0-0.8) 01/24/25 12:27 Baso # (Auto) 0.0 10^3/uL (0.0-0.1) 01/24/25 12: Nucleated RBC % (auto) 0 % 01/24/25 12: Nucleated RBCs # 0.0 /100WBC 01/24/25 12:27 Specimen Type Arterial 01/24/25 15:56 Sample Site Brachial, left 01/24/25 15:56 ABG pH 7.34 (7.35-7.45) L 01/24/25 15:56 ABG pCO2 59.0 mmHg (35-45) H 01/24/25 15:56 ABG pO2 57.9 mmHg (80.0-100.0) L 01/24/25 15:56 ABG PO2/FiO2 Ratio 103 01/24/25 15:56 ABG HCO3 31.7 mmol/L (22-26) H 01/24/25 15:56 ABG O2 Saturation 88.9 01/24/25 15:56 ABG Base Excess 5.0 mmol/L (-2.0-2.0) H 01/24/25 15:56 Michael Test N/a 01/24/25 15:56 A-a O2 Gradient 35.2 mmHg (5-10) H 01/24/25 15:56 Hematocrit 27.2 % (42-52) L 01/24/25 15:56 Hgb O2 Saturation 87.1 % (95-100) L 01/24/25 15:56 Carboxyhemoglobin 1.7 %THgb (0.4-20.1) 01/24/25 15:56 Methemoglobin 0.3 % (0.4-1.5) L 01/24/25 15:56 Total Hemoglobin 8.9 g/dL (14-18) L 01/24/25 15:56 Sodium 136.0 mmol/L (131-143) 01/24/25 15:56 Potassium 3.1 mmol/L (3.5-5.0) L 01/24/25 15:56 Glucose 113.0 mg/dL (70-115) 01/24/25 15:56 Ionized Calcium 1.1 mmol/L (1.1-1.4) 01/24/25 15:56 O2 Delivery Device Nc 01/24/25 15:56 O2 Liters/Min 6.0 % 01/24/25 15:56 FiO2 56.0 % 01/24/25 15:56 Workplace Trainer And Assessor ID glc 01/24/25 15:56 Sodium 136 mmol/L (136-145) 01/24/25 12:27 Potassium 3.8 mmol/L (3.5-5.1) 01/24/25 12:27 Chloride 95 mmol/L (98-107) L 01/24/25 12:27 Carbon Dioxide 30 mmol/L (22-29) H 01/24/25 12:27 Anion Gap 14.8 (5-19) 01/24/25 12:27 BUN 14 mg/dL (8-23) 01/24/25 12:27 Creatinine 0.7 mg/dL (0.7-1.2) 01/24/25 12:27 GFR Calculation 111.5 mL/min (90-130) 01/24/25 12:27 Glucose 93 mg/dL (65-115) 01/24/25 12:27 Calculated Osmolality 282 mOsm/kg (285-295) L 01/24/25 12:27 Lactic Acid 3.0 mmol/L (0.5-2.2) H 01/24/25 12:27 Lactic Acid (Sepsis) 1.3 mmol/L (0.5-2.2) 01/24/25 15:37 Calcium 8.7 mg/dL (8.5-10.5) 01/24/25 12:27 Total Bilirubin 0.8 mg/dL (0.15-1.2) 01/24/25 12:27 AST 14 U/L (0-40) 01/24/25 12:27 ALT 6 U/L (0-41) 01/24/25 12:27 Alkaline Phosphatase 129 U/L (40-130) 01/24/25 12:27 Troponin T Baseline 39 ng/L (0-15) H 01/24/25 12: Troponin T 120 Minute 33.98 ng/L (0-15) H 01/24/25 15:04 Delta Troponin T -5.02 ABS# (0-10) L 01/24/25 15:04 Total Protein 5.8 g/dL (6.6-8.7) L 01/24/25 12: Albumin 3.5 g/dL (3.5-5.2) 01/24/25 12: Globulin 2.3 g/dL (1.3-4.6) 01/24/25 12: Procalcitonin 0.36 ng/mL (0-0.5) 01/24/25 15:04 Urine Color Yellow (Yellow) 01/24/25 17:43 Urine Appearance Clear (CLEAR) 01/24/25 17:43 Urine pH 6.0 (5-7) 01/24/25 17:43 Ur Specific [place] 1.037 (1.005-1.030) H 01/24/25 17:43 Urine Protein Trace (Negative) A 01/24/25 17:43 Urine Glucose (UA) Negative (Normal) 01/24/25 17:43 Urine Ketones Negative (Negative) 01/24/25 17:43 Urine Blood Negative (Negative) 01/24/25 17:43 Urine Nitrate Negative (Negative) 01/24/25 17:43 Urine Bilirubin Negative (Negative) 01/24/25 17:43 Urine Urobilinogen 1.0 mg/dL (Negative) 01/24/25 17:43 Ur Leukocyte Esterase Negative (Negative) 01/24/25 17:43 Urine RBC 0-2 /hpf (0-2) 01/24/25 17:43 Urine WBC 0-5 /hpf (0-5) 01/24/25 17:43 Ur Squamous Epith Cells 0-5 /hpf (0-5) 01/24/25 17:43 Calcium Oxalate Crystal 5-10 /hpf H 01/24/25 17:43 Amorphous Sediment Not Reportable 01/24/25 17:43 Urine Bacteria None seen /hpf (NONE) 01/24/25 17:43 Hyaline Casts 1.65 /lpf 01/24/25 17:43 All radiology interpretation(s) finalized by discharge Discharge Plan Discharge Patient Disposition: Admitted As Inpatient Admit Provider: Lakisha Wen Clinical Impression: Malignant neoplasm of overlapping sites of right lung, Pneumonia, Chronic pulmonary embolism, Chronic anticoagulation, COPD (chronic obstructive pulmonary disease), Antineoplastic chemotherapy induced anemia Condition: Stable Coding Level of Care Code ED Transfer Station Attendant for Kvng Smith
[2025-01-24 13:01] LABS: Basophils % 0.2 %; Hematocrit 33.1 % (37-53); Lymphocytes # 0.2 10^3/uL (0.8-4.8); Lymphocytes % 1.4 %; Mean Corpuscular HGB Conc 30.8 g/dL (30-55); Mean Corpuscular Hemoglobin 29.5 pg (27-33); Mean Corpuscular Volume 95.7 fl (82-101); Mean Platelet Volume 9.2 fL (7.4-10.4); Monocytes # 0.8 10^3/uL (0.2-0.9); Monocytes % 6.4 %; Neutrophils # 11.25 10^3/uL (1.8-7.7); Neutrophils % 91.4 %; Nucleated Red Blood Cells % 0 %; Platelet Count 245 10^3/cmm (157-399); Red Blood Count 3.46 10^6/uL (3.85-5.65); Red Cell Distribution Width 17.7 % (12.1-15.1)
[2025-01-24] MEDS: ipratropium-albuterol 3 mL Neb INHALATION ×2 (13:09→21:28)
[2025-01-24 13:16] LABS: ABG PCO2 58.1 mmHg (35-45); ABG PH Result 7.37 (7.35-7.45); Alveolar-Arterial Oxygen Gradi 63.5 mmHg (5-10); Arterial Blood Gas Hematocrit 30.8 % (42-52); Base Excess ABG 6.8 mmol/L (-2.0-2.0); Blood Gas Allen Test Pos; Blood Gas Operator Identificat glc; Blood Gas Sample Site Radial, right; Blood Gas Sample Type Arterial; Carboxyhemoglobin 2.8 %THgb (0.4-20.1); HCO3 ABG 33.4 mmol/L (22-26); HGB O2 Sat 96.7 % (95-100); Ionized Calcium Level - ABG 1.2 mmol/L (1.1-1.4); Methemoglobin 0.3 % (0.4-1.5); Oxygen Device NRB; Oxygen Saturation ABG > 99.1; PO2 FiO2 Ratio Arterial Blood 154; Potassium Level - ABG 3.3 mmol/L (3.5-5.0); Total Hemoglobin 10.1 g/dL (14-18)
[2025-01-24 13:17] LABS: Alanine Aminotransferase 6 U/L (0-41); Albumin Level 3.5 g/dL (3.5-5.2); Alkaline Phosphatase 129 U/L (40-130); Anion Gap 14.8 (5-19); Aspartate Amino Transferase 14 U/L (0-40); Blood Urea Nitrogen 14 mg/dL (8-23); Calcium 8.7 mg/dL (8.5-10.5); Carbon Dioxide 30 mmol/L (22-29); Chloride 95 mmol/L (98-107); Creatinine Clr Calc Pharmacy 83.3438; Globulin 2.3 g/dL (1.3-4.6); Glomerular Filtration Rate 111.5 mL/min (90-130); Glucose 93 mg/dL (65-115); Osmolality Calculated 282 mOsm/kg (285-295); Potassium 3.8 mmol/L (3.5-5.1); Sodium 136 mmol/L (136-145); Total Bilirubin 0.8 mg/dL (0.15-1.2); Total Protein 5.8 g/dL (6.6-8.7)
[2025-01-24 13:26] LABS: Troponin(5th) Baseline 39 ng/L (0-15)
[2025-01-24] MEDS: methylPREDNISolone sod succ 125 mg/2 mL INJ IVP (13:34)
--- NOTE | 2025-01-24 13:34 | PC.NURSE ---
PT GIVEN 1 LITER OF LACTATED RINGERS IN ROUTE PER EMS. ORDERS FROM DR. MONTOYA TO INCLUDE THE LITER GIVEN BY EMS IN THE SEPSIS BOLUS. NEW ORDER FOR 1272 ML OF FLUID INSTEAD OF 2272MLS OF FLUID.
[2025-01-24] MEDS: SODIUM CHLORIDE 0.9% 999 ML IV (13:36)
--- NOTE | 2025-01-24 14:28 | CTR_ITS ---
PROCEDURE INFORMATION: Exam: CTA Chest With Contrast Exam date and time: 01/24/2025 3:51 PM Age: 69 years old Clinical indication: Dyspnea; Additional info: Dyspnea/hx lung CA TECHNIQUE: Imaging protocol: Computed tomographic angiography of the chest with contrast. Exam focused on the arteries. 3D rendering (Not supervised by radiologist): MIP and/or 3D reconstructed images were created by the technologist. Radiation optimization: All CT scans at this facility use at least one of these dose optimization techniques: automated exposure control; mA and/or kV adjustment per patient size (includes targeted exams where dose is matched to clinical indication); or iterative reconstruction. Contrast material: OMNIPAQUE 350; Contrast volume: 100 ml; Contrast route: INTRAVENOUS (IV); COMPARISON: CT angio chest w abd pel w con 07/15/2024 10:01 AM RADIATION DOSE METRICS: Total DLP (mGy-cm): 200.37 FINDINGS: Pulmonary arteries: There is re-demonstration of partially occlusive thrombus involving distal aspect 1st order segmental branch right lower lobe extending into subsegmental branches unchanged from previous exam likely secondary to chronic PE. Remainder of the pulmonary vasculature is patent. No evidence of new or acute pulmonary embolism. Aorta: Unremarkable. No aortic aneurysm. No aortic dissection. Lungs: Chronic granulomatous calcifications within the mediastinum, hilum and lung fowler. There is ill marginated spiculated lung mass best demonstrated in the sagittal plane situated along the posterior aspect right mid lung zone containing a central area of cavitation increased in overall size from previous exam with increased soft tissue thickening extending along the bronchovascular bundles to the right hilum that has also progressed from previous examination likely representing site of bronchogenic malignancy that is progressed from previous exam. There is interval development of bilateral lower lobe airway disease with bronchiectasis bronchial wall thickening and scattered mucous plugging along with bilateral subsegmental atelectasis along the paravertebral gutters. There is also some scattered mixed interstitial ground-glass infiltrates within the mid lung zones that have developed presumably infectious in nature. Pleural spaces: Unremarkable. No pneumothorax. No pleural effusion. Heart: Heart is not significantly enlarged. There are moderate calcifications of the coronary arteries. No significant pericardial effusion. Lymph nodes: There are nonenlarged in distinct mediastinal lymph nodes relatively stable from previous exam, nonspecific. Spleen: There are scattered calcified granulomas within the spleen, longstanding, otherwise spleen is unremarkable. Bones/joints: There is evidence of prior right thoracotomy along posterolateral aspect right mid ribcage unchanged. Prior compression fracture treated with vertebroplasty midthoracic spine unchanged. No acute bony abnormalities detected. Soft tissues: Unremarkable. CT/CT angio chest PE protcl [id number] IMPRESSION: 1. Findings consistent with chronic pulmonary embolism limited 2 1st order segmental branch right lower lobe unchanged from earlier examination. No evidence of acute pulmonary embolism. 2. Spiculated lung mass right mid lung increasing size with soft tissue thickening extending to the right hilum that has developed likely representing progressive disease in this patient with known bronchogenic malignancy. 3. Interval development of bilateral lower lobe airway disease with accompanying bilateral subsegmental atelectasis along the paravertebral gutters. 4. Scattered focal ground-glass/interstitial infiltrates within the mid lung zones developed from previous exam presumed infectious in nature. 5. Additional chronic findings as above.
[2025-01-24 15:03] LABS: Reflex Lactate Order REFLEX LACTIC ORDERD
[2025-01-24 15:27] LABS: Troponin 5 2HR 33.98 ng/L (0-15)
[2025-01-24 15:30] LABS: Troponin 5 2HR Delta -5.02 ABS# (0-10)
[2025-01-24] MEDS: cefepime 1,000 mg SDV 1000 MG IVP (15:30)
[2025-01-24] MEDS: iohexol 350 mg/mL 500 mL Btl (per mL) IV (15:54)
[2025-01-24 16:01] LABS: Lactic Acid level (Lactate) 1.3 mmol/L (0.5-2.2)
[2025-01-24 16:07] LABS: ABG PH Result 7.34 (7.35-7.45); Arterial Blood Gas Hematocrit 27.2 % (42-52); Blood Gas Operator Identificat glc; Blood Gas Sample Site Brachial, left; Blood Gas Sample Type Arterial; Carboxyhemoglobin 1.7 %THgb (0.4-20.1); HCO3 ABG 31.7 mmol/L (22-26); HGB O2 Sat 87.1 % (95-100); Ionized Calcium Level - ABG 1.1 mmol/L (1.1-1.4); Methemoglobin 0.3 % (0.4-1.5); Oxygen Device NC; Oxygen Saturation ABG 88.9; PO2 ABG 57.9 mmHg (80.0-100.0); Potassium Level - ABG 3.1 mmol/L (3.5-5.0); Total Hemoglobin 8.9 g/dL (14-18)
[2025-01-24 16:08] LABS: Alveolar-Arterial Oxygen Gradi 35.2 mmHg (5-10); PO2 FiO2 Ratio Arterial Blood 103
--- NOTE | 2025-01-24 16:18 | ECG_ITS ---
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1955 Requested By: Garrett Vergara Order Number: [id number] Reading MD: PABLO MADRIGAL Measurements Intervals [place] Rate: 83 P: -66 VT: 165 QRS: 68 QRSD: 118 T: 67 QT: 422 QTc: 499 Interpretive Statements SINUS RHYTHM MODERATE INTRAVENTRICULAR CONDUCTION DELAY [110+ ms QRS DURATION] NONSPECIFIC ST & T-WAVE ABNORMALITY PROLONGED QT INTERVAL Compared to ECG 01/24/2025 12:50:47 Intraventricular conduction delay now present T-wave abnormality now present Prolonged QT interval now present Electronically Signed On 02-01-2025 22:53:56 CDT by PABLO MADRIGAL [email or web address] [id number]
--- NOTE | 2025-01-24 17:12 | PC.NURSE ---
THIS NURSE ENTERED ROOM AND NOTICED PT WAS SITTING ON THE END OF HIS BED. PT WAS NOT WEARING OXYGEN AND WAS UNHOOKED FROM MOST OF HIS MONITORS. THIS NURSE ASKED PT WHAT HE WAS DOING. PT BECAME ANGRY AND STATED I WANTED TO SIT UP AND PEE. DID YOU WANT ME TO PISS MY PANTS? THE URINAL WAS ALL THE WAY OVER THERE AND I HAD TO GET IT. THIS NURSE INSTRUCTED PT TO SIT BACK IN BED BECAUSE WE DID NOT WANT HIM TO FALL. PT STATES DON'T YELL AT ME. I NEEDED TO PISS. I'M NOT GOING TO FALL. THIS NURSE INFORMED PT THAT SHE WAS NOT YELLING AT HIM. PT CONTINUES TO ESCALATE AND YELL AT THIS NURSE. THIS NURSE PLACES OXYGEN BACK ON PT AND RECONNECTS VITAL SIGN MONITORS. PT STATES THEY TOOK MY NURSE BUTTON AWAY WHEN I WENT FOR THAT SCAN. THIS NURSE VERBALIZED UNDERSTANDING AND GAVE CALL LIGHT BACK TO PT. PT STATES I'LL USE THIS AND TIE IT AROUND MY NECK. THIS NURSE ASKED PT IF HE WAS BEING SERIOUS. PT STATED HE WAS NOT SERIOUS. THIS NURSE STATED THAT COMMENTS LIKE THAT ARE NOT FUNNY TO MAKE AND THIS NURSE HAS TO TAKE ALL COMMENTS LIKE THAT SERIOUSLY. PT DENIED SI AND HI AGAIN. CALL LIGHT WAS WRAPPED AROUND THE BED RAIL. BOTH BED RAILS UP.
--- NOTE | 2025-01-24 17:39 | P.HP_ITS ---
Providers/Chief Complaint 2 Primary Care Provider: Liya Huerta MD Chief Complaint: SOB History of Present Illness Karthik Gordon is a 69 year old male with past medical history of invasive squamous cell lung carcinoma with last chemotherapy 2 weeks ago, recurrent pneumonia, COPD chronic PE fibrillation on Eliquis chronically on 2 L presents to the ER today difficulty in breathing worsening over last 4 to 5 days, cough requiring up to 10 L of oxygen supplementation to maintain saturation over 90% today along with increased expectoration. Patient denies any sick contact, nausea, vomiting, headache. States he is not on anymore chemotherapy because they make him weak tired and sick. Review of Systems 2 General: Reports: 10 or more systems reviewed and unremarkable except in HPI and below Const: Denies: fever(s), chills, body aches, change in appetite, change in weight, malaise, night sweats, diaphoresis, change in sleep pattern, daytime sleepiness or snoring Eyes: Denies: change in vision, blurry vision, photophobia, eye discomfort or eye discharge ENMT: Denies: throat pain, enlarged tonsils, hoarseness, mouth pain, oral sores, dry mouth, tinnitus, nasal congestion or post nasal drip Card: Denies: chest pain, palpitations, irregular heart rhythm, edema, swelling of feet/ankles, lightheadedness, syncope, pre-syncope, dyspnea on exertion, orthopnea, leg pain with exertion or acrocyanosis Resp: Denies: dyspnea, productive cough, non-productive cough, wheezing, stridor, pain on inspiration, change in phlegm color, hemoptysis or chest congestion GI: Denies: abdominal pain, nausea, vomiting, hematemesis, coffee ground emesis, dysphagia, heartburn, diarrhea, constipation, bloating, GI cramping, change in bowel habits, pain on defecation, hematochezia or melena : Denies: flank pain, difficulty urinating, dysuria, urinary frequency, urinary urgency, urinary hesitancy, urinary dribbling, difficulty starting urination, change in urine stream, nocturia or hematuria Musc: Denies: neck pain, back pain, extremity pain, joint pain, joint swelling, joint redness, joint stiffness or limited range of motion Neuro: Denies: headache(s), numbness in extremities, weakness in extremities, sensory changes, lack of coordination, difficulty walking, frequent falls, dizziness, vertigo, confusion, Slurred speech present, difficulty communicating thoughts or seizure-like activity Psych: Denies: anxiety, depression, mood swings, panic attacks, hopelessness or irritability Endo: Denies: polyuria, polydipsia, tired all the time, cold intolerance, excessive sweating, flushing or heat intolerance Regis/Lymph: Denies: easy bruising or easy bleeding All/Imm: Denies: tongue swelling, facial swelling or acute wheezing Medications/Allergies Home Medications ?Medication ?Instructions ?Recorded ?Confirmed ?Last Taken ?Type lorazepam 1 mg tablet 0.5 - 1 mg (0.5 - 1 x 1 mg) PO Q6H 10/03/24 01/16/25 12/15/24 10:00 Rx PRN severe nausea #30 tabs Portable oxygen concentrator and #1 ea 10/13/2412/15/24 10:00 Rx supplies albuterol sulfate 90 mcg/actuation 2 puff inhalation Q 6H PRN 01/04/25 01/16/25 Unknown Rx aerosol inhaler shortness of breath or wheez ing #6.7 grams amiodarone 200 mg tablet 200 mg PO DAILY #30 tabs 03/2401/16/25 Unknown Rx apixaban 5 mg tablet (Eliquis) 5 mg PO BID #60 tabs 01/16/25 Unknown Rx clopidogrel 75 mg tablet 75 mg PO DAILY #30 tabs 03/2401/16/25 Unknown Rx escitalopram oxalate 10 mg tablet 10 mg PO DAILY #30 t abs 01/04/25 01/16/25 Unknown Rx famotidine 20 mg tablet 20 mg PO BID #60 tabs 01/16/25 Unknown Rx furosemide 20 mg tablet 20 mg PO BID #60 tabs 01/16/25 Unknown Rx ipratropium 0.5 mg-albuterol 3 mg 3 ml inhalation Q6H PRN shortness 01/04/25 01/16/25 Unknown Rx (2.5 mg base)/3 mL nebulization of breath or wheezing #90 mL soln morphine 60 mg tablet,extended 60 mg PO Q12H 30 days # 60 tabs 01/04/25 01/16/25 Unknown Rx release ondansetron HCl 4 mg tablet 4 mg PO Q6H PRN nausea and 01/04/25 01/16/25 Unknown Rx vomiting #30 tabs oxycodone-acetaminophen 10 mg-325 1 tab PO Q8H PRN minna n 30 days #60 01/04/25 01/16/25 Unknown Rx mg tablet (Percocet) tabs Allergies Allergy/AdvReac Type Severity Reaction Status Date / Time Penicillins Allergy Unknown ALGY-Swell Verified 01/16/25 10:29 Lip/Tongue/Throat PFSH Acute 2 PFSH: Medical History (Updated 01/24/25 @ 17:45 by Idris Niño MD) COPD (chronic obstructive pulmonary disease) CAD (coronary artery disease) Atrial fibrillation Chronic anticoagulation Chronic pulmonary embolism Osteoporosis Pneumonia Opioid-induced constipation Pulmonary embolism Spinal stenosis Port-A-Cath in place but then had removed Compression fracture of T7 vertebra Cavitary lesion of lung Constipation Cancer related pain Non-small cell lung cancer Immunosuppressed due to chemotherapy Drug or medicinal substance causing adverse effect in therapeutic use Antineoplastic chemotherapy induced anemia Chemotherapy-induced vomiting Secondary malignant neoplasm of mediastinum Chemotherapy management, encounter for Malignant neoplasm of overlapping sites of right lung Lung cancer metastatic to bone GI (gastrointestinal bleed) Mass of right lung Bilateral direct inguinal hernia Tobacco abuse PAD (peripheral artery disease) Erectile 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 Hyperlipidemia Surgical History History of back surgery Status post peripheral artery angioplasty with insertion of stent History of angioplasty of peripheral vessel History of right shoulder replacement History of chest tube placement History of laparoscopic cholecystectomy Family History Father Diabetes Brother , AGE 60 CAD (coronary artery disease) Myocardial infarction Mother Diabetes Grandfather Diabetes MATERNAL Grandmother Diabetes MATERNAL Social History Smoking and tobacco/nicotine status: former use of tobacco/nicotine Quit status (tobacco/nicotine): has quit using Year quit tobacco: 2022 Former quit date comment: has had no cigarette tobacco for 10 days/smoked for 50 years Alcohol intake: former Substance/Drug Use: current Substance/Drug use frequency: few times a week Household members: none Marital status: Number of children: 1 service: No 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 kings needs: No Vitals/I&O/Wt Last Vital Signs Temp 98.7 F 01/24/25 12:43 Pulse 85 01/24/25 15:30 Resp 22 H 01/24/25 13:11 BP 126/67 01/24/25 15:30 Pulse Ox 93 01/24/25 15:30 O2 Del Method Nasal Cannula 01/24/25 15:30 O2 Flow Rate 6 01/24/25 15:30 01/24/25 01/24/25 01/24/25 06:59 14:59 22:59 Intake Total 1000 / 1000 1272 / 2272 Balance 1000 / 1000 1272 / 2272 Weight last 48 hrs Weight 75.75 kg Physical Exam 2 Narrative: General: No acute distress, AO x3, cachectic, sick appearing HEENT: PERRLA, pupils bilaterally equal and reactive Chest: Bilateral bronchial breath in the lower lung field with occasional rhonchi, coarse with blood present diffusely all over lung fowler, left more than right CVS: S1-S2 irregularly irregular, no murmurs, no tachycardia, no gallops, no rubs Abdomen: Soft, nontender, no organomegaly, bowel sounds present Neuro: No focal deficits, no facial deformity, AO x3, power 5/5 in all limbs Data 01/24/25 12:27 01/24/25 12:27 Micro: Microbiology 01/24/25 15:00 Blood Culture - Preliminary Blood SPECIMEN COLLECTED 01/24/25 14:23 Blood Culture - Preliminary Blood SPECIMEN COLLECTED A&P Assessment and plan (1) Pneumonia: Seen on CTA. Check sputum culture, urinalysis, bacterial antigen, blood culture, trend procalcitonin, check MRSA swab. For now start on empiric IV vancomycin and meropenem along with azithromycin for atypical coverage. De-escalate as per culture sensitivity. (2) Acute on chronic hypoxic respiratory failure: Insetting of pneumonia with high concerns for postobstructive pneumonia, recurrent lung cancer, chronic PE and COPD exacerbation. Oxygen supplementation keeping saturation over 88%. (3) Chronic pulmonary embolism: Seen on CTA. Continue with home dose of Eliquis 5 mg twice daily. (4) Malignant neoplasm of overlapping sites of right lung: Last chemotherapy 2 weeks ago. Patient had just decided not to take any more chemotherapy going forward because they make him sick and tired. (5) CAD (coronary artery disease): No active chest pain. Continue with home dose of Plavix. Appreciate recent A1c, lipid panel. (6) Atrial fibrillation: Currently rate controlled. Continue with home dose of amiodarone and Eliquis. (7) Chronic anticoagulation: (8) COPD (chronic obstructive pulmonary disease): Pulmicort twice daily, DuoNeb every 6 hour. Solu-Medrol 40 mg every 6 hourly. Respiratory viral panel. Plan CODE STATUS: Discussed in detail with the patient. He does not want any heroic measures to keep him alive. He states he is tired and does not want to go for any more chemotherapy as well. He is considering hospice. For now would want to be DNR/DNI. Mechanical soft diet Protonix OPD prophylaxis Requested with the patient for DVT prophylaxis. PDMP PDMP Reviewed: Not Reviewed Attestations 2 Medical Necessity Statement*: Admission for more than 2 midnights for management of acute on chronic hypoxic respiratory failure in setting of bilateral pneumonia, postobstructive pneumonia in setting of lung cancer, COPD exacerbation Diagnoses Pneumonia J18.9 Acute on chronic hypoxic respiratory failure J96.21 Chronic pulmonary embolism I27.82 Malignant neoplasm of overlapping sites of right lung C34.81 Coronary artery disease involving [place] coronary artery of [place] heart without angina pectoris I25.10 Coronary Disease-Associated Artery/Lesion type: [place] artery [place] vs. transplanted heart: [place] heart Associated angina: without angina Atrial fibrillation I48.91 Chronic anticoagulation Z79.01 COPD (chronic obstructive pulmonary disease) J44.9
[2025-01-24 18:08] LABS: Procalcitonin 0.36 ng/mL (0-0.5)
[2025-01-24 18:40] LABS: Bilirubin Urine Negative (Negative); Blood Urine Negative (Negative); Glucose Urine UA Negative (Normal); Ketones Urine Negative (Negative); Leukocyte Esterase Urine Negative (Negative); Nitrate Urine Negative (Negative); Protein Urine Trace (Negative); Urine Appearance Clear (CLEAR); Urine Color Yellow (Yellow)
[2025-01-24 18:45] LABS: Troponin 5 6HR 28.53 ng/L (0-15); Troponin 5 6HR Delta -10.47 ng/L (0-12)
[2025-01-24 18:45] LABS: Add Urine Microscopic? YES; Bacteria Urine None Seen /hpf; Hyaline Casts Urine 1.65 /lpf; RBC Urine 0-2 /hpf (0-2); Squamous Epithelial Cell Urine 0-5 /hpf (0-5); WBC Urine 0-5 /hpf (0-5)
--- NOTE | 2025-01-24 18:49 | ECG_ITS ---
[facility]: 2025-01-24 Pat Name: Karthik Gordon Department: Room: ICU07 Gender: Male [employer] Helper: : [id number] Requested By: Garrett Vergara Order Number: [id number] Reading MD: PABLO MADRIGAL Measurements Intervals [place] Rate: 82 P: 71 NM: 213 QRS: 52 QRSD: 106 T: 73 QT: 399 QTc: 466 Interpretive Statements SINUS RHYTHM WITH FIRST DEGREE AV BLOCK Compared to ECG 01/24/2025 16:18:27 First degree AV block now present Intraventricular conduction delay no longer present T-wave abnormality no longer present Prolonged QT interval no longer present Electronically Signed On 02-01-2025 22:54:54 CDT by PABLO MADRIGAL [email or web address]
[2025-01-24 19:03] LABS: Add Urine Culture? No; Specific Gravity, Urine 1.037 (1.005-1.030); UA Slide Review UA Slide Review Perf
--- NOTE | 2025-01-24 20:39 | PC.NURSE ---
2021- pt checked on and had pulled off NRB and asking to be put on nc d/t wanting to finish pudding . pt placed on nc and @ 90%. pt not wanting to cooperate and removed NC .
[2025-01-24] MEDS: azithromycin 250 mg Tablet 500 MG PO (21:26)
[2025-01-24] MEDS: apixaban 5 mg Tablet PO (21:27)
[2025-01-24] MEDS: methylPREDNISolone sod succ 40 mg/mL INJ IVP (21:27)
[2025-01-24] MEDS: docusate sodium 100 mg Capsule PO (21:27)
[2025-01-24] MEDS: morphine ER (12 HR) 30 mg tablet 60 MG PO (21:27)
[2025-01-24] MEDS: meropenem 1,000 mg SDV 1000 MG IVP (21:27)
[2025-01-24] MEDS: pantoprazole 40 mg SDV IVP (21:27)
[2025-01-24] MEDS: budesonide 0.5 mg/2 mL Neb INHALATION (21:28)
[2025-01-24] MEDS: vancomycin 1,500 MG/300 ML PIGGYBACK 200 MG IV (21:33)
[2025-01-24] MEDS: D5-NS 0.45% + KCL 20 mEq 20 MEQ/1,000 ML BAG 75 MEQ IV (21:34)
--- NOTE | 2025-01-24 21:57 | PC.NURSE ---
2049 pt transported to icu via stretcher with no difficulites. pt placed back on NRB upon transport @ 10 L with immediate improvement to 95%
[2025-01-24 23:33] LABS: Iron 14 ug/dL (59-158); Percent Saturation 7.1 % (20-50); Total Iron Binding Capacity 195 mcg/dl; Unsaturated Iron Binding 181 ug/dL (112-347); Vitamin B12 390 pg/mL (232-1245)
[2025-01-25] VITALS (195 sets, daily range): BP systolic 84–126; BP diastolic 41–83; PULSE 72–93; RESP 8–33; TEMP 36.3–36.6; O2SAT 71–98
[2025-01-25 00:11] LABS: Adenovirus Not Detected (NOT DETECT); Chlamydia Pneumoniae Not Detected (NOT DETECT); Coronavirus 229E,HKU1,NL63,OC4 Not Detected (NOT DETECT); Human Metapneumovirus Not Detected (NOT DETECT); Human Rhinovirus/Enterovirus Not Detected (NOT DETECT); Influenza A Not Detected (NOT DETECT); Influenza A H1 Not Detected (NOT DETECT); Influenza A H1-2009 Not Detected (NOT DETECT); Influenza A H3 Not Detected (NOT DETECT); Influenza B Not Detected (NOT DETECT); Mycoplasma Pneumoniae Not Detected (NOT DETECT); Parainfluenza Virus Type 1 Not Detected (NOT DETECT); Parainfluenza Virus Type 2 Not Detected (NOT DETECT); Parainfluenza Virus Type 3 Not Detected (NOT DETECT); Parainfluenza Virus Type 4 Not Detected (NOT DETECT); Respiratory Syncytial Virus A Not Detected (NOT DETECT); Respiratory Syncytial Virus B Not Detected (NOT DETECT); SARS-COV-2 Not Detected (NOT DETECT)
[2025-01-25 00:26] LABS: MRSA PCR OZH (swab) NOT DETECTED (Negative)
[2025-01-25] MEDS: ipratropium-albuterol 3 mL Neb INHALATION ×4 (02:37→21:11)
--- NOTE | 2025-01-25 03:02 | PC.NURSE ---
Patient has not peed since admission. RN bladdered scanned patient. scanner shown volume of 600 ccs. Patient unable to pee at this time. MD notified and orlando was ordered. Patient refusing orlando catheter insertion at this time.
[2025-01-25] MEDS: methylPREDNISolone sod succ 40 mg/mL INJ IVP ×4 (03:09→21:43)
[2025-01-25] MEDS: tamsulosin 0.4 mg Capsule PO (03:09)
[2025-01-25 03:29] LABS: Basophils % 0.1 %; Hematocrit 30.6 % (37-53); Lymphocytes # 0.1 10^3/uL (0.8-4.8); Mean Corpuscular HGB Conc 30.7 g/dL (30-55); Mean Corpuscular Hemoglobin 29.8 pg (27-33); Mean Corpuscular Volume 97.1 fl (82-101); Mean Platelet Volume 9.2 fL (7.4-10.4); Monocytes # 0.2 10^3/uL (0.2-0.9); Monocytes % 2.3 %; Neutrophils # 9.49 10^3/uL (1.8-7.7); Neutrophils % 96.3 %; Nucleated Red Blood Cells % 0 %; Platelet Count 192 10^3/cmm (157-399); Red Blood Count 3.15 10^6/uL (3.85-5.65); Red Cell Distribution Width 17.3 % (12.1-15.1); White Blood Count 9.86 10^3/uL (3.29-11.43)
[2025-01-25 03:55] LABS: Alanine Aminotransferase 7 U/L (0-41); Albumin Level 2.9 g/dL (3.5-5.2); Alkaline Phosphatase 108 U/L (40-130); Aspartate Amino Transferase 13 U/L (0-40); Blood Urea Nitrogen 12 mg/dL (8-23); Calcium 8.2 mg/dL (8.5-10.5); Carbon Dioxide 30 mmol/L (22-29); Chloride 99 mmol/L (98-107); Creatinine Clr Calc Pharmacy 73.5243; Globulin 2.5 g/dL (1.3-4.6); Glomerular Filtration Rate 133.2 mL/min (90-130); Glucose 131 mg/dL (65-115); Magnesium 1.6 mg/dL (1.7-2.3); Osmolality Calculated 286 mOsm/kg (285-295); Phosphorus 3.9 mg/dL (2.5-4.5); Sodium 137 mmol/L (136-145); Total Bilirubin 0.8 mg/dL (0.15-1.2); Total Protein 5.4 g/dL (6.6-8.7)
[2025-01-25 04:00] LABS: Procalcitonin 0.46 ng/mL (0-0.5)
[2025-01-25 04:15] LABS: Folate Level 9.6 ng/mL (4.5-32.2)
[2025-01-25] MEDS: meropenem 1,000 mg SDV 1000 MG IVP ×3 (05:20→21:44)
[2025-01-25] MEDS: magnesium sulfate premix 2 GM/50 ML PIGGYBACK IV (07:00)
[2025-01-25] MEDS: docusate sodium 100 mg Capsule PO ×2 (08:18→17:23)
[2025-01-25] MEDS: clopidogrel 75 mg Tablet PO (08:18)
[2025-01-25] MEDS: apixaban 5 mg Tablet PO ×2 (08:18→17:23)
[2025-01-25] MEDS: amiodarone 200 mg Tablet PO (08:18)
[2025-01-25] MEDS: escitalopram 10 mg Tablet PO (08:18)
[2025-01-25] MEDS: budesonide 0.5 mg/2 mL Neb INHALATION ×2 (08:51→21:11)
[2025-01-25] MEDS: morphine ER (12 HR) 30 mg tablet 60 MG PO ×2 (09:00→22:06)
[2025-01-25] MEDS: vancomycin 1,250 MG/250 ML PIGGYBACK 166.67 MG IV (09:00)
--- NOTE | 2025-01-25 10:27 | PC.NURSE ---
Fluids held at this time, per Dr. Niño
--- NOTE | 2025-01-25 11:21 | P.PN_ITS ---
Subjective 2 Subjective: No acute events overnight. Today morning patient seen on 10 L high flow nasal cannula which was turned down to 8 L. Patient states he is feeling better than yesterday. Denies any nausea, vomiting, headache. Vitals/I&O/Wt Last Vital Signs Temp 97.4 F L 01/25/25 08:15 Pulse 78 01/25/25 08:51 Resp 18 01/25/25 08:51 BP 108/59 01/25/25 08:15 Pulse Ox 94 01/25/25 08:51 O2 Del Method High Flow Nasal Cannula 01/25/25 08:51 O2 Flow Rate 8 01/25/25 08:51 01/24/25 01/25/25 01/25/25 22:59 06:59 14:59 Intake Total 1272 / 2272 300 / 2572 1540 / 1540 Output Total 0 / 0 600 / 600 Balance 1272 / 2272 -300 / 1972 1540 / 1540 Weight last 48 hrs Weight 60.5 kg Weight 60.5 kg Weight 60.5 kg Weight 75.75 kg Physical Exam 2 Narrative: General: No acute distress, AO x3, cachectic, sick appearing HEENT: PERRLA, pupils bilaterally equal and reactive Chest: Bilateral bronchial breath in the lower lung field with occasional rhonchi, coarse with blood present diffusely all over lung fowler, left more than right CVS: S1-S2 irregularly irregular, no murmurs, no tachycardia, no gallops, no rubs Abdomen: Soft, nontender, no organomegaly, bowel sounds present Neuro: No focal deficits, no facial deformity, AO x3, power 5/5 in all limbs Data 01/25/25 03:10 01/25/25 03:10 Micro: Microbiology 01/24/25 15:00 Blood Culture - Preliminary Blood SPECIMEN COLLECTED 01/24/25 14:23 Blood Culture - Preliminary Blood SPECIMEN COLLECTED A&P Assessment and plan (1) Pneumonia: Seen on CTA. Follow-up sputum culture, blood culture. Appreciate procalcitonin trend. MRSA swab negative. Concerns for postobstructive pneumonia. Continue with empiric IV vancomycin and meropenem along with azithromycin for atypical coverage. De-escalate as per culture sensitivity. (2) Acute on chronic hypoxic respiratory failure: Insetting of pneumonia with high concerns for postobstructive pneumonia, recurrent lung cancer, chronic PE and COPD exacerbation. Oxygen supplementation keeping saturation over 88%. Currently on 8 L of oxygen supplementation. Aggressive pulmonary toilet with I-S and Acapella. (3) Chronic pulmonary embolism: Seen on CTA. Continue with home dose of Eliquis 5 mg twice daily. (4) Malignant neoplasm of overlapping sites of right lung: Last chemotherapy 2 weeks ago. As per oncology note from 01/16 patient has exhausted his treatment options and was advised hospice. He has received palliative radiation therapy as well. Continue with chronic pain medications including morphine 60 mg p.o. every 12 hourly. Can start on oxycodone 5 mg every 4 hour as needed for pain. (5) CAD (coronary artery disease): No active chest pain. Continue with home dose of Plavix. Appreciate recent A1c, lipid panel. (6) Atrial fibrillation: Currently rate controlled. Continue with home dose of amiodarone and Eliquis. (7) Chronic anticoagulation: (8) COPD (chronic obstructive pulmonary disease): Pulmicort twice daily, DuoNeb every 6 hour. Continue with Solu-Medrol 40 mg every 6 hourly. Negative Respiratory viral panel. (9) Goals of care, counseling/discussion: Discussed in detail with the patient. Discussed unfortunately he is having recurrent postobstructive pneumonia given his lung cancer. Discussed as per oncology patient seem to have exhausted his options for treatment and they advised him to go hospice. He remembers having the conversation with oncology team and is agreeable to hospice eventually on discharge. He is agreeable for continuing IV antibiotic course for now and then transition to hospice on discharge. Case management alerted. Plan Urinary retention: Overnight found to have increased urine on bladder scan. Received Wise catheter. Continue with Flomax 0.4 mg daily. Replace magnesium 1 g. IV Lasix 20 mg one-time. CODE STATUS: Patient does not want any heroic measures to keep him alive. Wants to be DNR/DNI. Plan to discharge on hospice once finished treatment for pneumonia. Mechanical soft diet Protonix OPD prophylaxis Eliquis will be sufficient for DVT prophylaxis[facility] PD[facility] PDMP Reviewed: Not Reviewed Attestations 2 Medical Necessity Statement*: Requires further hospitalization for management of acute on chronic hypoxic respiratory failure in setting of bilateral pneumonia in a patient with history of lung cancer Diagnoses Pneumonia J18.9 Acute on chronic hypoxic respiratory failure J96.21 Chronic pulmonary embolism I27.82 Malignant neoplasm of overlapping sites of right lung C34.81 Coronary artery disease involving [place] coronary artery of [place] heart without angina pectoris I25.10 Coronary Disease-Associated Artery/Lesion type: [place] artery [place] vs. transplanted heart: [place] heart Associated angina: without angina Atrial fibrillation I48.91 Chronic anticoagulation Z79.01 COPD (chronic obstructive pulmonary disease) J44.9 Goals of care, counseling/discussion Z71.89
[2025-01-25] MEDS: morphine 4 mg/mL SDV 1 mL 2 MG IVP (15:28)
--- NOTE | 2025-01-25 15:41 | PHA.VACGOAL ---
Vancomycin Goal - Goal Vancomycin Goal:: 15-20 mg/L Vancomycin Indication:: Pneumonia - Therapy Day of therpy:: Day []of [] . Actual body weight (kg): 133 lb 6.075 oz - Data Labs: WBC 9.86 10^3/uL (3.29-11.43) 01/25/25 03:10 RBC 3.15 10^6/uL (3.85-5.65) L 01/25/25 03:10 Hgb 9.40 g/dL (11.27-16.99) L 01/25/25 03:10 Hct 30.6 % (37-53) L 01/25/25 03:10 MCV 97.1 fl (82-101) 01/25/25 03:10 MCH 29.8 pg (27-33) 01/25/25 03:10 MCHC 30.7 g/dL (30-55) 01/25/25 03:10 RDW 17.3 % (12.1-15.1) H 01/25/25 03:10 Sodium 137 mmol/L (136-145) 01/25/25 03:10 Potassium 4.0 mmol/L (3.5-5.1) 01/25/25 03:10 Chloride 99 mmol/L (98-107) 01/25/25 03:10 Carbon Dioxide 30 mmol/L (22-29) H 01/25/25 03:10 Anion Gap 12.0 (5-19) 01/25/25 03:10 BUN 12 mg/dL (8-23) 01/25/25 03:10 Creatinine 0.6 mg/dL (0.7-1.2) L 01/25/25 03:10 GFR Calculation 133.2 mL/min (90-130) H 01/25/25 03:10 Treatment plan:: new consult Regimen:: 1250 MG Q12H
--- NOTE | 2025-01-25 19:45 | PC.NURSE ---
Transfer Transferred to [place] [id number]. All belongings taken with patient. Patient voicing no complaints.
--- NOTE | 2025-01-25 21:08 | PC.RESP ---
After presenting the patient with his nebulizer patient stated he does not like that style nebulizer and said he wanted to refuse. he swore and was becoming verbally aggressive. Explained to the patient I could change the nebulizer device patient agreed when he stopped to listen to what I offered, patient agreed to take his svn with the other style nebulizer [ End ]
[2025-01-25] MEDS: azithromycin 250 mg Tablet 500 MG PO (21:43)
[2025-01-25] MEDS: FUROsemide 10 mg/mL SDV 2mL 20 MG IVP (21:43)
[2025-01-25] MEDS: vancomycin 1,250 MG/250 ML PIGGYBACK 167 MG IV (21:44)
[2025-01-25] MEDS: pantoprazole 40 mg SDV IVP (21:44)
[2025-01-26] VITALS (13 sets, daily range): BP systolic 130–149; BP diastolic 69–77; PULSE 76–98; RESP 16–20; TEMP 36.6–36.8; O2SAT 90–95
[2025-01-26] MEDS: ipratropium-albuterol 3 mL Neb INHALATION ×4 (03:09→19:31)
[2025-01-26] MEDS: methylPREDNISolone sod succ 40 mg/mL INJ IVP ×3 (03:13→17:36)
--- NOTE | 2025-01-26 03:13 | PC.RESP ---
patient requesting a second urinal. this Respiratory thearpist emptied the one at bed side and informend the nurse of output. patient states if he does not receive 2nd urinal he will piss on the floor next time, because no one is checking on him nurse entered the room during this. Patient then threw the nebulizer on the table when it was finished, saying this is done and then asked if I had gotten him the second urinal, I reminded the patient I had not left the room. the nurse left and retrieved 2nd uirnal.
[2025-01-26 05:07] LABS: Hematocrit 28.7 % (37-53); Lymphocytes # 0.1 10^3/uL (0.8-4.8); Lymphocytes % 0.8 %; Mean Corpuscular HGB Conc 31.4 g/dL (30-55); Mean Corpuscular Hemoglobin 29.2 pg (27-33); Mean Corpuscular Volume 93.2 fl (82-101); Mean Platelet Volume 9.4 fL (7.4-10.4); Monocytes # 0.2 10^3/uL (0.2-0.9); Monocytes % 2.5 %; Neutrophils % 96.1 %; Nucleated Red Blood Cells % 0 %; Platelet Count 193 10^3/cmm (157-399); Red Blood Count 3.08 10^6/uL (3.85-5.65); Red Cell Distribution Width 17.4 % (12.1-15.1); White Blood Count 9.05 10^3/uL (3.29-11.43)
[2025-01-26 05:30] LABS: Alanine Aminotransferase 6 U/L (0-41); Albumin Level 2.8 g/dL (3.5-5.2); Alkaline Phosphatase 91 U/L (40-130); Anion Gap 13.2 (5-19); Aspartate Amino Transferase 13 U/L (0-40); Blood Urea Nitrogen 15 mg/dL (8-23); Calcium 8.1 mg/dL (8.5-10.5); Carbon Dioxide 30 mmol/L (22-29); Chloride 98 mmol/L (98-107); Creatinine Clr Calc Pharmacy 73.5243; Globulin 2.4 g/dL (1.3-4.6); Glomerular Filtration Rate 133.2 mL/min (90-130); Glucose 125 mg/dL (65-115); Magnesium 1.9 mg/dL (1.7-2.3); Osmolality Calculated 288 mOsm/kg (285-295); Phosphorus 2.1 mg/dL (2.5-4.5); Potassium 3.2 mmol/L (3.5-5.1); Sodium 138 mmol/L (136-145); Total Bilirubin 0.7 mg/dL (0.15-1.2); Total Protein 5.2 g/dL (6.6-8.7)
[2025-01-26] MEDS: meropenem 1,000 mg SDV 1000 MG IVP ×3 (05:55→21:24)
[2025-01-26] MEDS: amiodarone 200 mg Tablet PO (08:10)
[2025-01-26] MEDS: clopidogrel 75 mg Tablet PO (08:10)
[2025-01-26] MEDS: apixaban 5 mg Tablet PO ×2 (08:10→17:34)
[2025-01-26] MEDS: escitalopram 10 mg Tablet PO (08:10)
[2025-01-26] MEDS: budesonide 0.5 mg/2 mL Neb INHALATION ×2 (08:48→19:30)
[2025-01-26] MEDS: vancomycin 1,250 MG/250 ML PIGGYBACK 166.66 MG IV (10:34)
[2025-01-26] MEDS: morphine ER (12 HR) 30 mg tablet 60 MG PO ×2 (10:35→21:24)
--- NOTE | 2025-01-26 11:57 | PM.PN ---
Subjective Subjective: No acute events overnight. Seen laying comfortably in bed. Complaining of some pain on taking deep inspiration in his chest overall. Otherwise seems to be comfortable on 5 L. Denies any nausea, vomiting. Vitals/I&O/Wt Last Vital Signs Temp 97.9 F 01/26/25 11:32 Pulse 87 01/26/25 11:32 Resp 17 01/26/25 11:32 BP 136/75 01/26/25 11:32 Pulse Ox 92 01/26/25 11:32 O2 Del Method Nasal Cannula 01/26/25 11:32 O2 Flow Rate 6 01/26/25 08:45 01/25/25 01/26/25 01/26/25 22:59 06:59 14:59 Intake Total 2019 490 / 2510 120 / 120 Output Total 1850 / 1850 300 / 300 Balance 2019 -1360 / 660 -180 / -180 Weight last 48 hrs Weight 60.328 kg Weight 60.5 kg Weight 60.5 kg Weight 60.5 kg Weight 75.75 kg Physical Exam Narrative: General: No acute distress, AO x3, cachectic, sick appearing HEENT: PERRLA, pupils bilaterally equal and reactive Chest: Bilateral bronchial breath in the lower lung field with occasional rhonchi, coarse with blood present diffusely all over lung fowler, left more than right CVS: S1-S2 irregularly irregular, no murmurs, no tachycardia, no gallops, no rubs Abdomen: Soft, nontender, no organomegaly, bowel sounds present Neuro: No focal deficits, no facial deformity, AO x3, power 5/5 in all limbs Data 01/26/25 04:50 01/26/25 04:50 Micro: Microbiology 01/24/25 15:00 Blood Culture - Preliminary Blood NEGATIVE TO DATE 01/24/25 14:23 Blood Culture - Preliminary Blood NEGATIVE TO DATE 01/24/25 22:00 Gram Stain - Final Sputum - Expectorated Sputum A&P Assessment and plan (1) Pneumonia: Seen on CTA. Follow-up sputum culture, blood culture. Appreciate procalcitonin trend. MRSA swab negative. Concerns for postobstructive pneumonia. Continue with empiric IV vancomycin and meropenem along with azithromycin for atypical coverage. De-escalate as per culture sensitivity. (2) Acute on chronic hypoxic respiratory failure: Insetting of pneumonia with high concerns for postobstructive pneumonia, recurrent lung cancer, chronic PE and COPD exacerbation. Oxygen supplementation keeping saturation over 88%. Currently on 8 L of oxygen supplementation. Aggressive pulmonary toilet with I-S and Acapella. (3) Chronic pulmonary embolism: Seen on CTA. Continue with home dose of Eliquis 5 mg twice daily. (4) Malignant neoplasm of overlapping sites of right lung: Last chemotherapy 2 weeks ago. As per oncology note from 01/16 patient has exhausted his treatment options and was advised hospice. He has received palliative radiation therapy as well. Continue with chronic pain medications including morphine 60 mg p.o. every 12 hourly. Can start on oxycodone 5 mg every 4 hour as needed for pain. (5) CAD (coronary artery disease): No active chest pain. Continue with home dose of Plavix. Appreciate recent A1c, lipid panel. (6) Atrial fibrillation: Currently rate controlled. Continue with home dose of amiodarone and Eliquis. (7) Chronic anticoagulation: (8) COPD (chronic obstructive pulmonary disease): Pulmicort twice daily, DuoNeb every 6 hour. Continue with Solu-Medrol 40 mg every 6 hourly. Negative Respiratory viral panel. (9) Goals of care, counseling/discussion: Discussed in detail with the patient. Discussed unfortunately he is having recurrent postobstructive pneumonia given his lung cancer. Discussed as per oncology patient seem to have exhausted his options for treatment and they advised him to go hospice. He remembers having the conversation with oncology team and is agreeable to hospice eventually on discharge. He is agreeable for continuing IV antibiotic course for now and then transition to hospice on discharge. Case management alerted. Plan Urinary retention: Overnight found to have increased urine on bladder scan. Received Wise catheter. Continue with Flomax 0.4 mg daily. Replace magnesium 1 g. IV Lasix 20 mg one-time. CODE STATUS: Patient does not want any heroic measures to keep him alive. Wants to be DNR/DNI. Plan to discharge on hospice once finished treatment for pneumonia. Mechanical soft diet Protonix OPD prophylaxis Eliquis will be sufficient for DVT prophylaxis. Plan for the day: Continue with IV antibiotics with meropenem for 5 days. Discontinue vancomycin as MRSA swab negative. Continue azithromycin for 3-day course. Follow-up cultures. Wean Solu-Medrol 40 mg every 8 hourly. Continue with current pain medication of morphine 60 mg twice daily along with oxycodone 5 mg every 4 hours as needed. Oxygen supplementation keeping saturation over 88%. Wean accordingly. IV Lasix 20 mg one-time. Continue with Pulmicort twice daily, DuoNeb every 6 hour. Discussed care in detail with the patient again. He is agreeable for hospice on discharge. Agreeable for continuing IV antibiotics for now for at least 5-day course for possible pneumonia. Patient's care discussed in detail with daughter over the phone as well and all the questions were answered. She is also agreeable with hospice. PDMP PDMP Reviewed: Not Reviewed Attestations Medical Necessity Statement*: Requires further hospitalization for management of acute on chronic hypoxic respiratory failure in setting of recurrent postobstructive pneumonia, lung cancer, COPD exacerbation while outpatient hospice is set up Diagnoses Pneumonia J18.9 Laterality: right Lung location: middle lobe of lung Pneumonia type: due to unspecified organism Acute on chronic hypoxic respiratory failure J96.21 Chronic pulmonary embolism I27.82 Acute cor pulmonale presence: without acute cor pulmonale Pulmonary embolism type: other Malignant neoplasm of overlapping sites of right lung C34.81 Coronary artery disease involving [place] coronary artery of [place] heart without angina pectoris I25.10 Coronary Disease-Associated Artery/Lesion type: [place] artery [place] vs. transplanted heart: [place] heart Associated angina: without angina Atrial fibrillation I48.91 Chronic anticoagulation Z79.01 COPD (chronic obstructive pulmonary disease) J44.1 COPD type: COPD with acute exacerbation Goals of care, counseling/discussion Z71.89
[2025-01-26] MEDS: oxyCODONE-APAP 5-325 mg Tablet 1 TAB PO (17:34)
[2025-01-26] MEDS: azithromycin 250 mg Tablet 500 MG PO (21:24)
[2025-01-26] MEDS: pantoprazole 40 mg SDV IVP (21:24)
[2025-01-27] VITALS (7 sets, daily range): BP systolic 148–163; BP diastolic 83–86; PULSE 62–81; RESP 17–20; TEMP 36.3–36.7; O2SAT 92–96
[2025-01-27] MEDS: ipratropium-albuterol 3 mL Neb INHALATION ×2 (01:55→08:58)
[2025-01-27] MEDS: methylPREDNISolone sod succ 40 mg/mL INJ IVP (02:03)
[2025-01-27] MEDS: meropenem 1,000 mg SDV 1000 MG IVP (05:23)
[2025-01-27] MEDS: oxyCODONE-APAP 5-325 mg Tablet 1 TAB PO (05:33)
[2025-01-27 05:37] LABS: Basophils % 0.1 %; Hematocrit 28.1 % (37-53); Lymphocytes # 0.1 10^3/uL (0.8-4.8); Lymphocytes % 0.9 %; Mean Corpuscular HGB Conc 31.7 g/dL (30-55); Mean Corpuscular Hemoglobin 29.4 pg (27-33); Mean Corpuscular Volume 92.7 fl (82-101); Mean Platelet Volume 9.3 fL (7.4-10.4); Monocytes # 0.2 10^3/uL (0.2-0.9); Monocytes % 2.8 %; Neutrophils # 8.19 10^3/uL (1.8-7.7); Neutrophils % 95.4 %; Nucleated Red Blood Cells % 0 %; Platelet Count 215 10^3/cmm (157-399); Red Blood Count 3.03 10^6/uL (3.85-5.65); Red Cell Distribution Width 17.7 % (12.1-15.1); White Blood Count 8.59 10^3/uL (3.29-11.43)
[2025-01-27 05:56] LABS: Alanine Aminotransferase 7 U/L (0-41); Albumin Level 2.8 g/dL (3.5-5.2); Alkaline Phosphatase 86 U/L (40-130); Anion Gap 11.1 (5-19); Aspartate Amino Transferase 13 U/L (0-40); Blood Urea Nitrogen 17 mg/dL (8-23); Calcium 8.3 mg/dL (8.5-10.5); Carbon Dioxide 32 mmol/L (22-29); Chloride 100 mmol/L (98-107); Creatinine Clr Calc Pharmacy 74.4722; Globulin 2.4 g/dL (1.3-4.6); Glomerular Filtration Rate 133.2 mL/min (90-130); Glucose 120 mg/dL (65-115); Magnesium 1.9 mg/dL (1.7-2.3); Osmolality Calculated 293 mOsm/kg (285-295); Phosphorus 2.4 mg/dL (2.5-4.5); Potassium 3.1 mmol/L (3.5-5.1); Sodium 140 mmol/L (136-145); Total Bilirubin 0.6 mg/dL (0.15-1.2); Total Protein 5.2 g/dL (6.6-8.7)
[2025-01-27] MEDS: morphine ER (12 HR) 30 mg tablet 60 MG PO (08:52)
[2025-01-27] MEDS: amiodarone 200 mg Tablet PO (08:53)
[2025-01-27] MEDS: apixaban 5 mg Tablet PO (08:53)
[2025-01-27] MEDS: clopidogrel 75 mg Tablet PO (08:53)
[2025-01-27] MEDS: escitalopram 10 mg Tablet PO (08:53)
[2025-01-27] MEDS: budesonide 0.5 mg/2 mL Neb INHALATION (08:58)
--- NOTE | 2025-01-27 10:32 | PM.DCS ---
Discharge Providers Date of Admission: 01/24/25 17:45 Date of Discharge: January 27, 2025 Attending Provider at Admission: Lakisha Wen MD Attending Provider at Discharge: Idris Niño MD Primary Care Provider: Liya Huerta MD Diagnoses at Discharge Discharge Diagnosis (1) Pneumonia: Status: Acute Qualifiers: Laterality: right Lung location: middle lobe of lung Pneumonia type: due to unspecified organism Qualified Code(s): J18.9 - Pneumonia, unspecified organism (2) Acute on chronic hypoxic respiratory failure: Status: Acute (3) Chronic pulmonary embolism: Status: Acute Qualifiers: Acute cor pulmonale presence: without acute cor pulmonale Pulmonary embolism type: other Qualified Code(s): I27.82 - Chronic pulmonary embolism (4) Malignant neoplasm of overlapping sites of right lung: Status: Acute (5) CAD (coronary artery disease): Status: Acute Qualifiers: Coronary Disease-Associated Artery/Lesion type: [place] artery [place] vs. transplanted heart: [place] heart Associated angina: without angina Qualified Code(s): I25.10 - Atherosclerotic heart disease of [place] coronary artery without angina pectoris (6) Atrial fibrillation: Status: Acute (7) Chronic anticoagulation: Status: Acute (8) COPD (chronic obstructive pulmonary disease): Status: Acute Qualifiers: COPD type: COPD with acute exacerbation Qualified Code(s): J44.1 - Chronic obstructive pulmonary disease with (acute) exacerbation (9) Goals of care, counseling/discussion: Status: Acute Reason for Visit Reason for Visit: SOB Hospital Course Hospital Course Karthik Gordon is a 69 year old male with past medical history of invasive squamous cell lung carcinoma with last chemotherapy 2 weeks ago, recurrent pneumonia, COPD chronic PE fibrillation on Eliquis chronically on 2 L presents to the ER today difficulty in breathing worsening over last 4 to 5 days, cough requiring up to 10 L of oxygen supplementation to maintain saturation over 90% today along with increased expectoration. Patient denies any sick contact, nausea, vomiting, headache. States he is not on anymore chemotherapy because they make him weak tired and sick. Patient was admitted to the hospital further evaluation and management of postobstructive pneumonia. He was started on broad-spectrum IV antibiotics. During hospitalization his cultures remain negative. Patient remained on 5 to 6 L of oxygen. Given his baseline health, significant malignancy multiple goals of care discussions were done. We discussed in detail with the patient. Discussed unfortunately he is having recurrent postobstructive pneumonia given his lung cancer. Discussed as per oncology patient seem to have exhausted his options for treatment and they advised him to go hospice. He remembers having the conversation with oncology team and is agreeable to hospice eventually on discharge. He understands hospice would mean that goal would be to keep him comfortable at home as much as possible while nature takes its own course. He has been discharged back home on oral antibiotics for 5 more days as hospice has been set up. Physical Exam Narrative: General: No acute distress, AO x3, cachectic, sick appearing HEENT: PERRLA, pupils bilaterally equal and reactive Chest: Bilateral bronchial breath in the lower lung field with occasional rhonchi, coarse with blood present diffusely all over lung fowler, left more than right CVS: S1-S2 irregularly irregular, no murmurs, no tachycardia, no gallops, no rubs Abdomen: Soft, nontender, no organomegaly, bowel sounds present Neuro: No focal deficits, no facial deformity, AO x3, power 5/5 in all limbs Discharge Data Studies Completed and Pending Completed Studies During Hospitalization Category Date Time Status CT angio chest PE protcl [id number] Stat Cat Scan 01/24/25 14:28 Completed XR chest 1V portable [id number] Stat Exams 01/24/25 12:48 Completed Pending at discharge Category Date Time Status Blood Culture Stat Lab 01/24/25 15:00 Results Sputum Culture and Gram Stain Stat Lab 01/24/25 22:00 Results Urinalysis Routine Lab 01/24/25 21:01 Ordered Radiology Impressions Chest X-Ray 01/24/25 12:48 IMPRESSION: 1. Redemonstration of posttreatment changes of right hilar mass presumed to represent patient's known bronchogenic malignancy. 2. Persistent right perihilar opacities mildly improved from previous exam likely representing unresolved or recurrent pneumonia. 3. Simulated pneumothorax right upper lung zone believe secondary to skin fold for which repeat chest x-ray recommended for confirmation. Chest CTA 01/24/25 14:28 IMPRESSION: 1. Findings consistent with chronic pulmonary embolism limited 2 1st order segmental branch right lower lobe unchanged from earlier examination. No evidence of acute pulmonary embolism. 2. Spiculated lung mass right mid lung increasing size with soft tissue thickening extending to the right hilum that has developed likely representing progressive disease in this patient with known bronchogenic malignancy. 3. Interval development of bilateral lower lobe airway disease with accompanying bilateral subsegmental atelectasis along the paravertebral gutters. 4. Scattered focal ground-glass/interstitial infiltrates within the mid lung zones developed from previous exam presumed infectious in nature. 5. Additional chronic findings as above. Laboratory Results WBC 8.59 10^3/uL (3.29-11.43) 01/27/25 05:12 RBC 3.03 10^6/uL (3.85-5.65) L 01/27/25 05:12 Hgb 8.90 g/dL (11.27-16.99) L 01/27/25 05:12 Hct 28.1 % (37-53) L 01/27/25 05:12 MCV 92.7 fl (82-101) 01/27/25 05:12 MCH 29.4 pg (27-33) 01/27/25 05:12 MCHC 31.7 g/dL (30-55) 01/27/25 05:12 RDW 17.7 % (12.1-15.1) H 01/27/25 05:12 Plt Count 215 10^3/cmm (157-399) 01/27/25 05:12 MPV 9.3 fL (7.4-10.4) 01/27/25 05:12 Neut % (Auto) 95.4 % 01/27/25 05:12 Lymph % (Auto) 0.9 % 01/27/25 05:12 [place] % (Auto) 2.8 % 01/27/25 05:12 Eos % (Auto) 0.0 % 01/27/25 05:12 Baso % (Auto) 0.1 % 01/27/25 05:12 Neut # (Auto) 8.19 10^3/uL (1.8-7.7) H 01/27/25 05:12 Lymph # (Auto) 0.1 10^3/uL (0.8-4.8) L 01/27/25 05:12 [place] # (Auto) 0.2 10^3/uL (0.2-0.9) 01/27/25 05:12 Eos # (Auto) 0.0 10^3/uL (0.0-0.8) 01/27/25 05:12 Baso # (Auto) 0.0 10^3/uL (0.0-0.1) 01/27/25 05:12 Nucleated RBC % (auto) 0 % 01/27/25 05:12 Nucleated RBCs # 0.0 /100WBC 01/27/25 05:12 Specimen Type Arterial 01/24/25 15:56 Sample Site Brachial, left 01/24/25 15:56 ABG pH 7.34 (7.35-7.45) L 01/24/25 15:56 ABG pCO2 59.0 mmHg (35-45) H 01/24/25 15:56 ABG pO2 57.9 mmHg (80.0-100.0) L 01/24/25 15:56 ABG PO2/FiO2 Ratio 103 01/24/25 15:56 ABG HCO3 31.7 mmol/L (22-26) H 01/24/25 15:56 ABG O2 Saturation 88.9 01/24/25 15:56 ABG Base Excess 5.0 mmol/L (-2.0-2.0) H 01/24/25 15:56 Michael Test N/a 01/24/25 15:56 A-a O2 Gradient 35.2 mmHg (5-10) H 01/24/25 15:56 Hematocrit 27.2 % (42-52) L 01/24/25 15:56 Hgb O2 Saturation 87.1 % (95-100) L 01/24/25 15:56 Carboxyhemoglobin 1.7 %THgb (0.4-20.1) 01/24/25 15:56 Methemoglobin 0.3 % (0.4-1.5) L 01/24/25 15:56 Total Hemoglobin 8.9 g/dL (14-18) L 01/24/25 15:56 Sodium 136.0 mmol/L (131-143) 01/24/25 15:56 Potassium 3.1 mmol/L (3.5-5.0) L 01/24/25 15:56 Glucose 113.0 mg/dL (70-115) 01/24/25 15:56 Ionized Calcium 1.1 mmol/L (1.1-1.4) 01/24/25 15:56 O2 Delivery Device Nc 01/24/25 15:56 O2 Liters/Min 6.0 % 01/24/25 15:56 FiO2 56.0 % 01/24/25 15:56 Width Stripper ID glc 01/24/25 15:56 Sodium 140 mmol/L (136-145) 01/27/25 05:12 Potassium 3.1 mmol/L (3.5-5.1) L 01/27/25 05:12 Chloride 100 mmol/L (98-107) 01/27/25 05:12 Carbon Dioxide 32 mmol/L (22-29) H 01/27/25 05:12 Anion Gap 11.1 (5-19) 01/27/25 05:12 BUN 17 mg/dL (8-23) 01/27/25 05:12 Creatinine 0.6 mg/dL (0.7-1.2) L 01/27/25 05:12 GFR Calculation 133.2 mL/min (90-130) H 01/27/25 05:12 Glucose 120 mg/dL (65-115) H 01/27/25 05:12 Calculated Osmolality 293 mOsm/kg (285-295) 01/27/25 05:12 Lactic Acid 3.0 mmol/L (0.5-2.2) H 01/24/25 12:27 Lactic Acid (Sepsis) 1.3 mmol/L (0.5-2.2) 01/24/25 15:37 Calcium 8.3 mg/dL (8.5-10.5) L 01/27/25 05:12 Phosphorus 2.4 mg/dL (2.5-4.5) L 01/27/25 05:12 Magnesium 1.9 mg/dL (1.7-2.3) 01/27/25 05:12 Iron 14 ug/dL (59-158) L 01/24/25 18:14 TIBC 195 mcg/dl 01/24/25 18:14 % Saturation 7.1 % (20-50) L 01/24/25 18:14 Unsat Iron Binding 181 ug/dL (112-347) 01/24/25 18:14 Total Bilirubin 0.6 mg/dL (0.15-1.2) 01/27/25 05:12 AST 13 U/L (0-40) 01/27/25 05:12 ALT 7 U/L (0-41) 01/27/25 05:12 Alkaline Phosphatase 86 U/L (40-130) 01/27/25 05:12 Troponin T Baseline 39 ng/L (0-15) H 01/24/25 12:27 Troponin T 120 Minute 33.98 ng/L (0-15) H 01/24/25 15:04 Delta Troponin T -5.02 ABS# (0-10) L 01/24/25 15:04 Troponin T Hi Sens 6Hr 28.53 ng/L (0-15) H 01/24/25 18:14 Troponin T Hi Sens 6Hr Delta -10.47 ng/L (0-12) L 01/24/25 18:14 Total Protein 5.2 g/dL (6.6-8.7) L 01/27/25 05:12 Albumin 2.8 g/dL (3.5-5.2) L 01/27/25 05:12 Globulin 2.4 g/dL (1.3-4.6) 01/27/25 05:12 Vitamin B12 390 pg/mL (232-1245) 01/24/25 18:14 Folate 9.6 ng/mL (4.5-32.2) 01/25/25 03:10 Procalcitonin 0.46 ng/mL (0-0.5) 01/25/25 03:10 Urine Color Yellow (Yellow) 01/24/25 17:43 Urine Appearance Clear (CLEAR) 01/24/25 17:43 Urine pH 6.0 (5-7) 01/24/25 17:43 Ur Specific [place] 1.037 (1.005-1.030) H 01/24/25 17:43 Urine Protein Trace (Negative) A 01/24/25 17:43 Urine Glucose (UA) Negative (Normal) 01/24/25 17:43 Urine Ketones Negative (Negative) 01/24/25 17:43 Urine Blood Negative (Negative) 01/24/25 17:43 Urine Nitrate Negative (Negative) 01/24/25 17:43 Urine Bilirubin Negative (Negative) 01/24/25 17:43 Urine Urobilinogen 1.0 mg/dL (Negative) 01/24/25 17:43 Ur Leukocyte Esterase Negative (Negative) 01/24/25 17:43 Urine RBC 0-2 /hpf (0-2) 01/24/25 17:43 Urine WBC 0-5 /hpf (0-5) 01/24/25 17:43 Ur Squamous Epith Cells 0-5 /hpf (0-5) 01/24/25 17:43 Calcium Oxalate Crystal 5-10 /hpf H 01/24/25 17:43 Amorphous Sediment Not Reportable 01/24/25 17:43 Urine Bacteria None seen /hpf (NONE) 01/24/25 17:43 Hyaline Casts 1.65 /lpf 01/24/25 17:43 Nasal MRSA (PCR) Not detected (Negative) 01/24/25 22:00 Adenovirus (PCR) Not detected (NOT DETECT) 01/24/25 22:00 C. pneumoniae DNA (PCR) Not detected (NOT DETECT) 01/24/25 22:00 Coronavirus 229E (PCR) Not detected (NOT DETECT) 01/24/25 22:00 Human Metapneumovir PCR Not detected (NOT DETECT) 01/24/25 22:00 Influenza A (H1) PCR Not detected (NOT DETECT) 01/24/25 22:00 Influ A (H1/09) PCR Not detected (NOT DETECT) 01/24/25 22:00 Influenza A (H3) PCR Not detected (NOT DETECT) 01/24/25 22:00 Influenza Type A (PCR) Not detected (NOT DETECT) 01/24/25 22:00 Influenza Type B (PCR) Not detected (NOT DETECT) 01/24/25 22:00 M. pneumoniae (PCR) Not detected (NOT DETECT) 01/24/25 22:00 Parainfluenza 1 (PCR) Not detected (NOT DETECT) 01/24/25 22:00 Parainfluenza 2 (PCR) Not detected (NOT DETECT) 01/24/25 22:00 Parainfluenza 3 (PCR) Not detected (NOT DETECT) 01/24/25 22:00 Parainfluenza 4 (PCR) Not detected (NOT DETECT) 01/24/25 22:00 RSV Type A (PCR) Not detected (NOT DETECT) 01/24/25 22:00 RSV Type B (PCR) Not detected (NOT DETECT) 01/24/25 22:00 Entero/Rhino (PCR) Not detected (NOT DETECT) 01/24/25 22:00 SARS-CoV-2 (PCR) Not detected (NOT DETECT) 01/24/25 22:00 Vitals Last Vital Signs Temp 97.9 F 01/27/25 07:17 Pulse 77 01/27/25 08:59 Resp 18 01/27/25 08:59 BP 151/84 01/27/25 07:17 Pulse Ox 95 01/27/25 08:59 O2 Del Method Nasal Cannula 01/27/25 08:59 O2 Flow Rate 6 01/27/25 08:59 Discharge Plan Discharge Patient Disposition: Hospice - Home Condition: Stable Prescriptions: New cefdinir 300 mg capsule 300 mg PO BID 5 Days Qty: 10 0RF prednisone 10 mg tablet See Taper PO DIRECTED Qty: 42 0RF Taper: predniSONE 60-10 60 mg Daily for 2 Days and 0 Hour 50 mg Daily for 2 Days and 0 Hour 40 mg Daily for 2 Days and 0 Hour 30 mg Daily for 2 Days and 0 Hour 20 mg Daily for 2 Days and 0 Hour 10 mg Daily for 2 Days and 0 Hour Rx Instructions: see taper instructions Continued amiodarone 200 mg tablet 200 mg PO DAILY Qty: 30 0RF Eliquis 5 mg tablet 5 mg PO BID Qty: 60 0RF clopidogrel 75 mg tablet 75 mg PO DAILY Qty: 30 0RF escitalopram oxalate 10 mg tablet 10 mg PO DAILY Qty: 30 0RF famotidine 20 mg tablet 20 mg PO BID Qty: 60 0RF albuterol sulfate 90 mcg/actuation HFA aerosol inhaler 2 puff INHALATION Q6H PRN (Reason: shortness of breath or wheezing) Qty: 6.7 1RF furosemide 20 mg tablet 20 mg PO BID Qty: 60 0RF ipratropium-albuterol 0.5 mg-3 mg(2.5 mg base)/3 mL solution for nebulization 3 ml inhalation Q6H PRN (Reason: shortness of breath or wheezing) Qty: 90 0RF morphine 60 mg tablet extended release 60 mg PO Q12H 30 Days Qty: 60 0RF oxycodone-acetaminophen [Percocet] 10-325 mg tablet 1 tab PO Q8H PRN (Reason: pain) 30 Days Qty: 60 0RF ondansetron HCl 4 mg tablet 4 mg PO Q6H PRN (Reason: nausea and vomiting) Qty: 30 0RF lorazepam 1 mg tablet 0.5 - 1 mg PO Q6H PRN (Reason: severe nausea) Qty: 30 3RF (DME) Portable oxygen concentrator and supplies See Rx Instructions .Route .MEDSUPPLY Qty: 1 0RF Rx Instructions: As directed Discharge Orders: Discharge Order (Routine); Ordered 01/27/25 Ordered By: Idris Niño Referrals: Liya Huerta MD [Primary Care Provider, [facility]] - 7-10 days Discharge Diet: As Directed Discharge Activity: Resume usual activity and Increase activity as tolerated Patient Instructions: Opioid Safety Activity Restrictions/Additional Instructions: Home hospice Discharge Attestations Time Spent in Discharge Care*: greater than 30 min Specific Discharge Activities: educating patient, educating and/or supporting family/caregiver, discussing with pcp/other providers, discussing with child support case officer/social workers/dc planners, documenting/other paperwork and evaluating patient/reviewing data Status at Discharge: Cognitive status at discharge: cognitively intact, Behavioral status at discharge: cooperative, Functional status at discharge: other assisted ambulation, Overall status at discharge: patient is back to baseline Quality Metrics Clinical Quality Measures [ No reported AMI, CVA or VTE this stay] Coding Level of Care Code 58376 Total time (in minutes) for Discharge: 65 Diagnoses Pneumonia J18.9 Laterality: right Lung location: middle lobe of lung Pneumonia type: due to unspecified organism Acute on chronic hypoxic respiratory failure J96.21 Chronic pulmonary embolism I27.82 Acute cor pulmonale presence: without acute cor pulmonale Pulmonary embolism type: other Malignant neoplasm of overlapping sites of right lung C34.81 Coronary artery disease involving [place] coronary artery of [place] heart without angina pectoris I25.10 Coronary Disease-Associated Artery/Lesion type: [place] artery [place] vs. transplanted heart: [place] heart Associated angina: without angina Atrial fibrillation I48.91 Chronic anticoagulation Z79.01 COPD (chronic obstructive pulmonary disease) J44.1 COPD type: COPD with acute exacerbation Goals of care, counseling/discussion Z71.89
--- NOTE | 2025-01-27 12:18 | PC.SOCIAL ---
IMM Updated Updated pt on IMM. No questions voiced. Provided pt a copy. Initialed, dated, & timed a copy & placed in chart.
--- NOTE | 2025-01-27 12:47 | PC.SOCIAL ---
IMM Updated Updated pt on IMM. No questions voiced. Provided pt a copy. Initialed, dated, & timed a copy & placed in chart.
== END 2025-01-27 12:25 | disposition hospice, home (50) | DRG 193 ==
LOC: ER 15:01 → ICU 17:46 → MEDSURG 01-25 19:43
PROVIDERS: Admitting Provider Student in an Organized Health Care Education/Training Program; Emergency Provider Family Medicine; PCP Family Medicine; Visit Provider Student in an Organized Health Care Education/Training Program
DX: J18.9 Pneumonia, unspecified organism (principal); J96.21 Acute and chronic respiratory failure with hypoxia; J44.0 Chronic obstructive pulmonary disease with (acute) lower respiratory infection; J44.1 Chronic obstructive pulmonary disease with (acute) exacerbation; I27.82 Chronic pulmonary embolism; C34.81 Malignant neoplasm of overlapping sites of right bronchus and lung; C78.1 Secondary malignant neoplasm of mediastinum; C79.51 Secondary malignant neoplasm of bone; I25.10 Atherosclerotic heart disease of native coronary artery without angina pectoris; I48.91 Unspecified atrial fibrillation; I95.9 Hypotension, unspecified; D64.81 Anemia due to antineoplastic chemotherapy; N52.9 Male erectile dysfunction, unspecified; T40.2X5A Adverse effect of other opioids, initial encounter; M81.0 Age-related osteoporosis without current pathological fracture; G89.3 Neoplasm related pain (acute) (chronic); Z95.820 Peripheral vascular angioplasty status with implants and grafts; Z79.01 Long term (current) use of anticoagulants; Z79.60 Long term (current) use of unspecified immunomodulators and immunosuppressants; Z87.01 Personal history of pneumonia (recurrent); Z99.81 Dependence on supplemental oxygen; Z79.02 Long term (current) use of antithrombotics/antiplatelets; Z87.891 Personal history of nicotine dependence; Z79.891 Long term (current) use of opiate analgesic; Z79.51 Long term (current) use of inhaled steroids; Z86.718 Personal history of other venous thrombosis and embolism; Z88.0 Allergy status to penicillin; Z92.3 Personal history of irradiation; E78.5 Hyperlipidemia, unspecified; I73.9 Peripheral vascular disease, unspecified; K59.03 Drug induced constipation
CPT/HCPCS: 36415; 36600; 71045; 71275; 80051; 80053; 81001; 82330; 82607; 82746; 82805; 83540; 83550; 83605; 83735; 84100; 84145; 84484; 85025; 87040; 87070; 87205; 87486; 87581; 87633; 93005; 94640; 94664; 96361; 96374; 96375; 99285; J0692; J1938; J2185; J2270; J2470; J2919; J3370; J3475; J7030; J7626; J9999; Q0144

== ENCOUNTER 2025-03-03 21:10 | Emergency (ER) | payer MEDICARE, SELFPAY ==
--- OUTSIDE RECORDS SUMMARY | 2025-03-03 21:15 | XMS_ITS | Clinical Summary ---
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 PLUS [facility] MCR
[2025-03-03 21:17] VITALS: BP 125/69; PULSE 109; RESP 26; O2SAT 96; BMI 12.5
--- NOTE | 2025-03-03 21:31 | ECG_ITS ---
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
--- NOTE | 2025-03-03 21:31 | XRR_ITS ---
PROCEDURE INFORMATION: Exam: XR Chest Exam date and time: 03/03/2025 9:43 PM Age: 69 years old Clinical indication: Dyspnea TECHNIQUE: Imaging protocol: Radiologic exam of the chest. Views: 1 view. COMPARISON: CT angio chest PE protcl [id number] 01/24/2025 3:51 PM FINDINGS: Lungs: Redemonstrated indistinct right hilar mass with increasing adjacent opacities. The left lung remains relatively clear. Left hilar granulomas again seen. Pleural spaces: Unremarkable. No pleural effusion. No pneumothorax. Heart/Mediastinum: Unremarkable. No cardiomegaly. Bones/joints: Right reverse shoulder arthroplasty partially imaged. Midthoracic vertebroplasty. XR/XR chest 1V portable [id number] IMPRESSION: 1. Redemonstrated right hilar mass with slightly increased adjacent opacities, possibly atelectasis/scarring, though superimposed infection is difficult to exclude in the correct clinical setting. 2. Remainder stable.
[2025-03-03 21:38] LABS: ABG PCO2 31.9 mmHg (35-45); ABG PH Result 7.41 (7.35-7.45); Alveolar-Arterial Oxygen Gradi 5.8 mmHg (5-10); Arterial Blood Gas Hematocrit 44.1 % (42-52); Blood Gas LPM 15.0 %; Blood Gas Sample Site Brachial, right; Blood Gas Sample Type Arterial; Carboxyhemoglobin 1.2 %THgb (0.4-20.1); Glucose Level-ABG 112.0 mg/dL (70-115); HCO3 ABG 20.2 mmol/L (22-26); Ionized Calcium Level - ABG 1.1 mmol/L (1.1-1.4); Methemoglobin 0.9 % (0.4-1.5); Oxygen Saturation ABG 91.2; PO2 ABG 65.2 mmHg (80.0-100.0); Potassium Level - ABG 3.7 mmol/L (3.5-5.0); Sodium Level - ABG 136.0 mmol/L (131-143)
[2025-03-03 21:43] VITALS: TEMP 36.2
[2025-03-03 22:41] LABS: Hematocrit 44.5 % (37-53); Hemoglobin 14.10 g/dL (11.27-16.99); Mean Corpuscular HGB Conc 31.7 g/dL (30-55); Mean Corpuscular Hemoglobin 30.3 pg (27-33); Mean Corpuscular Volume 95.7 fl (82-101); Nucleated Red Blood Cells % 0 %; Platelet Count 341 10^3/cmm (157-399); Red Blood Count 4.65 10^6/uL (3.85-5.65); White Blood Count 10.02 10^3/uL (3.29-11.43)
[2025-03-03] MEDS: fentaNYL 50 mcg/mL INJ 2mL IVP (22:42)
[2025-03-03] MEDS: ondansetron 2 mg/ML SDV 2 mL 4 MG IVP (22:43)
[2025-03-03 23:03] LABS: Alanine Aminotransferase 16 U/L (0-41); Albumin Level 3.1 g/dL (3.5-5.2); Alkaline Phosphatase 153 U/L (40-130); Anion Gap 33.6 (5-19); Aspartate Amino Transferase 39 U/L (0-40); Blood Urea Nitrogen 39 mg/dL (8-23); Calcium 9.1 mg/dL (8.5-10.5); Carbon Dioxide 18 mmol/L (22-29); Chloride 89 mmol/L (98-107); Creatinine Clr Calc Pharmacy 26.4594; Globulin 3.6 g/dL (1.3-4.6); Glucose 103 mg/dL (65-115); Osmolality Calculated 294 mOsm/kg (285-295); Potassium 3.6 mmol/L (3.5-5.1); Sodium 137 mmol/L (136-145); Total Protein 6.7 g/dL (6.6-8.7)
--- NOTE | 2025-03-03 23:28 | W.ED.SOB ---
HPI - SOB/Dyspnea General: Chief Complaint: Shortness of Breath/Dyspnea Stated Complaint: SOB AND CP Time Seen by Provider: 03/03/25 21:21 History of Present Illness: HPI Narrative: 69-year-old male with history of end-stage lung cancer. He is on hospice and takes morphine at home for pain. He lives with a roommate. Apparently his pain was uncontrolled today so came to the emergency department. When EMS arrived they noticed that he was short of breath and ended up having to put him on 15 L nonrebreather. He is normally on 8 L of oxygen daily. He is complaining mostly of just pain. Patient confirms that he is DNR. Related Data Previous Rx's ?Medication ?Instructions ?Recorded lorazepam 1 mg tablet 0.5 - 1 mg (0.5 - 1 x 1 mg) PO Q6H 10/03/24 PRN severe nausea #30 tabs Portable oxygen concentrator and #1 ea 10/13/24 supplies albuterol sulfate 90 mcg/actuation 2 puff inhalation Q6H PRN 01/04/25 aerosol inhaler shortness of breath or wheezing #6.7 grams amiodarone 200 mg tablet 200 mg PO DAILY #30 tabs 01/04/25 apixaban 5 mg tablet (Eliquis) 5 mg PO BID #60 tabs 01/04/25 clopidogrel 75 mg tablet 75 mg PO DAILY #30 tabs 01/04/25 escitalopram oxalate 10 mg tablet 10 mg PO DAILY #30 tabs 01/04/25 famotidine 20 mg tablet 20 mg PO BID #60 tabs 01/04/25 furosemide 20 mg tablet 20 mg PO BID #60 tabs 01/04/25 ipratropium 0.5 mg-albuterol 3 mg 3 ml inhalation Q6H PRN shortness 01/04/25 (2.5 mg base)/3 mL nebulization of breath or wheezing #90 mL soln morphine 60 mg tablet,extended 60 mg PO Q12H 30 days #60 tabs 01/04/25 release ondansetron HCl 4 mg tablet 4 mg PO Q6H PRN nausea and 01/04/25 vomiting #30 tabs oxycodone-acetaminophen 10 mg-325 1 tab PO Q8H PRN pain 30 days #60 01/04/25 mg tablet (Percocet) tabs prednisone 10 mg tablet See Taper PO DIRECTED #42 tabs 01/27/25 Allergies Allergy/AdvReac Type Severity Reaction Status Date / Time Penicillins Allergy Unknown ALGY-Swell Verified 01/16/25 10:29 Lip/Tongue/Throat [facility] PFSH: Medical History (Updated 01/28/25 @ 00:00 by KAREN Wilkins) COPD (chronic obstructive pulmonary disease) CAD (coronary artery disease) Atrial fibrillation Chronic anticoagulation Chronic pulmonary embolism Osteoporosis Pneumonia Opioid-induced constipation Pulmonary embolism Spinal stenosis Port-A-Cath in place but then had removed Compression fracture of T7 vertebra Cavitary lesion of lung Constipation Cancer related pain Non-small cell lung cancer Immunosuppressed due to chemotherapy Drug or medicinal substance causing adverse effect in therapeutic use Antineoplastic chemotherapy induced anemia Chemotherapy-induced vomiting Secondary malignant neoplasm of mediastinum Chemotherapy management, encounter for Malignant neoplasm of overlapping sites of right lung Lung cancer metastatic to bone GI (gastrointestinal bleed) Mass of right lung Bilateral direct inguinal hernia Tobacco abuse PAD (peripheral artery disease) Erectile 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 Hyperlipidemia Surgical History History of back surgery Status post peripheral artery angioplasty with insertion of stent History of angioplasty of peripheral vessel History of right shoulder replacement History of chest tube placement History of laparoscopic cholecystectomy Family History Father Diabetes Brother , AGE 60 CAD (coronary artery disease) Myocardial infarction Mother Diabetes Grandfather Diabetes MATERNAL Grandmother Diabetes MATERNAL Social History Smoking and tobacco/nicotine status: former use of tobacco/nicotine Quit status (tobacco/nicotine): has quit using Year quit tobacco: 2022 Former quit date comment: has had no cigarette tobacco for 10 days/smoked for 50 years Alcohol intake: former Substance/Drug Use: current Substance/Drug use frequency: few times a week Household members: none Marital status: Number of children: 1 service: No 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 kings needs: No Physical Exam Const: OTHER: Cachectic appearing Neck/C-Spine: COMMON NORMALS: no JVD Resp: OTHER: Tachypneic and increased respiratory effort Cardio: COMMON NORMALS: no JVD, regular rate, regular rhythm, S1 normal heart sound present, S2 normal heart sound present, No gallops present (Cardio), No clicks present (Cardio), No murmurs present (Cardio), No rub (Cardio) and Peripheral pulses 2+ throughout RATE: regular rate RHYTHM: regular rhythm HEART SOUNDS: S1 normal heart sound present and S2 normal heart sound present PERIPHERAL PULSES: Peripheral pulses 2+ throughout Neuro: OTHER: Patient able to answer questions but he does seem to be somewhat altered. He is pulling on lines and seems to be somewhat confused. Skin: COMMON NORMALS: no rashes or lesions noted, no wounds, turgor normal, no jaundice, no petechiae and no mottling GENERAL SKIN EXAM: no rashes or lesions noted and turgor normal Course Vital Signs: Vital signs: Vital Signs Temperature 97.1 F L 03/03/25 21:43 Pulse Rate 107 H 03/04/25 00:08 Respiratory Rate 33 H 03/04/25 00:08 Blood Pressure 59/40 03/04/25 00:08 Pulse Oximetry 89 L 03/03/25 23:50 Oxygen Delivery Me thod High Flow Nasal C annula 03/03/25 23:55 Oxygen Flow Rate 12 03/03/25 23:55 MDM - SOB/Dyspnea Medical Decision Making 69-year-old male who presents emerged part with complaints of shortness of breath and pain. He has end-stage lung cancer and is on hospice. He has been taking morphine at home that has not been controlling his pain. He is normally on oxygen but having an increased O2 requirement. Hospice was called and the hospice nurse came to the hospital to help assist. Attempted to get hold of patient's family with no success. Patient was given IV pain medication to help control his pain. He was given oxygen. Patient decompensated fairly quickly while here in the emergency department. He is DNR and eventually just went hypotensive and bradycardic. Patient did lose pulses. DNR was confirmed and CPR was not initiated due to patient's wishes of being a DNR. As patient is on hospice it is most reasonable to allow a natural . Time of called at 0058. Lab Data 03/03/25 22:27 03/03/25 22:27 Labs/Radiology: Radiology Impressions Chest X-Ray 03/03/25 21:31 IMPRESSION: 1. Redemonstrated right hilar mass with slightly increased adjacent opacities, possibly atelectasis/scarring, though superimposed infection is difficult to exclude in the correct clinical setting. 2. Remainder stable. Laboratory Results WBC 10.02 10^3/uL (3.29-11.43) 03/03/25: RBC 4.65 10^6/uL (3.85-5.65) 03/03/25: Hgb 14.10 g/dL (11.27-16.99) 03/03/25: Hct 44.5 % (37-53) 03/03/25: MCV 95.7 fl (82-101) 03/03/25: MCH 30.3 pg (27-33) 03/03/25: MCHC 31.7 g/dL (30-55) 03/03/25: RDW 14.5 % (12.1-15.1) 03/03/25: Plt Count 341 10^3/cmm (157-399) 03/03/25: MPV 9.8 fL (7.4-10.4) 03/03/25: Neut % (Auto) 94.0 % 03/03/25: Lymph % (Auto) 1.1 % 03/03/25: Love % (Auto) 3.5 % 03/03/25: Eos % (Auto) 0.4 % 03/03/25: Baso % (Auto) 0.4 % 03/03/25: Neut # (Auto) 9.42 10^3/uL (1.8-7.7) H 03/03/25: Lymph # (Auto) 0.1 10^3/uL (0.8-4.8) L 03/03/25: Love # (Auto) 0.4 10^3/uL (0.2-0.9) 03/03/25: Eos # (Auto) 0.0 10^3/uL (0.0-0.8) 03/03/25: Baso # (Auto) 0.0 10^3/uL (0.0-0.1) 03/03/25: Nucleated RBC % (auto) 0 % 07/04/25 22:27 Nucleated RBCs # 0.0 /100WBC 03/03/25 22:27 Specimen Type Arterial 03/03/25 21:28 Sample Site Brachial, right 03/03/25 21: ABG pH 7.41 (7.35-7.45) 03/03/25 21: ABG pCO2 31.9 mmHg (35-45) L 03/03/25 21: ABG pO2 65.2 mmHg (80.0-100.0) L 03/03/25 21: ABG HCO3 20.2 mmol/L (22-26) L 03/03/25 21: ABG O2 Saturation 91.2 03/03/25 21: ABG Base Excess -3.4 mmol/L (-2.0-2.0) L 03/03/25 21: Michael Test N/a 03/03/25: A-a O2 Gradient 5.8 mmHg (5-10) 03/03/25 21: Hematocrit 44.1 % (42-52) 03/03/25 21: Hgb O2 Saturation 89.3 % (95-100) L 03/03/25 21: Carboxyhemoglobin 1.2 %THgb (0.4-20.1) 03/03/25 21: Methemoglobin 0.9 % (0.4-1.5) 03/03/25 21: Total Hemoglobin 14.4 g/dL (14-18) 03/03/25 21: Sodium 136.0 mmol/L (131-143) 03/03/25 21: Potassium 3.7 mmol/L (3.5-5.0) 03/03/25 21: Glucose 112.0 mg/dL (70-115) 03/03/25 21: Ionized Calcium 1.1 mmol/L (1.1-1.4) 03/03/25 21: O2 Delivery Device Nrb 03/03/25 21: O2 Liters/Min 15.0 % 03/03/25 21: Residential Construction Instructor ID [email or web address] 03/03/25 21: Sodium 137 mmol/L (136-145) 03/03/25 22:27 Potassium 3.6 mmol/L (3.5-5.1) 03/03/25 22:27 Chloride 89 mmol/L (98-107) L 03/03/25 22:27 Carbon Dioxide 18 mmol/L (22-29) L 03/03/25 22:27 Anion Gap 33.6 (5-19) H 03/03/25 22:27 BUN 39 mg/dL (8-23) H 03/03/25 22:27 Creatinine 1.5 mg/dL (0.7-1.2) H 03/03/25 22:27 GFR Calculation 46.3 mL/min (90-130) L 03/03/25 22:27 Glucose 103 mg/dL (65-115) 03/03/25 22: Calculated Osmolality 294 mOsm/kg (285-295) 03/03/25 22: Calcium 9.1 mg/dL (8.5-10.5) 03/03/25 22: Total Bilirubin 2.2 mg/dL (0.15-1.2) H 03/03/25 22:27 AST 39 U/L (0-40) 03/03/25 22:27 ALT 16 U/L (0-41) 03/03/25 22:27 Alkaline Phosphatase 153 U/L (40-130) H 03/03/25 22:27 Total Protein 6.7 g/dL (6.6-8.7) 03/03/25 22: Albumin 3.1 g/dL (3.5-5.2) L 03/03/25 22:27 Globulin 3.6 g/dL (1.3-4.6) 03/03/25 22:27 All radiology interpretation(s) finalized by discharge Discharge Plan Discharge Patient Disposition: Coding Level of Care Code ED [employer]airman for Kvng Smith
[2025-03-03 23:50] VITALS: RESP 34; O2SAT 89
[2025-03-03] MEDS: fentaNYL 50 mcg/mL INJ 2mL 25 MCG IVP (23:50)
--- NOTE | 2025-03-03 23:50 | PC.NURSE ---
initial dose ordered per provider was 50 mcg. 50 mcg wasted with Michael Mckeon RN at [facility]. upon entering room Dr. Javier at bedside and verbal order changed to 25mcg to be given. 25 mcg wasted per myself and Michael at bedside. Pt given 25 mcg IVP.
--- NOTE | 2025-03-03 23:53 | PC.NURSE ---
Hospice Nurse at bedside and attempting to gather information and formulate plan.
--- NOTE | 2025-03-03 23:54 | PC.NURSE ---
8875- at the Ok of patient , hugo Saini attempted to be contacted but unable to obtain contact and voicemail left to return telephone call.
[2025-03-03 23:55] VITALS: PULSE 79; RESP 26
--- NOTE | 2025-03-03 23:55 | PC.NURSE ---
2324- spoke with Donny Mata who is patients roommate and contact info for hugo obtained. Donny updated at [place] of patient of patients status .
[2025-03-04 00:08] VITALS: BP 59/40; PULSE 107; RESP 33
--- NOTE | 2025-03-04 00:13 | PC.NURSE ---
multiple attempts to obtain accurate spo2 over last 1 hour with little to no success. provider noified. pt on 12 L NC at this time. pt with increased agitation , moving around in bed and pointing/pulling at objects not present. Hospice nurse at bedside. pt with noted lowering of blood pressure and provider aware. Hospice nurse at bedside formulating plan .
[2025-03-04 00:45] VITALS: PULSE 79; RESP 28
[2025-03-04 00:50] VITALS: PULSE 37; RESP 10
--- NOTE | 2025-03-04 01:13 | PC.NURSE ---
[facility] been notified of patient in the ER. Mr. Alarcon has authorized release of body.
--- NOTE | 2025-03-04 01:33 | PC.NURSE ---
0050- pt with noted increasing bradycardia from 90's heart to 58 bradycardia . provider notified and at bedside. 0057- pt with noted 10 pulse with noted PEA. Provider Dr. Lynn at bedside. 0058- Pt T.O.D. called per Dr. lynn at bedside. 0100- Notified warehouse processor of patient T.O.D. 0105- Pts roommate , Jovani called and notified of of patient. 0130- Attempted to Call Leeann Palacios ([phone]) with no answer. Voicemail left . table games supervisor , Neda, Notified.
--- NOTE | 2025-03-04 01:33 | PC.NURSE ---
0114 [facility] has been notified and has released patients body. Zhanna from [facility] says to hold patient for [facility] at this time.
--- NOTE | 2025-03-04 02:15 | PC.NURSE ---
NS drops placed in patients eyes and head placed on pillow, awaiting call from [facility]. More time 0215.
--- NOTE | 2025-03-04 02:18 | PC.NURSE ---
0200- patients body transported to [facility] per motor power connector and Neda , supervisor mirror fabrication.
--- NOTE | 2025-03-04 13:19 | PC.NURSE ---
[facility] has released the patient.
--- NOTE | 2025-03-04 13:20 | PC.NURSE ---
Daughter Leeann Gordon notified of patient passing at 1254. Leeann Gordon verbalized understanding of patient's wishes to be taken to [facility] home via telephone witnessed by this RN and DESTINEY RN.
== END 2025-03-04 02:01 | disposition expired ==
PROVIDERS: Emergency Provider Emergency Medicine; PCP Family Medicine
DX: I95.9 Hypotension, unspecified (principal); R00.1 Bradycardia, unspecified; R06.02 Shortness of breath; C34.01 Malignant neoplasm of right main bronchus; Z87.891 Personal history of nicotine dependence; I25.10 Atherosclerotic heart disease of native coronary artery without angina pectoris; J44.9 Chronic obstructive pulmonary disease, unspecified; C78.1 Secondary malignant neoplasm of mediastinum
CPT/HCPCS: 36415; 36600; 71045; 80051; 80053; 82330; 82805; 85025; 93005; 93010; 94640; 96374; 96375; 96376; 99285; J2405; J3010; J9999